=== PATIENT | female | born 1945 | race Caucasian/White ===

== ENCOUNTER 2016-08-23 19:43 | Inpatient (IN) ==
[2016-08-23] MEDS ORDERED: methylPREDNISolone 125 MG/2 ML VIAL IVP ONE (20:02)
[2016-08-23] MEDS ORDERED: Ipratropium/Albuterol Neb 3 ML IH ONE (20:02)
--- NOTE | 2016-08-23 20:04 | Emergency Department Note ---
Disposition Clinical Impression: Acute exacerbation of chronic obstructive airways disease, Congestive heart failure, Acute and chronic respiratory failure Disposition: Admitted As Inpatient Referrals: NO,PCP [Non-Partnered Physician] - Forms: ED Satisfaction Letter [facility] - General Chief Complaint: ED Shortness of Breath/Dyspnea Stated Complaint: KATJA Time Seen by Provider: 08/23/16 19:51 Source: patient, family Limitations: no limitations - History of Present Illness Pt Subjective Complaint: shortness of breath Onset (ago): hour(s) (8) Severity: mild Consistency/Duration: constant, gradually worsening Improves with: bronchodilators Worsens with: exertion Known history of: COPD, congestive heart failure Associated symptoms: Denies: chest pain, fever, sputum production Treatment prior to arrival: bronchodilator - Related Data Allergies Allergy/AdvReac Type Severity Reaction Status Date / Time No Known Allergies Allergy Verified 08/23/16 19:46 All systems ED: reviewed and negative except as stated. Constitutional: Reports: weakness. Denies: fever, chills Neurological: Reports: confusion (per daughter improved now) Past Medical History - Past Medical History Source: patient, old records reviewed, obtained from family (daughter ), nursing notes reviewed Medical history: Reports: CHF, COPD, diabetes, hypertension Psychiatric history: Reports: anxiety, depression - Social History Smoking Status: Never smoker Smokeless Tobacco Status: No Alcohol use: Reports: none Drug use: Reports: none Physical Exam - General Limitations: no limitations General appearance: alert, in no apparent distress - Head Head exam: atraumatic, normocephalic, normal inspection - Eye Eye exam: Present: normal appearance, PERRL, EOMI - ENT ENT exam: normal exam, normal oropharynx, mucous membranes moist - Neck Neck exam: Present: normal inspection, full ROM, trachea midline - Chest Chest inspection: Present: normal inspection, symmetric chest wall rise - Respiratory Respiratory exam: Present: respiratory distress (milde), wheezes (scattered), accessory muscle use, prolonged expiratory phase - Cardiovascular Cardiovascular exam: Present: normal rhythm, tachycardia, other (3+ pitting edema) - Abdominal Exam Abdominal exam: Present: soft, Non-Tender. Absent: tenderness, distention, guarding, rebound, rigidity - Back Exam Back exam: Present: normal inspection, full ROM. Absent: tenderness - Neurological Exam Neurological exam: Present: alert, oriented X3 - Psychiatric Psychiatric exam: Present: normal affect, normal mood - Skin Skin exam: Present: warm, dry, intact, normal color Course - Reevaluation(s) Reevaluation #1: Patient states she does not feel feels better I think she has chronic issues with hypoxemia the daughter and her state that she normally runs 90% or lower home despite home oxygen Time: 22:31 Reevaluation #2: dr. paris to admit Time: 22:31 Vital Signs Temperature 98.8 F 08/23/16 19:46 Pulse Rate 111 08/23/16 19:46 Respiratory Rate 20 08/23/16 19:46 Blood Pressure 158/52 08/23/16 19:46 O2 Sat by Pulse Oximetry 83 L 08/23/16 19:46 Temperature 98.8 F 08/23/16 19:46 Pulse Rate 94 08/23/16 21:56 Respiratory Rate 20 08/23/16 21:56 Blood Pressure 154/60 08/23/16 21:56 O2 Sat by Pulse Oximetry 86 L 08/23/16 21:56 Oxygen Delivery Oxygen Delivery Nasal Cannula Shortness of Breath/Dyspnea - Differential Diagnosis Likely: acute exacerbation of chronic obstructive airways disease, congestive heart failure, pneumonia, asthma with exacerbation, pulmonary embolism, pneumothorax, arrhythmia - Medical Records Medical records reviewed: Yes I reviewed the patient's medical records. - Lab Data Lab results reviewed: Yes I reviewed the patient's lab results. Result diagrams: 08/23/16 20:33 08/23/16 20:33 Lab Results 08/23/16 08/23/16 08/23/16 Range/Units 20:20 20:33 20:33 WBC 13.6 H (4.3-11.1) K/mcL RBC 4.04 (3.82-4.97) M/mcL Hgb 12.2 (11.5-15.4) g/dL Hct 38.1 (35.3-44.9) % MCV 94.3 (83.0-100.0) fL MCH 30.2 (28.0-33.3) pg MCHC 32.0 (31.6-35.5) g/dL RDW 15.9 H (11.5-14.5) % Plt Count 153 (140-400) K/mcL MPV 10.3 (9.4-12.4) fL Immature Gran % 0.5 (0-4) % Seg Neutrophils % 83.2 % Lymphocytes % 8.6 % Monocytes % 7.3 % Eosinophils % 0.2 % Basophils % 0.2 % Neutrophils # 11.3 H (1.6-8.9) K/mcL Lymphocytes # 1.2 (0.6-4.6) K/mcL Monocytes # 1.0 (0.0-1.3) K/mcL Eosinophils # 0.0 (0.0-0.6) K/mcL Basophils # 0.0 (0.0-0.2) K/mcL PT 11.8 (9.4-12.1) Seconds INR 1.1 APTT 28.4 (26.0-36.0) Seconds ABG pH 7.40 (7.32-7.45) pH Units ABG pCO2 48 H (35-45) mmHg ABG pO2 80 L (85-104) mmHg ABG HCO3 29.7 H (21-27) mEQ/L ABG Total CO2 31.2 H (20-26) mEq/L ABG O2 Saturation 96 (95-98) % ABG Base Excess 4.1 H (-2.0 to 3.0) mEq/L Blood Gas Modality NRB Inspired O2 100 % Sodium (136-145) mEq/L Potassium (3.5-4.5) mEq/L Chloride (98-109) mEq/L Carbon Dioxide (19-29) mEq/L BUN (7-20) mg/dL Creatinine (0.57-1.11) mg/dL Est GFR ( Amer) (> 60) Est GFR (Non-Af Amer) (> 60) BUN/Creatinine Ratio (6-26) Glucose (70-99) mg/dL Calculated Osmolality (280-300) Calcium (8.6-10.8) mg/dL Troponin I (0-0.03) ng/mL B-Natriuretic Peptide (0-100) pg/mL 08/23/16 08/23/16 08/23/16 Range/Units 20:33 20:33 20:33 WBC (4.3-11.1) K/mcL RBC (3.82-4.97) M/mcL Hgb (11.5-15.4) g/dL Hct (35.3-44.9) % MCV (83.0-100.0) fL MCH (28.0-33.3) pg MCHC (31.6-35.5) g/dL RDW (11.5-14.5) % Plt Count (140-400) K/mcL MPV (9.4-12.4) fL Immature Gran % (0-4) % Seg Neutrophils % % Lymphocytes % % Monocytes % % Eosinophils % % Basophils % % Neutrophils # (1.6-8.9) K/mcL Lymphocytes # (0.6-4.6) K/mcL Monocytes # (0.0-1.3) K/mcL Eosinophils # (0.0-0.6) K/mcL Basophils # (0.0-0.2) K/mcL PT (9.4-12.1) Seconds INR APTT (26.0-36.0) Seconds ABG pH (7.32-7.45) pH Units ABG pCO2 (35-45) mmHg ABG pO2 (85-104) mmHg ABG HCO3 (21-27) mEQ/L ABG Total CO2 (20-26) mEq/L ABG O2 Saturation (95-98) % ABG Base Excess (-2.0 to 3.0) mEq/L Blood Gas Modality Inspired O2 % Sodium 137 (136-145) mEq/L Potassium 4.9 H (3.5-4.5) mEq/L Chloride 97 L (98-109) mEq/L Carbon Dioxide 25 (19-29) mEq/L BUN 44 H (7-20) mg/dL Creatinine 1.51 H (0.57-1.11) mg/dL Est GFR ( Amer) 41 L (> 60) Est GFR (Non-Af Amer) 34 L (> 60) BUN/Creatinine Ratio 29 H (6-26) Glucose 183 H (70-99) mg/dL Calculated Osmolality 300 (280-300) Calcium 9.8 (8.6-10.8) mg/dL Troponin I 0.01 (0-0.03) ng/mL B-Natriuretic Peptide 90 (0-100) pg/mL - Radiology Data Radiology results reviewed: Yes I reviewed the patient's radiology results. Critical Care Time Critical Care Time: Yes Total Critical Care Time: 35 Attestation: Critical care performed: Time is exclusive of separately billable procedures. Time includes: direct patient care, patient reassessment, coordination of patient care, interpretation of data (laboratory data, radiology data, and respiratory data), review of patient's medical records, medical consultation and documentation of patient care. Procedures included in critical care time: Procedures excluded from critical care time:
[2016-08-23 20:30] LABS: ABG Base Excess 4.1 mEq/L (-2.0 to 3.0); ABG HCO3 29.7 mEQ/L (21-27); ABG Oxygen Saturation 96 % (95-98); ABG PCO2 48 mmHg (35-45); ABG PO2 80 mmHg (85-104); ABG TCO2 31.2 mEq/L (20-26); Blood Gas FiO2 100 %
[2016-08-23 20:39] LABS: Basophils % 0.2 %; Eosinophils % 0.2 %; Hematocrit 38.1 % (35.3-44.9); Hemoglobin 12.2 g/dL (11.5-15.4); Immature Granulocytes % 0.5 % (0-4); Lymphocytes # 1.2 K/mcL (0.6-4.6); Lymphocytes % 8.6 %; Mean Corpuscular Hemoglobin 30.2 pg (28.0-33.3); Mean Corpuscular Volume 94.3 fL (83.0-100.0); Mean Platelet Volume 10.3 fL (9.4-12.4); Monocytes % 7.3 %; Neutrophils # 11.3 K/mcL (1.6-8.9); Platelet Count 153 K/mcL (140-400); Red Blood Count 4.04 M/mcL (3.82-4.97); Red Cell Distribution Width 15.9 % (11.5-14.5); Segmented Neutrophils % 83.2 %
[2016-08-23 20:51] LABS: Calcium 9.8 mg/dL (8.6-10.8); Potassium 4.9 mEq/L (3.5-4.5)
[2016-08-23 21:10] LABS: INR 1.1; Prothrombin Time 11.8 Seconds (9.4-12.1)
[2016-08-23 21:13] LABS: Activated Partial Thrombo Time 28.4 Seconds (26.0-36.0)
[2016-08-23] MEDS ORDERED: Furosemide 40 MG/4 ML VIAL IVP ONE (21:13)
[2016-08-23] MEDS ORDERED: Levofloxacin 750 MG/150 ML 750 MG/150 ML BAG IVPB ONE (22:16)
[2016-08-24] MEDS ORDERED: *HR* HYDROcodone/Acet 5/325 mg TABLET PO PRN (00:20)
[2016-08-24] MEDS ORDERED: Acetaminophen 325 MG TABLET PO PRN (00:20)
[2016-08-24] MEDS ORDERED: Naloxone 0.4 MG/ML INJ IVP PRN (00:20)
[2016-08-24] MEDS ORDERED: Fluticasone Propionate Nasal 50 MCG/SPRAY BOTTLE NS PRN (00:23)
[2016-08-24] MEDS ORDERED: hydrOXYzine pamoate 25 MG CAPSULE PO PRN (00:23)
[2016-08-24] MEDS ORDERED: Albuterol 2.5 MG/3 ML NEBULIZER IH PRN (00:25)
[2016-08-24] MEDS ORDERED: D5% in Water 1,000 ML IV PRN (00:27)
[2016-08-24] MEDS ORDERED: *HR* Dextrose 50 % in Water (Syg) 50 ML SYRINGE IVP PRN (00:27)
[2016-08-24] MEDS ORDERED: Dextrose Gel 15 GM PO PRN ×2 (00:27)
--- NOTE | 2016-08-24 00:38 | Internal Med History&Physical ---
Date of Encounter: 08/24/16 Time of Encounter: 00:31 Assessment and Plan (1) Acute and chronic respiratory failure Current visit: Yes Status: Acute Patient wears 2-4L of oxygen at night and PRN at home. She has increased shortness of breath, cough, wheeze. She reports satting in the 70's at home on room air. She is currently satting 90% on 5L NC. CXR showed vascular congestion with bilateral lower lobe atelectasis or infiltrate. ABG showed hypercapnea with pH 7.2, PCO2 48, PO2 80, HCO3 29.7, CO2 31.2 and O2 sat 96%. Lasix for diuresis and CHF exacerbation, solumedrol for COPD exacerbation Duoneb treatments QIDR Albuterol nebulizer Q2hr PRN titrate O2 to maintain Oxygen saturation > 88% Qualifiers: Respiratory failure complication: hypoxia and hypercapnia Qualified Code(s) : J96.21 - Acute and chronic respiratory failure with hypoxia; J96.22 - Acute and chronic respiratory failure with hypercapnia (2) Acute on chronic congestive heart failure Current visit: Yes Status: Acute Patient with increased shortness of breath, increased bilateral lower extremity edema. Reports history of CHF, but no recent Echo. CXR shows vascular congestion with bilateral lower lobe atelectasis or infiltrate. 40mg Lasix IVP daily Echocardiogram ordered. titrate O2 to maintain oxygen saturation > 88% Qualifiers: Congestive heart failure type: unspecified congestive heart failure type Qualified Code(s): I50.9 - Heart failure, unspecified (3) Acute kidney injury Current visit: Yes Status: Acute Creatinine 1.51 up from previous of 1.04. Likely cardiorenal with acute exacerbation of CHF. Patient also on scheduled NSAIDS at home. Hold NSAIDS and metformin Recheck chemistry in the morning. (4) Type 2 diabetes mellitus Current visit: Yes Status: Acute Diabetic diet Hold metformin check blood sugar ACHS Sliding scale correction dose insulin ACHS hypoglycemic protocol Qualifiers: Diabetes mellitus complication status: without complication Diabetes mellitus group home insulin use: without terminal operations manager use Qualified Code(s): E11.9 - Type 2 diabetes mellitus without complications (5) Acute exacerbation of chronic obstructive airways disease Current visit: Yes Status: Acute Patient wears 2-4L of oxygen at night and PRN at home. She has increased shortness of breath, cough, wheeze. She reports satting in the 70's at home on room air. She is currently satting 90% on 5L NC. CXR showed vascular congestion with bilateral lower lobe atelectasis or infiltrate. ABG showed hypercapnea with pH 7.2, PCO2 48, PO2 80, HCO3 29.7, CO2 31.2 and O2 sat 96%. Duoneb treatments QIDR Albuterol nebulizer Q2hr PRN titrate O2 to maintain Oxygen saturation > 88% Solumedrol 40mg IVP Q8 hours (6) DVT prophylaxis Current visit: Yes Status: Acute Ambulate with assistance anti-embolic stockings Heparin 5,000u SQ BID Internal Medicine - H&P: HPI Chief complaint: shortness of breath Admitted From: Emergency Dept Plans for Post Hospital Care: Home History of present illness: Ms. Pollack is a 70 year old female with CHF, COPD, type 2 diabetes, HTN, hyperlipidemia who presented to the ED today with increased shortness of breath. She reports she has noticed increased shortness of breath, cough, wheezing over the last few days. She also felt weak and drowsy today. She has also noted increased swelling in her lower extremities. She has a pulse oximeter at home and stated her pulse-ox was in the 70's on room air at home. She usually wears 2-4L of oxygen at home at night and PRN. She denies any chest pain, palpitations, headache, fever, chills. She does endorse sweats on and off. She denies any nausea, vomiting or abdominal pain. Evaluation in the ED was significant for CXR which showed vascular congestion with bilateral lower lobe atelectasis or infiltrate. She had elevated WBC count to 13.6. She has acute kidney injury with creatinine of 1.51. ABG showed hypercapnea with PCO2 of 48. Troponin was negative at 0.01 and BNP was 90. On exam, patient alert and oriented, in no distress. Her lungs have diffuse rhonchi, and she is satting 90% on 5L NC. She has bilateral lower extremity +3 edema. Past Med Surg Social Fam HX - Past Medical History Medical history: CHF, COPD, diabetes, hypertension Psychiatric history: anxiety, depression - Past Surgical History Surgical History: appendectomy, - Social History Smoking Status: Former smoker (100 Pack year history) Smokeless Tobacco Status: No Alcohol use: none Drug use: none - Family History Mother Living Status: Age at : 68 Cause of : Cancer Hx Family Cardiac Disorders: Yes Father Living Status: Age at : 53 Cause of : Cancer Hx Family Cancer: Yes Internal Medicine - H&P: Meds Acetaminophen w/Cod 300-30 mg [Tylenol w/Codeine #3] 1 each PO TID PRN 08/23/16 [History] Albuterol Sulfate [Albuterol Inhaler] 2 puff IH Q4H PRN 08/23/16 [History] Amitriptyline [Elavil] 10 mg PO HS 08/23/16 [History] Ascorbate Calcium [Vitamin C] 500 mg PO DAILY 08/23/16 [History] Aspirin 81 mg PO DAILY 08/23/16 [History] Biotin 1 mg PO DAILY 08/23/16 [History] Calcium Carbonate/Vitamin D3 [Calcium 600 with Vit D Chew Tb] 1 each PO DAILY [History] Ergocalciferol (VITAMIN D2) [Vitamin D] 400 unit PO DAILY 08/23/16 [History] Fish Oil/Dha/Epa [Fish Oil 1,200 mg Fish Oil] 1 each PO DAILY 08/23/16 [History] Fluticasone Propionate Nasal [Flonase] 50 mcg NS DAILY PRN 08/23/16 [History] Furosemide [Lasix] 40 mg PO BID 08/23/16 [History] Hydroxyzine HCl [Hydroxyzine HCl] 25 mg PO HS PRN 08/23/16 [History] Lisinopril [Lisinopril] 40 mg PO DAILY 08/23/16 [History] Lovastatin [Lovastatin] 40 mg PO QPM 08/23/16 [History] Meloxicam [Meloxicam] 15 mg PO DAILY 08/23/16 [History] Metformin [Glucophage] 500 mg PO DAILY 08/23/16 [History] Metoprolol [Lopressor] 100 mg PO BID 08/23/16 [History] Tiotropium Carmine [Spiriva] 18 mcg IH DAILY 08/23/16 [History] Vitamin B Complex 1 each PO DAILY 08/23/16 [History] Zinc Sulfate [Zinc-15] 66 mg PO DAILY 08/23/16 [History] Allergies No Known Allergies Allergy (Verified 08/23/16 19:46) All Systems PM: A 10-system review of systems was performed and is negative for pertinent findings except as documented above in the HPI. - Constitutional Constitutional: night sweats, no chills, no fever(s) - EENT Eyes: no change in vision, no discharge, no pain, no photophobia Ears: no ear discharge, no ear pain, no tinnitus Nose, mouth and throat: no dysphagia, no nasal discharge, no neck pain, no sore throat - Cardiovascular Cardiovascular ROS IM: diaphoresis, dyspnea, dyspnea on exertion, no chest pain , no lightheadedness, no palpitations, no syncope - Respiratory Respiratory: cough, dyspnea, dyspnea on exertion, wheezing, no excessive phlegm production - Gastrointestinal Gastrointestinal: no abdominal pain, no diarrhea, no hematemesis, no hematochezia, no melena, no nausea, no vomiting - Genitourinary Genitourinary: no change in urinary stream, no dysuria, no flank pain, no hematuria - Musculoskeletal Musculoskeletal ROS IM: no numbness, no tingling - Integumentary Integumentary IM: no rash, no unusual bruising - Neurological Neurological ROS: tingling (BLE chronic diabetic neuropathy), no confusion, no convulsions, no focal weakness, no numbness, no tremor(s) - Hematologic/Lymphatic Hematologic/Lymphatic: no easy bruising - Constitutional Vitals: Temp Pulse Resp BP Pulse Ox 98.8 F 92 18 142/81 88 L 08/23/16 23:58 08/23/16 23:58 08/23/16 23:58 08/23/16 23:58 08/23/16 23:58 General appearance: Present: A&O X 3, morbidly obese, no acute distress - Head Head exam: Present: atraumatic, normocephalic - Eye Eye exam: Present: PERRL, conjuntiva pink, sclera anicteric Pupils: Present: PERRL - Neck Neck exam general surgery: Present: supple, trachea midline. Absent: lymphadenopathy - Respiratory Respiratory exam: Present: rhonchi, wheezes. Absent: accessory muscle use, rales - Cardiovascular Cardiovascular exam: Present: RRR, +S1, +S2. Absent: diastolic murmur, gallop, rubs, systolic murmur - GI/Abdominal GI/Abdominal exam: Present: normal bowel sounds, soft, no peritoneal signs. Absent: distended, tenderness - Extremities Exam Extremities exam: Present: pedal edema (+3 BLE edema), warm, radial pulses palpable and symetrical. Absent: calf tenderness, cyanotic - Neurological Exam Neurological exam: Present: CN II-XII intact, oriented X3, no focal deficits. Absent: facial droop, speech deficit - Skin Skin exam: Present: dry, intact Internal Med - H&P Results - Labs CBC & Chem 7: 08/23/16 20:33 08/23/16 20:33 Labs: All Lab Results (24 Hours) 08/23/16 08/23/16 08/23/16 Range/Units 20:20 20:33 20:33 WBC 13.6 H (4.3-11.1) K/mcL RBC 4.04 (3.82-4.97) M/mcL Hgb 12.2 (11.5-15.4) g/dL Hct 38.1 (35.3-44.9) % MCV 94.3 (83.0-100.0) fL MCH 30.2 (28.0-33.3) pg MCHC 32.0 (31.6-35.5) g/dL RDW 15.9 H (11.5-14.5) % Plt Count 153 (140-400) K/mcL MPV 10.3 (9.4-12.4) fL Immature Gran % 0.5 (0-4) % Seg Neutrophils % 83.2 % Lymphocytes % 8.6 % Monocytes % 7.3 % Eosinophils % 0.2 % Basophils % 0.2 % Neutrophils # 11.3 H (1.6-8.9) K/mcL Lymphocytes # 1.2 (0.6-4.6) K/mcL Monocytes # 1.0 (0.0-1.3) K/mcL Eosinophils # 0.0 (0.0-0.6) K/mcL Basophils # 0.0 (0.0-0.2) K/mcL PT 11.8 (9.4-12.1) Seconds INR 1.1 APTT 28.4 (26.0-36.0) Seconds ABG pH 7.40 (7.32-7.45) pH Units ABG pCO2 48 H (35-45) mmHg ABG pO2 80 L (85-104) mmHg ABG HCO3 29.7 H (21-27) mEQ/L ABG Total CO2 31.2 H (20-26) mEq/L ABG O2 Saturation 96 (95-98) % ABG Base Excess 4.1 H (-2.0 to 3.0) mEq/L Blood Gas Modality NRB Inspired O2 100 % Sodium (136-145) mEq/L Potassium (3.5-4.5) mEq/L Chloride (98-109) mEq/L Carbon Dioxide (19-29) mEq/L BUN (7-20) mg/dL Creatinine (0.57-1.11) mg/dL Est GFR ( Amer) (> 60) Est GFR (Non-Af Amer) (> 60) BUN/Creatinine Ratio (6-26) Glucose (70-99) mg/dL Calculated Osmolality (280-300) Calcium (8.6-10.8) mg/dL Troponin I (0-0.03) ng/mL B-Natriuretic Peptide (0-100) pg/mL 08/23/16 08/23/16 08/23/16 Range/Units 20:33 20:33 20:33 WBC (4.3-11.1) K/mcL RBC (3.82-4.97) M/mcL Hgb (11.5-15.4) g/dL Hct (35.3-44.9) % MCV (83.0-100.0) fL MCH (28.0-33.3) pg MCHC (31.6-35.5) g/dL RDW (11.5-14.5) % Plt Count (140-400) K/mcL MPV (9.4-12.4) fL Immature Gran % (0-4) % Seg Neutrophils % % Lymphocytes % % Monocytes % % Eosinophils % % Basophils % % Neutrophils # (1.6-8.9) K/mcL Lymphocytes # (0.6-4.6) K/mcL Monocytes # (0.0-1.3) K/mcL Eosinophils # (0.0-0.6) K/mcL Basophils # (0.0-0.2) K/mcL PT (9.4-12.1) Seconds INR APTT (26.0-36.0) Seconds ABG pH (7.32-7.45) pH Units ABG pCO2 (35-45) mmHg ABG pO2 (85-104) mmHg ABG HCO3 (21-27) mEQ/L ABG Total CO2 (20-26) mEq/L ABG O2 Saturation (95-98) % ABG Base Excess (-2.0 to 3.0) mEq/L Blood Gas Modality Inspired O2 % Sodium 137 (136-145) mEq/L Potassium 4.9 H (3.5-4.5) mEq/L Chloride 97 L (98-109) mEq/L Carbon Dioxide 25 (19-29) mEq/L BUN 44 H (7-20) mg/dL Creatinine 1.51 H (0.57-1.11) mg/dL Est GFR ( Amer) 41 L (> 60) Est GFR (Non-Af Amer) 34 L (> 60) BUN/Creatinine Ratio 29 H (6-26) Glucose 183 H (70-99) mg/dL Calculated Osmolality 300 (280-300) Calcium 9.8 (8.6-10.8) mg/dL Troponin I 0.01 (0-0.03) ng/mL B-Natriuretic Peptide 90 (0-100) pg/mL
[2016-08-24] MEDS: Metoprolol 100 MG TABLET PO SCH ×3 (00:56→20:59)
[2016-08-24] MEDS: Insulin LISPRO 300 UNITS/3 ML VIAL SQ SCH ×5 (00:56→21:00)
[2016-08-24] MEDS: Ipratropium/Albuterol Neb 3 ML IH SCH ×5 (02:47→23:16)
[2016-08-24 05:26] LABS: Basophils % 0.1 %; Hematocrit 38.1 % (35.3-44.9); Hemoglobin 12.3 g/dL (11.5-15.4); Immature Granulocytes % 0.6 % (0-4); Lymphocytes # 0.6 K/mcL (0.6-4.6); Lymphocytes % 5.6 %; Mean Corpuscular HGB Conc 32.3 g/dL (31.6-35.5); Mean Corpuscular Hemoglobin 30.5 pg (28.0-33.3); Mean Corpuscular Volume 94.5 fL (83.0-100.0); Mean Platelet Volume 11.1 fL (9.4-12.4); Monocytes # 0.2 K/mcL (0.0-1.3); Neutrophils # 10.5 K/mcL (1.6-8.9); Platelet Count 150 K/mcL (140-400); Red Blood Count 4.03 M/mcL (3.82-4.97); Red Cell Distribution Width 15.9 % (11.5-14.5); Segmented Neutrophils % 91.7 %
[2016-08-24 05:36] LABS: Hemoglobin A1C 6.3 %
[2016-08-24 05:45] LABS: Calcium 9.8 mg/dL (8.6-10.8); Potassium 4.8 mEq/L (3.5-4.5)
[2016-08-24] MEDS: *HR* Heparin 5,000 UNIT/ML VIAL SQ SCH ×2 (06:35→17:05)
[2016-08-24] MEDS: MethylPREDNISolone 40 MG/ML VIAL IVP SCH ×2 (08:37→17:06)
[2016-08-24] MEDS: Ascorbic Acid 500 MG TABLET PO SCH (08:38)
[2016-08-24] MEDS: BIOTIN 1 MG PO SCH (08:38)
[2016-08-24] MEDS: Vitamin B Complex/Vit C/Vit E 1 EACH TABLET PO SCH (08:38)
[2016-08-24] MEDS: Aspirin 81 MG TAB.CHEW PO SCH (08:38)
[2016-08-24] MEDS: CALCIUM PO SCH (08:38)
[2016-08-24] MEDS: VIT D PO SCH (08:38)
[2016-08-24] MEDS: ZINC SULFATE 66 MG PO SCH (08:39)
[2016-08-24] MEDS ORDERED: Furosemide 40 MG/4 ML VIAL IVP SCH (09:00)
--- NOTE | 2016-08-24 09:58 | Internal Med Progress Note ---
<Simon Pickard - Last Filed: 08/24/16 11:42> Date of Encounter: 08/24/16 Time of Encounter: 09:58 - Assessment and plan (1) Acute on chronic respiratory failure Current Visit: Yes Status: Acute Assessment and plan: Likely multifactorial from obesity hypoven syndrome, uncontrolled CAMILLE, AE of COPD and possible underlying CHF, will con't to bronchodilate her and diresis with lasix, her SOB and b/l LE edema improved. Qualifiers: Qualified Code(s): J96.20 - Acute and chronic respiratory failure, unspecified whether with hypoxia or hypercapnia (2) Hx of congestive heart failure Current Visit: Yes Status: Acute Assessment and plan: Will obtain echo, renal function worsened, so will back off of lasix and change to po, strict I and O and check daily weight. Daily fluid restriction. (3) Acute worsening of stage 3 chronic kidney disease Current Visit: Yes Status: Acute Assessment and plan: Could be from overdiuresing her, will back off of lasix and switch to PO. Con't to monitor renal function. (4) Acute exacerbation of chronic obstructive airways disease Current Visit: Yes Status: Acute Assessment and plan: Con't symbicort, IV steroid, duoneb, oxygen support and po abx. (5) Type 2 diabetes mellitus Current Visit: Yes Status: Acute Assessment and plan: Hold po med and con't SSI. 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 - Subjective Interval history: Pt seen and examined, states her breathing is better than yesterday, b/l le edema improved. - Constitutional Vitals: Temp Pulse Resp BP Pulse Ox 97.4 F L 72 18 179/59 89 L 08/24/16 07:39 08/24/16 07:39 08/24/16 07:39 08/24/16 07:39 08/24/16 07:39 General appearance: Present: cooperative, A&O X 3, morbidly obese, no acute distress - Head Head exam: Present: atraumatic, normocephalic - Eye Eye exam: Present: PERRL, conjuntiva pink, sclera anicteric Pupils: Present: PERRL - Neck Neck exam general surgery: Present: supple, trachea midline. Absent: lymphadenopathy - Respiratory Respiratory exam: Present: rales (at base b/l). Absent: accessory muscle use, rhonchi, wheezes - Cardiovascular Cardiovascular exam: Present: RRR, +S1, +S2. Absent: diastolic murmur, gallop, rubs, systolic murmur - GI/Abdominal GI/Abdominal exam: Present: normal bowel sounds, soft, no peritoneal signs. Absent: distended, tenderness - Extremities Exam Extremities exam: Present: pedal edema (mild non-pitting b/l), warm, radial pulses palpable and symetrical. Absent: calf tenderness, cyanotic - Neurological Exam Neurological exam: Present: CN II-XII intact, oriented X3, no focal deficits. Absent: pronater drift, facial droop, speech deficit - Skin Skin exam: Present: dry, intact Internal Medicine: Result - Labs CBC & Chem 7: 08/24/16 04:42 08/24/16 04:42 Labs: Short CBC 08/24/16 Range/Units 04:42 WBC 11.5 H (4.3-11.1) K/mcL Hgb 12.3 (11.5-15.4) g/dL Hct 38.1 (35.3-44.9) % Plt Count 150 (140-400) K/mcL Neutrophils # 10.5 H (1.6-8.9) K/mcL BMP 08/24/16 04:42 Sodium 137 Potassium 4.8 H Chloride 96 L Carbon Dioxide 24 BUN 46 H Creatinine 1.69 H Glucose 258 H Calcium 9.8 - ABG Interpretation ABG results: ABG ABG pH 7.40 pH Units (7.32-7.45) 08/23/16 20:20 ABG pCO2 48 mmHg (35-45) H 08/23/16 20:20 ABG pO2 80 mmHg (85-104) L 08/23/16 20:20 ABG O2 Saturation 96 % (95-98) 08/23/16 20:20 PT/INR, D-dimer PT 11.8 Seconds (9.4-12.1) 08/23/16 20:33 Consult Discharge Plan - Plan Referrals: Eduardo Hernandez Jr, MD [Primary Care Provider] - 09/13/16 3:00 pm <Darius Velazquez Kedar - Last Filed: 08/25/16 12:18> Date of Encounter: 08/24/16 - Constitutional Vitals: Temp Pulse Resp BP Pulse Ox 97.8 F 73 18 166/70 90 L 08/25/16 11:37 08/25/16 11:37 08/25/16 11:37 08/25/16 11:37 08/25/16 11:37 Internal Medicine: Result - Labs CBC & Chem 7: 08/24/16 04:42 08/25/16 03:21 Labs: BMP 08/25/16 03:21 Sodium 136 Potassium 5.4 H Chloride 99 Carbon Dioxide 24 BUN 55 H Creatinine 1.61 H Glucose 345 H Calcium 9.0 Urine 08/24/16 Range/Units 22:19 Urine Color Yellow (Yellow) Urine Clarity Cloudy A (Clear) Urine pH 5.0 (5.0-8.0) pH Units Ur Specific [place] 1.013 (1.010-1.025) Urine Protein Negative (Neg-Trace) mg/dL Urine Glucose (UA) 500 H (Normal) mg/dL - ABG Interpretation ABG results: ABG ABG pH 7.40 pH Units (7.32-7.45) 08/23/16 20:20 ABG pCO2 48 mmHg (35-45) H 08/23/16 20:20 ABG pO2 80 mmHg (85-104) L 08/23/16 20:20 ABG O2 Saturation 96 % (95-98) 08/23/16 20:20 PT/INR, D-dimer PT 11.8 Seconds (9.4-12.1) 08/23/16 20:33 - Attending Attestation I examined this patient and my medical decision-making was reviewed with the Resident Physician on 08/24/16. I agree with the documented findings, disposition and treatment plan as described except to the extent set forth below. Ms Pollack is currently in observation for acute hypoxic resp failure and CHF. She remains moderate to high risk due to potential of worsening respiratory symptoms Ms. Pollack is beginning to feel better. She still has a lot of dyspnea. No cough but is wheezing. Resp treatments help. No GI symptoms. Exam Alert. Comfortable Heart reg Diffuse wheeze I/P Acute on chronic hypoxic resp failure COPD exac MARISSA Diabetes Further diagnoses and plan as above
[2016-08-24] MEDS ORDERED: Perflutren Lipid Microsphere 1.3 ML in 0.9 % Sodium Chloride 8.7 ML IVP ONE (10:56)
--- NOTE | 2016-08-24 11:04 | Electrocardiograph Report ---
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
[2016-08-24] MEDS: Budesonide/Formoterol 160/4.5 MDI IH SCH ×2 (11:55→23:16)
[2016-08-24] MEDS: Azithromycin 250 MG TABLET PO SCH (12:22)
--- NOTE | 2016-08-24 14:17 | ECHO - Doppler Report ---
Echo with Imaging Enhancement Agent Name: Garima Pollack Date of Study: 08/24/2016 Date: 1945 Ht: 65.0 in Medical Record#: [id number] Age: 70 Wt: 280.0 lb Gender: Female BSA: 2.28 Order #: [id number] Location: [facility] Room #: 2NE22 Reading Physician: Ki Nicholson, DO, FACC, MORIAH, CHANDLER Cardiac Rehabilitation Specialist: Stefanie Fontaine, RVT Ordering Physician: Delma Madrid CNP Primary Physician: Eduardo Hernandez MD Indications: Shortness of breath, COPD Impressions: Technically sub-optimal due to poor echocardiographic windows. LVEF 55%. Normal LV chamber size and function. Mild concentric left ventricular hypertrophy. Mild left ventricular diastolic dysfunction. Right ventricle was not well visualized. Unable to estimate RVSP due to lack of TR jet. Valves were not well visualized on this study. Findings: Study Quality * Technically sub-optimal due to poor echocardiographic windows. ECG Findings * Normal sinus rhythm. Left Ventricle * LVEF 55%. * Normal LV chamber size and function. * Mild concentric left ventricular hypertrophy. * Mild left ventricular diastolic dysfunction. Right Ventricle * Right ventricle was not well visualized. Left Atrium * Left atrium is not well visualized. Right Atrium * Right atrium is not well visualized. Interatrial Septum * Interatrial septum not well evaluated. Aortic Valve * Aortic valve not well visualized. * No aortic stenosis. * No aortic regurgitation. Mitral Valve * Mitral valve not well visualized. * No mitral regurgitation. * No mitral stenosis. Tricuspid Valve * Tricuspid valve not well visualized. * No tricuspid regurgitation. * Unable to estimate RVSP due to lack of TR jet. Pulmonic Valve * Pulmonic valve not well visualized. Aorta * Normally sized aortic root. Pericardium * The pericardium appears normal. IVC * The IVC is not well evaluated. Pulmonary Artery * Pulmonary artery not well visualized. History Hypertension Diabetes Hypercholesteremia Congestive Heart Failure 12/2012 a Previous Echo was performed. Contrast: Definity 1.3 ml in 8.7 ml of saline 2 ml. Measurements: BP: 104/ 57 2D Normal Values RVIDd: 2.60 cm <2.7 cm IVSd: 1.30 cm 0.6 - 1.0 cm LVIDd: 4.90 cm 3.7 - 5.6 cm LVPWd: 1.30 cm 0.6 - 1.1 cm LVIDs: 3.90 cm 1.5 - 3.6 cm AO: 2.70 cm < 4.0 cm LA: 4.40 cm 2.0 - 4.0cm %FS: 20.40 cm >25 % LA volume: Mitral Valve Dec Time:194.00 msec Peak E:1.03 m/sec Peak A:1.29 m/sec E/A Ratio:0.8 E/E' Lat Ratio:13.4 E/E' Med Ratio:20.3 Updated by Ki Nicholson DO, MARK, MORIAH, CHANDLER on 08/24/2016 2:09:51 PM electronically signed on 08/24/2016 2:10:51 PM with status of [employer] [place]: 1=Normal, 2=Hypokinesis, 3=Akinesis, 4=Dyskinesis, 5=Aneurysmal, 6=Hyperkinetic, X=Not Visualized (Blank)=Missing
[2016-08-24] MEDS: Nystatin POWDER 30 GM BOTTLE TP SCH ×2 (20:59→21:00)
[2016-08-24 22:30] LABS: Bilirubin,Urine Negative (Negative); Blood,Urine Negative (Negative); Clarity,Urine Cloudy (Clear); Color,Urine Yellow (Yellow); Glucose,Urine (UA) 500 mg/dL (Normal); Ketones,Urine Negative (Negative); Leukocyte Esterase,Urine Large (Negative); Nitrite,Urine Negative (Negative); Protein,Urine Negative (Neg-Trace); Specific Gravity,Urine 1.013 (1.010-1.025); Urobilinogen,Urine Normal (Normal)
[2016-08-24 22:33] LABS: Bacteria,Urine Moderate per hpf (None-Few); Hyaline Casts,Urine None Seen per lpf (None-Few); RBC,Urine 0-3 per hpf (0-3); Squamous Epithelial Cell,Urine Many per lpf (None-Few); WBC,Urine TNTC per hpf (0-3)
[2016-08-25] MEDS: MethylPREDNISolone 40 MG/ML VIAL IVP SCH ×2 (00:33→08:37)
[2016-08-25] MEDS: Ipratropium/Albuterol Neb 3 ML IH SCH ×4 (04:06→21:59)
[2016-08-25 04:24] LABS: Potassium 5.4 mEq/L (3.5-4.5)
[2016-08-25] MEDS: *HR* Heparin 5,000 UNIT/ML VIAL SQ SCH ×2 (06:03→17:12)
[2016-08-25] MEDS: Insulin LISPRO 300 UNITS/3 ML VIAL SQ SCH ×4 (08:32→21:05)
[2016-08-25] MEDS: Vitamin B Complex/Vit C/Vit E 1 EACH TABLET PO SCH (08:36)
[2016-08-25] MEDS: Furosemide 20 MG TABLET PO SCH ×2 (08:36→17:12)
[2016-08-25] MEDS: Metoprolol 100 MG TABLET PO SCH ×2 (08:36→21:05)
[2016-08-25] MEDS: Aspirin 81 MG TAB.CHEW PO SCH (08:37)
[2016-08-25] MEDS: BIOTIN 1 MG PO SCH (08:37)
[2016-08-25] MEDS: VIT D PO SCH (08:37)
[2016-08-25] MEDS: CALCIUM PO SCH (08:37)
[2016-08-25] MEDS: Azithromycin 250 MG TABLET PO SCH (08:39)
[2016-08-25] MEDS: Ascorbic Acid 500 MG TABLET PO SCH (08:39)
[2016-08-25] MEDS: ZINC SULFATE 66 MG PO SCH (08:39)
--- NOTE | 2016-08-25 09:01 | Internal Med Progress Note ---
<Simon Pickard - Last Filed: 08/25/16 10:01> Date of Encounter: 08/25/16 Time of Encounter: 09:01 - Assessment and plan (1) Acute on chronic respiratory failure Current Visit: Yes Status: Acute Assessment and plan: Likely multifactorial from obesity hypoven syndrome, uncontrolled CAMILLE, AE of COPD, will con't to bronchodilate her and diresis with lasix, her SOB and b/l LE edema improved, she states that she will have sleep study as outpt near future. Her SOB is close to baseline, likely d/c tomorrow. Qualifiers: Qualified Code(s): J96.21 - Acute and chronic respiratory failure with hypoxia (2) Hx of congestive heart failure Current Visit: Yes Status: Acute Assessment and plan: Echo was normal, but pt states that she was diagnosed with CHF in the past and she takes lasix at home, con't po lasix, strict I and O and check daily weight. Daily fluid restriction. (3) Acute worsening of stage 3 chronic kidney disease Current Visit: Yes Status: Acute Assessment and plan: Improved after backing off of lasix and switched to PO. Con't to monitor renal function. (4) Acute exacerbation of chronic obstructive airways disease Current Visit: Yes Status: Acute Assessment and plan: Con't symbicort, IV steroid, duoneb, oxygen support and po abx. (5) Type 2 diabetes mellitus Current Visit: Yes Status: Acute Assessment and plan: Hyperglycemic, will add basal and increase to med SSI. Qualifiers: Diabetes mellitus complication status: without complication Diabetes mellitus group home insulin use: without terminal gauger use Qualified Code(s): E11.9 - Type 2 diabetes mellitus without complications (6) Hyperkalemia Current Visit: Yes Status: Acute Assessment and plan: No meds that will make potassium worse, on lasix, con't to monitor. (7) UTI (urinary tract infection) Current Visit: Yes Status: Acute Assessment and plan: UA suggests UTI, she has multiple hx of UTI, will start her on levaquin for possible complicated UTI (hx of DM II), f/u on its culture. Qualifiers: Qualified Code(s): N39.0 - Urinary tract infection, site not specified (8) DVT prophylaxis Current Visit: Yes Status: Acute Assessment and plan: Heparin SQ BID. - Subjective Interval history: Pt seen and examined, states her breathing is better than yesterday, b/l le edema improved, hx of multiple UTI, no burning/dysuria now. - Constitutional Vitals: Temp Pulse Resp BP Pulse Ox 97.8 F 66 18 155/80 92 L 08/25/16 07:45 08/25/16 07:45 08/25/16 07:45 08/25/16 07:45 08/25/16 07:45 General appearance: Present: cooperative, A&O X 3, morbidly obese, no acute distress - Head Head exam: Present: atraumatic, normocephalic - Eye Eye exam: Present: PERRL, conjuntiva pink, sclera anicteric Pupils: Present: PERRL - Neck Neck exam general surgery: Present: supple, trachea midline. Absent: lymphadenopathy - Respiratory Respiratory exam: Present: decreased breath sounds (at base b/l). Absent: accessory muscle use, rales, rhonchi, wheezes - Cardiovascular Cardiovascular exam: Present: RRR, +S1, +S2. Absent: diastolic murmur, gallop, rubs, systolic murmur - GI/Abdominal GI/Abdominal exam: Present: normal bowel sounds, soft, no peritoneal signs. Absent: distended, tenderness - Extremities Exam Extremities exam: Present: pedal edema (non-pitting b/l), warm, radial pulses palpable and symetrical. Absent: calf tenderness, cyanotic - Neurological Exam Neurological exam: Present: CN II-XII intact, oriented X3, no focal deficits. Absent: pronater drift, facial droop, speech deficit - Skin Skin exam: Present: dry, intact Internal Medicine: Result - Labs CBC & Chem 7: 08/24/16 04:42 08/25/16 03:21 Labs: BMP 08/25/16 03:21 Sodium 136 Potassium 5.4 H Chloride 99 Carbon Dioxide 24 BUN 55 H Creatinine 1.61 H Glucose 345 H Calcium 9.0 Urine 08/24/16 Range/Units 22:19 Urine Color Yellow (Yellow) Urine Clarity Cloudy A (Clear) Urine pH 5.0 (5.0-8.0) pH Units Ur Specific [place] 1.013 (1.010-1.025) Urine Protein Negative (Neg-Trace) mg/dL Urine Glucose (UA) 500 H (Normal) mg/dL - ABG Interpretation ABG results: ABG ABG pH 7.40 pH Units (7.32-7.45) 08/23/16 20:20 ABG pCO2 48 mmHg (35-45) H 08/23/16 20:20 ABG pO2 80 mmHg (85-104) L 08/23/16 20:20 ABG O2 Saturation 96 % (95-98) 08/23/16 20:20 PT/INR, D-dimer PT 11.8 Seconds (9.4-12.1) 08/23/16 20:33 Consult Discharge Plan - Plan Referrals: Eduardo Hernandez Jr, MD [Primary Care Provider] - 09/13/16 3:00 pm <Darius Velazquez - Last Filed: 08/25/16 15:08> Date of Encounter: 08/25/16 - Assessment and plan (1) Acute on chronic respiratory failure Current Visit: Yes Status: Acute Qualifiers: Respiratory failure complication: hypoxia Qualified Code(s): J96.21 - Acute and chronic respiratory failure with hypoxia (2) Acute on chronic congestive heart failure Current Visit: Yes Status: Acute Qualifiers: Congestive heart failure type: diastolic Qualified Code(s): I50.33 - Acute on chronic diastolic (congestive) heart failure (3) Acute exacerbation of chronic obstructive airways disease Current Visit: Yes Status: Acute (4) UTI (urinary tract infection) Current Visit: Yes Status: Acute Qualifiers: Urinary tract infection type: acute cystitis Hematuria presence: without hematuria Qualified Code(s): N30.00 - Acute cystitis without hematuria (5) Type 2 diabetes mellitus Current Visit: Yes Status: Chronic Qualifiers: Diabetes mellitus complication status: without complication Diabetes mellitus terminal gauger insulin use: without group home use Qualified Code(s): E11.9 - Type 2 diabetes mellitus without complications (6) Acute kidney injury Current Visit: Yes Status: Acute (7) Morbid obesity with BMI of 45.0-49.9, adult Current Visit: Yes Status: Chronic - Constitutional Vitals: Temp Pulse Resp BP Pulse Ox 97.8 F 73 18 166/70 90 L 08/25/16 11:37 08/25/16 11:37 08/25/16 11:37 08/25/16 11:37 08/25/16 11:37 Internal Medicine: Result - Labs CBC & Chem 7: 08/24/16 04:42 08/25/16 03:21 - ABG Interpretation ABG results: ABG ABG pH 7.40 pH Units (7.32-7.45) 08/23/16 20:20 ABG pCO2 48 mmHg (35-45) H 08/23/16 20:20 ABG pO2 80 mmHg (85-104) L 08/23/16 20:20 ABG O2 Saturation 96 % (95-98) 08/23/16 20:20 PT/INR, D-dimer PT 11.8 Seconds (9.4-12.1) 08/23/16 20:33 - Attending Attestation I examined this patient and my medical decision-making was reviewed with the Resident Physician on 08/25/16. I agree with the documented findings, disposition and treatment plan as described except to the extent set forth below. Ms. Pollack is currently admitted for acute on chronic hypoxic resp failure and CHF. She remains moderate to high risk due to potential for worsening respiratory status. Ms. Pollack is starting to improve more. She is less dyspneic today and is able to move around some. No fever or chills. No cough Exam Alert and comfortable Heart reg Lungs with bibasilar rales I/P. 1. Acute on chronic hypoxic respiratory failure 2. Acute exac CHF 3. MARISSA - change to PO lasix 4. COPD exac 5. DM Further diagnoses and plan as above.
[2016-08-25] MEDS ORDERED: levoFLOXacin 500 MG TABLET PO SCH (09:15)
[2016-08-25] MEDS: Budesonide/Formoterol 160/4.5 MDI IH SCH ×2 (10:42→21:59)
[2016-08-25] MEDS: Nystatin POWDER 30 GM BOTTLE TP SCH ×2 (11:40→21:06)
[2016-08-25] MEDS: Insulin DETEMIR 100 UNIT/ML X5UNITS SQ SCH (21:06)
[2016-08-25] MEDS ORDERED: Levofloxacin 750 MG/150 ML 750 MG/150 ML BAG IVPB SCH (22:00)
[2016-08-26] MEDS: Ipratropium/Albuterol Neb 3 ML IH SCH ×4 (04:38→22:50)
[2016-08-26 05:07] LABS: Basophils % 0.2 %; Hematocrit 38.2 % (35.3-44.9); Hemoglobin 12.2 g/dL (11.5-15.4); Immature Granulocytes % 0.8 % (0-4); Lymphocytes # 0.9 K/mcL (0.6-4.6); Lymphocytes % 7.4 %; Mean Corpuscular HGB Conc 31.9 g/dL (31.6-35.5); Mean Corpuscular Hemoglobin 30.4 pg (28.0-33.3); Mean Corpuscular Volume 95.3 fL (83.0-100.0); Mean Platelet Volume 10.7 fL (9.4-12.4); Monocytes # 0.7 K/mcL (0.0-1.3); Monocytes % 6.2 %; Neutrophils # 9.9 K/mcL (1.6-8.9); Nucleated Red Blood Cells 0.2 /100 WBC (0); Platelet Count 187 K/mcL (140-400); Red Blood Count 4.01 M/mcL (3.82-4.97); Red Cell Distribution Width 15.7 % (11.5-14.5); Segmented Neutrophils % 85.4 %
[2016-08-26 05:17] LABS: Calcium 9.4 mg/dL (8.6-10.8); Potassium 4.7 mEq/L (3.5-4.5)
[2016-08-26] MEDS: *HR* Heparin 5,000 UNIT/ML VIAL SQ SCH ×2 (06:57→18:18)
[2016-08-26] MEDS: Vitamin B Complex/Vit C/Vit E 1 EACH TABLET PO SCH (08:52)
[2016-08-26] MEDS: predniSONE 20 MG TABLET PO SCH (08:52)
[2016-08-26] MEDS: Ascorbic Acid 500 MG TABLET PO SCH (08:52)
[2016-08-26] MEDS: Metoprolol 100 MG TABLET PO SCH ×2 (08:53→21:25)
[2016-08-26] MEDS: Aspirin 81 MG TAB.CHEW PO SCH (08:53)
[2016-08-26] MEDS: Furosemide 20 MG TABLET PO SCH ×2 (08:53→17:04)
[2016-08-26] MEDS: Insulin LISPRO 300 UNITS/3 ML VIAL SQ SCH ×4 (08:54→21:58)
[2016-08-26] MEDS: ZINC SULFATE 66 MG PO SCH (08:58)
[2016-08-26] MEDS: BIOTIN 1 MG PO SCH (08:59)
[2016-08-26] MEDS: Nystatin POWDER 30 GM BOTTLE TP SCH ×2 (08:59→21:33)
[2016-08-26] MEDS: VIT D PO SCH (08:59)
[2016-08-26] MEDS: CALCIUM PO SCH (08:59)
[2016-08-26] MEDS: Budesonide/Formoterol 160/4.5 MDI IH SCH ×2 (12:47→22:50)
--- NOTE | 2016-08-26 13:33 | Internal Med Progress Note ---
Date of Encounter: 08/26/16 Time of Encounter: 11:00 - Assessment and plan (1) Acute on chronic respiratory failure Current Visit: Yes Status: Acute Assessment and plan: Multifactorial in nature. Has CHF, COPD, probable CAMILLE. Continue aggressive pulm care today. Desaturates walking around. Hold d/c for now. Increase diuresis today. Repeat 2 view CXR today as well. Qualifiers: Respiratory failure complication: hypoxia Qualified Code(s): J96.21 - Acute and chronic respiratory failure with hypoxia (2) Acute on chronic congestive heart failure Current Visit: Yes Status: Acute Assessment and plan: Increase diuresis today and reassess tomorrow. Qualifiers: Congestive heart failure type: diastolic Qualified Code(s): I50.33 - Acute on chronic diastolic (congestive) heart failure (3) Acute exacerbation of chronic obstructive airways disease Current Visit: Yes Status: Acute Assessment and plan: Currently on PO Prednisone. Continue steroids, oxygen, aerosols and supportive care. (4) UTI (urinary tract infection) Current Visit: Yes Status: Acute Assessment and plan: On abx for coverage at this time. Qualifiers: Urinary tract infection type: acute cystitis Hematuria presence: without hematuria Qualified Code(s): N30.00 - Acute cystitis without hematuria (5) Type 2 diabetes mellitus Current Visit: Yes Status: Chronic Assessment and plan: Continue current plan for coverage and treatment. 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 (7) Hyperkalemia Current Visit: Yes Status: Acute Assessment and plan: Continue to monitor and avoid meds that worsen. Will adjust to renal diet as well. (8) CKD (chronic kidney disease) stage 3, GFR 30-59 ml/min Current Visit: Yes Status: Chronic Assessment and plan: Avoid nephrotoxins. (9) Morbid obesity with BMI of 45.0-49.9, adult Current Visit: Yes Status: Chronic Assessment and plan: Chronic - Subjective Interval history: Ms. Pollack is currently admitted for acute on chronic hypoxic respiratory failure due to COPD/CHF. She remains high risk due to continued respiratory symptoms and potential for worsening respiratory failure. Ms. Pollack feels tired but breathing is OK at this time. She is still quite dyspneic with ambulating. No CP. No GI symptoms. Overall is slowly improving but not near baseline. No fever noted. - Constitutional Vitals: Temp Pulse Resp BP Pulse Ox 97.4 F L 68 20 166/86 94 L 08/26/16 11:08 08/26/16 11:08 08/26/16 11:08 08/26/16 11:08 08/26/16 11:08 General appearance: Present: cooperative, A&O X 3, morbidly obese - Head Head exam: Present: normocephalic - Eye Eye exam: Present: conjuntiva pink - ENT ENT exam: Present: mucous membranes moist - Respiratory Respiratory exam: Present: rhonchi, wheezes - Cardiovascular Cardiovascular exam: Present: distant heart sounds, RRR. Absent: tachycardia - GI/Abdominal GI/Abdominal exam: Present: soft. Absent: tenderness - Extremities Exam Extremities exam: Present: warm - Neurological Exam Neurological exam: Present: alert, oriented X3, no focal deficits - Psychiatric Psychiatric exam: Present: normal affect, normal mood - Skin Skin exam: Present: warm. Absent: rash Internal Medicine: Result - Labs CBC & Chem 7: 08/26/16 03:57 08/26/16 03:57 Labs: Short CBC 08/26/16 Range/Units 03:57 WBC 11.5 H (4.3-11.1) K/mcL Hgb 12.2 (11.5-15.4) g/dL Hct 38.2 (35.3-44.9) % Plt Count 187 (140-400) K/mcL Neutrophils # 9.9 H (1.6-8.9) K/mcL BMP 08/26/16 03:57 Sodium 138 Potassium 4.7 H Chloride 101 Carbon Dioxide 22 BUN 52 H Creatinine 1.48 H Glucose 211 H Calcium 9.4 - ABG Interpretation ABG results: ABG ABG pH 7.40 pH Units (7.32-7.45) 08/23/16 20:20 ABG pCO2 48 mmHg (35-45) H 08/23/16 20:20 ABG pO2 80 mmHg (85-104) L 08/23/16 20:20 ABG O2 Saturation 96 % (95-98) 08/23/16 20:20 PT/INR, D-dimer PT 11.8 Seconds (9.4-12.1) 08/23/16 20:33 Consult Discharge Plan - Plan Referrals: Eduardo Hernandez Jr, MD [Primary Care Provider] - 09/13/16 3:00 pm
[2016-08-26] MEDS ORDERED: amLODIPine 5 MG TABLET PO ONE (18:02)
[2016-08-26] MEDS: Insulin DETEMIR 100 UNIT/ML X5UNITS SQ SCH (21:26)
[2016-08-27] MEDS: Ipratropium/Albuterol Neb 3 ML IH SCH ×2 (04:39→10:39)
[2016-08-27] MEDS: *HR* Heparin 5,000 UNIT/ML VIAL SQ SCH (05:18)
[2016-08-27 05:59] LABS: Hematocrit 38.1 % (35.3-44.9); Mean Corpuscular HGB Conc 31.5 g/dL (31.6-35.5); Mean Corpuscular Hemoglobin 29.9 pg (28.0-33.3); Mean Corpuscular Volume 94.8 fL (83.0-100.0); Mean Platelet Volume 10.4 fL (9.4-12.4); Platelet Count 150 K/mcL (140-400); Red Blood Count 4.02 M/mcL (3.82-4.97); Red Cell Distribution Width 15.7 % (11.5-14.5)
[2016-08-27 06:20] LABS: Albumin 2.9 g/dL (3.5-5.0); Calcium 9.1 mg/dL (8.6-10.8); Magnesium 1.9 mg/dL (1.6-2.6); Phosphorous 2.8 mg/dL (2.3-4.7); Potassium 4.4 mEq/L (3.5-4.5)
[2016-08-27 07:39] VITALS: BP 124/58
[2016-08-27] MEDS: Insulin LISPRO 300 UNITS/3 ML VIAL SQ SCH (08:13)
[2016-08-27] MEDS: Aspirin 81 MG TAB.CHEW PO SCH (08:13)
[2016-08-27] MEDS: Metoprolol 100 MG TABLET PO SCH (08:13)
[2016-08-27] MEDS: VIT D PO SCH (08:14)
[2016-08-27] MEDS: Ascorbic Acid 500 MG TABLET PO SCH (08:14)
[2016-08-27] MEDS: predniSONE 20 MG TABLET PO SCH (08:14)
[2016-08-27] MEDS: Vitamin B Complex/Vit C/Vit E 1 EACH TABLET PO SCH (08:14)
[2016-08-27] MEDS: ZINC SULFATE 66 MG PO SCH (08:14)
[2016-08-27] MEDS: BIOTIN 1 MG PO SCH (08:14)
[2016-08-27] MEDS: CALCIUM PO SCH (08:14)
[2016-08-27] MEDS: Nystatin POWDER 30 GM BOTTLE TP SCH (08:14)
[2016-08-27] MEDS: Furosemide 20 MG TABLET PO SCH (08:14)
[2016-08-27] MEDS ORDERED: levoFLOXacin 750 MG TABLET PO SCH (09:00)
[2016-08-27] MEDS ORDERED: traMADol 50 MG TABLET PO ONE (09:45)
--- NOTE | 2016-08-27 10:29 | Discharge Summary ---
Date of Encounter: 08/27/16 Time of Encounter: 10:00 - Discharge Diagnosis (1) Acute on chronic respiratory failure Priority: Primary Status: Acute Qualifiers: Respiratory failure complication: hypoxia Qualified Code(s): J96.21 - Acute and chronic respiratory failure with hypoxia (2) Acute on chronic congestive heart failure Priority: Primary Status: Acute Qualifiers: Congestive heart failure type: diastolic Qualified Code(s): I50.33 - Acute on chronic diastolic (congestive) heart failure (3) Acute exacerbation of chronic obstructive airways disease Priority: Primary Status: Acute (4) UTI (urinary tract infection) Priority: Secondary Status: Acute Qualifiers: Urinary tract infection type: acute cystitis Hematuria presence: without hematuria Qualified Code(s): N30.00 - Acute cystitis without hematuria (5) Type 2 diabetes mellitus Priority: Secondary Status: Chronic Qualifiers: Diabetes mellitus complication status: with hyperglycemia Diabetes mellitus care home insulin use: without superintendent terminal use Qualified Code(s): E11.65 - Type 2 diabetes mellitus with hyperglycemia (6) Hypertension Priority: Secondary Status: Chronic Qualifiers: Hypertension type: essential hypertension Qualified Code(s): I10 - Essential (primary) hypertension (7) Acute kidney injury Priority: Secondary Status: Acute (8) Hyperkalemia Priority: Secondary Status: Resolved (9) CKD (chronic kidney disease) stage 3, GFR 30-59 ml/min Priority: Secondary Status: Chronic (10) Morbid obesity with BMI of 45.0-49.9, adult Priority: Secondary Status: Chronic - Discharge Medications Prescriptions: Acetaminophen w/Cod 300-30 mg [Tylenol w/Codeine #3] 1 each PO TID PRN #30 tablet PRN Reason: Pain Amlodipine [Norvasc] 5 mg PO DAILY #30 tablet Budesonide/Formoterol 160/4.5 [Symbicort 160/4.5] 2 puff IH BIDR #1 inhaler GuaiFENesin ER [Mucinex] 1,200 mg PO BID #60 tbbp.12hr Ipratropium/Albuterol Neb [Duoneb] 3 ml IH QIDR PRN #100 aerosol PRN Reason: Dyspnea Levofloxacin 750 mg PO Q48H #3 tablet Metformin [Glucophage] 500 mg PO BID #60 tablet Nystatin POWDER [Nystop] 1 appl TP BID #1 bottle PredniSONE 20 mg PO DAILY #20 tablet Home Medications: Albuterol Sulfate [Albuterol Inhaler] 2 puff IH Q4H PRN 08/23/16 [History] Amitriptyline [Elavil] 10 mg PO HS 08/23/16 [History] Ascorbate Calcium [Vitamin C] 500 mg PO DAILY 08/23/16 [History] Aspirin 81 mg PO DAILY 08/23/16 [History] Biotin 1 mg PO DAILY 08/23/16 [History] Calcium Carbonate/Vitamin D3 [Calcium 600 with Vit D Chew Tb] 1 each PO DAILY [History] Ergocalciferol (VITAMIN D2) [Vitamin D] 400 unit PO DAILY 08/23/16 [History] Fish Oil/Dha/Epa [Fish Oil 1,200 mg Fish Oil] 1 each PO DAILY 08/23/16 [History] Fluticasone Propionate Nasal [Flonase] 50 mcg NS DAILY PRN 08/23/16 [History] Hydroxyzine HCl 25 mg PO HS PRN 08/23/16 [History] Lovastatin 40 mg PO QPM 08/23/16 [History] Meloxicam 15 mg PO DAILY 08/23/16 [History] Metoprolol [Lopressor] 100 mg PO BID 08/23/16 [History] Tiotropium [place] [Spiriva] 18 mcg IH DAILY 08/23/16 [History] Vitamin B Complex 1 each PO DAILY 08/23/16 [History] Zinc Sulfate [Zinc-15] 66 mg PO DAILY 08/23/16 [History] Acetaminophen w/Cod 300-30 mg [Tylenol w/Codeine #3] 1 each PO TID PRN #30 tablet 08/27/16 [Rx] Amlodipine [Norvasc] 5 mg PO DAILY #30 tablet 08/27/16 [Rx] Budesonide/Formoterol 160/4.5 [Symbicort 160/4.5] 2 puff IH BIDR #1 inhaler [Rx] Furosemide [Lasix] 20 mg PO BIDDIURETIC tablet 08/27/16 [Rx] GuaiFENesin ER [Mucinex] 1,200 mg PO BID #60 tbbp.12hr 08/27/16 [Rx] Ipratropium/Albuterol Neb [Duoneb] 3 ml IH QIDR PRN #100 aerosol 08/27/16 [Rx] Levofloxacin 750 mg PO Q48H #3 tablet 08/27/16 [Rx] Metformin [Glucophage] 500 mg PO BID #60 tablet 08/27/16 [Rx] Nystatin POWDER [Nystop] 1 appl TP BID #1 bottle 08/27/16 [Rx] PredniSONE 20 mg PO DAILY #20 tablet 08/27/16 [Rx] Allergies/Adverse Reactions: Allergies No Known Allergies Allergy (Verified 08/23/16 19:46) Date of admission: 08/25/16 12:19 Primary care physician: Eduardo Hernandez Jr, MD Discharging clinician: Darius Velazquez Anticipated date of discharge: 08/27/16 - Patient Status Disposition: Home Health Service Condition: Good Functional capacity at discharge: uses cane/walker Overall status at discharge: patient is progressing back to baseline - Discharge Instructions Follow Up With: Eduardo Hernandez Jr, MD [Primary Care Provider] - 09/13/16 3:00 pm - Diet and Activity Activity: increase activity as tolerated Diet: diabetic diet, low fat, low cholesterol, low salt diet Hospital course: Ms. Pollack is a 70 year old female with hx of CHF and HTN presented to ED with increased shortness of breath. She had increased cough and wheezing as well. She was evaluated and subsequently admitted for further evaluation and treatment. [facility]. Pollack [facility]. She was started on IV diuresis, steroids, aerosols and abx. She required higher levels of oxygen supplement but was able to titrate down to baseline level prior to discharge. She was also noted to have a UTI and was on abx. She had slow resolution of symptoms and gradually steroids were decreased and changed to PO. Her diuretic was changed to PO as well (lower dose due to MARISSA). Her kidney function did improve but Lisinopril was held throughout hospitalization (and at discharge) due to MARISSA and hyperkalemia. On 08/26 she was nearly at baseline. CXR did not show CHF or pneumonia. Mucinex was added. Her blood pressure was elevated (had been off Lisinopril) and Norvasc was started with good results. On 08/27/16 she is feeling nearly baseline. She still has a lot of upper airway secretions which is somewhat chronic. Her oxygen levels are at baseline and she is able to ambulate. She had no fever and BP was good. She was then felt medically stable for discharge home. - Time Spent with Patient Total time spent providing and/or coordinating discharge services: 46min - Constitutional Vitals: Temp Pulse Resp BP Pulse Ox 97.4 F L 78 17 124/58 88 L 08/27/16 07:35 08/27/16 07:35 08/27/16 07:35 08/27/16 07:35 08/27/16 07:35 General appearance: Present: cooperative, A&O X 3, pleasant, answers questions appropriately - Head Head exam: Present: normocephalic - Eye Eye exam: Present: conjuntiva pink - ENT ENT exam: Present: mucous membranes moist - Respiratory Respiratory exam: Present: decreased breath sounds. Absent: rhonchi, wheezes Additional comments: Upper airway/bronchial congestion noted. - Cardiovascular Cardiovascular exam: Present: RRR. Absent: tachycardia - GI/Abdominal GI/Abdominal exam: Present: soft. Absent: tenderness - Extremities Exam Extremities exam: Present: pedal edema, warm - Neurological Exam Neurological exam: Present: alert, oriented X3, no focal deficits - Psychiatric Psychiatric exam: Present: normal affect, normal mood - Skin Skin exam: Present: dry, warm. Absent: rash
[2016-08-27] MEDS: Budesonide/Formoterol 160/4.5 MDI IH SCH (10:39)
--- NOTE | 2016-08-27 10:55 | Physician Discharge Referral ---
Home Health/Hosp Referral Info Transfer to: Home Health Attending Provider: Darius Velazquez DO Provider in Charge Post Discharge: PCP - Diagnosis (1) Acute on chronic respiratory failure Status: Acute (2) Acute on chronic congestive heart failure Status: Acute (3) Acute exacerbation of chronic obstructive airways disease Status: Acute (4) UTI (urinary tract infection) Status: Acute (5) Type 2 diabetes mellitus Status: Chronic (6) Hypertension Status: Chronic (7) Acute kidney injury Status: Acute (8) Hyperkalemia Status: Resolved (9) CKD (chronic kidney disease) stage 3, GFR 30-59 ml/min Status: Chronic (10) Morbid obesity with BMI of 45.0-49.9, adult Status: Chronic - Respiratory Orders Oxygen / L per min (2 liters continuous) Smoking Cessation: Smoking cessation has been advised. For more information, call the [place] [employer] Quit Line at 5-491-BOTY-NOW. - Diet/Nutrition Diet/Nutrition Orders: Cardiac, No Concentrated Sweets - Activity Activity Orders: Up ad mariella - Services Needed Following services are medically necessary services: Nursing, Physical Therapy, Occupational Therapy - Transfer Medications Prescriptions: Acetaminophen w/Cod 300-30 mg [Tylenol w/Codeine #3] 1 each PO TID PRN #30 tablet PRN Reason: Pain Amlodipine [Norvasc] 5 mg PO DAILY #30 tablet Budesonide/Formoterol 160/4.5 [Symbicort 160/4.5] 2 puff IH BIDR #1 inhaler GuaiFENesin ER [Mucinex] 1,200 mg PO BID #60 tbbp.12hr Ipratropium/Albuterol Neb [Duoneb] 3 ml IH QIDR PRN #100 aerosol PRN Reason: Dyspnea Levofloxacin 750 mg PO Q48H #3 tablet Metformin [Glucophage] 500 mg PO BID #60 tablet Nystatin POWDER [Nystop] 1 appl TP BID #1 bottle PredniSONE 20 mg PO DAILY #20 tablet Home Medications: Albuterol Sulfate [Albuterol Inhaler] 2 puff IH Q4H PRN 08/23/16 [History] Amitriptyline [Elavil] 10 mg PO HS 08/23/16 [History] Ascorbate Calcium [Vitamin C] 500 mg PO DAILY 08/23/16 [History] Aspirin 81 mg PO DAILY 08/23/16 [History] Biotin 1 mg PO DAILY 08/23/16 [History] Calcium Carbonate/Vitamin D3 [Calcium 600 with Vit D Chew Tb] 1 each PO DAILY [History] Ergocalciferol (VITAMIN D2) [Vitamin D] 400 unit PO DAILY 08/23/16 [History] Fish Oil/Dha/Epa [Fish Oil 1,200 mg Fish Oil] 1 each PO DAILY 08/23/16 [History] Fluticasone Propionate Nasal [Flonase] 50 mcg NS DAILY PRN 08/23/16 [History] Hydroxyzine HCl 25 mg PO HS PRN 08/23/16 [History] Lovastatin 40 mg PO QPM 08/23/16 [History] Meloxicam 15 mg PO DAILY 08/23/16 [History] Metoprolol [Lopressor] 100 mg PO BID 08/23/16 [History] Tiotropium [place] [Spiriva] 18 mcg IH DAILY 08/23/16 [History] Vitamin B Complex 1 each PO DAILY 08/23/16 [History] Zinc Sulfate [Zinc-15] 66 mg PO DAILY 08/23/16 [History] Acetaminophen w/Cod 300-30 mg [Tylenol w/Codeine #3] 1 each PO TID PRN #30 tablet 08/27/16 [Rx] Amlodipine [Norvasc] 5 mg PO DAILY #30 tablet 08/27/16 [Rx] Budesonide/Formoterol 160/4.5 [Symbicort 160/4.5] 2 puff IH BIDR #1 inhaler [Rx] Furosemide [Lasix] 20 mg PO BIDDIURETIC tablet 08/27/16 [Rx] GuaiFENesin ER [Mucinex] 1,200 mg PO BID #60 tbbp.12hr 08/27/16 [Rx] Ipratropium/Albuterol Neb [Duoneb] 3 ml IH QIDR PRN #100 aerosol 08/27/16 [Rx] Levofloxacin 750 mg PO Q48H #3 tablet 08/27/16 [Rx] Metformin [Glucophage] 500 mg PO BID #60 tablet 08/27/16 [Rx] Nystatin POWDER [Nystop] 1 appl TP BID #1 bottle 08/27/16 [Rx] PredniSONE 20 mg PO DAILY #20 tablet 08/27/16 [Rx] Allergies/Adverse Reactions: Allergies No Known Allergies Allergy (Verified 08/23/16 19:46) Certification: Further, I certify that my clinical findings support that this patient is homebound (i.e. absences from home require considerable and taxing effort and are for medical reasons or rastafari services or infrequently or short duration when for other reasons) because: Homebound Reason: Patient requires assistance of a person or device to safely leave home, Leaving home requires considerable and taxing effort due to condition, Severity of cardiac or pulmonary status limits activity tolerance Attestation: My signature below is to certify that this patient is under my care and that I, or nurse practitioner, or a physician's intellectual property legal assistant working with me, has a face-to -face encounter with this patient.
[2016-08-27] MEDS ORDERED: amLODIPine 5 MG TABLET PO SCH (11:30)
== END 2016-08-27 12:48 | disposition home health service (06) | DRG 291 ==
LOC: 2NENU 19:43 → EMEROO 19:43 → 2NENU 23:07
PROVIDERS: ADMIT Family Medicine; ATTEND Internal Medicine

== ENCOUNTER 2016-09-21 18:40 | Inpatient (IN) ==
[2016-09-21] MEDS ORDERED: Ipratropium/Albuterol Neb 3 ML IH ONE ×2 (19:06→20:45)
[2016-09-21 19:38] LABS: INR 1.1; Prothrombin Time 11.8 Seconds (9.4-12.1)
[2016-09-21 19:42] LABS: Calcium 9.6 mg/dL (8.6-10.8); Potassium 4.2 mEq/L (3.5-4.5)
[2016-09-21 19:43] LABS: Activated Partial Thrombo Time 19.2 Seconds (26.0-36.0)
--- NOTE | 2016-09-21 20:00 | Emergency Department Note ---
Disposition Clinical Impression: Hypoxia Disposition: Admitted As Inpatient Condition: Good Time of Disposition: 20:50 General Adult HPI - General Chief complaint: ED Shortness of Breath/Dyspnea Stated complaint: SOB Time Seen by Provider: 09/21/16 18:45 Source: patient Mode of arrival: private vehicle Limitations: no limitations Nursing Notes Reviewed: Yes Vital Signs Reviewed: Yes - History of Present Illness HPI Narrative: Patient is brought in by daughters who found the patient with some generalized weakness midafternoon sitting on the toilet after she was urinating. She felt too weak to get up and was diaphoretic according to the family found her. Prior to that time when she had walked into the bathroom she was feeling well. She felt well last night. At baseline she has diabetes and emphysema and is on 2-3 L of home oxygen. No fever no pain no vomiting or diarrhea. Symptoms were moderate they have since resolved. Mild cough recently Onset (ago): hour(s) Location: chest Radiation: non-radiation Pain Severity: mild Pain Scale: 0 Quality: aching Consistency: intermittent Improves with: nothing Worsens with: nothing Associated symptoms: Reports: cough, diaphoresis, malaise. Denies: confusion, chest pain, nausea/vomiting - Related Data Home Medications Medication Instructions Recorded Confirmed Albuterol Sulfate [Albuterol 2 puff IH Q4H PRN 08/23/16 09/21/16 Inhaler] Amitriptyline [Elavil] 10 mg PO HS 08/23/16 09/21/16 Ascorbate Calcium [Vitamin C] 500 mg PO DAILY 08/23/16 09/21/16 Aspirin 81 mg PO DAILY 08/23/16 09/21/16 Biotin 1 mg PO DAILY 08/23/16 09/21/16 Calcium Carbonate/Vitamin D3 1 each PO DAILY 08/23/16 09/21/16 [Calcium 600 with Vit D Chew Tb] Ergocalciferol (VITAMIN D2) 400 unit PO DAILY 08/23/16 09/21/16 [Vitamin D] Fish Oil/Dha/Epa [Fish Oil 1,200 1 each PO DAILY 08/23/16 09/21/16 mg Fish Oil] Fluticasone Propionate Nasal 50 mcg NS DAILY PRN 08/23/16 09/21/16 [Flonase] Hydroxyzine HCl 25 mg PO HS PRN 08/23/16 09/21/16 Lovastatin 40 mg PO QPM 08/23/16 09/21/16 Metoprolol [Lopressor] 100 mg PO BID 08/23/16 09/21/16 Tiotropium [place] [Spiriva] 18 mcg IH DAILY 08/23/16 09/21/16 Vitamin B Complex 1 each PO DAILY 08/23/16 09/21/16 Amlodipine [Norvasc] 10 mg PO DAILY 09/21/16 09/21/16 Oxygen 2 l NS CONT 09/21/16 09/21/16 Previous Rx's Medication Instructions Recorded Acetaminophen w/Cod 300-30 mg 1 each PO TID PRN #30 tablet 08/27/16 [Tylenol w/Codeine #3] Budesonide/Formoterol 160/4.5 2 puff IH BIDR #1 inhaler 08/27/16 [Symbicort 160/4.5] Furosemide [Lasix] 20 mg PO BIDDIURETIC tablet 08/27/16 Ipratropium/Albuterol Neb [Duoneb] 3 ml IH QIDR PRN #100 aerosol 08/27/16 Metformin [Glucophage] 500 mg PO BID #60 tablet 08/27/16 Nystatin POWDER [Nystop] 1 appl TP BID #1 bottle 08/27/16 Allergies Allergy/AdvReac Type Severity Reaction Status Date / Time No Known Allergies Allergy Verified 08/23/16 19:46 Constitutional: Reports: weakness Eyes: Denies: eye pain, eye discharge, vision change ENT ED: Denies: ear pain, throat pain, dental pain, hearing loss, epistaxis, congestion, dysphagia Cardiovascular: Reports: dyspnea on exertion. Denies: chest pain, palpitations , orthopnea, syncope Respiratory: Reports: cough, dyspnea. Denies: wheezes Gastrointestinal: Denies: abdominal pain, nausea, vomiting, diarrhea, constipation, hematemesis, melena, hematochezia Genitourinary: Denies: dysuria, frequency, hematuria, discharge Musculoskeletal: Denies: back pain, neck pain, arthralgia, myalgia Integumentary: Denies: rash, abrasion, lesions Neurological: Denies: headache, weakness Psychiatric: Denies: anxiety, depression Endocrine: Denies: fatigue Hematological/Lymphatic: Denies: easy bleeding, easy bruising Allergic/Immunologic: Denies: facial swelling, urticaria Past Medical History - Past Medical History Medical history: Reports: CHF, COPD, DVT, diabetes, hyperlipidemia, hypertension Surgical history: Reports: appendectomy, Psychiatric history: Reports: anxiety, depression - Social History Smoking Status: Former smoker Smokeless Tobacco Status: No Alcohol use: Reports: none Drug use: Reports: none Physical Exam - General Limitations: no limitations General appearance: alert - Head Head exam: atraumatic, normocephalic, normal inspection - Eye Eye exam: Present: normal appearance, PERRL, EOMI - Expanded Eye Exam Pupils: Left: reactive - ENT ENT exam: normal exam, normal oropharynx, mucous membranes moist - Expanded ENT Exam External ear exam: Present: normal external inspection Mouth exam: Present: normal external inspection Teeth exam: Present: normal inspection Throat exam: Present: normal inspection - Neck Neck exam: Present: normal inspection, full ROM, trachea midline - Chest Chest inspection: Present: normal inspection, symmetric chest wall rise - Respiratory Respiratory exam: Present: wheezes. Absent: respiratory distress - Cardiovascular Cardiovascular exam: Present: regular rate, normal rhythm, normal heart sounds - Abdominal Exam Abdominal exam: Present: soft, Non-Tender. Absent: tenderness, distention, guarding, rebound, rigidity - Extremities Exam Extremities exam: Present: normal inspection, full ROM. Absent: tenderness, pedal edema - Expanded Upper Extremity Exam Shoulder exam: Present: normal inspection, full ROM Arm exam: Present: normal inspection, full ROM Elbow exam: Present: normal inspection, full ROM Forearm/Wrist exam: Present: normal inspection, full ROM Hand exam: Present: normal inspection, full ROM Vascular exam: Normal: capillary refill, radial pulse - Expanded Lower Extremity Exam Hip/Pelvis exam: Present: normal inspection, full ROM Upper leg exam: Present: normal inspection, full ROM Knee exam: Present: normal inspection, full ROM Lower leg exam: Present: swelling. Absent: tenderness, Homans' sign Ankle exam: Present: normal inspection, full ROM Foot/toe exam: Present: normal inspection, full ROM Neurovascular/Tendon exam: Absent: motor deficit, sensory deficit, tendon deficit - Back Exam Back exam: Present: normal inspection, full ROM. Absent: tenderness - Neurological Exam Neurological exam: Present: alert, oriented X3 - Expanded Neurological Exam Patient oriented to: Present: person, place, time Coma Scale Eye Opening: Spontaneous Coma Scale Motor Response: Obeys Commands Coma Scale Verbal Response: Oriented Coma Scale Total: 15 - Psychiatric Psychiatric exam: Present: normal affect, normal mood - Skin Skin exam: Present: warm, dry, intact, normal color Course Course Narrative: Accepted to hospitalist Dr Ngo @ 8:35 pm, improved; bp treated; condition stable Vital Signs Temperature 99.8 F H 09/21/16 18:42 Pulse Rate 114 09/21/16 18:42 Respiratory Rate 16 09/21/16 18:42 Blood Pressure 186/97 09/21/16 18:42 O2 Sat by Pulse Oximetry 87 L 09/21/16 18:42 Temperature 99.8 F H 09/21/16 18:42 Pulse Rate 115 09/21/16 20:28 Respiratory Rate 20 09/21/16 20:42 Blood Pressure 185/97 09/21/16 20:42 O2 Sat by Pulse Oximetry 92 L 09/21/16 20:28 Oxygen Delivery Oxygen Delivery Aerosol Mask Medical Decision Making - Lab Data Result diagrams: 09/21/16 19:23 Lab Results 09/21/16 09/21/16 09/21/16 Range/Units 19:23 19:23 19:23 PT 11.8 (9.4-12.1) Seconds INR 1.1 APTT 19.2 L (26.0-36.0) Seconds Sodium 137 (136-145) mEq/L Potassium 4.2 (3.5-4.5) mEq/L Chloride 97 L (98-109) mEq/L Carbon Dioxide 26 (19-29) mEq/L BUN 25 H (7-20) mg/dL Creatinine 1.25 H (0.57-1.11) mg/dL Est GFR ( Amer) 51 L (> 60) Est GFR (Non-Af Amer) 42 L (> 60) BUN/Creatinine Ratio 20 (6-26) Glucose 162 H (70-99) mg/dL Calculated Osmolality 292 (280-300) Calcium 9.6 (8.6-10.8) mg/dL Troponin I 0.04 H* (0-0.03) ng/mL B-Natriuretic Peptide (0-100) pg/mL Specimen Rejected 09/21/16 09/21/16 Range/Units 19:23 19:23 PT (9.4-12.1) Seconds INR APTT (26.0-36.0) Seconds Sodium (136-145) mEq/L Potassium (3.5-4.5) mEq/L Chloride (98-109) mEq/L Carbon Dioxide (19-29) mEq/L BUN (7-20) mg/dL Creatinine (0.57-1.11) mg/dL Est GFR ( Amer) (> 60) Est GFR (Non-Af Amer) (> 60) BUN/Creatinine Ratio (6-26) Glucose (70-99) mg/dL Calculated Osmolality (280-300) Calcium (8.6-10.8) mg/dL Troponin I (0-0.03) ng/mL B-Natriuretic Peptide 156 H (0-100) pg/mL Specimen Rejected Clotted - EKG Data EKG #1 EKG attestation: Yes I reviewed and interpreted this EKG. EKG results narrative: Mild sinus tachycardia. Intermittent premature atrial beats. No acute injury pattern noted. Critical Care Time Critical Care Time: Yes Total Critical Care Time: 33 Attestation: Hypoxia
[2016-09-21] MEDS ORDERED: Ipratropium/Albuterol Neb 3 ML ONE (20:39)
[2016-09-21] MEDS ORDERED: methylPREDNISolone 125 MG/2 ML VIAL IVP ONE (20:40)
[2016-09-21] MEDS ORDERED: *HR* Labetalol 20 MG/4 ML SYRINGE IVP ONE (20:40)
[2016-09-21 20:50] LABS: Basophils % 0.2 %; Eosinophils % 0.2 %; Hematocrit 37.1 % (35.3-44.9); Hemoglobin 12.2 g/dL (11.5-15.4); Immature Granulocytes % 0.3 % (0-4); Lymphocytes # 0.3 K/mcL (0.6-4.6); Lymphocytes % 5.6 %; Mean Corpuscular HGB Conc 32.9 g/dL (31.6-35.5); Mean Corpuscular Volume 91.4 fL (83.0-100.0); Monocytes # 0.7 K/mcL (0.0-1.3); Monocytes % 12.4 %; Neutrophils # 4.7 K/mcL (1.6-8.9); Platelet Count 117 K/mcL (140-400); Red Blood Count 4.06 M/mcL (3.82-4.97); Red Cell Distribution Width 14.8 % (11.5-14.5); Segmented Neutrophils % 81.3 %
[2016-09-21] MEDS ORDERED: *HR* OxyCODONE Immed Rel 5 MG TABLET PO PRN (22:36)
[2016-09-21] MEDS ORDERED: Naloxone 0.4 MG/ML INJ IVP PRN (22:36)
[2016-09-21] MEDS ORDERED: Ondansetron ODT 4 MG TAB.RAPDIS SL PRN (22:36)
--- NOTE | 2016-09-21 22:52 | Internal Med History&Physical ---
<Nita Gilbert - Last Filed: 09/22/16 04:04> Date of Encounter: 09/22/16 Time of Encounter: 22:40 Assessment and Plan (1) Acute on chronic respiratory failure Current visit: No Status: Acute Patient presents with acute increase in oxygen requirement. Patient has COPD and requires 2L supplemental oxygen at home baseline. Currently she is requiring 15L via venti mask to maintain oxygenation saturation around 90%. CXR showed bibasilar airspace disease, hyperinflation and interstitial lung disease. Differential diagnosed for the acute worsening of respiratory failure includes PE and pulmonary edema. Patient has a history of PE, is tachycardic and tachypneic with acute increase in oxygen requirement. Will get a D-dimer to start. Patient has history of CHF and does take lasix at home. She has 2+ pedal edema and pulmonary edema is likely contributing even if she does have another cause. Will give a dose of lasix now. Will obtain and ABG to evaluated for hypercarbia and need for BiPAP. Will continue with supplemental oxygenation and supportive care. 1. ABG now 2. D-Dimer now 3. Duonebs every 4 hours 4. 20mg IV lasix now. Will continue home dose of lasix inthe morning 5. Continuous oxygen saturation and supplemental oxygen as needed. Qualifiers: Respiratory failure complication: hypoxia Qualified Code(s): J96.21 - Acute and chronic respiratory failure with hypoxia (2) Elevated troponin Current visit: Yes Status: Acute Patient with elevated troponin at 0.04 (0.01). This could be secondary to a cardiac cause or demand ischemia secondary to a PE or pulmonary edema as well. EKG does not show any acute ischemic changes. Will trend out troponins. 1. Troponis Q6H for total of 3. (3) Congestive heart failure Current visit: No Status: Acute Patient with history of CHF. ECHO from 1 month ago shows EF 55% with mild left diastolic dysfunciton. Concern for volume overload at this time. Will give IV diuretic dose now. Will continue home does diuretics as well as beta marjan. 1. IV lasix dose now 2. Continue home dose lasix in the morning. Qualifiers: Congestive heart failure type: diastolic Congestive heart failure chronicity: unspecified congestive heart failure chronicity Qualified Code(s) : I50.30 - Unspecified diastolic (congestive) heart failure (4) CKD (chronic kidney disease) stage 3, GFR 30-59 ml/min Current visit: No Status: Chronic Patient with CKD, GFR of 42. No acute kidney injury at this time. Will stop Metformin due to it's kidney toxicity and avoid any other nephrotoxic drugs. 1. Stop Metformin 2. Continue to monitor kidney function (5) Hypertension Current visit: No Status: Chronic Pateint with hypertension. Elevated on admission, now improved. Will continue home medications for hypertension. 1. Continue home dose of Lopressor and Norvasc. 2. Monitor blood pressure Qualifiers: Hypertension type: essential hypertension Qualified Code(s): I10 - Essential (primary) hypertension (6) Type 2 diabetes mellitus Current visit: No Status: Chronic Patient with type 2 diabetes. Will stop metformin due to nephrotoxicity and start patient on low intensity sliding scale insulin. 1. Stop metformin 2. Monitor blood glucose 3. Low intensity sliding scale insulin. Qualifiers: Diabetes mellitus complication status: with hyperglycemia Diabetes mellitus correction insulin use: without correction use Qualified Code(s): E11.65 - Type 2 diabetes mellitus with hyperglycemia (7) Morbid obesity with BMI of 45.0-49.9, adult Current visit: No Status: Chronic (8) DVT prophylaxis Current visit: No Status: Acute SCD and heparin 5,000 Q8H for DVT propylaxis. Internal Medicine - H&P: HPI Chief complaint: Shortness of breath, near-syncope Admitted From: Emergency Dept Plans for Post Hospital Care: Home History of present illness: Ms. Pollack is a 70 year old female with PMH including T2Dm, COPD, CHF, prior PE , HLD, HTN, anxiety and CKD who is brought to the ED by EMS after a near- syncopal event. Patient daughter reports that earlier today patient was sitting in the chair and her oxygen saturation was low so she increased her oxygen from 2L to 3.5L before leaving. While she was gone patient attempted to go to the restroom. Daughter found patient on the toilet profusely sweating and short of breath. At that time, daughter reports that her mother was able to talk to her and was oriented x3. She proceeded to call 911. Patient reports that she was feeling fine sitting in the chair but was having increased back and knee pain. She tried to get to the restroom but she says that she was having a hard time because of how much pain she was in. She reports that she remembers the entire event. At that time she denies CURRAN, lightheadedness/ dizziness, chest pain/pressure, nausea/vomiting. Daughter is very concerned because she states that patient was unable to move while sitting on the toilet - patient reports this was due to pain. Patient and family reports that patient have been doing better over the last few weeks since her last hospital stay and she exercise tolerance has increased - she is not able to walk with just a cane for a much longer distance. Patient denies any recent illness or upper respiratory infection. She states she feels bloated and constipated but denies any nausea/vomiting/diarrhea or urinary symptoms. At this moment her only complaint is that she is hungry because she hasn't eaten all day and she is short of breath. In the ED, patient was afebrile found to be tachycardic up to 115bpm. RR range 16-20 and patient came it at 87% oxygenation saturation on 4L supplemental oxygen. Blood pressure on arrival elevated but improved after 10mg IV labetalol. Labs showed a normal WBC and Hgb. Creatinine a 1.25, same as previous stay. GFR of 42. Troponin 0.04 elevated form 00.1 on previous admission. BNP 156. CXR today showed bibasilar airspace disease - right worse than left, hyperinflation and interstitial lung disease. Patient given duonebs x3 and solumedrol. On exam, patient continues to be tachycardic around 102 and requiring 15L supplemental oxygen via venti mask to maintain O2 saturation around 90%. Pupils equal and reactive. EOMI - no nystagmus. Lungs with fine wheezing and crackles in bases, overall a little diminished. Abdomen distended but soft, non -tender. No LE pain or erythema. BL 2+ pitting edema. Past Med Surg Social Fam HX - Past Medical History Medical history: CHF, COPD, DVT, diabetes, hyperlipidemia, hypertension Psychiatric history: anxiety, depression - Past Surgical History Surgical History: appendectomy, - Social History Smoking Status: Former smoker Smokeless Tobacco Status: No Alcohol use: none Drug use: none - Family History Mother Living Status: Hx Family Cardiac Disorders: Yes Father Living Status: Hx Family Cancer: Yes Internal Medicine - H&P: Meds Albuterol Sulfate [Albuterol Inhaler] 2 puff IH Q4H PRN 08/23/16 [History] Amitriptyline [Elavil] 10 mg PO HS 08/23/16 [History] Ascorbate Calcium [Vitamin C] 500 mg PO DAILY 08/23/16 [History] Aspirin 81 mg PO DAILY 08/23/16 [History] Biotin 1 mg PO DAILY 08/23/16 [History] Calcium Carbonate/Vitamin D3 [Calcium 600 with Vit D Chew Tb] 1 each PO DAILY [History] Ergocalciferol (VITAMIN D2) [Vitamin D] 400 unit PO DAILY 08/23/16 [History] Fish Oil/Dha/Epa [Fish Oil 1,200 mg Fish Oil] 1 each PO DAILY 08/23/16 [History] Fluticasone Propionate Nasal [Flonase] 50 mcg NS DAILY PRN 08/23/16 [History] Hydroxyzine HCl 25 mg PO HS PRN 08/23/16 [History] Lovastatin 40 mg PO QPM 08/23/16 [History] Metoprolol [Lopressor] 100 mg PO BID 08/23/16 [History] Tiotropium [place] [Spiriva] 18 mcg IH DAILY 08/23/16 [History] Vitamin B Complex 1 each PO DAILY 08/23/16 [History] Acetaminophen w/Cod 300-30 mg [Tylenol w/Codeine #3] 1 each PO TID PRN #30 tablet 08/27/16 [Rx] Budesonide/Formoterol 160/4.5 [Symbicort 160/4.5] 2 puff IH BIDR #1 inhaler [Rx] Furosemide [Lasix] 20 mg PO BIDDIURETIC tablet 08/27/16 [Rx] Ipratropium/Albuterol Neb [Duoneb] 3 ml IH QIDR PRN #100 aerosol 08/27/16 [Rx] Metformin [Glucophage] 500 mg PO BID #60 tablet 08/27/16 [Rx] Nystatin POWDER [Nystop] 1 appl TP BID #1 bottle 08/27/16 [Rx] Amlodipine [Norvasc] 10 mg PO DAILY 09/21/16 [History] Oxygen 2 l NS CONT 09/21/16 [History] Allergies No Known Allergies Allergy (Verified 08/23/16 19:46) All Systems PM: A 10-system review of systems was performed and is negative for pertinent findings except as documented above in the HPI. - Constitutional Constitutional: excessive sweating, no chills, no fatigue, no fever(s), no weakness - EENT Eyes: no change in vision Nose, mouth and throat: no nasal congestion, no nasal discharge, no sore throat - Cardiovascular Cardiovascular ROS IM: diaphoresis, dyspnea, dyspnea on exertion, edema, no chest pain, no irregular heart rhythm, no lightheadedness, no palpitations, no syncope - Respiratory Respiratory: cough, dyspnea, dyspnea on exertion, wheezing, no hemoptysis, no pain on inspiration, no chest congestion, no excessive phlegm production, no pain with cough - Gastrointestinal Gastrointestinal: bloating, constipation, no abdominal pain, no diarrhea, no hematemesis, no hematochezia, no melena, no nausea, no vomiting - Genitourinary Genitourinary: no change in urinary stream, no dysuria - Musculoskeletal Musculoskeletal ROS IM: back pain, other (knee pain BL) - Neurological Neurological ROS: no dizziness - Constitutional Vitals: Temp Pulse Resp BP Pulse Ox 98.5 F 102 20 134/66 91 L 09/21/16 21:42 09/21/16 21:42 09/21/16 21:42 09/21/16 21:42 09/21/16 21:42 General appearance: Present: A&O X 3, pleasant, no acute distress, answers questions appropriately - Head Head exam: Present: atraumatic, normal inspection - Eye Eye exam: Present: EOMI, normal appearance, PERRL. Absent: nystagmus - ENT ENT exam: Present: mucous membranes moist, normal exam - Respiratory Respiratory exam: Present: decreased breath sounds, tachypnea Additional comments: crackles and fine wheezing - Cardiovascular Cardiovascular exam: Present: tachycardia. Absent: irregular rhythm - GI/Abdominal GI/Abdominal exam: Present: distended, normal bowel sounds, soft. Absent: guarding, rebound, rigid, tenderness - Extremities Exam Extremities exam: Present: pedal edema, warm - Neurological Exam Neurological exam: Present: alert, CN II-XII intact, oriented X3 Internal Med - H&P Results - Labs CBC & Chem 7: 09/22/16 00:47 09/22/16 00:47 Labs: Short CBC 09/21/16 Range/Units 20:33 WBC 5.7 (4.3-11.1) K/mcL Hgb 12.2 (11.5-15.4) g/dL Hct 37.1 (35.3-44.9) % Plt Count 117 L (140-400) K/mcL Neutrophils # 4.7 (1.6-8.9) K/mcL <Barbvictor hugoBrentazucenavincenzo R - Last Filed: 09/22/16 07:50> Date of Encounter: 09/21/16 Internal Medicine - H&P: HPI History of present illness: Ms. Pollack is a 70 year old female All Systems PM: A 10-system review of systems was performed and is negative for pertinent findings except as documented above in the HPI. - Constitutional Vitals: Temp Pulse Resp BP Pulse Ox 97.5 F L 88 18 138/70 92 L 09/22/16 07:43 09/22/16 07:43 09/22/16 07:43 09/22/16 07:43 09/22/16 07:43 Internal Med - H&P Results - Labs CBC & Chem 7: 09/22/16 00:47 09/22/16 00:47 Labs: Short CBC 09/22/16 Range/Units 00:47 WBC 4.4 (4.3-11.1) K/mcL Hgb 11.4 L (11.5-15.4) g/dL Hct 35.0 L (35.3-44.9) % Plt Count 107 L (140-400) K/mcL Neutrophils # 4.0 (1.6-8.9) K/mcL BMP 09/22/16 00:47 Sodium 135 L Potassium 3.8 Chloride 97 L Carbon Dioxide 26 BUN 27 H Creatinine 1.28 H Glucose 299 H Calcium 9.0 Cardiac Enzymes 09/22/16 09/22/16 Range/Units 00:47 06:29 Troponin I 0.05 H* 0.04 H* (0-0.03) ng/mL - ABG Interpretation ABG results: 09/22/16 00:39 ABG pH 7.41 ABG pCO2 48 H ABG pO2 57 L ABG HCO3 30.4 H ABG Total CO2 31.9 H ABG O2 Saturation 90 L ABG Base Excess 4.7 H - Attending Attestation I performed a history and physical examination of the patient and discussed his management with the Resident/Science Liaison (Dr Gilbert). I reviewed the residents note and agree with the documented findings and plan of care, with additions as below. 70 Y/F history of COPD, CHF, CKD, chronic respiratory failure - on home oxygen 2LPM. Patient was brought in with history of near-syncopal event, sweating, increased work of breathing, hypoxia. She is now requiring 15 L/min Oxygen to keep her saturations at above 90%. She denies significant cough or expectoration. O/E: Dimished breath sounds. Cardiac: RRR ABG shows: pH: 7.41; PO2: 57; PCO2: 48. eGFR: 41. CXR: Reported bilateral basilar airspace disease greater on the right, which is less pronounced than the prior study. Hyperinflation and suspected interstitial lung disease. A/P: Acute on chronic respiratory failure: Pt seems to have interstitial edema on CXR we gave her a dose of IV Lasix, without significant clinical improvement. Her D-Dimer is elevated. In view of low eGFR, and with the risk of contrast induced nephropathy, we did not request CTA chest. Emperically started on heparin infusion and plan for VQ scan. Pulmonary consultation. Elevated D-dimer: need to exclude pulmonary embolism. CTA chest not done, due to low eGFR. On heparin infusion. Mild elevation of troponin: trend troponins
[2016-09-21] MEDS ORDERED: Ipratropium/Albuterol Neb 3 ML IH PRN (23:06)
[2016-09-21] MEDS ORDERED: Furosemide 20 MG/2 ML VIAL IVP ONE (23:06)
[2016-09-21] MEDS ORDERED: D5% in Water 1,000 ML IV PRN (23:07)
[2016-09-21] MEDS ORDERED: *HR* Dextrose 50 % in Water (Syg) 50 ML SYRINGE IVP PRN (23:07)
[2016-09-21] MEDS ORDERED: Dextrose Gel 15 GM PO PRN ×2 (23:07)
[2016-09-21] MEDS ORDERED: hydrOXYzine pamoate 25 MG CAPSULE PO PRN (23:08)
[2016-09-21] MEDS ORDERED: *HR* Acetaminophen w/Cod 300-30 mg 1 TAB TABLET PO PRN (23:08)
[2016-09-21] MEDS ORDERED: Fluticasone Propionate Nasal 50 MCG/SPRAY BOTTLE NS PRN (23:08)
[2016-09-22] MEDS ORDERED: *HR* Heparin 5,000 UNIT/ML VIAL IVP PRN ×2 (00:36)
[2016-09-22] MEDS ORDERED: *HR* Heparin 5,000 UNIT/ML VIAL IVP ONE (00:36)
[2016-09-22] MEDS ORDERED: Heparin 25,000 UNIT/500 ML D5W 25,000 UNIT/500 ML MLS IVC SCH (00:45)
[2016-09-22 01:00] LABS: Basophils % 0.2 %; Hemoglobin 11.4 g/dL (11.5-15.4); Immature Granulocytes % 0.7 % (0-4); Immature Platelets 4.6 % (1.1-6.1); Lymphocytes # 0.2 K/mcL (0.6-4.6); Lymphocytes % 4.3 %; Mean Corpuscular HGB Conc 32.6 g/dL (31.6-35.5); Mean Corpuscular Hemoglobin 29.9 pg (28.0-33.3); Mean Corpuscular Volume 91.9 fL (83.0-100.0); Mean Platelet Volume 10.9 fL (9.4-12.4); Monocytes # 0.2 K/mcL (0.0-1.3); Monocytes % 3.4 %; Platelet Count 107 K/mcL (140-400); Red Blood Count 3.81 M/mcL (3.82-4.97); Red Cell Distribution Width 14.9 % (11.5-14.5); Segmented Neutrophils % 91.4 %
[2016-09-22 01:06] LABS: INR 1.1; Prothrombin Time 12.1 Seconds (9.4-12.1)
[2016-09-22 01:08] LABS: Activated Partial Thrombo Time 26.5 Seconds (26.0-36.0)
[2016-09-22 01:11] LABS: Magnesium 1.3 mg/dL (1.6-2.6); Phosphorous 3.4 mg/dL (2.3-4.7); Potassium 3.8 mEq/L (3.5-4.5)
[2016-09-22 01:16] LABS: ABG Base Excess 4.7 mEq/L (-2.0 to 3.0); ABG HCO3 30.4 mEQ/L (21-27); ABG Oxygen Saturation 90 % (95-98); ABG PCO2 48 mmHg (35-45); ABG PH 7.41 pH Units (7.32-7.45); ABG PO2 57 mmHg (85-104); ABG TCO2 31.9 mEq/L (20-26)
[2016-09-22 01:55] LABS: Platelet Estimate Slight Decrease (Normal)
[2016-09-22] MEDS ORDERED: *HR* Heparin 5,000 UNIT/ML VIAL ONE (02:08)
[2016-09-22] MEDS ORDERED: Furosemide 20 MG/2 ML VIAL IVP SCH ×2 (06:16→09:00)
[2016-09-22] MEDS: Cholecalciferol (D-3) 1,000 UNIT TABLET PO SCH (07:57)
[2016-09-22] MEDS: Ascorbic Acid 500 MG TABLET PO SCH (07:57)
[2016-09-22] MEDS: Metoprolol 100 MG TABLET PO SCH ×2 (07:57→22:16)
[2016-09-22] MEDS: Vitamin B Complex/Vit C/Vit E 1 EACH TABLET PO SCH (07:57)
[2016-09-22] MEDS: Insulin LISPRO 300 UNITS/3 ML VIAL SQ SCH ×4 (07:58→22:18)
[2016-09-22] MEDS: amLODIPine 5 MG TABLET PO SCH (07:58)
[2016-09-22] MEDS ORDERED: Furosemide 20 MG TABLET PO SCH (08:00)
[2016-09-22] MEDS: Nystatin POWDER 30 GM BOTTLE TP SCH ×2 (08:12→22:16)
[2016-09-22] MEDS ORDERED: Insulin DETEMIR 100 UNIT/ML X5UNITS SQ STA (08:14)
[2016-09-22 08:59] LABS: Activated Partial Thrombo Time 191.1 Seconds (26.0-36.0)
[2016-09-22] MEDS ORDERED: Tiotropium 18 MCG inhalation IH SCH (09:00)
[2016-09-22] MEDS ORDERED: Patient Taking Own Medication 1 EACH PO SCH (09:00)
[2016-09-22] MEDS ORDERED: Aspirin 81 MG TAB.CHEW PO SCH (09:00)
[2016-09-22 09:11] LABS: Heparin anti-factor XA UFH 1.45 IU/mL (0.30-0.70)
[2016-09-22] MEDS ORDERED: Budesonide/Formoterol 160/4.5 MDI IH SCH (10:00)
[2016-09-22] MEDS ORDERED: Insulin LISPRO 300 UNITS/3 ML VIAL SQ ONE (10:29)
[2016-09-22] MEDS ORDERED: Magnesium Sulfate 2 GM in D5% in Water 100 ML IVPB STA (10:33)
--- NOTE | 2016-09-22 10:36 | Pulmonology Consult Note ---
Date of Encounter: 09/22/16 Time of Encounter: 10:32 Assessment and Plan (1) Acute and chronic respiratory failure Current Visit: No Status: Acute Acute on chronic respiratory failure with hypoxia and hypercapnia in this individual is due to underlying advanced chronic obstructive pulmonary disease, obesity hypoventilation syndrome (suboptimally treated given lack of volitional use of nocturnal noninvasive vent support), obstructive sleep apnea (likely advanced, former cigarette smoker) and chronic heart dysfunction (diastolic heart dysfunction, pulmonary hypertension, cor pulmonale). Current concern is also for superimposed acute or recurrent venous thromboembolic disease. Thromboembolic disease cannot be currently excluded or included by CT imaging of the chest (CT scan of the chest not obtained due to renal insufficiency) and I note Doppler studies of the lower extremities have been ordered. Irrespectively, I agree with current use of anticoagulation and more than likely this patient will require long-term anticoagulation therapy given pulmonary hypertension, cor pulmonale and risks of recurrent venous thromboembolic disease. The current chest imaging study does suggest aside from I per inflation of the chest and cardiomegaly, small bilateral opacities possibly due to pleural effusions. Think that the patient has either radiographic or clinical suggestion of proposed respiratory infection. I reviewed the situation with the 2 daughters. I did tell tem that it is probably going to be unlikely that venous thromboembolic disease can be proven with a high degree of certainty (unless of course the like studies reveal DVT). Obviously, there is always a risk of bleeding with long-term anticoagulation but in this individual given her very tenuous cardiopulmonary status and very limited physiological reserve, untreated thromboembolic disease would likely prove fatal. Given the current medical situation and the evaluation as I have outlined, it is my opinion that the benefits of long-term anticoagulation outweigh the risks. In the meantime, continue bronchodilator therapy for treatment of COPD and provide supplemental oxygen as necessary to maintain saturation values 88-90% if possible. Qualifiers: Respiratory failure complication: hypoxia and hypercapnia Qualified Code(s) : J96.21 - Acute and chronic respiratory failure with hypoxia; J96.22 - Acute and chronic respiratory failure with hypercapnia History of Present Illness Consult date: 09/22/16 Chief complaint: Dyspnea History of present illness: The patient is a morbidly obese female who apparently developed progressive breathlessness and hypoxia in the home setting. The patient's daughter that her mother was breathlessness diaphoretic when she attempted to perform ambulatory activities and furthermore iron escalating levels of supplemental nasal cannula oxygen. Fevers chills cough sputum production were not noted. Given the circumstances, the patient was transported to the emergency room for evaluation. Hypoxia was verified via pulse oximetry and hence high flow supplemental oxygen was provided. Furthermore, given concern for possible pulmonary embolism as a potential explanation for progressive hypoxia, the patient was placed on intravenous heparin therapy. CT scan of the chest could not be performed in light of patient's renal dysfunction. This morning, the patient claims that she has noted improvement of her respiratory status although still requires supplemental oxygen. From a respiratory perspective, the patient has advanced COPD (former smoker stopped approximately 3-4 years ago) documented obesity hypoventilation syndrome (baseline PCO2 approximately 50 mmHg), sleep apnea. The patient did undergo an outpatient evaluation for hypoventilation and sleep apnea 4 years ago and was provided a BiPAP device but apparently was intolerant of use of the same. The patient has a multitude of comorbidities as outlined in the admission H and P. Among those comorbidities include deep vein thrombosis and possible pulmonary embolism. Past Med Surg Social Fam HX - Past Medical History Medical history: CHF, COPD, DVT, diabetes, hyperlipidemia, hypertension Psychiatric history: anxiety, depression - Past Surgical History Surgical History: appendectomy, - Social History Smoking Status: Former smoker Smokeless Tobacco Status: No Alcohol use: none Drug use: none - Family History Mother Name: Miko Rosenthal Family Member Ethnicity: Non- Living Status: Age at : 72 Cause of : lung cancer Hx Family Cardiac Disorders: Yes Hx Family Respiratory Disorders: Yes Hx Family Cancer: Yes Hx Family GI Disorders: No Hx Family Genitourinary Disorders: No Hx Family Endocrine Disorder: No Hx Family Musculoskeletal Disorders: No Hx Family Neuromuscular Disorders: No Hx Family Neurologic Disorders: No Hx Family HEENT Disorders: No Hx Family Autoimmune Disorders: No Hx Family Reproductive Disorders: No Hx Family Psychosocial Disorders: No Hx Family Medical Disorders: No Father Living Status: Hx Family Cancer: Yes Medications and Allergies Albuterol Sulfate [Albuterol Inhaler] 2 puff IH Q4H PRN 08/23/16 [History] Amitriptyline [Elavil] 10 mg PO HS 08/23/16 [History] Ascorbate Calcium [Vitamin C] 500 mg PO DAILY 08/23/16 [History] Aspirin 81 mg PO DAILY 08/23/16 [History] Biotin 1 mg PO DAILY 08/23/16 [History] Calcium Carbonate/Vitamin D3 [Calcium 600 with Vit D Chew Tb] 1 each PO DAILY [History] Ergocalciferol (VITAMIN D2) [Vitamin D] 400 unit PO DAILY 08/23/16 [History] Fish Oil/Dha/Epa [Fish Oil 1,200 mg Fish Oil] 1 each PO DAILY 08/23/16 [History] Fluticasone Propionate Nasal [Flonase] 50 mcg NS DAILY PRN 08/23/16 [History] Hydroxyzine HCl 25 mg PO HS PRN 08/23/16 [History] Lovastatin 40 mg PO QPM 08/23/16 [History] Metoprolol [Lopressor] 100 mg PO BID 08/23/16 [History] Tiotropium [place] [Spiriva] 18 mcg IH DAILY 08/23/16 [History] Vitamin B Complex 1 each PO DAILY 08/23/16 [History] Acetaminophen w/Cod 300-30 mg [Tylenol w/Codeine #3] 1 each PO TID PRN #30 tablet 08/27/16 [Rx] Budesonide/Formoterol 160/4.5 [Symbicort 160/4.5] 2 puff IH BIDR #1 inhaler [Rx] Furosemide [Lasix] 20 mg PO BIDDIURETIC tablet 08/27/16 [Rx] Ipratropium/Albuterol Neb [Duoneb] 3 ml IH QIDR PRN #100 aerosol 08/27/16 [Rx] Metformin [Glucophage] 500 mg PO BID #60 tablet 08/27/16 [Rx] Nystatin POWDER [Nystop] 1 appl TP BID #1 bottle 08/27/16 [Rx] Amlodipine [Norvasc] 10 mg PO DAILY 09/21/16 [History] Oxygen 2 l NS CONT 09/21/16 [History] Allergies No Known Allergies Allergy (Verified 08/23/16 19:46) All Systems: A 10-system review of systems was performed and is negative for pertinent findings except as documented above in the HPI. - Constitutional Constitutional: as per HPI - Cardiovascular Cardiovascular: as per HPI - Respiratory Respiratory: as per HPI Physical Examination Vital Signs: Vital Signs, Last 4 Hours Temp Pulse Resp BP Pulse Ox 09/22/16 08:00 92 L 09/22/16 07:43 97.5 F L 88 18 138/70 92 L 09/22/16 06:45 90 L General appearance: other (Elderly morbidly obese female awake and alert in no obvious severe acute distress) Eyes: nonicteric ENT: oropharynx moist Mallampati (class): 4 Neck: supple, other (Abundant soft tissue structures negate the ability to determine JVD) Effort: mildly labored Auscultation: bilateral: diminished breath sounds (Severely diminished breath sound intensity throughout all lung [place] minimal bibasilar crackles), other ( Abundant soft tissue structures) Cardiovascular: regular rate and rhythm, other (Loud P2) Gastrointestinal: normoactive bowel sounds, non-distended, other (Pannus) Integumentary: normal Extremities: no clubbing, edema (Moderate chronic lower extremity edema) normal mental status, non-focal exam mood appropriate Results - Laboratory Findings CBC and BMP: 09/22/16 00:47 09/22/16 00:47 ABG ABG pH 7.41 pH Units (7.32-7.45) 09/22/16 00:39 ABG pCO2 48 mmHg (35-45) H 09/22/16 00:39 ABG pO2 57 mmHg (85-104) L 09/22/16 00:39 ABG O2 Saturation 90 % (95-98) L 09/22/16 00:39 PT/INR, D-dimer PT 12.1 Seconds (9.4-12.1) 09/22/16 00:47 D-Dimer 1410 ng/mLFEU (0-500) H 09/21/16 23:13 Abnormal lab findings: Abnormal lab results RBC 3.81 M/mcL (3.82-4.97) L 09/22/16 00:47 Hgb 11.4 g/dL (11.5-15.4) L 09/22/16 00:47 Hct 35.0 % (35.3-44.9) L 09/22/16 00:47 RDW 14.9 % (11.5-14.5) H 09/22/16 00:47 Plt Count 107 K/mcL (140-400) L 09/22/16 00:47 Lymphocytes # 0.2 K/mcL (0.6-4.6) L 09/22/16 00:47 Platelet Estimate Slight Decrease (Normal) L 09/22/16 00:47 APTT 191.1 Seconds (26.0-36.0) H* D 09/22/16 08:14 D-Dimer 1410 ng/mLFEU (0-500) H 09/21/16 23:13 Heparin Anti-Xa, Unfract 1.45 IU/mL (0.30-0.70) H* 09/22/16 08:14 ABG pCO2 48 mmHg (35-45) H 09/22/16 00:39 ABG pO2 57 mmHg (85-104) L 09/22/16 00:39 ABG HCO3 30.4 mEQ/L (21-27) H 09/22/16 00:39 ABG Total CO2 31.9 mEq/L (20-26) H 09/22/16 00:39 ABG O2 Saturation 90 % (95-98) L 09/22/16 00:39 ABG Base Excess 4.7 mEq/L (-2.0 to 3.0) H 09/22/16 00:39 Sodium 135 mEq/L (136-145) L 09/22/16 00:47 Chloride 97 mEq/L (98-109) L 09/22/16 00:47 BUN 27 mg/dL (7-20) H 09/22/16 00:47 Creatinine 1.28 mg/dL (0.57-1.11) H 09/22/16 00:47 Est GFR ( Amer) 50 (> 60) L 09/22/16 00:47 Est GFR (Non-Af Amer) 41 (> 60) L 09/22/16 00:47 Glucose 299 mg/dL (70-99) H 09/22/16 00:47 Magnesium 1.3 mg/dL (1.6-2.6) L 09/22/16 00:47 Troponin I 0.04 ng/mL (0-0.03) H* 09/22/16 06:29 B-Natriuretic Peptide 156 pg/mL (0-100) H 09/21/16 19:23 - Microbiology Findings Microbiology Findings: Microbiology, Last 48 Hours 09/22/16 07:00 Influenza Types A,B Antigen (ZAC) - Final Nasopharyngeal - Clinical Findings Intake & Output: Intake & Output 09/21/16 09/22/16 09/22/16 23:59 07:59 15:59 Intake Total 100 / 100 Output Total 0 / 0 Balance 100 / 100 Consult Discharge Plan - Plan Referrals: Eduardo Hernandez Jr, MD [Primary Care Provider] -
[2016-09-22 12:42] LABS: Bilirubin,Urine Negative (Negative); Blood,Urine Negative (Negative); Clarity,Urine Cloudy (Clear); Color,Urine Yellow (Yellow); Glucose,Urine (UA) >=1000 mg/dL (Normal); Ketones,Urine Negative (Negative); Leukocyte Esterase,Urine Small (Negative); Nitrite,Urine Negative (Negative); Protein,Urine Negative (Neg-Trace); Specific Gravity,Urine 1.017 (1.010-1.025); Urobilinogen,Urine Normal (Normal)
[2016-09-22 12:43] LABS: Bacteria,Urine Many per hpf (None-Few); Hyaline Casts,Urine None Seen per lpf (None-Few); RBC,Urine 0-3 per hpf (0-3); Squamous Epithelial Cell,Urine Many per lpf (None-Few)
[2016-09-22] MEDS ORDERED: *HR* HYDROcodone/Acet 5/325 mg TABLET PO PRN (13:11)
[2016-09-22] MEDS: Ipratropium/Albuterol Neb 3 ML IH SCH ×3 (16:39→23:36)
[2016-09-22] MEDS: Furosemide 20 MG/2 ML VIAL IVP SCH (17:33)
[2016-09-22] MEDS ORDERED: APIXABAN 5 MG TABLET PO SCH (17:37)
--- NOTE | 2016-09-22 18:21 | Internal Med Progress Note ---
Date of Encounter: 09/22/16 Time of Encounter: 10:30 - Assessment and plan (1) Acute and chronic respiratory failure Current Visit: No Status: Acute Assessment and plan: Secondary to COPD, obesity hypoventilation syndrome, obstructive sleep apnea and chronic diastolic heart failure with pulmonary hypertension and cor pulmonale. Appreciate pulmonology service input. Continue DuoNeb, doxycycline, Mucinex, I Vlasix, fluid restriction. start oral anticoagulation with Eliquis for high probably of chronic PE. Chest x-ray shows small bilateral opacities likely pleural effusion. Qualifiers: Respiratory failure complication: hypoxia and hypercapnia Qualified Code(s) : J96.21 - Acute and chronic respiratory failure with hypoxia; J96.22 - Acute and chronic respiratory failure with hypercapnia (2) Acute diastolic heart failure Current Visit: Yes Status: Acute Assessment and plan: Plan as above. (3) Acute exacerbation of chronic obstructive airways disease Current Visit: No Status: Acute Assessment and plan: As above. (4) Type 2 diabetes mellitus Current Visit: No Status: Chronic Assessment and plan: Insulin sliding scale. Diabetic diet. Qualifiers: Diabetes mellitus complication status: with hyperglycemia Diabetes mellitus senior living insulin use: without middle or intermediate school principal use Qualified Code(s): E11.65 - Type 2 diabetes mellitus with hyperglycemia (5) Hypertension Current Visit: No Status: Chronic Assessment and plan: home meds. Qualifiers: Hypertension type: essential hypertension Qualified Code(s): I10 - Essential (primary) hypertension (6) Morbid obesity with BMI of 45.0-49.9, adult Current Visit: No Status: Chronic - Subjective Interval history: Patient is a 8 L high flow nasal cannula. She is still short of breath at rest. - Constitutional Vitals: Temp Pulse Resp BP Pulse Ox 97.7 F 92 17 132/74 93 L 09/22/16 15:09 09/22/16 15:09 09/22/16 15:09 09/22/16 15:09 09/22/16 15:09 General appearance: Present: A&O X 3, morbidly obese, pleasant, no acute distress, answers questions appropriately - Eye Eye exam: Present: PERRL, sclera anicteric - Neck Neck exam general surgery: Present: supple, trachea midline. Absent: lymphadenopathy - Respiratory Respiratory exam: Present: decreased breath sounds (At the lung bases.), wheezes - Cardiovascular Cardiovascular exam: Present: RRR - GI/Abdominal GI/Abdominal exam: Present: normal bowel sounds, soft. Absent: distended, tenderness - Extremities Exam Extremities exam: Present: pedal edema - Back Exam Back exam: Absent: CVA tenderness (L), CVA tenderness (R) - Neurological Exam Neurological exam: Present: alert, oriented X3. Absent: facial droop, speech deficit - Skin Skin exam: Absent: rash Internal Medicine: Result - Labs CBC & Chem 7: 09/22/16 00:47 09/22/16 00:47 Labs: Short CBC 09/22/16 Range/Units 00:47 WBC 4.4 (4.3-11.1) K/mcL Hgb 11.4 L (11.5-15.4) g/dL Hct 35.0 L (35.3-44.9) % Plt Count 107 L (140-400) K/mcL Neutrophils # 4.0 (1.6-8.9) K/mcL BMP 09/22/16 00:47 Sodium 135 L Potassium 3.8 Chloride 97 L Carbon Dioxide 26 BUN 27 H Creatinine 1.28 H Glucose 299 H Calcium 9.0 Cardiac Enzymes 09/22/16 09/22/16 Range/Units 00:47 06:29 Troponin I 0.05 H* 0.04 H* (0-0.03) ng/mL Urine 09/22/16 Range/Units 12:25 Urine Color Yellow (Yellow) Urine Clarity Cloudy A (Clear) Urine pH 6.0 (5.0-8.0) pH Units Ur Specific [place] 1.017 (1.010-1.025) Urine Protein Negative (Neg-Trace) mg/dL Urine Glucose (UA) >=1000 H (Normal) mg/dL - ABG Interpretation ABG results: ABG ABG pH 7.41 pH Units (7.32-7.45) 09/22/16 00:39 ABG pCO2 48 mmHg (35-45) H 09/22/16 00:39 ABG pO2 57 mmHg (85-104) L 09/22/16 00:39 ABG O2 Saturation 90 % (95-98) L 09/22/16 00:39 PT/INR, D-dimer PT 12.1 Seconds (9.4-12.1) 09/22/16 00:47 D-Dimer 1410 ng/mLFEU (0-500) H 09/21/16 23:13 Consult Discharge Plan - Plan Referrals: Eduardo Hernandez Jr, MD [Primary Care Provider] - (office will call patient at home with appointment date and time at the beginning of next week.)
--- NOTE | 2016-09-22 18:48 | Venous Imaging Report ---
LE Venous Duplex Patient Name:Garima Pollack Order Number:[id number] Procedure Date:09/22/2016 Date:6Age:70 yrs Gender:Female Location:[facility] Room #: 2A26 Clerical Assigner:Regine Rodriguez Referring MD:Nita Gilbert DO garbage pick up man:Eduardo Hernandez MD Reading MD:Mj Butterfield MD , FACS Primary Indications:concern for PE Secondary Indications: Risk Factors Yes/No Anticoagulants Yes Hx of DVT Yes Impressions: Bilateral lower extremity: normal superficial and deep exam. Recommendations: After imaging the patient returned to their room. Findings Venous Duplex Results: Right: Venous imaging of the lower extremity reveals full patency and normal vessel compressibility of the right distal iliac, right common femoral, right superficial femoral, right popliteal, right posterior tibial, right peroneal, right great saphenous and right lesser saphenous. Doppler signals in the evaluated veins were normal. Left: Venous imaging of the lower extremity reveals full patency and normal vessel compressibility of the left distal iliac, left common femoral, left superficial femoral, left popliteal, left posterior tibial, left peroneal, left great saphenous and left lesser saphenous. Doppler signals in the evaluated veins were normal. Prior Study: No prior study available for comparison. Lower Extremity Venous Duplex Side Vein Compress Spontaneous Flow Augment Diameter (cm) Depth (cm) Right Distal Iliac Normal Yes Phasic Yes Right Common Femoral Normal Yes Phasic Yes Right Superficial Femoral Normal Yes Phasic Yes Right Popliteal Normal Yes Phasic Yes Right Posterior Tibial Normal Yes Phasic Yes Right Peroneal Normal Yes Phasic Yes Right Great Saphenous Normal Yes Phasic Yes Right Lesser Saphenous Normal Yes Phasic Yes Left Distal Iliac Normal Yes Phasic Yes Left Common Femoral Normal Yes Phasic Yes Left Superficial Femoral Normal Yes Phasic Yes Left Popliteal Normal Yes Phasic Yes Left Posterior Tibial Normal Yes Phasic Yes Left Peroneal Normal Yes Phasic Yes Left Great Saphenous Normal Yes Phasic Yes Left Lesser Saphenous Normal Yes Phasic Yes Updated by Mj Butterfield MD, FACS on 09/22/2016 6:42:15 PM Mj Butterfield MD electronically signed on 09/22/2016 6:42:49 PM with status of Final
--- NOTE | 2016-09-22 20:08 | Electrocardiograph Report ---
[place] [address] Test Date: 2016-09-21 Pat Name: Garima Pollack Department: 103 Room: 2A26 Gender: F Grapple Operator: : 1945 Requested By: Betito Junior Order Number: [id number] Reading MD: Ki Nicholson DO Measurements Intervals [place] Rate: 101 P: OK: 0 QRS: -9 QRSD: 101 T: 61 QT: 336 QTc: 394 Interpretive Statements Artifact complicates interpretation Appears to be sinus tachycardia with PACs Electronically Signed On 09-22-2016 20:06:38 EST by Ki Nicholson DO
[2016-09-22] MEDS: APIXABAN 5 MG TABLET PO SCH (22:16)
[2016-09-22] MEDS: Doxycycline 100 MG CAPSULE PO SCH (22:16)
[2016-09-22] MEDS: Budesonide Neb 0.5 MG/2 ML IH SCH ×2 (22:57→23:36)
[2016-09-23] MEDS: Ipratropium/Albuterol Neb 3 ML IH SCH ×6 (04:18→23:36)
[2016-09-23 04:49] LABS: ABG Base Excess 5.2 mEq/L (-2.0 to 3.0); ABG Oxygen Saturation 92 % (95-98); ABG PCO2 50 mmHg (35-45); ABG PO2 65 mmHg (85-104); ABG TCO2 32.5 mEq/L (20-26)
[2016-09-23 04:50] LABS: Blood Gas FiO2 44 %
[2016-09-23 06:41] LABS: Basophils % 0.2 %; Hematocrit 35.1 % (35.3-44.9); Hemoglobin 11.5 g/dL (11.5-15.4); Immature Granulocytes % 0.6 % (0-4); Lymphocytes # 0.2 K/mcL (0.6-4.6); Lymphocytes % 4.7 %; Mean Corpuscular HGB Conc 32.8 g/dL (31.6-35.5); Mean Corpuscular Volume 91.6 fL (83.0-100.0); Mean Platelet Volume 11.1 fL (9.4-12.4); Monocytes # 0.6 K/mcL (0.0-1.3); Monocytes % 11.9 %; Neutrophils # 3.8 K/mcL (1.6-8.9); Platelet Count 108 K/mcL (140-400); Red Blood Count 3.83 M/mcL (3.82-4.97); Red Cell Distribution Width 14.6 % (11.5-14.5); Segmented Neutrophils % 82.6 %
[2016-09-23 06:53] LABS: BUN/Creatinine Ratio 31 (6-26); Blood Urea Nitrogen 34 mg/dL (7-20); Calcium 8.6 mg/dL (8.6-10.8); Carbon Dioxide 26 mEq/L (19-29); Chloride 98 mEq/L (98-109); Glucose 269 mg/dL (70-99); Magnesium 1.6 mg/dL (1.6-2.6); Osmolality,Calculated 301 (280-300); Potassium 3.4 mEq/L (3.5-4.5); Sodium 137 mEq/L (136-145); eGFR For African Americans > 60 (> 60); eGFR For Non-African Americans 50 (> 60)
[2016-09-23] MEDS: Budesonide Neb 0.5 MG/2 ML IH SCH ×2 (08:27→21:00)
[2016-09-23] MEDS: Furosemide 20 MG/2 ML VIAL IVP SCH ×2 (08:51→17:09)
[2016-09-23] MEDS: Aspirin Enteric Coated 81 MG Tablet PO SCH (08:51)
[2016-09-23] MEDS: Ascorbic Acid 500 MG TABLET PO SCH (08:51)
[2016-09-23] MEDS: Doxycycline 100 MG CAPSULE PO SCH ×2 (08:51→22:09)
[2016-09-23] MEDS: Cholecalciferol (D-3) 1,000 UNIT TABLET PO SCH (08:51)
[2016-09-23] MEDS: amLODIPine 5 MG TABLET PO SCH (08:51)
[2016-09-23] MEDS: APIXABAN 5 MG TABLET PO SCH (08:51)
[2016-09-23] MEDS: Insulin LISPRO 300 UNITS/3 ML VIAL SQ SCH ×4 (08:52→22:02)
[2016-09-23] MEDS: Nystatin POWDER 30 GM BOTTLE TP SCH ×2 (08:54→23:13)
[2016-09-23] MEDS: Vitamin B Complex/Vit C/Vit E 1 EACH TABLET PO SCH (08:59)
[2016-09-23] MEDS: Metoprolol 100 MG TABLET PO SCH ×2 (08:59→18:10)
[2016-09-23] MEDS: Acetaminophen 325 MG TABLET PO PRN ×2 (08:59→17:23)
--- NOTE | 2016-09-23 10:54 | Pulmonology Progress Note ---
Date of Encounter: 09/23/16 Time of Encounter: 10:51 Assessment and Plan (1) Acute and chronic respiratory failure Current Visit: No Status: Acute Acute chronic respiratory failure with hypoxia and hypercapnia is due to obesity hypoventilation syndrome, sleep apnea, advanced COPD. The patient also has evidence of cor pulmonale. Appropriately, the patient has been placed on empiric anticoagulation since pulmonary thromboembolic disease cannot be included are excluded and furthermore the patient has risk factors for the same and reportedly has a history of prior DVT. Therefore, I think it is entirely reasonable to provide anticoagulation at least at this time. Patient is currently receiving appropriate medical therapy for treatment of COPD. If possible, I would advocate empiric diuresis since clinically, the patient has mild volume overload. Her graft unfortunately, the patient still requires high flow nasal cannula oxygen nearly 6 L/m and probably desaturates with any activity. Until the situation is improved, I do not believe the patient can be discharged from the hospital at least at this time. I reviewed my impressions with the patient, her 2 daughters in the primary service. Qualifiers: Respiratory failure complication: hypoxia and hypercapnia Qualified Code(s) : J96.21 - Acute and chronic respiratory failure with hypoxia; J96.22 - Acute and chronic respiratory failure with hypercapnia Subjective Principal diagnosis: Acute chronic respiratory failure with hypoxia hypercapnia Interval history: The patient continues to note rather substantial breathlessness with menial activities as well as desaturation events in spite of high flow nasal cannula supplementation. Apparently the patient did undergo according pulse oximetry last night and be available for review on Sunday determine qualification for use of BiPAP in the home setting prior to follow-up formal outpatient sleep evaluation. I note that the primary service has sedated treatment with Apixiban on an empiric basis for treatment of possible thromboembolic pulmonary disease (note that the leg Doppler studies yesterday were negative for DVT). The patient does not note substantial cough chest congestion or wheezing. Objective PUL Vital signs: Last Vital Signs Temp 98.4 F 09/23/16 07:09 Pulse 96 09/23/16 07:09 Resp 17 09/23/16 07:09 BP 168/68 09/23/16 07:09 Pulse Ox 89 L 09/23/16 07:09 General appearance: no acute distress, other (Morbidly obese female) Eyes: nonicteric Auscultation: bilateral: diminished breath sounds (Severely diminished, attenuated breath sounds all [place] faint bibasilar crackles) Cardiovascular: regular rate and rhythm, other (Gallop, loud P2) Gastrointestinal: normoactive bowel sounds, non-distended, other (Central obesity) Extremities: no cyanosis, edema Musculoskeletal: no deformities normal mental status, non-focal exam Results - Laboratory Findings CBC and BMP: 09/23/16 06:04 09/23/16 06:04 ABG ABG pH 7.40 pH Units (7.32-7.45) 09/23/16 04:30 ABG pCO2 50 mmHg (35-45) H 09/23/16 04:30 ABG pO2 65 mmHg (85-104) L 09/23/16 04:30 ABG O2 Saturation 92 % (95-98) L 09/23/16 04:30 PT/INR, D-dimer PT 12.1 Seconds (9.4-12.1) 09/22/16 00:47 D-Dimer 1410 ng/mLFEU (0-500) H 09/21/16 23:13 Abnormal lab findings: Abnormal lab results Hct 35.1 % (35.3-44.9) L 09/23/16 06:04 RDW 14.6 % (11.5-14.5) H 09/23/16 06:04 Plt Count 108 K/mcL (140-400) L 09/23/16 06:04 Lymphocytes # 0.2 K/mcL (0.6-4.6) L 09/23/16 06:04 Platelet Estimate Slight Decrease (Normal) L 09/22/16 00:47 APTT 108.7 Seconds (26.0-36.0) H 09/22/16 10:25 D-Dimer 1410 ng/mLFEU (0-500) H 09/21/16 23:13 Heparin Anti-Xa, Unfract 1.45 IU/mL (0.30-0.70) H* 09/22/16 08:14 ABG pCO2 50 mmHg (35-45) H 09/23/16 04:30 ABG pO2 65 mmHg (85-104) L 09/23/16 04:30 ABG HCO3 31.0 mEQ/L (21-27) H 09/23/16 04:30 ABG Total CO2 32.5 mEq/L (20-26) H 09/23/16 04:30 ABG O2 Saturation 92 % (95-98) L 09/23/16 04:30 ABG Base Excess 5.2 mEq/L (-2.0 to 3.0) H 09/23/16 04:30 Potassium 3.4 mEq/L (3.5-4.5) L 09/23/16 06:04 BUN 34 mg/dL (7-20) H 09/23/16 06:04 Est GFR (Non-Af Amer) 50 (> 60) L 09/23/16 06:04 BUN/Creatinine Ratio 31 (6-26) H 09/23/16 06:04 Glucose 269 mg/dL (70-99) H 09/23/16 06:04 POC Glucose 292 (58-89) H 09/22/16 20:33 Calculated Osmolality 301 (280-300) H 09/23/16 06:04 Troponin I 0.04 ng/mL (0-0.03) H* 09/22/16 06:29 B-Natriuretic Peptide 156 pg/mL (0-100) H 09/21/16 19:23 Urine Clarity Cloudy (Clear) A 09/22/16 12:25 Urine Glucose (UA) >=1000 mg/dL (Normal) H 09/22/16 12:25 Ur Leukocyte Esterase Small (Negative) H 09/22/16 12:25 Urine Microscopic WBC 5-15 per hpf (0-3) H 09/22/16 12:25 Ur Squamous Epith Cells Many per lpf (None-Few) H 09/22/16 12:25 Urine Bacteria Many per hpf (None-Few) H 09/22/16 12:25 - Microbiology Findings Microbiology Findings: Microbiology, Last 48 Hours 09/22/16 07:00 Influenza Types A,B Antigen (ZAC) - Final Nasopharyngeal - Clinical Findings Intake & Output: Intake & Output 09/22/16 09/23/16 09/23/16 23:59 07:59 15:59 Intake Total 240 / 240 240 / 240 Output Total 0 / 0 1100 / 1100 200 / 200 Balance 240 / 240 -1100 / -1100 40 / 40 Weight 127.4 kg Consult Discharge Plan - Plan Referrals: Eduardo Hernandez Jr, MD [Primary Care Provider] - (office will call patient at home with appointment date and time at the beginning of next week.)
--- NOTE | 2016-09-23 15:02 | Internal Med Progress Note ---
Date of Encounter: 09/23/16 Time of Encounter: 14:30 - Assessment and plan (1) Acute and chronic respiratory failure Current Visit: No Status: Acute Assessment and plan: Secondary to COPD, obesity hypoventilation syndrome, obstructive sleep apnea and chronic diastolic heart failure with pulmonary hypertension and cor pulmonale. Appreciate pulmonology service input. Continue DuoNeb, doxycycline, Mucinex, IV lasix, fluid restriction. Chest x-ray shows small bilateral opacities likely pleural effusion. Qualifiers: Respiratory failure complication: hypoxia and hypercapnia Qualified Code(s) : J96.21 - Acute and chronic respiratory failure with hypoxia; J96.22 - Acute and chronic respiratory failure with hypercapnia (2) Acute diastolic heart failure Current Visit: Yes Status: Acute Assessment and plan: Plan as above. (3) Acute exacerbation of chronic obstructive airways disease Current Visit: No Status: Acute Assessment and plan: As above. (4) Chronic pulmonary embolism Current Visit: Yes Status: Acute Assessment and plan: due to elevated hypertension and cor pulmonale. 09/22: started on eliquis 09/23: conjunctival hemorrhage of left eye and rectal bleeding. Stop Eliquis. pt will benefit from outpatient GI and ophthalmology evaluation. Qualifiers: Pulmonary embolism type: other Acute cor pulmonale presence: without acute cor pulmonale Qualified Code(s): I27.82 - Chronic pulmonary embolism (5) Anxiety Current Visit: Yes Status: Acute (6) Rectal bleeding Current Visit: Yes Status: Acute Assessment and plan: secondary to eliquis. holding eliquis. close monitoring of hgb. (7) Conjunctival hemorrhage of left eye Current Visit: Yes Status: Acute Assessment and plan: holding eliquis. close monitoring of hgb. (8) Type 2 diabetes mellitus Current Visit: No Status: Chronic Assessment and plan: Insulin sliding scale. Diabetic diet. Qualifiers: Diabetes mellitus complication status: with hyperglycemia Diabetes mellitus director long term care insulin use: without fdc use Qualified Code(s): E11.65 - Type 2 diabetes mellitus with hyperglycemia (9) Hypertension Current Visit: No Status: Chronic Assessment and plan: home meds. Qualifiers: Hypertension type: essential hypertension Qualified Code(s): I10 - Essential (primary) hypertension (10) Morbid obesity with BMI of 45.0-49.9, adult Current Visit: No Status: Chronic - Subjective Interval history: Patient is at 6 L high flow nasal cannula. She reports rectal bleeding and left eye hemorrhage. Still short of breath at minimal exertion. She also develops episodes of anxiety when standing up. - Constitutional Vitals: Temp Pulse Resp BP Pulse Ox 98.2 F 98 18 162/74 91 L 09/23/16 12:24 09/23/16 12:24 09/23/16 12:24 09/23/16 12:24 09/23/16 12:24 General appearance: Present: A&O X 3, morbidly obese, pleasant, no acute distress, answers questions appropriately - Eye Eye exam: Present: PERRL, sclera anicteric - ENT ENT exam: Present: mucous membranes moist - Neck Neck exam general surgery: Present: supple, trachea midline. Absent: lymphadenopathy - Respiratory Respiratory exam: Present: decreased breath sounds, wheezes - Cardiovascular Cardiovascular exam: Present: RRR - GI/Abdominal GI/Abdominal exam: Present: normal bowel sounds, soft. Absent: distended, tenderness - Back Exam Back exam: Absent: CVA tenderness (L), CVA tenderness (R) - Skin Skin exam: Present: dry. Absent: rash Internal Medicine: Result - Labs CBC & Chem 7: 09/23/16 06:04 09/23/16 06:04 Labs: Short CBC 09/23/16 Range/Units 06:04 WBC 4.6 (4.3-11.1) K/mcL Hgb 11.5 (11.5-15.4) g/dL Hct 35.1 L (35.3-44.9) % Plt Count 108 L (140-400) K/mcL Neutrophils # 3.8 (1.6-8.9) K/mcL BMP 09/23/16 06:04 Sodium 137 Potassium 3.4 L Chloride 98 Carbon Dioxide 26 BUN 34 H Creatinine 1.09 Glucose 269 H Calcium 8.6 - ABG Interpretation ABG results: ABG ABG pH 7.40 pH Units (7.32-7.45) 09/23/16 04:30 ABG pCO2 50 mmHg (35-45) H 09/23/16 04:30 ABG pO2 65 mmHg (85-104) L 09/23/16 04:30 ABG O2 Saturation 92 % (95-98) L 09/23/16 04:30 PT/INR, D-dimer PT 12.1 Seconds (9.4-12.1) 09/22/16 00:47 D-Dimer 1410 ng/mLFEU (0-500) H 09/21/16 23:13 Consult Discharge Plan - Plan Referrals: Eduardo Hernandez Jr, MD [Primary Care Provider] - (office will call patient at home with appointment date and time at the beginning of next week.)
[2016-09-23] MEDS ORDERED: *HR* LORazepam 2 MG/ML VIAL IVP STA (18:03)
[2016-09-23] MEDS: ALPRAZolam 0.25 MG TABLET PO SCH (22:10)
[2016-09-24] MEDS: *HR* Metoprolol 5 MG/5 ML VIAL IVP PRN (02:33)
--- NOTE | 2016-09-24 03:23 | Event Note ---
Date of Encounter: 09/24/16 Time of Encounter: 03:20 Called about patient having fast HR, low grade fever, and increasing SOB. STAT CXR concerning for RML/RLL pneumonia. EKG shows Atrial Fib/RVR. I ordered Lopressor IV, potassium supplement for hypokalemia, blood cultures and IV antibiotics. I am also going to place her on BiPap for now due to increased WOB and hypoxemia. Pt refusing ABG.
[2016-09-24] MEDS: Ipratropium/Albuterol Neb 3 ML IH SCH ×6 (03:47→23:21)
[2016-09-24] MEDS ORDERED: Levofloxacin 750 MG/150 ML 750 MG/150 ML BAG IVPB SCH (04:00)
[2016-09-24] MEDS ORDERED: Vancomycin 2,000 MG in D5% in Water 250 ML IVPB SCH (04:00)
[2016-09-24] MEDS: Vancomycin 1,750 MG in D5% in Water 500 ML IVPB SCH ×2 (04:13→15:51)
[2016-09-24] MEDS ORDERED: 0.9 % Sodium Chloride 250 ML ONE ×2 (05:32→18:43)
[2016-09-24 07:46] LABS: Basophils % 0.3 %; Hematocrit 35.1 % (35.3-44.9); Hemoglobin 11.4 g/dL (11.5-15.4); Immature Granulocytes % 0.5 % (0-4); Lymphocytes # 0.4 K/mcL (0.6-4.6); Lymphocytes % 11.4 %; Mean Corpuscular HGB Conc 32.5 g/dL (31.6-35.5); Mean Corpuscular Hemoglobin 30.4 pg (28.0-33.3); Mean Corpuscular Volume 93.6 fL (83.0-100.0); Mean Platelet Volume 10.6 fL (9.4-12.4); Monocytes # 0.4 K/mcL (0.0-1.3); Monocytes % 10.6 %; Platelet Count 104 K/mcL (140-400); Red Blood Count 3.75 M/mcL (3.82-4.97); Red Cell Distribution Width 15.1 % (11.5-14.5); Segmented Neutrophils % 77.2 %
[2016-09-24] MEDS: Budesonide Neb 0.5 MG/2 ML IH SCH ×2 (07:55→20:46)
[2016-09-24 08:03] LABS: Calcium 8.6 mg/dL (8.6-10.8); Magnesium 1.3 mg/dL (1.6-2.6); Phosphorous 1.9 mg/dL (2.3-4.7); Potassium 4.2 mEq/L (3.5-4.5)
[2016-09-24] MEDS: Insulin LISPRO 300 UNITS/3 ML VIAL SQ SCH ×3 (08:47→17:06)
[2016-09-24] MEDS: Furosemide 20 MG/2 ML VIAL IVP SCH ×2 (08:47→17:06)
[2016-09-24] MEDS: Ascorbic Acid 500 MG TABLET PO SCH (08:48)
[2016-09-24] MEDS: Metoprolol 100 MG TABLET PO SCH ×2 (08:48→21:33)
[2016-09-24] MEDS: Aspirin Enteric Coated 81 MG Tablet PO SCH (08:48)
[2016-09-24] MEDS: Piperacillin/Tazobactam 3.375 GM in D5% in Water (Mini-Bag+) 100 ML IVPB SCH ×2 (08:48→15:50)
[2016-09-24] MEDS: amLODIPine 5 MG TABLET PO SCH (08:48)
[2016-09-24] MEDS: Cholecalciferol (D-3) 1,000 UNIT TABLET PO SCH (08:48)
[2016-09-24] MEDS: Vitamin B Complex/Vit C/Vit E 1 EACH TABLET PO SCH (08:48)
[2016-09-24] MEDS: Nystatin POWDER 30 GM BOTTLE TP SCH ×2 (08:49→21:37)
[2016-09-24] MEDS: Acetaminophen 325 MG TABLET PO PRN (09:07)
[2016-09-24] MEDS ORDERED: Magnesium Sulfate 2 GM in D5% in Water 100 ML IVPB STA (11:01)
--- NOTE | 2016-09-24 12:01 | Pulmonology Progress Note ---
Date of Encounter: 09/24/16 Time of Encounter: 10:20 Assessment and Plan (1) Acute and chronic respiratory failure Current Visit: No Status: Acute Acute chronic respiratory failure with hypoxia and hypercapnia is due to obesity hypoventilation syndrome, sleep apnea, advanced COPD. The patient also has evidence of cor pulmonale. Appropriately, the patient had been placed on empiric anticoagulation since pulmonary thromboembolic disease could not be excluded and furthermore the patient has risk factors for the same and reportedly has a history of prior DVT. Systemic anticoagulation was discontinued yesterday in light of rectal bleed (stable hemoglobin values nonetheless). Given concern for pneumonia in light of the events as described earlier, I believe it is reasonable to continue antibiotic therapy but streamline to vancomycin and zosyn until culture verification. Unfortunately, the patient still requires high flow nasal cannula oxygen nearly 6 L/m and probably desaturates with any activity. I concur with use of BiPAP both at night and during the daytime with any naps particularly in light of desaturation events and the high pretest probability of obesity hypoventilation and sleep apnea in this individual. Poor prognosis in light of current illness, co-morbiditites, perfomance status. Above reviewed with patient, both daughters. Qualifiers: Respiratory failure complication: hypoxia and hypercapnia Qualified Code(s) : J96.21 - Acute and chronic respiratory failure with hypoxia; J96.22 - Acute and chronic respiratory failure with hypercapnia Subjective Principal diagnosis: Acute chronic respiratory failure with hypoxia hypercapnia Interval history: The patient continues to note rather substantial breathlessness with menial activities as well as desaturation events in spite of high flow nasal cannula supplementation. Dr. Meyers was called last night to evaluate the patient given tachycardia worsening desaturation and fever. Chest imaging suggested presence of new bibasilar infiltrates and given fever and CONCERN for pneumonia and multiple broad-spectrum antimicrobial agents were initiated. The patient was also placed on noninvasive ventilatory support which per my discussion with patient and family she wore up until the global project manager hours. Currently, the patient denies significant purulent sputum production or hemoptysis. The patient does relate a history of persisting chest congestion and chest tightness. For my review of the chart, the patient's empiric anticoagulation was discontinued yesterday in light of rectal bleeding. Objective PUL Vital signs: Last Vital Signs Temp 98.8 F 09/24/16 11:20 Pulse 91 09/24/16 11:20 Resp 18 02/26/17 11:47 BP 163/80 09/24/16 11:20 Pulse Ox 90 L 09/24/16 11:47 General appearance: no acute distress, other (Morbidly obese female) Eyes: nonicteric ENT: oropharynx moist Mallampati (class): 3 Auscultation: bilateral: diminished breath sounds, rhonchi Cardiovascular: irregular rhythm, other (Loud P2) Gastrointestinal: normoactive bowel sounds, non-distended, other (Central obesity) Integumentary: normal Extremities: no cyanosis, edema (Chronic lower extremity edema with mild stasis changes) normal mental status, non-focal exam mood appropriate Results - Laboratory Findings CBC and BMP: 09/24/16 07:29 09/24/16 07:29 ABG ABG pH 7.40 pH Units (7.32-7.45) 09/23/16 04:30 ABG pCO2 50 mmHg (35-45) H 09/23/16 04:30 ABG pO2 65 mmHg (85-104) L 09/23/16 04:30 ABG O2 Saturation 92 % (95-98) L 09/23/16 04:30 PT/INR, D-dimer PT 12.1 Seconds (9.4-12.1) 09/22/16 00:47 D-Dimer 1410 ng/mLFEU (0-500) H 09/21/16 23:13 Abnormal lab findings: Abnormal lab results WBC 3.9 K/mcL (4.3-11.1) L 09/24/16 07:29 RBC 3.75 M/mcL (3.82-4.97) L 09/24/16 07:29 Hgb 11.4 g/dL (11.5-15.4) L 09/24/16 07:29 Hct 35.1 % (35.3-44.9) L 09/24/16 07:29 RDW 15.1 % (11.5-14.5) H 09/24/16 07:29 Plt Count 104 K/mcL (140-400) L 09/24/16 07:29 Lymphocytes # 0.4 K/mcL (0.6-4.6) L 09/24/16 07:29 Platelet Estimate Slight Decrease (Normal) L 09/22/16 00:47 APTT 108.7 Seconds (26.0-36.0) H 09/22/16 10:25 D-Dimer 1410 ng/mLFEU (0-500) H 09/21/16 23:13 Heparin Anti-Xa, Unfract 1.45 IU/mL (0.30-0.70) H* 09/22/16 08:14 ABG pCO2 50 mmHg (35-45) H 09/23/16 04:30 ABG pO2 65 mmHg (85-104) L 09/23/16 04:30 ABG HCO3 31.0 mEQ/L (21-27) H 09/23/16 04:30 ABG Total CO2 32.5 mEq/L (20-26) H 09/23/16 04:30 ABG O2 Saturation 92 % (95-98) L 09/23/16 04:30 ABG Base Excess 5.2 mEq/L (-2.0 to 3.0) H 09/23/16 04:30 Sodium 135 mEq/L (136-145) L 09/24/16 07:29 BUN 27 mg/dL (7-20) H 09/24/16 07:29 Creatinine 1.13 mg/dL (0.57-1.11) H 09/24/16 07:29 Est GFR ( Amer) 58 (> 60) L 09/24/16 07:29 Est GFR (Non-Af Amer) 48 (> 60) L 09/24/16 07:29 Glucose 189 mg/dL (70-99) H 09/24/16 07:29 POC Glucose 186 (58-89) H 09/23/16 20:17 Phosphorus 1.9 mg/dL (2.3-4.7) L 09/24/16 07:29 Magnesium 1.3 mg/dL (1.6-2.6) L 09/24/16 07:29 Troponin I 0.04 ng/mL (0-0.03) H* 09/22/16 06:29 B-Natriuretic Peptide 156 pg/mL (0-100) H 09/21/16 19:23 Urine Clarity Cloudy (Clear) A 09/22/16 12:25 Urine Glucose (UA) >=1000 mg/dL (Normal) H 09/22/16 12:25 Ur Leukocyte Esterase Small (Negative) H 09/22/16 12:25 Urine Microscopic WBC 5-15 per hpf (0-3) H 09/22/16 12:25 Ur Squamous Epith Cells Many per lpf (None-Few) H 09/22/16 12:25 Urine Bacteria Many per hpf (None-Few) H 09/22/16 12:25 - Microbiology Findings Microbiology Findings: Sputum Gram stain notable for many white cells and ran positive cocci, culture pending. Microbiology, Last 48 Hours 09/23/16 09:00 Sputum Culture - Preliminary Sputum 09/22/16 07:00 Influenza Types A,B Antigen (ZAC) - Final Nasopharyngeal - Diagnostic Findings Chest x-ray: image reviewed (Chest x-ray compared to older films notable for findings consistent with an suggestive of COPD in addition to small bilateral effusions and bibasilar infiltrates. The bibasilar infiltrates are new in comparison the older films.) - Clinical Findings Intake & Output: Intake & Output 09/23/16 09/24/16 09/24/16 23:59 07:59 15:59 Intake Total 800 / 800 175 / 175 360 / 360 Output Total 400 / 400 Balance 400 / 400 175 / 175 360 / 360 Weight 127 kg Consult Discharge Plan - Plan Referrals: Eduardo Hernandez Jr, MD [Primary Care Provider] - (office will call patient at home with appointment date and time at the beginning of next week.)
--- NOTE | 2016-09-24 12:56 | Internal Med Progress Note ---
Date of Encounter: 09/24/16 Time of Encounter: 11:00 - Assessment and plan (1) Acute and chronic respiratory failure Current Visit: No Status: Acute Assessment and plan: Secondary to COPD, obesity hypoventilation syndrome, obstructive sleep apnea, PNA and chronic diastolic heart failure with pulmonary hypertension and cor pulmonale. Appreciate pulmonology service input. 2am, Pt had an episode of tachycardia, tachypnea, desaturation and fever. stat CXR showed small bilateral pleural effusion with mild worsening of bibasilar opacities. EKG showed atrial fibrillation with RVR. Pt required BIPAP and was started on IV Zosyn, Iv Levaquin, Vancomycin. and Cardizem drip. Continue DuoNeb , Mucinex, IV vancomycin, Zosyn, levaquin, IV lasix. BIPAP at bedtime and prn. Qualifiers: Respiratory failure complication: hypoxia and hypercapnia Qualified Code(s) : J96.21 - Acute and chronic respiratory failure with hypoxia; J96.22 - Acute and chronic respiratory failure with hypercapnia (2) Pneumonia Current Visit: Yes Status: Acute Assessment and plan: bacterial pna plan as above Qualifiers: Pneumonia type: due to unspecified organism Laterality: bilateral Lung location: lower lobe of lung Qualified Code(s): J18.9 - Pneumonia, unspecified organism (3) Atrial fibrillation with RVR Current Visit: Yes Status: Acute Assessment and plan: cardizem drip. hr is adequate (4) Acute diastolic heart failure Current Visit: Yes Status: Acute Assessment and plan: Plan as above. (5) Acute exacerbation of chronic obstructive airways disease Current Visit: No Status: Acute Assessment and plan: As above. (6) Chronic pulmonary embolism Current Visit: Yes Status: Acute Assessment and plan: due to elevated hypertension and cor pulmonale. 09/22: started on eliquis 09/23: conjunctival hemorrhage of left eye and rectal bleeding. Stopped Eliquis. pt will benefit from outpatient GI and ophthalmology evaluation. heaprin subq tid Qualifiers: Pulmonary embolism type: other Acute cor pulmonale presence: without acute cor pulmonale Qualified Code(s): I27.82 - Chronic pulmonary embolism (7) Anxiety Current Visit: Yes Status: Acute Assessment and plan: ativan prn (8) Rectal bleeding Current Visit: Yes Status: Acute Assessment and plan: 09/23: episode of bloody stools. secondary to eliquis. holding eliquis. no more episodes. hgb is stable. close monitoring of hgb. (9) Conjunctival hemorrhage of left eye Current Visit: Yes Status: Acute Assessment and plan: holding eliquis. resolving (10) Type 2 diabetes mellitus Current Visit: No Status: Chronic Assessment and plan: Insulin sliding scale. Diabetic diet. Qualifiers: Diabetes mellitus complication status: with hyperglycemia Diabetes mellitus termite treater insulin use: without long-term use Qualified Code(s): E11.65 - Type 2 diabetes mellitus with hyperglycemia (11) Hypertension Current Visit: No Status: Chronic Assessment and plan: home meds. Qualifiers: Hypertension type: essential hypertension Qualified Code(s): I10 - Essential (primary) hypertension (12) Morbid obesity with BMI of 45.0-49.9, adult Current Visit: No Status: Chronic (13) Obesity hypoventilation syndrome Current Visit: Yes Status: Chronic Assessment and plan: plan as above. - Subjective Interval history: 2am, Pt had an episode of tachycardia, tachypnea, desaturation and fever. stat CXR showed small bilateral pleural effusion with mild worsening of bibasilar opacities. EKG showed atrial fibrillation with RVR. Pt required BIPAP and was started on IV Zosyn, Iv Levaquin, Vancomycin. and Cardizem drip. - Constitutional Vitals: Temp Pulse Resp BP Pulse Ox 98.8 F 91 18 163/80 90 L 09/24/16 11:20 09/24/16 11:20 09/24/16 11:47 09/24/16 11:20 09/24/16 11:47 General appearance: Present: cooperative, A&O X 3, morbidly obese, pleasant, no acute distress, answers questions appropriately - Eye Eye exam: Present: PERRL, conjuntiva pink (left conjunctival hemorrhage) - Neck Neck exam general surgery: Present: supple, trachea midline. Absent: lymphadenopathy - Respiratory Respiratory exam: Present: decreased breath sounds, rhonchi, wheezes - Cardiovascular Cardiovascular exam: Present: RRR - GI/Abdominal GI/Abdominal exam: Present: normal bowel sounds, soft. Absent: distended, tenderness - Extremities Exam Extremities exam: Present: pedal edema - Back Exam Back exam: Absent: CVA tenderness (L), CVA tenderness (R) - Skin Skin exam: Absent: intact (superficial arterial vessels are visible on chest) Internal Medicine: Result - Labs CBC & Chem 7: 09/24/16 07:29 09/24/16 07:29 Labs: Short CBC 09/24/16 Range/Units 07:29 WBC 3.9 L (4.3-11.1) K/mcL Hgb 11.4 L (11.5-15.4) g/dL Hct 35.1 L (35.3-44.9) % Plt Count 104 L (140-400) K/mcL Neutrophils # 3.0 (1.6-8.9) K/mcL BMP 09/24/16 07:29 Sodium 135 L Potassium 4.2 Chloride 99 Carbon Dioxide 23 BUN 27 H Creatinine 1.13 H Glucose 189 H Calcium 8.6 - ABG Interpretation ABG results: ABG ABG pH 7.40 pH Units (7.32-7.45) 09/23/16 04:30 ABG pCO2 50 mmHg (35-45) H 09/23/16 04:30 ABG pO2 65 mmHg (85-104) L 09/23/16 04:30 ABG O2 Saturation 92 % (95-98) L 09/23/16 04:30 PT/INR, D-dimer PT 12.1 Seconds (9.4-12.1) 09/22/16 00:47 D-Dimer 1410 ng/mLFEU (0-500) H 09/21/16 23:13 - Impressions Impressions Chest X-Ray 09/24/16 02:01 IMPRESSION: Small bilateral pleural effusions with mild worsening of bibasilar opacities since the prior examination. COPD. D/ / Salima Light MD / Salima Light MD Interpreting Provider: Salima Light MD Consult Discharge Plan - Plan Referrals: Eduardo Hernandez Jr, MD [Primary Care Provider] - (office will call patient at home with appointment date and time at the beginning of next week.)
[2016-09-24] MEDS: *HR* Heparin 5,000 UNIT/ML VIAL SQ SCH (15:52)
[2016-09-24] MEDS: ALPRAZolam 0.25 MG TABLET PO SCH (21:33)
[2016-09-25] MEDS: Insulin LISPRO 300 UNITS/3 ML VIAL SQ SCH ×5 (01:09→21:26)
[2016-09-25] MEDS: *HR* Heparin 5,000 UNIT/ML VIAL SQ SCH ×2 (01:10→07:01)
[2016-09-25] MEDS: Piperacillin/Tazobactam 3.375 GM in D5% in Water (Mini-Bag+) 100 ML IVPB SCH ×3 (01:50→16:30)
[2016-09-25] MEDS: Ipratropium/Albuterol Neb 3 ML IH SCH ×5 (03:42→19:54)
[2016-09-25] MEDS ORDERED: Vancomycin 1,250 MG in D5% in Water 250 ML IVPB SCH ×2 (04:00→16:00)
[2016-09-25] MEDS: *HR* Metoprolol 5 MG/5 ML VIAL IVP PRN (04:31)
[2016-09-25] MEDS: Acetaminophen 325 MG TABLET PO PRN ×2 (04:34→21:36)
[2016-09-25 06:34] LABS: Basophils % 0.7 %; Red Blood Count 3.94 M/mcL (3.82-4.97)
[2016-09-25 06:36] LABS: Hemoglobin 11.5 g/dL (11.5-15.4); Immature Platelets 4.5 % (1.1-6.1); Lymphocytes % 17.6 %; Mean Corpuscular HGB Conc 31.9 g/dL (31.6-35.5); Mean Corpuscular Hemoglobin 29.2 pg (28.0-33.3); Mean Corpuscular Volume 91.4 fL (83.0-100.0); Mean Platelet Volume 10.3 fL (9.4-12.4); Monocytes # 0.2 K/mcL (0.0-1.3); Monocytes % 7.2 %; Neutrophils # 2.3 K/mcL (1.6-8.9); Red Cell Distribution Width 14.9 % (11.5-14.5); Segmented Neutrophils % 73.5 %
[2016-09-25 06:42] LABS: Lymphocytes # 0.6 K/mcL (0.6-4.6); Platelet Count 97 K/mcL (140-400)
[2016-09-25 06:48] LABS: Calcium 8.6 mg/dL (8.6-10.8); Magnesium 1.6 mg/dL (1.6-2.6); Phosphorous 3.6 mg/dL (2.3-4.7); Potassium 4.1 mEq/L (3.5-4.5)
[2016-09-25 07:11] LABS: Platelet Estimate Slight Decrease (Normal)
[2016-09-25] MEDS ORDERED: Furosemide 20 MG/2 ML VIAL IVP SCH (08:00)
[2016-09-25] MEDS ORDERED: 0.9 % Sodium Chloride 500 ML ONE (08:27)
[2016-09-25] MEDS: Vitamin B Complex/Vit C/Vit E 1 EACH TABLET PO SCH (08:47)
[2016-09-25] MEDS: Cholecalciferol (D-3) 1,000 UNIT TABLET PO SCH (08:48)
[2016-09-25] MEDS: Ascorbic Acid 500 MG TABLET PO SCH (08:49)
[2016-09-25] MEDS: Aspirin Enteric Coated 81 MG Tablet PO SCH (08:49)
[2016-09-25] MEDS: Metoprolol 100 MG TABLET PO SCH ×2 (08:49→21:35)
[2016-09-25] MEDS: Nystatin POWDER 30 GM BOTTLE TP SCH ×2 (08:50→21:38)
[2016-09-25] MEDS ORDERED: amLODIPine 5 MG TABLET PO SCH (09:00)
[2016-09-25] MEDS: Budesonide Neb 0.5 MG/2 ML IH SCH ×2 (10:37→20:05)
[2016-09-25] MEDS ORDERED: ALPRAZolam 0.25 MG TABLET PO SCH ×2 (11:13→21:00)
[2016-09-25] MEDS ORDERED: ALPRAZolam 0.25 MG TABLET PO PRN (11:34)
--- NOTE | 2016-09-25 11:39 | Internal Med Progress Note ---
Date of Encounter: 09/25/16 Time of Encounter: 11:15 - Assessment and plan (1) Acute and chronic respiratory failure Current Visit: No Status: Acute Assessment and plan: Secondary to PNA, COPD, obesity hypoventilation syndrome, obstructive sleep apnea, and chronic diastolic heart failure with pulmonary hypertension and cor pulmonale. Appreciate pulmonology service input. 09/24: 2am, Pt had an episode of tachycardia, tachypnea, desaturation and fever. stat CXR showed small bilateral pleural effusion with mild worsening of bibasilar opacities. EKG showed atrial fibrillation with RVR. Pt required BIPAP and was started on IV Zosyn, Iv Levaquin, Vancomycin. and Cardizem drip. Continue DuoNeb, Mucinex, IV vancomycin, Zosyn, levaquin, IV lasix. BIPAP at bedtime and prn. 09/25: Pt on BIPAP FiO2 75% to maintain SaO2 >88%. Family an pt removed BIPAP a couple of times and SaO2 went down to 81%. I spoke with patient and family and explained the need for bedrest, and BIPAP. They verbalized understanding and agreement with the plan. Transfer to N. Continue BIPAP, DuoNeb, IV solumedrol , Mucinex, IV vancomycin, Zosyn, IV lasix, bedrest. Qualifiers: Respiratory failure complication: hypoxia and hypercapnia Qualified Code(s) : J96.21 - Acute and chronic respiratory failure with hypoxia; J96.22 - Acute and chronic respiratory failure with hypercapnia (2) Pneumonia Current Visit: Yes Status: Acute Assessment and plan: bacterial pna plan as above Qualifiers: Pneumonia type: due to unspecified organism Laterality: bilateral Lung location: lower lobe of lung Qualified Code(s): J18.9 - Pneumonia, unspecified organism (3) Atrial fibrillation with RVR Current Visit: Yes Status: Acute Assessment and plan: cardizem drip. hr is adequate. Patient will remain on Cardizem drip currently her respiratory status improved and she will transition to oral Cardizem. (4) Acute diastolic heart failure Current Visit: Yes Status: Acute Assessment and plan: Plan as above. (5) Acute exacerbation of chronic obstructive airways disease Current Visit: No Status: Acute Assessment and plan: As above. (6) Chronic pulmonary embolism Current Visit: Yes Status: Acute Assessment and plan: due to elevated hypertension and cor pulmonale. 09/22: started on eliquis 09/23: conjunctival hemorrhage of left eye and rectal bleeding. Stopped Eliquis. pt will benefit from outpatient GI and ophthalmology evaluation. heaprin subq tid Qualifiers: Pulmonary embolism type: other Acute cor pulmonale presence: without acute cor pulmonale Qualified Code(s): I27.82 - Chronic pulmonary embolism (7) Anxiety Current Visit: Yes Status: Acute Assessment and plan: xanax prn (8) Rectal bleeding Current Visit: Yes Status: Acute Assessment and plan: 09/23: episode of bloody stools. secondary to eliquis. holding eliquis. no more episodes. hgb is stable. close monitoring of hgb. (9) Conjunctival hemorrhage of left eye Current Visit: Yes Status: Acute Assessment and plan: holding eliquis. resolving (10) Type 2 diabetes mellitus Current Visit: No Status: Chronic Assessment and plan: Insulin sliding scale. Diabetic diet. Qualifiers: Diabetes mellitus complication status: with hyperglycemia Diabetes mellitus halfway insulin use: without continuous churn buttermaker use Qualified Code(s): E11.65 - Type 2 diabetes mellitus with hyperglycemia (11) Hypertension Current Visit: No Status: Chronic Assessment and plan: home meds. Qualifiers: Hypertension type: essential hypertension Qualified Code(s): I10 - Essential (primary) hypertension (12) Morbid obesity with BMI of 45.0-49.9, adult Current Visit: No Status: Chronic (13) Obesity hypoventilation syndrome Current Visit: Yes Status: Chronic Assessment and plan: plan as above. - Subjective Interval history: Pt on BIPAP FiO2 75% to maintain SaO2 >88%. Family an pt removed BIPAP a couple of times and SaO2 went down to 81%, I spoke with patient and family and explained the need for bedrest, and BIPAP. - Constitutional Vitals: Temp Pulse Resp BP Pulse Ox 99.7 F H 96 26 125/57 90 L 09/25/16 08:45 09/25/16 08:45 09/25/16 10:37 09/25/16 08:45 09/25/16 10:37 General appearance: Present: cooperative, A&O X 3, morbidly obese, pleasant, no acute distress, answers questions appropriately - Eye Eye exam: Present: conjuntiva pink - ENT ENT exam: Present: mucous membranes moist - Neck Neck exam general surgery: Present: supple, trachea midline. Absent: lymphadenopathy - Respiratory Respiratory exam: Present: decreased breath sounds, wheezes - Cardiovascular Cardiovascular exam: Present: irregular rhythm - GI/Abdominal GI/Abdominal exam: Present: soft. Absent: distended, normal bowel sounds, tenderness - Extremities Exam Extremities exam: Present: pedal edema - Back Exam Back exam: Absent: CVA tenderness (L), CVA tenderness (R) - Neurological Exam Neurological exam: Present: alert, oriented X3 Internal Medicine: Result - Labs CBC & Chem 7: 09/25/16 06:16 09/25/16 06:16 Labs: Short CBC 09/25/16 Range/Units 06:16 WBC 3.1 L (4.3-11.1) K/mcL Hgb 11.5 (11.5-15.4) g/dL Hct 36.0 (35.3-44.9) % Plt Count 97 L (140-400) K/mcL Neutrophils # 2.3 (1.6-8.9) K/mcL BMP 09/25/16 06:16 Sodium 136 Potassium 4.1 Chloride 99 Carbon Dioxide 26 BUN 25 H Creatinine 1.31 H Glucose 200 H Calcium 8.6 - ABG Interpretation ABG results: ABG ABG pH 7.40 pH Units (7.32-7.45) 09/23/16 04:30 ABG pCO2 50 mmHg (35-45) H 09/23/16 04:30 ABG pO2 65 mmHg (85-104) L 09/23/16 04:30 ABG O2 Saturation 92 % (95-98) L 09/23/16 04:30 PT/INR, D-dimer PT 12.1 Seconds (9.4-12.1) 09/22/16 00:47 D-Dimer 1410 ng/mLFEU (0-500) H 09/21/16 23:13 Consult Discharge Plan - Plan Referrals: Eduardo Hernandez Jr, MD [Primary Care Provider] - (office will call patient at home with appointment date and time at the beginning of next week.)
[2016-09-25] MEDS ORDERED: D5% in Water 1,000 ML IV PRN (13:24)
[2016-09-25] MEDS ORDERED: Ipratropium/Albuterol Neb 3 ML IH PRN (13:24)
[2016-09-25] MEDS ORDERED: Ondansetron ODT 4 MG TAB.RAPDIS SL PRN (13:24)
[2016-09-25] MEDS ORDERED: Naloxone 0.4 MG/ML INJ IVP PRN (13:24)
[2016-09-25] MEDS ORDERED: Dextrose Gel 15 GM PO PRN ×2 (13:24)
[2016-09-25] MEDS ORDERED: *HR* HYDROcodone/Acet 5/325 mg TABLET PO PRN (13:24)
[2016-09-25] MEDS ORDERED: Fluticasone Propionate Nasal 50 MCG/SPRAY BOTTLE NS PRN (13:24)
[2016-09-25] MEDS ORDERED: *HR* Metoprolol 5 MG/5 ML VIAL IVP PRN (13:24)
[2016-09-25] MEDS ORDERED: *HR* Dextrose 50 % in Water (Syg) 50 ML SYRINGE IVP PRN (13:24)
--- NOTE | 2016-09-25 14:55 | Electrocardiograph Report ---
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
[2016-09-25] MEDS ORDERED: *HR* Heparin 5,000 UNIT/ML VIAL SQ SCH (15:00)
--- NOTE | 2016-09-25 15:05 | Electrocardiograph Report ---
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
[2016-09-25] MEDS: Furosemide 20 MG/2 ML VIAL IVP SCH (16:27)
[2016-09-25] MEDS: Vancomycin 1,000 MG in D5% in Water 250 ML IVPB SCH (16:28)
[2016-09-25] MEDS: MethylPREDNISolone 40 MG/ML VIAL IVP SCH (17:48)
[2016-09-25] MEDS: ALPRAZolam 0.25 MG TABLET PO SCH (21:36)
--- NOTE | 2016-09-25 22:03 | Pulmonology Progress Note ---
Date of Encounter: 09/25/16 Time of Encounter: 08:10 Assessment and Plan (1) Acute and chronic respiratory failure Current Visit: No Status: Acute This is multifactorial and explained to family at the bedside for now NIV and treat underlying conditions such as diastolic heart failure etc. She understand that and start to wean off FIO2 on BiPAP and trial of high flow O2. Encourage IS and diuresis as much as possible. Overall poor prognosis. Qualifiers: Respiratory failure complication: hypoxia and hypercapnia Qualified Code(s) : J96.21 - Acute and chronic respiratory failure with hypoxia; J96.22 - Acute and chronic respiratory failure with hypercapnia (2) Obesity hypoventilation syndrome Current Visit: Yes Status: Chronic NIV Subjective Principal diagnosis: Acute chronic respiratory failure with hypoxia hypercapnia Interval history: Patient remain on BiPPA and she denies any complaints Objective PUL Vital signs: Last Vital Signs Temp 99.5 F 09/25/16 20:58 Pulse 88 09/25/16 20:58 Resp 33 09/25/16 20:58 BP 133/49 09/25/16 20:58 Pulse Ox 94 L 09/25/16 20:58 General appearance: no acute distress Eyes: nonicteric ENT: oropharynx dry Mallampati (class): 4 Neck: supple, no lymphadenopathy Effort: normal Auscultation: bilateral: diminished breath sounds Cardiovascular: irregular rhythm Gastrointestinal: normoactive bowel sounds, soft Extremities: edema normal mental status, non-focal exam mood appropriate Ventilator Settings Ventilator Settings: BiPAP and FIO2 85% Results - Laboratory Findings CBC and BMP: 09/25/16 06:16 09/25/16 06:16 ABG ABG pH 7.40 pH Units (7.32-7.45) 09/23/16 04:30 ABG pCO2 50 mmHg (35-45) H 09/23/16 04:30 ABG pO2 65 mmHg (85-104) L 09/23/16 04:30 ABG O2 Saturation 92 % (95-98) L 09/23/16 04:30 PT/INR, D-dimer PT 12.1 Seconds (9.4-12.1) 09/22/16 00:47 D-Dimer 1410 ng/mLFEU (0-500) H 09/21/16 23:13 Abnormal lab findings: Abnormal lab results WBC 3.1 K/mcL (4.3-11.1) L 09/25/16 06:16 RDW 14.9 % (11.5-14.5) H 09/25/16 06:16 Plt Count 97 K/mcL (140-400) L 09/25/16 06:16 Platelet Estimate Slight Decrease (Normal) L 09/25/16 06:16 APTT 108.7 Seconds (26.0-36.0) H 09/22/16 10:25 D-Dimer 1410 ng/mLFEU (0-500) H 09/21/16 23:13 Heparin Anti-Xa, Unfract 1.45 IU/mL (0.30-0.70) H* 09/22/16 08:14 ABG pCO2 50 mmHg (35-45) H 09/23/16 04:30 ABG pO2 65 mmHg (85-104) L 09/23/16 04:30 ABG HCO3 31.0 mEQ/L (21-27) H 09/23/16 04:30 ABG Total CO2 32.5 mEq/L (20-26) H 09/23/16 04:30 ABG O2 Saturation 92 % (95-98) L 09/23/16 04:30 ABG Base Excess 5.2 mEq/L (-2.0 to 3.0) H 09/23/16 04:30 BUN 25 mg/dL (7-20) H 09/25/16 06:16 Creatinine 1.31 mg/dL (0.57-1.11) H 09/25/16 06:16 Est GFR ( Amer) 49 (> 60) L 09/25/16 06:16 Est GFR (Non-Af Amer) 40 (> 60) L 09/25/16 06:16 Glucose 200 mg/dL (70-99) H 09/25/16 06:16 POC Glucose 173 (58-89) H 09/25/16 11:41 Troponin I 0.04 ng/mL (0-0.03) H* 09/22/16 06:29 B-Natriuretic Peptide 156 pg/mL (0-100) H 09/21/16 19:23 Urine Clarity Cloudy (Clear) A 09/22/16 12:25 Urine Glucose (UA) >=1000 mg/dL (Normal) H 09/22/16 12:25 Ur Leukocyte Esterase Small (Negative) H 09/22/16 12:25 Urine Microscopic WBC 5-15 per hpf (0-3) H 09/22/16 12:25 Ur Squamous Epith Cells Many per lpf (None-Few) H 09/22/16 12:25 Urine Bacteria Many per hpf (None-Few) H 09/22/16 12:25 - Microbiology Findings Microbiology Findings: Microbiology, Last 48 Hours 09/23/16 09:00 Sputum Culture - Final Sputum - Clinical Findings Intake & Output: Intake & Output 09/25/16 09/25/16 09/25/16 07:59 15:59 23:59 Intake Total 160 / 160 50 / 50 300 / 300 Output Total 1000 / 1000 400 / 400 500 / 500 Balance -840 / -840 -350 / -350 -200 / -200 Weight 128.6 kg Consult Discharge Plan - Plan Referrals: Eduardo Hernandez Jr, MD [Primary Care Provider] - (office will call patient at home with appointment date and time at the beginning of next week.)
[2016-09-26] MEDS: Piperacillin/Tazobactam 3.375 GM in D5% in Water (Mini-Bag+) 100 ML IVPB SCH ×3 (00:05→16:22)
[2016-09-26] MEDS: Ipratropium/Albuterol Neb 3 ML IH SCH ×7 (00:07→22:49)
[2016-09-26] MEDS ORDERED: Levofloxacin 750 MG/150 ML 750 MG/150 ML BAG IVPB SCH (04:00)
[2016-09-26 04:02] LABS: ABG Base Excess 5.1 mEq/L (-2.0 to 3.0); ABG HCO3 33.8 mEQ/L (21-27); ABG Oxygen Saturation 94 % (95-98); ABG PH 7.28 pH Units (7.32-7.45); ABG PO2 81 mmHg (85-104)
[2016-09-26 04:07] LABS: Blood Gas FiO2 75 %
[2016-09-26 04:08] LABS: ABG PCO2 72 mmHg (35-45)
[2016-09-26] MEDS: Vancomycin 1,000 MG in D5% in Water 250 ML IVPB SCH ×2 (05:01→16:24)
[2016-09-26 05:43] LABS: Calcium 8.4 mg/dL (8.6-10.8); Magnesium 1.5 mg/dL (1.6-2.6); Potassium 4.5 mEq/L (3.5-4.5)
[2016-09-26 05:44] LABS: Red Cell Distribution Width 14.7 % (11.5-14.5)
[2016-09-26 05:45] LABS: Hematocrit 33.5 % (35.3-44.9); Hemoglobin 10.7 g/dL (11.5-15.4); Immature Platelets 3.3 % (1.1-6.1); Mean Corpuscular HGB Conc 31.9 g/dL (31.6-35.5); Mean Corpuscular Hemoglobin 30.2 pg (28.0-33.3); Mean Corpuscular Volume 94.6 fL (83.0-100.0); Mean Platelet Volume 10.6 fL (9.4-12.4); Monocytes # 0.1 K/mcL (0.0-1.3); Red Blood Count 3.54 M/mcL (3.82-4.97)
[2016-09-26 06:04] LABS: Platelet Count 87 K/mcL (140-400)
[2016-09-26] MEDS: MethylPREDNISolone 40 MG/ML VIAL IVP SCH ×2 (06:27→16:21)
[2016-09-26 06:35] LABS: Lymphocytes # 0.2 K/mcL (0.6-4.6); Neutrophils # 1.9 K/mcL (1.6-8.9); Platelet Estimate Decreased (Normal)
[2016-09-26] MEDS: Budesonide Neb 0.5 MG/2 ML IH SCH ×2 (07:48→20:34)
[2016-09-26] MEDS: Insulin LISPRO 300 UNITS/3 ML VIAL SQ SCH ×4 (08:01→21:13)
[2016-09-26] MEDS: amLODIPine 5 MG TABLET PO SCH (08:05)
[2016-09-26] MEDS: Metoprolol 100 MG TABLET PO SCH ×2 (08:05→21:09)
[2016-09-26] MEDS: Cholecalciferol (D-3) 1,000 UNIT TABLET PO SCH (08:05)
[2016-09-26] MEDS: Vitamin B Complex/Vit C/Vit E 1 EACH TABLET PO SCH (08:05)
[2016-09-26] MEDS ORDERED: Magnesium Sulfate 1 GM in D5% in Water 100 ML IVPB ONE (08:06)
[2016-09-26] MEDS: Aspirin Enteric Coated 81 MG Tablet PO SCH (08:06)
[2016-09-26] MEDS: Acetaminophen 325 MG TABLET PO PRN (08:07)
[2016-09-26] MEDS: Ascorbic Acid 500 MG TABLET PO SCH (08:07)
[2016-09-26] MEDS: ALPRAZolam 0.25 MG TABLET PO SCH ×2 (08:07→21:09)
[2016-09-26] MEDS: Furosemide 20 MG/2 ML VIAL IVP SCH ×2 (08:55→16:22)
[2016-09-26] MEDS: Nystatin POWDER 30 GM BOTTLE TP SCH ×2 (08:56→21:37)
[2016-09-26] MEDS ORDERED: ALPRAZolam 0.25 MG TABLET PO PRN (09:00)
--- NOTE | 2016-09-26 09:10 | Internal Med Progress Note ---
Date of Encounter: 09/26/16 Time of Encounter: 09:08 - Assessment and plan (1) Acute and chronic respiratory failure Current Visit: No Status: Acute Assessment and plan: Likely secondary to COPD exacerbation, CHF decompensation, [place], PNA Will continue bipap support as needed Continue Steroid and bronchodilator support Continue IV antibiotics (Vancomycin and Zosyn)-Pharmacy to renally dose antibiotics and follow up Vancomycin Trough Patient encouraged to get out of bed to chair with assistance (at baseline, patient is able to ambulate with a cane at home) Pulmonary consultation appreciated Bipap study overnight Qualifiers: Respiratory failure complication: hypoxia and hypercapnia Qualified Code(s) : J96.21 - Acute and chronic respiratory failure with hypoxia; J96.22 - Acute and chronic respiratory failure with hypercapnia (2) Acute exacerbation of chronic obstructive airways disease Current Visit: No Status: Acute Assessment and plan: Plan as listed above (3) Acute diastolic heart failure Current Visit: Yes Status: Acute Assessment and plan: Continue Diuretic Therapy Noted to have significant urinary output after peterson cath placement continue to monitor Intake/Output Daily weights Fluid restriction (4) Atrial fibrillation with RVR Current Visit: Yes Status: Acute Assessment and plan: Rate controlled with Cardizem gtt Will switch to Cardizem PO today and titrate off cardizem gtt. Holding anticoagulation at this time due to recent episode of bleeding (5) Chronic pulmonary embolism Current Visit: Yes Status: Acute Assessment and plan: Likely secondary to elevated hypertension and cor pulmonale. Patient was started on Eliquis on 09/22 but noted to have conjunctival hemorrhage of left eye and rectal bleeding due to which Eliquis was stopped Patient will benefit from outpatient GI work up Noted to have decrease in platelet count due to which Heparin SQ was placed on hold Will closely monitor PLT at this time. Qualifiers: Pulmonary embolism type: other Acute cor pulmonale presence: without acute cor pulmonale Qualified Code(s): I27.82 - Chronic pulmonary embolism (6) Pneumonia Current Visit: Yes Status: Acute Assessment and plan: Will continue IV abx (Vancomycin and Zosyn) Discontinued Levaquin Qualifiers: Pneumonia type: due to unspecified organism Laterality: bilateral Lung location: lower lobe of lung Qualified Code(s): J18.9 - Pneumonia, unspecified organism (7) Rectal bleeding Current Visit: Yes Status: Acute Assessment and plan: Noted to have Bloody stools when she was initially started on Eliquis No recurrent episodes reported Drop in H&H noted, however no active bleeding reported Will continue to closely monitor If anemia worsens, will transfuse as needed and consider GI evaluation (8) CKD (chronic kidney disease) stage 3, GFR 30-59 ml/min Current Visit: No Status: Chronic Assessment and plan: Kidney function worsened from previous day Likely secondary to diuretic therapy HOwever given the acute CHF decompensation, will continue with diuresis at this time continue to monitor kidney function (9) Hypertension Current Visit: No Status: Chronic Assessment and plan: BP within acceptable range continue home medications Qualifiers: Hypertension type: essential hypertension Qualified Code(s): I10 - Essential (primary) hypertension (10) Type 2 diabetes mellitus Current Visit: No Status: Chronic Assessment and plan: Patient noted to be hyperglycemic as she has been refusing her insulin therapy Patient counselled about medication compliance continue to monitor fingerstick and blood glucose continue sliding scale insulin algorithm Qualifiers: Diabetes mellitus complication status: with hyperglycemia Diabetes mellitus moth exterminator insulin use: without moth exterminator use Qualified Code(s): E11.65 - Type 2 diabetes mellitus with hyperglycemia (11) Morbid obesity with BMI of 45.0-49.9, adult Current Visit: No Status: Chronic (12) DVT prophylaxis Current Visit: No Status: Acute Assessment and plan: IPCD - Subjective Interval history: Patient seen and examined with family present at bedside. Pt reported of having difficulty with voiding due to which peterson catheter was placed. After placement of peterson cath, 850ml of urine output was noted. Patient reports of breathing comfortably with bipap and daughter reports that the patient has been on 24/7 home oxygen therapy for the last month. Patient has not been able to tolerate PO meals due to drop in O2 saturation when placed on nasal cannula. - Constitutional Vitals: Temp Pulse Resp BP Pulse Ox 97.6 F 73 20 140/70 73 L 09/26/16 07:14 09/26/16 08:03 09/26/16 07:14 09/26/16 07:14 09/26/16 08:03 General appearance: Present: cooperative, A&O X 3, morbidly obese, pleasant, no acute distress, answers questions appropriately - Head Head exam: Present: atraumatic, normocephalic - Eye Eye exam: Present: normal appearance, conjuntiva pink, sclera anicteric - Respiratory Respiratory exam: Present: decreased breath sounds. Absent: wheezes - Cardiovascular Cardiovascular exam: Present: RRR, +S1, +S2 - GI/Abdominal GI/Abdominal exam: Present: distended (obese), normal bowel sounds, soft. Absent: tenderness - Additional comments: Peterson catheter in place - Extremities Exam Extremities exam: Present: warm, radial pulses palpable and symetrical ( bilateral lower extremity pedal edema ). Absent: calf tenderness, tenderness - Neurological Exam Neurological exam: Present: alert, oriented X3 - Psychiatric Psychiatric exam: Present: normal affect, normal mood Internal Medicine: Result - Labs CBC & Chem 7: 09/26/16 05:10 09/26/16 05:10 Labs: Short CBC 09/26/16 Range/Units 05:10 WBC 2.2 L (4.3-11.1) K/mcL Hgb 10.7 L (11.5-15.4) g/dL Hct 33.5 L (35.3-44.9) % Plt Count 87 L (140-400) K/mcL Neutrophils # 1.9 (1.6-8.9) K/mcL BMP 09/26/16 05:10 Sodium 136 Potassium 4.5 Chloride 98 Carbon Dioxide 28 BUN 31 H Creatinine 1.39 H Glucose 301 H Calcium 8.4 L - ABG Interpretation ABG results: ABG ABG pH 7.28 pH Units (7.32-7.45) L 09/26/16 03:49 ABG pCO2 72 mmHg (35-45) H* 09/26/16 03:49 ABG pO2 81 mmHg (85-104) L 09/26/16 03:49 ABG O2 Saturation 94 % (95-98) L 09/26/16 03:49 PT/INR, D-dimer PT 12.1 Seconds (9.4-12.1) 09/22/16 00:47 D-Dimer 1410 ng/mLFEU (0-500) H 09/21/16 23:13 Consult Discharge Plan - Plan Referrals: Eduardo Hernandez Jr, MD [Primary Care Provider] - (office will call patient at home with appointment date and time at the beginning of next week.)
[2016-09-26 10:23] LABS: ABG Base Excess 2.8 mEq/L (-2.0 to 3.0); ABG HCO3 30.2 mEQ/L (21-27); ABG Oxygen Saturation 90 % (95-98); ABG PCO2 60 mmHg (35-45); ABG PH 7.31 pH Units (7.32-7.45); ABG PO2 65 mmHg (85-104)
[2016-09-26 10:25] LABS: Blood Gas FiO2 55 %
--- NOTE | 2016-09-26 13:38 | Pulmonology Progress Note ---
Date of Encounter: 09/26/16 Time of Encounter: 08:15 Assessment and Plan (1) Acute and chronic respiratory failure Current Visit: No Status: Acute This is multifactorial and explained to family at the bedside for now NIV and treat underlying conditions such as diastolic heart failure etc. She understand that and start to wean off FIO2 on BiPAP and trial of high flow O2. Encourage IS and diuresis as much as possible. Overall poor prognosis. 09/26 Changed AVAPS FIO2 to 55% to keep SPO2 around 90% and increased EPAP to 9 cwp. Diuresis as much as possible. Qualifiers: Respiratory failure complication: hypoxia and hypercapnia Qualified Code(s) : J96.21 - Acute and chronic respiratory failure with hypoxia; J96.22 - Acute and chronic respiratory failure with hypercapnia (2) Obesity hypoventilation syndrome Current Visit: Yes Status: Chronic NIV and discussed with daughter at bed side. Mobilization is very important. Subjective Principal diagnosis: Acute chronic respiratory failure with hypoxia hypercapnia Interval history: Patient remain on AVAPS and she denies any complaints. She was able to sleep better last night Objective PUL Vital signs: Last Vital Signs Temp 97.7 F 09/26/16 11:00 Pulse 67 09/26/16 12:55 Resp 16 09/26/16 11:43 BP 122/56 09/26/16 11:00 Pulse Ox 91 L 09/26/16 11:43 General appearance: no acute distress ENT: oropharynx dry Mallampati (class): 4 Effort: normal Auscultation: bilateral: diminished breath sounds Cardiovascular: irregular rhythm Gastrointestinal: normoactive bowel sounds Extremities: edema normal mental status, non-focal exam mood appropriate Ventilator Settings Ventilator Settings: Ventilator Settings, Last 8 Hours Ventilator Tidal Volume 500 Setting Ventilator Respiratory Rate 8 Setting Results - Laboratory Findings CBC and BMP: 09/26/16 05:10 09/26/16 05:10 ABG ABG pH 7.31 pH Units (7.32-7.45) L 09/26/16 10:06 ABG pCO2 60 mmHg (35-45) H 09/26/16 10:06 ABG pO2 65 mmHg (85-104) L 09/26/16 10:06 ABG O2 Saturation 90 % (95-98) L 09/26/16 10:06 PT/INR, D-dimer PT 12.1 Seconds (9.4-12.1) 09/22/16 00:47 D-Dimer 1410 ng/mLFEU (0-500) H 09/21/16 23:13 Abnormal lab findings: Abnormal lab results WBC 2.2 K/mcL (4.3-11.1) L 09/26/16 05:10 RBC 3.54 M/mcL (3.82-4.97) L 09/26/16 05:10 Hgb 10.7 g/dL (11.5-15.4) L 09/26/16 05:10 Hct 33.5 % (35.3-44.9) L 09/26/16 05:10 RDW 14.7 % (11.5-14.5) H 09/26/16 05:10 Plt Count 87 K/mcL (140-400) L 09/26/16 05:10 Lymphocytes # 0.2 K/mcL (0.6-4.6) L 09/26/16 05:10 Platelet Estimate Decreased (Normal) L 09/26/16 05:10 APTT 108.7 Seconds (26.0-36.0) H 09/22/16 10:25 D-Dimer 1410 ng/mLFEU (0-500) H 09/21/16 23:13 Heparin Anti-Xa, Unfract 1.45 IU/mL (0.30-0.70) H* 09/22/16 08:14 ABG pH 7.31 pH Units (7.32-7.45) L 09/26/16 10:06 ABG pCO2 60 mmHg (35-45) H 09/26/16 10:06 ABG pO2 65 mmHg (85-104) L 09/26/16 10:06 ABG HCO3 30.2 mEQ/L (21-27) H 09/26/16 10:06 ABG Total CO2 32.0 mEq/L (20-26) H 09/26/16 10:06 ABG O2 Saturation 90 % (95-98) L 09/26/16 10:06 BUN 31 mg/dL (7-20) H 09/26/16 05:10 Creatinine 1.39 mg/dL (0.57-1.11) H 09/26/16 05:10 Est GFR ( Amer) 45 (> 60) L 09/26/16 05:10 Est GFR (Non-Af Amer) 37 (> 60) L 09/26/16 05:10 Glucose 301 mg/dL (70-99) H 09/26/16 05:10 POC Glucose 320 (58-89) H 09/26/16 07:16 Calcium 8.4 mg/dL (8.6-10.8) L 09/26/16 05:10 Magnesium 1.5 mg/dL (1.6-2.6) L 09/26/16 05:10 Troponin I 0.04 ng/mL (0-0.03) H* 09/22/16 06:29 B-Natriuretic Peptide 156 pg/mL (0-100) H 09/21/16 19:23 Urine Clarity Cloudy (Clear) A 09/22/16 12:25 Urine Glucose (UA) >=1000 mg/dL (Normal) H 09/22/16 12:25 Ur Leukocyte Esterase Small (Negative) H 09/22/16 12:25 Urine Microscopic WBC 5-15 per hpf (0-3) H 09/22/16 12:25 Ur Squamous Epith Cells Many per lpf (None-Few) H 09/22/16 12:25 Urine Bacteria Many per hpf (None-Few) H 09/22/16 12:25 - Microbiology Findings Microbiology Findings: Microbiology, Last 48 Hours 09/24/16 07:29 Blood Culture - Preliminary Peripheral Venipuncture No growth. 09/24/16 07:29 Blood Culture - Preliminary Peripheral Venipuncture No growth. 09/23/16 09:00 Sputum Culture - Final Sputum - Clinical Findings Intake & Output: Intake & Output 09/25/16 09/26/16 09/26/16 23:59 07:59 15:59 Intake Total 825 / 825 710 / 710 330 / 330 Output Total 800 / 800 0 / 0 850 / 850 Balance 710 / 710 -520 / -520 Weight 129.9 kg Consult Discharge Plan - Plan Referrals: Eduardo Hernandez Jr, MD [Primary Care Provider] - (office will call patient at home with appointment date and time at the beginning of next week.)
[2016-09-26] MEDS ORDERED: D5% in Water 1,000 ML IV PRN (16:52)
[2016-09-26] MEDS ORDERED: *HR* Dextrose 50 % in Water (Syg) 50 ML SYRINGE IVP PRN (16:52)
[2016-09-26] MEDS ORDERED: Dextrose Gel 15 GM PO PRN ×2 (16:52)
[2016-09-26 17:27] LABS: Calcium 8.7 mg/dL (8.6-10.8)
[2016-09-26] MEDS ORDERED: Insulin DETEMIR 100 UNIT/ML X5UNITS SQ SCH (17:45)
[2016-09-26] MEDS ORDERED: Vancomycin 1,000 MG in 0.9 % Sodium Chloride Mini Bag 100 ML IVPB SCH (18:00)
[2016-09-27] MEDS: Piperacillin/Tazobactam 3.375 GM in 0.9 % Sodium Chloride Mini Bag 100 ML IVPB SCH ×4 (00:03→23:23)
[2016-09-27] MEDS: Ipratropium/Albuterol Neb 3 ML IH SCH ×6 (04:05→23:47)
[2016-09-27] MEDS: MethylPREDNISolone 40 MG/ML VIAL IVP SCH ×2 (05:23→16:33)
[2016-09-27 05:27] LABS: Hematocrit 33.6 % (35.3-44.9); Hemoglobin 10.9 g/dL (11.5-15.4); Immature Granulocytes % 1.1 % (0-4); Lymphocytes # 0.5 K/mcL (0.6-4.6); Lymphocytes % 20.5 %; Mean Corpuscular HGB Conc 32.4 g/dL (31.6-35.5); Mean Corpuscular Hemoglobin 29.5 pg (28.0-33.3); Mean Corpuscular Volume 90.8 fL (83.0-100.0); Mean Platelet Volume 10.4 fL (9.4-12.4); Monocytes # 0.2 K/mcL (0.0-1.3); Monocytes % 6.5 %; Neutrophils # 1.9 K/mcL (1.6-8.9); Segmented Neutrophils % 71.9 %
[2016-09-27 05:30] LABS: Platelet Count 88 K/mcL (140-400)
[2016-09-27 05:36] LABS: Calcium 8.7 mg/dL (8.6-10.8); Magnesium 1.9 mg/dL (1.6-2.6); Phosphorous 4.3 mg/dL (2.3-4.7); Potassium 4.4 mEq/L (3.5-4.5)
[2016-09-27 05:59] LABS: Platelet Estimate Decreased (Normal)
[2016-09-27] MEDS: ALPRAZolam 0.25 MG TABLET PO SCH ×2 (07:44→21:01)
[2016-09-27] MEDS: Vitamin B Complex/Vit C/Vit E 1 EACH TABLET PO SCH (07:44)
[2016-09-27] MEDS: Metoprolol 100 MG TABLET PO SCH ×2 (07:44→21:02)
[2016-09-27] MEDS: Cholecalciferol (D-3) 1,000 UNIT TABLET PO SCH (07:44)
[2016-09-27] MEDS: Aspirin Enteric Coated 81 MG Tablet PO SCH (07:44)
[2016-09-27] MEDS: amLODIPine 5 MG TABLET PO SCH (07:44)
[2016-09-27] MEDS: Ascorbic Acid 500 MG TABLET PO SCH (07:45)
[2016-09-27] MEDS: Furosemide 20 MG/2 ML VIAL IVP SCH ×2 (07:45→16:33)
[2016-09-27] MEDS: Nystatin POWDER 30 GM BOTTLE TP SCH ×2 (07:54→21:02)
[2016-09-27] MEDS: Insulin LISPRO 300 UNITS/3 ML VIAL SQ SCH ×7 (08:01→21:01)
[2016-09-27] MEDS: Budesonide Neb 0.5 MG/2 ML IH SCH ×2 (08:07→20:28)
[2016-09-27] MEDS: Insulin DETEMIR 100 UNIT/ML X5UNITS SQ SCH ×2 (09:08→09:10)
--- NOTE | 2016-09-27 09:48 | Pulmonology Progress Note ---
Date of Encounter: 09/27/16 Time of Encounter: 08:05 Assessment and Plan (1) Acute and chronic respiratory failure Current Visit: No Status: Acute This is multifactorial and explained to family at the bedside for now NIV and treat underlying conditions such as diastolic heart failure etc. She understand that and start to wean off FIO2 on BiPAP and trial of high flow O2. Encourage IS and diuresis as much as possible. Overall poor prognosis. 09/26 Changed AVAPS FIO2 to 55% to keep SPO2 around 90% and increased EPAP to 9 cwp. Diuresis as much as possible. 09/27 Patient feels slightly better. To qualify patient for BiPAP at home she will need overnight oximetery. Talked to RT to make sure patient to have it done. Continue NIV. Qualifiers: Respiratory failure complication: hypoxia and hypercapnia Qualified Code(s) : J96.21 - Acute and chronic respiratory failure with hypoxia; J96.22 - Acute and chronic respiratory failure with hypercapnia (2) Obesity hypoventilation syndrome Current Visit: Yes Status: Chronic NIV and discussed with daughter at bed side. Mobilization is very important. 09/27 Talked to family at bedside. Subjective Principal diagnosis: Acute chronic respiratory failure with hypoxia hypercapnia Interval history: Patient remain on AVAPS and she denies any complaints. She was able to sleep better last night 09/27 patient is feeling better and she is on high flow O2 with SPO2 around 89% Objective PUL Vital signs: Last Vital Signs Temp 97.4 F L 09/27/16 07:23 Pulse 74 09/27/16 08:00 Resp 20 09/27/16 08:07 BP 139/59 09/27/16 07:23 Pulse Ox 88 L 09/27/16 08:07 General appearance: no acute distress Eyes: nonicteric Neck: supple Effort: normal Auscultation: bilateral: diminished breath sounds Cardiovascular: regular rate and rhythm Gastrointestinal: normoactive bowel sounds Extremities: edema normal mental status, non-focal exam mood appropriate Results - Laboratory Findings CBC and BMP: 09/27/16 04:55 09/27/16 04:55 ABG ABG pH 7.31 pH Units (7.32-7.45) L 09/26/16 10:06 ABG pCO2 60 mmHg (35-45) H 09/26/16 10:06 ABG pO2 65 mmHg (85-104) L 09/26/16 10:06 ABG O2 Saturation 90 % (95-98) L 09/26/16 10:06 PT/INR, D-dimer PT 12.1 Seconds (9.4-12.1) 09/22/16 00:47 D-Dimer 1410 ng/mLFEU (0-500) H 09/21/16 23:13 Abnormal lab findings: Abnormal lab results WBC 2.6 K/mcL (4.3-11.1) L 09/27/16 04:55 RBC 3.70 M/mcL (3.82-4.97) L 09/27/16 04:55 Hgb 10.9 g/dL (11.5-15.4) L 09/27/16 04:55 Hct 33.6 % (35.3-44.9) L 09/27/16 04:55 Plt Count 88 K/mcL (140-400) L 09/27/16 04:55 Lymphocytes # 0.5 K/mcL (0.6-4.6) L 09/27/16 04:55 Platelet Estimate Decreased (Normal) L 09/27/16 04:55 APTT 108.7 Seconds (26.0-36.0) H 09/22/16 10:25 D-Dimer 1410 ng/mLFEU (0-500) H 09/21/16 23:13 Heparin Anti-Xa, Unfract 1.45 IU/mL (0.30-0.70) H* 09/22/16 08:14 ABG pH 7.31 pH Units (7.32-7.45) L 09/26/16 10:06 ABG pCO2 60 mmHg (35-45) H 09/26/16 10:06 ABG pO2 65 mmHg (85-104) L 09/26/16 10:06 ABG HCO3 30.2 mEQ/L (21-27) H 09/26/16 10:06 ABG Total CO2 32.0 mEq/L (20-26) H 09/26/16 10:06 ABG O2 Saturation 90 % (95-98) L 09/26/16 10:06 Sodium 135 mEq/L (136-145) L 09/27/16 04:55 Chloride 93 mEq/L (98-109) L 09/27/16 04:55 Carbon Dioxide 32 mEq/L (19-29) H 09/27/16 04:55 BUN 46 mg/dL (7-20) H 09/27/16 04:55 Creatinine 1.72 mg/dL (0.57-1.11) H 09/27/16 04:55 Est GFR ( Amer) 36 (> 60) L 09/27/16 04:55 Est GFR (Non-Af Amer) 29 (> 60) L 09/27/16 04:55 BUN/Creatinine Ratio 27 (6-26) H 09/27/16 04:55 Glucose 446 mg/dL (70-99) H 09/27/16 04:55 POC Glucose 504 (58-89) H* 09/26/16 19:52 Calculated Osmolality 311 (280-300) H 09/27/16 04:55 Troponin I 0.04 ng/mL (0-0.03) H* 09/22/16 06:29 B-Natriuretic Peptide 156 pg/mL (0-100) H 09/21/16 19:23 Urine Clarity Cloudy (Clear) A 09/22/16 12:25 Urine Glucose (UA) >=1000 mg/dL (Normal) H 09/22/16 12:25 Ur Leukocyte Esterase Small (Negative) H 09/22/16 12:25 Urine Microscopic WBC 5-15 per hpf (0-3) H 09/22/16 12:25 Ur Squamous Epith Cells Many per lpf (None-Few) H 09/22/16 12:25 Urine Bacteria Many per hpf (None-Few) H 09/22/16 12:25 - Microbiology Findings Microbiology Findings: Microbiology, Last 48 Hours 09/24/16 07:29 Blood Culture - Preliminary Peripheral Venipuncture No growth. 09/24/16 07:29 Blood Culture - Preliminary Peripheral Venipuncture No growth. 09/23/16 09:00 Sputum Culture - Final Sputum - Clinical Findings Intake & Output: Intake & Output 09/26/16 09/27/16 09/27/16 23:59 07:59 15:59 Intake Total 120 / 120 200 / 200 Output Total 900 / 900 775 / 775 Balance -780 / -780 -575 / -575 Weight 128.9 kg Consult Discharge Plan - Plan Referrals: Eduardo Hernandez Jr, MD [Primary Care Provider] - (office will call patient at home with appointment date and time at the beginning of next week.)
--- NOTE | 2016-09-27 11:25 | Electrocardiograph Report ---
[address] [address] Test Date: 2016-09-26 Pat Name: Garima Pollack Department: 110 Room: 2N02 Gender: F [employer]: : 1945 Requested By: Stephanie Radford Order Number: [id number] Reading MD: Aury West Measurements Intervals [place] Rate: 70 P: SC: 0 QRS: 63 QRSD: 92 T: 11 QT: 412 QTc: 433 Interpretive Statements SINUS RHYTHM Electronically Signed On 09-27-2016 11:23:54 EST by Aury West
--- NOTE | 2016-09-27 11:31 | Internal Med Progress Note ---
Date of Encounter: 09/27/16 Time of Encounter: 11:29 - Assessment and plan (1) Acute and chronic respiratory failure Current Visit: No Status: Acute Assessment and plan: Likely secondary to COPD exacerbation, CHF decompensation, CAMILLE, PNA Will continue bipap support as needed Continue Steroid and bronchodilator support Continue IV antibiotics (Vancomycin and Zosyn)-Pharmacy to renally dose antibiotics and follow up Vancomycin Trough Patient encouraged to get out of bed to chair with assistance (at baseline, patient is able to ambulate with a cane at home) Pulmonary consultation appreciated Bipap study overnight Currently saturating well on nasal cannula. Qualifiers: Respiratory failure complication: hypoxia and hypercapnia Qualified Code(s) : J96.21 - Acute and chronic respiratory failure with hypoxia; J96.22 - Acute and chronic respiratory failure with hypercapnia (2) Acute exacerbation of chronic obstructive airways disease Current Visit: No Status: Acute Assessment and plan: Plan as listed above (3) Acute diastolic heart failure Current Visit: Yes Status: Acute Assessment and plan: Continue Diuretic Therapy continue to monitor Intake/Output Daily weights Fluid restriction (4) Atrial fibrillation with RVR Current Visit: Yes Status: Acute Assessment and plan: Rate controlled with PO cardizem and Metoprolol Will continue current therapy Holding anticoagulation at this time due to recent episode of bleeding (5) Chronic pulmonary embolism Current Visit: Yes Status: Acute Assessment and plan: Likely secondary to elevated hypertension and cor pulmonale. Patient was started on Eliquis on 09/22 but noted to have conjunctival hemorrhage of left eye and rectal bleeding due to which Eliquis was stopped Patient will benefit from outpatient GI work up Noted to have decrease in platelet count due to which Heparin SQ was placed on hold Will closely monitor PLT at this time. Qualifiers: Pulmonary embolism type: other Acute cor pulmonale presence: without acute cor pulmonale Qualified Code(s): I27.82 - Chronic pulmonary embolism (6) Pneumonia Current Visit: Yes Status: Acute Assessment and plan: Will continue IV abx (Vancomycin and Zosyn) Discontinued Levaquin Qualifiers: Pneumonia type: due to unspecified organism Laterality: bilateral Lung location: lower lobe of lung Qualified Code(s): J18.9 - Pneumonia, unspecified organism (7) Rectal bleeding Current Visit: Yes Status: Acute Assessment and plan: Noted to have Bloody stools when she was initially started on Eliquis No recurrent episodes reported no active bleeding reported Will continue to closely monitor H&H If anemia worsens, will transfuse as needed and consider GI evaluation (8) CKD (chronic kidney disease) stage 3, GFR 30-59 ml/min Current Visit: No Status: Chronic Assessment and plan: Kidney function improved from previous day Likely secondary to diuretic therapy HOwever given the acute CHF decompensation, will continue with diuresis at this time continue to monitor kidney function (9) Hypertension Current Visit: No Status: Chronic Assessment and plan: BP within acceptable range continue home medications Qualifiers: Hypertension type: essential hypertension Qualified Code(s): I10 - Essential (primary) hypertension (10) Type 2 diabetes mellitus Current Visit: No Status: Chronic Assessment and plan: Patient noted to be hyperglycemic Started basal insulin therapy yesterday evening due to persistent hyperglycemia. Started at 0.2mg/kg insulin as patient is insulin naive. Patient remained hyperglycemic despite insulin therapy, requiring 40units of correctional insulin coverage in addition to the 20units of Levemir Increased Levemir to 40units qdaily added humalog 6units TIDAC continue to monitor fingerstick and blood glucose continue sliding scale insulin algorithm Qualifiers: Diabetes mellitus complication status: with hyperglycemia Diabetes mellitus oil heaterman insulin use: without shelter use Qualified Code(s): E11.65 - Type 2 diabetes mellitus with hyperglycemia (11) Morbid obesity with BMI of 45.0-49.9, adult Current Visit: No Status: Chronic (12) DVT prophylaxis Current Visit: No Status: Acute Assessment and plan: IPCD - Subjective Interval history: Patient seen and examined with family present at bedside. Patient awake and alert. Able to actively participate in conversation. Reports of feeling better. Patient started on ADA diet yesterday and has been noted to have persistently elevated blood glucose. Insulin therapy adjusted accordingly. - Constitutional Vitals: Temp Pulse Resp BP Pulse Ox 97.4 F L 74 20 139/59 88 L 09/27/16 07:23 09/27/16 08:00 09/27/16 08:07 09/27/16 07:23 09/27/16 08:07 General appearance: Present: cooperative, A&O X 3, morbidly obese, pleasant, no acute distress, answers questions appropriately - Head Head exam: Present: atraumatic, normocephalic - Eye Eye exam: Present: normal appearance, conjuntiva pink, sclera anicteric - Respiratory Respiratory exam: Absent: respiratory distress, wheezes - Cardiovascular Cardiovascular exam: Present: RRR, +S1, +S2 - GI/Abdominal GI/Abdominal exam: Present: normal bowel sounds, soft. Absent: tenderness - Extremities Exam Extremities exam: Present: pedal edema, warm, radial pulses palpable and symetrical. Absent: calf tenderness - Neurological Exam Neurological exam: Present: alert, oriented X3 - Psychiatric Psychiatric exam: Present: normal affect, normal mood Internal Medicine: Result - Labs CBC & Chem 7: 09/27/16 04:55 09/27/16 04:55 Labs: Short CBC 09/27/16 Range/Units 04:55 WBC 2.6 L (4.3-11.1) K/mcL Hgb 10.9 L (11.5-15.4) g/dL Hct 33.6 L (35.3-44.9) % Plt Count 88 L (140-400) K/mcL Neutrophils # 1.9 (1.6-8.9) K/mcL BMP 09/26/16 09/27/16 17:07 04:55 Sodium 130 L 135 L Potassium 4.0 4.4 Chloride 91 L 93 L Carbon Dioxide 28 32 H BUN 40 H 46 H Creatinine 1.74 H 1.72 H Glucose 527 H* 446 H Calcium 8.7 8.7 - ABG Interpretation ABG results: ABG ABG pH 7.31 pH Units (7.32-7.45) L 09/26/16 10:06 ABG pCO2 60 mmHg (35-45) H 09/26/16 10:06 ABG pO2 65 mmHg (85-104) L 09/26/16 10:06 ABG O2 Saturation 90 % (95-98) L 09/26/16 10:06 PT/INR, D-dimer PT 12.1 Seconds (9.4-12.1) 09/22/16 00:47 D-Dimer 1410 ng/mLFEU (0-500) H 09/21/16 23:13 Consult Discharge Plan - Plan Referrals: Eduardo Hernandez Jr, MD [Primary Care Provider] - (office will call patient at home with appointment date and time at the beginning of next week.)
[2016-09-27] MEDS: Acetaminophen 325 MG TABLET PO PRN (21:02)
[2016-09-28] MEDS: Ipratropium/Albuterol Neb 3 ML IH SCH ×6 (03:28→23:52)
[2016-09-28 04:36] LABS: Basophils % 0.2 %; Hematocrit 33.5 % (35.3-44.9); Hemoglobin 10.9 g/dL (11.5-15.4); Immature Granulocytes % 2.4 % (0-4); Lymphocytes # 0.9 K/mcL (0.6-4.6); Lymphocytes % 18.6 %; Mean Corpuscular HGB Conc 32.5 g/dL (31.6-35.5); Mean Corpuscular Hemoglobin 29.8 pg (28.0-33.3); Mean Corpuscular Volume 91.5 fL (83.0-100.0); Mean Platelet Volume 10.3 fL (9.4-12.4); Monocytes # 0.3 K/mcL (0.0-1.3); Monocytes % 7.1 %; Neutrophils # 3.4 K/mcL (1.6-8.9); Red Blood Count 3.66 M/mcL (3.82-4.97); Segmented Neutrophils % 71.7 %
[2016-09-28 05:00] LABS: Platelet Count 98 K/mcL (140-400)
[2016-09-28 05:06] LABS: Magnesium 1.9 mg/dL (1.6-2.6); Phosphorous 3.6 mg/dL (2.3-4.7); Potassium 4.6 mEq/L (3.5-4.5)
[2016-09-28 05:19] LABS: Large Platelets Present (Not Present); Platelet Estimate Decreased (Normal); Reactive Lymphocytes Present (Not Present); Toxic Granulation Present (Not Present); Toxic Vacuolation Present (Not Present)
[2016-09-28] MEDS: MethylPREDNISolone 40 MG/ML VIAL IVP SCH ×2 (06:20→17:24)
[2016-09-28] MEDS: Metoprolol 100 MG TABLET PO SCH ×2 (08:23→20:58)
[2016-09-28] MEDS: Cholecalciferol (D-3) 1,000 UNIT TABLET PO SCH (08:23)
[2016-09-28] MEDS: Budesonide Neb 0.5 MG/2 ML IH SCH ×2 (08:24→21:18)
[2016-09-28] MEDS: Aspirin Enteric Coated 81 MG Tablet PO SCH (08:25)
[2016-09-28] MEDS: Ascorbic Acid 500 MG TABLET PO SCH (08:25)
[2016-09-28] MEDS: ALPRAZolam 0.25 MG TABLET PO SCH ×2 (08:26→20:58)
[2016-09-28] MEDS: Vitamin B Complex/Vit C/Vit E 1 EACH TABLET PO SCH (08:26)
[2016-09-28] MEDS: amLODIPine 5 MG TABLET PO SCH (08:27)
[2016-09-28] MEDS: Furosemide 20 MG/2 ML VIAL IVP SCH ×2 (08:28→16:11)
[2016-09-28] MEDS: Insulin LISPRO 300 UNITS/3 ML VIAL SQ SCH ×7 (08:30→20:59)
[2016-09-28] MEDS: Piperacillin/Tazobactam 3.375 GM in 0.9 % Sodium Chloride Mini Bag 100 ML IVPB SCH ×2 (08:37→16:11)
[2016-09-28] MEDS: Nystatin POWDER 30 GM BOTTLE TP SCH ×2 (08:42→20:58)
[2016-09-28] MEDS: Insulin DETEMIR 100 UNIT/ML X5UNITS SQ SCH (08:42)
[2016-09-28] MEDS ORDERED: Insulin DETEMIR 100 UNIT/ML X5UNITS SQ ONE (09:17)
[2016-09-28] MEDS: Acetaminophen 325 MG TABLET PO PRN (09:32)
--- NOTE | 2016-09-28 10:54 | Internal Med Progress Note ---
Date of Encounter: 09/28/16 Time of Encounter: 10:51 - Assessment and plan (1) Acute and chronic respiratory failure Current Visit: No Status: Acute Assessment and plan: Likely secondary to COPD exacerbation, CHF decompensation, CAMILLE, PNA Will continue bipap support as needed Continue Steroid and bronchodilator support Continue IV antibiotics (Vancomycin and Zosyn)-Pharmacy to renally dose antibiotics and follow up Vancomycin Trough Patient encouraged to get out of bed to chair with assistance (at baseline, patient is able to ambulate with a cane at home) Pulmonary consultation appreciated Patient qualifies for home bipap support Currently saturating well on nasal cannula. Awaiting finalization of blood cultures, will likely switch to PO Levaquin on discharge to complete therapy for a total of 7days. Qualifiers: Respiratory failure complication: hypoxia and hypercapnia Qualified Code(s) : J96.21 - Acute and chronic respiratory failure with hypoxia; J96.22 - Acute and chronic respiratory failure with hypercapnia (2) Acute exacerbation of chronic obstructive airways disease Current Visit: No Status: Acute Assessment and plan: Plan as listed above (3) Acute diastolic heart failure Current Visit: Yes Status: Acute Assessment and plan: Continue Diuretic Therapy continue to monitor Intake/Output Daily weights Fluid restriction (4) Atrial fibrillation with RVR Current Visit: Yes Status: Acute Assessment and plan: Rate controlled with PO cardizem and Metoprolol Will continue current therapy Holding anticoagulation at this time due to recent episode of bleeding (5) Chronic pulmonary embolism Current Visit: Yes Status: Acute Assessment and plan: Likely secondary to elevated hypertension and cor pulmonale. Patient was started on Eliquis on 09/22 but noted to have conjunctival hemorrhage of left eye and rectal bleeding due to which Eliquis was stopped Patient will benefit from outpatient GI work up Noted to have decrease in platelet count due to which Heparin SQ was placed on hold Will closely monitor PLT at this time. Plt count improved from previous day Qualifiers: Pulmonary embolism type: other Acute cor pulmonale presence: without acute cor pulmonale Qualified Code(s): I27.82 - Chronic pulmonary embolism (6) Pneumonia Current Visit: Yes Status: Acute Assessment and plan: Will continue IV abx (Vancomycin and Zosyn) will switch to Levaquin PO on discharge to complete therapy for 7 days Qualifiers: Pneumonia type: due to unspecified organism Laterality: bilateral Lung location: lower lobe of lung Qualified Code(s): J18.9 - Pneumonia, unspecified organism (7) Rectal bleeding Current Visit: Yes Status: Acute Assessment and plan: Noted to have Bloody stools when she was initially started on Eliquis No recurrent episodes reported no active bleeding reported Will continue to closely monitor H&H H&H stable at this time If anemia worsens, will transfuse as needed and consider GI evaluation (8) CKD (chronic kidney disease) stage 3, GFR 30-59 ml/min Current Visit: No Status: Chronic Assessment and plan: Kidney function improved from previous day Likely secondary to diuretic therapy HOwever given the acute CHF decompensation, will continue with diuresis at this time Kidney function has plateaued at this point, will continue to monitor. (9) Hypertension Current Visit: No Status: Chronic Assessment and plan: BP within acceptable range continue home medications Qualifiers: Hypertension type: essential hypertension Qualified Code(s): I10 - Essential (primary) hypertension (10) Type 2 diabetes mellitus Current Visit: No Status: Chronic Assessment and plan: Patient noted to be hyperglycemic Started basal insulin therapy yesterday evening due to persistent hyperglycemia. Started at 0.2mg/kg insulin as patient is insulin naive. Patient remained hyperglycemic despite insulin therapy, requiring 60units of correctional insulin coverage in addition to the 40units of Levemir Increased Levemir to 70units qdaily Increased humalog 16units TIDAC continue to monitor fingerstick and blood glucose continue sliding scale insulin algorithm If hyperglycemia persists, patient may need insulin drip Qualifiers: Diabetes mellitus complication status: with hyperglycemia Diabetes mellitus mcfp insulin use: without mcfp use Qualified Code(s): E11.65 - Type 2 diabetes mellitus with hyperglycemia (11) Morbid obesity with BMI of 45.0-49.9, adult Current Visit: No Status: Chronic (12) DVT prophylaxis Current Visit: No Status: Acute Assessment and plan: IPCD - Subjective Interval history: Patient seen and examined with family present at bedside. Patient resting in bed , saturating well on nasal cannula. Noted to have persistent hyperglycemia despite insulin therapy. Will adjust insulin coverage accordingly - Constitutional Vitals: Temp Pulse Resp BP Pulse Ox 97.7 F 79 20 149/94 95 09/28/16 08:19 09/28/16 08:19 09/28/16 08:19 09/28/16 08:19 09/28/16 08:19 General appearance: Present: cooperative, A&O X 3, morbidly obese, pleasant, no acute distress, answers questions appropriately - Head Head exam: Present: atraumatic, normocephalic - Eye Eye exam: Present: normal appearance, conjuntiva pink, sclera anicteric - Respiratory Respiratory exam: Absent: respiratory distress, wheezes - Cardiovascular Cardiovascular exam: Present: RRR, +S1, +S2 - GI/Abdominal GI/Abdominal exam: Present: normal bowel sounds, soft. Absent: tenderness - Extremities Exam Extremities exam: Present: pedal edema, warm, radial pulses palpable and symetrical. Absent: calf tenderness - Neurological Exam Neurological exam: Present: alert, oriented X3 - Psychiatric Psychiatric exam: Present: normal affect, normal mood Internal Medicine: Result - Labs CBC & Chem 7: 09/28/16 04:20 09/28/16 04:20 Labs: Short CBC 09/28/16 Range/Units 04:20 WBC 4.7 D (4.3-11.1) K/mcL Hgb 10.9 L (11.5-15.4) g/dL Hct 33.5 L (35.3-44.9) % Plt Count 98 L (140-400) K/mcL Neutrophils # 3.4 (1.6-8.9) K/mcL BMP 09/28/16 04:20 Sodium 136 Potassium 4.6 H Chloride 96 L Carbon Dioxide 29 BUN 60 H D Creatinine 1.75 H Glucose 445 H Calcium 9.0 - ABG Interpretation ABG results: ABG ABG pH 7.31 pH Units (7.32-7.45) L 09/26/16 10:06 ABG pCO2 60 mmHg (35-45) H 09/26/16 10:06 ABG pO2 65 mmHg (85-104) L 09/26/16 10:06 ABG O2 Saturation 90 % (95-98) L 09/26/16 10:06 PT/INR, D-dimer PT 12.1 Seconds (9.4-12.1) 09/22/16 00:47 D-Dimer 1410 ng/mLFEU (0-500) H 09/21/16 23:13 Consult Discharge Plan - Plan Referrals: Eduardo Hernandez Jr, MD [Primary Care Provider] - (office will call patient at home with appointment date and time at the beginning of next week.)
[2016-09-28] MEDS ORDERED: Insulin Regular, Human 100 UNIT/ML SQ ONE (13:35)
--- NOTE | 2016-09-28 16:43 | Pulmonology Progress Note ---
Date of Encounter: 09/28/16 Time of Encounter: 08:30 Assessment and Plan (1) Acute and chronic respiratory failure Current Visit: No Status: Acute This is multifactorial and explained to family at the bedside for now NIV and treat underlying conditions such as diastolic heart failure etc. She understand that and start to wean off FIO2 on BiPAP and trial of high flow O2. Encourage IS and diuresis as much as possible. Overall poor prognosis. 09/26 Changed AVAPS FIO2 to 55% to keep SPO2 around 90% and increased EPAP to 9 cwp. Diuresis as much as possible. 09/27 Patient feels slightly better. To qualify patient for BiPAP at home she will need overnight oximetery. Talked to RT to make sure patient to have it done. Continue NIV. 09/28 patient is qualified for NIV and discussed with daughter at the bedside. Patient will need to have sleep study and titration as outpatient. Qualifiers: Respiratory failure complication: hypoxia and hypercapnia Qualified Code(s) : J96.21 - Acute and chronic respiratory failure with hypoxia; J96.22 - Acute and chronic respiratory failure with hypercapnia (2) Obesity hypoventilation syndrome Current Visit: Yes Status: Chronic NIV and discussed with daughter at bed side. Mobilization is very important. 09/27 Talked to family at bedside. 09/28 NIV and patient is tolerating high flow O2 Subjective Principal diagnosis: Acute chronic respiratory failure with hypoxia hypercapnia Interval history: Patient remain on AVAPS and she denies any complaints. She was able to sleep better last night 09/27 patient is feeling better and she is on high flow O2 with SPO2 around 89% 09/28 Patient is feeling better and she is qualified for NIV Objective PUL Vital signs: Last Vital Signs Temp 97.2 F L 09/28/16 16:37 Pulse 77 09/28/16 16:37 Resp 16 09/28/16 16:37 BP 170/68 09/28/16 16:37 Pulse Ox 88 L 09/28/16 16:37 General appearance: no acute distress ENT: oropharynx moist Mallampati (class): 4 Neck: supple Effort: normal Auscultation: bilateral: diminished breath sounds Cardiovascular: regular rate and rhythm Gastrointestinal: normoactive bowel sounds Extremities: edema normal mental status, non-focal exam mood appropriate Results - Laboratory Findings CBC and BMP: 09/28/16 04:20 09/28/16 04:20 ABG ABG pH 7.31 pH Units (7.32-7.45) L 09/26/16 10:06 ABG pCO2 60 mmHg (35-45) H 09/26/16 10:06 ABG pO2 65 mmHg (85-104) L 09/26/16 10:06 ABG O2 Saturation 90 % (95-98) L 09/26/16 10:06 PT/INR, D-dimer PT 12.1 Seconds (9.4-12.1) 09/22/16 00:47 D-Dimer 1410 ng/mLFEU (0-500) H 09/21/16 23:13 Abnormal lab findings: Abnormal lab results RBC 3.66 M/mcL (3.82-4.97) L 09/28/16 04:20 Hgb 10.9 g/dL (11.5-15.4) L 09/28/16 04:20 Hct 33.5 % (35.3-44.9) L 09/28/16 04:20 Plt Count 98 K/mcL (140-400) L 09/28/16 04:20 Reactive Lymphocytes Present (Not Present) A 09/28/16 04:20 Toxic Granulation Present (Not Present) A 09/28/16 04:20 Toxic Vacuolation Present (Not Present) A 09/28/16 04:20 Platelet Estimate Decreased (Normal) L 09/28/16 04:20 Large Platelets Present (Not Present) A 09/28/16 04:20 APTT 108.7 Seconds (26.0-36.0) H 09/22/16 10:25 D-Dimer 1410 ng/mLFEU (0-500) H 09/21/16 23:13 Heparin Anti-Xa, Unfract 1.45 IU/mL (0.30-0.70) H* 09/22/16 08:14 ABG pH 7.31 pH Units (7.32-7.45) L 09/26/16 10:06 ABG pCO2 60 mmHg (35-45) H 09/26/16 10:06 ABG pO2 65 mmHg (85-104) L 09/26/16 10:06 ABG HCO3 30.2 mEQ/L (21-27) H 09/26/16 10:06 ABG Total CO2 32.0 mEq/L (20-26) H 09/26/16 10:06 ABG O2 Saturation 90 % (95-98) L 09/26/16 10:06 Potassium 4.6 mEq/L (3.5-4.5) H 09/28/16 04:20 Chloride 96 mEq/L (98-109) L 09/28/16 04:20 BUN 60 mg/dL (7-20) H D 09/28/16 04:20 Creatinine 1.75 mg/dL (0.57-1.11) H 09/28/16 04:20 Est GFR ( Amer) 35 (> 60) L 09/28/16 04:20 Est GFR (Non-Af Amer) 29 (> 60) L 09/28/16 04:20 BUN/Creatinine Ratio 34 (6-26) H 09/28/16 04:20 Glucose 445 mg/dL (70-99) H 09/28/16 04:20 POC Glucose 451 (58-89) H* 09/27/16 20:48 Calculated Osmolality 318 (280-300) H 09/28/16 04:20 Troponin I 0.04 ng/mL (0-0.03) H* 09/22/16 06:29 B-Natriuretic Peptide 156 pg/mL (0-100) H 09/21/16 19:23 Urine Clarity Cloudy (Clear) A 09/22/16 12:25 Urine Glucose (UA) >=1000 mg/dL (Normal) H 09/22/16 12:25 Ur Leukocyte Esterase Small (Negative) H 09/22/16 12:25 Urine Microscopic WBC 5-15 per hpf (0-3) H 09/22/16 12:25 Ur Squamous Epith Cells Many per lpf (None-Few) H 09/22/16 12:25 Urine Bacteria Many per hpf (None-Few) H 09/22/16 12:25 Vancomycin Trough 26.4 mcg/mL (10-20) H* 09/27/16 16:00 - Clinical Findings Intake & Output: Intake & Output 09/28/16 09/28/16 09/28/16 07:59 15:59 23:59 Intake Total 100 / 100 100 / 100 Output Total 600 / 600 1400 / 1400 Balance -500 / -500 -1300 / -1300 Weight 127.3 kg Consult Discharge Plan - Plan Referrals: Eduardo Hernandez Jr, MD [Primary Care Provider] - (office will call patient at home with appointment date and time at the beginning of next week.)
[2016-09-28] MEDS ORDERED: Vancomycin 1,250 MG in D5% in Water 250 ML IVPB SCH ×2 (18:00→21:00)
[2016-09-29] MEDS: Ipratropium/Albuterol Neb 3 ML IH SCH ×5 (04:57→20:28)
[2016-09-29] MEDS: MethylPREDNISolone 40 MG/ML VIAL IVP SCH ×2 (05:36→16:33)
[2016-09-29 07:00] LABS: Basophils % 0.2 %; Hematocrit 33.2 % (35.3-44.9); Hemoglobin 10.8 g/dL (11.5-15.4); Immature Granulocytes % 4.1 % (0-4); Lymphocytes # 0.7 K/mcL (0.6-4.6); Lymphocytes % 12.1 %; Mean Corpuscular HGB Conc 32.5 g/dL (31.6-35.5); Mean Corpuscular Hemoglobin 29.9 pg (28.0-33.3); Monocytes # 0.4 K/mcL (0.0-1.3); Monocytes % 7.3 %; Neutrophils # 4.3 K/mcL (1.6-8.9); Platelet Count 121 K/mcL (140-400); Red Blood Count 3.61 M/mcL (3.82-4.97); Red Cell Distribution Width 14.2 % (11.5-14.5); Segmented Neutrophils % 76.3 %
[2016-09-29 07:27] LABS: Platelet Estimate Decreased (Normal)
[2016-09-29 07:36] LABS: Calcium 8.8 mg/dL (8.6-10.8); Magnesium 1.9 mg/dL (1.6-2.6); Phosphorous 3.5 mg/dL (2.3-4.7); Potassium 4.5 mEq/L (3.5-4.5)
[2016-09-29] MEDS ORDERED: Insulin LISPRO 300 UNITS/3 ML VIAL SQ SCH (07:38)
[2016-09-29] MEDS: Budesonide Neb 0.5 MG/2 ML IH SCH ×2 (07:42→20:28)
[2016-09-29] MEDS: Insulin LISPRO 300 UNITS/3 ML VIAL SQ SCH ×2 (08:16→12:30)
[2016-09-29] MEDS: Ascorbic Acid 500 MG TABLET PO SCH (08:27)
[2016-09-29] MEDS: ALPRAZolam 0.25 MG TABLET PO SCH ×2 (08:27→20:06)
[2016-09-29] MEDS: amLODIPine 5 MG TABLET PO SCH (08:27)
[2016-09-29] MEDS: Aspirin Enteric Coated 81 MG Tablet PO SCH (08:27)
[2016-09-29] MEDS: Vitamin B Complex/Vit C/Vit E 1 EACH TABLET PO SCH (08:27)
[2016-09-29] MEDS: Piperacillin/Tazobactam 3.375 GM in 0.9 % Sodium Chloride Mini Bag 100 ML IVPB SCH ×2 (08:28)
[2016-09-29] MEDS: Furosemide 20 MG/2 ML VIAL IVP SCH ×2 (08:29→16:45)
[2016-09-29] MEDS: Nystatin POWDER 30 GM BOTTLE TP SCH ×2 (08:30→20:07)
[2016-09-29] MEDS: Metoprolol 100 MG TABLET PO SCH ×2 (08:30→20:06)
[2016-09-29] MEDS: Cholecalciferol (D-3) 1,000 UNIT TABLET PO SCH (08:31)
--- NOTE | 2016-09-29 08:49 | Internal Med Progress Note ---
Date of Encounter: 09/29/16 Time of Encounter: 08:47 - Assessment and plan (1) Acute and chronic respiratory failure Current Visit: No Status: Resolved Assessment and plan: Likely secondary to COPD exacerbation, CHF decompensation, CAMILLE, PNA Will continue bipap support as needed Continue Steroid and bronchodilator support Continue IV antibiotics (Vancomycin and Zosyn)-Pharmacy to renally dose antibiotics and follow up Vancomycin Trough Patient encouraged to get out of bed to chair with assistance (at baseline, patient is able to ambulate with a cane at home) Pulmonary consultation appreciated Patient qualifies for home bipap support Will follow up with Dr. Owens in regards to patient's drop in O2 saturation on nasal cannula Awaiting finalization of blood cultures, will likely switch to PO Levaquin on discharge to complete therapy for a total of 7days. Qualifiers: Respiratory failure complication: hypoxia and hypercapnia Qualified Code(s) : J96.21 - Acute and chronic respiratory failure with hypoxia; J96.22 - Acute and chronic respiratory failure with hypercapnia (2) Acute exacerbation of chronic obstructive airways disease Current Visit: No Status: Acute Assessment and plan: Plan as listed above (3) Acute diastolic heart failure Current Visit: Yes Status: Acute Assessment and plan: Continue Diuretic Therapy continue to monitor Intake/Output Daily weights Fluid restriction (4) Atrial fibrillation with RVR Current Visit: Yes Status: Acute Assessment and plan: Rate controlled with PO cardizem and Metoprolol Will continue current therapy Holding anticoagulation at this time due to recent episode of bleeding (5) Chronic pulmonary embolism Current Visit: Yes Status: Acute Assessment and plan: Likely secondary to elevated hypertension and cor pulmonale. Patient was started on Eliquis on 09/22 but noted to have conjunctival hemorrhage of left eye and rectal bleeding due to which Eliquis was stopped Patient will benefit from outpatient GI work up Noted to have decrease in platelet count due to which Heparin SQ was placed on hold Will closely monitor PLT at this time. Plt count improved from previous day Qualifiers: Pulmonary embolism type: other Acute cor pulmonale presence: without acute cor pulmonale Qualified Code(s): I27.82 - Chronic pulmonary embolism (6) Pneumonia Current Visit: Yes Status: Acute Assessment and plan: Will continue IV abx (Vancomycin and Zosyn) will switch to Levaquin PO on discharge to complete therapy for 7 days Qualifiers: Pneumonia type: due to unspecified organism Laterality: bilateral Lung location: lower lobe of lung Qualified Code(s): J18.9 - Pneumonia, unspecified organism (7) Rectal bleeding Current Visit: Yes Status: Acute Assessment and plan: Noted to have Bloody stools when she was initially started on Eliquis No recurrent episodes reported no active bleeding reported Will continue to closely monitor H&H H&H stable at this time If anemia worsens, will transfuse as needed and consider GI evaluation (8) CKD (chronic kidney disease) stage 3, GFR 30-59 ml/min Current Visit: No Status: Chronic Assessment and plan: Kidney function improved from previous day Likely secondary to diuretic therapy HOwever given the acute CHF decompensation, will continue with diuresis at this time Kidney function has plateaued at this point, will continue to monitor. (9) Hypertension Current Visit: No Status: Chronic Assessment and plan: BP within acceptable range continue home medications Qualifiers: Hypertension type: essential hypertension Qualified Code(s): I10 - Essential (primary) hypertension (10) Type 2 diabetes mellitus Current Visit: No Status: Chronic Assessment and plan: Patient noted to be hyperglycemic On basal insulin therapy evening due to persistent hyperglycemia. Started at 0.2mg/kg insulin as patient is insulin naive. Patient remained hyperglycemic despite insulin therapy, requiring 62 units of correctional insulin coverage in addition to the 70units of Levemir Continue Levemir to 70units qdaily and added Levemir 30units qHS Increased humalog to 26units TIDAC continue to monitor fingerstick and blood glucose continue sliding scale insulin algorithm If hyperglycemia persists, patient may need insulin drip Qualifiers: Diabetes mellitus complication status: with hyperglycemia Diabetes mellitus extermination inspector insulin use: without extermination inspector use Qualified Code(s): E11.65 - Type 2 diabetes mellitus with hyperglycemia (11) Morbid obesity with BMI of 45.0-49.9, adult Current Visit: No Status: Chronic (12) DVT prophylaxis Current Visit: No Status: Acute Assessment and plan: IPCD - Subjective Interval history: Patient seen and examined with family present at bedside. Patient sitting in chair and eating breakfast. Patient does well with bipap support however her O2 saturation drops to mid 80s on nasal cannula. Currently saturationg 87% on 5L nasal cannula. Also noted to have peristent hyperglycemia, however improving from previous day. No overnight issues reported - Constitutional Vitals: Temp Pulse Resp BP Pulse Ox 97.4 F L 78 21 175/78 97 09/29/16 07:12 09/29/16 07:12 09/29/16 07:12 09/29/16 07:12 09/29/16 07:12 General appearance: Present: cooperative, A&O X 3, morbidly obese, pleasant, no acute distress, answers questions appropriately - Head Head exam: Present: atraumatic, normocephalic - Eye Eye exam: Present: PERRL, conjuntiva pink, sclera anicteric - Respiratory Respiratory exam: Absent: respiratory distress, wheezes - Cardiovascular Cardiovascular exam: Present: RRR, +S1, +S2 - GI/Abdominal GI/Abdominal exam: Present: normal bowel sounds, soft. Absent: tenderness - Extremities Exam Extremities exam: Present: pedal edema, warm, radial pulses palpable and symetrical. Absent: calf tenderness - Neurological Exam Neurological exam: Present: alert, oriented X3 - Psychiatric Psychiatric exam: Present: normal affect, normal mood Internal Medicine: Result - Labs CBC & Chem 7: 09/29/16 04:51 09/29/16 04:40 Labs: Short CBC 09/29/16 Range/Units 04:51 WBC 5.6 (4.3-11.1) K/mcL Hgb 10.8 L (11.5-15.4) g/dL Hct 33.2 L (35.3-44.9) % Plt Count 121 L (140-400) K/mcL Neutrophils # 4.3 (1.6-8.9) K/mcL BMP 09/29/16 04:40 Sodium 138 Potassium 4.5 Chloride 96 L Carbon Dioxide 30 H BUN 67 H Creatinine 1.61 H Glucose 341 H Calcium 8.8 - ABG Interpretation ABG results: ABG ABG pH 7.31 pH Units (7.32-7.45) L 09/26/16 10:06 ABG pCO2 60 mmHg (35-45) H 09/26/16 10:06 ABG pO2 65 mmHg (85-104) L 09/26/16 10:06 ABG O2 Saturation 90 % (95-98) L 09/26/16 10:06 PT/INR, D-dimer PT 12.1 Seconds (9.4-12.1) 09/22/16 00:47 D-Dimer 1410 ng/mLFEU (0-500) H 09/21/16 23:13 Consult Discharge Plan - Plan Referrals: Eduardo Hernandez Jr, MD [Primary Care Provider] - (office will call patient at home with appointment date and time at the beginning of next week.)
[2016-09-29] MEDS ORDERED: Insulin DETEMIR 100 UNIT/ML X5UNITS SQ SCH ×2 (09:16→21:00)
[2016-09-29] MEDS ORDERED: LEVOFLOXACIN 750 MG/150 ML IVPB SCH (13:00)
[2016-09-29] MEDS: Insulin Human Regular 100 UNIT in 0.9 % Sodium Chloride 100 ML IVC SCH (15:00)
[2016-09-29] MEDS ORDERED: Dextrose Gel 15 GM PO PRN ×2 (21:23)
[2016-09-29] MEDS ORDERED: *HR* Dextrose 50 % in Water (Syg) 50 ML SYRINGE IVP PRN (21:23)
[2016-09-29] MEDS ORDERED: D5% in Water 1,000 ML IV PRN (21:23)
[2016-09-29] MEDS: Insulin DETEMIR 100 UNIT/ML X5UNITS SQ SCH (22:12)
[2016-09-30] MEDS: Ipratropium/Albuterol Neb 3 ML IH SCH ×6 (00:33→20:03)
[2016-09-30 04:29] LABS: Basophils % 0.3 %; Hemoglobin 11.2 g/dL (11.5-15.4); Immature Granulocytes % 4.3 % (0-4); Lymphocytes # 0.7 K/mcL (0.6-4.6); Mean Corpuscular Hemoglobin 29.2 pg (28.0-33.3); Mean Corpuscular Volume 91.1 fL (83.0-100.0); Mean Platelet Volume 10.4 fL (9.4-12.4); Monocytes # 0.5 K/mcL (0.0-1.3); Monocytes % 7.2 %; Neutrophils # 5.8 K/mcL (1.6-8.9); Platelet Count 128 K/mcL (140-400); Red Blood Count 3.84 M/mcL (3.82-4.97); Red Cell Distribution Width 14.3 % (11.5-14.5); Segmented Neutrophils % 79.2 %
[2016-09-30 04:45] LABS: Calcium 8.7 mg/dL (8.6-10.8); Magnesium 1.8 mg/dL (1.6-2.6); Phosphorous 3.5 mg/dL (2.3-4.7)
[2016-09-30] MEDS: MethylPREDNISolone 40 MG/ML VIAL IVP SCH ×2 (06:21→16:42)
[2016-09-30] MEDS: Budesonide Neb 0.5 MG/2 ML IH SCH ×2 (07:59→20:03)
[2016-09-30] MEDS: Insulin DETEMIR 100 UNIT/ML X5UNITS SQ SCH ×2 (08:00→21:07)
[2016-09-30] MEDS: Metoprolol 100 MG TABLET PO SCH ×2 (08:02→21:07)
[2016-09-30] MEDS: Aspirin Enteric Coated 81 MG Tablet PO SCH (08:02)
[2016-09-30] MEDS: Cholecalciferol (D-3) 1,000 UNIT TABLET PO SCH (08:02)
[2016-09-30] MEDS: Vitamin B Complex/Vit C/Vit E 1 EACH TABLET PO SCH (08:02)
[2016-09-30] MEDS: Ascorbic Acid 500 MG TABLET PO SCH (08:02)
[2016-09-30] MEDS: amLODIPine 5 MG TABLET PO SCH (08:02)
[2016-09-30] MEDS: Furosemide 20 MG/2 ML VIAL IVP SCH ×2 (08:03→16:42)
[2016-09-30] MEDS: ALPRAZolam 0.25 MG TABLET PO SCH (08:03)
[2016-09-30] MEDS: Insulin LISPRO 300 UNITS/3 ML VIAL SQ SCH ×5 (08:04→16:43)
[2016-09-30] MEDS: Nystatin POWDER 30 GM BOTTLE TP SCH ×2 (08:05→21:08)
--- NOTE | 2016-09-30 11:12 | Internal Med Progress Note ---
Date of Encounter: 09/30/16 Time of Encounter: 10:40 - Assessment and plan (1) Acute and chronic respiratory failure Current Visit: No Status: Resolved Assessment and plan: Likely secondary to COPD exacerbation, CHF decompensation, CAMILLE, PNA Will continue bipap support as needed Continue Steroid and bronchodilator support Continue IV antibiotics, switched to Levaquin. Patient to finish abx course day (Day 02/02) Patient encouraged to get out of bed to chair with assistance (at baseline, patient is able to ambulate with a cane at home) Pulmonary consultation appreciated Patient qualifies for home bipap support Qualifiers: Respiratory failure complication: hypoxia and hypercapnia Qualified Code(s) : J96.21 - Acute and chronic respiratory failure with hypoxia; J96.22 - Acute and chronic respiratory failure with hypercapnia (2) Acute exacerbation of chronic obstructive airways disease Current Visit: No Status: Acute Assessment and plan: Plan as listed above (3) Acute diastolic heart failure Current Visit: Yes Status: Acute Assessment and plan: Continue Diuretic Therapy continue to monitor Intake/Output Daily weights Fluid restriction (4) Atrial fibrillation with RVR Current Visit: Yes Status: Acute Assessment and plan: Rate controlled with PO cardizem and Metoprolol Will continue current therapy Holding anticoagulation at this time due to recent episode of bleeding (5) Chronic pulmonary embolism Current Visit: Yes Status: Acute Assessment and plan: Likely secondary to elevated hypertension and cor pulmonale. Patient was started on Eliquis on 09/22 but noted to have conjunctival hemorrhage of left eye and rectal bleeding due to which Eliquis was stopped Patient will benefit from outpatient GI work up Noted to have decrease in platelet count due to which Heparin SQ was placed on hold Will closely monitor PLT at this time. Plt count improved from previous day Qualifiers: Pulmonary embolism type: other Acute cor pulmonale presence: without acute cor pulmonale Qualified Code(s): I27.82 - Chronic pulmonary embolism (6) Pneumonia Current Visit: Yes Status: Acute Assessment and plan: Switched to levaquin. Patient to finish abx therapy today Qualifiers: Pneumonia type: due to unspecified organism Laterality: bilateral Lung location: lower lobe of lung Qualified Code(s): J18.9 - Pneumonia, unspecified organism (7) Rectal bleeding Current Visit: Yes Status: Acute Assessment and plan: Noted to have Bloody stools when she was initially started on Eliquis No recurrent episodes reported no active bleeding reported Will continue to closely monitor H&H H&H stable at this time If anemia worsens, will transfuse as needed and consider GI evaluation (8) CKD (chronic kidney disease) stage 3, GFR 30-59 ml/min Current Visit: No Status: Chronic Assessment and plan: Kidney function improved from previous day Likely secondary to diuretic therapy HOwever given the acute CHF decompensation, will continue with diuresis at this time Kidney function has plateaued at this point, will continue to monitor. (9) Hypertension Current Visit: No Status: Chronic Assessment and plan: BP within acceptable range continue home medications Qualifiers: Hypertension type: essential hypertension Qualified Code(s): I10 - Essential (primary) hypertension (10) Type 2 diabetes mellitus Current Visit: No Status: Chronic Assessment and plan: Patient noted to be hyperglycemic Required insulin drip yesterday due to persistently elevated blood glucose BG better controlled, restarted basal and short acting insulin continue to monitor fingerstick and blood glucose continue sliding scale insulin algorithm Will closely monitor blood glucose for 24hours, if remains stable, likely d/c to rehab in am. Qualifiers: Diabetes mellitus complication status: with hyperglycemia Diabetes mellitus jail insulin use: without terminal supervisor use Qualified Code(s): E11.65 - Type 2 diabetes mellitus with hyperglycemia (11) Morbid obesity with BMI of 45.0-49.9, adult Current Visit: No Status: Chronic (12) DVT prophylaxis Current Visit: No Status: Acute Assessment and plan: IPCD - Subjective Interval history: Patient seen and examined with family present at bedside. Patient sitting in chair and reported of having difficulty with the bipap mask overnight. Patient' s daughter also tested positive for influenza who was taking close care of the patient during this hospitalization, due to which patient had the influenza screen done which was negative. Patient was also noted to have persistently high blood glucose levels despite basal and short acting insulin coverage due to which she was started on insulin drip yesterday. Once her blood glucose was below 200 she was switched to Levemir. - Constitutional Vitals: Temp Pulse Resp BP Pulse Ox 98.8 F 80 18 155/89 90 L 09/30/16 03:32 09/30/16 10:27 09/30/16 07:59 09/30/16 10:27 09/30/16 07:59 General appearance: Present: cooperative, A&O X 3, morbidly obese, pleasant, no acute distress, answers questions appropriately - Head Head exam: Present: atraumatic, normocephalic - Eye Eye exam: Present: conjuntiva pink, sclera anicteric - Respiratory Respiratory exam: Absent: respiratory distress, wheezes - Cardiovascular Cardiovascular exam: Present: RRR, +S1, +S2 - GI/Abdominal GI/Abdominal exam: Present: distended (obese), normal bowel sounds, soft. Absent: tenderness - Extremities Exam Extremities exam: Present: pedal edema, warm, radial pulses palpable and symetrical. Absent: calf tenderness - Neurological Exam Neurological exam: Present: alert, oriented X3, no focal deficits - Psychiatric Psychiatric exam: Present: normal affect, normal mood Internal Medicine: Result - Labs CBC & Chem 7: 09/30/16 04:15 09/30/16 04:15 Labs: Short CBC 09/30/16 Range/Units 04:15 WBC 7.4 (4.3-11.1) K/mcL Hgb 11.2 L (11.5-15.4) g/dL Hct 35.0 L (35.3-44.9) % Plt Count 128 L (140-400) K/mcL Neutrophils # 5.8 (1.6-8.9) K/mcL BMP 09/30/16 04:15 Sodium 138 Potassium 4.0 Chloride 96 L Carbon Dioxide 31 H BUN 72 H Creatinine 1.44 H Glucose 181 H Calcium 8.7 - ABG Interpretation ABG results: ABG ABG pH 7.31 pH Units (7.32-7.45) L 09/26/16 10:06 ABG pCO2 60 mmHg (35-45) H 09/26/16 10:06 ABG pO2 65 mmHg (85-104) L 09/26/16 10:06 ABG O2 Saturation 90 % (95-98) L 09/26/16 10:06 PT/INR, D-dimer PT 12.1 Seconds (9.4-12.1) 09/22/16 00:47 D-Dimer 1410 ng/mLFEU (0-500) H 09/21/16 23:13 Consult Discharge Plan - Plan Referrals: Eduardo Hernandez Jr, MD [Primary Care Provider] - (PATIENT IS GOING TO [facility], NO PCP APPOINTMENT NEEDED)
[2016-09-30] MEDS: Acetaminophen 325 MG TABLET PO PRN (11:25)
[2016-09-30] MEDS ORDERED: Dextrose Gel 15 GM PO PRN ×2 (11:27)
[2016-09-30] MEDS ORDERED: *HR* Dextrose 50 % in Water (Syg) 50 ML SYRINGE IVP PRN (11:27)
[2016-09-30] MEDS ORDERED: D5% in Water 1,000 ML IV PRN (11:27)
[2016-09-30] MEDS: Insulin Human Regular 100 UNIT in 0.9 % Sodium Chloride 100 ML IVC SCH (15:46)
[2016-09-30] MEDS ORDERED: Insulin LISPRO 300 UNITS/3 ML VIAL SQ SCH (21:00)
[2016-09-30] MEDS: Sennosides 8.6 MG TABLET PO SCH (21:07)
[2016-10-01] MEDS: Ipratropium/Albuterol Neb 3 ML IH SCH ×3 (00:04→08:58)
[2016-10-01 04:58] LABS: Hematocrit 38.7 % (35.3-44.9); Hemoglobin 12.5 g/dL (11.5-15.4); Mean Corpuscular HGB Conc 32.3 g/dL (31.6-35.5); Mean Corpuscular Hemoglobin 29.7 pg (28.0-33.3); Mean Corpuscular Volume 91.9 fL (83.0-100.0); Mean Platelet Volume 10.3 fL (9.4-12.4); Red Blood Count 4.21 M/mcL (3.82-4.97); Red Cell Distribution Width 14.4 % (11.5-14.5)
[2016-10-01] MEDS: ALPRAZolam 0.25 MG TABLET PO SCH ×2 (05:02→08:19)
[2016-10-01 05:14] LABS: Phosphorous 4.2 mg/dL (2.3-4.7); Potassium 4.3 mEq/L (3.5-4.5)
[2016-10-01 05:16] LABS: Platelet Count 196 K/mcL (140-400)
[2016-10-01 05:33] LABS: Lymphocytes # 2.3 K/mcL (0.6-4.6); Neutrophils # 10.4 K/mcL (1.6-8.9); Platelet Estimate Normal (Normal)
[2016-10-01 05:34] LABS: Polychromasia 1+ (Not Present)
[2016-10-01] MEDS: MethylPREDNISolone 40 MG/ML VIAL IVP SCH (06:51)
[2016-10-01] MEDS: amLODIPine 5 MG TABLET PO SCH (08:18)
[2016-10-01] MEDS: Sennosides 8.6 MG TABLET PO SCH (08:18)
[2016-10-01] MEDS: Metoprolol 100 MG TABLET PO SCH (08:18)
[2016-10-01] MEDS: Aspirin Enteric Coated 81 MG Tablet PO SCH (08:18)
[2016-10-01] MEDS: Ascorbic Acid 500 MG TABLET PO SCH (08:18)
[2016-10-01] MEDS: Vitamin B Complex/Vit C/Vit E 1 EACH TABLET PO SCH (08:19)
[2016-10-01] MEDS: Cholecalciferol (D-3) 1,000 UNIT TABLET PO SCH (08:19)
[2016-10-01] MEDS: Furosemide 20 MG/2 ML VIAL IVP SCH (08:19)
[2016-10-01] MEDS: Insulin LISPRO 300 UNITS/3 ML VIAL SQ SCH ×4 (08:19→12:15)
[2016-10-01] MEDS: Insulin DETEMIR 100 UNIT/ML X5UNITS SQ SCH (08:20)
[2016-10-01] MEDS: Nystatin POWDER 30 GM BOTTLE TP SCH (08:20)
[2016-10-01] MEDS: Budesonide Neb 0.5 MG/2 ML IH SCH (08:58)
[2016-10-01 09:41] VITALS: BP 155/72
[2016-10-01] MEDS ORDERED: levoFLOXacin 500 MG TABLET PO ONE (09:45)
[2016-10-01] MEDS ORDERED: MOM Conc 10 ML UD.LIQ PO ONE (10:08)
--- NOTE | 2016-10-01 11:29 | Discharge Summary ---
Date of Encounter: 10/01/16 Time of Encounter: 10:45 - Discharge Diagnosis (1) Acute and chronic respiratory failure Priority: Primary Status: Resolved Qualifiers: Respiratory failure complication: hypoxia and hypercapnia Qualified Code(s) : J96.21 - Acute and chronic respiratory failure with hypoxia; J96.22 - Acute and chronic respiratory failure with hypercapnia (2) Acute exacerbation of chronic obstructive airways disease Priority: Primary Status: Acute (3) Acute diastolic heart failure Priority: Secondary Status: Acute (4) Atrial fibrillation with RVR Priority: Secondary Status: Acute (5) Chronic pulmonary embolism Priority: Secondary Status: Chronic Qualifiers: Pulmonary embolism type: other Acute cor pulmonale presence: without acute cor pulmonale Qualified Code(s): I27.82 - Chronic pulmonary embolism (6) Pneumonia Priority: Secondary Status: Acute Qualifiers: Pneumonia type: due to unspecified organism Laterality: bilateral Lung location: lower lobe of lung Qualified Code(s): J18.9 - Pneumonia, unspecified organism (7) Rectal bleeding Priority: Secondary Status: Acute (8) CKD (chronic kidney disease) stage 3, GFR 30-59 ml/min Priority: Secondary Status: Chronic (9) Hypertension Priority: Secondary Status: Chronic Qualifiers: Hypertension type: essential hypertension Qualified Code(s): I10 - Essential (primary) hypertension (10) Type 2 diabetes mellitus Priority: Secondary Status: Chronic Qualifiers: Diabetes mellitus complication status: with hyperglycemia 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 use: without senior care use Qualified Code(s): E11.65 - Type 2 diabetes mellitus with hyperglycemia (11) Morbid obesity with BMI of 45.0-49.9, adult Priority: Secondary Status: Chronic (12) DVT prophylaxis Priority: Secondary Status: Acute - Discharge Medications Prescriptions: Alprazolam [Xanax 0.25 MG Tablet] 0.5 mg PO BID #30 tablet Levofloxacin 500 mg PO DAILY #2 tablet PredniSONE 40 mg PO DAILY #7 tablet Sennosides/Docusate Sodium [Senna Plus] 2 each PO BID #60 tablet Home Medications: Albuterol Sulfate [Albuterol Inhaler] 2 puff IH Q4H PRN 08/23/16 [History] Amitriptyline [Elavil] 10 mg PO HS 08/23/16 [History] Ascorbate Calcium [Vitamin C] 500 mg PO DAILY 08/23/16 [History] Aspirin 81 mg PO DAILY 08/23/16 [History] Biotin 1 mg PO DAILY 08/23/16 [History] Calcium Carbonate/Vitamin D3 [Calcium 600 with Vit D Chew Tb] 1 each PO DAILY [History] Ergocalciferol (VITAMIN D2) [Vitamin D] 400 unit PO DAILY 08/23/16 [History] Fish Oil/Dha/Epa [Fish Oil 1,200 mg Fish Oil] 1 each PO DAILY 08/23/16 [History] Fluticasone Propionate Nasal [Flonase] 50 mcg NS DAILY PRN 08/23/16 [History] Hydroxyzine HCl 25 mg PO HS PRN 08/23/16 [History] Lovastatin 40 mg PO QPM 08/23/16 [History] Metoprolol [Lopressor] 100 mg PO BID 08/23/16 [History] Tiotropium [place] [Spiriva] 18 mcg IH DAILY 08/23/16 [History] Vitamin B Complex 1 each PO DAILY 08/23/16 [History] Budesonide/Formoterol 160/4.5 [Symbicort 160/4.5] 2 puff IH BIDR #1 inhaler [Rx] Ipratropium/Albuterol Neb [Duoneb] 3 ml IH QIDR PRN #100 aerosol 08/27/16 [Rx] Metformin [Glucophage] 500 mg PO BID #60 tablet 08/27/16 [Rx] Nystatin POWDER [Nystop] 1 appl TP BID #1 bottle 08/27/16 [Rx] Amlodipine [Norvasc] 10 mg PO DAILY 09/21/16 [History] Oxygen 2 l NS CONT 09/21/16 [History] Alprazolam [Xanax 0.25 MG Tablet] 0.5 mg PO BID #30 tablet 10/01/16 [Rx] Budesonide Neb [Pulmicort Neb] 0.5 mg IH BIDR inhsol 10/01/16 [Rx] Diltiazem [Cardizem] 30 mg PO Q8HR tablet 10/01/16 [Rx] Furosemide [Lasix] 40 mg PO BIDDIURETIC #0 vial 10/01/16 [Rx] GuaiFENesin/Dextromethorphan [Robitussin/Dm] 10 ml PO BID PRN #0 udc 10/01/16 [ Rx] Insulin DETEMIR [Levemir] 20 unit SQ BID [id number] 10/01/16 [Rx] Insulin LISPRO [HumaLOG] 0 units SQ HS vial 10/01/16 [Rx] Insulin LISPRO [HumaLOG] 0 units SQ TIDAC vial 10/01/16 [Rx] Insulin LISPRO [HumaLOG] 10 units SQ TIDWM vial 10/01/16 [Rx] Levofloxacin 500 mg PO DAILY #2 tablet 10/01/16 [Rx] PredniSONE 40 mg PO DAILY #7 tablet 10/01/16 [Rx] Sennosides/Docusate Sodium [Senna Plus] 2 each PO BID #60 tablet 10/01/16 [Rx] Allergies/Adverse Reactions: Allergies No Known Allergies Allergy (Verified 08/23/16 19:46) Date of admission: 09/22/16 00:29 Primary care physician: Eduardo Hernandez Jr, MD Consults: 09/22/16 07:04 Consult to Pulmonology [CONS] Routine Consulting Provider: Pulm Crit [facility] Sleep Rita Reason for Consult: Acute resp failure Call Completed: No 09/25/16 14:33 Consult to Invasive Line Access Team [CONS] Routine Reason for Consult: limited access Line Type: EPIV 09/26/16 18:23 Consult to Occupational Therapy [CONS] Routine Comment: Evaluate, develop and implement POC Consult to Physical Therapy [CONS] Routine Comment: Evaluate, develop and implement POC Discharging clinician: Stephanie Radford Anticipated date of discharge: 10/01/16 - Patient Status Disposition: Transfer SNF Condition: Fair Functional capacity at discharge: uses cane/walker Overall status at discharge: patient is progressing back to baseline - Discharge Instructions Follow Up With: Eduardo Hernandez Jr, MD [Primary Care Provider] - (PATIENT IS GOING TO [facility], NO PCP APPOINTMENT NEEDED) Additional Instructions: Please follow up with your primary care physician and deputy director of nursing within five days after your discharge from the hospital. Please continue to take steroids and antibiotics as perscribed. Insulin therapy has been added to your home medications. Please continue to use bipap overnight and O2 during the day. Please consult your primary care physician in regards to continuation of your anticoagulation therapy (Eliquis) as it was placed on hold due to the episode of rectal bleed you had while your hospitalization. Your home dose of Lasix has been increased. Please closely monitor your blood glucose. Please take all your home medications as prescribed by your primary care physician. - Diet and Activity Activity: as per physical therapy, wear oxygen at all times, wear oxygen at night Diet: diabetic diet Hospital course: Ms. Pollack is a 70 year old female with PMH of T2Dm, COPD, CHF, prior PE, HLD, HTN, anxiety, CKD, and morbid obesity who was admitted for management of acute respiratory failure secondary to CHF decompensation, COPD exacerbation, and Pneumonia. Patient was treated with IV steroids, IV diuretic therapy, and IV antibiotics. Patient's hospital course was complicated with multiple comorbidies. She was started on Eliquis due to her history of chronic PE however she had a rectal bleed shortly after the anticoagulation therapy was initiated, due to which Eliquis was discontinued. She was further noted to be severely hyperglycemic requiring insulin drip support. Diabetic education counseling was provided. Patient's blood glucose were better controlled with insulin therapy. She also underwent bipap study and qualified for home bipap and O2 support. Patient's O2 saturation remained labile and as per pulmonary, due to her severe lung disease and listed comorbidities, this is her baseline. Patient is to continue with O2 supplementation and bipap support after discharge. She was evaluated by PHysical therapy and rehab placement was recommended. Patient will be discharged to SNF today with follow up with PCP and deputy director of nursing. She is to continue steroid therapy, abx after discharge along with all her other home medications. Patient's family and patient demonstrate understanding of her diagnosis and agree with the discharge plan. - Time Spent with Patient Total time spent providing and/or coordinating discharge services: Greater than 30 minutes - Constitutional Vitals: Temp Pulse Resp BP Pulse Ox 97.9 F 83 18 155/72 88 L 10/01/16 08:31 10/01/16 09:39 10/01/16 09:01 10/01/16 09:39 10/01/16 09:01 General appearance: Present: cooperative, A&O X 3, morbidly obese, pleasant, no acute distress, answers questions appropriately - Head Head exam: Present: atraumatic, normocephalic - Eye Eye exam: Present: PERRL, conjuntiva pink, sclera anicteric - Respiratory Respiratory exam: Present: decreased breath sounds. Absent: respiratory distress, wheezes - Cardiovascular Cardiovascular exam: Present: RRR, +S1, +S2. Absent: diastolic murmur, gallop, rubs, systolic murmur - GI/Abdominal GI/Abdominal exam: Present: normal bowel sounds, soft, no peritoneal signs. Absent: distended, tenderness - Extremities Exam Extremities exam: Present: pedal edema, warm, radial pulses palpable and symetrical. Absent: calf tenderness - Neurological Exam Neurological exam: Present: alert, oriented X3 - Psychiatric Psychiatric exam: Present: normal affect, normal mood
--- NOTE | 2016-10-01 11:41 | Physician Discharge Referral ---
ExtendedCare Referral Info Transfer To: F Provider in Charge after Transfer: PCP - Diagnosis (1) Acute and chronic respiratory failure Priority: Primary Status: Resolved (2) Acute exacerbation of chronic obstructive airways disease Priority: Primary Status: Acute (3) Acute diastolic heart failure Priority: Primary Status: Acute (4) Atrial fibrillation with RVR Priority: Secondary Status: Acute (5) Chronic pulmonary embolism Priority: Secondary Status: Chronic (6) Pneumonia Priority: Secondary Status: Acute (7) Rectal bleeding Priority: Secondary Status: Acute (8) CKD (chronic kidney disease) stage 3, GFR 30-59 ml/min Priority: Secondary Status: Chronic (9) Hypertension Priority: Secondary Status: Chronic (10) Type 2 diabetes mellitus Priority: Secondary Status: Chronic (11) Morbid obesity with BMI of 45.0-49.9, adult Priority: Secondary Status: Chronic (12) DVT prophylaxis Priority: Secondary Status: Acute - Transfer Medications Prescriptions: Alprazolam [Xanax 0.25 MG Tablet] 0.5 mg PO BID #30 tablet Levofloxacin 500 mg PO DAILY #2 tablet PredniSONE 40 mg PO DAILY #7 tablet Sennosides/Docusate Sodium [Senna Plus] 2 each PO BID #60 tablet Home Medications: Albuterol Sulfate [Albuterol Inhaler] 2 puff IH Q4H PRN 08/23/16 [History] Amitriptyline [Elavil] 10 mg PO HS 08/23/16 [History] Ascorbate Calcium [Vitamin C] 500 mg PO DAILY 08/23/16 [History] Aspirin 81 mg PO DAILY 08/23/16 [History] Biotin 1 mg PO DAILY 08/23/16 [History] Calcium Carbonate/Vitamin D3 [Calcium 600 with Vit D Chew Tb] 1 each PO DAILY [History] Ergocalciferol (VITAMIN D2) [Vitamin D] 400 unit PO DAILY 08/23/16 [History] Fish Oil/Dha/Epa [Fish Oil 1,200 mg Fish Oil] 1 each PO DAILY 08/23/16 [History] Fluticasone Propionate Nasal [Flonase] 50 mcg NS DAILY PRN 08/23/16 [History] Hydroxyzine HCl 25 mg PO HS PRN 08/23/16 [History] Lovastatin 40 mg PO QPM 08/23/16 [History] Metoprolol [Lopressor] 100 mg PO BID 08/23/16 [History] Tiotropium [place] [Spiriva] 18 mcg IH DAILY 08/23/16 [History] Vitamin B Complex 1 each PO DAILY 08/23/16 [History] Budesonide/Formoterol 160/4.5 [Symbicort 160/4.5] 2 puff IH BIDR #1 inhaler [Rx] Ipratropium/Albuterol Neb [Duoneb] 3 ml IH QIDR PRN #100 aerosol 08/27/16 [Rx] Metformin [Glucophage] 500 mg PO BID #60 tablet 08/27/16 [Rx] Nystatin POWDER [Nystop] 1 appl TP BID #1 bottle 08/27/16 [Rx] Amlodipine [Norvasc] 10 mg PO DAILY 09/21/16 [History] Oxygen 2 l NS CONT 09/21/16 [History] Alprazolam [Xanax 0.25 MG Tablet] 0.5 mg PO BID #30 tablet 10/01/16 [Rx] Budesonide Neb [Pulmicort Neb] 0.5 mg IH BIDR inhsol 10/01/16 [Rx] Diltiazem [Cardizem] 30 mg PO Q8HR tablet 10/01/16 [Rx] Furosemide [Lasix] 40 mg PO BIDDIURETIC #0 vial 10/01/16 [Rx] GuaiFENesin/Dextromethorphan [Robitussin/Dm] 10 ml PO BID PRN #0 udc 10/01/16 [ Rx] Insulin DETEMIR [Levemir] 20 unit SQ BID [id number] 10/01/16 [Rx] Insulin LISPRO [HumaLOG] 0 units SQ HS vial 10/01/16 [Rx] Insulin LISPRO [HumaLOG] 0 units SQ TIDAC vial 10/01/16 [Rx] Insulin LISPRO [HumaLOG] 10 units SQ TIDWM vial 10/01/16 [Rx] Levofloxacin 500 mg PO DAILY #2 tablet 10/01/16 [Rx] PredniSONE 40 mg PO DAILY #7 tablet 10/01/16 [Rx] Sennosides/Docusate Sodium [Senna Plus] 2 each PO BID #60 tablet 10/01/16 [Rx] Allergies/Adverse Reactions: Allergies No Known Allergies Allergy (Verified 08/23/16 19:46) - Respiratory Orders Smoking Cessation: Smoking cessation has been advised. For more information, call the [place] Tobacco Quit Line at 8-211-OOCH-NOW. - Treatments List/Other: Please follow up with your primary care physician and parking station attendant within five days after your discharge from the hospital. Please continue to take steroids and antibiotics as perscribed. Insulin therapy has been added to your home medications. Please continue to use bipap overnight and O2 during the day. Please consult your primary care physician in regards to continuation of your anticoagulation therapy (Eliquis) as it was placed on hold due to the episode of rectal bleed you had while your hospitalization. Your home dose of Lasix has been increased. Please closely monitor your blood glucose. Please take all your home medications as prescribed by your primary care physician. - Diet Orders House Supplement per Dietary: DIABETIC DIET!!! CERTIFICATION: I certify that the transfer of the above named patient to an Extended Care Facility is necessary for the continuing treatment of the diagnosis listed. The above information is true and accurate reflection of patient's current condition. Confidential - Redisclosure prohibited without a patient's written consent.
[2016-10-01] MEDS ORDERED: FLU VACC QS2016-17 36MOS UP/PF 0.5 ML SYRINGE IM ONE (11:55)
[2016-10-01] MEDS ORDERED: Aminoglycoside Consult 1 EACH MC ONE (12:29)
== END 2016-10-01 12:30 | DRG 291 ==
LOC: EMEROO 18:40 → 2ANU 18:40 → SUATTDRO 09-22 00:29 → 2ANU 09-24 14:06 → 2NNU 09-25 13:29
PROVIDERS: ADMIT Internal Medicine; ATTEND Internal Medicine

== ENCOUNTER 2016-10-08 12:48 | Inpatient (IN) ==
--- NOTE | 2016-10-08 13:02 | Emergency Department Note ---
Disposition Clinical Impression: Atrial fibrillation with RVR CHF exacerbation Qualifiers: Congestive heart failure type: diastolic Qualified Code(s): I50.33 - Acute on chronic diastolic (congestive) heart failure Disposition: Admitted As Inpatient Condition: Fair Time of Disposition: 16:08 Arrhythmia/Palpitations HPI - General Chief Complaint: ED Arrhythmia/Palpitations Stated Complaint: Afib Time Seen by Provider: 10/08/16 12:58 Source: patient, EMS Limitations: no limitations Nursing Notes Reviewed: Yes Vital Signs Reviewed: Yes - History of Present Illness HPI Narrative: 70-year-old female history of CHF, acute on chronic respiratory failure, atrial fibrillation, paroxysmal. Sensation is not currently attack related for A. fib they do take Cardizem, metoprolol, for rate control, patient presents after an episode of tachycardia, palpitations and shortness of breath. Patient was transferred from her nursing facility due to the above complaints. Patient denies chest pain, states that she still generalized weakness. She is discharged from [place] 1 week ago. For acute exacerbation of COPD. Pt Subjective Complaint: rapid heart beat, "heart racing" Onset (ago): hour(s) Severity: moderate Context: occurred during rest Arrhythmia History: atrial fibrillation Associated symptoms: Reports: denies other symptoms, shortness of breath, nausea. Denies: chest pain, vomiting, anxiety - Related Data Home Medications Medication Instructions Recorded Confirmed Albuterol Sulfate [Albuterol 2 puff IH Q4H PRN 08/23/16 10/08/16 Inhaler] Amitriptyline [Elavil] 10 mg PO HS 08/23/16 10/08/16 Ascorbate Calcium [Vitamin C] 500 mg PO DAILY 08/23/16 10/08/16 Aspirin 81 mg PO DAILY 08/23/16 10/08/16 Calcium Carbonate/Vitamin D3 1 each PO DAILY 08/23/16 10/08/16 [Calcium 600 with Vit D Chew Tb] Ergocalciferol (VITAMIN D2) 400 unit PO DAILY 08/23/16 10/08/16 [Vitamin D] Fish Oil/Dha/Epa [Fish Oil 1,200 1 cap PO DAILY 08/23/16 10/08/16 mg Fish Oil] Fluticasone Propionate Nasal 50 mcg NS DAILY PRN 08/23/16 10/08/16 [Flonase] Hydroxyzine HCl 25 mg PO HS PRN 08/23/16 10/08/16 Metoprolol [Lopressor] 100 mg PO BID 08/23/16 10/08/16 Tiotropium [place] [Spiriva] 18 mcg IH DAILY 08/23/16 10/08/16 Vitamin B Complex 1 cap PO DAILY 08/23/16 10/08/16 Amlodipine [Norvasc] 5 mg PO DAILY 09/21/16 10/08/16 Oxygen 2 l NS CONT 09/21/16 10/08/16 Acetaminophen [Tylenol] 650 mg PO Q6HR 10/08/16 10/08/16 Furosemide [Lasix] 40 mg PO BID 10/08/16 10/08/16 Insulin LISPRO [HumaLOG] 2 - 12 units SQ TIDWM 10/08/16 10/08/16 Lactulose [Enulose] 20 gm PO BID 10/08/16 10/08/16 Lovastatin 10 mg PO DAILY 10/08/16 10/08/16 Sennosides/Docusate Sodium [Senna 1 tab PO BID 10/08/16 10/08/16 Plus] Previous Rx's Medication Instructions Recorded Budesonide/Formoterol 160/4.5 2 puff IH BIDR #1 inhaler 08/27/16 [Symbicort 160/4.5] Ipratropium/Albuterol Neb [Duoneb] 3 ml IH QIDR PRN #100 aerosol 08/27/16 Metformin [Glucophage] 500 mg PO BID #60 tablet 08/27/16 Nystatin POWDER [Nystop] 1 appl TP BID #1 bottle 08/27/16 Alprazolam [Xanax 0.25 MG Tablet] 0.5 mg PO BID #30 tablet 10/01/16 Budesonide Neb [Pulmicort Neb] 0.5 mg IH BIDR inhsol 10/01/16 Diltiazem [Cardizem] 30 mg PO Q8HR tablet 10/01/16 GuaiFENesin/Dextromethorphan 10 ml PO BID PRN #0 udc 10/01/16 [Robitussin/Dm] Allergies Allergy/AdvReac Type Severity Reaction Status Date / Time No Known Allergies Allergy Verified 08/23/16 19:46 All systems ED: reviewed and negative except as stated. Constitutional: Denies: fever, chills Cardiovascular: Reports: as per HPI, palpitations, dyspnea on exertion. Denies : chest pain Respiratory: Reports: dyspnea. Denies: cough, wheezes, hemoptysis Gastrointestinal: Denies: abdominal pain, nausea, vomiting Genitourinary: Denies: urgency, dysuria Musculoskeletal: Denies: back pain, neck pain Integumentary: Denies: rash, abrasion Neurological: Denies: headache, weakness Past Medical History - Past Medical History Attestation: Yes The following information was validated with the patient. Source: patient Medical history: Reports: CHF, COPD, DVT, diabetes, hyperlipidemia, hypertension Surgical history: Reports: appendectomy, Psychiatric history: Reports: anxiety, depression - Social History Smoking Status: Former smoker Smokeless Tobacco Status: No Alcohol use: Reports: none Drug use: Reports: none Physical Exam Constitutional: Elderly female appears stated age, in mild to moderate respiratory distress, tachycardic. Hypoxic 96% on 4 L. Neck: normal inspection, neck is supple, trachea midline Resp: diminished Breath sounds at the bases, scattered wheezes. CV: Irregularly irregular rhythm. GI: normal inspection, Soft, NTND, BS present Back: normal inspection, no tenderness to palpation Neuro: A&O3, no gross motor or sensory deficits bilaterally MSK: normal inspection, bilateral UE and LE with normal ROM Psych: normal mood, normal affect Skin: No rashes, skin warm, dry, intact - General Limitations: no limitations General appearance: alert, in no apparent distress Course Course Narrative: 70-year-old female with atrial fibrillation, paroxysmal not anticoagulated appears to be in A. fib with RVR, we will try IV metoprolol basic lab work with chest pain workup, reassessed. Patient is mildly hypoxic and feels secondary to her rate. She has atrial fibrillation appears to be paroxysmal, and she is not anticoagulated however she does normally have rate control, due to her irate and symptomatic with hypoxia and his breath sounds, I suspect she has had an exacerbation of heart failure at [facility] or atrial fibrillation or vice versa. Treat her symptomatically, reassessed hold Cardizem drip for now she is responsive metoprolol. - Reevaluation(s) Reevaluation #1: Admitted to Dr Kasper for Exacerbation, A. fib with RVR. Vital Signs Temperature 97.9 F 10/08/16 12:49 Pulse Rate 132 10/08/16 12:49 Respiratory Rate 20 10/08/16 12:49 Blood Pressure 166/87 10/08/16 12:49 O2 Sat by Pulse Oximetry 90 L 10/08/16 12:49 Temperature 97.9 F 10/08/16 12:49 Pulse Rate 91 10/08/16 13:51 Respiratory Rate 20 10/08/16 13:51 Blood Pressure 148/87 10/08/16 13:51 O2 Sat by Pulse Oximetry 91 L 10/08/16 13:51 Oxygen Delivery Oxygen Delivery Simple Mask Arrhythmia/Palpitations - Differential Diagnosis Differential Diagnosis: Likely: palpitations, ventricular premature beats, ventricular tachycardia - Medical Records Medical records reviewed: Yes I reviewed the patient's medical records. - Lab Data Lab results reviewed: Yes I reviewed the patient's lab results. Result diagrams: 10/08/16 13:34 10/08/16 13:34 Lab Results 10/08/16 10/08/16 10/08/16 Range/Units 13:34 13:34 13:34 WBC 13.0 H (4.3-11.1) K/mcL RBC 3.96 (3.82-4.97) M/mcL Hgb 11.8 (11.5-15.4) g/dL Hct 36.9 (35.3-44.9) % MCV 93.2 (83.0-100.0) fL MCH 29.8 (28.0-33.3) pg MCHC 32.0 (31.6-35.5) g/dL RDW 15.1 H (11.5-14.5) % Plt Count 186 (140-400) K/mcL MPV 10.6 (9.4-12.4) fL Immature Gran % 0.8 (0-4) % Seg Neutrophils % 84.5 % Lymphocytes % 7.1 % Monocytes % 7.3 % Eosinophils % 0.1 % Basophils % 0.2 % Neutrophils # 10.9 H (1.6-8.9) K/mcL Lymphocytes # 0.9 (0.6-4.6) K/mcL Monocytes # 1.0 (0.0-1.3) K/mcL Eosinophils # 0.0 (0.0-0.6) K/mcL Basophils # 0.0 (0.0-0.2) K/mcL Immature Plt Fraction 6.9 H (1.1-6.1) % PT 12.3 H (9.4-12.1) Seconds INR 1.1 APTT 25.5 L (26.0-36.0) Seconds Sodium 140 (136-145) mEq/L Potassium 3.1 L (3.5-4.5) mEq/L Chloride 95 L (98-109) mEq/L Carbon Dioxide 35 H (19-29) mEq/L BUN 25 H (7-20) mg/dL Creatinine 1.26 H (0.57-1.11) mg/dL Est GFR ( Amer) 51 L (> 60) Est GFR (Non-Af Amer) 42 L (> 60) BUN/Creatinine Ratio 20 (6-26) Glucose 130 H (70-99) mg/dL Calculated Osmolality 296 (280-300) Calcium 9.9 (8.6-10.8) mg/dL Troponin I (0-0.03) ng/mL TSH 1.357 (0.350-4.840) mcIU/mL 10/08/16 Range/Units 13:34 WBC (4.3-11.1) K/mcL RBC (3.82-4.97) M/mcL Hgb (11.5-15.4) g/dL Hct (35.3-44.9) % MCV (83.0-100.0) fL MCH (28.0-33.3) pg MCHC (31.6-35.5) g/dL RDW (11.5-14.5) % Plt Count (140-400) K/mcL MPV (9.4-12.4) fL Immature Gran % (0-4) % Seg Neutrophils % % Lymphocytes % % Monocytes % % Eosinophils % % Basophils % % Neutrophils # (1.6-8.9) K/mcL Lymphocytes # (0.6-4.6) K/mcL Monocytes # (0.0-1.3) K/mcL Eosinophils # (0.0-0.6) K/mcL Basophils # (0.0-0.2) K/mcL Immature Plt Fraction (1.1-6.1) % PT (9.4-12.1) Seconds INR APTT (26.0-36.0) Seconds Sodium (136-145) mEq/L Potassium (3.5-4.5) mEq/L Chloride (98-109) mEq/L Carbon Dioxide (19-29) mEq/L BUN (7-20) mg/dL Creatinine (0.57-1.11) mg/dL Est GFR ( Amer) (> 60) Est GFR (Non-Af Amer) (> 60) BUN/Creatinine Ratio (6-26) Glucose (70-99) mg/dL Calculated Osmolality (280-300) Calcium (8.6-10.8) mg/dL Troponin I 0.02 (0-0.03) ng/mL TSH (0.350-4.840) mcIU/mL - Radiology Data Radiology results reviewed: Yes I reviewed the patient's radiology results. Chest X-Ray 10/08/16 12:58 IMPRESSION: Bibasilar opacities have slightly increased from prior chest radiograph on 09/24/2016 and are suspicious for pneumonia with associated pleural effusions. D/ / Liu Reynoso MD / Liu Reynoso MD Interpreting Provider: Liu Reynoso MD - EKG Data EKG attestation: Yes I reviewed and interpreted this EKG. Rate: tachycardia Rhythm: A.Fib (128 bpm QRS 89 QTC 394 regular really irregular no ST segment elevations or depressions.) [place]/QRS: normal Interpretation: nonspecific ST-T wave changes (Afib not present EKG from 2016) - Core Measures AMI Core Measures Followed: No Measure Exclusions: not indicated
[2016-10-08] MEDS ORDERED: *HR* Metoprolol 5 MG/5 ML VIAL IVP ONE (13:31)
--- NOTE | 2016-10-08 13:32 | Emergency Department Note ---
START Narrative - START START: I examined this patient and my medical decision-making was reviewed with the CT TECH/PA/Advanced Practice Nurse/Resident Physician. I agree with the documented findings, disposition and treatment plan as described except to the extent set forth below. ED attending note: Patient seen with emergency medicine resident Dr. Leblanc. Please see a copy of his note for details of the H&P, evaluation, management and disposition of this patient. We independently had [id number] contact with the patient Briefly: A 70-year-old female by EMS for palpitations shortness of breath. Recently diagnosed with A. fib. Presents with A. fib with RVR in the 120s to 140s. Patient getting for 5 mg of IV metoprolol. Labs and x-rays are pending. Admission anticipated. Provided 45 minutes of critical care service for this patient. Disposition pending.
[2016-10-08 13:42] LABS: Basophils % 0.2 %; Eosinophils % 0.1 %; Hematocrit 36.9 % (35.3-44.9); Hemoglobin 11.8 g/dL (11.5-15.4); Immature Granulocytes % 0.8 % (0-4); Immature Platelets 6.9 % (1.1-6.1); Lymphocytes # 0.9 K/mcL (0.6-4.6); Lymphocytes % 7.1 %; Mean Corpuscular Hemoglobin 29.8 pg (28.0-33.3); Mean Corpuscular Volume 93.2 fL (83.0-100.0); Mean Platelet Volume 10.6 fL (9.4-12.4); Monocytes % 7.3 %; Neutrophils # 10.9 K/mcL (1.6-8.9); Platelet Count 186 K/mcL (140-400); Red Blood Count 3.96 M/mcL (3.82-4.97); Red Cell Distribution Width 15.1 % (11.5-14.5); Segmented Neutrophils % 84.5 %
[2016-10-08 13:48] LABS: INR 1.1; Prothrombin Time 12.3 Seconds (9.4-12.1)
[2016-10-08 13:50] LABS: Activated Partial Thrombo Time 25.5 Seconds (26.0-36.0)
[2016-10-08 13:56] LABS: Calcium 9.9 mg/dL (8.6-10.8); Potassium 3.1 mEq/L (3.5-4.5)
[2016-10-08 14:55] LABS: Thyroid Stimulating Hormone 1.357 mcIU/mL (0.350-4.840)
--- NOTE | 2016-10-08 16:07 | Internal Med History&Physical ---
Date of Encounter: 10/08/16 Time of Encounter: 15:56 Assessment and Plan (1) Acute on chronic respiratory failure Current visit: No Status: Acute possible 2/2 afib with RVR. s/p lopressor at ED, HR currently stable at 90s. will call cardio consult, if HR remians uncontrolled, will start on cardizem drip. last ECHO on 09/15 shows normal LVEF with mild DD> chest sounds clear, euvolemic on exam will restart her home meds continue high flow o2 to maintain sats 88-92% BIPAP prn by the bedside. CXr shows bibasilar opacities which might be from the pneumonia from last admission/atelectasis. clinically, she does not seem to have another pneumonia and she just finished a course of antibiotics. will hold off on antibiotics at this time. Qualifiers: Respiratory failure complication: hypoxia Qualified Code(s): J96.21 - Acute and chronic respiratory failure with hypoxia (2) Diastolic heart failure Current visit: Yes Status: Acute euvolemic at present. continue home meds Qualifiers: Heart failure chronicity: chronic Qualified Code(s): I50.32 - Chronic diastolic (congestive) heart failure (3) Atrial fibrillation with RVR Current visit: No Status: Acute rate much controlled now after a dose of lopressor. will continue the home meds, if HR is uncontrolled, will start the cardizem drip. consult cardiology for any further intervention (4) Hypertension Current visit: No Status: Chronic BP stable, Qualifiers: Hypertension type: essential hypertension Qualified Code(s): I10 - Essential (primary) hypertension (5) Morbid obesity with BMI of 45.0-49.9, adult Current visit: No Status: Chronic (6) Obesity hypoventilation syndrome Current visit: No Status: Chronic Internal Medicine - H&P: HPI Chief complaint: fast heart rate Admitted From: Emergency Dept Plans for Post Hospital Care: [facility] History of present illness: Ms. Pollack is a 70 year old female with PMH of T2Dm, COPD, CHF, prior PE, HLD, HTN, anxiety, CKD, and morbid obesity who was recently discharged for management of acute respiratory failure secondary to CHF decompensation, COPD exacerbation, and Pneumonia. she was dc on 4-5 l of oxygen with advice for BIPAP support as per pulmonary. starting yesterday, she started on c/o palpitations and it was noted that the HR went up to 160s as per the daughter. SHe denies having any chest pain or sob at that time but it was hard to mainatin her sats with high flow o2 and she was still sating ~high 80s. she has been doing fine otherwise as per the daughter, no cough, no fever or sob. It was when she started having tachycardia and desaturation, then the NH sent the patient to ED. she says that she just saw cardiology yesterday and meena only change in her meds was addition of norvasc. AT the time of my assesment, she is sitting comfortable without any respiratory distress. denies any chest pain, palpitaion or sob currently on 10l and sating 90%. Past Med Surg Social Fam HX - Past Medical History Medical history: CHF, COPD, DVT, diabetes, hyperlipidemia, hypertension Psychiatric history: anxiety, depression - Past Surgical History Surgical History: appendectomy, - Social History Smoking Status: Former smoker Smokeless Tobacco Status: No Alcohol use: none Drug use: none - Family History Mother Family Member Ethnicity: Non- Living Status: Hx Family Cardiac Disorders: Yes Hx Family Respiratory Disorders: Yes Hx Family Cancer: Yes Hx Family GI Disorders: No Hx Family Endocrine Disorder: No Hx Family Neuromuscular Disorders: No Hx Family Neurologic Disorders: No Hx Family HEENT Disorders: No Hx Family Autoimmune Disorders: No Father Living Status: Hx Family Cancer: Yes Internal Medicine - H&P: Meds Albuterol Sulfate [Albuterol Inhaler] 2 puff IH Q4H PRN 08/23/16 [History] Amitriptyline [Elavil] 10 mg PO HS 08/23/16 [History] Ascorbate Calcium [Vitamin C] 500 mg PO DAILY 08/23/16 [History] Aspirin 81 mg PO DAILY 08/23/16 [History] Calcium Carbonate/Vitamin D3 [Calcium 600 with Vit D Chew Tb] 1 each PO DAILY [History] Ergocalciferol (VITAMIN D2) [Vitamin D] 400 unit PO DAILY 08/23/16 [History] Fish Oil/Dha/Epa [Fish Oil 1,200 mg Fish Oil] 1 cap PO DAILY 08/23/16 [History] Fluticasone Propionate Nasal [Flonase] 50 mcg NS DAILY PRN 08/23/16 [History] Hydroxyzine HCl 25 mg PO HS PRN 08/23/16 [History] Metoprolol [Lopressor] 100 mg PO BID 08/23/16 [History] Tiotropium [place] [Spiriva] 18 mcg IH DAILY 08/23/16 [History] Vitamin B Complex 1 cap PO DAILY 08/23/16 [History] Budesonide/Formoterol 160/4.5 [Symbicort 160/4.5] 2 puff IH BIDR #1 inhaler [Rx] Ipratropium/Albuterol Neb [Duoneb] 3 ml IH QIDR PRN #100 aerosol 08/27/16 [Rx] Metformin [Glucophage] 500 mg PO BID #60 tablet 08/27/16 [Rx] Nystatin POWDER [Nystop] 1 appl TP BID #1 bottle 08/27/16 [Rx] Amlodipine [Norvasc] 5 mg PO DAILY 09/21/16 [History] Oxygen 2 l NS CONT 09/21/16 [History] Alprazolam [Xanax 0.25 MG Tablet] 0.5 mg PO BID #30 tablet 10/01/16 [Rx] Budesonide Neb [Pulmicort Neb] 0.5 mg IH BIDR inhsol 10/01/16 [Rx] Diltiazem [Cardizem] 30 mg PO Q8HR tablet 10/01/16 [Rx] GuaiFENesin/Dextromethorphan [Robitussin/Dm] 10 ml PO BID PRN #0 udc 10/01/16 [ Rx] Acetaminophen [Tylenol] 650 mg PO Q6HR 10/08/16 [History] Furosemide [Lasix] 40 mg PO BID 10/08/16 [History] Insulin LISPRO [HumaLOG] 2 - 12 units SQ TIDWM 10/08/16 [History] Lactulose [Enulose] 20 gm PO BID 10/08/16 [History] Lovastatin 10 mg PO DAILY 10/08/16 [History] Sennosides/Docusate Sodium [Senna Plus] 1 tab PO BID 10/08/16 [History] Allergies No Known Allergies Allergy (Verified 08/23/16 19:46) All Systems PM: A 10-system review of systems was performed and is negative for pertinent findings except as documented above in the HPI. - Constitutional Vitals: Temp Pulse Resp BP Pulse Ox 97.9 F 91 20 148/87 91 L 10/08/16 12:49 10/08/16 13:51 10/08/16 13:51 10/08/16 13:51 10/08/16 13:51 General appearance: Present: A&O X 3 Exam: - Head Head exam: Present: atraumatic, normocephalic - Eye Eye exam: Present: conjuntiva pink, sclera anicteric - Respiratory Respiratory exam: b/l clear. Absent: respiratory distress, wheezes - Cardiovascular Cardiovascular exam: Present: RRR, +S1, +S2 - GI/Abdominal GI/Abdominal exam: Present: distended (obese), normal bowel sounds, soft. Absent: tenderness - Extremities Exam Extremities exam: Present: pedal edema, warm, radial pulses palpable and symetrical. Absent: calf tenderness - Neurological Exam Neurological exam: Present: alert, oriented X3, no focal deficits - Psychiatric Psychiatric exam: Present: normal affect, normal mood Internal Med - H&P Results - Labs CBC & Chem 7: 10/08/16 13:34 10/08/16 13:34
[2016-10-08] MEDS ORDERED: Naloxone 0.4 MG/ML INJ IVP PRN (16:43)
[2016-10-08] MEDS ORDERED: Ipratropium/Albuterol Neb 3 ML IH PRN (16:49)
[2016-10-08] MEDS ORDERED: D5% in Water 1,000 ML IV PRN (16:50)
[2016-10-08] MEDS ORDERED: *HR* Dextrose 50 % in Water (Syg) 50 ML SYRINGE IVP PRN (16:50)
[2016-10-08] MEDS ORDERED: Dextrose Gel 15 GM PO PRN ×2 (16:50)
[2016-10-08] MEDS: Potassium Chloride 40 MEQ, Lidocaine 1% 2 ML in D5% in Water 500 ML IVPB ONE ×2 (20:00→20:28)
[2016-10-08] MEDS: Insulin LISPRO 300 UNITS/3 ML VIAL SQ SCH ×2 (20:28→21:17)
[2016-10-08] MEDS ORDERED: Sennosides/Docusate Sodium TABLET PO SCH (21:00)
[2016-10-08] MEDS: ALPRAZolam 0.25 MG TABLET PO SCH (21:10)
[2016-10-08] MEDS: Furosemide 40 MG TABLET PO SCH (21:11)
[2016-10-08] MEDS: Metoprolol 100 MG TABLET PO SCH (21:12)
[2016-10-08] MEDS: Sennosides/Docusate Sodium TABLET PO SCH ×2 (21:12→21:14)
[2016-10-08] MEDS: Lactulose Oral Soln 20 GM/30 ML UDC PO SCH (21:13)
[2016-10-08] MEDS: *HR* Heparin 5,000 UNIT/ML VIAL SQ SCH (21:15)
[2016-10-08] MEDS: Budesonide/Formoterol 160/4.5 MDI IH SCH (23:00)
[2016-10-09 05:42] LABS: Basophils % 0.3 %; Eosinophils % 0.2 %; Hematocrit 32.4 % (35.3-44.9); Hemoglobin 10.4 g/dL (11.5-15.4); Immature Granulocytes % 0.9 % (0-4); Lymphocytes # 1.1 K/mcL (0.6-4.6); Lymphocytes % 11.9 %; Mean Corpuscular HGB Conc 32.1 g/dL (31.6-35.5); Mean Corpuscular Hemoglobin 30.3 pg (28.0-33.3); Mean Corpuscular Volume 94.5 fL (83.0-100.0); Mean Platelet Volume 10.8 fL (9.4-12.4); Monocytes # 0.8 K/mcL (0.0-1.3); Monocytes % 8.9 %; Neutrophils # 6.9 K/mcL (1.6-8.9); Platelet Count 149 K/mcL (140-400); Red Blood Count 3.43 M/mcL (3.82-4.97); Red Cell Distribution Width 15.2 % (11.5-14.5); Segmented Neutrophils % 77.8 %
[2016-10-09 06:02] LABS: Magnesium 1.4 mg/dL (1.6-2.6); Potassium 3.3 mEq/L (3.5-4.5)
[2016-10-09] MEDS: Lactulose Oral Soln 20 GM/30 ML UDC PO SCH ×2 (08:37→21:51)
[2016-10-09] MEDS: Insulin LISPRO 300 UNITS/3 ML VIAL SQ SCH ×7 (08:38→21:51)
[2016-10-09] MEDS: Furosemide 40 MG TABLET PO SCH ×2 (08:39→17:06)
[2016-10-09] MEDS: ALPRAZolam 0.25 MG TABLET PO SCH ×2 (08:39→21:51)
[2016-10-09] MEDS: Metoprolol 100 MG TABLET PO SCH ×2 (08:39→21:51)
[2016-10-09] MEDS: Aspirin 81 MG TAB.CHEW PO SCH (08:39)
[2016-10-09] MEDS: Sennosides/Docusate Sodium TABLET PO SCH ×2 (08:39→21:51)
[2016-10-09] MEDS: *HR* Heparin 5,000 UNIT/ML VIAL SQ SCH ×2 (08:45→17:12)
--- NOTE | 2016-10-09 08:45 | Cardiology Consult Note ---
Date of Encounter: 10/09/16 Time of Encounter: 08:45 Assessment and Plan (1) Acute on chronic respiratory failure Current Visit: No Status: Acute Per Cardiology: Recent DC for acute on chronic resp failure in setting of pneumonia. Now improved. On nebs. Management per primary service. Not currently on antibiotics. Afebrile. WBC initially 13. Chest X-Ray 10/08/16 12:58 IMPRESSION: Bibasilar opacities have slightly increased from prior chest radiograph on 09/24/2016 and are suspicious for pneumonia with associated pleural effusions. CXR as above. Further management per primary service. SOB has improved during stay per patient and daughter. Qualifiers: Respiratory failure complication: hypoxia Qualified Code(s): J96.21 - Acute and chronic respiratory failure with hypoxia (2) Atrial fibrillation with RVR Current Visit: Yes Status: Acute Per Cardiology: No known history of atrial fibrillation until recent hospital stay at which time she was diagnosed with A. fib. Average heart rate on telemetry last 24 hours 81. Current and recent ECGs and telemetry strips from 08/2016 reviewed and discussed with Dr. Lobo West-- appears to mainly show SR with SR with PACs and mutifocal atrial rhythm with undetermined possible afib. Suspect resp. status contributing factor to afib with RVR. TSH okay, troponin negative 1. Norvasc discontinued. Cardizem 30 mg by mouth every 6 hours converted to Cardizem CD 180 mg by mouth daily. SBP in the 130's. On asa only, apparently developed rectal bleeding with Hep. and 1 dose of Eliquis last stay. Reports no falls. (3) Hypokalemia Current Visit: Yes Status: Acute Per Cardiology: K+ = 3.3, will replace. On lasix 40mg PO BID. Net I&O +434ml. Euvolemic on exam. BNP only 111. recent echo 07/2016 showed EF preserved 55%, mild diastolic dysfunction. (4) Hypomagnesemia Current Visit: Yes Status: Acute Per Cardiology: Mg+ = 1.4, will replace. Suspect in relation to diuresis. Discussion w patient/family: The assessment and plan as outlined above was discussed with the patient and/or family members who expressed understanding and agreement. All questions were answered. Thank you for involving us in the care of your patient. Please call with any questions. History of Present Illness Consult date: 10/09/16 Requesting physician: Alan Liang Consult reason: Afib RVR Chief complaint: SOB History of present illness: Ms. Pollack is a 70 year old female with a relevant past mental history of diabetes mellitus type 2, COPD requiring home oxygen 24 7, CHF, history of PE 40 years ago during , hyperlipidemia, hypertension, COPD, morbid obesity, and anxiety. Recently discharged for acute respiratory failure secondary to pneumonia, COPD exacerbation, and CHF. [facility] and had recurrent admission for worsening shortness of breath and hypoxia. Cardiology consult for concerns of A. fib with RVR. Patient and daughter report no known history of atrial fibrillation except during last hospital visit was told she had A. fib with RVR-- cardiology did not see during that stay. Apparently developed bright red rectal bleeding with heparin at that time and received one dose of Eliquis which was subsequently discontinued and patient sent home on aspirin only. Patient saw Dr. Guillory for follow-up this past Sunday and started on Norvasc for blood pressure control. She reports she presented back to the hospital for worsening shortness of breath and daughter reports oxygen saturation in the 60s. Also concerns of elevated heart rates in the 130s to 160s during these events. She denies any chest pain. Denies any palpitations however she did "feel thumping sensations in her head". Shortness of breath has now improved. She denies any current bleeding or blood loss. Denies any recent falls. Past Med Surg Social Fam HX - Past Medical History Attestation: Yes The following information was validated with the patient. Source: patient, old records reviewed, obtained from family Medical history: CHF, COPD, DVT, diabetes, hyperlipidemia, hypertension Psychiatric history: anxiety, depression - Past Surgical History Surgical History: appendectomy, - Social History Smoking Status: Former smoker Smokeless Tobacco Status: No Alcohol use: none Drug use: none - Family History Mother Family Member Ethnicity: Non- Living Status: Hx Family Cardiac Disorders: Yes Hx Family Respiratory Disorders: Yes Hx Family Cancer: Yes Hx Family GI Disorders: No Hx Family Endocrine Disorder: No Hx Family Neuromuscular Disorders: No Hx Family Neurologic Disorders: No Hx Family HEENT Disorders: No Hx Family Autoimmune Disorders: No Father Living Status: Hx Family Cancer: Yes Medications and Allergies Albuterol Sulfate [Albuterol Inhaler] 2 puff IH Q4H PRN 08/23/16 [History] Amitriptyline [Elavil] 10 mg PO HS 08/23/16 [History] Ascorbate Calcium [Vitamin C] 500 mg PO DAILY 08/23/16 [History] Aspirin 81 mg PO DAILY 08/23/16 [History] Calcium Carbonate/Vitamin D3 [Calcium 600 with Vit D Chew Tb] 1 each PO DAILY [History] Ergocalciferol (VITAMIN D2) [Vitamin D] 400 unit PO DAILY 08/23/16 [History] Fish Oil/Dha/Epa [Fish Oil 1,200 mg Fish Oil] 1 cap PO DAILY 08/23/16 [History] Fluticasone Propionate Nasal [Flonase] 50 mcg NS DAILY PRN 08/23/16 [History] Hydroxyzine HCl 25 mg PO HS PRN 08/23/16 [History] Metoprolol [Lopressor] 100 mg PO BID 08/23/16 [History] Tiotropium [place] [Spiriva] 18 mcg IH DAILY 08/23/16 [History] Vitamin B Complex 1 cap PO DAILY 08/23/16 [History] Budesonide/Formoterol 160/4.5 [Symbicort 160/4.5] 2 puff IH BIDR #1 inhaler [Rx] Ipratropium/Albuterol Neb [Duoneb] 3 ml IH QIDR PRN #100 aerosol 08/27/16 [Rx] Metformin [Glucophage] 500 mg PO BID #60 tablet 08/27/16 [Rx] Nystatin POWDER [Nystop] 1 appl TP BID #1 bottle 08/27/16 [Rx] Amlodipine [Norvasc] 5 mg PO DAILY 09/21/16 [History] Oxygen 2 l NS CONT 09/21/16 [History] Alprazolam [Xanax 0.25 MG Tablet] 0.5 mg PO BID #30 tablet 10/01/16 [Rx] Budesonide Neb [Pulmicort Neb] 0.5 mg IH BIDR inhsol 10/01/16 [Rx] Diltiazem [Cardizem] 30 mg PO Q8HR tablet 10/01/16 [Rx] GuaiFENesin/Dextromethorphan [Robitussin/Dm] 10 ml PO BID PRN #0 udc 10/01/16 [ Rx] Acetaminophen [Tylenol] 650 mg PO Q6HR 10/08/16 [History] Furosemide [Lasix] 40 mg PO BID 10/08/16 [History] Insulin LISPRO [HumaLOG] 2 - 12 units SQ TIDWM 10/08/16 [History] Lactulose [Enulose] 20 gm PO BID 10/08/16 [History] Lovastatin 10 mg PO DAILY 10/08/16 [History] Sennosides/Docusate Sodium [Senna Plus] 1 tab PO BID 10/08/16 [History] Allergies No Known Allergies Allergy (Verified 08/23/16 19:46) All Systems Review: A 10-system review of systems was performed and is negative for pertinent findings except as documented above in the HPI. - Cardiovascular Cardiovascular: as per HPI, dyspnea at rest, dyspnea on exertion Physical Examination Vital Signs, Last 4 Hours Temp Pulse Resp BP Pulse Ox 10/09/16 08:08 97.9 F 81 18 135/50 92 L 10/09/16 05:11 98.4 F 76 17 135/50 95 Selected Entries 10/08/16 12:49 10/08/16 20:11 10/09/16 05:11 Pulse Rate 132 101 76 10/09/16 08:08 Pulse Rate 81 General: Conversant, No Apparent Distress HEENT: Atraumatic, Normocephaly, Mucus Membranes Moist Neck: No JVD Cardiac: Reg Rate and Rhythm, Normal S1 and S2, No Murmur Lungs: Other (Decreased breath sounds bilateral bases) Neuro: Alert and responsive, No focal deficits noted Abdomen: Soft, Non-Tender, Other (obese) Skin: No rashes noted on visualized skin Musculoskeletal: No Chest Wall Tenderness Extremities: No Edema, Normal Pulses Results 10/09/16 05:30 10/09/16 05:30 Lab Results Laboratory Tests 10/08/16 10/08/16 10/08/16 13:34 13:34 13:34 WBC 13.0 H Hgb 11.8 Hct 36.9 INR 1.1 Potassium Creatinine 1.26 H Est GFR (Non-Af Amer) 42 L Magnesium Troponin I B-Natriuretic Peptide TSH 1.357 10/08/16 10/09/16 10/09/16 13:34 05:30 05:30 WBC 8.9 Hgb 10.4 L Hct 32.4 L INR Potassium 3.3 L Creatinine 1.12 H Est GFR (Non-Af Amer) 48 L Magnesium 1.4 L Troponin I 0.02 B-Natriuretic Peptide TSH 10/09/16 05:30 WBC Hgb Hct INR Potassium Creatinine Est GFR (Non-Af Amer) Magnesium Troponin I B-Natriuretic Peptide 111 H TSH ITS Impressions Chest X-Ray 10/08/16 12:58 IMPRESSION: Bibasilar opacities have slightly increased from prior chest radiograph on 09/24/2016 and are suspicious for pneumonia with associated pleural effusions. D/ / Liu Reynoso MD / Liu Reynoso MD Interpreting Provider: Liu Reynoso MD Intake & Output 10/06/16 10/07/16 10/08/16 10/09/16 22:59 22:59 23:59 23:59 Intake Total Output Total Balance Weight Active Medications Albuterol/Ipratropium (Duoneb) 3 ml IH [id number] PRN; Protocol PRN Reason: Shortness Of Breath/Wheezing Stop: 04/09/17 16:50 Alprazolam (Xanax) 0.5 mg PO BID SABRINA PRN Reason: Protocol Stop: 04/09/17 21:01 Last Admin: 10/08/16 21:10 Dose: 0.5 mg Amitriptyline HCl (Elavil) 10 mg PO HS SABRINA Stop: 04/09/17 21:01 Last Admin: 10/08/16 21:11 Dose: 10 mg Amlodipine Besylate (Norvasc) 5 mg PO DAILY SABRINA PRN Reason: Protocol Stop: 04/10/17 09:01 Aspirin (Aspirin) 81 mg PO DAILY SABRINA Stop: 04/10/17 09:01 Budesonide/Formoterol Fumarate (Symbicort) 2 puff IH BIDR SABRINA PRN Reason: Protocol Stop: 04/09/17 22:01 Last Admin: 10/08/16 23:00 Dose: Not Given Dextrose/Water (Dextrose 50% (Syg)) 25 ml IVP AD PRN PRN Reason: Hypoglycemia Stop: 04/09/17 16:51 Diltiazem HCl (Cardizem) 30 mg PO Q6HR [facility] Stop: 04/09/17 18:01 Last Admin: 10/09/16 07:03 Dose: 30 mg Furosemide (Lasix) 40 mg PO BIDDIURETIC [facility]RINA Stop: 04/09/17 17:01 Last Admin: 10/08/16 21:11 Dose: 40 mg Glucagon (Glucagen) 1 mg IM ONCE PRN PRN Reason: Hypoglycemia Stop: 04/09/17 16:51 Glucose (Gluctose) 15 gm PO ONCE PRN PRN Reason: Hypoglycemia Stop: 04/09/17 16:51 Glucose (Gluctose) 30 gm PO ONCE PRN PRN Reason: Hypoglycemia Stop: 04/09/17 16:51 Heparin Sodium (Porcine) (Heparin) 5,000 unit SQ Q12HCO [facility] Stop: 04/09/17 18:01 Last Admin: 10/08/16 21:15 Dose: Not Given Dextrose (Dextrose 5%) 1,000 mls @ 100 mls/hr IV CONT PRN PRN Reason: HYPOGLYCEMIA Stop: 04/09/17 16:51 Insulin Human Lispro (Humalog) 4 units 0.05 units/kg (4 units) SQ TIDWM [facility] Stop: 04/09/17 17:01 Last Admin: 10/08/16 20:28 Dose: Not Given Insulin Human Lispro (Humalog) 0 units SQ TIDAC [facility] PRN Reason: Protocol Stop: 04/10/17 07:31 Insulin Human Lispro (Humalog) 0 units SQ HS [facility] PRN Reason: Protocol Stop: 04/09/17 21:01 Last Admin: 10/08/16 21:17 Dose: Not Given Lactulose (Lactulose) 20 gm PO BID [facility] Stop: 04/09/17 21:01 Last Admin: 10/08/16 21:13 Dose: 20 gm Lovastatin (Mevacor) 10 mg PO DAILY [facility] Stop: 04/10/17 09:01 Metoprolol Tartrate (Lopressor) 100 mg PO BID [facility] Stop: 04/09/17 21:01 Last Admin: 10/08/16 21:12 Dose: 100 mg Naloxone HCl (Narcan) 0.4 mg IVP Q2MIN PRN PRN Reason: Opioid Reversal Stop: 04/09/17 16:44 Senna/Docusate Sodium (Senna Plus) 1 each PO BID [facility]RINA PRN Reason: Protocol Stop: 04/09/17 16:52 Last Admin: 10/08/16 21:14 Dose: 1 each Tiotropium [place] (Spiriva) 18 mcg IH DAILY [facility] PRN Reason: Protocol Stop: 04/10/17 09:01 - Imaging and Cardiology Chest Xray: report reviewed Echo: report reviewed - EKG Interpretation EKG results cardiology: personally reviewed (ST with PACs vs Afib), other (24 hr tele reviewed with avg HR 81, SR with PACs vs afib) Consult Discharge Plan - Plan Referrals: Eduardo Hernandez Jr, MD [Primary Care Provider] -
[2016-10-09] MEDS ORDERED: WATER IVPB ONE ×2 (08:50→09:15)
[2016-10-09] MEDS ORDERED: D5 IVPB ONE ×2 (08:50→09:15)
[2016-10-09] MEDS ORDERED: MAGNESIUM SULFATE IVPB ONE ×2 (08:50→09:15)
[2016-10-09] MEDS ORDERED: amLODIPine 5 MG TABLET PO SCH (09:00)
[2016-10-09] MEDS ORDERED: Magnesium Sulfate 2 GM in D5% in Water 100 ML IVPB ONE (09:15)
[2016-10-09] MEDS: Tiotropium 18 MCG inhalation IH SCH (10:42)
[2016-10-09] MEDS: Diltiazem CD (24hr) 180 MG CAPSULE PO SCH (10:50)
[2016-10-09] MEDS: Budesonide/Formoterol 160/4.5 MDI IH SCH ×2 (10:54→21:22)
[2016-10-09] MEDS: Magnesium Sulfate 2 GM in D5% in Water 100 ML IVPB SCH ×2 (10:59→13:24)
[2016-10-09] MEDS: Ipratropium/Albuterol Neb 3 ML IH SCH ×2 (16:25→21:22)
--- NOTE | 2016-10-09 16:55 | Electrocardiograph Report ---
[place] [id number] Test Date: 2016-10-08 Pat Name: Garima Pollack Department: 103 Room: [facility] Gender: F Analysis Manager: : 1945 Requested By: Saurabh Morales Order Number: [id number] Reading MD: Ki Nicholson DO Measurements Intervals [place] Rate: 96 P: -41 [place]: 95 QRS: -32 QRSD: 110 T: 63 QT: 366 QTc: 420 Interpretive Statements SINUS RHYTHM WITH PACs MARKED LEFT AXIS DEVIATION Electronically Signed On 10-09-2016 16:53:48 EDT by Ki Nicholson DO
--- NOTE | 2016-10-09 17:02 | Internal Med Progress Note ---
Date of Encounter: 10/09/16 Time of Encounter: 16:58 - Assessment and plan (1) Acute on chronic respiratory failure Current Visit: No Status: Acute Assessment and plan: Acute on chronic respiratory failure with hypoxia and hypercapnia in this individual is due to underlying advanced chronic obstructive pulmonary disease, obesity hypoventilation syndrome , obstructive sleep apnea (likely advanced, former cigarette smoker) and chronic heart dysfunction (diastolic heart dysfunction, pulmonary hypertension, cor pulmonale). she was recently discharged from the hospital and potts scompleted antibiotics for pneumonia. as per the daughter, her baseline oxygen requirement is 5-6 L to maintain sats from 90-92%. Chest x-ray shows bilateral opacities, slightly increased from before, however she does not have any cough or fever or worsening respiratory symptoms and reports that she is actually feeling bettr will hold off on antibiotics, will titrate oxygen to maintain sats 90-92%. HR much controlled today, appreciate recommendtaions will monitor overnight, CPAP pvernight for CAMILLE. will add incentive spirometry. Qualifiers: Respiratory failure complication: hypoxia Qualified Code(s): J96.21 - Acute and chronic respiratory failure with hypoxia (2) Diastolic heart failure Current Visit: Yes Status: Acute Assessment and plan: Euvolemic on exam, will continue home meds. Qualifiers: Heart failure chronicity: chronic Qualified Code(s): I50.32 - Chronic diastolic (congestive) heart failure (3) Atrial fibrillation with RVR Current Visit: No Status: Acute Assessment and plan: [place] she was on cardizem 30 q8hr, which has been increased now to 30 q6h when she presented with RVR cardio is foloowing and will follow their recommendations not on AC due to rectal bleed. HR controlled and is at 90s, BP stable (4) Hypertension Current Visit: No Status: Chronic Assessment and plan: stable. Qualifiers: Hypertension type: essential hypertension Qualified Code(s): I10 - Essential (primary) hypertension (5) Morbid obesity with BMI of 45.0-49.9, adult Current Visit: No Status: Chronic (6) Obesity hypoventilation syndrome Current Visit: No Status: Chronic Assessment and plan: continue CPAP at night. - Time Spent With Patient 25 - 35 minutes - Subjective Interval history: ángela seen at the bedside, reports that she feels better, no sob, not in any acute respiratory distress. denies chest pain , cough or palpitation. currently on 8 l and sating 90%, has been on BIPAP overnight. - Constitutional Vitals: Temp Pulse Resp BP Pulse Ox 97.6 F 74 18 136/53 94 L 10/09/16 16:00 10/09/16 16:00 10/09/16 16:25 10/09/16 16:00 10/09/16 16:25 General appearance: Present: A&O X 3 Exam: - Head Head exam: Present: atraumatic, normocephalic - Eye Eye exam: Present: conjuntiva pink, sclera anicteric - Respiratory Respiratory exam: b/l decreased breath sounds Absent: respiratory distress, wheezes - Cardiovascular Cardiovascular exam: Present: RRR, +S1, +S2 - GI/Abdominal GI/Abdominal exam: Present: distended (obese), normal bowel sounds, soft. Absent: tenderness - Extremities Exam Extremities exam: Present: pedal edema, warm, radial pulses palpable and symetrical. Absent: calf tenderness - Neurological Exam Neurological exam: Present: alert, oriented X3, no focal deficits - Psychiatric Psychiatric exam: Present: normal affect, normal mood Internal Medicine: Result - Labs CBC & Chem 7: 10/09/16 05:30 10/09/16 05:30 Labs: Short CBC 10/09/16 Range/Units 05:30 WBC 8.9 (4.3-11.1) K/mcL Hgb 10.4 L (11.5-15.4) g/dL Hct 32.4 L (35.3-44.9) % Plt Count 149 (140-400) K/mcL Neutrophils # 6.9 (1.6-8.9) K/mcL BMP 10/09/16 05:30 Sodium 139 Potassium 3.3 L Chloride 97 L Carbon Dioxide 34 H BUN 21 H Creatinine 1.12 H Glucose 90 Calcium 9.0 - ABG Interpretation ABG results: PT/INR, D-dimer PT 12.3 Seconds (9.4-12.1) H 10/08/16 13:34 Consult Discharge Plan - Plan Referrals: Eduardo Hernandez Jr, MD [Primary Care Provider] -
[2016-10-10] MEDS ORDERED: Acetaminophen 325 MG TABLET PO ONE (03:05)
[2016-10-10] MEDS: Ipratropium/Albuterol Neb 3 ML IH SCH ×4 (04:40→22:45)
[2016-10-10] MEDS: *HR* Heparin 5,000 UNIT/ML VIAL SQ SCH ×2 (05:04→17:55)
[2016-10-10 08:14] LABS: Basophils % 0.4 %; Eosinophils % 0.4 %; Hematocrit 33.9 % (35.3-44.9); Hemoglobin 10.5 g/dL (11.5-15.4); Immature Granulocytes % 0.9 % (0-4); Lymphocytes % 12.3 %; Mean Corpuscular Hemoglobin 29.2 pg (28.0-33.3); Mean Corpuscular Volume 94.4 fL (83.0-100.0); Monocytes # 0.7 K/mcL (0.0-1.3); Monocytes % 9.2 %; Neutrophils # 6.1 K/mcL (1.6-8.9); Platelet Count 147 K/mcL (140-400); Red Blood Count 3.59 M/mcL (3.82-4.97); Red Cell Distribution Width 15.2 % (11.5-14.5); Segmented Neutrophils % 76.8 %
--- NOTE | 2016-10-10 08:24 | Cardiology Progress Note ---
Date of Encounter: 10/10/16 Time of Encounter: 08:30 Assessment and Plan (1) Acute on chronic respiratory failure Current Visit: No Status: Acute Per Cardiology: Recent DC for acute on chronic resp failure in setting of pneumonia. Now improved. On nebs. Management per primary service. Not currently on antibiotics. Afebrile. WBC initially 13. Chest X-Ray 10/08/16 12:58 IMPRESSION: Bibasilar opacities have slightly increased from prior chest radiograph on 09/24/2016 and are suspicious for pneumonia with associated pleural effusions. CXR as above. Further management per primary service. SOB has improved. Qualifiers: Respiratory failure complication: hypoxia Qualified Code(s): J96.21 - Acute and chronic respiratory failure with hypoxia (2) Atrial fibrillation with RVR Current Visit: Yes Status: Acute Per Cardiology: No known history of atrial fibrillation until recent hospital stay at which time she was diagnosed with A. fib. Average heart rate on telemetry last 12 hours 84. Current and recent ECGs and telemetry strips from 08/2016 reviewed and discussed with Dr. Lobo West-- appears to mainly show SR with SR with PACs and mutifocal atrial rhythm with undetermined possible afib. TSH okay, troponin negative 1. On Cardizem CD 180 mg by mouth daily and Lopressor 100 mg by mouth twice a day. SBP in the 120's. Regarding long-term AC, on asa only, apparently developed rectal bleeding with Hep. and 1 dose of Eliquis last stay. Reports no falls. Patient and daughter are agreeable to aspirin only and aware of potential increased stroke risk. Discussed review Dr. Lobo West, cardiology will sign off, re-consult as needed , follow-up scheduled as outpatient. (3) Hypokalemia Current Visit: Yes Status: Acute Per Cardiology: K+ = 3.3, replaced and now 3.5. Ventricular arrhythmias noted on telemetry. On lasix 40mg PO BID. (4) Hypomagnesemia Current Visit: Yes Status: Acute Per Cardiology: Mg+ = 1.4, replaced. Suspect in relation to diuresis. Discussion w patient/family: The assessment and plan as outlined above was discussed with the patient and/or family members who expressed understanding and agreement. All questions were answered. Thank you for involving us in the care of your patient. Please call with any questions. Subjective Principal diagnosis: SOB Interval history: Patient seen today with daughter at bedside. She reports her shortness of breath continues to be improved overall. She denies any chest pain or palpitations. Denies any active bleeding or blood loss. Objective Vital Signs, Last 4 Hours Temp Pulse Resp BP Pulse Ox 10/10/16 07:26 97.5 F L 83 16 127/59 92 L 10/10/16 05:16 98.7 F 78 18 122/48 92 L 10/10/16 04:40 24 90 L General: Conversant, No Apparent Distress HEENT: Atraumatic, Normocephaly Cardiac: Reg Rate and Rhythm, Normal S1 and S2, No Murmur Lungs: Other (Diminished to bases) Neuro: Alert and responsive, No focal deficits noted Abdomen: Soft, Non-Tender, Other (obese) Skin: No rashes noted on visualized skin Results 10/10/16 08:07 10/10/16 08:07 Lab Results Laboratory Tests 10/10/16 08:07 Potassium 3.5 Intake & Output 10/07/16 10/08/16 10/09/16 10/10/16 22:59 23:59 23:59 23:59 Intake Total 824 / 824 0 / 0 Output Total 350 / 350 Balance 824 / 824 -350 / -350 Weight 124.8 kg Active Medications Albuterol/Ipratropium (Duoneb) 3 ml IH [id number] SABRINA PRN Reason: Protocol Stop: 04/10/17 16:01 Last Admin: 10/10/16 04:40 Dose: 3 ml Alprazolam (Xanax) 0.5 mg PO BID SABRINA PRN Reason: Protocol Stop: 04/09/17 21:01 Last Admin: 10/09/16 21:51 Dose: 0.5 mg Amitriptyline HCl (Elavil) 10 mg PO HS SABRINA Stop: 04/09/17 21:01 Last Admin: 10/09/16 21:51 Dose: 10 mg Aspirin (Aspirin) 81 mg PO DAILY SABRINA Stop: 04/10/17 09:01 Last Admin: 10/09/16 08:39 Dose: 81 mg Budesonide/Formoterol Fumarate (Symbicort) 2 puff IH BIDR SABRINA PRN Reason: Protocol Stop: 04/09/17 22:01 Last Admin: 10/09/16 21:22 Dose: 2 puff Dextrose/Water (Dextrose 50% (Syg)) 25 ml IVP AD PRN PRN Reason: Hypoglycemia Stop: 04/09/17 16:51 Diltiazem HCl (Cardizem Cd) 180 mg PO DAILY SABRINA Stop: 04/10/17 09:01 Last Admin: 10/09/16 10:50 Dose: 180 mg Furosemide (Lasix) 40 mg PO BIDDIURETIC SABRINA Stop: 04/09/17 17:01 Last Admin: 10/09/16 17:06 Dose: 40 mg Glucagon (Glucagen) 1 mg IM ONCE PRN PRN Reason: Hypoglycemia Stop: 04/09/17 16:51 Glucose (Gluctose) 15 gm PO ONCE PRN PRN Reason: Hypoglycemia Stop: 04/09/17 16:51 Glucose (Gluctose) 30 gm PO ONCE PRN PRN Reason: Hypoglycemia Stop: 04/09/17 16:51 Heparin Sodium (Porcine) (Heparin) 5,000 unit SQ Q12HCO [facility] Stop: 04/09/17 18:01 Last Admin: 10/10/16 05:04 Dose: 5,000 unit Dextrose (Dextrose 5%) 1,000 mls @ 100 mls/hr IV CONT PRN PRN Reason: HYPOGLYCEMIA Stop: 04/09/17 16:51 Insulin Human Lispro (Humalog) 4 units 0.05 units/kg (4 units) SQ TIDWM [facility] Stop: 04/09/17 17:01 Last Admin: 10/09/16 17:06 Dose: 4 units Insulin Human Lispro (Humalog) 0 units SQ TIDAC SABRINA PRN Reason: Protocol Stop: 04/10/17 07:31 Last Admin: 10/09/16 17:06 Dose: 4 units Insulin Human Lispro (Humalog) 0 units SQ HS SABRINA PRN Reason: Protocol Stop: 04/09/17 21:01 Last Admin: 10/09/16 21:51 Dose: Not Given Lactulose (Lactulose) 20 gm PO BID [facility] Stop: 04/09/17 21:01 Last Admin: 10/09/16 21:51 Dose: 20 gm Lovastatin (Mevacor) 10 mg PO DAILY SABRINA Stop: 04/10/17 09:01 Last Admin: 10/09/16 08:39 Dose: 10 mg Metoprolol Tartrate (Lopressor) 100 mg PO BID [facility] Stop: 04/09/17 21:01 Last Admin: 10/09/16 21:51 Dose: 100 mg Naloxone HCl (Narcan) 0.4 mg IVP Q2MIN PRN PRN Reason: Opioid Reversal Stop: 04/09/17 16:44 Potassium Chloride (Potassium Chloride) 20 meq PO DAILY [facility] Stop: 04/11/17 09:01 Senna/Docusate Sodium (Senna Plus) 1 each PO BID SABRINA PRN Reason: Protocol Stop: 04/09/17 16:52 Last Admin: 10/09/16 21:51 Dose: 1 each Tiotropium [place] (Spiriva) 18 mcg IH DAILY SABRINA PRN Reason: Protocol Stop: 04/10/17 09:01 Last Admin: 10/09/16 10:42 Dose: Not Given - EKG Interpretation EKG results cardiology: other (Telemetry reviewed with average heart rate is 12 hours 84, SR/multifocal atrial rhythm vs afib, majority appears SR) Consult Discharge Plan - Plan Referrals: Eduardo Hernandez Jr, MD [Primary Care Provider] -
[2016-10-10 08:27] LABS: BUN/Creatinine Ratio 20 (6-26); Blood Urea Nitrogen 22 mg/dL (7-20); Calcium 8.4 mg/dL (8.6-10.8); Carbon Dioxide 31 mEq/L (19-29); Chloride 99 mEq/L (98-109); Glucose 121 mg/dL (70-99); Osmolality,Calculated 297 (280-300); Potassium 3.5 mEq/L (3.5-4.5); Sodium 141 mEq/L (136-145); eGFR For African Americans > 60 (> 60); eGFR For Non-African Americans 50 (> 60)
[2016-10-10] MEDS: Insulin LISPRO 300 UNITS/3 ML VIAL SQ SCH ×7 (10:36→21:11)
[2016-10-10] MEDS: Diltiazem CD (24hr) 180 MG CAPSULE PO SCH (10:46)
[2016-10-10] MEDS: Metoprolol 100 MG TABLET PO SCH ×2 (10:46→21:06)
[2016-10-10] MEDS: Aspirin 81 MG TAB.CHEW PO SCH (10:46)
[2016-10-10] MEDS: ALPRAZolam 0.25 MG TABLET PO SCH ×2 (10:47→21:06)
[2016-10-10] MEDS: Furosemide 40 MG TABLET PO SCH ×2 (10:47→18:11)
[2016-10-10] MEDS: Sennosides/Docusate Sodium TABLET PO SCH ×2 (10:47→21:06)
[2016-10-10] MEDS: Lactulose Oral Soln 20 GM/30 ML UDC PO SCH ×2 (10:58→21:06)
[2016-10-10] MEDS: Tiotropium 18 MCG inhalation IH SCH (11:29)
[2016-10-10] MEDS: Budesonide/Formoterol 160/4.5 MDI IH SCH ×2 (11:29→22:45)
--- NOTE | 2016-10-10 17:01 | Internal Med Progress Note ---
Date of Encounter: 10/10/16 Time of Encounter: 17:00 - Assessment and plan (1) Acute on chronic respiratory failure Current Visit: No Status: Acute Qualifiers: Respiratory failure complication: hypoxia Qualified Code(s): J96.21 - Acute and chronic respiratory failure with hypoxia (2) Diastolic heart failure Current Visit: Yes Status: Acute Qualifiers: Heart failure chronicity: chronic Qualified Code(s): I50.32 - Chronic diastolic (congestive) heart failure (3) Atrial fibrillation with RVR Current Visit: No Status: Acute (4) Hypertension Current Visit: No Status: Chronic Qualifiers: Hypertension type: essential hypertension Qualified Code(s): I10 - Essential (primary) hypertension (5) Morbid obesity with BMI of 45.0-49.9, adult Current Visit: No Status: Chronic (6) Obesity hypoventilation syndrome Current Visit: No Status: Chronic - Subjective Interval history: ángela seen at the bedside, reports that she feels better, no sob, not in any acute respiratory distress. denies chest pain , cough or palpitation. currently on 10 l and sating 93%, has been on BIPAP overnight. - Constitutional Vitals: Temp Pulse Resp BP Pulse Ox 98.3 F 82 18 135/57 93 L 10/10/16 15:00 10/10/16 15:00 10/10/16 16:50 10/10/16 15:00 10/10/16 16:50 General appearance: Present: A&O X 3 Exam: neck- supple chest- b/l decreased breath sounds, no wheezing or crptns cvs-s1 and s2, no mr//g abd-soft , non tender, bs are present, bs are present ext- no edema Internal Medicine: Result - Labs CBC & Chem 7: 10/10/16 08:07 10/10/16 08:07 Labs: Short CBC 10/10/16 Range/Units 08:07 WBC 7.9 (4.3-11.1) K/mcL Hgb 10.5 L (11.5-15.4) g/dL Hct 33.9 L (35.3-44.9) % Plt Count 147 (140-400) K/mcL Neutrophils # 6.1 (1.6-8.9) K/mcL BMP 10/10/16 08:07 Sodium 141 Potassium 3.5 Chloride 99 Carbon Dioxide 31 H BUN 22 H Creatinine 1.08 Glucose 121 H Calcium 8.4 L - ABG Interpretation ABG results: PT/INR, D-dimer PT 12.3 Seconds (9.4-12.1) H 10/08/16 13:34 - VTE Documentation of Mechanical Device: Intermittent pneumatic compression device Consult Discharge Plan - Plan Referrals: Eduardo Woodruff CNP [Advanced Practice Nurse] - 11/06/16 1:30 pm Eduardo Hernandez Jr, MD [Primary Care Provider] -
[2016-10-11] MEDS: Ipratropium/Albuterol Neb 3 ML IH SCH ×2 (02:14→11:03)
[2016-10-11] MEDS: *HR* Heparin 5,000 UNIT/ML VIAL SQ SCH ×2 (06:38→18:08)
[2016-10-11 08:10] LABS: Hematocrit 30.2 % (35.3-44.9); Hemoglobin 9.5 g/dL (11.5-15.4); Immature Platelets 3.7 % (1.1-6.1); Mean Corpuscular HGB Conc 31.5 g/dL (31.6-35.5); Mean Corpuscular Hemoglobin 29.7 pg (28.0-33.3); Mean Corpuscular Volume 94.4 fL (83.0-100.0); Mean Platelet Volume 9.8 fL (9.4-12.4); Platelet Count 168 K/mcL (140-400); Red Cell Distribution Width 15.3 % (11.5-14.5); Segmented Neutrophils % 72.4 %
[2016-10-11 08:11] LABS: Basophils % 0.3 %; Eosinophils % 0.5 %; Lymphocytes # 0.9 K/mcL (0.6-4.6); Lymphocytes % 15.5 %; Monocytes # 0.6 K/mcL (0.0-1.3); Monocytes % 10.3 %; Neutrophils # 4.3 K/mcL (1.6-8.9)
[2016-10-11 08:38] LABS: BUN/Creatinine Ratio 18 (6-26); Blood Urea Nitrogen 18 mg/dL (7-20); Carbon Dioxide 28 mEq/L (19-29); Chloride 100 mEq/L (98-109); Glucose 111 mg/dL (70-99); Osmolality,Calculated 293 (280-300); Potassium 3.5 mEq/L (3.5-4.5); Sodium 140 mEq/L (136-145); eGFR For African Americans > 60 (> 60); eGFR For Non-African Americans 54 (> 60)
[2016-10-11] MEDS: Lactulose Oral Soln 20 GM/30 ML UDC PO SCH ×2 (09:53→21:05)
[2016-10-11] MEDS: Diltiazem CD (24hr) 180 MG CAPSULE PO SCH (09:54)
[2016-10-11] MEDS: Sennosides/Docusate Sodium TABLET PO SCH ×2 (09:54→21:06)
[2016-10-11] MEDS: Aspirin 81 MG TAB.CHEW PO SCH (09:54)
[2016-10-11] MEDS: Furosemide 40 MG TABLET PO SCH (09:54)
[2016-10-11] MEDS: Metoprolol 100 MG TABLET PO SCH ×2 (09:54→21:05)
[2016-10-11] MEDS: Insulin LISPRO 300 UNITS/3 ML VIAL SQ SCH ×7 (09:54→21:12)
[2016-10-11] MEDS: Budesonide/Formoterol 160/4.5 MDI IH SCH ×2 (11:03→20:23)
[2016-10-11 11:08] LABS: ABG Base Excess 13.8 mEq/L (-2.0 to 3.0); ABG HCO3 39.3 mEQ/L (21-27); ABG Oxygen Saturation 94 % (95-98); ABG PCO2 54 mmHg (35-45); ABG PH 7.47 pH Units (7.32-7.45); ABG PO2 68 mmHg (85-104); Blood Gas FiO2 60 %
--- NOTE | 2016-10-11 12:11 | Internal Med Progress Note ---
Date of Encounter: 10/11/16 Time of Encounter: 12:09 - Assessment and plan (1) Acute on chronic respiratory failure Current Visit: No Status: Acute Assessment and plan: Acute on chronic respiratory failure with hypoxia and hypercapnia in this individual is due to underlying advanced chronic obstructive pulmonary disease, obesity hypoventilation syndrome , obstructive sleep apnea (likely advanced, former cigarette smoker) and chronic heart dysfunction (diastolic heart dysfunction, pulmonary hypertension, cor pulmonale). she was recently discharged from the hospital and has completed antibiotics for pneumonia. as per the daughter, her baseline oxygen requirement is 5-6 L to maintain sats from 90-92%. Chest x-ray shows bilateral opacities, slightly increased from before, however she does not have any cough or fever or worsening respiratory symptoms and reports that she is actually feeling bettr have held off on antibiotics, however has persistent hypoxia that seems to be getting worse and is currently on BIPAP. unclear if she has chronic thromboembolic disease which was brought up on her last admission, CTA could not be done given MARISSA, was started on elliquis emperically which had to be dc eventually due to rectal bleed. abg today shows po2 of 68 at 60% fio2. will consult pulmonary for any further recommendations. continue incentive spirometry. Qualifiers: Respiratory failure complication: hypoxia Qualified Code(s): J96.21 - Acute and chronic respiratory failure with hypoxia (2) Diastolic heart failure Current Visit: Yes Status: Acute Assessment and plan: has b/l lower leg edema which is chronic, also has some pleural effusion. will change the lasix to IV and will do 40mg IV bid. cardiology has signed off. Qualifiers: Heart failure chronicity: chronic Qualified Code(s): I50.32 - Chronic diastolic (congestive) heart failure (3) Atrial fibrillation with RVR Current Visit: No Status: Acute Assessment and plan: at dc she was on cardizem 30 q8hr, which has been increased now to 30 q6h when she presented with RVR has been evaluated by cardio and they think its 2/2 her pulmonary condition and possibly the hypoxia contributing. not on AC due to rectal bleed. HR controlled and is at 80s, BP stable appreciate cardio recommendtaions (4) Hypertension Current Visit: No Status: Chronic Assessment and plan: stable. Qualifiers: Hypertension type: essential hypertension Qualified Code(s): I10 - Essential (primary) hypertension (5) Morbid obesity with BMI of 45.0-49.9, adult Current Visit: No Status: Chronic (6) Obesity hypoventilation syndrome Current Visit: No Status: Chronic Assessment and plan: continue CPAP at night. - Time Spent With Patient 25 - 35 minutes - Subjective Interval history: ángela seen at the bedside, reports that she feels good, does de sat easily if she tries to move a little, yest she went to the bathroom and ever since she has not been able to be weaned off BIPAP. she has some pain on her right foot which is swollen chronically, no acute pathology on the x- rays. denies chest pain , cough or palpitation. currently BIPAP at 60% and sating 93%. noted low grade temp overnight of 100.3 - Constitutional Vitals: Temp Pulse Resp BP Pulse Ox 100 F H 83 16 139/67 92 L 10/11/16 11:03 10/11/16 11:03 10/11/16 11:03 10/11/16 11:03 10/11/16 11:03 General appearance: Present: A&O X 3, no acute distress Exam: neck- supple chest- b/l decreased breath sounds, no wheezing or creptns CVS-s1 and s2, no m/r/g abd-soft, non tender, bs are present ext- b/l lower leg edema, chronic, non tender, neuro- no focal defecits, alert and awake. Internal Medicine: Result - Labs CBC & Chem 7: 10/11/16 08:02 10/11/16 08:02 Labs: Short CBC 10/11/16 Range/Units 08:02 WBC 5.9 (4.3-11.1) K/mcL Hgb 9.5 L (11.5-15.4) g/dL Hct 30.2 L (35.3-44.9) % Plt Count 168 (140-400) K/mcL Neutrophils # 4.3 (1.6-8.9) K/mcL BMP 10/11/16 08:02 Sodium 140 Potassium 3.5 Chloride 100 Carbon Dioxide 28 BUN 18 Creatinine 1.02 Glucose 111 H Calcium 8.0 L - ABG Interpretation ABG results: ABG ABG pH 7.47 pH Units (7.32-7.45) H 10/11/16 10:54 ABG pCO2 54 mmHg (35-45) H 10/11/16 10:54 ABG pO2 68 mmHg (85-104) L 10/11/16 10:54 ABG O2 Saturation 94 % (95-98) L 10/11/16 10:54 PT/INR, D-dimer PT 12.3 Seconds (9.4-12.1) H 10/08/16 13:34 - Impressions Impressions Ankle X-Ray 10/10/16 16:47 IMPRESSION: No acute process D/ / Micky Torres MD / Micky Torres MD Interpreting Provider: Micky Torres MD Foot X-Ray 10/10/16 16:47 IMPRESSION: No acute process D/ / Micky Torres MD / Micky Torres MD Interpreting Provider: Micky Torres MD - VTE Documentation of Mechanical Device: Intermittent pneumatic compression device Consult Discharge Plan - Plan Referrals: Eduardo Woodruff CNP [Advanced Practice Nurse] - 11/06/16 1:30 pm Eduardo Hernandez Jr, MD [Primary Care Provider] -
[2016-10-11] MEDS: ALPRAZolam 0.25 MG TABLET PO SCH ×2 (13:03→21:05)
--- NOTE | 2016-10-11 14:15 | Pulmonology Consult Note ---
Date of Encounter: 10/11/16 Time of Encounter: 14:08 Assessment and Plan (1) Acute and chronic respiratory failure with hypoxia Current Visit: Yes Status: Acute Acute on chronic respiratory failure with hypoxia and hypercapnia is multifactorial in etiology and due to COPD, obesity hypoventilation syndrome, obstructive sleep apnea, diastolic heart failure, and pulmonary hypertension with cor pulmonale. There was previous concern for venous thromboembolism in the past, but the patient had negative lower extremity venous duplex and was intolerant of empiric anticoagulation with GI bleeding. I agree with the care up to this point. Continue supplemental oxygen via high flow nasal cannula and wean to tolerance. Goal oxygen saturations of 88% or greater. Ultimately, we may be unable to achieve this goal on low flow oxygen ( 6 L or less) and may need to tolerate lower oxygen saturation and consider transition to hospice. Very little in the way of further therapeutic options available. I agree with diuresis to tolerance (chest imaging is suggestive of bilateral pleural effusions). I agree with nightly BiPAP therapy for empiric treatment of obesity hypoventilation syndrome. I agree with heart rate and blood pressure control in order to better treat her underlying diastolic congestive heart failure. I agree with her bronchodilator regimen for treatment of COPD. I see no indication for antibiotics. She is not a candidate for vasodilator therapy for treatment of her "secondary" pulmonary hypertension. Otherwise, recommend out of bed activities and incentive spirometry to tolerance in order to combat atelectasis - which is also likely contributing to her hypoxia. (2) Atrial tachycardia Current Visit: Yes Status: Acute Per cardiology thought to be multifocal atrial tachycardia and possibly atrial fibrillation. She is reportedly not an anticoagulation candidate due to risk for GI bleeding. Rate control regimen with diltiazem and metoprolol per primary team and cardiology. (3) COPD (chronic obstructive pulmonary disease) Current Visit: Yes Status: Acute Agree with Spiriva and Symbicort. She does not appear to be in acute exacerbation and withholding steroids and antibiotics. May be reasonable to make her DuoNeb treatment when necessary in order to decrease beta 2 agonists and tachycardia. Qualifiers: COPD type: unspecified COPD Qualified Code(s): J44.9 - Chronic obstructive pulmonary disease, unspecified (4) Obesity hypoventilation syndrome Current Visit: No Status: Chronic Agree with nightly BiPAP therapy. History of Present Illness Consult date: 10/11/16 Requesting physician: Alan Liang Reason for consult: hypoxemia Chief complaint: Leg numbness History of present illness: 70-year-old white female with a medical history significant for COPD, obesity hypoventilation syndrome, obstructive sleep apnea, diastolic heart failure, and cor pulmonale who presented to the hospital for evaluation of arrhythmia. She is found to be significantly hypoxic, and pulmonary was consult for further evaluation. Obtaining history from the patient was difficult as the patient is fairly hard of hearing and tangential. Her chief complaint was ankle numbness due to sequential compression devices. Luckily, there was a family member at the bedside to assist with obtaining history. The patient had been at home utilizing supplemental oxygen. The family had noticed that her heart rate was varying widely from the 30s to the 130s. She was brought in to the hospital for evaluation. Per cardiology note, there is concern for multifocal atrial tachycardia related to her chronic pulmonary issues. She was also noted to be significantly hypoxic since hospitalized and is on high flow oxygen via nasal cannula. Patient reports that her breathing is essentially at baseline. She is quite immobile at baseline due to her body habitus and severe dyspnea with minimal exertion. No fevers or chills. No new cough or sputum production. No exertional chest discomfort, nausea/vomiting, or diaphoresis. Past Med Surg Social Fam HX - Past Medical History Medical history: CHF, COPD, DVT, diabetes, hyperlipidemia, hypertension Psychiatric history: anxiety, depression - Past Surgical History Surgical History: appendectomy, - Social History Smoking Status: Former smoker Smokeless Tobacco Status: No Alcohol use: none Drug use: none - Family History Mother Family Member Ethnicity: Non- Living Status: Hx Family Cardiac Disorders: Yes Hx Family Respiratory Disorders: Yes Hx Family Cancer: Yes Hx Family GI Disorders: No Hx Family Endocrine Disorder: No Hx Family Neuromuscular Disorders: No Hx Family Neurologic Disorders: No Hx Family HEENT Disorders: No Hx Family Autoimmune Disorders: No Father Living Status: Hx Family Cancer: Yes Medications and Allergies Albuterol Sulfate [Albuterol Inhaler] 2 puff IH Q4H PRN 08/23/16 [History] Amitriptyline [Elavil] 10 mg PO HS 08/23/16 [History] Ascorbate Calcium [Vitamin C] 500 mg PO DAILY 08/23/16 [History] Aspirin 81 mg PO DAILY 08/23/16 [History] Calcium Carbonate/Vitamin D3 [Calcium 600 with Vit D Chew Tb] 1 each PO DAILY [History] Ergocalciferol (VITAMIN D2) [Vitamin D] 400 unit PO DAILY 08/23/16 [History] Fish Oil/Dha/Epa [Fish Oil 1,200 mg Fish Oil] 1 cap PO DAILY 08/23/16 [History] Fluticasone Propionate Nasal [Flonase] 50 mcg NS DAILY PRN 08/23/16 [History] Hydroxyzine HCl 25 mg PO HS PRN 08/23/16 [History] Metoprolol [Lopressor] 100 mg PO BID 08/23/16 [History] Tiotropium [place] [Spiriva] 18 mcg IH DAILY 08/23/16 [History] Vitamin B Complex 1 cap PO DAILY 08/23/16 [History] Budesonide/Formoterol 160/4.5 [Symbicort 160/4.5] 2 puff IH BIDR #1 inhaler [Rx] Ipratropium/Albuterol Neb [Duoneb] 3 ml IH QIDR PRN #100 aerosol 08/27/16 [Rx] Metformin [Glucophage] 500 mg PO BID #60 tablet 08/27/16 [Rx] Nystatin POWDER [Nystop] 1 appl TP BID #1 bottle 08/27/16 [Rx] Amlodipine [Norvasc] 5 mg PO DAILY 09/21/16 [History] Oxygen 2 l NS CONT 09/21/16 [History] Alprazolam [Xanax 0.25 MG Tablet] 0.5 mg PO BID #30 tablet 10/01/16 [Rx] Budesonide Neb [Pulmicort Neb] 0.5 mg IH BIDR inhsol 10/01/16 [Rx] Diltiazem [Cardizem] 30 mg PO Q8HR tablet 10/01/16 [Rx] GuaiFENesin/Dextromethorphan [Robitussin/Dm] 10 ml PO BID PRN #0 udc 10/01/16 [ Rx] Acetaminophen [Tylenol] 650 mg PO Q6HR 10/08/16 [History] Furosemide [Lasix] 40 mg PO BID 10/08/16 [History] Insulin LISPRO [HumaLOG] 2 - 12 units SQ TIDWM 10/08/16 [History] Lactulose [Enulose] 20 gm PO BID 10/08/16 [History] Lovastatin 10 mg PO DAILY 10/08/16 [History] Sennosides/Docusate Sodium [Senna Plus] 1 tab PO BID 10/08/16 [History] Allergies No Known Allergies Allergy (Verified 08/23/16 19:46) All Systems: A 10-system review of systems was performed and is negative for pertinent findings except as documented above in the HPI. Physical Examination Vital Signs: Vital Signs, Last 4 Hours Temp Pulse Resp BP Pulse Ox 10/11/16 11:03 100 F H 83 16 139/67 92 L General: Obese white female who is in no acute distress Eyes: nonicteric ENT: oropharynx dry Neck: supple, no lymphadenopathy Lungs: Clear to auscultation anteriorly Cardiovascular: Distant heart sounds, irregular Gastrointestinal: normoactive bowel sounds, soft, non-tender, non-distended, large pannus Integumentary: normal Extremities: no cyanosis, pitting bilateral LE edema noted Musculoskeletal: no deformities Neuro: normal mental status, non-focal exam Psych: mood appropriate, odd affect Results - Laboratory Findings CBC and BMP: 10/11/16 08:02 10/11/16 08:02 ABG ABG pH 7.47 pH Units (7.32-7.45) H 10/11/16 10:54 ABG pCO2 54 mmHg (35-45) H 10/11/16 10:54 ABG pO2 68 mmHg (85-104) L 10/11/16 10:54 ABG O2 Saturation 94 % (95-98) L 10/11/16 10:54 PT/INR, D-dimer PT 12.3 Seconds (9.4-12.1) H 10/08/16 13:34 Abnormal lab findings: Abnormal lab results RBC 3.20 M/mcL (3.82-4.97) L 10/11/16 08:02 Hgb 9.5 g/dL (11.5-15.4) L 10/11/16 08:02 Hct 30.2 % (35.3-44.9) L 10/11/16 08:02 MCHC 31.5 g/dL (31.6-35.5) L 10/11/16 08:02 RDW 15.3 % (11.5-14.5) H 10/11/16 08:02 PT 12.3 Seconds (9.4-12.1) H 10/08/16 13:34 APTT 25.5 Seconds (26.0-36.0) L 10/08/16 13:34 ABG pH 7.47 pH Units (7.32-7.45) H 10/11/16 10:54 ABG pCO2 54 mmHg (35-45) H 10/11/16 10:54 ABG pO2 68 mmHg (85-104) L 10/11/16 10:54 ABG HCO3 39.3 mEQ/L (21-27) H 10/11/16 10:54 ABG Total CO2 41.0 mEq/L (20-26) H 10/11/16 10:54 ABG O2 Saturation 94 % (95-98) L 10/11/16 10:54 ABG Base Excess 13.8 mEq/L (-2.0 to 3.0) H 10/11/16 10:54 Est GFR (Non-Af Amer) 54 (> 60) L 10/11/16 08:02 Glucose 111 mg/dL (70-99) H 10/11/16 08:02 POC Glucose 180 (58-89) H 10/11/16 11:07 Calcium 8.0 mg/dL (8.6-10.8) L 10/11/16 08:02 B-Natriuretic Peptide 111 pg/mL (0-100) H 10/09/16 05:30 - Clinical Findings Intake & Output: Intake & Output 10/10/16 10/11/16 10/11/16 23:59 07:59 15:59 Intake Total 360 / 360 0 / 0 600 / 600 Output Total 925 / 925 Balance 360 / 360 -925 / -925 600 / 600 Weight 124.9 kg Consult Discharge Plan - Plan Referrals: Eduardo Woodruff CNP [Advanced Practice Nurse] - 11/06/16 1:30 pm Eduardo Hernandez Jr, MD [Primary Care Provider] -
[2016-10-11] MEDS: Tiotropium 18 MCG inhalation IH SCH (16:33)
[2016-10-11] MEDS: Furosemide 40 MG/4 ML VIAL IVP SCH (17:44)
[2016-10-11] MEDS: Ipratropium/Albuterol Neb 3 ML IH PRN (20:24)
[2016-10-11] MEDS: Acetaminophen 325 MG TABLET PO PRN (21:24)
[2016-10-11 21:33] LABS: Bilirubin,Urine Negative (Negative); Blood,Urine Negative (Negative); Clarity,Urine Clear (Clear); Color,Urine Yellow (Yellow); Glucose,Urine (UA) Normal (Normal); Ketones,Urine Negative (Negative); Leukocyte Esterase,Urine Negative (Negative); Nitrite,Urine Negative (Negative); PH,Urine 7.5 pH Units (5.0-8.0); Protein,Urine Negative (Neg-Trace); Specific Gravity,Urine 1.009 (1.010-1.025); Urobilinogen,Urine Normal (Normal)
[2016-10-12] MEDS: *HR* Heparin 5,000 UNIT/ML VIAL SQ SCH ×2 (05:47→18:10)
[2016-10-12 06:10] LABS: Basophils % 0.3 %; Eosinophils % 0.5 %; Hematocrit 32.4 % (35.3-44.9); Hemoglobin 9.9 g/dL (11.5-15.4); Immature Granulocytes % 1.4 % (0-4); Lymphocytes # 0.9 K/mcL (0.6-4.6); Lymphocytes % 14.4 %; Mean Corpuscular HGB Conc 30.6 g/dL (31.6-35.5); Mean Platelet Volume 10.3 fL (9.4-12.4); Monocytes # 0.7 K/mcL (0.0-1.3); Monocytes % 11.3 %; Neutrophils # 4.6 K/mcL (1.6-8.9); Platelet Count 157 K/mcL (140-400); Red Blood Count 3.41 M/mcL (3.82-4.97); Red Cell Distribution Width 15.3 % (11.5-14.5); Segmented Neutrophils % 72.1 %
[2016-10-12 06:39] LABS: Calcium 8.2 mg/dL (8.6-10.8); Potassium 3.5 mEq/L (3.5-4.5)
[2016-10-12] MEDS: Budesonide/Formoterol 160/4.5 MDI IH SCH ×2 (07:56→19:55)
[2016-10-12] MEDS: Tiotropium 18 MCG inhalation IH SCH (07:56)
[2016-10-12] MEDS: Ipratropium/Albuterol Neb 3 ML IH PRN (07:56)
[2016-10-12] MEDS: Insulin LISPRO 300 UNITS/3 ML VIAL SQ SCH ×7 (08:52→21:08)
[2016-10-12] MEDS: Aspirin 81 MG TAB.CHEW PO SCH (08:53)
[2016-10-12] MEDS: ALPRAZolam 0.25 MG TABLET PO SCH ×2 (08:53→21:10)
[2016-10-12] MEDS: Furosemide 40 MG/4 ML VIAL IVP SCH ×2 (08:53→18:10)
[2016-10-12] MEDS: Metoprolol 100 MG TABLET PO SCH ×2 (08:55→21:07)
[2016-10-12] MEDS: Lactulose Oral Soln 20 GM/30 ML UDC PO SCH ×2 (08:55→21:07)
[2016-10-12] MEDS: Diltiazem CD (24hr) 180 MG CAPSULE PO SCH (08:55)
[2016-10-12] MEDS: Sennosides/Docusate Sodium TABLET PO SCH ×2 (08:55→21:07)
--- NOTE | 2016-10-12 12:01 | Internal Med Progress Note ---
Date of Encounter: 10/12/16 Time of Encounter: 11:59 - Assessment and plan (1) Acute on chronic respiratory failure Current Visit: No Status: Acute Assessment and plan: Acute on chronic respiratory failure with hypoxia and hypercapnia in this individual is due to underlying advanced chronic obstructive pulmonary disease, obesity hypoventilation syndrome , obstructive sleep apnea (likely advanced, former cigarette smoker) and chronic heart dysfunction (diastolic heart dysfunction, pulmonary hypertension, cor pulmonale). 10/12 she has been sating 93 on 12 l NC. will continue the high flow o2 with BIPAP prn to maintain sats at 88-92%. consulted pulmonary, no further additional intervention would improve the outcome at this time. will consult to discuss the code status and palliative options. as per the daughter at the bedside, they need to re-discuss the code status with the patient, will continue full code until then. at this point, patient may be eligible for hospice, continue the breathing treatments, incentive spirometry with the IV lasix 10/11 she was recently discharged from the hospital and has completed antibiotics for pneumonia. as per the daughter, her baseline oxygen requirement is 5-6 L to maintain sats from 90-92%. Chest x-ray shows bilateral opacities, slightly increased from before, however she does not have any cough or fever or worsening respiratory symptoms and reports that she is actually feeling bettr have held off on antibiotics, however has persistent hypoxia that seems to be getting worse and is currently on BIPAP. unclear if she has chronic thromboembolic disease which was brought up on her last admission, CTA could not be done given MARISSA, was started on elliquis emperically which had to be dc eventually due to rectal bleed. abg today shows po2 of 68 at 60% fio2. will consult pulmonary for any further recommendations. continue incentive spirometry. Qualifiers: Respiratory failure complication: hypoxia Qualified Code(s): J96.21 - Acute and chronic respiratory failure with hypoxia (2) Diastolic heart failure Current Visit: Yes Status: Acute Assessment and plan: has b/l lower leg edema which is chronic, also has some pleural effusion. will continue lasix 40mg IV bid. cardiology has signed off. Qualifiers: Heart failure chronicity: chronic Qualified Code(s): I50.32 - Chronic diastolic (congestive) heart failure (3) Atrial fibrillation with RVR Current Visit: No Status: Acute Assessment and plan: at dc she was on cardizem 30 q8hr, which has been increased now to 30 q6h when she presented with RVR has been evaluated by cardio and they think its 2/2 her pulmonary condition, possible may have been MAT and possibly the hypoxia contributing. not on AC due to rectal bleed. HR controlled and is at 80s, BP stable appreciate cardio recommendtaions (4) Hypertension Current Visit: No Status: Chronic Assessment and plan: stable. Qualifiers: Hypertension type: essential hypertension Qualified Code(s): I10 - Essential (primary) hypertension (5) Morbid obesity with BMI of 45.0-49.9, adult Current Visit: No Status: Chronic (6) Obesity hypoventilation syndrome Current Visit: No Status: Chronic Assessment and plan: continue CPAP at night. - Time Spent With Patient 25 - 35 minutes - Subjective Interval history: ángela seen at the bedside, noted that she is resting on 12 l and is sating 92 % . she had an episode of confusion yesterday, ua was checked, no UTI. thi smorning appears to be at baseline she was placed on BIPAP overnight. she has some pain on her right foot which is swollen chronically, no acute pathology on the x- rays, swelling looks better after starting the lasix. denies chest pain , cough or palpitation. - Constitutional Vitals: Temp Pulse Resp BP Pulse Ox 97.6 F 79 18 146/73 92 L 10/12/16 07:00 10/12/16 11:52 10/12/16 11:52 10/12/16 11:52 10/12/16 11:52 General appearance: Present: A&O X 3, no acute distress Exam: neck- supple chest- b/l decreased breath sounds, no wheezing or creptns CVS-s1 and s2, no m/r/g abd-soft, non tender, bs are present ext- b/l lower leg pedal edema, chronic, tender on movement, no redness. neuro- no focal defecits, alert and awake. Internal Medicine: Result - Labs CBC & Chem 7: 10/12/16 04:55 10/12/16 04:55 Labs: Short CBC 10/12/16 Range/Units 04:55 WBC 6.4 (4.3-11.1) K/mcL Hgb 9.9 L (11.5-15.4) g/dL Hct 32.4 L (35.3-44.9) % Plt Count 157 (140-400) K/mcL Neutrophils # 4.6 (1.6-8.9) K/mcL BMP 10/12/16 04:55 Sodium 139 Potassium 3.5 Chloride 98 Carbon Dioxide 33 H BUN 17 Creatinine 1.18 H Glucose 143 H Calcium 8.2 L Urine 10/11/16 Range/Units 07:35 Urine Color Yellow (Yellow) Urine Clarity Clear (Clear) Urine pH 7.5 (5.0-8.0) pH Units Ur Specific [place] 1.009 L (1.010-1.025) Urine Protein Negative (Neg-Trace) mg/dL Urine Glucose (UA) Normal (Normal) mg/dL - ABG Interpretation ABG results: ABG ABG pH 7.47 pH Units (7.32-7.45) H 10/11/16 10:54 ABG pCO2 54 mmHg (35-45) H 10/11/16 10:54 ABG pO2 68 mmHg (85-104) L 10/11/16 10:54 ABG O2 Saturation 94 % (95-98) L 10/11/16 10:54 PT/INR, D-dimer PT 12.3 Seconds (9.4-12.1) H 10/08/16 13:34 - VTE Documentation of Mechanical Device: Intermittent pneumatic compression device Consult Discharge Plan - Plan Referrals: Eduardo Woodruff CNP [Advanced Practice Nurse] - 11/06/16 1:30 pm Eduardo Hernandez Jr, MD [Primary Care Provider] -
--- NOTE | 2016-10-12 13:16 | Palliative - Consult Note ---
Date of Encounter: 10/12/16 Time of Encounter: 11:45 - Assessment and Plan (1) Goals of care, counseling/discussion Current Visit: Yes Status: Acute Assessment and plan: Discuss goals of care with the patient and her daughter-Meme. Discussed advanced lung disease, medical diagnoses, plan of care. Reviewed CODE STATUS options in detail including full code, DNR comfort care, DNR Comfort Care- Arrest. At this time, the patient has elected to remain a full code, but will continue discussions with her family members. We also reviewed ventilator support for acute situations, as well as long-term. Ms. Pollack is agreeable to intubation with mechanica ventilation if indicated. In regards of discharge planning, Ms. Pollack wishes to be transferred to her apartment at [facility]. Her family is prepared to stay with her for 24-hour care provided as needed. Ms. Pollack has home health aides through [employer] for 40 hours per week , as well as home health nurses, physical therapy/occupational therapy. Plans for home BiPAP to be set up per social worker. Ms. Pollack does not have any advanced directives in place at this time. Offered to complete advanced directives during inpatient hospital stay. In the event that she is unable to make decisions on her own, she has nominated her daughter Meme Hunter as her primary decision maker, and her daughter- Shelly Garza as her secondary contact. During the discussion, we did take the opportunity to discuss long-term care including hospice. We reviewed the hospice philosophy, benefits, and what hospice will and will not offer. Both Ms. Pollack and her daughter were given the opportunity to ask questions. They both had appropriate questions. The palliative care team will continue to follow while further goals of care are established. (2) Dyspnea Current Visit: Yes Status: Acute Assessment and plan: Supportive care, supplemental oxygen, BiPAP at night and when necessary, physician for comfort. Encourage activity as tolerated to prevent further atelectasis. Qualifiers: Dyspnea type: shortness of breath Qualified Code(s): R06.02 - Shortness of breath (3) Acute exacerbation of chronic obstructive airways disease Current Visit: Yes Status: Acute Assessment and plan: Management per hospitalist/pulmonary. (4) Acute on chronic respiratory failure Current Visit: Yes Status: Acute Assessment and plan: Management per hospitalist/pulmonary. Qualifiers: Respiratory failure complication: hypoxia Qualified Code(s): J96.21 - Acute and chronic respiratory failure with hypoxia (5) Hypoxia Current Visit: Yes Status: Acute (6) Anxiety Current Visit: No Status: Acute Assessment and plan: Alprazolam ordered twice daily as needed for management of anxiety. Recommend continuing current dose. Caution with TEACHING AIDE depressants. Palliative-CN HPI - Data of Consult Patient: new to practice Consult date: 10/12/16 Requesting Physician: Alan Liang Primary Care Provider: Eduardo Hernandez Jr, MD - Consult Narrative Palliative Care/Comfort Measures: Palliative care Reason for consult: Goals of care History of present illness: Ms. Plolack is a 70 year old female with advanced lung disease presenting to the emergency department with elevated heart rate and hypoxia. Ms. Pollack has had 3 hospital admissions in the past 3 months. Prior to admission, she was seeking rehabilitation at a local extended care facility. She had a recent admission from 09/22/2016 to 10/01/2016 for similar complaints. When she started to develop symptoms of tachycardia/palpitations and hypoxia, she was transferred to the emergency department and eventually admitted for further workup and evaluation. Cardiology was consulted, and initiated further treatment for multifocal atrial tachycardia. Starting from her most recent admission in August, Ms. Pollack has required increasing amounts of supplemental oxygen to maintain her oxygen saturations. Prior to 2016, her typical use of supplemental oxygen was only at night at a rate of 2 L/m. After hospitalization for pneumonia in July 2016, she was increased to 4 L/m and asked to wear the oxygen [id number]. Her most recent admission required yet another increase in her supplemental oxygen as high as 10 L/m with a high flow nasal cannula. She was discharged to the [facility] with oxygen requirements of 10 L/m. Despite the support, along with BiPAP therapy, she became hypoxic and required transfer back to [facility]. Pulmonology services have been following her as an outpatient prior to this admission. She is on optimal therapy for her chronic lung disease. Her goal is to maintain oxygen saturations greater than or equal to 88%. The palliative care team was consulted to assist in goals of care planning as the patient has advanced lung disease. CC: Alan Liang Past Med Surg Social Fam HX - Past Medical History Source: patient, old records reviewed, obtained from family Medical history: CHF, COPD, DVT, diabetes, hyperlipidemia, hypertension Psychiatric history: anxiety, depression - Past Surgical History Surgical History: appendectomy, - Social History Smoking Status: Former smoker Smokeless Tobacco Status: No Alcohol use: none Drug use: none - Family History Mother Family Member Ethnicity: Non- Living Status: Hx Family Cardiac Disorders: Yes Hx Family Respiratory Disorders: Yes Hx Family Cancer: Yes Hx Family GI Disorders: No Hx Family Endocrine Disorder: No Hx Family Neuromuscular Disorders: No Hx Family Neurologic Disorders: No Hx Family HEENT Disorders: No Hx Family Autoimmune Disorders: No Father Living Status: Hx Family Cancer: Yes Medications and Allergies Albuterol Sulfate [Albuterol Inhaler] 2 puff IH Q4H PRN 08/23/16 [History] Amitriptyline [Elavil] 10 mg PO HS 08/23/16 [History] Ascorbate Calcium [Vitamin C] 500 mg PO DAILY 08/23/16 [History] Aspirin 81 mg PO DAILY 08/23/16 [History] Calcium Carbonate/Vitamin D3 [Calcium 600 with Vit D Chew Tb] 1 each PO DAILY [History] Ergocalciferol (VITAMIN D2) [Vitamin D] 400 unit PO DAILY 08/23/16 [History] Fish Oil/Dha/Epa [Fish Oil 1,200 mg Fish Oil] 1 cap PO DAILY 08/23/16 [History] Fluticasone Propionate Nasal [Flonase] 50 mcg NS DAILY PRN 08/23/16 [History] Hydroxyzine HCl 25 mg PO HS PRN 08/23/16 [History] Metoprolol [Lopressor] 100 mg PO BID 08/23/16 [History] Tiotropium [place] [Spiriva] 18 mcg IH DAILY 08/23/16 [History] Vitamin B Complex 1 cap PO DAILY 08/23/16 [History] Budesonide/Formoterol 160/4.5 [Symbicort 160/4.5] 2 puff IH BIDR #1 inhaler [Rx] Ipratropium/Albuterol Neb [Duoneb] 3 ml IH QIDR PRN #100 aerosol 08/27/16 [Rx] Metformin [Glucophage] 500 mg PO BID #60 tablet 08/27/16 [Rx] Nystatin POWDER [Nystop] 1 appl TP BID #1 bottle 08/27/16 [Rx] Amlodipine [Norvasc] 5 mg PO DAILY 09/21/16 [History] Oxygen 2 l NS CONT 09/21/16 [History] Alprazolam [Xanax 0.25 MG Tablet] 0.5 mg PO BID #30 tablet 10/01/16 [Rx] Budesonide Neb [Pulmicort Neb] 0.5 mg IH BIDR inhsol 10/01/16 [Rx] Diltiazem [Cardizem] 30 mg PO Q8HR tablet 10/01/16 [Rx] GuaiFENesin/Dextromethorphan [Robitussin/Dm] 10 ml PO BID PRN #0 udc 10/01/16 [ Rx] Acetaminophen [Tylenol] 650 mg PO Q6HR 10/08/16 [History] Furosemide [Lasix] 40 mg PO BID 10/08/16 [History] Insulin LISPRO [HumaLOG] 2 - 12 units SQ TIDWM 10/08/16 [History] Lactulose [Enulose] 20 gm PO BID 10/08/16 [History] Lovastatin 10 mg PO DAILY 10/08/16 [History] Sennosides/Docusate Sodium [Senna Plus] 1 tab PO BID 10/08/16 [History] Allergies No Known Allergies Allergy (Verified 08/23/16 19:46) - Constitutional Constitutional ROS PAL: fatigue, no decreased appetite, no frequent falls, no weight loss - EENT Ears, nose, mouth, throat: mouth pain - Cardiovascular Cardiovascular ROS: dyspnea on exertion, edema, irregular heart rhythm, no palpitations - Respiratory Respiratory: cough, dyspnea on exertion - Gastrointestinal Gastrointestinal: no abdominal pain, no change in stool character, no constipation, no diarrhea, no nausea, no vomiting - Genitourinary Palliative ROS female: no difficulty voiding, no dysuria - Musculoskeletal Musculoskeletal ROS IM: muscle weakness - Integumentary ROS Integumentary: no sores, no wounds - Neurological Neurological ROS: numbness (bilateral lower extremities), weakness (global), no confusion, no focal weakness, no lack of coordination - Psychiatric Psychiatric general PM: no anxiety, no depression Palliative Care-Exam - Constitutional Vitals: Temp Pulse Resp BP Pulse Ox 97.6 F 79 18 146/73 92 L 10/12/16 07:00 10/12/16 11:52 10/12/16 11:52 10/12/16 11:52 10/12/16 11:52 General appearance: Present: morbidly obese Exam: 70 year old female, morbidly obese, appearing chronically ill. - Eye Eye exam: Present: EOMI - ENT ENT exam: Present: mucous membranes dry - Expanded ENT Exam Mouth Exam: Absent: normal external inspection (herpetic lesion noted to upper lip) - Respiratory Respiratory exam: Present: decreased breath sounds, prolonged expiratory phase. Absent: accessory muscle use, respiratory distress - Cardiovascular Cardiovascular exam: Present: RRR - GI/Abdominal Exam GI/Abdominal exam: Present: normal bowel sounds, soft. Absent: tenderness - Catheter Type: Urethral ([place]) - Expanded Upper Extremities Exam Forearm wrist exam: Present: ecchymosis - Expanded Lower Extremities Exam Lower Leg exam: Present: tenderness - Neurological Exam Neurological exam: Present: alert, oriented X3, no focal deficits, strengths equal and symetr throughout (global weakness) - Psychiatric Psychiatric exam: Absent: anxious, depressed - Skin Skin exam: Present: dry, warm Internal Medicine - CN: Reslt - Labs CBC & Chem 7: 10/12/16 04:55 10/12/16 04:55 Labs: Short CBC 10/12/16 Range/Units 04:55 WBC 6.4 (4.3-11.1) K/mcL Hgb 9.9 L (11.5-15.4) g/dL Hct 32.4 L (35.3-44.9) % Plt Count 157 (140-400) K/mcL Neutrophils # 4.6 (1.6-8.9) K/mcL BMP 10/12/16 04:55 Sodium 139 Potassium 3.5 Chloride 98 Carbon Dioxide 33 H BUN 17 Creatinine 1.18 H Glucose 143 H Calcium 8.2 L Urine 10/11/16 Range/Units 07:35 Urine Color Yellow (Yellow) Urine Clarity Clear (Clear) Urine pH 7.5 (5.0-8.0) pH Units Ur Specific [place] 1.009 L (1.010-1.025) Urine Protein Negative (Neg-Trace) mg/dL Urine Glucose (UA) Normal (Normal) mg/dL - ABG Interpretation ABG results: ABG ABG pH 7.47 pH Units (7.32-7.45) H 10/11/16 10:54 ABG pCO2 54 mmHg (35-45) H 10/11/16 10:54 ABG pO2 68 mmHg (85-104) L 10/11/16 10:54 ABG O2 Saturation 94 % (95-98) L 10/11/16 10:54 PT/INR, D-dimer PT 12.3 Seconds (9.4-12.1) H 10/08/16 13:34 Consult Discharge Plan - Plan Referrals: Eduardo Woodruff CNP [Advanced Practice Nurse] - 11/06/16 1:30 pm Eduardo Hernandez Jr, MD [Primary Care Provider] - Palliative Quality Palliative Quality: Screen for Code Status: Yes, Screen for Goals of Care: Yes, Screen for Pain: Yes, If Pain Regimen Started, Initiate Bowel Regimen: NA, Screen for Nausea/Vomitting: Yes
[2016-10-12] MEDS: Acetaminophen 325 MG TABLET PO PRN ×2 (13:32→18:34)
[2016-10-13] MEDS: Ipratropium/Albuterol Neb 3 ML IH PRN ×3 (04:24→23:04)
[2016-10-13] MEDS: *HR* Heparin 5,000 UNIT/ML VIAL SQ SCH ×2 (06:11→17:08)
[2016-10-13] MEDS: Acetaminophen 325 MG TABLET PO PRN (06:14)
[2016-10-13] MEDS: Budesonide/Formoterol 160/4.5 MDI IH SCH ×2 (07:54→23:04)
[2016-10-13] MEDS: Tiotropium 18 MCG inhalation IH SCH (07:58)
--- NOTE | 2016-10-13 10:11 | Palliative Progress Note ---
Date of Encounter: 10/13/16 Time of Encounter: 10:00 - Assessment and plan (1) Dyspnea Current Visit: Yes Status: Acute Assessment and plan: Still requiring high flow oxygen but has decreased to 7-9 L. Pulmonology consult reviewed. Continues present management with bronchodilators/steroids/ bipap use PRN. We discussed increasing activity as tolerated and she acknowledges importance of this. Qualifiers: Dyspnea type: shortness of breath Qualified Code(s): R06.02 - Shortness of breath (2) Constipation Current Visit: Yes Status: Acute Assessment and plan: Continue Lactulose and Senokot. Patient asked for warm prune juice with butter and I did obtain this for her. Stated this is usually effective for her at home. (3) Goals of care, counseling/discussion Current Visit: Yes Status: Acute Assessment and plan: Re-addressed after initial conversation yesterday. Patient continues to desire aggressive care and remain full code. Daughter at bedside expresses this desire for her mother as well. States they will continue discussions re: jail ventilation/trach. Patient states she still desires intubation, but if unable to wean off the vent, she is unsure if she would want a tracheostomy and manager intermediate vent support. Pt and daughter both state that they will continue to discuss. Palliative will f/u on Sunday. - Time Spent With Patient Total time spent is greater than 50% in coordination of care (as documented) at patient's floor/unit and/or counseling patient: - Subjective Interval history: Patient up on side of bed. Daughter at bedside. Alert and talkative. Oxygen currently at 9 L. States breathing is better, still very dyspneic with exertion. Pain in feet and legs she had yesterday is gone. c/o constipation. - Constitutional Vitals: Abnormal lab results RBC 3.41 M/mcL (3.82-4.97) L 10/12/16 04:55 Hgb 9.9 g/dL (11.5-15.4) L 10/12/16 04:55 Hct 32.4 % (35.3-44.9) L 10/12/16 04:55 MCHC 30.6 g/dL (31.6-35.5) L 10/12/16 04:55 RDW 15.3 % (11.5-14.5) H 10/12/16 04:55 PT 12.3 Seconds (9.4-12.1) H 10/08/16 13:34 APTT 25.5 Seconds (26.0-36.0) L 10/08/16 13:34 ABG pH 7.47 pH Units (7.32-7.45) H 10/11/16 10:54 ABG pCO2 54 mmHg (35-45) H 10/11/16 10:54 ABG pO2 68 mmHg (85-104) L 10/11/16 10:54 ABG HCO3 39.3 mEQ/L (21-27) H 10/11/16 10:54 ABG Total CO2 41.0 mEq/L (20-26) H 10/11/16 10:54 ABG O2 Saturation 94 % (95-98) L 10/11/16 10:54 ABG Base Excess 13.8 mEq/L (-2.0 to 3.0) H 10/11/16 10:54 Carbon Dioxide 33 mEq/L (19-29) H 10/12/16 04:55 Creatinine 1.18 mg/dL (0.57-1.11) H 10/12/16 04:55 Est GFR ( Amer) 55 (> 60) L 10/12/16 04:55 Est GFR (Non-Af Amer) 45 (> 60) L 10/12/16 04:55 Glucose 143 mg/dL (70-99) H 10/12/16 04:55 POC Glucose 211 (58-89) H 10/12/16 20:07 Calcium 8.2 mg/dL (8.6-10.8) L 10/12/16 04:55 B-Natriuretic Peptide 111 pg/mL (0-100) H 10/09/16 05:30 Ur Specific [place] 1.009 (1.010-1.025) L 10/11/16 07:35 General appearance: Present: no acute distress - Respiratory Additional comments: Breath sounds diminished bilaterally posterior chest. No rales/rhonchi appeciated. Remains on high flow O2 at 9LPM. - Cardiovascular Cardiovascular exam: Present: +S1, +S2 - GI/Abdominal GI/Abdominal exam: Present: normal bowel sounds, soft - Extremities Exam Extremities exam: Present: normal capillary refill, normal inspection - Neurological Exam Neurological exam: Present: alert, oriented X3, strengths equal and symetr throughout - Skin Skin exam: Present: dry, warm Palliative Quality Palliative Quality: Screen for Code Status: Yes, Screen for Goals of Care: Yes, Screen for Pain: Yes, If Pain Regimen Started, Initiate Bowel Regimen: NA, Screen for Nausea/Vomitting: Yes - Labs CBC & Chem 7: 10/12/16 04:55 10/12/16 04:55 Labs: Laboratory Results - last 24 hr 10/12/16 10/12/16 10/12/16 08:10 11:57 16:45 POC Glucose 134 H 161 H 169 H 10/12/16 20:07 POC Glucose 211 H - ABG Interpretation ABG results: ABG ABG pH 7.47 pH Units (7.32-7.45) H 10/11/16 10:54 ABG pCO2 54 mmHg (35-45) H 10/11/16 10:54 ABG pO2 68 mmHg (85-104) L 10/11/16 10:54 ABG O2 Saturation 94 % (95-98) L 10/11/16 10:54 PT/INR, D-dimer PT 12.3 Seconds (9.4-12.1) H 10/08/16 13:34 Consult Discharge Plan - Plan Referrals: Eduardo Woodruff CNP [Advanced Practice Nurse] - 11/06/16 1:30 pm Eduardo Hernandez Jr, MD [Primary Care Provider] -
[2016-10-13] MEDS: Insulin LISPRO 300 UNITS/3 ML VIAL SQ SCH ×7 (10:31→21:58)
[2016-10-13] MEDS: ALPRAZolam 0.25 MG TABLET PO SCH ×2 (10:37→21:53)
[2016-10-13] MEDS: Sennosides/Docusate Sodium TABLET PO SCH ×2 (10:39→21:54)
[2016-10-13] MEDS: Metoprolol 100 MG TABLET PO SCH ×2 (10:39→21:54)
[2016-10-13] MEDS: Aspirin 81 MG TAB.CHEW PO SCH (10:39)
[2016-10-13] MEDS: Diltiazem CD (24hr) 180 MG CAPSULE PO SCH (10:39)
[2016-10-13] MEDS: Furosemide 40 MG/4 ML VIAL IVP SCH ×2 (10:40→17:07)
[2016-10-13] MEDS: Lactulose Oral Soln 20 GM/30 ML UDC PO SCH ×2 (10:40→21:55)
[2016-10-13] MEDS: Nystatin POWDER 30 GM BOTTLE TP SCH ×3 (12:22→22:04)
--- NOTE | 2016-10-13 15:59 | Internal Med Progress Note ---
Date of Encounter: 10/13/16 Time of Encounter: 15:56 - Assessment and plan (1) Acute and chronic respiratory failure with hypoxia Current Visit: Yes Status: Acute Assessment and plan: Acute on chronic respiratory failure with hypoxia and hypercapnia due to combination of advanced chronic obstructive pulmonary disease, obesity hypoventilation syndrome , obstructive sleep apnea (likely advanced, former cigarette smoker) and chronic heart dysfunction (diastolic heart dysfunction, pulmonary hypertension, cor pulmonale). Currently on 7 L high flow nasal cannula. Continue Lasix IV, strict I's and O' s and daily weight, Continue BiPAP 10/12 she has been sating 93 on 12 l NC. will continue the high flow o2 with BIPAP prn to maintain sats at 88-92%. consulted pulmonary, no further additional intervention would improve the outcome at this time. full code at this point, patient may be eligible for hospice, continue the breathing treatments, incentive spirometry with the IV lasix 10/11 she was recently discharged from the hospital and has completed antibiotics for pneumonia. as per the daughter, her baseline oxygen requirement is 5-6 L to maintain sats from 90-92%. Chest x-ray shows bilateral opacities, slightly increased from before, however she does not have any cough or fever or worsening respiratory symptoms and reports that she is actually feeling bettr have held off on antibiotics, however has persistent hypoxia that seems to be getting worse and is currently on BIPAP. unclear if she has chronic thromboembolic disease which was brought up on her last admission, CTA could not be done given MARISSA, was started on elliquis emperically which had to be dc eventually due to rectal bleed. abg today shows po2 of 68 at 60% fio2. will consult pulmonary for any further recommendations. continue incentive spirometry. (2) Obesity hypoventilation syndrome Current Visit: No Status: Chronic Assessment and plan: continue BiPAP at night. Tried CPAP and failed (3) Diastolic heart failure Current Visit: Yes Status: Acute Assessment and plan: has b/l lower leg edema which is chronic, also has some pleural effusion. will continue lasix 40mg IV bid. Most likely will discharge on 60 mg of Lasix by mouth twice a day cardiology has signed off. Qualifiers: Heart failure chronicity: chronic Qualified Code(s): I50.32 - Chronic diastolic (congestive) heart failure (4) Hypokalemia Current Visit: Yes Status: Acute Assessment and plan: Repleted Continue potassium 20 mEq daily (5) Atrial tachycardia Current Visit: Yes Status: Acute (6) COPD (chronic obstructive pulmonary disease) Current Visit: Yes Status: Acute Qualifiers: COPD type: unspecified COPD Qualified Code(s): J44.9 - Chronic obstructive pulmonary disease, unspecified (7) Type 2 diabetes mellitus Current Visit: No Status: Chronic Assessment and plan: Continue insulin sliding scale Qualifiers: Diabetes mellitus complication status: with hyperglycemia Diabetes mellitus snf insulin use: without snf use Qualified Code(s): E11.65 - Type 2 diabetes mellitus with hyperglycemia - Subjective Interval history: Still feeling short of breath, denies any chest pain, no abdominal pain, no diarrhea or dysuria, no fevers - Constitutional Vitals: Temp Pulse Resp BP Pulse Ox 97.8 F 84 18 152/64 94 L 10/13/16 10:46 10/13/16 10:46 10/13/16 10:46 10/13/16 10:46 10/13/16 10:46 General appearance: Present: A&O X 3, morbidly obese, no acute distress - Head Head exam: Present: atraumatic, normocephalic - Eye Eye exam: Present: PERRL, conjuntiva pink, sclera anicteric Pupils: Present: PERRL - Neck Neck exam general surgery: Present: supple, trachea midline. Absent: lymphadenopathy - Respiratory Respiratory exam: Present: decreased breath sounds (Very diminished breath sounds), CTAB. Absent: accessory muscle use, rales, rhonchi, wheezes - Cardiovascular Cardiovascular exam: Present: RRR, +S1, +S2. Absent: diastolic murmur, gallop, rubs, systolic murmur - GI/Abdominal GI/Abdominal exam: Present: distended, normal bowel sounds, soft, no peritoneal signs. Absent: tenderness - Extremities Exam Extremities exam: Present: pedal edema (+2 pitting edema in both lower extremities slightly worse on the right), warm, radial pulses palpable and symetrical. Absent: calf tenderness, cyanotic - Neurological Exam Neurological exam: Present: CN II-XII intact, oriented X3, no focal deficits. Absent: pronater drift, facial droop, speech deficit - Skin Skin exam: Present: dry, intact Additional comments: Figueroa catheter in place Internal Medicine: Result - Labs CBC & Chem 7: 10/12/16 04:55 10/12/16 04:55 - ABG Interpretation ABG results: ABG ABG pH 7.47 pH Units (7.32-7.45) H 10/11/16 10:54 ABG pCO2 54 mmHg (35-45) H 10/11/16 10:54 ABG pO2 68 mmHg (85-104) L 10/11/16 10:54 ABG O2 Saturation 94 % (95-98) L 10/11/16 10:54 PT/INR, D-dimer PT 12.3 Seconds (9.4-12.1) H 10/08/16 13:34 - VTE Documentation of Mechanical Device: Intermittent pneumatic compression device Consult Discharge Plan - Plan Referrals: Eduardo Woodruff CNP [Advanced Practice Nurse] - 11/06/16 1:30 pm Eduardo Hernandez Jr, MD [Primary Care Provider] -
[2016-10-14] MEDS: Lactulose Oral Soln 20 GM/30 ML UDC PO SCH (09:36)
[2016-10-14] MEDS: Furosemide 40 MG/4 ML VIAL IVP SCH (09:36)
[2016-10-14] MEDS: Aspirin 81 MG TAB.CHEW PO SCH (09:36)
[2016-10-14] MEDS: ALPRAZolam 0.25 MG TABLET PO SCH (09:37)
[2016-10-14] MEDS: Sennosides/Docusate Sodium TABLET PO SCH (09:37)
[2016-10-14] MEDS: Diltiazem CD (24hr) 180 MG CAPSULE PO SCH (09:37)
[2016-10-14] MEDS: Nystatin POWDER 30 GM BOTTLE TP SCH (09:38)
[2016-10-14] MEDS: Metoprolol 100 MG TABLET PO SCH (09:38)
[2016-10-14] MEDS: *HR* Heparin 5,000 UNIT/ML VIAL SQ SCH (09:38)
[2016-10-14] MEDS: Insulin LISPRO 300 UNITS/3 ML VIAL SQ SCH ×4 (09:38→13:09)
[2016-10-14] MEDS: Budesonide/Formoterol 160/4.5 MDI IH SCH (10:46)
[2016-10-14] MEDS: Ipratropium/Albuterol Neb 3 ML IH PRN (10:47)
[2016-10-14] MEDS: Acetaminophen 325 MG TABLET PO PRN (11:19)
[2016-10-14] MEDS: Tiotropium 18 MCG inhalation IH SCH (11:29)
[2016-10-14 11:31] VITALS: BP 123/85
--- NOTE | 2016-10-14 12:36 | Discharge Summary ---
Date of Encounter: 10/14/16 Time of Encounter: 12:29 - Discharge Diagnosis (1) Acute and chronic respiratory failure with hypoxia Priority: Primary Status: Acute Comments: Acute on chronic respiratory failure with hypoxia and hypercapnia due to combination of advanced chronic obstructive pulmonary disease, obesity hypoventilation syndrome , obstructive sleep apnea (likely advanced, former cigarette smoker) and chronic heart dysfunction (diastolic heart dysfunction, pulmonary hypertension, cor pulmonale). Currently on 7 L high flow nasal cannula. Continue Lasix IV, strict I's and O' s and daily weight, Continue BiPAP (2) Obesity hypoventilation syndrome Priority: Primary Status: Chronic (3) Diastolic heart failure Priority: Primary Status: Acute Qualifiers: Heart failure chronicity: chronic Qualified Code(s): I50.32 - Chronic diastolic (congestive) heart failure (4) Hypokalemia Priority: Secondary Status: Acute (5) Atrial tachycardia Priority: Secondary Status: Acute (6) COPD (chronic obstructive pulmonary disease) Priority: Secondary Status: Acute Qualifiers: COPD type: unspecified COPD Qualified Code(s): J44.9 - Chronic obstructive pulmonary disease, unspecified (7) Type 2 diabetes mellitus Priority: Secondary Status: Chronic Qualifiers: Diabetes mellitus complication status: with hyperglycemia Diabetes mellitus mcfp insulin use: without long term acute care registered nurse use Qualified Code(s): E11.65 - Type 2 diabetes mellitus with hyperglycemia - Discharge Medications Home Medications: Albuterol Sulfate [Albuterol Inhaler] 2 puff IH Q4H PRN 08/23/16 [History] Amitriptyline [Elavil] 10 mg PO HS 08/23/16 [History] Ascorbate Calcium [Vitamin C] 500 mg PO DAILY 08/23/16 [History] Aspirin 81 mg PO DAILY 08/23/16 [History] Calcium Carbonate/Vitamin D3 [Calcium 600 with Vit D Chew Tb] 1 each PO DAILY [History] Ergocalciferol (VITAMIN D2) [Vitamin D] 400 unit PO DAILY 08/23/16 [History] Fish Oil/Dha/Epa [Fish Oil 1,200 mg Fish Oil] 1 cap PO DAILY 08/23/16 [History] Fluticasone Propionate Nasal [Flonase] 50 mcg NS DAILY PRN 08/23/16 [History] Hydroxyzine HCl 25 mg PO HS PRN 08/23/16 [History] Metoprolol [Lopressor] 100 mg PO BID 08/23/16 [History] Tiotropium [place] [Spiriva] 18 mcg IH DAILY 08/23/16 [History] Vitamin B Complex 1 cap PO DAILY 08/23/16 [History] Budesonide/Formoterol 160/4.5 [Symbicort 160/4.5] 2 puff IH BIDR #1 inhaler [Rx] Ipratropium/Albuterol Neb [Duoneb] 3 ml IH QIDR PRN #100 aerosol 08/27/16 [Rx] Metformin [Glucophage] 500 mg PO BID #60 tablet 08/27/16 [Rx] Nystatin POWDER [Nystop] 1 appl TP BID #1 bottle 08/27/16 [Rx] Amlodipine [Norvasc] 5 mg PO DAILY 09/21/16 [History] Oxygen 2 l NS CONT 09/21/16 [History] Alprazolam [Xanax 0.25 MG Tablet] 0.5 mg PO BID #30 tablet 10/01/16 [Rx] Budesonide Neb [Pulmicort Neb] 0.5 mg IH BIDR inhsol 10/01/16 [Rx] Diltiazem [Cardizem] 30 mg PO Q8HR tablet 10/01/16 [Rx] GuaiFENesin/Dextromethorphan [Robitussin/Dm] 10 ml PO BID PRN #0 udc 10/01/16 [ Rx] Acetaminophen [Tylenol] 650 mg PO Q6HR 10/08/16 [History] Furosemide [Lasix] 40 mg PO BID 10/08/16 [History] Insulin LISPRO [HumaLOG] 2 - 12 units SQ TIDWM 10/08/16 [History] Lactulose [Enulose] 20 gm PO BID 10/08/16 [History] Lovastatin 10 mg PO DAILY 10/08/16 [History] Sennosides/Docusate Sodium [Senna Plus] 1 tab PO BID 10/08/16 [History] Allergies/Adverse Reactions: Allergies No Known Allergies Allergy (Verified 08/23/16 19:46) Date of admission: 10/08/16 17:32 Primary care physician: Eduardo Hernandez Jr, MD Consults: 10/09/16 09:16 Consult to Third Grade Teacher [CONS] Routine Reason for SW Consult: Poss return to [facility] 10/11/16 12:07 Consult to Pulmonology [CONS] Routine Consulting Provider: Pulm Crit Care [facility] Sleep Rita Reason for Consult: please evaluate for persistent hypoxia in this patient with chronic respiratory failure 2/2 advanced COPD, CAMILLE ,OHS and obesity for any further intervention. thank you Call Completed: Yes 10/12/16 11:55 Consult to Palliative Care [CONS] Routine Comment: Consulting Provider: Palliative Care Rita 10/12/16 13:25 Consult to Physical Therapy [CONS] Routine Comment: Evaluate, develop and implement POC OT [Consult to Occupational Therapy] [CONS] Routine Comment: Evaluate, develop and implement POC - Patient Status Disposition: Home Health Service Condition: Fair Overall status at discharge: patient is progressing back to baseline - Discharge Instructions Follow Up With: Eduardo Woodruff CNP [Advanced Practice Nurse] - 11/06/16 1:30 pm Eduardo Hernandez Jr, MD [Primary Care Provider] - Additional Instructions: Follow-up with primary care physician within the next 7 days. Follow-up with pulmonary services within the next 2 weeks. Continue oxygen at home, prescription for 7 L/m was given. Use BiPAP as needed during the day and at night. Lasix was increased to 60 mg twice a day. Keep the fluid intake daily including diet of 1500 mL per day, if fluid intake is better controlled may be able to go back to her old dose of Lasix 40 g twice a day will be adjusted by the primary care physician - Diet and Activity Activity: increase activity as tolerated, wear oxygen at all times Diet: low fat, low cholesterol Hospital course: Ms. Pollcak is a 70 year old female with advanced lung disease presenting to the emergency department with elevated heart rate and hypoxia. Ms. Pollack has had 3 hospital admissions in the past 3 months. Prior to admission, she was seeking rehabilitation at a local extended care facility. She had a recent admission from 09/22/2016 to 10/01/2016 for similar complaints. When she started to develop symptoms of tachycardia/palpitations and hypoxia, she was transferred to the emergency department and eventually admitted for further workup and evaluation. Cardiology was consulted, and initiated further treatment for multifocal atrial tachycardia. Starting from her most recent admission in August, Ms. Pollack has required increasing amounts of supplemental oxygen to maintain her oxygen saturations. Prior to 2016, her typical use of supplemental oxygen was only at night at a rate of 2 L/m. After hospitalization for pneumonia in July 2016, she was increased to 4 L/m and asked to wear the oxygen [id number]. Her most recent admission required yet another increase in her supplemental oxygen as high as 10 L/m with a high flow nasal cannula. She was discharged to the [facility] with oxygen requirements of 10 L/m. Despite the support, along with BiPAP therapy, she became hypoxic and required transfer back to [facility]. Pulmonology services have been following her as an outpatient prior to this admission. She is on optimal therapy for her chronic lung disease. Her goal is to maintain oxygen saturations greater than or equal to 88%. The palliative care team was consulted to assist in goals of care planning as the patient has advanced lung disease. Was sating 93 on 12 l NC. . Chest x-ray shows bilateral opacities, slightly increased from before, however she did not have any cough or fever or worsening respiratory symptoms and reports that she is actually feeling better Pulmonary service recomended to hold off on antibiotics, however has persistent hypoxia that seems to be getting worse and required BIPAP. unclear if she has chronic thromboembolic disease which was brought up on her last admission. CTA could not be done given MARISSA, was started on elliquis emperically which had to be discontinued eventually due to rectal bleed. will continue the high flow o2 with BIPAP prn to maintain sats at 88-92%. consulted pulmonary, no further additional intervention would improve the outcome at this time. full code continue the breathing treatments, incentive spirometry, lasix will be increased from 40 to 60 mg twice a day Her family is prepared to stay with her for 24-hour care provided as needed. - Time Spent with Patient Total time spent providing and/or coordinating discharge services: Greater than 30 minutes (40 min) - Constitutional Vitals: Temp Pulse Resp BP Pulse Ox 98.1 F 104 18 123/85 90 L 10/14/16 11:25 10/14/16 11:25 10/14/16 11:25 10/14/16 11:25 10/14/16 11:25 General appearance: Present: A&O X 3, morbidly obese, no acute distress - Head Head exam: Present: atraumatic, normocephalic - Eye Eye exam: Present: PERRL, conjuntiva pink, sclera anicteric Pupils: Present: PERRL - Neck Neck exam general surgery: Present: supple, trachea midline. Absent: lymphadenopathy - Respiratory Respiratory exam: Present: decreased breath sounds, CTAB, rales (Bibasilar fine crackles). Absent: accessory muscle use, rhonchi, wheezes - Cardiovascular Cardiovascular exam: Present: RRR, +S1, +S2. Absent: diastolic murmur, gallop, rubs, systolic murmur - GI/Abdominal GI/Abdominal exam: Present: normal bowel sounds, soft, no peritoneal signs. Absent: distended, tenderness - Extremities Exam Extremities exam: Present: pedal edema (+2 pitting edema in both lower extremities), warm, radial pulses palpable and symetrical. Absent: calf tenderness, cyanotic - Neurological Exam Neurological exam: Present: CN II-XII intact, oriented X3, no focal deficits. Absent: pronater drift, facial droop, speech deficit - Skin Skin exam: Present: dry, intact - VTE Documentation of Mechanical Device: Intermittent pneumatic compression device
--- NOTE | 2016-10-14 12:40 | Physician Discharge Referral ---
Home Health/Hosp Referral Info Transfer to: Home Health Provider in Charge Post Discharge: PCP - Diagnosis (1) Acute and chronic respiratory failure with hypoxia Status: Acute (2) Obesity hypoventilation syndrome Status: Chronic (3) Diastolic heart failure Status: Acute (4) Hypokalemia Status: Acute (5) Atrial tachycardia Status: Acute (6) COPD (chronic obstructive pulmonary disease) Status: Acute (7) Type 2 diabetes mellitus Status: Chronic - Respiratory Orders Oxygen / L per min (4-7) Smoking Cessation: Smoking cessation has been advised. For more information, call the [place] Tobacco Quit Line at 5-793-RMOM-NOW. - Diet/Nutrition Diet/Nutrition Orders: No Added Salt (EDWAR) - Services Needed Following services are medically necessary services: Nursing, Home Health Aide, Physical Therapy Home Care Orders: Follow-up with primary care physician within the next 7 days. Follow-up with pulmonary services within the next 2 weeks. Continue oxygen at home, prescription for 7 L/m was given. Use BiPAP as needed during the day and at night. Lasix was increased to 60 mg twice a day. Keep the fluid intake daily including diet of 1500 mL per day, if fluid intake is better controlled may be able to go back to her old dose of Lasix 40 g twice a day will be adjusted by the primary care physician - Transfer Medications Home Medications: Albuterol Sulfate [Albuterol Inhaler] 2 puff IH Q4H PRN 08/23/16 [History] Amitriptyline [Elavil] 10 mg PO HS 08/23/16 [History] Ascorbate Calcium [Vitamin C] 500 mg PO DAILY 08/23/16 [History] Aspirin 81 mg PO DAILY 08/23/16 [History] Calcium Carbonate/Vitamin D3 [Calcium 600 with Vit D Chew Tb] 1 each PO DAILY [History] Ergocalciferol (VITAMIN D2) [Vitamin D] 400 unit PO DAILY 08/23/16 [History] Fish Oil/Dha/Epa [Fish Oil 1,200 mg Fish Oil] 1 cap PO DAILY 08/23/16 [History] Fluticasone Propionate Nasal [Flonase] 50 mcg NS DAILY PRN 08/23/16 [History] Hydroxyzine HCl 25 mg PO HS PRN 08/23/16 [History] Metoprolol [Lopressor] 100 mg PO BID 08/23/16 [History] Tiotropium [place] [Spiriva] 18 mcg IH DAILY 08/23/16 [History] Vitamin B Complex 1 cap PO DAILY 08/23/16 [History] Budesonide/Formoterol 160/4.5 [Symbicort 160/4.5] 2 puff IH BIDR #1 inhaler [Rx] Ipratropium/Albuterol Neb [Duoneb] 3 ml IH QIDR PRN #100 aerosol 08/27/16 [Rx] Metformin [Glucophage] 500 mg PO BID #60 tablet 08/27/16 [Rx] Nystatin POWDER [Nystop] 1 appl TP BID #1 bottle 08/27/16 [Rx] Amlodipine [Norvasc] 5 mg PO DAILY 09/21/16 [History] Oxygen 2 l NS CONT 09/21/16 [History] Alprazolam [Xanax 0.25 MG Tablet] 0.5 mg PO BID #30 tablet 10/01/16 [Rx] Budesonide Neb [Pulmicort Neb] 0.5 mg IH BIDR inhsol 10/01/16 [Rx] Diltiazem [Cardizem] 30 mg PO Q8HR tablet 10/01/16 [Rx] GuaiFENesin/Dextromethorphan [Robitussin/Dm] 10 ml PO BID PRN #0 udc 10/01/16 [ Rx] Acetaminophen [Tylenol] 650 mg PO Q6HR 10/08/16 [History] Furosemide [Lasix] 40 mg PO BID 10/08/16 [History] Insulin LISPRO [HumaLOG] 2 - 12 units SQ TIDWM 10/08/16 [History] Lactulose [Enulose] 20 gm PO BID 10/08/16 [History] Lovastatin 10 mg PO DAILY 10/08/16 [History] Sennosides/Docusate Sodium [Senna Plus] 1 tab PO BID 10/08/16 [History] Allergies/Adverse Reactions: Allergies No Known Allergies Allergy (Verified 08/23/16 19:46) Certification: Further, I certify that my clinical findings support that this patient is homebound (i.e. absences from home require considerable and taxing effort and are for medical reasons or restoration services or infrequently or short duration when for other reasons) because: Homebound Reason: Patient requires assistance of a person or device to safely leave home Attestation: My signature below is to certify that this patient is under my care and that I, or nurse practitioner, or a physician's high school assistant football coach working with me, has a face-to -face encounter with this patient.
== END 2016-10-14 14:27 | disposition home health service (06) | DRG 291 ==
LOC: 2NENU 12:48 → EMEROO 12:48 → 2NENU 16:45 → SUATTDRO 17:32 → 2NENU 18:51
PROVIDERS: ADMIT Internal Medicine; ATTEND Internal Medicine

== ENCOUNTER 2016-12-06 22:05 | Inpatient (IN) ==
[2016-12-06] MEDS ORDERED: 0.9 % Sodium Chloride 1,000 ML IVC ONE (22:10)
[2016-12-06] MEDS ORDERED: Ipratropium/Albuterol Neb 3 ML IH ONE (22:12)
[2016-12-06] MEDS ORDERED: Vancomycin 1,000 MG in D5% in Water 250 ML IVPB ONE (22:13)
[2016-12-06] MEDS ORDERED: methylPREDNISolone 125 MG/2 ML VIAL IVP ONE (22:13)
[2016-12-06] MEDS ORDERED: Piperacillin/Tazobactam 3.375 GM in D5% in Water (Mini-Bag+) 100 ML IVPB ONE (22:14)
[2016-12-06] MEDS ORDERED: Levofloxacin 750 MG/150 ML 750 MG/150 ML BAG IVPB ONE (22:14)
--- NOTE | 2016-12-06 22:18 | Emergency Department Note ---
Disposition Clinical Impression: Respiratory distress, Severe sepsis Pneumonia Qualifiers: Pneumonia type: due to unspecified organism Laterality: bilateral Lung location : lower lobe of lung Qualified Code(s): J18.9 - Pneumonia, unspecified organism COPD (chronic obstructive pulmonary disease) Qualifiers: COPD type: unspecified COPD Qualified Code(s): J44.9 - Chronic obstructive pulmonary disease, unspecified Sepsis Qualifiers: Sepsis type: sepsis due to unspecified organism Qualified Code(s): A41.9 - Sepsis, unspecified organism Disposition: Admitted As Inpatient Condition: Fair SOB HPI - General Chief Complaint: ED Shortness of Breath/Dyspnea Stated Complaint: Dyspnea Time Seen by Provider: 12/06/16 22:10 Source: patient, EMS Mode of arrival: EMS Limitations: no limitations Nursing Notes Reviewed: Yes Vital Signs Reviewed: Yes - History of Present Illness 70-year-old female history of COPD, CHF presents from an extended care facility for concerns of dyspnea. Patient is typically on 4-6 L with her oxygen saturation between 88-90%. Patient notes dyspnea over the past 2 days. Notes a productive cough. Patient did have a fever upon arrival. Patient denies any chest pain. No nausea vomiting. Patient does note worsening dyspnea. Denies any of other symptoms. EMS reported the patient was hypoxic with a room air oxygen saturation in the low 80s on her for 6 L. Patient was transported with 15 L nonrebreather remained hypoxic with oxygen saturation 78%. Patient was initially transitioned to BiPAP upon arrival to the emergency department. Pt Subjective Complaint: shortness of breath - Related Data Home Medications Medication Instructions Recorded Confirmed Albuterol Sulfate [Albuterol 2 puff IH Q4H PRN 08/23/16 12/06/16 Inhaler] Amitriptyline [Elavil] 10 mg PO HS 08/23/16 12/06/16 Ascorbate Calcium [Vitamin C] 500 mg PO DAILY 08/23/16 12/06/16 Aspirin 81 mg PO DAILY 08/23/16 12/06/16 Fish Oil/Dha/Epa [Fish Oil 1,200 1 cap PO DAILY 08/23/16 12/06/16 mg Fish Oil] Metoprolol [Lopressor] 100 mg PO BID 08/23/16 12/06/16 Tiotropium [place] [Spiriva] 18 mcg IH DAILY 08/23/16 12/06/16 Vitamin B Complex 1 cap PO DAILY 08/23/16 12/06/16 hydrOXYzine HCl [Hydroxyzine HCl] 25 mg PO DAILY PRN 08/23/16 12/06/16 Oxygen 2 l NS CONT 09/21/16 12/06/16 ALPRAZolam [Xanax 0.25 MG Tablet] 0.25 mg PO HS PRN 12/06/16 12/06/16 Biotin 1 mg PO DAILY 12/06/16 12/06/16 Budesonide/Formoterol 160/4.5 2 puff IH DAILY 12/06/16 12/06/16 [Symbicort 160/4.5] Calcium Carbonate [Calcium] 500 mg PO DAILY 12/06/16 12/06/16 Cholecalciferol (D-3) [Vitamin D] 1,000 unit PO DAILY 12/06/16 12/06/16 Docusate [Colace] 100 mg PO DAILY PRN 12/06/16 12/06/16 Ipratropium/Albuterol Neb [Duoneb] 3 ml IH QIDR 12/06/16 12/06/16 Lovastatin 40 mg PO HS 12/06/16 12/06/16 Multivit-Min/Iron/Folic/Lutein 1 each PO DAILY 12/06/16 12/06/16 [Centrum Silver Women Tablet] Multivits Min/Iron/FA/Herb#186 1 each PO DAILY 12/06/16 12/06/16 [Hair, Skin & Nails Caplet] Vitamin E Acid Succinate [Vitamin 400 units PO DAILY 12/06/16 12/06/16 E] Previous Rx's Medication Instructions Recorded Nystatin POWDER [Nystop] 1 appl TP BID #1 bottle 08/27/16 metFORMIN [Glucophage] 500 mg PO BID #60 tablet 08/27/16 Diltiazem CD (24hr) [Cardizem CD] 180 mg PO DAILY #30 cap.er.24h 10/14/16 Furosemide [Lasix] 60 mg PO BID #60 tablet 10/14/16 Allergies Allergy/AdvReac Type Severity Reaction Status Date / Time No Known Allergies Allergy Verified 08/23/16 19:46 All systems ED: reviewed and negative except as stated. Constitutional: Reports: as per HPI, fever Eyes: Reports: as per HPI ENT ED: Reports: as per HPI Cardiovascular: Reports: as per HPI. Denies: chest pain Respiratory: Reports: as per HPI, cough, dyspnea, sputum production Gastrointestinal: Reports: as per HPI Genitourinary: Reports: as per HPI Musculoskeletal: Reports: as per HPI Integumentary: Reports: as per HPI Neurological: Reports: as per HPI Psychiatric: Reports: as per HPI Endocrine: Reports: as per HPI Hematological/Lymphatic: Reports: as per HPI Allergic/Immunologic: Reports: as per HPI Past Medical History - Past Medical History Medical history: Reports: CHF, COPD, DVT, diabetes, hyperlipidemia, hypertension Surgical history: Reports: appendectomy, Psychiatric history: Reports: anxiety, depression - Social History Smoking Status: Former smoker Smokeless Tobacco Status: No Alcohol use: Reports: none Drug use: Reports: none Physical Exam - General Limitations: no limitations General appearance: alert, in distress, obese - Head Head exam: atraumatic, normocephalic, normal inspection - Eye Eye exam: Present: normal appearance, EOMI - ENT ENT exam: normal exam, mucous membranes dry - Neck Neck exam: Present: normal inspection, trachea midline - Chest Chest inspection: Present: normal inspection, symmetric chest wall rise - Respiratory Respiratory exam: Present: respiratory distress, accessory muscle use, prolonged expiratory phase, other (Diffusely decreased breath sounds bilaterally ) - Cardiovascular Cardiovascular exam: Present: normal rhythm, tachycardia. Absent: systolic murmur - Abdominal Exam Abdominal exam: Present: soft, Non-Tender - Extremities Exam Extremities exam: Present: normal inspection, pedal edema (Trace bilateral) - Back Exam Back exam: Present: normal inspection - Neurological Exam Neurological exam: Present: alert, oriented X3 - Skin Skin exam: Present: warm, dry, intact, normal color Course Course Narrative: Patient was initially transitioned to posit pressure ventilation upon arrival. Patient was tachypnea can tachycardic. Patient also had a fever. Patient does trigger sirs criteria with likely source in the lungs. Patient is given initially 1 L fluid bolus. Concerns about giving the patient 30 mL/kg bolus as she does have his concerning history of heart failure. Patient's symptoms likely related to pneumonia. Patient's also be given breathing treatments or steroids. Patient will be admitted for further evaluation. - Reevaluation(s) Reevaluation #1: Patient seen and examined. Patient's breathing more comfortably with the BiPAP. Patient's tachycardia has improved with anti-inflammatories as well as IV fluid hydration. Update family on plan of care. Patient would like to be intubated if her respiratory status came to that point. Family at bedside verbalized understanding. Time: 23:09 Vital Signs Temperature 103.0 F H 12/06/16 22:06 Pulse Rate 158 12/06/16 22:06 Respiratory Rate 22 12/06/16 22:06 Blood Pressure 130/54 12/06/16 22:06 O2 Sat by Pulse Oximetry 84 12/06/16 22:06 Temperature 103.0 F H 12/06/16 22:06 Pulse Rate 114 12/06/16 23:33 Respiratory Rate 33 12/06/16 23:33 Blood Pressure 170/62 12/06/16 23:33 O2 Sat by Pulse Oximetry 91 12/06/16 23:33 Oxygen Delivery Oxygen Delivery Bipap Shortness of Breath/Dyspnea - MDM Narrative Medical decision making narrative: 70-year-old female fetus for evaluation of respiratory distress. Patient has a history of COPD. Patient's chest x-ray shows bilateral pneumonia. Patient clinically has pneumonia. Patient was requiring increasing oxygen supplementation. Transition to BiPAP initially. Patient's chest x-ray shows bilateral pneumonia. Patient was given initial fluid bolus. Concerns about over fluid overloading the patient with a 30 mL/kg bolus with unknown cardiac function. Patient received triple antibiotics. Patient's lactate is normal. Patient's family as well as patient is updated on plan of care. Patient is a full code verbalized at bedside. Patient will be admitted to the hospital service for further evaluation and monitoring. - Lab Data Lab results reviewed: Yes I reviewed the patient's lab results. Result diagrams: 12/06/16 22:18 12/06/16 22:18 Lab Results 12/06/16 12/06/16 12/06/16 Range/Units 22:18 22:18 22:18 WBC 12.3 H (4.3-11.1) K/mcL RBC 3.85 (3.82-4.97) M/mcL Hgb 11.5 (11.5-15.4) g/dL Hct 35.9 (35.3-44.9) % MCV 93.2 (83.0-100.0) fL MCH 29.9 (28.0-33.3) pg MCHC 32.0 (31.6-35.5) g/dL RDW 15.3 H (11.5-14.5) % Plt Count 160 (140-400) K/mcL MPV 10.3 (9.4-12.4) fL Immature Gran % 0.4 (0-4) % Seg Neutrophils % 77.6 % Lymphocytes % 14.1 % Monocytes % 6.9 % Eosinophils % 0.7 % Basophils % 0.3 % Neutrophils # 9.5 H (1.6-8.9) K/mcL Lymphocytes # 1.7 (0.6-4.6) K/mcL Monocytes # 0.9 (0.0-1.3) K/mcL Eosinophils # 0.1 (0.0-0.6) K/mcL Basophils # 0.0 (0.0-0.2) K/mcL Platelet Estimate Normal (Normal) PT 12.3 H (9.4-12.1) Seconds INR 1.1 APTT 25.9 L (26.0-36.0) Seconds ABG pH (7.32-7.45) pH Units ABG pCO2 (35-45) mmHg ABG pO2 (85-104) mmHg ABG HCO3 (21-27) mEQ/L ABG Total CO2 (20-26) mEq/L ABG O2 Saturation (95-98) % ABG Base Excess (-2.0 to 3.0) mEq/L Blood Gas Modality Inspired O2 % Sodium 139 (136-145) mEq/L Potassium 3.8 (3.5-4.5) mEq/L Chloride 97 L (98-109) mEq/L Carbon Dioxide 31 H (19-29) mEq/L BUN 25 H (7-20) mg/dL Creatinine 1.11 (0.57-1.11) mg/dL Est GFR ( Amer) 59 L (> 60) Est GFR (Non-Af Amer) 49 L (> 60) BUN/Creatinine Ratio 23 (6-26) Glucose 156 H (70-99) mg/dL Calculated Osmolality 296 (280-300) Lactic Acid (0.5-2.2) mmol/L Calcium 9.4 (8.6-10.8) mg/dL Phosphorus 2.5 (2.3-4.7) mg/dL Magnesium 1.6 (1.6-2.6) mg/dL Total Bilirubin 0.8 (0.2-1.2) mg/dL Direct Bilirubin 0.4 (0.0-0.5) mg/dL Indirect Bilirubin 0.4 (0.0-1.2) mg/dL AST 13 (5-34) Units/L ALT 15 (0-55) Units/L Alkaline Phosphatase 60 (38-126) Units/L Troponin I (0-0.03) ng/mL B-Natriuretic Peptide (0-100) pg/mL Serum Total Protein 7.5 (6.0-8.3) g/dL Albumin 3.2 L (3.5-5.0) g/dL Globulin 4.3 H (2.4-3.5) g/dL Albumin/Globulin Ratio 0.7 L (1.1-2.2) 12/06/16 12/06/16 12/06/16 Range/Units 22:18 22:18 22:18 WBC (4.3-11.1) K/mcL RBC (3.82-4.97) M/mcL Hgb (11.5-15.4) g/dL Hct (35.3-44.9) % MCV (83.0-100.0) fL MCH (28.0-33.3) pg MCHC (31.6-35.5) g/dL RDW (11.5-14.5) % Plt Count (140-400) K/mcL MPV (9.4-12.4) fL Immature Gran % (0-4) % Seg Neutrophils % % Lymphocytes % % Monocytes % % Eosinophils % % Basophils % % Neutrophils # (1.6-8.9) K/mcL Lymphocytes # (0.6-4.6) K/mcL Monocytes # (0.0-1.3) K/mcL Eosinophils # (0.0-0.6) K/mcL Basophils # (0.0-0.2) K/mcL Platelet Estimate (Normal) PT (9.4-12.1) Seconds INR APTT (26.0-36.0) Seconds ABG pH (7.32-7.45) pH Units ABG pCO2 (35-45) mmHg ABG pO2 (85-104) mmHg ABG HCO3 (21-27) mEQ/L ABG Total CO2 (20-26) mEq/L ABG O2 Saturation (95-98) % ABG Base Excess (-2.0 to 3.0) mEq/L Blood Gas Modality Inspired O2 % Sodium (136-145) mEq/L Potassium (3.5-4.5) mEq/L Chloride (98-109) mEq/L Carbon Dioxide (19-29) mEq/L BUN (7-20) mg/dL Creatinine (0.57-1.11) mg/dL Est GFR ( Amer) (> 60) Est GFR (Non-Af Amer) (> 60) BUN/Creatinine Ratio (6-26) Glucose (70-99) mg/dL Calculated Osmolality (280-300) Lactic Acid 1.5 (0.5-2.2) mmol/L Calcium (8.6-10.8) mg/dL Phosphorus (2.3-4.7) mg/dL Magnesium (1.6-2.6) mg/dL Total Bilirubin (0.2-1.2) mg/dL Direct Bilirubin (0.0-0.5) mg/dL Indirect Bilirubin (0.0-1.2) mg/dL AST (5-34) Units/L ALT (0-55) Units/L Alkaline Phosphatase (38-126) Units/L Troponin I 0.01 (0-0.03) ng/mL B-Natriuretic Peptide 87 (0-100) pg/mL Serum Total Protein (6.0-8.3) g/dL Albumin (3.5-5.0) g/dL Globulin (2.4-3.5) g/dL Albumin/Globulin Ratio (1.1-2.2) 12/06/16 Range/Units 23:01 WBC (4.3-11.1) K/mcL RBC (3.82-4.97) M/mcL Hgb (11.5-15.4) g/dL Hct (35.3-44.9) % MCV (83.0-100.0) fL MCH (28.0-33.3) pg MCHC (31.6-35.5) g/dL RDW (11.5-14.5) % Plt Count (140-400) K/mcL MPV (9.4-12.4) fL Immature Gran % (0-4) % Seg Neutrophils % % Lymphocytes % % Monocytes % % Eosinophils % % Basophils % % Neutrophils # (1.6-8.9) K/mcL Lymphocytes # (0.6-4.6) K/mcL Monocytes # (0.0-1.3) K/mcL Eosinophils # (0.0-0.6) K/mcL Basophils # (0.0-0.2) K/mcL Platelet Estimate (Normal) PT (9.4-12.1) Seconds INR APTT (26.0-36.0) Seconds ABG pH 7.40 (7.32-7.45) pH Units ABG pCO2 51 H (35-45) mmHg ABG pO2 67 L (85-104) mmHg ABG HCO3 31.6 H (21-27) mEQ/L ABG Total CO2 33.2 H (20-26) mEq/L ABG O2 Saturation 93 L (95-98) % ABG Base Excess 5.7 H (-2.0 to 3.0) mEq/L Blood Gas Modality BIPAP Inspired O2 80 % Sodium (136-145) mEq/L Potassium (3.5-4.5) mEq/L Chloride (98-109) mEq/L Carbon Dioxide (19-29) mEq/L BUN (7-20) mg/dL Creatinine (0.57-1.11) mg/dL Est GFR ( Amer) (> 60) Est GFR (Non-Af Amer) (> 60) BUN/Creatinine Ratio (6-26) Glucose (70-99) mg/dL Calculated Osmolality (280-300) Lactic Acid (0.5-2.2) mmol/L Calcium (8.6-10.8) mg/dL Phosphorus (2.3-4.7) mg/dL Magnesium (1.6-2.6) mg/dL Total Bilirubin (0.2-1.2) mg/dL Direct Bilirubin (0.0-0.5) mg/dL Indirect Bilirubin (0.0-1.2) mg/dL AST (5-34) Units/L ALT (0-55) Units/L Alkaline Phosphatase (38-126) Units/L Troponin I (0-0.03) ng/mL B-Natriuretic Peptide (0-100) pg/mL Serum Total Protein (6.0-8.3) g/dL Albumin (3.5-5.0) g/dL Globulin (2.4-3.5) g/dL Albumin/Globulin Ratio (1.1-2.2) - Radiology Data Radiology results reviewed: Yes I reviewed the patient's radiology results. Chest X-Ray 12/06/16 22:11 IMPRESSION: Cardiomegaly with bilateral middle lower lung airspace disease superimposed upon obstructive lung disease. Findings could represent pulmonary edema versus pneumonia. Correlation is recommended. D/ / Radha Mohan Cha, MD / Radha Mohan Cha, MD Interpreting Provider: Radha Mohan Cha, MD - EKG Data EKG attestation: Yes I reviewed and interpreted this EKG. EKG shows normal: Reports: sinus rhythm Rate: Reports: tachycardia Rhythm: Reports: NSR [place]/QRS: Reports: normal ST segment depression in: Reports: v3, v4, v5 When compared to previous EKG there are: no significant changes Interpretation: Reports: no acute changes, nonspecific ST-T wave changes Critical Care Time Critical Care Time: Yes Total Critical Care Time: 40 Attestation: Critical care performed: Time is exclusive of separately billable procedures. Time includes: direct patient care, patient reassessment, coordination of patient care, interpretation of data (laboratory data, radiology data, and respiratory data), review of patient's medical records, medical consultation and documentation of patient care. Procedures included in critical care time: Procedures excluded from critical care time: S.B.AAnthony - S.B.A.RSandi Situation: Demographics Background: Presenting Complaint Assessment: Vital Signs, Course and respsone to treatment, Patient/Family Expectation Recommendation: Barrier(s) to disposition, Recommendation based on pending studies, treatments, or consults S.B.A.RSandi Report Given to: Dr. Lupe Chowdary Repor Time: 23:17 Attestation Statement - Attestation Attestation: I, Fabrizio Zabala MD, personally evaluated this patient and discussed their management with the resident physician. I reviewed the resident's note and agree with the documented findings, medical decision making, and plan of care. 70-year-old female with history of CHF presents to the emergency department with respiratory distress. She complains of increasing shortness of breath for the past few days. No chest pain. She developed a fever this evening. Temperature on arrival here was 103. Patient oxygen saturations were in the 70s at home and on arrival here oxygen saturation in the mid 80s on a nonrebreather mask. On examination patient is a well-developed obese elderly female in moderate respiratory distress. She is alert and oriented and answers questions appropriately. No cyanosis or diaphoresis. Breath sounds are decreased bilaterally with a few rales in the right base. Heart is very tachycardic and regular. Abdomen is soft and nontender with normal bowel sounds. EKG shows a sinus tachycardia. Chest x-ray shows bilateral mid and lower lung airspace disease. Labs reviewed. Patient meet severe sepsis criteria. We will not get the fluid bolus due to her history of CHF. Initial lactic acid is normal. Blood cultures obtained and IV antibiotics initiated for pneumonia. The hospitalist, Dr. Andrade, was consulted to the admission of the patient.
[2016-12-06 22:29] LABS: Basophils % 0.3 %; Eosinophils # 0.1 K/mcL (0.0-0.6); Eosinophils % 0.7 %; Hematocrit 35.9 % (35.3-44.9); Hemoglobin 11.5 g/dL (11.5-15.4); Immature Granulocytes % 0.4 % (0-4); Lymphocytes # 1.7 K/mcL (0.6-4.6); Lymphocytes % 14.1 %; Mean Corpuscular Hemoglobin 29.9 pg (28.0-33.3); Mean Corpuscular Volume 93.2 fL (83.0-100.0); Mean Platelet Volume 10.3 fL (9.4-12.4); Monocytes % 6.9 %; Neutrophils # 9.5 K/mcL (1.6-8.9); Platelet Count 160 K/mcL (140-400); Red Blood Count 3.85 M/mcL (3.82-4.97); Red Cell Distribution Width 15.3 % (11.5-14.5); Segmented Neutrophils % 77.6 %
[2016-12-06 22:33] LABS: INR 1.1; Monocytes # 0.9 K/mcL (0.0-1.3); Prothrombin Time 12.3 Seconds (9.4-12.1)
[2016-12-06 22:36] LABS: Activated Partial Thrombo Time 25.9 Seconds (26.0-36.0)
[2016-12-06 22:42] LABS: Albumin 3.2 g/dL (3.5-5.0); Albumin/Globulin Ratio 0.7 (1.1-2.2); Bilirubin,Direct 0.4 mg/dL (0.0-0.5); Bilirubin,Indirect 0.4 mg/dL (0.0-1.2); Bilirubin,Total 0.8 mg/dL (0.2-1.2); Calcium 9.4 mg/dL (8.6-10.8); Globulin 4.3 g/dL (2.4-3.5); Magnesium 1.6 mg/dL (1.6-2.6); Phosphorous 2.5 mg/dL (2.3-4.7); Potassium 3.8 mEq/L (3.5-4.5); Total Protein 7.5 g/dL (6.0-8.3)
[2016-12-06 22:50] LABS: Platelet Estimate Normal (Normal)
[2016-12-06 23:04] LABS: ABG Base Excess 5.7 mEq/L (-2.0 to 3.0); ABG HCO3 31.6 mEQ/L (21-27); ABG Oxygen Saturation 93 % (95-98); ABG PCO2 51 mmHg (35-45); ABG PO2 67 mmHg (85-104); ABG TCO2 33.2 mEq/L (20-26)
[2016-12-06 23:05] LABS: Blood Gas FiO2 80 %
[2016-12-06] MEDS ORDERED: Naloxone 0.4 MG/ML INJ IVP PRN (23:58)
[2016-12-07] MEDS ORDERED: ALPRAZolam 0.25 MG TABLET PO PRN
[2016-12-07] MEDS ORDERED: hydrOXYzine pamoate 25 MG CAPSULE PO PRN
[2016-12-07] MEDS ORDERED: Albuterol 2.5 MG/3 ML NEBULIZER IH PRN (00:04)
--- NOTE | 2016-12-07 00:04 | Internal Med History&Physical ---
Date of Encounter: 12/07/16 Time of Encounter: 00:04 Assessment and Plan (1) Acute respiratory failure with hypoxia Current visit: Yes Status: Acute Patient with chronic resp failure at baseline from COPD comes in with rapidly worsening symptoms with associated increased oxygen requirement, her home O2 reading was in the 80s on 6L/min of oxygen, she required NIMV upon presentation here, currently doing ok on 10L/min of oxygen, etiology of her hypoxia is multifactorial; pneumonia vs heart failure vs worsening COPD in the setting of pneumonia, we will continue resp support, treat underlying condition (2) Pneumonia Current visit: Yes Status: Acute Patient comes in with concerning symptoms for respiratory origin and found to have infiltrate on imaging concerning for pneumonia, we will check urine strep and legionella antigens, sputum Gram stain and c/s and empiric Abx pending microbiology results Qualifiers: Pneumonia type: due to unspecified organism Laterality: unspecified laterality Lung location: lower lobe of lung Qualified Code(s): J18.1 - Lobar pneumonia, unspecified organism (3) Acute exacerbation of chronic obstructive airways disease Current visit: Yes Status: Acute In an exacerbation Will do duo nebs q4h scheduled and q2h prn Will hold off on steroids, will do supplemental oxygen with continuous pulse ox monitoring (4) Type 2 diabetes mellitus Current visit: Yes Status: Chronic Hx of type 2 DM on metformin at home, we will continue that with low dose SSI for coverage Qualifiers: Diabetes mellitus complication status: with hyperglycemia Diabetes mellitus usp insulin use: without technician terminal and repeater use Qualified Code(s): E11.65 - Type 2 diabetes mellitus with hyperglycemia (5) Hypertension Current visit: Yes Status: Chronic On metoprolol and cardizem at home, we will continue these with BP monitoring Qualifiers: Hypertension type: essential hypertension Qualified Code(s): I10 - Essential (primary) hypertension (6) Anxiety Current visit: Yes Status: Chronic We will continue her xanax Internal Medicine - H&P: HPI Chief complaint: shortness of breath Admitted From: Emergency Dept Plans for Post Hospital Care: Home History of present illness: Ms. Pollack is a 70 year old female with a history of chronic resp failure from COPD on 4-6L/min of home oxygen who was brought in for worsening shortness of breath. She was reportedly in her usual state of health until 2 days prior to presentation when she began to experience worsening dyspnea with dyspnea on exertion. She has also been having productive cough of thick yellow/brown sputum , also increasing in amount. This progressed to the point of low oxygen readings in the 80's whilst still on her baseline home O2. Family tried increasing her oxygen flow at home with minimal improvement so they switched to her home BiPAP device but they only got her to early 90's so they called EMS. Per EMS chart she had informed them that her home nurse was concerned about pneumonia, her O2 saturation had been in the 80's most of the day. In the ER her O2 saturation was in the late 70's so she was started on NIMV. She denies sick contacts, fever, chills, but had one episode of nausea and vomiting on Sunday morning. Past Med Surg Social Fam HX - Past Medical History Medical history: CHF, COPD, DVT, diabetes, hyperlipidemia, hypertension Psychiatric history: anxiety, depression - Past Surgical History Surgical History: appendectomy, - Social History Smoking Status: Former smoker Smokeless Tobacco Status: No Alcohol use: none Drug use: none - Family History Mother Family Member Ethnicity: Non- Living Status: Hx Family Cardiac Disorders: Yes Hx Family Respiratory Disorders: Yes Hx Family Cancer: Yes Hx Family GI Disorders: No Hx Family Endocrine Disorder: No Hx Family Neuromuscular Disorders: No Hx Family Neurologic Disorders: No Hx Family HEENT Disorders: No Hx Family Autoimmune Disorders: No Father Living Status: Hx Family Cancer: Yes Internal Medicine - H&P: Meds Albuterol Sulfate [Albuterol Inhaler] 2 puff IH Q4H PRN 08/23/16 [History] Amitriptyline [Elavil] 10 mg PO HS 08/23/16 [History] Ascorbate Calcium [Vitamin C] 500 mg PO DAILY 08/23/16 [History] Aspirin 81 mg PO DAILY 08/23/16 [History] Fish Oil/Dha/Epa [Fish Oil 1,200 mg Fish Oil] 1 cap PO DAILY 08/23/16 [History] Metoprolol [Lopressor] 100 mg PO BID 08/23/16 [History] Tiotropium [place] [Spiriva] 18 mcg IH DAILY 08/23/16 [History] Vitamin B Complex 1 cap PO DAILY 08/23/16 [History] hydrOXYzine HCl [Hydroxyzine HCl] 25 mg PO DAILY PRN 08/23/16 [History] Nystatin POWDER [Nystop] 1 appl TP BID #1 bottle 08/27/16 [Rx] metFORMIN [Glucophage] 500 mg PO BID #60 tablet 08/27/16 [Rx] Oxygen 2 l NS CONT 09/21/16 [History] Diltiazem CD (24hr) [Cardizem CD] 180 mg PO DAILY #30 cap.er.24h 10/14/16 [Rx] Furosemide [Lasix] 60 mg PO BID #60 tablet 10/14/16 [Rx] ALPRAZolam [Xanax 0.25 MG Tablet] 0.25 mg PO HS PRN 12/06/16 [History] Biotin 1 mg PO DAILY 12/06/16 [History] Budesonide/Formoterol 160/4.5 [Symbicort 160/4.5] 2 puff IH DAILY 12/06/16 [ History] Calcium Carbonate [Calcium] 500 mg PO DAILY 12/06/16 [History] Cholecalciferol (D-3) [Vitamin D] 1,000 unit PO DAILY 12/06/16 [History] Docusate [Colace] 100 mg PO DAILY PRN 12/06/16 [History] Ipratropium/Albuterol Neb [Duoneb] 3 ml IH QIDR 12/06/16 [History] Lovastatin 40 mg PO HS 12/06/16 [History] Multivit-Min/Iron/Folic/Lutein [Centrum Silver Women Tablet] 1 each PO DAILY 05/15 [History] Multivits Min/Iron/FA/Herb#186 [Hair, Skin & Nails Caplet] 1 each PO DAILY 12/06 [History] Vitamin E Acid Succinate [Vitamin E] 400 units PO DAILY 12/06/16 [History] Allergies No Known Allergies Allergy (Verified 08/23/16 19:46) All Systems PM: A 10-system review of systems was performed and is negative for pertinent findings except as documented above in the HPI. - Constitutional Vitals: Temp Pulse Resp BP Pulse Ox 103.0 F H 114 33 170/62 91 12/06/16 22:06 12/06/16 23:33 12/06/16 23:33 12/06/16 23:33 12/06/16 23:33 PHYSICAL EXAMINATION: GENERAL: Adult female, sitting up in bed with mild resp distress on 10L/min of oxygen, Alert, HEENT: NC/AT, EOMI, PERRLA, anicteric sclera, normal conjunctiva, supple, clear nares, moist mucous membranes, clear oropharynx, central uvula RESP: lungs are clear to auscultation bilaterally but with diminished breath sounds, no crackles or wheeze CARDIO: Normal hearts sounds; S1 and 2, RRR with occasional ectopic beats, with no murmurs, no JVD, no ankle edema GI: obese abdomen, soft, full, no tenderness, no organomegaly felt, normal bowel sounds heard MUSCULOSKELETAL: grossly normal movements bilaterally, no deformities noted, no calf tenderness NEUROLOGIC: CN 2-12 intact grossly. No motor/sensory deficit appreciated, PSYCHIATRY: AAO x 3. Mood is fair, exhibits appropriate judgement SKIN: bilateral upper extremity keratotic skin lesion noted with a few areas of ecchymotic patches Internal Med - H&P Results - Labs CBC & Chem 7: 12/07/16 01:46 12/07/16 01:46 - Diagnostic Studies Chest x-ray Status: image reviewed by me
[2016-12-07] MEDS ORDERED: Dextrose Gel 15 GM PO PRN ×2 (00:06)
[2016-12-07] MEDS ORDERED: D5% in Water 1,000 ML IVC PRN (00:06)
[2016-12-07] MEDS ORDERED: *HR* Dextrose 50 % in Water (Syg) 50 ML SYRINGE IVP PRN (00:06)
[2016-12-07 04:55] LABS: Basophils % 0.2 %; Eosinophils % 0.1 %; Hemoglobin 10.9 g/dL (11.5-15.4); Immature Granulocytes % 0.5 % (0-4); Lymphocytes # 0.4 K/mcL (0.6-4.6); Lymphocytes % 3.2 %; Mean Corpuscular HGB Conc 31.1 g/dL (31.6-35.5); Mean Corpuscular Hemoglobin 29.4 pg (28.0-33.3); Mean Corpuscular Volume 94.3 fL (83.0-100.0); Mean Platelet Volume 11.3 fL (9.4-12.4); Monocytes # 0.4 K/mcL (0.0-1.3); Monocytes % 3.9 %; Neutrophils # 10.3 K/mcL (1.6-8.9); Platelet Count 161 K/mcL (140-400); Red Blood Count 3.71 M/mcL (3.82-4.97); Red Cell Distribution Width 15.1 % (11.5-14.5); Segmented Neutrophils % 92.1 %
[2016-12-07 05:29] LABS: BUN/Creatinine Ratio 22 (6-26); Blood Urea Nitrogen 24 mg/dL (7-20); Calcium 8.8 mg/dL (8.6-10.8); Carbon Dioxide 25 mEq/L (19-29); Chloride 98 mEq/L (98-109); Glucose 260 mg/dL (70-99); Magnesium 1.6 mg/dL (1.6-2.6); Osmolality,Calculated 299 (280-300); Phosphorous 3.2 mg/dL (2.3-4.7); Potassium 3.8 mEq/L (3.5-4.5); Sodium 138 mEq/L (136-145); eGFR For African Americans > 60 (> 60); eGFR For Non-African Americans 50 (> 60)
[2016-12-07] MEDS: Metoprolol 100 MG TABLET PO SCH ×3 (05:29→21:37)
[2016-12-07] MEDS: Insulin LISPRO 300 UNITS/3 ML VIAL SQ SCH ×6 (05:30→21:38)
[2016-12-07 05:33] LABS: Platelet Estimate Normal (Normal)
[2016-12-07] MEDS: Ipratropium Neb 0.5 MG NEBULIZER IH SCH ×3 (05:36→11:00)
[2016-12-07] MEDS: Albuterol 2.5 MG/3 ML NEBULIZER IH SCH ×3 (05:37→11:00)
--- NOTE | 2016-12-07 08:53 | Electrocardiograph Report ---
[address] [address] Test Date: 2016-12-06 Pat Name: Garima Pollack Department: 104 Room: 2N0 Gender: F [employer]: [facility] : 1945 Requested By: Jhonatan Negrete Order Number: [id number] Reading MD: Aury West Measurements Intervals [place] Rate: 155 P: 28 IA: 96 QRS: 88 QRSD: 96 T: 3 QT: 258 QTc: 345 Interpretive Statements SINUS TACHYCARDIA WITH SHORT IA INTERVAL, POSSIBLE ATRIAL FLUTTER MODERATE ST DEPRESSION Baseline artifact Electronically Signed On 12-07-2016 8:52:05 EDT by Aury West
[2016-12-07] MEDS ORDERED: (Biotin [Biotin] 1 MG) PO SCH (09:00)
[2016-12-07] MEDS ORDERED: (Fish Oil/Dha/Epa [Fish Oil 1,200 Mg Fish Oil] 1 CAP) PO SCH (09:00)
[2016-12-07] MEDS ORDERED: NON-FORMULARY MEDICATION 1 EACH EACH (Multivits Min/Iron/Fa/Herb#186 [Hair, Skin And Nails PO SCH (09:00)
[2016-12-07] MEDS ORDERED: *HR* Metformin 500 MG TABLET PO SCH (09:00)
[2016-12-07] MEDS: Furosemide 20 MG TABLET PO SCH ×2 (09:09→21:37)
[2016-12-07] MEDS: Cholecalciferol (D-3) 1,000 UNIT TABLET PO SCH (09:09)
[2016-12-07] MEDS: Ascorbic Acid 500 MG TABLET PO SCH (09:09)
[2016-12-07] MEDS: Vitamin B Complex/Vit C/Vit E 1 EACH TABLET PO SCH (09:09)
[2016-12-07] MEDS: Multivit/Ca/Min/Fe/FA 1 TAB TABLET PO SCH (09:09)
[2016-12-07] MEDS: Aspirin 81 MG TAB.CHEW PO SCH (09:10)
[2016-12-07] MEDS: Levofloxacin 750 MG/150 ML 750 MG/150 ML BAG IVPB SCH (09:10)
[2016-12-07] MEDS: *HR* Heparin 5,000 UNIT/ML VIAL SQ SCH ×3 (09:11→21:36)
[2016-12-07] MEDS: Diltiazem CD (24hr) 180 MG CAPSULE PO SCH (09:13)
[2016-12-07 11:22] LABS: Bilirubin,Urine Negative (Negative); Blood,Urine Trace (Negative); Clarity,Urine Turbid (Clear); Color,Urine Yellow (Yellow); Glucose,Urine (UA) 100 mg/dL (Normal); Ketones,Urine Negative (Negative); Leukocyte Esterase,Urine Large (Negative); Nitrite,Urine Positive (Negative); PH,Urine 6.5 pH Units (5.0-8.0); Protein,Urine 30 mg/dL (Neg-Trace); Specific Gravity,Urine 1.018 (1.010-1.025); Urobilinogen,Urine Normal (Normal)
[2016-12-07 11:24] LABS: Bacteria,Urine Few per hpf (None-Few); Hyaline Casts,Urine None Seen per lpf (None-Few); Squamous Epithelial Cell,Urine Moderate per lpf (None-Few); WBC,Urine TNTC per hpf (0-3)
[2016-12-07] MEDS: Nystatin POWDER 30 GM BOTTLE TP SCH ×2 (12:07→21:39)
[2016-12-07] MEDS: Ipratropium/Albuterol Neb 3 ML IH SCH ×2 (16:26→21:14)
--- NOTE | 2016-12-07 18:34 | Event Note ---
Date of Encounter: 12/07/16 Time of Encounter: 18:32 Pt admitted earlier today for pneumonia and hypoxic respiratory failure. Oxygen has been weaned some through the day. Rales on exam. Some edema of feet. Will give diuretic. Otherwise no change to POC.
[2016-12-07] MEDS ORDERED: Acetaminophen 325 MG TABLET PO PRN (23:31)
[2016-12-08] MEDS: Ipratropium/Albuterol Neb 3 ML IH SCH ×5 (00:23→16:12)
[2016-12-08] MEDS: *HR* Heparin 5,000 UNIT/ML VIAL SQ SCH (05:10)
[2016-12-08 07:18] VITALS: BP 155/77
[2016-12-08] MEDS: Cholecalciferol (D-3) 1,000 UNIT TABLET PO SCH (08:58)
[2016-12-08] MEDS: Vitamin B Complex/Vit C/Vit E 1 EACH TABLET PO SCH (08:58)
[2016-12-08] MEDS: Metoprolol 100 MG TABLET PO SCH (08:59)
[2016-12-08] MEDS: Diltiazem CD (24hr) 180 MG CAPSULE PO SCH (08:59)
[2016-12-08] MEDS: Multivit/Ca/Min/Fe/FA 1 TAB TABLET PO SCH (08:59)
[2016-12-08] MEDS: Levofloxacin 750 MG/150 ML 750 MG/150 ML BAG IVPB SCH (08:59)
[2016-12-08] MEDS: Furosemide 20 MG TABLET PO SCH (08:59)
[2016-12-08] MEDS: Aspirin 81 MG TAB.CHEW PO SCH (08:59)
[2016-12-08] MEDS: Nystatin POWDER 30 GM BOTTLE TP SCH (08:59)
[2016-12-08] MEDS: Ascorbic Acid 500 MG TABLET PO SCH (08:59)
[2016-12-08] MEDS: Insulin LISPRO 300 UNITS/3 ML VIAL SQ SCH ×2 (09:00→13:26)
[2016-12-08] MEDS ORDERED: Furosemide 40 MG/4 ML VIAL IVP ONE (12:31)
--- NOTE | 2016-12-08 13:41 | Discharge Summary ---
Date of Encounter: 12/08/16 Time of Encounter: 11:45 - Discharge Diagnosis (1) Acute on chronic respiratory failure Priority: Primary Status: Acute Qualifiers: Respiratory failure complication: hypoxia Qualified Code(s): J96.21 - Acute and chronic respiratory failure with hypoxia (2) Acute exacerbation of chronic obstructive airways disease Priority: Primary Status: Acute (3) Acute on chronic congestive heart failure Priority: Secondary Status: Acute Qualifiers: Congestive heart failure type: diastolic Qualified Code(s): I50.33 - Acute on chronic diastolic (congestive) heart failure (4) Pneumonia Priority: Primary Status: Acute Qualifiers: Pneumonia type: due to unspecified organism Laterality: bilateral Lung location: lower lobe of lung Qualified Code(s): J18.9 - Pneumonia, unspecified organism (5) Type 2 diabetes mellitus Priority: Secondary Status: Chronic Qualifiers: Diabetes mellitus complication status: with hyperglycemia 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 use: without [place] use Qualified Code(s): E11.65 - Type 2 diabetes mellitus with hyperglycemia (6) Hypertension Priority: Secondary Status: Chronic Qualifiers: Hypertension type: essential hypertension Qualified Code(s): I10 - Essential (primary) hypertension (7) Obesity hypoventilation syndrome Priority: Secondary Status: Chronic (8) Morbid obesity with BMI of 45.0-49.9, adult Priority: Secondary Status: Chronic - Discharge Medications Prescriptions: Levofloxacin [Levaquin] 750 mg PO DAILY #5 tablet Home Medications: Albuterol Sulfate [Albuterol Inhaler] 2 puff IH Q4H PRN 08/23/16 [History] Amitriptyline [Elavil] 10 mg PO HS 08/23/16 [History] Ascorbate Calcium [Vitamin C] 500 mg PO DAILY 08/23/16 [History] Aspirin 81 mg PO DAILY 08/23/16 [History] Fish Oil/Dha/Epa [Fish Oil 1,200 mg Fish Oil] 1 cap PO DAILY 08/23/16 [History] Metoprolol [Lopressor] 100 mg PO BID 08/23/16 [History] Tiotropium [place] [Spiriva] 18 mcg IH DAILY 08/23/16 [History] Vitamin B Complex 1 cap PO DAILY 08/23/16 [History] hydrOXYzine HCl [Hydroxyzine HCl] 25 mg PO DAILY PRN 08/23/16 [History] Nystatin POWDER [Nystop] 1 appl TP BID #1 bottle 08/27/16 [Rx] metFORMIN [Glucophage] 500 mg PO BID #60 tablet 08/27/16 [Rx] Oxygen 2 l NS CONT 09/21/16 [History] Diltiazem CD (24hr) [Cardizem CD] 180 mg PO DAILY #30 cap.er.24h 10/14/16 [Rx] Furosemide [Lasix] 60 mg PO BID #60 tablet 10/14/16 [Rx] ALPRAZolam [Xanax 0.25 MG Tablet] 0.25 mg PO HS PRN 12/06/16 [History] Biotin 1 mg PO DAILY 12/06/16 [History] Budesonide/Formoterol 160/4.5 [Symbicort 160/4.5] 2 puff IH DAILY 12/06/16 [ History] Calcium Carbonate [Calcium] 500 mg PO DAILY 12/06/16 [History] Cholecalciferol (D-3) [Vitamin D] 1,000 unit PO DAILY 12/06/16 [History] Docusate [Colace] 100 mg PO DAILY PRN 12/06/16 [History] Ipratropium/Albuterol Neb [Duoneb] 3 ml IH QIDR 12/06/16 [History] Lovastatin 40 mg PO HS 12/06/16 [History] Multivit-Min/Iron/Folic/Lutein [Centrum Silver Women Tablet] 1 each PO DAILY 05/15 [History] Multivits Min/Iron/FA/Herb#186 [Hair, Skin and Nails Caplet] 1 each PO DAILY 05/15 [History] Vitamin E Acid Succinate [Vitamin E] 400 units PO DAILY 12/06/16 [History] Levofloxacin [Levaquin] 750 mg PO DAILY #5 tablet 12/08/16 [Rx] Allergies/Adverse Reactions: Allergies No Known Allergies Allergy (Verified 08/23/16 19:46) Date of admission: 12/07/16 00:36 Primary care physician: Eduardo Hernandez Jr, MD Discharging clinician: Darius Velazquez Anticipated date of discharge: 12/08/16 - Patient Status Disposition: Home Health Service Condition: Good Functional capacity at discharge: uses cane/walker Overall status at discharge: patient is progressing back to baseline - Discharge Instructions Instructions: Heart Failure (DC), Acute Respiratory Distress Syndrome (DC), Urinary Tract Infection in Women (DC), Chronic Obstructive Pulmonary Disease (DC ), Sepsis (DC), Pneumonia (DC) - Diet and Activity Activity: increase activity as tolerated Diet: advance to your usual diet Hospital course: Ms. Pollack is a 70 year old female with a history of chronic hypoxic resp failure on home oxygen brought to ED with worsening dyspnea. She was having productive cough with purulent sputum and hypoxemia. She was admitted with pneumonia and COPD exacerbation. Ms. Pollack was admitted to [facility]. She initially was on high flow oxygen at 10liters. She was started on IV abx and aerosols. No steroids given while on inpatient floor. In the ED she was on NIMV but did not need upon arrival to floor. She did not have any further acute issues. Her swelling was not increased and she was maintained on her home dose of Lasix. She had gradual improvement in her symptoms and was able to wean oxygen back to home levels. On 12/08 she was alert and comfortable. She was afebrile with stable vitals. She was felt ready for d/c home on PO abx. - Time Spent with Patient Total time spent providing and/or coordinating discharge services: 41min - Constitutional Vitals: Temp Pulse Resp BP Pulse Ox 98.2 F 74 16 155/77 92 12/08/16 07:10 12/08/16 07:10 12/08/16 12:07 12/08/16 07:10 12/08/16 12:07 General appearance: Present: A&O X 3, pleasant, answers questions appropriately - Head Head exam: Present: normocephalic - Eye Eye exam: Present: conjuntiva pink - ENT ENT exam: Present: mucous membranes moist - Respiratory Respiratory exam: Present: decreased breath sounds, rales - Cardiovascular Cardiovascular exam: Present: RRR. Absent: tachycardia - GI/Abdominal GI/Abdominal exam: Present: soft. Absent: tenderness - Extremities Exam Extremities exam: Present: pedal edema, warm. Absent: tenderness - Neurological Exam Neurological exam: Present: alert, oriented X3, no focal deficits - Psychiatric Psychiatric exam: Present: normal affect, normal mood - Skin Skin exam: Present: warm. Absent: rash
--- NOTE | 2016-12-08 14:02 | Physician Discharge Referral ---
Home Health/Hosp Referral Info Transfer to: Home Health Attending Provider: Darius Velazquez DO Provider in Charge Post Discharge: PCP - Diagnosis (1) Acute on chronic respiratory failure Priority: Primary Status: Acute (2) Acute exacerbation of chronic obstructive airways disease Priority: Primary Status: Acute (3) Acute on chronic congestive heart failure Priority: Secondary Status: Acute (4) Pneumonia Priority: Primary Status: Acute (5) Type 2 diabetes mellitus Priority: Secondary Status: Chronic (6) Hypertension Priority: Secondary Status: Chronic (7) Obesity hypoventilation syndrome Priority: Secondary Status: Chronic (8) Morbid obesity with BMI of 45.0-49.9, adult Priority: Secondary Status: Chronic - Respiratory Orders Oxygen / L per min (Return to home amounts) Smoking Cessation: Smoking cessation has been advised. For more information, call the [employer] Quit Line at 2-487-EXZJ-NOW. - Diet/Nutrition Diet/Nutrition Orders: Cardiac, No Concentrated Sweets - Activity Activity Orders: Ambulate - Services Needed Following services are medically necessary services: Nursing, Home Health Aide - Transfer Medications Prescriptions: Levofloxacin [Levaquin] 750 mg PO DAILY #5 tablet Home Medications: Albuterol Sulfate [Albuterol Inhaler] 2 puff IH Q4H PRN 08/23/16 [History] Amitriptyline [Elavil] 10 mg PO HS 08/23/16 [History] Ascorbate Calcium [Vitamin C] 500 mg PO DAILY 08/23/16 [History] Aspirin 81 mg PO DAILY 08/23/16 [History] Fish Oil/Dha/Epa [Fish Oil 1,200 mg Fish Oil] 1 cap PO DAILY 08/23/16 [History] Metoprolol [Lopressor] 100 mg PO BID 08/23/16 [History] Tiotropium [place] [Spiriva] 18 mcg IH DAILY 08/23/16 [History] Vitamin B Complex 1 cap PO DAILY 08/23/16 [History] hydrOXYzine HCl [Hydroxyzine HCl] 25 mg PO DAILY PRN 08/23/16 [History] Nystatin POWDER [Nystop] 1 appl TP BID #1 bottle 08/27/16 [Rx] metFORMIN [Glucophage] 500 mg PO BID #60 tablet 08/27/16 [Rx] Oxygen 2 l NS CONT 09/21/16 [History] Diltiazem CD (24hr) [Cardizem CD] 180 mg PO DAILY #30 cap.er.24h 10/14/16 [Rx] Furosemide [Lasix] 60 mg PO BID #60 tablet 10/14/16 [Rx] ALPRAZolam [Xanax 0.25 MG Tablet] 0.25 mg PO HS PRN 12/06/16 [History] Biotin 1 mg PO DAILY 12/06/16 [History] Budesonide/Formoterol 160/4.5 [Symbicort 160/4.5] 2 puff IH DAILY 12/06/16 [ History] Calcium Carbonate [Calcium] 500 mg PO DAILY 12/06/16 [History] Cholecalciferol (D-3) [Vitamin D] 1,000 unit PO DAILY 12/06/16 [History] Docusate [Colace] 100 mg PO DAILY PRN 12/06/16 [History] Ipratropium/Albuterol Neb [Duoneb] 3 ml IH QIDR 12/06/16 [History] Lovastatin 40 mg PO HS 12/06/16 [History] Multivit-Min/Iron/Folic/Lutein [Centrum Silver Women Tablet] 1 each PO DAILY 05/15 [History] Multivits Min/Iron/FA/Herb#186 [Hair, Skin and Nails Caplet] 1 each PO DAILY 05/15 [History] Vitamin E Acid Succinate [Vitamin E] 400 units PO DAILY 12/06/16 [History] Levofloxacin [Levaquin] 750 mg PO DAILY #5 tablet 12/08/16 [Rx] Allergies/Adverse Reactions: Allergies No Known Allergies Allergy (Verified 08/23/16 19:46) Certification: Further, I certify that my clinical findings support that this patient is homebound (i.e. absences from home require considerable and taxing effort and are for medical reasons or shinto services or infrequently or short duration when for other reasons) because: Homebound Reason: Patient requires assistance of a person or device to safely leave home, Leaving home requires considerable and taxing effort due to condition, Severity of cardiac or pulmonary status limits activity tolerance Attestation: My signature below is to certify that this patient is under my care and that I, or nurse practitioner, or a physician's marketing operations assistant working with me, has a face-to -face encounter with this patient.
== END 2016-12-08 16:35 | disposition home health service (06) | DRG 871 ==
LOC: EMEROO 22:05 → 2NENU 22:05
PROVIDERS: ADMIT Internal Medicine; ATTEND Internal Medicine

== ENCOUNTER 2016-12-30 23:50 | Inpatient (IN) ==
[2016-12-30] MEDS ORDERED: Ipratropium/Albuterol Neb 3 ML ONE (23:52)
[2016-12-30] MEDS ORDERED: methylPREDNISolone 125 MG/2 ML VIAL IVP ONE (23:53)
[2016-12-30] MEDS ORDERED: Ipratropium/Albuterol Neb 3 ML IH ONE (23:53)
--- NOTE | 2016-12-31 00:03 | Emergency Department Note ---
Disposition Clinical Impression: Hospital-acquired pneumonia, Elevated troponin Sepsis Qualifiers: Sepsis type: sepsis due to unspecified organism Qualified Code(s): A41.9 - Sepsis, unspecified organism Acute and chronic respiratory failure Qualifiers: Respiratory failure complication: hypoxia and hypercapnia Qualified Code(s): J96.21 - Acute and chronic respiratory failure with hypoxia; J96.22 - Acute and chronic respiratory failure with hypercapnia Acute exacerbation of congestive heart failure Qualifiers: Congestive heart failure type: unspecified congestive heart failure type Qualified Code(s): I50.9 - Heart failure, unspecified Disposition: Admitted As Inpatient Condition: Critical Referrals: Eduardo Hernandez Jr, MD [Primary Care Provider] - Forms: ED Satisfaction Letter SOB HPI - General Chief Complaint: ED Shortness of Breath/Dyspnea Stated Complaint: shortness of breath Time Seen by Provider: 12/30/16 23:53 Source: EMS Limitations: no limitations Nursing Notes Reviewed: Yes Vital Signs Reviewed: Yes - History of Present Illness Ms. Pollack, 71-year-old female, arrives from home by EMS with chief complaint of dyspnea. Onset 2 weeks ago and acutely worse 2 days ago. History COPD, diastolic CHF. Baseline O2 use is 3 L continuous during the day, 4 L at night with BiPAP. Patient notes change in character of cough which is productive. Also has right lower chest pains, worse with cough and inspiration. She does not note any unusual swelling. PMH: Congestive heart failure, type 2 diabetes (oral antihyperglycemic), DVT, PE , CK stage III, obesity, obesity hypoventilation syndrome, COPD, history recurrent pneumonia, A. fib with RVR (rate controlled on Cardizem, metoprolol) ROS: Positive: Dyspnea, new type of cough, chest pains Negative: Fever, chills, nausea, vomiting, palpitations, dizziness, lightheadedness, abdominal pains, changes in bowel or bladder - Related Data Home Medications Medication Instructions Recorded Confirmed Albuterol Sulfate [Albuterol 2 puff IH Q4H PRN 08/23/16 12/06/16 Inhaler] Amitriptyline [Elavil] 10 mg PO HS 08/23/16 12/06/16 Ascorbate Calcium [Vitamin C] 500 mg PO DAILY 08/23/16 12/06/16 Aspirin 81 mg PO DAILY 08/23/16 12/06/16 Fish Oil/Dha/Epa [Fish Oil 1,200 1 cap PO DAILY 08/23/16 12/06/16 mg Fish Oil] Metoprolol [Lopressor] 100 mg PO BID 08/23/16 12/06/16 Tiotropium [place] [Spiriva] 18 mcg IH DAILY 08/23/16 12/06/16 Vitamin B Complex 1 cap PO DAILY 08/23/16 12/06/16 hydrOXYzine HCl [Hydroxyzine HCl] 25 mg PO DAILY PRN 08/23/16 12/06/16 Oxygen 2 l NS CONT 09/21/16 12/06/16 ALPRAZolam [Xanax 0.25 MG Tablet] 0.25 mg PO HS PRN 12/06/16 12/06/16 Biotin 1 mg PO DAILY 12/06/16 12/06/16 Budesonide/Formoterol 160/4.5 2 puff IH DAILY 12/06/16 12/06/16 [Symbicort 160/4.5] Calcium Carbonate [Calcium] 500 mg PO DAILY 12/06/16 12/06/16 Cholecalciferol (D-3) [Vitamin D] 1,000 unit PO DAILY 12/06/16 12/06/16 Docusate [Colace] 100 mg PO DAILY PRN 12/06/16 12/06/16 Ipratropium/Albuterol Neb [Duoneb] 3 ml IH QIDR 12/06/16 12/06/16 Lovastatin 40 mg PO HS 12/06/16 12/06/16 Multivit-Min/Iron/Folic/Lutein 1 each PO DAILY 12/06/16 12/06/16 [Centrum Silver Women Tablet] Multivits Min/Iron/FA/Herb#186 1 each PO DAILY 12/06/16 12/06/16 [Hair, Skin and Nails Caplet] Vitamin E Acid Succinate [Vitamin 400 units PO DAILY 12/06/16 12/06/16 E] Previous Rx's Medication Instructions Recorded Nystatin POWDER [Nystop] 1 appl TP BID #1 bottle 08/27/16 metFORMIN [Glucophage] 500 mg PO BID #60 tablet 08/27/16 Diltiazem CD (24hr) [Cardizem CD] 180 mg PO DAILY #30 cap.er.24h 10/14/16 Furosemide [Lasix] 60 mg PO BID #60 tablet 10/14/16 Levofloxacin [Levaquin] 750 mg PO DAILY #5 tablet 12/08/16 Allergies Allergy/AdvReac Type Severity Reaction Status Date / Time No Known Allergies Allergy Verified 08/23/16 19:46 All systems ED: reviewed and negative except as stated. Past Medical History - Past Medical History Medical history: Reports: CHF, COPD, DVT, diabetes, hyperlipidemia, hypertension Surgical history: Reports: appendectomy, Psychiatric history: Reports: anxiety, depression - Social History Smoking Status: Former smoker Smokeless Tobacco Status: No Alcohol use: Reports: none Drug use: Reports: none Physical Exam Vital Signs Reviewed General: Patient is alert, oriented, and in acute respiratory distress - hypoxic on monitor but not dyspnic, confused, or using accessory muscles. HEENT: No facial asymmetry. Head is normocephalic and atraumatic. PERRLA. Trachea midline. Cardiovascular: Heart regular rate and rhythm without clicks, rubs, gallops, or murmurs. No JVD. PMI nondisplaced. Trace pedal edema. Respiratory: Symmetric chest rise with poor respiratory effort. Prolonged expiratory phase. Bilateral breath sounds are diminished with diffuse crackles and wheezing. Abdomen: Obese. Bowel sounds present normoactive x-4 quadrants. Abdomen is soft, nondistended, and nontender. Psych: Patient's affect is appropriate for situation. - General Limitations: no limitations General appearance: alert Course Course Narrative: During my evaluation, patient was on room air. She descended into the 70s was asymptomatic. Respiratory was bedside; patient placed on BiPap with nebs. Her saturation improved to 89%. Daughter at bedside says basline is 88-91%. At home, patient was saturating 85% on BiPap. Patient does meet criteria for septic shock however she has history of congestive heart failure and would be fluid overloaded were she to receive 30 mg /kg. Additionally, she is not hypotensive. Will begin empiric abx of vancomycin, Zosyn, Levaquin. Patient has elevated BNP. Chest x-ray is concerning for right lower lobe pneumonia-given her recent admission, this would be hospital-acquired pneumonia. Patient also has mild elevation in troponin-likely demand ischemia given her hypoxia and acute on chronic respiratory failure. I discussed these findings with the patient and her daughter at bedside. They agree for admission as well as the current plan. Spoke with the admitting hospitalist, Dr. Romero, who agrees to accept the patient. Impression: Sepsis of pulmonary [id number] pneumonia. Acute on chronic respiratory failure, acute exacerbation of congestive heart failure, elevated troponin-likely demand ischemia. Vital Signs Temperature 99.6 F 12/30/16 23:51 Pulse Rate 93 12/30/16 23:51 Respiratory Rate 20 12/30/16 23:51 Blood Pressure 127/59 12/30/16 23:51 O2 Sat by Pulse Oximetry 70 12/30/16 23:51 Temperature 99.6 F 12/30/16 23:51 Pulse Rate 89 12/31/16 01:39 Respiratory Rate 20 12/31/16 01:39 Blood Pressure 127/59 12/31/16 01:39 O2 Sat by Pulse Oximetry 91 12/31/16 01:39 Oxygen Delivery Oxygen Delivery Bipap Shortness of Breath/Dyspnea - Lab Data Result diagrams: 12/31/16 00:19 12/31/16 00:19 Lab Results 12/31/16 12/31/16 12/31/16 Range/Units 00:19 00:19 00:19 WBC 13.8 H (4.3-11.1) K/mcL RBC 4.16 (3.82-4.97) M/mcL Hgb 11.9 (11.5-15.4) g/dL Hct 37.6 (35.3-44.9) % MCV 90.4 (83.0-100.0) fL MCH 28.6 (28.0-33.3) pg MCHC 31.6 (31.6-35.5) g/dL RDW 14.9 H (11.5-14.5) % Plt Count 182 (140-400) K/mcL MPV 9.9 (9.4-12.4) fL Seg Neutrophils % 56.0 % Band Neutrophils % 22.0 H (0-4) % Lymphocytes % 10.0 % Monocytes % 6.0 % Metamyelocytes % 6.0 H (0) % Neutrophils # 10.8 H (1.6-8.9) K/mcL Lymphocytes # 1.4 (0.6-4.6) K/mcL Monocytes # 0.8 (0.0-1.3) K/mcL Reactive Lymphocytes Present A (Not Present) Platelet Estimate Normal (Normal) Large Platelets Present A (Not Present) Immature Plt Fraction 4.3 (1.1-6.1) % Sodium 135 L (136-145) mEq/L Potassium 3.7 (3.5-4.5) mEq/L Chloride 94 L (98-109) mEq/L Carbon Dioxide 26 (19-29) mEq/L BUN 35 H (7-20) mg/dL Creatinine 1.61 H (0.57-1.11) mg/dL Est GFR ( Amer) 38 L (> 60) Est GFR (Non-Af Amer) 32 L (> 60) BUN/Creatinine Ratio 22 (6-26) Glucose 171 H (70-99) mg/dL Calculated Osmolality 292 (280-300) Lactic Acid 2.4 H (0.5-2.2) mmol/L Calcium 9.6 (8.6-10.8) mg/dL Troponin I (0-0.03) ng/mL B-Natriuretic Peptide (0-100) pg/mL 12/31/16 12/31/16 Range/Units 00:19 00:19 WBC (4.3-11.1) K/mcL RBC (3.82-4.97) M/mcL Hgb (11.5-15.4) g/dL Hct (35.3-44.9) % MCV (83.0-100.0) fL MCH (28.0-33.3) pg MCHC (31.6-35.5) g/dL RDW (11.5-14.5) % Plt Count (140-400) K/mcL MPV (9.4-12.4) fL Seg Neutrophils % % Band Neutrophils % (0-4) % Lymphocytes % % Monocytes % % Metamyelocytes % (0) % Neutrophils # (1.6-8.9) K/mcL Lymphocytes # (0.6-4.6) K/mcL Monocytes # (0.0-1.3) K/mcL Reactive Lymphocytes (Not Present) Platelet Estimate (Normal) Large Platelets (Not Present) Immature Plt Fraction (1.1-6.1) % Sodium (136-145) mEq/L Potassium (3.5-4.5) mEq/L Chloride (98-109) mEq/L Carbon Dioxide (19-29) mEq/L BUN (7-20) mg/dL Creatinine (0.57-1.11) mg/dL Est GFR ( Amer) (> 60) Est GFR (Non-Af Amer) (> 60) BUN/Creatinine Ratio (6-26) Glucose (70-99) mg/dL Calculated Osmolality (280-300) Lactic Acid (0.5-2.2) mmol/L Calcium (8.6-10.8) mg/dL Troponin I 0.06 H* (0-0.03) ng/mL B-Natriuretic Peptide 379 H (0-100) pg/mL Attestation Statement - Attestation Attestation: I examined this patient and my medical decision-making was reviewed with the RETAIL CUSTOMER SERVICE SPECIALIST/PA/Advanced Practice Nurse/Resident Physician. I agree with the documented findings, disposition and treatment plan as described except to the extent set forth below. Patient to ED with difficulty in breathing. Patient found low oxygen saturation by medics. Required CPAP en route. Patient is oxygen dependent was BiPAP at night. On examination she is visibly dyspneic with accessory muscle use. Diffuse expiratory wheezing. Plan. 3 duo nebs given. Patient tolerating BiPAP well this time. Patient being septic shock criteria with elevated creatinine and white count with bandemia. She is given a liter of fluid. She has a history of CHF and her BNP is elevated here. She will be given 1 L secondary to concern for fluid overload and possible respiratory failure. She is not hypotensive. Patient be treated for healthcare associated pneumonia and admitted to medicine. 30 minutes of critical care exclusive of separately billable procedures.
[2016-12-31 00:25] LABS: Hematocrit 37.6 % (35.3-44.9); Hemoglobin 11.9 g/dL (11.5-15.4); Immature Platelets 4.3 % (1.1-6.1); Mean Corpuscular HGB Conc 31.6 g/dL (31.6-35.5); Mean Corpuscular Hemoglobin 28.6 pg (28.0-33.3); Mean Corpuscular Volume 90.4 fL (83.0-100.0); Mean Platelet Volume 9.9 fL (9.4-12.4); Monocytes # 0.8 K/mcL (0.0-1.3); Platelet Count 182 K/mcL (140-400); Red Blood Count 4.16 M/mcL (3.82-4.97); Red Cell Distribution Width 14.9 % (11.5-14.5)
[2016-12-31 00:43] LABS: Lymphocytes # 1.4 K/mcL (0.6-4.6); Neutrophils # 10.8 K/mcL (1.6-8.9); Platelet Estimate Normal (Normal)
[2016-12-31 00:44] LABS: Large Platelets Present (Not Present); Reactive Lymphocytes Present (Not Present)
[2016-12-31 00:57] LABS: Calcium 9.6 mg/dL (8.6-10.8); Potassium 3.7 mEq/L (3.5-4.5)
[2016-12-31] MEDS ORDERED: 0.9 % Sodium Chloride 1,000 ML IVC ONE (01:39)
[2016-12-31] MEDS ORDERED: Aspirin 325 MG TABLET PO ONE (01:41)
[2016-12-31] MEDS ORDERED: Vancomycin 2,000 MG in D5% in Water 500 ML IVPB ONE (01:42)
[2016-12-31] MEDS ORDERED: Levofloxacin 750 MG/150 ML 750 MG/150 ML BAG IVPB ONE (01:43)
[2016-12-31] MEDS ORDERED: Piperacillin/Tazobactam 3.375 GM in D5% in Water (Mini-Bag+) 100 ML IVPB ONE (01:43)
[2016-12-31] MEDS ORDERED: Naloxone 0.4 MG/ML INJ IVP PRN (04:32)
--- NOTE | 2016-12-31 04:37 | Internal Med History&Physical ---
Date of Encounter: 12/31/16 Time of Encounter: 04:22 Assessment and Plan (1) Pneumonia Current visit: Yes Status: Acute Imaging is suggestive of a right upper lobe pneumonia. We will treat her for healthcare associated pneumonia, with vancomycin, Zosyn, Levaquin. Blood cultures and sputum cultures. Probiotics. Qualifiers: Pneumonia type: due to unspecified organism Laterality: right Lung location: upper lobe of lung Qualified Code(s): J18.1 - Lobar pneumonia, unspecified organism (2) Severe sepsis Current visit: Yes Status: Acute Lactate is elevated and leucocytosis present. Pt was given IV fluids and antibiotics in the ER. Monitor lactate level (3) Acute and chronic respiratory failure Current visit: Yes Status: Acute Continue with supplemental oxygen and BiPAP therapy. Qualifiers: Respiratory failure complication: hypoxia Qualified Code(s): J96.21 - Acute and chronic respiratory failure with hypoxia (4) Elevated troponin Current visit: Yes Status: Acute Possibly due to demand ischemia. Trend troponins. (5) Congestive heart failure Current visit: Yes Status: Chronic Continue home medications Qualifiers: Congestive heart failure type: diastolic Congestive heart failure chronicity: unspecified congestive heart failure chronicity Qualified Code(s) : I50.30 - Unspecified diastolic (congestive) heart failure (6) CKD (chronic kidney disease) stage 3, GFR 30-59 ml/min Current visit: Yes Status: Chronic Monitor renal function and avoid nephrotoxins. (7) Hypertension Current visit: Yes Status: Chronic Continue antihypertensives Qualifiers: Hypertension type: essential hypertension Qualified Code(s): I10 - Essential (primary) hypertension (8) Obesity hypoventilation syndrome Current visit: Yes Status: Chronic continue BiPAP therapy (9) Type 2 diabetes mellitus Current visit: Yes Status: Chronic Hold metformin and start sliding scale insulin Qualifiers: Diabetes mellitus complication status: with hyperglycemia Diabetes mellitus termite treater insulin use: without termite treater use Qualified Code(s): E11.65 - Type 2 diabetes mellitus with hyperglycemia (10) Morbid obesity with BMI of 45.0-49.9, adult Current visit: Yes Status: Chronic (11) DVT prophylaxis Current visit: Yes Status: Acute Heparin subQ Internal Medicine - H&P: HPI Chief complaint: Shortness of breath, right sided chest pain Admitted From: Emergency Dept Plans for Post Hospital Care: Home History of present illness: Ms. Pollack is a 71 year old female with past medical significant for Congestive heart failure, type 2 diabetes (oral antihyperglycemic), CKD stage III, obesity , obesity hypoventilation syndrome, COPD, history of recurrent pneumonia, chronic respiratory failure (Baseline O2 use is 3 L continuous during the day, 4 L at night with BiPAP). Patient is somnolent and is not able to give clinical details. Patients daughter is at the bedside and given the clinical details. Patient apparently complained of pain under the right breast yesterday, which was getting worse, and shortness of breath was worsening. She had the cough with clear sputum. She apparently had temperature of 102 degrees. She presented to the ER and was thought to have pneumonia, sepsis. She was given vancomycin, Zosyn and levofloxacin. She is admitted to the hospitalist service for further workup and management. Past Med Surg Social Fam HX - Past Medical History Medical history: CHF, COPD, DVT, diabetes, hyperlipidemia, hypertension Psychiatric history: anxiety, depression - Past Surgical History Surgical History: appendectomy, - Social History Smoking Status: Former smoker Smokeless Tobacco Status: No Alcohol use: none Drug use: none - Family History Mother Family Member Ethnicity: Non- Living Status: Hx Family Cardiac Disorders: Yes Hx Family Respiratory Disorders: Yes Hx Family Cancer: Yes Hx Family GI Disorders: No Hx Family Endocrine Disorder: No Hx Family Neuromuscular Disorders: No Hx Family Neurologic Disorders: No Hx Family HEENT Disorders: No Hx Family Autoimmune Disorders: No Father Living Status: Hx Family Cancer: Yes Internal Medicine - H&P: Meds Albuterol Sulfate [Albuterol Inhaler] 2 puff IH Q4H PRN 08/23/16 [History] Amitriptyline [Elavil] 10 mg PO HS 08/23/16 [History] Ascorbate Calcium [Vitamin C] 500 mg PO DAILY 08/23/16 [History] Aspirin 81 mg PO DAILY 08/23/16 [History] Fish Oil/Dha/Epa [Fish Oil 1,200 mg Fish Oil] 1 cap PO DAILY 08/23/16 [History] Metoprolol [Lopressor] 100 mg PO BID 08/23/16 [History] Tiotropium [place] [Spiriva] 18 mcg IH DAILY 08/23/16 [History] Vitamin B Complex 1 cap PO DAILY 08/23/16 [History] hydrOXYzine HCl [Hydroxyzine HCl] 25 mg PO DAILY PRN 08/23/16 [History] Nystatin POWDER [Nystop] 1 appl TP BID #1 bottle 08/27/16 [Rx] metFORMIN [Glucophage] 500 mg PO BID #60 tablet 08/27/16 [Rx] Oxygen 2 l NS CONT 09/21/16 [History] Diltiazem CD (24hr) [Cardizem CD] 180 mg PO DAILY #30 cap.er.24h 10/14/16 [Rx] Furosemide [Lasix] 60 mg PO BID #60 tablet 10/14/16 [Rx] ALPRAZolam [Xanax 0.25 MG Tablet] 0.25 mg PO HS PRN 12/06/16 [History] Biotin 1 mg PO DAILY 12/06/16 [History] Budesonide/Formoterol 160/4.5 [Symbicort 160/4.5] 2 puff IH DAILY 12/06/16 [ History] Calcium Carbonate [Calcium] 500 mg PO DAILY 12/06/16 [History] Cholecalciferol (D-3) [Vitamin D] 1,000 unit PO DAILY 12/06/16 [History] Docusate [Colace] 100 mg PO DAILY PRN 12/06/16 [History] Ipratropium/Albuterol Neb [Duoneb] 3 ml IH QIDR 12/06/16 [History] Lovastatin 40 mg PO HS 12/06/16 [History] Multivit-Min/Iron/Folic/Lutein [Centrum Silver Women Tablet] 1 each PO DAILY 05/15 [History] Multivits Min/Iron/FA/Herb#186 [Hair, Skin and Nails Caplet] 1 each PO DAILY 05/15 [History] Vitamin E Acid Succinate [Vitamin E] 400 units PO DAILY 12/06/16 [History] Levofloxacin [Levaquin] 750 mg PO DAILY #5 tablet 12/08/16 [Rx] Allergies No Known Allergies Allergy (Verified 08/23/16 19:46) ROS unobtainable: due to mental status - Constitutional Vitals: Temp Pulse Resp BP Pulse Ox 99.6 F 82 20 129/57 96 12/30/16 23:51 12/31/16 03:41 12/31/16 03:41 12/31/16 03:41 12/31/16 03:41 Exam: General: Somnulent and is not able to answer the questions. HEENT: BiPAP in place Neck: No obvious neck swellings Lungs: Ronchi in the right lung Cardiac: Regular rate and rhythm. No significant murmurs Abdomen: Obese, non tender. Bowel sounds present Genitourinary: No peterson catheter Neurological: Somnulent, Not able to follow the commands Psych: Not aggressive or agitated Extremities: B/L leg edema present Skin: No generalized rash Internal Med - H&P Results - Labs CBC & Chem 7: 12/31/16 00:19 12/31/16 00:19 - EKG Data -: EKG Interpreted by Myself EKG shows normal: sinus rhythm Rate: normal - Impressions ITS Impressions Chest X-Ray 12/31/16 00:01 IMPRESSION: 1. Interval development of dense airspace consolidation within the right upper lobe, which given its quick involvement, is favored represent right upper lobe pneumonia. However, partial right upper lobe collapse from a central obstructing mass cannot be excluded. Consider further evaluation with dedicated chest CT with contrast. 2. Interval improvement in appearance of right basilar atelectasis. 3. Stable cardiomegaly. D/ / Henry Gary MD / Henry Gary MD Interpreting Provider: Henry Gary MD
[2016-12-31] MEDS ORDERED: D5% in Water 1,000 ML IVC PRN (04:42)
[2016-12-31] MEDS ORDERED: Dextrose Gel 15 GM PO PRN ×2 (04:42)
[2016-12-31] MEDS ORDERED: *HR* Dextrose 50 % in Water (Syg) 50 ML SYRINGE IVP PRN (04:42)
[2016-12-31] MEDS ORDERED: Vancomycin 2,000 MG in D5% in Water 250 ML IVPB SCH (05:00)
[2016-12-31] MEDS ORDERED: Levofloxacin 500 MG/100 ML 500 MG/100 ML BAG IVPB SCH (05:00)
[2016-12-31] MEDS: *HR* Heparin 5,000 UNIT/ML VIAL SQ SCH ×3 (05:38→21:59)
[2016-12-31] MEDS: Levofloxacin 750 MG/150 ML 750 MG/150 ML BAG IVPB SCH (05:38)
[2016-12-31 06:53] LABS: INR 1.4; Prothrombin Time 15.4 Seconds (9.4-12.1)
[2016-12-31 07:37] LABS: Magnesium 1.3 mg/dL (1.6-2.6)
[2016-12-31] MEDS: Lactobacillus 1 EACH CAP.SPRINK PO SCH ×2 (07:50→20:13)
[2016-12-31] MEDS: Insulin LISPRO 300 UNITS/3 ML VIAL SQ SCH ×3 (07:50→16:56)
[2016-12-31] MEDS: Piperacillin/Tazobactam 3.375 GM in D5% in Water (Mini-Bag+) 100 ML IVPB SCH ×2 (07:51→16:55)
[2016-12-31] MEDS: Acetaminophen 325 MG TABLET PO PRN ×3 (08:10→21:59)
--- NOTE | 2016-12-31 11:06 | Event Note ---
Date of Encounter: 12/31/16 Time of Encounter: 11:06 Patient is a 71y/o female admitted for sepsis secondary to HCAP and COPD exacerbation secondary to HCAP. Pt seen and examined with daughter present at bedside. Pt reports of feeling better compared to previous day. Remains bipap dependent with drop in O2 saturations noted on nasal cannula. Lactic acidosis persists likely secondary hypoxia. Will closely monitor. Will continue broad spectrum IV abx bipap support with breaks for meals will start Solumedrol 40mg IV q8h bronchodilator support Will restart patient's home medications after verification. Pt also noted to have history of Afib, as per daughter and patient, she had one time episode when she was last diagnosed with PNA and was not able to tolerated anticoagulation due to rectal bleed. Currently rate controlled with ASA for CVA ppx.
[2016-12-31] MEDS ORDERED: MethylPREDNISolone 40 MG/ML VIAL IVP SCH ×2 (12:00→18:00)
[2016-12-31] MEDS: MethylPREDNISolone 40 MG/ML VIAL IVP SCH ×2 (12:05→20:13)
[2016-12-31] MEDS ORDERED: *HR* Acetaminophen w/Cod 300-30 mg 1 TAB TABLET PO PRN (12:37)
[2016-12-31] MEDS: Diltiazem CD (24hr) 180 MG CAPSULE PO SCH (13:51)
[2016-12-31] MEDS: Aspirin 81 MG TAB.CHEW PO SCH (13:51)
[2016-12-31] MEDS: Ipratropium/Albuterol Neb 3 ML IH PRN ×2 (15:27→20:07)
[2016-12-31] MEDS: Budesonide/Formoterol 160/4.5 MDI IH SCH (15:28)
[2016-12-31] MEDS: Tiotropium 18 MCG inhalation IH SCH (15:29)
[2016-12-31 18:36] LABS: Bilirubin,Urine Negative (Negative); Blood,Urine Negative (Negative); Clarity,Urine Cloudy (Clear); Color,Urine Yellow (Yellow); Glucose,Urine (UA) Normal (Normal); Ketones,Urine Negative (Negative); Leukocyte Esterase,Urine Moderate (Negative); Nitrite,Urine Negative (Negative); PH,Urine 5.5 pH Units (5.0-8.0); Protein,Urine Negative (Neg-Trace); Specific Gravity,Urine 1.017 (1.010-1.025); Urobilinogen,Urine Normal (Normal)
[2016-12-31 18:37] LABS: Bacteria,Urine None Seen per hpf (None-Few); Hyaline Casts,Urine None Seen per lpf (None-Few); Squamous Epithelial Cell,Urine Many per lpf (None-Few); WBC,Urine 15-30 per hpf (0-3)
[2016-12-31] MEDS: Metoprolol 100 MG TABLET PO SCH (20:13)
[2016-12-31] MEDS ORDERED: Insulin LISPRO 300 UNITS/3 ML VIAL SQ SCH (21:00)
[2016-12-31] MEDS ORDERED: Furosemide 20 MG TABLET PO SCH (21:00)
[2016-12-31] MEDS: Nystatin POWDER 30 GM BOTTLE TP SCH (21:58)
[2017-01-01] MEDS: Piperacillin/Tazobactam 3.375 GM in D5% in Water (Mini-Bag+) 100 ML IVPB SCH ×4 (00:01→23:48)
[2017-01-01] MEDS: ALPRAZolam 0.25 MG TABLET PO PRN (01:36)
[2017-01-01] MEDS ORDERED: Vancomycin 2,000 MG in D5% in Water 500 ML IVPB SCH (02:00)
[2017-01-01] MEDS: MethylPREDNISolone 40 MG/ML VIAL IVP SCH (03:42)
[2017-01-01] MEDS: Ipratropium/Albuterol Neb 3 ML IH PRN (03:58)
[2017-01-01] MEDS: *HR* Heparin 5,000 UNIT/ML VIAL SQ SCH ×3 (06:13→20:43)
[2017-01-01 06:24] LABS: Hematocrit 33.2 % (35.3-44.9); Hemoglobin 10.6 g/dL (11.5-15.4); Mean Corpuscular HGB Conc 31.9 g/dL (31.6-35.5); Mean Corpuscular Hemoglobin 28.6 pg (28.0-33.3); Mean Corpuscular Volume 89.7 fL (83.0-100.0); Mean Platelet Volume 11.2 fL (9.4-12.4); Platelet Count 148 K/mcL (140-400); Red Cell Distribution Width 14.6 % (11.5-14.5)
[2017-01-01 06:33] LABS: Calcium 9.4 mg/dL (8.6-10.8); Magnesium 1.7 mg/dL (1.6-2.6); Phosphorous 3.2 mg/dL (2.3-4.7); Potassium 3.6 mEq/L (3.5-4.5)
[2017-01-01 07:53] LABS: Lymphocytes # 0.7 K/mcL (0.6-4.6); Monocytes # 0.2 K/mcL (0.0-1.3); Neutrophils # 8.3 K/mcL (1.6-8.9)
[2017-01-01 07:54] LABS: Hypochromasia Present (Not Present)
[2017-01-01] MEDS: Budesonide/Formoterol 160/4.5 MDI IH SCH (08:09)
[2017-01-01] MEDS: Tiotropium 18 MCG inhalation IH SCH (08:09)
[2017-01-01] MEDS ORDERED: *HR* Acetaminophen w/Cod 300-30 mg 1 TAB TABLET PO PRN (08:14)
[2017-01-01] MEDS: Ascorbic Acid 500 MG TABLET PO SCH (08:32)
[2017-01-01] MEDS: Insulin LISPRO 300 UNITS/3 ML VIAL SQ SCH ×4 (08:32→20:52)
[2017-01-01] MEDS: Diltiazem CD (24hr) 180 MG CAPSULE PO SCH (08:32)
[2017-01-01] MEDS: Vitamin B Complex/Vit C/Vit E 1 EACH TABLET PO SCH (08:33)
[2017-01-01] MEDS: Aspirin 81 MG TAB.CHEW PO SCH (08:33)
[2017-01-01] MEDS: Metoprolol 100 MG TABLET PO SCH ×2 (08:33→20:43)
[2017-01-01] MEDS: Cholecalciferol (D-3) 1,000 UNIT TABLET PO SCH (08:33)
[2017-01-01] MEDS: Lactobacillus 1 EACH CAP.SPRINK PO SCH ×2 (08:33→20:42)
[2017-01-01] MEDS: Nystatin POWDER 30 GM BOTTLE TP SCH ×2 (08:36→20:43)
[2017-01-01] MEDS ORDERED: (Biotin [Biotin] 1 MG) PO SCH (09:00)
[2017-01-01] MEDS: Acetaminophen 325 MG TABLET PO PRN ×3 (09:16→23:47)
[2017-01-01] MEDS: *HR* Acetylcysteine 20% 600 MG/3 ML ORAL SYRINGE PO SCH ×2 (10:28→20:42)
--- NOTE | 2017-01-01 11:37 | Internal Med Progress Note ---
Date of Encounter: 01/01/17 Time of Encounter: 11:35 - Assessment and plan (1) Acute on chronic respiratory failure Current Visit: No Status: Acute Assessment and plan: Secondary to HCAP/COPD exacerbation continue bipap support with break for meals increased steroids to Solumedrol 60mg IV q8h continue bronchodilator support if clinically worsens, consider pulmonary evaluation lactic acidosis resolved continue broad spectrum IV abx for pneumonia f/u blood cultures, alter therapy as per culture results continue O2 supplementation monitor O2 saturation, goal O2 sat: 89-92% will closely monitor respiratory status incentive spirometry encouraged Qualifiers: Respiratory failure complication: hypoxia Qualified Code(s): J96.21 - Acute and chronic respiratory failure with hypoxia (2) Hospital-acquired pneumonia Current Visit: Yes Status: Acute Assessment and plan: as listed above (3) Acute exacerbation of chronic obstructive airways disease Current Visit: No Status: Acute Assessment and plan: as listed above (4) Acute worsening of stage 3 chronic kidney disease Current Visit: No Status: Acute Assessment and plan: renal function improving however patient received CT chest with contrast today ( 01/01/17) pt given Mucomyst prior to imaging study and holding today's dose of Lasix Resume lasix in am and closely monitor renal function (5) Congestive heart failure Current Visit: Yes Status: Chronic Assessment and plan: not in acute exacerbation continue home medications Qualifiers: Congestive heart failure type: diastolic Congestive heart failure chronicity: unspecified congestive heart failure chronicity Qualified Code(s) : I50.30 - Unspecified diastolic (congestive) heart failure (6) Type 2 diabetes mellitus Current Visit: Yes Status: Chronic Assessment and plan: noted to be hyperglycemia likely worsened secondary to steroid therapy will increase to high dose sliding scale insulin algorithm will closely monitor FS and BG will adjust insulin therapy as needed Qualifiers: Diabetes mellitus complication status: with hyperglycemia Diabetes mellitus intermission coordinator insulin use: without intermission coordinator use Qualified Code(s): E11.65 - Type 2 diabetes mellitus with hyperglycemia (7) Hypertension Current Visit: Yes Status: Chronic Assessment and plan: BP within acceptable range continue home medications Qualifiers: Hypertension type: essential hypertension Qualified Code(s): I10 - Essential (primary) hypertension (8) Obesity hypoventilation syndrome Current Visit: Yes Status: Chronic Assessment and plan: bipap support (9) DVT prophylaxis Current Visit: Yes Status: Acute Assessment and plan: Heparin SQ - Subjective Interval history: Patient seen and examined at bedside. Resting in bed with family present at bedside. Pt continues to have increase oxygen demand and due to the CXR findings , a CT chest was obtained. CT chest negative for any malignancy and consistent with multifocal pneumonia. Pt reports of feeling better despite the increase O2 demand. No overnight issues were reported. - Constitutional Vitals: Temp Pulse Resp BP Pulse Ox 98 F 69 17 123/67 89 01/01/17 11:27 01/01/17 11:27 01/01/17 11:27 01/01/17 11:27 01/01/17 11:27 General appearance: Present: A&O X 3, morbidly obese, no acute distress, answers questions appropriately - Head Head exam: Present: atraumatic, normocephalic - Eye Eye exam: Present: normal appearance, conjuntiva pink, sclera anicteric - Respiratory Additional comments: decreased breath sounds bilaterally coarse breath sounds bilaterally - Cardiovascular Cardiovascular exam: Present: RRR, +S1, +S2. Absent: diastolic murmur, gallop, rubs, systolic murmur - GI/Abdominal GI/Abdominal exam: Present: distended (obese), normal bowel sounds, soft. Absent: tenderness - Extremities Exam Extremities exam: Present: pedal edema, warm, radial pulses palpable and symetrical. Absent: calf tenderness - Neurological Exam Neurological exam: Present: alert, oriented X3 - Psychiatric Psychiatric exam: Present: normal affect, normal mood Internal Medicine: Result - Labs CBC & Chem 7: 01/01/17 05:44 01/01/17 05:44 Labs: Short CBC 01/01/17 Range/Units 05:44 WBC 9.2 (4.3-11.1) K/mcL Hgb 10.6 L (11.5-15.4) g/dL Hct 33.2 L (35.3-44.9) % Plt Count 148 (140-400) K/mcL Neutrophils # 8.3 (1.6-8.9) K/mcL BMP 01/01/17 05:44 Sodium 135 L Potassium 3.6 Chloride 97 L Carbon Dioxide 25 BUN 44 H Creatinine 1.33 H Glucose 217 H Calcium 9.4 Urine 12/31/16 Range/Units 18:10 Urine Color Yellow (Yellow) Urine Clarity Cloudy A (Clear) Urine pH 5.5 (5.0-8.0) pH Units Ur Specific [place] 1.017 (1.010-1.025) Urine Protein Negative (Neg-Trace) mg/dL Urine Glucose (UA) Normal (Normal) mg/dL - ABG Interpretation ABG results: PT/INR, D-dimer PT 15.4 Seconds (9.4-12.1) H 12/31/16 05:30 - Impressions Impressions Chest CT 01/01/17 10:30 IMPRESSION: 1. Multifocal right lung and mild left lung base consolidations suggesting acute multifocal pneumonia. Trace bilateral pleural effusion. 2. Borderline mediastinal and right hilar lymph nodes which may be reactive in nature. No severe lymphadenopathy. 3. Coronary and aortic atherosclerosis. Enlarged heart size. 4. Emphysema. No evidence of a central obstructing mass or spiculated lesion to suggest primary lung cancer. D/ 01/01/2017 11:16:34 David Mcintosh MD / brigid Interpreting Provider: David Mcintosh MD Consult Discharge Plan - Plan Referrals: Eduardo Hernandez Jr, MD [Primary Care Provider] - 01/09/17 11:00 am (Please follow up as schedule...)
[2017-01-01] MEDS: Furosemide 20 MG TABLET PO SCH (11:56)
[2017-01-01] MEDS: methylPREDNISolone 125 MG/2 ML VIAL IVP SCH ×3 (12:05→23:47)
[2017-01-01] MEDS: Ipratropium/Albuterol Neb 3 ML IH SCH ×4 (15:27→23:51)
--- NOTE | 2017-01-01 16:38 | Electrocardiograph Report ---
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
[2017-01-02] MEDS: ALPRAZolam 0.25 MG TABLET PO PRN (00:05)
[2017-01-02 00:57] LABS: Basophils % 0.1 %; Hematocrit 34.6 % (35.3-44.9); Immature Granulocytes % 1.6 % (0-4); Lymphocytes # 0.6 K/mcL (0.6-4.6); Lymphocytes % 8.2 %; Mean Corpuscular HGB Conc 31.8 g/dL (31.6-35.5); Mean Corpuscular Hemoglobin 28.6 pg (28.0-33.3); Mean Corpuscular Volume 90.1 fL (83.0-100.0); Mean Platelet Volume 11.3 fL (9.4-12.4); Monocytes # 0.4 K/mcL (0.0-1.3); Monocytes % 6.3 %; Platelet Count 161 K/mcL (140-400); Red Blood Count 3.84 M/mcL (3.82-4.97); Red Cell Distribution Width 14.6 % (11.5-14.5); Segmented Neutrophils % 83.8 %
[2017-01-02 00:58] LABS: Calcium 9.5 mg/dL (8.6-10.8); Magnesium 1.8 mg/dL (1.6-2.6); Neutrophils # 5.9 K/mcL (1.6-8.9); Phosphorous 2.8 mg/dL (2.3-4.7); Potassium 3.3 mEq/L (3.5-4.5)
[2017-01-02 01:15] LABS: Platelet Estimate Normal (Normal); Polychromasia 1+ (Not Present); Reactive Lymphocytes Present (Not Present)
[2017-01-02] MEDS ORDERED: Vancomycin 1,500 MG in D5% in Water 250 ML IVPB SCH (02:00)
[2017-01-02] MEDS: Ipratropium/Albuterol Neb 3 ML IH SCH ×6 (04:11→23:19)
[2017-01-02] MEDS: Levofloxacin 750 MG/150 ML 750 MG/150 ML BAG IVPB SCH (05:53)
[2017-01-02] MEDS: *HR* Heparin 5,000 UNIT/ML VIAL SQ SCH ×3 (05:54→21:55)
[2017-01-02] MEDS: methylPREDNISolone 125 MG/2 ML VIAL IVP SCH ×2 (05:54→15:03)
[2017-01-02] MEDS: Acetaminophen 325 MG TABLET PO PRN ×3 (06:46→21:52)
[2017-01-02] MEDS: Vitamin B Complex/Vit C/Vit E 1 EACH TABLET PO SCH (07:57)
[2017-01-02] MEDS: Diltiazem CD (24hr) 180 MG CAPSULE PO SCH (07:57)
[2017-01-02] MEDS: Ascorbic Acid 500 MG TABLET PO SCH (07:57)
[2017-01-02] MEDS: Metoprolol 100 MG TABLET PO SCH ×2 (07:57→21:51)
[2017-01-02] MEDS: Lactobacillus 1 EACH CAP.SPRINK PO SCH ×2 (07:57→21:51)
[2017-01-02] MEDS: Cholecalciferol (D-3) 1,000 UNIT TABLET PO SCH (07:57)
[2017-01-02] MEDS: Furosemide 20 MG TABLET PO SCH ×2 (07:57→18:04)
[2017-01-02] MEDS: Aspirin 81 MG TAB.CHEW PO SCH (07:58)
[2017-01-02] MEDS: Piperacillin/Tazobactam 3.375 GM in D5% in Water (Mini-Bag+) 100 ML IVPB SCH ×2 (07:58→15:04)
[2017-01-02] MEDS: Insulin LISPRO 300 UNITS/3 ML VIAL SQ SCH ×4 (08:14→23:00)
[2017-01-02] MEDS: Nystatin POWDER 30 GM BOTTLE TP SCH ×2 (08:16→23:21)
[2017-01-02] MEDS ORDERED: Aminoglycoside Consult 1 EACH MC ONE (12:00)
--- NOTE | 2017-01-02 14:59 | Internal Med Progress Note ---
Date of Encounter: 01/02/17 Time of Encounter: 09:50 - Assessment and plan (1) Acute and chronic respiratory failure with hypoxia Current Visit: Yes Status: Acute Assessment and plan: Due to pneumonia and COPD exacerbation. Continue O2 supplementation. Still requiring high flow nasal cannula. We will wean FiO2 as tolerated. Physical therapy. High-risk for complications. Keep sats greater than 88% (2) Acute exacerbation of chronic obstructive airways disease Current Visit: Yes Status: Acute Assessment and plan: Continue steroids, antibiotics and bronchodilator nebs. Continue O2 supplementation (3) Congestive heart failure Current Visit: Yes Status: Chronic Assessment and plan: Not in acute exacerbation. Continue Lasix orally. Qualifiers: Congestive heart failure type: diastolic Congestive heart failure chronicity: unspecified congestive heart failure chronicity Qualified Code(s) : I50.30 - Unspecified diastolic (congestive) heart failure (4) Hospital-acquired pneumonia Current Visit: Yes Status: Acute Assessment and plan: Leukocytosis resolved. Responding well to broad-spectrum antibiotics. Blood cultures have been negative. We will begin to de-escalate. Continue levofloxacin and Zosyn. Stop vancomycin. (5) Hypertension Current Visit: Yes Status: Chronic Assessment and plan: Uncontrolled. Continue to monitor blood pressure. On Lopressor and diltiazem. If Her blood pressure remains elevated, we will add amlodipine. Qualifiers: Hypertension type: essential hypertension Qualified Code(s): I10 - Essential (primary) hypertension (6) Morbid obesity with BMI of 45.0-49.9, adult Current Visit: Yes Status: Chronic (7) Obesity hypoventilation syndrome Current Visit: Yes Status: Chronic Assessment and plan: Could be contributing to patient's hypoxia. Recommend ambulation and physical therapy. Also receiving incentive spirometry. (8) Type 2 diabetes mellitus Current Visit: Yes Status: Chronic Assessment and plan: Blood sugars remain elevated. We will add long-acting insulin. Qualifiers: Diabetes mellitus complication status: with hyperglycemia Diabetes mellitus skilled nursing insulin use: without salvage determiner use Qualified Code(s): E11.65 - Type 2 diabetes mellitus with hyperglycemia - Subjective Interval history: Patient is feeling better today. Denies any new complaints at this time. No chest pain. Shortness of breath is improving. No fever or chills reported overnight. Still requiring high flow nasal cannula O2 supplementation - Constitutional Vitals: Temp Pulse Resp BP Pulse Ox 97.9 F 76 18 170/69 87 01/02/17 11:38 01/02/17 11:38 01/02/17 11:38 01/02/17 11:38 01/02/17 11:38 General appearance: Present: A&O X 3, morbidly obese, obese, answers questions appropriately Exam: Moderate distress - Respiratory Respiratory exam: Present: decreased breath sounds (Decreased air entry bilaterally), prolonged expiratory phase, wheezes. Absent: accessory muscle use , rales, rhonchi - Cardiovascular Cardiovascular exam: Present: RRR, +S1, +S2. Absent: diastolic murmur, gallop, rubs, systolic murmur - Extremities Exam Extremities exam: Present: warm, radial pulses palpable and symetrical. Absent : calf tenderness, cyanotic, pedal edema - Neurological Exam Neurological exam: Present: CN II-XII intact, oriented X3, no focal deficits. Absent: facial droop, speech deficit - Skin Skin exam: Present: dry, intact Internal Medicine: Result - Labs CBC & Chem 7: 01/02/17 00:31 01/02/17 00:31 Labs: Short CBC 01/02/17 Range/Units 00:31 WBC 7.0 (4.3-11.1) K/mcL Hgb 11.0 L (11.5-15.4) g/dL Hct 34.6 L (35.3-44.9) % Plt Count 161 (140-400) K/mcL Neutrophils # 5.9 (1.6-8.9) K/mcL BMP 01/02/17 00:31 Sodium 139 Potassium 3.3 L Chloride 98 Carbon Dioxide 31 H BUN 47 H Creatinine 1.22 H Glucose 227 H Calcium 9.5 - ABG Interpretation ABG results: PT/INR, D-dimer PT 15.4 Seconds (9.4-12.1) H 12/31/16 05:30 Consult Discharge Plan - Plan Referrals: Eduardo Hernandez Jr, MD [Primary Care Provider] - 01/09/17 11:00 am (Please follow up as schedule...) - Attending Attestation This document has been at least partially created by [employer] recognition technology by Dr. Bermudez. Errors in grammar, wording or other phrases may exist. If errors are found after the documentation is signed, they will be addressed individually in the addendum section of this document when appropriate.
[2017-01-02] MEDS ORDERED: Insulin DETEMIR 100 UNIT/ML X5UNITS SQ SCH (21:00)
[2017-01-02] MEDS: *HR* Acetylcysteine 20% 600 MG/3 ML ORAL SYRINGE PO SCH (23:01)
[2017-01-03] MEDS: ALPRAZolam 0.25 MG TABLET PO PRN (00:01)
[2017-01-03] MEDS: methylPREDNISolone 125 MG/2 ML VIAL IVP SCH (00:27)
[2017-01-03] MEDS: Ipratropium/Albuterol Neb 3 ML IH SCH ×6 (03:36→23:35)
[2017-01-03 04:38] LABS: Basophils % 0.4 %; Hematocrit 36.4 % (35.3-44.9); Hemoglobin 11.4 g/dL (11.5-15.4); Immature Granulocytes % 3.3 % (0-4); Lymphocytes # 0.7 K/mcL (0.6-4.6); Lymphocytes % 9.8 %; Mean Corpuscular HGB Conc 31.3 g/dL (31.6-35.5); Mean Corpuscular Hemoglobin 28.3 pg (28.0-33.3); Mean Corpuscular Volume 90.3 fL (83.0-100.0); Mean Platelet Volume 10.8 fL (9.4-12.4); Monocytes # 0.4 K/mcL (0.0-1.3); Neutrophils # 5.7 K/mcL (1.6-8.9); Platelet Count 157 K/mcL (140-400); Red Blood Count 4.03 M/mcL (3.82-4.97); Red Cell Distribution Width 14.3 % (11.5-14.5); Segmented Neutrophils % 80.5 %
[2017-01-03 05:00] LABS: Calcium 9.4 mg/dL (8.6-10.8); Potassium 3.7 mEq/L (3.5-4.5)
[2017-01-03] MEDS ORDERED: Levofloxacin 750 MG/150 ML 750 MG/150 ML BAG IVPB SCH (05:00)
[2017-01-03] MEDS: Levofloxacin 750 MG/150 ML 750 MG/150 ML BAG IVPB SCH (05:20)
[2017-01-03] MEDS ORDERED: Piperacillin/Tazobactam 3.375 GM in D5% in Water (Mini-Bag+) 100 ML IVPB SCH (06:00)
[2017-01-03] MEDS: *HR* Heparin 5,000 UNIT/ML VIAL SQ SCH ×3 (06:54→21:22)
[2017-01-03] MEDS: predniSONE 20 MG TABLET PO SCH (09:15)
[2017-01-03] MEDS: Insulin DETEMIR 100 UNIT/ML X5UNITS SQ SCH ×2 (09:15→21:22)
[2017-01-03] MEDS: Lactobacillus 1 EACH CAP.SPRINK PO SCH ×2 (09:16→21:22)
[2017-01-03] MEDS: Ascorbic Acid 500 MG TABLET PO SCH (09:16)
[2017-01-03] MEDS: Aspirin 81 MG TAB.CHEW PO SCH (09:16)
[2017-01-03] MEDS: Metoprolol 100 MG TABLET PO SCH ×2 (09:16→21:23)
[2017-01-03] MEDS: Cholecalciferol (D-3) 1,000 UNIT TABLET PO SCH (09:16)
[2017-01-03] MEDS: Diltiazem CD (24hr) 180 MG CAPSULE PO SCH (09:16)
[2017-01-03] MEDS: Vitamin B Complex/Vit C/Vit E 1 EACH TABLET PO SCH (09:16)
[2017-01-03] MEDS: Furosemide 20 MG TABLET PO SCH ×2 (09:16→18:01)
[2017-01-03] MEDS: Insulin LISPRO 300 UNITS/3 ML VIAL SQ SCH ×4 (09:18→21:21)
[2017-01-03] MEDS: Nystatin POWDER 30 GM BOTTLE TP SCH (09:19)
[2017-01-03] MEDS: Acetaminophen 325 MG TABLET PO PRN ×3 (09:22→21:22)
--- NOTE | 2017-01-03 16:49 | Internal Med Progress Note ---
Date of Encounter: 01/03/17 Time of Encounter: 09:25 - Assessment and plan (1) Acute and chronic respiratory failure with hypoxia Current Visit: Yes Status: Acute Assessment and plan: Continue current treatment plans with O2 supplementation and treat underlying pneumonia. We will wean FiO2 as tolerated. Currently on 6 L high flow nasal cannula. Target O2 sats of greater than 88% (2) Acute exacerbation of chronic obstructive airways disease Current Visit: Yes Status: Acute (3) Congestive heart failure Current Visit: Yes Status: Chronic Assessment and plan: On oral Lasix. Qualifiers: Congestive heart failure type: diastolic Congestive heart failure chronicity: unspecified congestive heart failure chronicity Qualified Code(s) : I50.30 - Unspecified diastolic (congestive) heart failure (4) Hospital-acquired pneumonia Current Visit: Yes Status: Acute Assessment and plan: Sputum culture positive for strep pneumoniae. Will de-escalate antibiotics. Continue levofloxacin. Stop Zosyn and vancomycin. (5) Hypertension Current Visit: Yes Status: Chronic Assessment and plan: Blood pressure remains elevated. We will add amlodipine to control blood pressure better Qualifiers: Hypertension type: essential hypertension Qualified Code(s): I10 - Essential (primary) hypertension (6) Morbid obesity with BMI of 45.0-49.9, adult Current Visit: Yes Status: Chronic (7) Obesity hypoventilation syndrome Current Visit: Yes Status: Chronic Assessment and plan: Continue O2 supplementation (8) Type 2 diabetes mellitus Current Visit: Yes Status: Chronic Assessment and plan: Blood sugars remain elevated. We will increase long-acting insulin coverage Qualifiers: Diabetes mellitus complication status: with hyperglycemia Diabetes mellitus group home insulin use: without group home use Qualified Code(s): E11.65 - Type 2 diabetes mellitus with hyperglycemia - Subjective Interval history: Patient continues to improve although she is still requiring high flow nasal cannula. Shortness of breath and cough are improving. No fever chills or night sweats reported overnight - Constitutional Vitals: Temp Pulse Resp BP Pulse Ox 98.1 F 69 20 167/82 91 01/03/17 16:42 01/03/17 16:42 01/03/17 16:42 01/03/17 16:42 01/03/17 16:42 General appearance: Present: mild distress, A&O X 3, morbidly obese, obese, answers questions appropriately - Eye Eye exam: Present: EOMI, PERRL, conjuntiva pink, sclera anicteric - Neck Neck exam general surgery: Present: supple, trachea midline. Absent: lymphadenopathy - Respiratory Respiratory exam: Present: decreased breath sounds (Decreased air entry bilaterally), prolonged expiratory phase. Absent: accessory muscle use, rales, wheezes - Cardiovascular Cardiovascular exam: Present: RRR, +S1, +S2. Absent: diastolic murmur, gallop, rubs, systolic murmur - GI/Abdominal GI/Abdominal exam: Present: normal bowel sounds, soft, no peritoneal signs. Absent: distended, tenderness - Extremities Exam Extremities exam: Present: warm, radial pulses palpable and symetrical. Absent : calf tenderness, cyanotic, pedal edema - Neurological Exam Neurological exam: Present: alert, oriented X3, no focal deficits. Absent: facial droop, speech deficit - Skin Skin exam: Present: dry, intact Internal Medicine: Result - Labs CBC & Chem 7: 01/03/17 03:43 01/03/17 03:43 Labs: Short CBC 01/03/17 Range/Units 03:43 WBC 7.1 (4.3-11.1) K/mcL Hgb 11.4 L (11.5-15.4) g/dL Hct 36.4 (35.3-44.9) % Plt Count 157 (140-400) K/mcL Neutrophils # 5.7 (1.6-8.9) K/mcL BMP 01/03/17 03:43 Sodium 140 Potassium 3.7 Chloride 99 Carbon Dioxide 30 H BUN 44 H Creatinine 1.27 H Glucose 244 H Calcium 9.4 - ABG Interpretation ABG results: PT/INR, D-dimer PT 15.4 Seconds (9.4-12.1) H 12/31/16 05:30 Consult Discharge Plan - Plan Referrals: Eduardo Hernandez Jr, MD [Primary Care Provider] - 01/09/17 11:00 am (Please follow up as schedule...) - Attending Attestation This document has been at least partially created by [employer] recognition technology by Dr. Bermudez. Errors in grammar, wording or other phrases may exist. If errors are found after the documentation is signed, they will be addressed individually in the addendum section of this document when appropriate.
[2017-01-03] MEDS: amLODIPine 5 MG TABLET PO SCH (18:00)
[2017-01-04] MEDS: ALPRAZolam 0.25 MG TABLET PO PRN (00:11)
[2017-01-04] MEDS: Ipratropium/Albuterol Neb 3 ML IH SCH ×4 (03:03→15:59)
[2017-01-04] MEDS: *HR* Heparin 5,000 UNIT/ML VIAL SQ SCH ×2 (05:39→16:45)
[2017-01-04] MEDS: Levofloxacin 750 MG/150 ML 750 MG/150 ML BAG IVPB SCH (05:39)
[2017-01-04] MEDS: Vitamin B Complex/Vit C/Vit E 1 EACH TABLET PO SCH (08:06)
[2017-01-04] MEDS: Metoprolol 100 MG TABLET PO SCH (08:06)
[2017-01-04] MEDS: Lactobacillus 1 EACH CAP.SPRINK PO SCH (08:06)
[2017-01-04] MEDS: predniSONE 20 MG TABLET PO SCH (08:06)
[2017-01-04] MEDS: Diltiazem CD (24hr) 180 MG CAPSULE PO SCH (08:06)
[2017-01-04] MEDS: Furosemide 20 MG TABLET PO SCH ×2 (08:07→16:47)
[2017-01-04] MEDS: Ascorbic Acid 500 MG TABLET PO SCH (08:07)
[2017-01-04] MEDS: amLODIPine 5 MG TABLET PO SCH (08:07)
[2017-01-04] MEDS: Aspirin 81 MG TAB.CHEW PO SCH (08:07)
[2017-01-04] MEDS: Cholecalciferol (D-3) 1,000 UNIT TABLET PO SCH (08:07)
[2017-01-04] MEDS: Insulin LISPRO 300 UNITS/3 ML VIAL SQ SCH ×3 (08:08→16:47)
[2017-01-04] MEDS: Nystatin POWDER 30 GM BOTTLE TP SCH ×2 (08:09)
[2017-01-04] MEDS: Insulin DETEMIR 100 UNIT/ML X5UNITS SQ SCH (08:09)
[2017-01-04] MEDS: hydrALAZINE 25 MG TABLET PO SCH ×2 (11:36→17:59)
--- NOTE | 2017-01-04 14:50 | Discharge Summary ---
Date of Encounter: 01/04/17 Time of Encounter: 14:42 - Discharge Diagnosis (1) Acute and chronic respiratory failure with hypoxia Priority: Primary Status: Acute (2) Acute exacerbation of chronic obstructive airways disease Priority: Secondary Status: Acute (3) Congestive heart failure Priority: Secondary Status: Chronic Qualifiers: Congestive heart failure type: diastolic Congestive heart failure chronicity: unspecified congestive heart failure chronicity Qualified Code(s) : I50.30 - Unspecified diastolic (congestive) heart failure (4) Hospital-acquired pneumonia Priority: Secondary Status: Acute (5) Hypertension Priority: Secondary Status: Chronic Qualifiers: Hypertension type: essential hypertension Qualified Code(s): I10 - Essential (primary) hypertension (6) Morbid obesity with BMI of 45.0-49.9, adult Priority: Secondary Status: Chronic (7) Obesity hypoventilation syndrome Priority: Secondary Status: Chronic (8) Type 2 diabetes mellitus Priority: Secondary Status: Chronic Qualifiers: Diabetes mellitus complication status: with hyperglycemia Diabetes mellitus shelter insulin use: without regional intermodal truck driver use Qualified Code(s): E11.65 - Type 2 diabetes mellitus with hyperglycemia (9) Pneumonia Priority: Secondary Status: Acute Qualifiers: Pneumonia type: due to Pneumococcus Laterality: right Lung location: upper lobe of lung Qualified Code(s): J13 - Pneumonia due to Streptococcus pneumoniae (10) Sepsis Priority: Secondary Status: Resolved Qualifiers: Sepsis type: Pneumococcus Qualified Code(s): A40.3 - Sepsis due to Streptococcus pneumoniae - Discharge Medications Prescriptions: hydrALAZINE [HydrALAZINE] 25 mg PO QID #120 tablet Lactobacillus [Culturelle] 1 each PO BID #30 cap.sprink levoFLOXacin [Levofloxacin] 750 mg PO DAILY #12 tablet predniSONE [PredniSONE] 10 mg PO DAILY 12 Days Home Medications: Albuterol Sulfate [Albuterol Inhaler] 2 puff IH Q4H PRN 08/23/16 [History] Amitriptyline [Elavil] 10 mg PO HS 08/23/16 [History] Ascorbate Calcium [Vitamin C] 500 mg PO DAILY 08/23/16 [History] Aspirin 81 mg PO DAILY 08/23/16 [History] Fish Oil/Dha/Epa [Fish Oil 1,200 mg Fish Oil] 1 cap PO DAILY 08/23/16 [History] Metoprolol [Lopressor] 100 mg PO BID 08/23/16 [History] Tiotropium [place] [Spiriva] 18 mcg IH DAILY 08/23/16 [History] Vitamin B Complex 1 cap PO DAILY 08/23/16 [History] hydrOXYzine HCl [Hydroxyzine HCl] 25 mg PO DAILY PRN 08/23/16 [History] Nystatin POWDER [Nystop] 1 appl TP BID #1 bottle 08/27/16 [Rx] metFORMIN [Glucophage] 500 mg PO BID #60 tablet 08/27/16 [Rx] Oxygen 2 l NS CONT 09/21/16 [History] Diltiazem CD (24hr) [Cardizem CD] 180 mg PO DAILY #30 cap.er.24h 10/14/16 [Rx] Furosemide [Lasix] 60 mg PO BID #60 tablet 10/14/16 [Rx] ALPRAZolam [Xanax 0.25 MG Tablet] 0.25 mg PO HS PRN 12/06/16 [History] Biotin 1 mg PO DAILY 12/06/16 [History] Budesonide/Formoterol 160/4.5 [Symbicort 160/4.5] 2 puff IH DAILY 12/06/16 [ History] Calcium Carbonate [Calcium] 500 mg PO DAILY 12/06/16 [History] Cholecalciferol (D-3) [Vitamin D] 1,000 unit PO DAILY 12/06/16 [History] Docusate [Colace] 100 mg PO DAILY PRN 12/06/16 [History] Ipratropium/Albuterol Neb [Duoneb] 3 ml IH QIDR 12/06/16 [History] Lovastatin 40 mg PO HS 12/06/16 [History] Multivit-Min/Iron/Folic/Lutein [Centrum Silver Women Tablet] 1 tab PO DAILY 05/15 [History] Multivits Min/Iron/FA/Herb#186 [Hair, Skin and Nails Caplet] 1 tab PO DAILY 05/15 [History] Vitamin E Acid Succinate [Vitamin E] 400 units PO DAILY 12/06/16 [History] Acetaminophen w/Cod 300-30 mg [Tylenol w/Codeine #3] 1 tab PO TID PRN 12/31/16 [ History] Lactobacillus [Culturelle] 1 each PO BID #30 cap.sprink 01/04/17 [Rx] hydrALAZINE [HydrALAZINE] 25 mg PO QID #120 tablet 01/04/17 [Rx] levoFLOXacin [Levofloxacin] 750 mg PO DAILY #12 tablet 01/04/17 [Rx] predniSONE [PredniSONE] 10 mg PO DAILY 12 Days 01/04/17 [Rx] Allergies/Adverse Reactions: Allergies No Known Allergies Allergy (Verified 08/23/16 19:46) Date of admission: 12/31/16 04:32 Primary care physician: Eduardo Hernandez Jr, MD Consults: 01/02/17 11:11 Consult to Occupational Therapy [CONS] Routine Comment: Evaluate, develop and implement POC Reason for Consult: Assess and treat Consult to Physical Therapy [CONS] Routine Comment: Evaluate, develop and implement POC Reason for Consult: Assess and treat Discharging clinician: Dimitri Bermudez Anticipated date of discharge: 01/04/17 - Patient Status Disposition: Home Health Service Functional capacity at discharge: independent ambulation Overall status at discharge: patient is back to baseline - Discharge Instructions Instructions: Heart Failure (DC), Acute Respiratory Distress Syndrome (DC), Chronic Obstructive Pulmonary Disease (DC), Pneumonia (DC) Follow Up With: Eduardo Hernandez Jr, MD [Primary Care Provider] - 01/09/17 11:00 am (Please follow up as schedule...) Additional Instructions: Follow-up with pulmonology for further management of his obesity hypoventilation /COPD - Diet and Activity Activity: increase activity as tolerated, wear oxygen at all times Diet: diabetic diet, low fat, low cholesterol, low salt diet Hospital course: Ms. Pollack is a 71 year old female sent with a history of COPD, CHF, chronic kidney disease diabetes, hypertension and hyperlipidemia who was admitted here with acute on chronic respiratory failure related to underlying pneumonia and COPD. She was treated with broad-spectrum antibiotics as she had been admitted to the hospital recently. Her sputum culture was positive for strep pneumoniae. Her blood cultures were negative. As such her antibiotic regimen was escalated. Patient was placed on levofloxacin and has slowly improved. She is on 3.5-4 L of oxygen at home to keep sats greater than 88%. She will continue to use the same amount of oxygen. She will follow up with pulmonology after discharge for further management of her COPD. Patient also has been having elevated blood pressure and has not been placed on hydralazine 25 mg 4 times daily in addition to her Cardizem and metoprolol. This can be further managed by her primary care provider. She will be discharged on levofloxacin to complete a 14 day treatment course. She will also be discharged on a prednisone taper. She was evaluated by physical therapy and recommended home physical therapy - Time Spent with Patient Total time spent providing and/or coordinating discharge services: Greater than 30 minutes (45 min) - Constitutional Vitals: Temp Pulse Resp BP Pulse Ox 97.9 F 54 16 167/55 87 01/04/17 11:18 01/04/17 11:31 01/04/17 11:39 01/04/17 11:18 01/04/17 11:39 General appearance: Present: mild distress, A&O X 3, morbidly obese, obese, answers questions appropriately - Neck Neck exam general surgery: Present: supple, trachea midline. Absent: lymphadenopathy - Respiratory Respiratory exam: Present: CTAB, prolonged expiratory phase, wheezes. Absent: accessory muscle use, rales, rhonchi - Cardiovascular Cardiovascular exam: Present: RRR, +S1, +S2. Absent: diastolic murmur, gallop, rubs, systolic murmur - Extremities Exam Extremities exam: Present: pedal edema (Trace), warm, radial pulses palpable and symetrical. Absent: calf tenderness, cyanotic - Neurological Exam Neurological exam: Present: oriented X3, no focal deficits. Absent: facial droop, speech deficit - Attending Attestation This document has been at least partially created by [employer] voice recognition technology by Dr. Bermudez. Errors in grammar, wording or other phrases may exist. If errors are found after the documentation is signed, they will be addressed individually in the addendum section of this document when appropriate.
--- NOTE | 2017-01-04 15:04 | Physician Discharge Referral ---
Home Health/Hosp Referral Info Transfer to: Home Health Provider in Charge Post Discharge: PCP - Diagnosis (1) Acute and chronic respiratory failure with hypoxia Priority: Primary Status: Acute (2) Acute exacerbation of chronic obstructive airways disease Priority: Secondary Status: Acute (3) Congestive heart failure Priority: Secondary Status: Chronic (4) Hospital-acquired pneumonia Priority: Secondary Status: Acute (5) Hypertension Priority: Secondary Status: Chronic (6) Morbid obesity with BMI of 45.0-49.9, adult Priority: Secondary Status: Chronic (7) Obesity hypoventilation syndrome Priority: Secondary Status: Chronic (8) Type 2 diabetes mellitus Priority: Secondary Status: Chronic (9) Pneumonia Priority: Secondary Status: Acute - Respiratory Orders Oxygen / L per min (2-4 L/min; keep sats greater than 88%) Smoking Cessation: Smoking cessation has been advised. For more information, call the [place] Tobacco Quit Line at 5-808-WIEP-NOW. - Diet/Nutrition Diet/Nutrition Orders: Cardiac, No Concentrated Sweets (Cardiac) - Activity Activity Orders: Walker - Services Needed Following services are medically necessary services: Nursing, Physical Therapy, Occupational Therapy - Transfer Medications Prescriptions: hydrALAZINE [HydrALAZINE] 25 mg PO QID #120 tablet Lactobacillus [Culturelle] 1 each PO BID #30 cap.sprink levoFLOXacin [Levofloxacin] 750 mg PO DAILY #12 tablet predniSONE [PredniSONE] 10 mg PO DAILY 12 Days Home Medications: Albuterol Sulfate [Albuterol Inhaler] 2 puff IH Q4H PRN 08/23/16 [History] Amitriptyline [Elavil] 10 mg PO HS 08/23/16 [History] Ascorbate Calcium [Vitamin C] 500 mg PO DAILY 08/23/16 [History] Aspirin 81 mg PO DAILY 08/23/16 [History] Fish Oil/Dha/Epa [Fish Oil 1,200 mg Fish Oil] 1 cap PO DAILY 08/23/16 [History] Metoprolol [Lopressor] 100 mg PO BID 08/23/16 [History] Tiotropium [place] [Spiriva] 18 mcg IH DAILY 08/23/16 [History] Vitamin B Complex 1 cap PO DAILY 08/23/16 [History] hydrOXYzine HCl [Hydroxyzine HCl] 25 mg PO DAILY PRN 08/23/16 [History] Nystatin POWDER [Nystop] 1 appl TP BID #1 bottle 08/27/16 [Rx] metFORMIN [Glucophage] 500 mg PO BID #60 tablet 08/27/16 [Rx] Oxygen 2 l NS CONT 09/21/16 [History] Diltiazem CD (24hr) [Cardizem CD] 180 mg PO DAILY #30 cap.er.24h 10/14/16 [Rx] Furosemide [Lasix] 60 mg PO BID #60 tablet 10/14/16 [Rx] ALPRAZolam [Xanax 0.25 MG Tablet] 0.25 mg PO HS PRN 12/06/16 [History] Biotin 1 mg PO DAILY 12/06/16 [History] Budesonide/Formoterol 160/4.5 [Symbicort 160/4.5] 2 puff IH DAILY 12/06/16 [ History] Calcium Carbonate [Calcium] 500 mg PO DAILY 12/06/16 [History] Cholecalciferol (D-3) [Vitamin D] 1,000 unit PO DAILY 12/06/16 [History] Docusate [Colace] 100 mg PO DAILY PRN 12/06/16 [History] Ipratropium/Albuterol Neb [Duoneb] 3 ml IH QIDR 12/06/16 [History] Lovastatin 40 mg PO HS 12/06/16 [History] Multivit-Min/Iron/Folic/Lutein [Centrum Silver Women Tablet] 1 tab PO DAILY 05/15 [History] Multivits Min/Iron/FA/Herb#186 [Hair, Skin and Nails Caplet] 1 tab PO DAILY 05/15 [History] Vitamin E Acid Succinate [Vitamin E] 400 units PO DAILY 12/06/16 [History] Acetaminophen w/Cod 300-30 mg [Tylenol w/Codeine #3] 1 tab PO TID PRN 12/31/16 [ History] Lactobacillus [Culturelle] 1 each PO BID #30 cap.sprink 01/04/17 [Rx] hydrALAZINE [HydrALAZINE] 25 mg PO QID #120 tablet 01/04/17 [Rx] levoFLOXacin [Levofloxacin] 750 mg PO DAILY #12 tablet 01/04/17 [Rx] predniSONE [PredniSONE] 10 mg PO DAILY 12 Days 01/04/17 [Rx] Allergies/Adverse Reactions: Allergies No Known Allergies Allergy (Verified 08/23/16 19:46) Certification: Further, I certify that my clinical findings support that this patient is homebound (i.e. absences from home require considerable and taxing effort and are for medical reasons or hoahaoism services or infrequently or short duration when for other reasons) because: Homebound Reason: Patient requires assistance of a person or device to safely leave home, Severity of cardiac or pulmonary status limits activity tolerance Attestation: My signature below is to certify that this patient is under my care and that I, or nurse practitioner, or a physician's assistant product manager working with me, has a face-to -face encounter with this patient.
[2017-01-04 16:11] VITALS: BP 171/73
== END 2017-01-04 18:50 | disposition home health service (06) | DRG 871 ==
LOC: 2ANU 23:50 → EMEROO 23:50 → SUATTDRO 12-31 04:32 → 2ANU 12-31 04:32
PROVIDERS: ADMIT Internal Medicine; ATTEND Internal Medicine

== ENCOUNTER 2017-06-04 20:32 | Inpatient (IN) ==
[2017-06-04] MEDS ORDERED: Ipratropium/Albuterol Neb 3 ML IH ONE (20:35)
[2017-06-04] MEDS ORDERED: methylPREDNISolone 125 MG/2 ML VIAL IVP ONE (20:35)
--- NOTE | 2017-06-04 20:44 | Emergency Department Note ---
Disposition Clinical Impression: Community acquired pneumonia Qualifiers: Laterality: unspecified laterality Qualified Code(s): J18.9 - Pneumonia, unspecified organism Disposition: Admitted As Inpatient Condition: Good Referrals: Eduardo Hernandez Jr, MD [Primary Care Provider] - Forms: ED Satisfaction Letter SOB HPI - General Chief Complaint: ED Shortness of Breath/Dyspnea Stated Complaint: Shortness of Breath x 2 days Time Seen by Provider: 06/04/17 20:35 Source: patient Mode of arrival: EMS Limitations: no limitations Nursing Notes Reviewed: Yes Vital Signs Reviewed: Yes - History of Present Illness 71-year-old female history of oxygen-dependent COPD wearing 3 L by concentrator continuously who presents to the ER via EMS due to shortness of breath. Patient states she has felt short of breath for 2 days. She has had a cough with white frothy sputum. No fevers at home. No chest pain. States she has had pneumonia several times in the past requiring admission. She denies any nausea vomiting or diarrhea. She was found to be 75% upon EMS arrival. Bump to 85% after DuoNeb treatment. She arrives feeling much better. No other complaints. Pt Subjective Complaint: shortness of breath, cough Onset (ago): day(s) Context: recent illness Severity: moderate Consistency/Duration: constant Improves with: nothing Worsens with: nothing Known history of: COPD Associated symptoms: Reports: cough, sputum production. Denies: chest pain, fever Treatment prior to arrival: oxygen, bronchodilator Cough present: Yes Cough Description: Involuntary Cough Frequency: Intermittent Sputum production: No Sputum Amount: None - Related Data Home oxygen amount: 3 liters Home Medications Medication Instructions Recorded Confirmed Albuterol Sulfate [Albuterol 2 puff IH Q4H PRN 08/23/16 12/31/16 Inhaler] Amitriptyline [Elavil] 10 mg PO HS 08/23/16 12/31/16 Ascorbate Calcium [Vitamin C] 500 mg PO DAILY 08/23/16 12/31/16 Aspirin 81 mg PO DAILY 08/23/16 12/31/16 Fish Oil/Dha/Epa [Fish Oil 1,200 1 cap PO DAILY 08/23/16 12/31/16 mg Fish Oil] Metoprolol [Lopressor] 100 mg PO BID 08/23/16 12/31/16 Tiotropium [place] [Spiriva] 18 mcg IH DAILY 08/23/16 12/31/16 Vitamin B Complex 1 cap PO DAILY 08/23/16 12/31/16 hydrOXYzine HCl [Hydroxyzine HCl] 25 mg PO DAILY PRN 08/23/16 12/31/16 Oxygen 2 l NS CONT 09/21/16 12/31/16 ALPRAZolam [Xanax 0.25 MG Tablet] 0.25 mg PO HS PRN 12/06/16 12/31/16 Biotin 1 mg PO DAILY 12/06/16 12/31/16 Budesonide/Formoterol 160/4.5 2 puff IH DAILY 12/06/16 12/31/16 [Symbicort 160/4.5] Calcium Carbonate [Calcium] 500 mg PO DAILY 12/06/16 12/31/16 Cholecalciferol (D-3) [Vitamin D] 1,000 unit PO DAILY 12/06/16 12/31/16 Docusate [Colace] 100 mg PO DAILY PRN 12/06/16 12/31/16 Ipratropium/Albuterol Neb [Duoneb] 3 ml IH QIDR 12/06/16 12/31/16 Lovastatin 40 mg PO HS 12/06/16 12/31/16 Multivit-Min/Iron/Folic/Lutein 1 tab PO DAILY 12/06/16 12/31/16 [Centrum Silver Women Tablet] Multivits Min/Iron/FA/Herb#186 1 tab PO DAILY 12/06/16 12/31/16 [Hair, Skin and Nails Caplet] Vitamin E Acid Succinate [Vitamin 400 units PO DAILY 12/06/16 12/31/16 E] Acetaminophen w/Cod 300-30 mg 1 tab PO TID PRN 12/31/16 12/31/16 [Tylenol w/Codeine #3] Previous Rx's Medication Instructions Recorded Nystatin POWDER [Nystop] 1 appl TP BID #1 bottle 08/27/16 metFORMIN [Glucophage] 500 mg PO BID #60 tablet 08/27/16 Diltiazem CD (24hr) [Cardizem CD] 180 mg PO DAILY #30 cap.er.24h 10/14/16 Furosemide [Lasix] 60 mg PO BID #60 tablet 10/14/16 Lactobacillus [Culturelle] 1 each PO BID #30 cap.sprink 01/04/17 hydrALAZINE [HydrALAZINE] 25 mg PO QID #120 tablet 01/04/17 levoFLOXacin [Levaquin] 750 mg PO DAILY #12 tablet 01/04/17 predniSONE [PredniSONE] 10 mg PO DAILY 12 Days tablet 01/04/17 Allergies Allergy/AdvReac Type Severity Reaction Status Date / Time No Known Allergies Allergy Verified 08/23/16 19:46 All systems ED: reviewed and negative except as stated. Constitutional: Denies: fever Cardiovascular: Denies: chest pain Respiratory: Reports: cough, dyspnea, sputum production Gastrointestinal: Denies: abdominal pain, nausea, vomiting Past Medical History - Past Medical History Attestation: Yes The following information was validated with the patient. Source: patient Medical history: Reports: CHF, COPD, DVT, diabetes, hyperlipidemia, hypertension Surgical history: Reports: appendectomy, Psychiatric history: Reports: anxiety, depression - Social History Smoking Status: Former smoker Smokeless Tobacco Status: No Alcohol use: Reports: none Drug use: Reports: none Physical Exam - General Limitations: no limitations General appearance: alert, in no apparent distress - Head Head exam: atraumatic, normocephalic - Eye Eye exam: Present: normal appearance - ENT ENT exam: normal exam - Neck Neck exam: Present: normal inspection - Chest Chest inspection: Present: normal inspection, symmetric chest wall rise - Respiratory Respiratory exam: Present: prolonged expiratory phase, other (Diminished breath sounds bilaterally). Absent: respiratory distress - Cardiovascular Cardiovascular exam: Present: regular rate, normal rhythm, normal heart sounds - Abdominal Exam Abdominal exam: Present: soft, Non-Tender. Absent: tenderness - Extremities Exam Extremities exam: Present: normal inspection, full ROM - Expanded Upper Extremity Exam Shoulder exam: Present: normal inspection, full ROM Arm exam: Present: normal inspection, full ROM Elbow exam: Present: normal inspection, full ROM Forearm/Wrist exam: Present: normal inspection, full ROM Hand exam: Present: normal inspection, full ROM - Expanded Lower Extremity Exam Hip/Pelvis exam: Present: normal inspection, full ROM Upper leg exam: Present: normal inspection, full ROM Knee exam: Present: normal inspection, full ROM Lower leg exam: Present: normal inspection, full ROM Ankle exam: Present: normal inspection, full ROM Foot/toe exam: Present: normal inspection, full ROM - Neurological Exam Neurological exam: Present: alert - Psychiatric Psychiatric exam: Present: normal affect - Skin Skin exam: Present: warm, dry, intact Course Course Narrative: Patient seen and examined at time of arrival. We will order a DuoNeb treatment as well as Solu-Medrol. EKG, chest x-ray and labs including troponin and BNP. - Reevaluation(s) Reevaluation #1: Patient placed on have due to hypoxia here. Saturations improved. Discussed results of imaging or labs. We will start her on Levaquin as she was pansensitive from Streptococcus pneumonia. Vital Signs Temperature 98.2 F 06/04/17 20:34 Pulse Rate 124 06/04/17 20:34 Respiratory Rate 24 06/04/17 20:34 Blood Pressure 120/84 06/04/17 20:34 O2 Sat by Pulse Oximetry 72 06/04/17 20:34 Temperature 98.2 F 06/04/17 20:34 Pulse Rate 124 06/04/17 20:34 Respiratory Rate 25 06/04/17 21:08 Blood Pressure 120/84 06/04/17 20:34 O2 Sat by Pulse Oximetry 100 06/04/17 21:08 Oxygen Delivery Oxygen Delivery Nasal Cannula Shortness of Breath/Dyspnea - [facility] Narrative Medical decision making narrative: 71-year-old female presents to the ER due to shortness of breath and cough. Symptoms for 2 days. She is oxygen dependent at home. She was noted to be hypoxic here and placed on BiPAP. X-ray showing concern for lower lobe pneumonia. White count slightly elevated at 13. Her most recent pneumonia culture shows pansensitive for streptococcus pneumonia. Patient treated with Levaquin as well as a liter of fluids. Cultures and lactate obtained. Admitted to the hospitalist service. - Lab Data Lab results reviewed: Yes I reviewed the patient's lab results. Result diagrams: 06/04/17 21:02 06/04/17 21:02 Lab Results 06/04/17 06/04/17 06/04/17 Range/Units 21:02 21:02 21:02 WBC 13.5 H (4.3-11.1) K/mcL RBC 4.88 (3.82-4.97) M/mcL Hgb 12.2 (11.5-15.4) g/dL Hct 40.1 (35.3-44.9) % MCV 82.2 L (83.0-100.0) fL MCH 25.0 L (28.0-33.3) pg MCHC 30.4 L (31.6-35.5) g/dL RDW 17.9 H (11.5-14.5) % Plt Count 248 (140-400) K/mcL MPV 10.1 (9.4-12.4) fL Immature Gran % 0.4 (0-4) % Seg Neutrophils % 77.9 % Lymphocytes % 14.9 % Monocytes % 5.1 % Eosinophils % 1.3 % Basophils % 0.4 % Neutrophils # 10.5 H (1.6-8.9) K/mcL Lymphocytes # 2.0 (0.6-4.6) K/mcL Monocytes # 0.7 (0.0-1.3) K/mcL Eosinophils # 0.2 (0.0-0.6) K/mcL Basophils # 0.1 (0.0-0.2) K/mcL Sodium 142 (136-145) mEq/L Potassium 3.1 L (3.5-4.5) mEq/L Chloride 96 L (98-109) mEq/L Carbon Dioxide 31 H (19-29) mEq/L BUN 18 (7-20) mg/dL Creatinine 0.89 (0.57-1.11) mg/dL Est GFR ( Amer) > 60 (> 60) Est GFR (Non-Af Amer) > 60 (> 60) BUN/Creatinine Ratio 20 (6-26) Glucose 132 H (70-99) mg/dL Calculated Osmolality 298 (280-300) Lactic Acid (0.5-2.2) mmol/L Calcium 9.4 (8.6-10.8) mg/dL Troponin I 0.01 (0-0.03) ng/mL B-Natriuretic Peptide (0-100) pg/mL 06/04/17 06/04/17 Range/Units 21:02 21:45 WBC (4.3-11.1) K/mcL RBC (3.82-4.97) M/mcL Hgb (11.5-15.4) g/dL Hct (35.3-44.9) % MCV (83.0-100.0) fL MCH (28.0-33.3) pg MCHC (31.6-35.5) g/dL RDW (11.5-14.5) % Plt Count (140-400) K/mcL MPV (9.4-12.4) fL Immature Gran % (0-4) % Seg Neutrophils % % Lymphocytes % % Monocytes % % Eosinophils % % Basophils % % Neutrophils # (1.6-8.9) K/mcL Lymphocytes # (0.6-4.6) K/mcL Monocytes # (0.0-1.3) K/mcL Eosinophils # (0.0-0.6) K/mcL Basophils # (0.0-0.2) K/mcL Sodium (136-145) mEq/L Potassium (3.5-4.5) mEq/L Chloride (98-109) mEq/L Carbon Dioxide (19-29) mEq/L BUN (7-20) mg/dL Creatinine (0.57-1.11) mg/dL Est GFR ( Amer) (> 60) Est GFR (Non-Af Amer) (> 60) BUN/Creatinine Ratio (6-26) Glucose (70-99) mg/dL Calculated Osmolality (280-300) Lactic Acid 1.8 (0.5-2.2) mmol/L Calcium (8.6-10.8) mg/dL Troponin I (0-0.03) ng/mL B-Natriuretic Peptide 70 (0-100) pg/mL - Radiology Data Radiology results reviewed: Yes I reviewed the patient's radiology results. Chest X-Ray 06/04/17 20:35 IMPRESSION: Airspace disease in the lower lobes bilaterally could represent pneumonia with a left-sided pleural effusion D/ / 06/04/2017 21:19:15 Gilbert Newman MD / ladonna Interpreting Provider: Gilbert Newman MD - EKG Data EKG attestation: Yes I reviewed and interpreted this EKG. EKG results narrative: EKG demonstrates multifocal atrial tachycardia with a rate of 105. Left axis deviation. Normal intervals. Normal R-wave progression. No gross ST elevations or depressions. No acute ischemic findings. Critical Care Time Critical Care Time: Yes Total Critical Care Time: 45 Attestation: Critical care performed: Time is exclusive of separately billable procedures. Time includes: direct patient care, patient reassessment, coordination of patient care, interpretation of data (laboratory data, radiology data, and respiratory data), review of patient's medical records, medical consultation and documentation of patient care. Procedures included in critical care time: Procedures excluded from critical care time: Ricarda - Ricarda Situation: Demographics, MOA Background: Presenting Complaint, Relevant PMH, Meds, & Allergies Assessment: Vital Signs, Course and respsone to treatment, Exam Concerns, Patient/Family Expectation, Pertinant Lab Results Recommendation: Barrier(s) to disposition, Recommendation based on pending studies, treatments, or consults Ricarda Report Given to: Dr. Iwona Chowdary Repor Time: 22:20 Attestation Statement - Attestation Attestation: I, Fabrizio Zabala MD, personally evaluated this patient and discussed their management with the resident physician. I reviewed the resident's note and agree with the documented findings, medical decision making, and plan of care. 71-year-old female with history of COPD presents to the emergency department with a complaint of increased cough and shortness of breath over the past few days. No fever. No chest pain. Some white sputum production. Patient does have home oxygen which she uses as needed. She also takes nebulizer treatments at home. Patient continues to smoke. EMS reports when they arrived her oxygen was on and her O2 sat was 75%. She took a breathing treatment at home just before EMS arrived and EMS also gave her a nebulizer treatment in route to the hospital. Said her breathing feels better however when placed back on her oxygen by nasal cannula her oxygen saturation dropped back to 75% here in the emergency department. On examination patient is a well-developed well-nourished elderly female in no acute distress. She is alert and oriented 3. There is no cyanosis or diaphoresis. Chest is nontender to palpation. Breath sounds are decreased bilaterally with no definite rales or wheezes noted. Heart regular rate and rhythm. Abdomen soft and nontender with normal bowel sounds. Labs reviewed. EKG shows a multifocal atrial tachycardia is with a heart rate 105. Chest x-ray shows airspace disease in the lower lobes bilaterally could represent pneumonia with a left-sided pleural effusion. Blood cultures obtained. Patient received DuoNeb and Solu-Medrol. She was placed on BiPAP. The hospitalist, Dr. Bustillo, was consulted and accepted admission of the patient.
[2017-06-04 21:07] LABS: Basophils # 0.1 K/mcL (0.0-0.2); Basophils % 0.4 %; Eosinophils # 0.2 K/mcL (0.0-0.6); Eosinophils % 1.3 %; Hematocrit 40.1 % (35.3-44.9); Hemoglobin 12.2 g/dL (11.5-15.4); Immature Granulocytes % 0.4 % (0-4); Lymphocytes % 14.9 %; Mean Corpuscular HGB Conc 30.4 g/dL (31.6-35.5); Mean Corpuscular Volume 82.2 fL (83.0-100.0); Mean Platelet Volume 10.1 fL (9.4-12.4); Monocytes # 0.7 K/mcL (0.0-1.3); Monocytes % 5.1 %; Neutrophils # 10.5 K/mcL (1.6-8.9); Platelet Count 248 K/mcL (140-400); Red Blood Count 4.88 M/mcL (3.82-4.97); Red Cell Distribution Width 17.9 % (11.5-14.5); Segmented Neutrophils % 77.9 %
[2017-06-04 21:19] LABS: BUN/Creatinine Ratio 20 (6-26); Blood Urea Nitrogen 18 mg/dL (7-20); Calcium 9.4 mg/dL (8.6-10.8); Carbon Dioxide 31 mEq/L (19-29); Chloride 96 mEq/L (98-109); Glucose 132 mg/dL (70-99); Osmolality,Calculated 298 (280-300); Potassium 3.1 mEq/L (3.5-4.5); Sodium 142 mEq/L (136-145); eGFR For African Americans > 60 (> 60); eGFR For Non-African Americans > 60 (> 60)
[2017-06-04] MEDS ORDERED: 0.9 % Sodium Chloride 1,000 ML IVC ONE (21:54)
[2017-06-04] MEDS ORDERED: Levofloxacin 750 MG/150 ML 750 MG/150 ML BAG IVPB ONE (21:58)
[2017-06-05] MEDS ORDERED: NON-FORMULARY MEDICATION 1 EACH EACH (Pantoprazole Sodium [Pantoprazole Sodium] 40 MG) PO SCH (09:15)
[2017-06-05] MEDS ORDERED: Dextrose Gel 15 GM PO PRN ×2 (09:18)
[2017-06-05] MEDS ORDERED: D5% in Water 1,000 ML IVC PRN (09:18)
[2017-06-05] MEDS ORDERED: *HR* Dextrose 50 % in Water (Syg) 50 ML SYRINGE IVP PRN (09:18)
[2017-06-05] MEDS ORDERED: Naloxone 0.4 MG/ML INJ IVP PRN (09:20)
[2017-06-05] MEDS ORDERED: *HR* HYDROcodone/Acet 5/325 mg TABLET PO PRN (09:20)
[2017-06-05] MEDS ORDERED: Ondansetron 4 MG/2 ML VIAL IVP PRN (09:20)
[2017-06-05] MEDS ORDERED: *HR* Morphine 2 MG/ML SYRINGE IVP PRN (09:20)
[2017-06-05] MEDS ORDERED: Albuterol 2.5 MG/3 ML NEBULIZER IH PRN (09:25)
--- NOTE | 2017-06-05 09:31 | Internal Med History&Physical ---
Date of Encounter: 06/05/17 Time of Encounter: 09:30 Assessment and Plan (1) Congestive heart failure Current visit: No Status: Chronic No clear evidence of acute exacerbation. Continue home dose of Lasix. Daily weights. Sodium restricted diet. Qualifiers: Congestive heart failure type: diastolic Congestive heart failure chronicity: chronic Qualified Code(s): I50.32 - Chronic diastolic (congestive ) heart failure (2) Type 2 diabetes mellitus Current visit: No Status: Chronic Hold metformin. Start insulin sliding scale and basal coverage. Qualifiers: Diabetes mellitus complication status: with hyperglycemia Diabetes mellitus alf insulin use: without alf use Qualified Code(s): E11.65 - Type 2 diabetes mellitus with hyperglycemia (3) DVT prophylaxis Current visit: No Status: Acute Lovenox. high risk for DVT due to decreaseobility (4) Morbid obesity with BMI of 45.0-49.9, adult Current visit: No Status: Chronic outpatient weight loss regimen. (5) Acute and chronic respiratory failure with hypoxia Current visit: No Status: Acute urrently on nonrebreather [id number] We will titrate her down to high flow nasal cannula. BiPAP as needed. Consult pulmonary service. (6) COPD (chronic obstructive pulmonary disease) Current visit: No Status: Acute Decreased bilateral breath sounds w scatteredexpiratory wheezes and worsening hypoxia consistent wCOPD exacerbation. we will treat with supplemental oxygen, iV steroids, BiPAP as needed. We will consult pulmonary service. Qualifiers: COPD type: COPD with acute exacerbation Qualified Code(s): J44.1 - Chronic obstructive pulmonary disease with (acute) exacerbation (7) Community acquired pneumonia Current visit: Yes Status: Acute right lower lobe infiltrate.elevated white count and hypoxia. Follow-up blood cultures. We will treat with Zosyn and L Levaquin. I am concerned for Pseudomonas due to history of COPD and recurrent pneumonias. Obtain sputum culture. Respiratory infection panel. Obtain ABG stat. Qualifiers: Laterality: right Lung location: lower lobe of lung Qualified Code(s): J18.1 - Lobar pneumonia, unspecified organism (8) Sepsis Current visit: No Status: Resolved she meets criteria for sepsis with achycardia, elevated white blood c count and pneumonia. Lactic acid was normal. she currently does not require noninvasive positive pressure ventilation. Severe sepsis is ruled out at this time. follow-up blood cultures. We will treat with IV antibiotics. Qualifiers: Sepsis type: sepsis due to unspecified organism Qualified Code(s): A41.9 - Sepsis, unspecified organism Internal Medicine - H&P: HPI Chief complaint: Shortness of breath Admitted From: Emergency Dept Plans for Post Hospital Care: Home History of present illness: Ms. Pollack is a 71 year old female with past medical history significant for morbid obesity, hypertension, COPD with chronic hypoxic respiratory failure on home oxygen therapy and nighttime BiPAP was brought to the hospital for shortness of breath and generalized weakness. Per the patient's daughter present at bedside the patient has been lethargic for the last 24 hours, symptoms were severe and associated with shortness of breath which was increased from her a sling. The patient reports an cough associated with clear sputum, denies chest pain denies subjective fevers, denies body aches, denies nausea vomiting and diarrhea. She uses oxygen by nasal cannula during the day at 3 L/m and in spite of increasing oxygen delivery her oxygen saturation remained in the low 80s which prompted her presentation to the hospital. Review of systems positive for skin lesions on upper extremities identified as skin cancer, positive for chronic shortness of breath, positive for chronic constipation. Family history positive for leukemia the patient's father and lung cancer in multiple family members including siblings and mother. Social history: Former smoker. Quit more than 5 years ago. Lives with family members. Past Med Surg Social Fam HX - Past Medical History Medical history: CHF, COPD, DVT, diabetes, hyperlipidemia, hypertension Psychiatric history: anxiety, depression - Past Surgical History Surgical History: appendectomy, - Social History Smoking Status: Former smoker Smokeless Tobacco Status: No Alcohol use: none Drug use: none - Family History Mother Family Member Ethnicity: Non- Living Status: Hx Family Cardiac Disorders: Yes Hx Family Respiratory Disorders: Yes Hx Family Cancer: Yes Hx Family GI Disorders: No Hx Family Endocrine Disorder: No Hx Family Neuromuscular Disorders: No Hx Family Neurologic Disorders: No Hx Family HEENT Disorders: No Hx Family Autoimmune Disorders: No Father Living Status: Hx Family Cancer: Yes Internal Medicine - H&P: Meds Albuterol Sulfate [Albuterol Inhaler] 2 puff IH Q4H PRN 08/23/16 [History] Amitriptyline [Elavil] 10 mg PO HS 08/23/16 [History] Ascorbate Calcium [Vitamin C] 500 mg PO DAILY 08/23/16 [History] Tiotropium [place] [Spiriva] 18 mcg IH DAILY 08/23/16 [History] Vitamin B Complex 1 cap PO DAILY 08/23/16 [History] Nystatin POWDER [Nystop] 1 appl TP BID #1 bottle 08/27/16 [Rx] Oxygen 2 l NS CONT 09/21/16 [History] Diltiazem CD (24hr) [Cardizem CD] 180 mg PO DAILY #30 cap.er.24h 10/14/16 [Rx] Furosemide [Lasix] 60 mg PO BID #60 tablet 10/14/16 [Rx] Budesonide/Formoterol 160/4.5 [Symbicort 160/4.5] 2 puff IH BID 12/06/16 [ History] Calcium Carbonate [Calcium] 500 mg PO DAILY 12/06/16 [History] Cholecalciferol (D-3) [Vitamin D] 1,000 unit PO DAILY 12/06/16 [History] Docusate [Colace] 100 mg PO DAILY PRN 12/06/16 [History] Ipratropium/Albuterol Neb [Duoneb] 3 ml IH QID PRN 12/06/16 [History] Multivit-Min/Iron/Folic/Lutein [Centrum Silver Women Tablet] 1 tab PO DAILY 05/15 [History] Multivits Min/Iron/FA/Herb#186 [Hair, Skin and Nails Caplet] 1 tab PO DAILY 05/15 [History] Vitamin E Acid Succinate [Vitamin E] 400 unit PO DAILY 12/06/16 [History] Acetaminophen w/Cod 300-30 mg [Tylenol w/Codeine #3] 1 tab PO TID PRN 12/31/16 [ History] Lactobacillus [Culturelle] 1 each PO BID #30 cap.sprink 01/04/17 [Rx] hydrALAZINE [HydrALAZINE] 25 mg PO QID #120 tablet 01/04/17 [Rx] Atorvastatin Calcium [Lipitor] 20 mg PO BID 06/04/17 [History] Febuxostat [Uloric] 40 mg PO DAILY 06/04/17 [History] Ferrous Gluconate 324 mg PO BID 06/04/17 [History] GuaiFENesin ER [Mucinex] 600 mg PO BID 06/04/17 [History] Metoprolol [Lopressor] 50 mg PO BID 06/04/17 [History] [place]-3 Fatty Acids [Fish Oil] 300 mg PO DAILY 06/04/17 [History] Pantoprazole Sodium 40 mg PO BID 06/04/17 [History] metFORMIN [Glucophage] 1,000 mg PO BID 06/04/17 [History] predniSONE [PredniSONE] 10 mg PO Q48H 06/04/17 [History] 3 Allergy/AdvReac Type Severity Reaction Status Date / Time No Known Allergies Allergy Verified 08/23/16 19:46 All Systems PM: A 10-system review of systems was performed and is negative for pertinent findings except as documented above in the HPI. - Constitutional Vitals: Temp Pulse Resp BP Pulse Ox 98.3 F 74 26 166/68 97 06/05/17 07:29 06/05/17 07:29 06/05/17 07:29 06/05/17 07:29 06/05/17 07:29 General appearance: Present: A&O X 3, no acute distress, obese - Eye Eye exam: Present: PERRL, conjuntiva pink, sclera anicteric Pupils: Present: PERRL - Neck Neck exam general surgery: Present: supple, trachea midline. Absent: lymphadenopathy - Respiratory Respiratory exam: Present: decreased breath sounds, rales, rhonchi. Absent: accessory muscle use, wheezes - Cardiovascular Cardiovascular exam: Present: irregular rhythm, +S1, +S2. Absent: diastolic murmur, gallop, rubs, systolic murmur - GI/Abdominal GI/Abdominal exam: Present: normal bowel sounds, soft, no peritoneal signs. Absent: distended, tenderness - Extremities Exam Extremities exam: Present: warm, radial pulses palpable and symmetrical. Absent : calf tenderness, cyanotic, pedal edema - Neurological Exam Neurological exam: Present: CN II-XII intact, oriented X3, no focal deficits. Absent: pronater drift, facial droop, speech deficit - Skin Skin exam: Present: dry, intact Internal Med - H&P Results - Labs CBC & Chem 7: 06/04/17 21:02 06/04/17 21:02 - Impressions Chest x-ray reviewed by myself shows bibasilar infiltrates with small pleural effusion on the right consistent with possible pneumonia. Compared to the chest x-ray done in December 2016 the right lower lobe infiltrate has resolved. There is new haziness at the right base.
[2017-06-05] MEDS: methylPREDNISolone 125 MG/2 ML VIAL IVP SCH ×3 (10:36→23:28)
[2017-06-05] MEDS: Pantoprazole 40 MG VIAL IVP SCH (10:36)
[2017-06-05] MEDS: Insulin DETEMIR 100 UNIT/ML X5UNITS SQ SCH ×2 (10:36→23:27)
[2017-06-05] MEDS: Piperacillin/Tazobactam 3.375 GM in D5% in Water 50 ML IVPB SCH ×2 (10:37→15:50)
[2017-06-05 11:26] LABS: Hemoglobin A1C 6.9 %
--- NOTE | 2017-06-05 11:26 | Pulmonology Consult Note ---
Date of Encounter: 06/05/17 Time of Encounter: 11:22 Assessment and Plan (1) Acute and chronic respiratory failure with hypoxia Current Visit: No Status: Acute 71-year-old woman with multiple respiratory illnesses including COPD heart failure obesity hypoventilation syndrome and heart failure with preserved ejection fraction complicated by atrial fibrillation who presented with acute hypoxemic respiratory failure I suspect this is multifactorial but given increase in white count likely related to acute infectious problem with mild COPD exacerbation and some degree of volume overload. Generally speaking today she looks like she is headed in the right direction from her presentation of oxygen saturation in the 70s requiring BiPAP. This may have all been a reflection of an acute exacerbation of COPD from infectious pneumonia and she is responding to treatment thus far. At this point I would try high flow nasal cannula to keep oxygen saturation greater than 88% around 92% she is currently in the high 90s She would actually benefit from being out of bed in the chair it looks like her respiratory mechanics are improving markedly which would be anticipated given her degree of obesity and suspected component of atelectasis while in bed Is reasonable to continue noninvasive positive pressure ventilation if increased work of breathing or further desaturation or if ABG shows significant hypercarbia (2) Acute exacerbation of chronic obstructive airways disease Current Visit: No Status: Acute Although no wheezing on examination today this may be reflection of the IVs steroids that she is already received. I would transition to oral prednisone 40 mg daily to complete a 5 day course based upon clinical response. Schedule bronchodilators (duo nebs) every 6 hours with albuterol treatments every hour as needed. She may be a candidate in the outpatient setting for Daliresp given severity of COPD and frequent exacerbations. Should also likely benefit from pulmonary rehabilitation it appears that this was being evaluated in the outpatient basis but she has not started this as of yet. Her overall prognosis given multiple exacerbations for similar presentations in multiple respiratory conditions is poor. Given recurrent respiratory infections I would stop inhaled corticosteroid at discharge and maintain patient on long-acting beta agonist and long-acting muscarinic agent in combination form if possible (3) Diastolic heart failure Current Visit: No Status: Acute Despite BNP being elevated I would not consider this to be a reliable marker and I do believe the patient has some degree of volume overload I recommend net negative volume status over the next 24 hours. Heart rate control blood pressure control per primary medicine service Qualifiers: Heart failure chronicity: chronic Qualified Code(s): I50.32 - Chronic diastolic (congestive) heart failure (4) Pneumonia Current Visit: No Status: Acute Elevated white count tachycardic on admission chest x-ray is really not particularly helpful her but appears to have a lateral infiltrates again this could certainly be venous congestion but I think is reasonable to treat for pneumonia she had been started on Levaquin which I feel is appropriate I do not think that in the current clinical situation the double coverage for pseudomonas is necessary. I do agree respiratory infectious panel I do not think that she needs empiric coverage for annual influenza given presentation. Agree with sputum blood cultures urine cultures if not already obtained and de- escalation of antimicrobials based upon microbiological sensitivities. Qualifiers: Pneumonia type: due to unspecified organism Laterality: bilateral Lung location: lower lobe of lung Qualified Code(s): J18.9 - Pneumonia, unspecified organism History of Present Illness Consult date: 06/05/17 Requesting physician: Leonid Kasper Reason for consult: hypoxemia Chief complaint: Low Oxygen Level History of present illness: This is a 71-year-old woman with a past medical history of advanced COPD on continuous supplemental oxygen obesity hypoventilation syndrome and CAMILLE on BiPAP morbid obesity heart failure with preserved ejection fraction who presented from home because of increase in oxygen requirements at home and lethargy. She has had some mild increase in shortness of breath and persistent cough and when she is "wheezing" she noticed that she has some liquid phlegm that comes up. She has not had a flu shot this year but denies any sick contacts no fever chills myalgias at home generally she says she does not feel too poorly but her daughter noticed that she was much more lethargic and had a significant increase in oxygen such that they were not able to bring her oxygen level up into the 90s despite use of BiPAP with increase in oxygen bleed. In the ED she has had a chest x-ray performed which was notable for possible bibasilar infiltrates and pleural effusions she had an elevated white count kidney function is normal she was treated initially with noninvasive positive pressure ventilation and has since been weaned down to a nonrebreather saturation now is in the high 90s she speaking in full sentences and quite comfortable so she feels better overall. She has had multiple admissions to the hospital this year about every 3 months over the summer it is notable that she had a life-threatening gastrointestinal hemorrhage that was evaluated over issue in his that time he took her off all antiplatelet and anticoagulant therapy. She does have a history of supraventricular arrhythmia and she was being anticoagulated up until that point. She denies any lower extremity swelling outside of baseline but she takes 120 mg of Lasix daily. Past Med Surg Social Fam HX - Past Medical History Medical history: CHF, COPD, DVT, diabetes, hyperlipidemia, hypertension Psychiatric history: anxiety, depression - Past Surgical History Surgical History: appendectomy, - Social History Smoking Status: Former smoker Smokeless Tobacco Status: No Alcohol use: none Drug use: none - Family History Mother Family Member Ethnicity: Non- Living Status: Hx Family Cardiac Disorders: Yes Hx Family Respiratory Disorders: Yes Hx Family Cancer: Yes Hx Family GI Disorders: No Hx Family Endocrine Disorder: No Hx Family Neuromuscular Disorders: No Hx Family Neurologic Disorders: No Hx Family HEENT Disorders: No Hx Family Autoimmune Disorders: No Father Living Status: Hx Family Cancer: Yes Medications and Allergies Albuterol Sulfate [Albuterol Inhaler] 2 puff IH Q4H PRN 08/23/16 [History] Amitriptyline [Elavil] 10 mg PO HS 08/23/16 [History] Ascorbate Calcium [Vitamin C] 500 mg PO DAILY 08/23/16 [History] Tiotropium [place] [Spiriva] 18 mcg IH DAILY 08/23/16 [History] Vitamin B Complex 1 cap PO DAILY 08/23/16 [History] Nystatin POWDER [Nystop] 1 appl TP BID #1 bottle 08/27/16 [Rx] Oxygen 2 l NS CONT 09/21/16 [History] Diltiazem CD (24hr) [Cardizem CD] 180 mg PO DAILY #30 cap.er.24h 10/14/16 [Rx] Furosemide [Lasix] 60 mg PO BID #60 tablet 10/14/16 [Rx] Budesonide/Formoterol 160/4.5 [Symbicort 160/4.5] 2 puff IH BID 12/06/16 [ History] Calcium Carbonate [Calcium] 500 mg PO DAILY 12/06/16 [History] Cholecalciferol (D-3) [Vitamin D] 1,000 unit PO DAILY 12/06/16 [History] Docusate [Colace] 100 mg PO DAILY PRN 12/06/16 [History] Ipratropium/Albuterol Neb [Duoneb] 3 ml IH QID PRN 12/06/16 [History] Multivit-Min/Iron/Folic/Lutein [Centrum Silver Women Tablet] 1 tab PO DAILY 05/15 [History] Multivits Min/Iron/FA/Herb#186 [Hair, Skin and Nails Caplet] 1 tab PO DAILY 05/15 [History] Vitamin E Acid Succinate [Vitamin E] 400 unit PO DAILY 12/06/16 [History] Acetaminophen w/Cod 300-30 mg [Tylenol w/Codeine #3] 1 tab PO TID PRN 12/31/16 [ History] Lactobacillus [Culturelle] 1 each PO BID #30 cap.sprink 01/04/17 [Rx] hydrALAZINE [HydrALAZINE] 25 mg PO QID #120 tablet 01/04/17 [Rx] Atorvastatin Calcium [Lipitor] 20 mg PO BID 06/04/17 [History] Febuxostat [Uloric] 40 mg PO DAILY 06/04/17 [History] Ferrous Gluconate 324 mg PO BID 06/04/17 [History] GuaiFENesin ER [Mucinex] 600 mg PO BID 06/04/17 [History] Metoprolol [Lopressor] 50 mg PO BID 06/04/17 [History] [place]-3 Fatty Acids [Fish Oil] 300 mg PO DAILY 06/04/17 [History] Pantoprazole Sodium 40 mg PO BID 06/04/17 [History] metFORMIN [Glucophage] 1,000 mg PO BID 06/04/17 [History] predniSONE [PredniSONE] 10 mg PO Q48H 06/04/17 [History] 3 Allergy/AdvReac Type Severity Reaction Status Date / Time No Known Allergies Allergy Verified 08/23/16 19:46 All Systems: A 10-system review of systems was performed and is negative for pertinent findings except as documented above in the HPI. Physical Examination Vital Signs: Vital Signs, Last 4 Hours Temp Pulse Resp BP Pulse Ox 06/05/17 11:07 98.6 F 76 24 160/71 98 06/05/17 07:29 98.3 F 74 26 166/68 97 General appearance: no acute distress ENT: oropharynx moist Neck: supple, no lymphadenopathy Effort: normal Auscultation: bilateral: diminished breath sounds (No significant wheezes), rales (Faint crackles bilaterally in lung bases) Cardiovascular: regular rate and rhythm Gastrointestinal: normoactive bowel sounds, soft, non-tender (Bilateral lower extremity edema noted approximately 1+) Extremities: no cyanosis, no edema, no clubbing, edema normal mental status, non-focal exam mood appropriate Results - Laboratory Findings CBC and BMP: 06/04/17 21:02 06/04/17 21:02 Abnormal lab findings: Abnormal lab results WBC 13.5 K/mcL (4.3-11.1) H 06/04/17 21:02 MCV 82.2 fL (83.0-100.0) L 06/04/17 21:02 MCH 25.0 pg (28.0-33.3) L 06/04/17 21:02 MCHC 30.4 g/dL (31.6-35.5) L 06/04/17 21:02 RDW 17.9 % (11.5-14.5) H 06/04/17 21:02 Neutrophils # 10.5 K/mcL (1.6-8.9) H 06/04/17 21:02 Potassium 3.1 mEq/L (3.5-4.5) L 06/04/17 21:02 Chloride 96 mEq/L (98-109) L 06/04/17 21:02 Carbon Dioxide 31 mEq/L (19-29) H 06/04/17 21:02 Glucose 132 mg/dL (70-99) H 06/04/17 21:02 - Diagnostic Findings Chest x-ray: report reviewed, image reviewed - Clinical Findings Intake & Output: Intake & Output 06/04/17 06/05/17 06/05/17 23:59 07:59 15:59 Intake Total 1150 / 1150 Balance 1150 / 1150 Weight 131.95 kg Consult Discharge Plan - Plan Referrals: Eduardo Hernandez Jr, MD [Primary Care Provider] -
[2017-06-05] MEDS: Insulin LISPRO 300 UNITS/3 ML VIAL SQ SCH ×3 (11:45→22:10)
[2017-06-05] MEDS: Ipratropium/Albuterol Neb 3 ML IH SCH ×4 (11:48→23:38)
[2017-06-05 13:03] LABS: Adenovirus Not Detected (Not Detect); Bordetella Pertussis Not Detected (Not Detect); Chlamydophila pneumoniae Not Detected (Not Detect); Coronavirus 229E Not Detected (Not Detect); Coronavirus HKU1 Not Detected (Not Detect); Coronavirus NL63 Not Detected (Not Detect); Coronavirus OC43 Not Detected (Not Detect); Human Metapneumovirus Not Detected (Not Detect); Human Rhinovirus/Enterovirus Not Detected (Not Detect); Influenza A Subtype 2009 H1 Not Detected (Not Detect); Influenza A Untypeable Not Detected (Not Detect); Influenza B Not Detected (Not Detect); Mycoplasma pneumoniae Not Detected (Not Detect); Parainfluenza Virus 1 Not Detected (Not Detect); Parainfluenza Virus 2 Not Detected (Not Detect); Parainfluenza Virus 3 Not Detected (Not Detect); Parainfluenza Virus 4 Not Detected (Not Detect); Respiratory Syncytial Virus Not Detected (Not Detect)
[2017-06-05] MEDS: Diltiazem CD (24hr) 180 MG CAPSULE PO SCH (13:31)
[2017-06-05] MEDS: hydrALAZINE 25 MG TABLET PO SCH ×3 (15:48→22:14)
[2017-06-05] MEDS: Furosemide 40 MG TABLET PO SCH (18:15)
[2017-06-05] MEDS: Budesonide/Formoterol 160/4.5 MDI IH SCH (20:21)
[2017-06-05] MEDS ORDERED: Potassium Chloride Elixir 20 MEQ/15 ML UDC PO ONE (21:37)
[2017-06-05] MEDS: Levofloxacin 750 MG/150 ML 750 MG/150 ML BAG IVPB SCH (22:13)
[2017-06-06] MEDS: Acetaminophen 325 MG TABLET PO PRN ×2 (00:47→21:44)
[2017-06-06] MEDS: Piperacillin/Tazobactam 3.375 GM in D5% in Water 50 ML IVPB SCH ×2 (00:47→07:55)
[2017-06-06] MEDS: Ipratropium/Albuterol Neb 3 ML IH SCH ×6 (03:33→23:45)
[2017-06-06 03:35] LABS: Basophils % 0.1 %; Hemoglobin 10.7 g/dL (11.5-15.4); Immature Granulocytes % 0.4 % (0-4); Lymphocytes # 0.5 K/mcL (0.6-4.6); Lymphocytes % 4.8 %; Mean Corpuscular HGB Conc 31.5 g/dL (31.6-35.5); Mean Corpuscular Hemoglobin 25.7 pg (28.0-33.3); Mean Corpuscular Volume 81.5 fL (83.0-100.0); Monocytes # 0.3 K/mcL (0.0-1.3); Monocytes % 2.9 %; Neutrophils # 9.6 K/mcL (1.6-8.9); Platelet Count 228 K/mcL (140-400); Red Blood Count 4.17 M/mcL (3.82-4.97); Red Cell Distribution Width 17.8 % (11.5-14.5); Segmented Neutrophils % 91.8 %
[2017-06-06 03:37] LABS: BUN/Creatinine Ratio 21 (6-26); Blood Urea Nitrogen 22 mg/dL (7-20); Calcium 9.4 mg/dL (8.6-10.8); Carbon Dioxide 26 mEq/L (19-29); Chloride 99 mEq/L (98-109); Glucose 254 mg/dL (70-99); Osmolality,Calculated 302 (280-300); Potassium 3.3 mEq/L (3.5-4.5); Sodium 140 mEq/L (136-145); eGFR For African Americans > 60 (> 60); eGFR For Non-African Americans 52 (> 60)
[2017-06-06 04:03] LABS: Platelet Estimate Normal (Normal)
[2017-06-06] MEDS: methylPREDNISolone 125 MG/2 ML VIAL IVP SCH ×3 (05:26→17:34)
[2017-06-06] MEDS: *HR* Enoxaparin 40 MG/0.4 ML SYRINGE SQ SCH (05:26)
[2017-06-06] MEDS: Budesonide/Formoterol 160/4.5 MDI IH SCH ×2 (07:36→20:27)
[2017-06-06] MEDS: Furosemide 40 MG TABLET PO SCH ×2 (07:54→17:31)
[2017-06-06] MEDS: hydrALAZINE 25 MG TABLET PO SCH ×4 (07:54→21:48)
[2017-06-06] MEDS: Pantoprazole 40 MG VIAL IVP SCH (07:54)
[2017-06-06] MEDS: Diltiazem CD (24hr) 180 MG CAPSULE PO SCH (07:54)
[2017-06-06] MEDS: Insulin LISPRO 300 UNITS/3 ML VIAL SQ SCH ×4 (08:12→21:49)
[2017-06-06] MEDS ORDERED: (Febuxostat [Uloric] 40 MG) PO SCH (09:00)
--- NOTE | 2017-06-06 09:42 | Pulmonology Progress Note ---
Date of Encounter: 06/06/17 Time of Encounter: 09:39 Assessment and Plan (1) Acute and chronic respiratory failure with hypoxia Current Visit: No Status: Acute Patient is being weaned back down to baseline supplemental oxygen requirement with history of advanced lung disease and HFpEF complicated by obesity hypoventilation syndrome and obstructive sleep apnea. Wean FiO2 to keep saturation greater than 88-92% Out of bed to chair and ambulation as tolerated incentive spirometry so helpful for what is presumed to be a significant component of atelectasis (2) Acute exacerbation of chronic obstructive airways disease Current Visit: No Status: Acute Switch to by mouth formulation of steroids 40 mg prednisone to complete 5 days Continue bronchodilators as needed via nebulizer. Continue Symbicort twice a day her home dose of Spiriva via [employer] should be switched to Respimat formulation She will need close pulmonary follow-up in the next 2-4 weeks the time of discharge (3) Diastolic heart failure Current Visit: No Status: Acute Net negative volume status per internal medicine Qualifiers: Heart failure chronicity: chronic Qualified Code(s): I50.32 - Chronic diastolic (congestive) heart failure (4) Pneumonia Current Visit: No Status: Acute This is possible cultures as far are negative I would treat for 5 days with respiratory fluoroquinolone by mouth with planned to stop subsequently Qualifiers: Pneumonia type: due to unspecified organism Laterality: bilateral Lung location: lower lobe of lung Qualified Code(s): J18.9 - Pneumonia, unspecified organism (5) CAMILLE (obstructive sleep apnea) Current Visit: Yes Status: Acute Complicated by obesity hypoventilation syndrome continue BiPAP at night and with naps Pulmonary will sign off please call with any questions Subjective Principal diagnosis: COPD exacerbation Interval history: Patient has done much better in the last 24 hours. She is sitting up in bed in been weaned down to her baseline oxygen requirements she says she feels much better. Objective PUL Vital signs: Last Vital Signs Temp 97.7 F 06/06/17 06:47 Pulse 60 06/06/17 06:47 Resp 16 06/06/17 07:37 BP 149/63 06/06/17 06:47 Pulse Ox 92 06/06/17 07:37 General appearance: no acute distress Auscultation: bilateral: diminished breath sounds, wheezes (Faint expiratory wheeze), rhonchi (Dominantly in lung bases) Cardiovascular: regular rate and rhythm Gastrointestinal: normoactive bowel sounds Extremities: edema normal mental status Results - Laboratory Findings CBC and BMP: 06/06/17 03:07 06/06/17 03:07 Abnormal lab findings: Abnormal lab results Hgb 10.7 g/dL (11.5-15.4) L D 06/06/17 03:07 Hct 34.0 % (35.3-44.9) L 06/06/17 03:07 MCV 81.5 fL (83.0-100.0) L 06/06/17 03:07 MCH 25.7 pg (28.0-33.3) L 06/06/17 03:07 MCHC 31.5 g/dL (31.6-35.5) L 06/06/17 03:07 RDW 17.8 % (11.5-14.5) H 06/06/17 03:07 Neutrophils # 9.6 K/mcL (1.6-8.9) H 06/06/17 03:07 Lymphocytes # 0.5 K/mcL (0.6-4.6) L 06/06/17 03:07 Potassium 3.3 mEq/L (3.5-4.5) L 06/06/17 03:07 BUN 22 mg/dL (7-20) H 06/06/17 03:07 Est GFR (Non-Af Amer) 52 (> 60) L 06/06/17 03:07 Glucose 254 mg/dL (70-99) H 06/06/17 03:07 POC Glucose 222 (58-89) H 06/05/17 21:08 Hemoglobin A1c 6.9 % (-5.6) H 06/05/17 09:56 Calculated Osmolality 302 (280-300) H 06/06/17 03:07 - Microbiology Findings Microbiology Findings: Microbiology, Last 48 Hours 06/05/17 23:30 Sputum Culture - Preliminary Sputum - Clinical Findings Intake & Output: Intake & Output 06/05/17 06/06/17 06/06/17 23:59 07:59 15:59 Intake Total 530 / 530 50 / 50 480 / 480 Output Total 0 / 0 Balance 530 / 530 50 / 50 480 / 480 Weight 111.584 kg 114.487 kg Consult Discharge Plan - Plan Referrals: Eduardo Hernandez Jr, MD [Primary Care Provider] -
[2017-06-06] MEDS: Insulin DETEMIR 100 UNIT/ML X5UNITS SQ SCH ×2 (11:21→21:47)
[2017-06-06] MEDS: Potassium Chloride Elixir 20 MEQ/15 ML UDC PO SCH ×2 (11:21→15:18)
[2017-06-06] MEDS ORDERED: Potassium Chloride Elixir 20 MEQ/15 ML UDC PO ONE (15:20)
--- NOTE | 2017-06-06 18:54 | Internal Med Progress Note ---
Date of Encounter: 06/06/17 Time of Encounter: 15:00 - Assessment and plan (1) Congestive heart failure Current Visit: No Status: Chronic Assessment and plan: Continue oral Jesus's. Strict I's and O's. Fluid restriction. Sodium restricted diet. Qualifiers: Congestive heart failure type: diastolic Congestive heart failure chronicity: chronic Qualified Code(s): I50.32 - Chronic diastolic (congestive ) heart failure (2) Type 2 diabetes mellitus Current Visit: No Status: Chronic Assessment and plan: Insulin sliding scale. Qualifiers: Diabetes mellitus complication status: with hyperglycemia Diabetes mellitus mcc insulin use: without manager intermediate use Qualified Code(s): E11.65 - Type 2 diabetes mellitus with hyperglycemia (3) DVT prophylaxis Current Visit: No Status: Acute Assessment and plan: Subcutaneous Lovenox. (4) Morbid obesity with BMI of 45.0-49.9, adult Current Visit: No Status: Chronic (5) Acute and chronic respiratory failure with hypoxia Current Visit: No Status: Acute Assessment and plan: Oxygen by nasal cannula. BiPAP when necessary. I have ordered an ABG however the patient refused. (6) COPD (chronic obstructive pulmonary disease) Current Visit: No Status: Acute Assessment and plan: IV steroids and IV Levaquin. Appreciate pulmonology recommendations. We will quick taper steroids and discontinue Zosyn. Qualifiers: COPD type: COPD with acute exacerbation Qualified Code(s): J44.1 - Chronic obstructive pulmonary disease with (acute) exacerbation (7) Community acquired pneumonia Current Visit: Yes Status: Acute Assessment and plan: Follow-up cultures. Qualifiers: Laterality: right Lung location: lower lobe of lung Qualified Code(s): J18.1 - Lobar pneumonia, unspecified organism (8) Sepsis Current Visit: No Status: Resolved Qualifiers: Sepsis type: sepsis due to unspecified organism Qualified Code(s): A41.9 - Sepsis, unspecified organism - Subjective Interval history: Patient's shortness of breath has improved since yesterday. Denies chest pain. - Constitutional Vitals: Temp Pulse Resp BP Pulse Ox 97.7 F 73 22 146/61 90 06/06/17 15:51 06/06/17 15:51 06/06/17 16:04 06/06/17 15:51 06/06/17 16:04 General appearance: Present: A&O X 3, no acute distress, obese - Neck Neck exam general surgery: Present: supple, trachea midline. Absent: lymphadenopathy - Respiratory Respiratory exam: Present: CTAB, wheezes. Absent: accessory muscle use, rales, rhonchi - Cardiovascular Cardiovascular exam: Present: RRR, +S1, +S2. Absent: diastolic murmur, gallop, rubs, systolic murmur - GI/Abdominal GI/Abdominal exam: Present: normal bowel sounds, soft, no peritoneal signs. Absent: distended, tenderness - Skin Skin exam: Present: dry, intact Internal Medicine: Result - Labs CBC & Chem 7: 06/06/17 03:07 06/06/17 03:07 Labs: Short CBC 06/06/17 Range/Units 03:07 WBC 10.5 (4.3-11.1) K/mcL Hgb 10.7 L D (11.5-15.4) g/dL Hct 34.0 L (35.3-44.9) % Plt Count 228 (140-400) K/mcL Neutrophils # 9.6 H (1.6-8.9) K/mcL BMP 06/06/17 03:07 Sodium 140 Potassium 3.3 L Chloride 99 Carbon Dioxide 26 BUN 22 H Creatinine 1.05 Glucose 254 H Calcium 9.4 Consult Discharge Plan - Plan Referrals: Eduardo Hernandez Jr, MD [Primary Care Provider] -
--- NOTE | 2017-06-06 19:25 | Electrocardiograph Report ---
[place] [id number] Test Date: 2017-06-04 Pat Name: Garima Pollack Department: 103 Room: 2A Gender: F Gre Instructor: : 1945 Requested By: Vaibhav Nayak Order Number: [id number] Reading MD: Jerrod Guillory MD Measurements Intervals [place] Rate: 105 P: RI: 0 QRS: -31 QRSD: 101 T: 57 QT: 363 QTc: 424 Interpretive Statements SINUS RHYTHM WITH PACS MARKED LEFT AXIS DEVIATION Poor R wave progression Electronically Signed On 06-06-2017 19:23:42 EST by Jerrod Guillory MD
[2017-06-06] MEDS: Levofloxacin 750 MG/150 ML 750 MG/150 ML BAG IVPB SCH (21:46)
[2017-06-06] MEDS: Nystatin POWDER 30 GM BOTTLE TP SCH (22:13)
[2017-06-07] MEDS: Ipratropium/Albuterol Neb 3 ML IH SCH ×3 (03:57→11:10)
[2017-06-07 06:51] LABS: Basophils % 0.1 %; Hematocrit 32.4 % (35.3-44.9); Hemoglobin 9.9 g/dL (11.5-15.4); Immature Granulocytes % 0.6 % (0-4); Lymphocytes # 0.4 K/mcL (0.6-4.6); Lymphocytes % 4.9 %; Mean Corpuscular HGB Conc 30.6 g/dL (31.6-35.5); Mean Corpuscular Hemoglobin 24.9 pg (28.0-33.3); Mean Corpuscular Volume 81.4 fL (83.0-100.0); Mean Platelet Volume 10.9 fL (9.4-12.4); Monocytes # 0.4 K/mcL (0.0-1.3); Monocytes % 4.8 %; Platelet Count 208 K/mcL (140-400); Red Blood Count 3.98 M/mcL (3.82-4.97); Red Cell Distribution Width 17.7 % (11.5-14.5); Segmented Neutrophils % 89.6 %
[2017-06-07 07:07] LABS: BUN/Creatinine Ratio 28 (6-26); Blood Urea Nitrogen 29 mg/dL (7-20); Calcium 9.3 mg/dL (8.6-10.8); Carbon Dioxide 31 mEq/L (19-29); Chloride 99 mEq/L (98-109); Glucose 252 mg/dL (70-99); Osmolality,Calculated 306 (280-300); Potassium 3.6 mEq/L (3.5-4.5); Sodium 141 mEq/L (136-145); eGFR For African Americans > 60 (> 60); eGFR For Non-African Americans 53 (> 60)
[2017-06-07] MEDS: Budesonide/Formoterol 160/4.5 MDI IH SCH (07:41)
[2017-06-07] MEDS: *HR* Enoxaparin 40 MG/0.4 ML SYRINGE SQ SCH (08:05)
[2017-06-07] MEDS: Diltiazem CD (24hr) 180 MG CAPSULE PO SCH (08:05)
[2017-06-07] MEDS: methylPREDNISolone 125 MG/2 ML VIAL IVP SCH (08:05)
[2017-06-07] MEDS: Furosemide 40 MG TABLET PO SCH (08:06)
[2017-06-07] MEDS: Nystatin POWDER 30 GM BOTTLE TP SCH (08:08)
[2017-06-07] MEDS: hydrALAZINE 25 MG TABLET PO SCH ×2 (08:08→11:40)
[2017-06-07] MEDS: Insulin LISPRO 300 UNITS/3 ML VIAL SQ SCH ×2 (08:09→11:40)
[2017-06-07] MEDS: Pantoprazole 40 MG VIAL IVP SCH (08:09)
--- NOTE | 2017-06-07 09:18 | Discharge Summary ---
<Theo Romero - Last Filed: 06/07/17 13:37> Date of Encounter: 06/07/17 Time of Encounter: 09:14 - Discharge Medications Prescriptions: levoFLOXacin [Levaquin] 750 mg PO Q24H #5 tablet predniSONE [PredniSONE] See Taper PO DAILY #26 tablet Umeclidinium Brm/Vilanterol Tr [Anoro Ellipta 62.5-25 Mcg INH] 1 each IH DAILY # 1 blst.w.dev Home Medications: Albuterol Sulfate [Albuterol Inhaler] 2 puff IH Q4H PRN 08/23/16 [History] Amitriptyline [Elavil] 10 mg PO HS 08/23/16 [History] Ascorbate Calcium [Vitamin C] 500 mg PO DAILY 08/23/16 [History] Tiotropium [place] [Spiriva] 18 mcg IH DAILY 08/23/16 [History] Vitamin B Complex 1 cap PO DAILY 08/23/16 [History] Nystatin POWDER [Nystop] 1 appl TP BID #1 bottle 08/27/16 [Rx] Oxygen 2 l NS CONT 09/21/16 [History] Diltiazem CD (24hr) [Cardizem CD] 180 mg PO DAILY #30 cap.er.24h 10/14/16 [Rx] Furosemide [Lasix] 60 mg PO BID #60 tablet 10/14/16 [Rx] Calcium Carbonate [Calcium] 500 mg PO DAILY 12/06/16 [History] Cholecalciferol (D-3) [Vitamin D] 1,000 unit PO DAILY 12/06/16 [History] Docusate [Colace] 100 mg PO DAILY PRN 12/06/16 [History] Ipratropium/Albuterol Neb [Duoneb] 3 ml IH QID PRN 12/06/16 [History] Multivit-Min/Iron/Folic/Lutein [Centrum Silver Women Tablet] 1 tab PO DAILY 05/15 [History] Multivits Min/Iron/FA/Herb#186 [Hair, Skin and Nails Caplet] 1 tab PO DAILY 05/15 [History] Vitamin E Acid Succinate [Vitamin E] 400 unit PO DAILY 12/06/16 [History] Acetaminophen w/Cod 300-30 mg [Tylenol w/Codeine #3] 1 tab PO TID PRN 12/31/16 [ History] Lactobacillus [Culturelle] 1 each PO BID #30 cap.sprink 01/04/17 [Rx] hydrALAZINE [HydrALAZINE] 25 mg PO QID #120 tablet 01/04/17 [Rx] Atorvastatin Calcium [Lipitor] 20 mg PO BID 06/04/17 [History] Febuxostat [Uloric] 40 mg PO DAILY 06/04/17 [History] Ferrous Gluconate 324 mg PO BID 06/04/17 [History] GuaiFENesin ER [Mucinex] 600 mg PO BID 06/04/17 [History] Metoprolol [Lopressor] 50 mg PO BID 06/04/17 [History] [place]-3 Fatty Acids [Fish Oil] 300 mg PO DAILY 06/04/17 [History] Pantoprazole Sodium 40 mg PO BID 06/04/17 [History] metFORMIN [Glucophage] 1,000 mg PO BID 06/04/17 [History] predniSONE [PredniSONE] 10 mg PO Q48H 06/04/17 [History] Umeclidinium Brm/Vilanterol Tr [Anoro Ellipta 62.5-25 Mcg INH] 1 each IH DAILY # 1 blst.w.dev 06/07/17 [Rx] levoFLOXacin [Levaquin] 750 mg PO Q24H #5 tablet 06/07/17 [Rx] predniSONE [PredniSONE] See Taper PO DAILY #26 tablet 06/07/17 [Rx] Allergies/Adverse Reactions: 3 Allergy/AdvReac Type Severity Reaction Status Date / Time No Known Allergies Allergy Verified 08/23/16 19:46 Date of admission: 06/05/17 10:56 Primary care physician: Eduardo Hernandez Jr, MD Consults: 06/06/17 11:37 Consult to Occupational Therapy [CONS] Routine Comment: Evaluate, develop and implement POC Reason for Consult: weakness related to hypoxia Consult to Physical Therapy [CONS] Routine Comment: Evaluate, develop and implement POC Reason for Consult: weakness related to hypoxia - Patient Status Disposition: Home Health Service Condition: Fair Functional capacity at discharge: uses cane/walker Overall status at discharge: patient is progressing back to baseline - Discharge Instructions Instructions: Levofloxacin (By mouth), Chronic Obstructive Pulmonary Disease ( DC), Pneumonia (DC) Follow Up With: Eduardo Hernandez Jr, MD [Primary Care Provider] - [facility] [Provider Group] Additional Instructions: Please follow up with your PCP and sponge diver within 2 weeks If develop worsening shortness of breath/chest pain please return to the ED - Diet and Activity Activity: increase activity as tolerated Diet: diabetic diet Hospital course: Ms. Pollack is a 71 year old female who presents with shortness of breath that was multifactorial in setting of CHF and COPD exacerbation. Was started on breathing treatments, IV steroids, and fluid restriction. She does take 3 L oxygen and also night time BiPAP at home which was continued once she was here. CXR demonstrated a suspected pneumonia and she was started on Levaquin along with Zosyn for suspected pseudomonas. Pulmonology was consulted and recommended holding her ICS due to recurrent pneumonias and starting her on dual LABA/LAMA. Today patient is essentially back to her baseline in terms of oxygen requirements and is breathing without difficulty while at rest. She will be going back home as she already has supportive services with home health/ passport and meals on wheels. We have changed her Symbicort to Anoro and will run a ramos check with her insurance (she has both medicaid and medicare) in addition to 5 additional days of Levaquin and 8 day steroid taper. - Time Spent with Patient Total time spent providing and/or coordinating discharge services: - Constitutional Vitals: Temp Pulse Resp BP Pulse Ox 98.0 F 72 18 169/73 91 06/07/17 07:35 06/07/17 07:35 06/07/17 07:44 06/07/17 07:35 06/07/17 07:44 General appearance: Present: A&O X 3, no acute distress, obese - Head Head exam: Present: atraumatic, normocephalic - Eye Eye exam: Present: PERRL, conjuntiva pink, sclera anicteric - Neck Neck exam general surgery: Present: supple, trachea midline. Absent: lymphadenopathy - Respiratory Respiratory exam: Present: rales. Absent: accessory muscle use, rhonchi, wheezes - Cardiovascular Cardiovascular exam: Present: RRR, +S1, +S2. Absent: diastolic murmur, gallop, rubs, systolic murmur - GI/Abdominal GI/Abdominal exam: Present: normal bowel sounds, soft, no peritoneal signs. Absent: distended, tenderness - Extremities Exam Extremities exam: Present: warm, radial pulses palpable and symmetrical. Absent : calf tenderness, cyanotic, pedal edema - Neurological Exam Neurological exam: Present: alert, no focal deficits. 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 care use Qualified Code(s): E11.65 - Type 2 diabetes mellitus with hyperglycemia (3) DVT prophylaxis Priority: Secondary Status: Acute (4) Morbid obesity with BMI of 45.0-49.9, adult Priority: Secondary Status: Chronic (5) Acute and chronic respiratory failure with hypoxia Priority: Secondary Status: Acute (6) COPD (chronic obstructive pulmonary disease) Priority: Primary Status: Acute Qualifiers: COPD type: COPD with acute exacerbation Qualified Code(s): J44.1 - Chronic obstructive pulmonary disease with (acute) exacerbation (7) Community acquired pneumonia Priority: Secondary Status: Acute Qualifiers: Laterality: right Lung location: lower lobe of lung Qualified Code(s): J18.1 - Lobar pneumonia, unspecified organism Date of admission: 06/05/17 10:56 Primary care physician: Eduardo Hernandez Jr, MD Consults: 06/06/17 11:37 Consult to Occupational Therapy [CONS] Routine Comment: Evaluate, develop and implement POC Reason for Consult: weakness related to hypoxia Consult to Physical Therapy [CONS] Routine Comment: Evaluate, develop and implement POC Reason for Consult: weakness related to hypoxia Hospital course: Ms. Pollack is a 71 year old female - Time Spent with Patient Total time spent providing and/or coordinating discharge services: Greater than 30 minutes (I spent 35 minutes coordinating this discharge) - Constitutional Vitals: Temp Pulse Resp BP Pulse Ox 97.7 F 71 18 164/74 90 06/07/17 10:55 06/07/17 10:55 06/07/17 11:11 06/07/17 10:55 06/07/17 11:11 - Attending Attestation I examined this patient and my medical decision-making was reviewed with the Resident Physician, Dr Theo Romero. I agree with the documented findings, disposition and treatment plan as described except to the extent set forth below. Patient reports significant improvement in breathing. On exam Lungs sounds are clear, heart is regular. She will be discharged home with Levaquin and oral steroids.
--- NOTE | 2017-06-07 09:21 | Physician Discharge Referral ---
Home Health/Hosp Referral Info Transfer to: Home Health Attending Provider: Dr. Kasper Provider in Charge Post Discharge: PCP - Diagnosis (1) Acute diastolic heart failure Priority: Primary Status: Acute (2) Community acquired pneumonia Priority: Secondary Status: Acute (3) Acute and chronic respiratory failure with hypoxia Priority: Secondary Status: Acute (4) COPD (chronic obstructive pulmonary disease) Priority: Secondary Status: Acute (5) Hypertension Priority: Secondary Status: Chronic (6) Type 2 diabetes mellitus Priority: Secondary Status: Chronic (7) Morbid obesity with BMI of 45.0-49.9, adult Priority: Secondary Status: Chronic - Respiratory Orders Oxygen / L per min Smoking Cessation: Smoking cessation has been advised. For more information, call the [employer] Quit Line at 1-422-YNDF-NOW. - Diet/Nutrition Diet/Nutrition Orders: Cardiac (diabetic) - Activity Activity Orders: Ambulate - Services Needed Following services are medically necessary services: Home Health Aide - Transfer Medications Prescriptions: levoFLOXacin [Levaquin] 750 mg PO Q24H #5 tablet predniSONE [PredniSONE] See Taper PO DAILY #26 tablet Umeclidinium Brm/Vilanterol Tr [Anoro Ellipta 62.5-25 Mcg INH] 1 each IH DAILY # 1 blst.w.dev Home Medications: Albuterol Sulfate [Albuterol Inhaler] 2 puff IH Q4H PRN 08/23/16 [History] Amitriptyline [Elavil] 10 mg PO HS 08/23/16 [History] Ascorbate Calcium [Vitamin C] 500 mg PO DAILY 08/23/16 [History] Tiotropium [place] [Spiriva] 18 mcg IH DAILY 08/23/16 [History] Vitamin B Complex 1 cap PO DAILY 08/23/16 [History] Nystatin POWDER [Nystop] 1 appl TP BID #1 bottle 08/27/16 [Rx] Oxygen 2 l NS CONT 09/21/16 [History] Diltiazem CD (24hr) [Cardizem CD] 180 mg PO DAILY #30 cap.er.24h 10/14/16 [Rx] Furosemide [Lasix] 60 mg PO BID #60 tablet 10/14/16 [Rx] Calcium Carbonate [Calcium] 500 mg PO DAILY 12/06/16 [History] Cholecalciferol (D-3) [Vitamin D] 1,000 unit PO DAILY 12/06/16 [History] Docusate [Colace] 100 mg PO DAILY PRN 12/06/16 [History] Ipratropium/Albuterol Neb [Duoneb] 3 ml IH QID PRN 12/06/16 [History] Multivit-Min/Iron/Folic/Lutein [Centrum Silver Women Tablet] 1 tab PO DAILY 05/15 [History] Multivits Min/Iron/FA/Herb#186 [Hair, Skin and Nails Caplet] 1 tab PO DAILY 05/15 [History] Vitamin E Acid Succinate [Vitamin E] 400 unit PO DAILY 12/06/16 [History] Acetaminophen w/Cod 300-30 mg [Tylenol w/Codeine #3] 1 tab PO TID PRN 12/31/16 [ History] Lactobacillus [Culturelle] 1 each PO BID #30 cap.sprink 01/04/17 [Rx] hydrALAZINE [HydrALAZINE] 25 mg PO QID #120 tablet 01/04/17 [Rx] Atorvastatin Calcium [Lipitor] 20 mg PO BID 06/04/17 [History] Febuxostat [Uloric] 40 mg PO DAILY 06/04/17 [History] Ferrous Gluconate 324 mg PO BID 06/04/17 [History] GuaiFENesin ER [Mucinex] 600 mg PO BID 06/04/17 [History] Metoprolol [Lopressor] 50 mg PO BID 06/04/17 [History] [place]-3 Fatty Acids [Fish Oil] 300 mg PO DAILY 06/04/17 [History] Pantoprazole Sodium 40 mg PO BID 06/04/17 [History] metFORMIN [Glucophage] 1,000 mg PO BID 06/04/17 [History] predniSONE [PredniSONE] 10 mg PO Q48H 06/04/17 [History] Umeclidinium Brm/Vilanterol Tr [Anoro Ellipta 62.5-25 Mcg INH] 1 each IH DAILY # 1 blst.w.dev 06/07/17 [Rx] levoFLOXacin [Levaquin] 750 mg PO Q24H #5 tablet 06/07/17 [Rx] predniSONE [PredniSONE] See Taper PO DAILY #26 tablet 06/07/17 [Rx] Allergies/Adverse Reactions: 3 Allergy/AdvReac Type Severity Reaction Status Date / Time No Known Allergies Allergy Verified 08/23/16 19:46 Certification: Further, I certify that my clinical findings support that this patient is homebound (i.e. absences from home require considerable and taxing effort and are for medical reasons or restoration services or infrequently or short duration when for other reasons) because: Homebound Reason: Patient requires assistance of a person or device to safely leave home Attestation: My signature below is to certify that this patient is under my care and that I, or nurse practitioner, or a physician's water quality assistant working with me, has a face-to -face encounter with this patient.
[2017-06-07 11:01] VITALS: BP 164/74
[2017-06-07] MEDS: Insulin DETEMIR 100 UNIT/ML X5UNITS SQ SCH (11:40)
[2017-06-07] MEDS ORDERED: levoFLOXacin 750 MG TABLET PO SCH (20:00)
== END 2017-06-07 14:27 | disposition home health service (06) | DRG 190 ==
LOC: 2ANU 20:32 → EMEROO 20:32 → 2NENU 06-05 00:24 → SUATTDRO 06-05 10:56 → 2ANU 06-05 16:18
PROVIDERS: ADMIT Internal Medicine; ATTEND Internal Medicine

== ENCOUNTER 2017-08-02 11:21 | Inpatient (IN) ==
[2017-08-02] MEDS ORDERED: methylPREDNISolone 125 MG/2 ML VIAL IVP ONE (11:41)
[2017-08-02] MEDS ORDERED: Ipratropium/Albuterol Neb 3 ML IH ONE (11:41)
[2017-08-02] MEDS ORDERED: Bumetanide 1 MG/4 ML VIAL IVP ONE (11:43)
--- NOTE | 2017-08-02 11:46 | Emergency Department Note ---
Disposition Clinical Impression: Congestive heart failure Qualifiers: Congestive heart failure type: unspecified congestive heart failure type Congestive heart failure chronicity: acute Qualified Code(s): I50.9 - Heart failure, unspecified Pneumonia Qualifiers: Pneumonia type: due to unspecified organism Laterality: unspecified laterality Lung location: unspecified part of lung Qualified Code(s): J18.9 - Pneumonia, unspecified organism Disposition: Admitted As Inpatient Condition: Fair Referrals: Eduardo Hernandez Jr, MD [Primary Care Provider] - Forms: ED Satisfaction Letter Time of Disposition: 14:23 SOB HPI - General Chief Complaint: ED Shortness of Breath/Dyspnea Stated Complaint: KATJA Time Seen by Provider: 08/02/17 11:41 Source: patient, family Mode of arrival: wheelchair Limitations: no limitations Nursing Notes Reviewed: Yes Vital Signs Reviewed: Yes - History of Present Illness 71-year-old with a history COPD CHF who comes in stating that her weights up about 8 pounds and she's had increasing shortness of breath. Patient is on 8 L oxygen at home and was told that she could go up to 12 if her oxygen drops. She normally runs in the high 80s low 90s. Today she was 8586 even though they had turned up her oxygen. She is awake alert and appropriate without any mental status changes at this time. 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 Denies: fever Treatment prior to arrival: oxygen Cough present: Yes Cough Description: Involuntary Cough Frequency: Intermittent - Related Data Home Medications Medication Instructions Recorded Confirmed Albuterol Sulfate [Albuterol 2 puff IH Q4H PRN 08/23/16 06/04/17 Inhaler] Amitriptyline [Elavil] 10 mg PO HS 08/23/16 06/04/17 Ascorbate Calcium [Vitamin C] 500 mg PO DAILY 08/23/16 06/04/17 Tiotropium [place] [Spiriva] 18 mcg IH DAILY 08/23/16 06/04/17 Vitamin B Complex 1 cap PO DAILY 08/23/16 06/04/17 Oxygen 2 l NS CONT 09/21/16 06/04/17 Calcium Carbonate [Calcium] 500 mg PO DAILY 12/06/16 06/04/17 Cholecalciferol (D-3) [Vitamin D] 1,000 unit PO DAILY 12/06/16 06/04/17 Docusate [Colace] 100 mg PO DAILY PRN 12/06/16 06/04/17 Ipratropium/Albuterol Neb [Duoneb] 3 ml IH QID PRN 12/06/16 06/04/17 Multivit-Min/Iron/Folic/Lutein 1 tab PO DAILY 12/06/16 06/04/17 [Centrum Silver Women Tablet] Multivits Min/Iron/FA/Herb#186 1 tab PO DAILY 12/06/16 06/04/17 [Hair, Skin and Nails Caplet] Vitamin E Acid Succinate [Vitamin 400 unit PO DAILY 12/06/16 06/04/17 E] Acetaminophen w/Cod 300-30 mg 1 tab PO TID PRN 12/31/16 06/04/17 [Tylenol w/Codeine #3] Atorvastatin Calcium [Lipitor] 20 mg PO BID 06/04/17 06/04/17 Febuxostat [Uloric] 40 mg PO DAILY 06/04/17 06/04/17 Ferrous Gluconate 324 mg PO BID 06/04/17 06/04/17 GuaiFENesin ER [Mucinex] 600 mg PO BID 06/04/17 06/04/17 Metoprolol [Lopressor] 50 mg PO BID 06/04/17 06/04/17 [place]-3 Fatty Acids [Fish Oil] 300 mg PO DAILY 06/04/17 06/04/17 Pantoprazole Sodium 40 mg PO BID 06/04/17 06/04/17 metFORMIN [Glucophage] 1,000 mg PO BID 06/04/17 06/04/17 predniSONE [PredniSONE] 10 mg PO Q48H 06/04/17 06/04/17 Previous Rx's Medication Instructions Recorded Nystatin POWDER [Nystop] 1 appl TP BID #1 bottle 08/27/16 Diltiazem CD (24hr) [Cardizem CD] 180 mg PO DAILY #30 cap.er.24h 10/14/16 Furosemide [Lasix] 60 mg PO BID #60 tablet 10/14/16 Lactobacillus [Culturelle] 1 each PO BID #30 cap.sprink 01/04/17 hydrALAZINE [HydrALAZINE] 25 mg PO QID #120 tablet 01/04/17 Umeclidinium Brm/Vilanterol Tr 1 each IH DAILY #1 blst.w.dev 06/07/17 [Anoro Ellipta 62.5-25 Mcg INH] levoFLOXacin [Levaquin] 750 mg PO Q24H #5 tablet 06/07/17 predniSONE [PredniSONE] See Taper PO DAILY #26 tablet 06/07/17 Allergies Allergy/AdvReac Type Severity Reaction Status Date / Time No Known Allergies Allergy Verified 08/23/16 19:46 All systems ED: reviewed and negative except as stated. Constitutional: Denies: fever, chills, weakness, weight change Eyes: Denies: eye pain, eye discharge, vision change ENT ED: Denies: ear pain, throat pain, dental pain, hearing loss, epistaxis, congestion, dysphagia Cardiovascular: Denies: chest pain, palpitations, dyspnea on exertion, edema, syncope Respiratory: Reports: cough, dyspnea, wheezes. Denies: hemoptysis, stridor Gastrointestinal: Denies: abdominal pain, nausea, vomiting, diarrhea, constipation, hematemesis, melena, hematochezia Genitourinary: Denies: dysuria, frequency, hematuria, discharge Musculoskeletal: Denies: back pain, neck pain, arthralgia, myalgia Integumentary: Denies: rash, abrasion, lesions Neurological: Denies: headache, weakness, numbness, paresthesias, confusion, abnormal gait, vertigo Psychiatric: Denies: anxiety, depression, suicidal thoughts, homicidal thoughts , auditory hallucinations, visual hallucinations Endocrine: Denies: fatigue Hematological/Lymphatic: Denies: easy bleeding, easy bruising Allergic/Immunologic: Denies: facial swelling, urticaria Past Medical History - Past Medical History Medical history: Reports: CHF, COPD, DVT, diabetes, hyperlipidemia, hypertension Surgical history: Reports: appendectomy, Psychiatric history: Reports: anxiety, depression - Social History Smoking Status: Former smoker Smokeless Tobacco Status: No Alcohol use: Reports: none Drug use: Reports: none Physical Exam - General Limitations: no limitations General appearance: alert, in no apparent distress - Head Head exam: atraumatic, normocephalic, normal inspection - Eye Eye exam: Present: normal appearance, PERRL, EOMI - ENT ENT exam: normal exam, normal oropharynx, mucous membranes moist - Neck Neck exam: Present: normal inspection, full ROM, trachea midline - Chest Chest inspection: Present: normal inspection, symmetric chest wall rise - Respiratory Respiratory exam: Present: wheezes, prolonged expiratory phase, other (Rhonchi) - Cardiovascular Cardiovascular exam: Present: regular rate, normal rhythm, normal heart sounds - Abdominal Exam Abdominal exam: Present: soft, Non-Tender. Absent: tenderness, distention, guarding, rebound, rigidity - Extremities Exam Extremities exam: Present: pedal edema - Expanded Lower Extremity Exam Neurovascular/Tendon exam: Absent: motor deficit, sensory deficit, tendon deficit Gait: not tested/not observed - Back Exam Back exam: Present: normal inspection, full ROM. Absent: tenderness - Neurological Exam Neurological exam: Present: alert, oriented X3 - Psychiatric Psychiatric exam: Present: normal affect, normal mood - Skin Skin exam: Present: warm, dry, intact, normal color Course - Reevaluation(s) Reevaluation #1: 71-year-old history CHF comes in with about a pound weight gain and shortness of breath. Chest x-ray shows opacities in both lungs with consideration for pneumonia. We'll cover with pneumonia also CHF patient will be admitted. Time: 14:22 - Consultations Consultation #1: Discussed with , admit. Time: 14:23 Vital Signs Temperature 98.0 F 08/02/17 11:22 Pulse Rate 87 08/02/17 11:22 Respiratory Rate 20 08/02/17 11:22 Blood Pressure 182/75 08/02/17 11:22 O2 Sat by Pulse Oximetry 82 08/02/17 11:22 Temperature 98.0 F 08/02/17 11:22 Pulse Rate 79 08/02/17 13:14 Respiratory Rate 20 08/02/17 13:14 Blood Pressure 112/81 08/02/17 13:14 O2 Sat by Pulse Oximetry 89 08/02/17 13:14 Oxygen Delivery Oxygen Delivery Oximizer Shortness of Breath/Dyspnea - Lab Data Result diagrams: 08/02/17 12:06 08/02/17 12:06 Lab Results 08/02/17 08/02/17 08/02/17 Range/Units 12:06 12:06 12:06 WBC 11.9 H (4.3-11.1) K/mcL RBC 4.58 (3.82-4.97) M/mcL Hgb 11.4 L (11.5-15.4) g/dL Hct 37.9 (35.3-44.9) % MCV 82.8 L (83.0-100.0) fL MCH 24.9 L (28.0-33.3) pg MCHC 30.1 L (31.6-35.5) g/dL RDW 18.4 H (11.5-14.5) % Plt Count 263 (140-400) K/mcL MPV 9.5 (9.4-12.4) fL Immature Gran % 0.4 (0-4) % Seg Neutrophils % 87.4 % Lymphocytes % 8.0 % Monocytes % 3.4 % Eosinophils % 0.4 % Basophils % 0.4 % Neutrophils # 10.4 H (1.6-8.9) K/mcL Lymphocytes # 1.0 (0.6-4.6) K/mcL Monocytes # 0.4 (0.0-1.3) K/mcL Eosinophils # 0.1 (0.0-0.6) K/mcL Basophils # 0.1 (0.0-0.2) K/mcL Sodium 140 (136-145) mEq/L Potassium 3.7 (3.5-5.1) mEq/L Chloride 95 L (98-107) mEq/L Carbon Dioxide 31 H (23-29) mEq/L BUN 22 (8-23) mg/dL Creatinine 0.90 (0.60-1.20) mg/dL Est GFR ( Amer) > 60 (> 60) Est GFR (Non-Af Amer) > 60 (> 60) BUN/Creatinine Ratio 24 (6-26) Glucose 133 H (70-105) mg/dL Calculated Osmolality 295 (280-300) Lactic Acid 2.7 H (0.5-2.2) mmol/L Calcium 9.3 (8.6-10.3) mg/dL - EKG Data EKG attestation: Yes I reviewed and interpreted this EKG. EKG shows normal: Reports: sinus rhythm Rate: Reports: normal Rhythm: Reports: NSR P waves: Reports: other (Short CO interval) Interpretation: Reports: no acute changes
[2017-08-02 12:19] LABS: Basophils # 0.1 K/mcL (0.0-0.2); Basophils % 0.4 %; Eosinophils # 0.1 K/mcL (0.0-0.6); Eosinophils % 0.4 %; Hematocrit 37.9 % (35.3-44.9); Hemoglobin 11.4 g/dL (11.5-15.4); Immature Granulocytes % 0.4 % (0-4); Mean Corpuscular HGB Conc 30.1 g/dL (31.6-35.5); Mean Corpuscular Hemoglobin 24.9 pg (28.0-33.3); Mean Corpuscular Volume 82.8 fL (83.0-100.0); Mean Platelet Volume 9.5 fL (9.4-12.4); Monocytes # 0.4 K/mcL (0.0-1.3); Monocytes % 3.4 %; Neutrophils # 10.4 K/mcL (1.6-8.9); Platelet Count 263 K/mcL (140-400); Red Blood Count 4.58 M/mcL (3.82-4.97); Red Cell Distribution Width 18.4 % (11.5-14.5); Segmented Neutrophils % 87.4 %
[2017-08-02 12:42] LABS: BUN/Creatinine Ratio 24 (6-26); Blood Urea Nitrogen 22 mg/dL (8-23); Calcium 9.3 mg/dL (8.6-10.3); Carbon Dioxide 31 mEq/L (23-29); Chloride 95 mEq/L (98-107); Glucose 133 mg/dL (70-105); Osmolality,Calculated 295 (280-300); Potassium 3.7 mEq/L (3.5-5.1); Sodium 140 mEq/L (136-145); eGFR For African Americans > 60 (> 60); eGFR For Non-African Americans > 60 (> 60)
[2017-08-02] MEDS ORDERED: Piperacillin/Tazobactam 3.375 GM in D5% in Water (Mini-Bag+) 100 ML IVPB ONE (13:18)
[2017-08-02] MEDS ORDERED: Piperacillin/Tazobactam 3.375 GM in Water for inj. (sterile) 20 ML 20 ML IVP ONE (14:00)
[2017-08-02] MEDS ORDERED: Naloxone 0.4 MG/ML INJ IVP PRN (15:23)
[2017-08-02] MEDS ORDERED: Ondansetron 4 MG/2 ML VIAL IVP PRN (15:23)
[2017-08-02] MEDS ORDERED: Acetaminophen 325 MG TABLET PO PRN (15:23)
[2017-08-02] MEDS ORDERED: Dextrose Gel 15 GM/37.5 ML TUBE PO PRN ×2 (15:44)
[2017-08-02] MEDS ORDERED: D5% in Water 1,000 ML IVC PRN (15:44)
[2017-08-02] MEDS ORDERED: *HR* Dextrose 50 % in Water (Syg) 50 ML SYRINGE IVP PRN (15:44)
[2017-08-02] MEDS ORDERED: Albuterol 2.5 MG/3 ML NEBULIZER IH PRN (15:58)
[2017-08-02] MEDS ORDERED: Azithromycin 500 MG in D5% in Water 250 ML IVPB SCH (16:00)
[2017-08-02] MEDS ORDERED: cefTRIAXone 1,000 MG in Water for inj. (sterile) 20 ML 10 ML IVP SCH (16:00)
[2017-08-02] MEDS: Ipratropium/Albuterol Neb 3 ML IH SCH ×2 (16:50→22:02)
--- NOTE | 2017-08-02 17:00 | Internal Med History&Physical ---
<Anupam Calzada - Last Filed: 08/02/17 17:35> Date of Encounter: 08/02/17 Time of Encounter: 15:00 Assessment and Plan (1) Community acquired pneumonia Current visit: Yes Status: Acute Acute CAP. Pt. reports SOB and dyspnea over the past several days. 1-View CXR today shows probable mild pulmonary edema and left larger than right basilar pulmonary opacities which could be due to pleural effusions or consolidation. WBC is 11.9 on admission. Initial lactic acid 2.7 on admission. Second lactic 1.9 following IV fluids. Will use IV fluids judiciously if warranted patient's current CHF exacerbation. Pt. does not currently meet sepsis criteria and is afebrile. Blood cultures x2. Sputum culture ordered. Legionella and strep pneumoniae antigens ordered. IVPB Zosyn administered in ED. Will discontinue Zosyn and administer IVPB azithromycin 500 mg daily and 1000 mg ceftriaxone for CAP infection coverage. We will adjust abx coverage based on culture results. Supplemental O2 with titration and SPO2 monitoring. DuoNebs every 6 scheduled. Monitor pt. for signs of increasing infection and/or respiratory distress. Monitor f/u labs. Pt. discussed w/Dr. Meyers who agrees w/plan of care. Pt. is high risk for further morbidity and infection based on current pneumonia diagnosis, acute exacerbation of COPD and CHF, history, and risk factors. Inpatient. Qualifiers: Laterality: right Lung location: lower lobe of lung Qualified Code(s): J18.1 - Lobar pneumonia, unspecified organism (2) Acute exacerbation of congestive heart failure Current visit: Yes Status: Acute Acute exacerbation of CHF w/reported weight gain of 8 pounds in 7 days, SOB/ Dyspnea, orthopnea, and bilateral pedal edema. Pt. denies chest pain or palpitations. IVP lasix 40 mg BID. Monitor I&O and daily weight. 1.5L daily fluid restriction. Continuous cardiac telemetry. Supplemental O2 w/titration and SpO2 monitoring. December Emcyt every 6 scheduled. Methylprednisolone 40 mg every 8 for COPD exacerbation. Qualifiers: Congestive heart failure type: unspecified congestive heart failure type Qualified Code(s): I50.9 - Heart failure, unspecified (3) Acute exacerbation of chronic obstructive airways disease Current visit: Yes Status: Acute Acute exacerbation of COPD complicated by acute exacerbation of CHF and pneumonia. Pt. reports being a former smoker smoking 2 packs per day and quitting 6 years ago. Will continue patient's inhalers and add duo nebs every 6 scheduled. Methylprednisolone 40 mg every 8 hours. Albuterol nebs added every 4 when necessary. Supplemental O2 with titration and SPO2 monitoring. (4) Diabetes Current visit: Yes Status: Chronic Hx of chronic diabetes controlled with oral anti-hyperglycemic medications. Will hold patient's metformin and administer low-dose correctional insulin sliding scale with hypoglycemic protocol. BG checks ACHS. A1c in a.m. labs. Qualifiers: Diabetes mellitus type: type 2 Diabetes mellitus complication status: with unspecified complications Diabetes mellitus terminologist insulin use: without alf use Qualified Code(s): E11.8 - Type 2 diabetes mellitus with unspecified complications (5) HLD (hyperlipidemia) Current visit: Yes Status: Chronic Hx of chronic HLD. Lipid panel in a.m. labs. Continue pts. Lipitor. Qualifiers: Hyperlipidemia type: pure hypercholesterolemia Qualified Code(s): E78.00 - Pure hypercholesterolemia, unspecified; E78.0 - Pure hypercholesterolemia (6) HTN (hypertension) Current visit: Yes Status: Chronic Hx of chronic HTN. Monitor pt. and VS. Continue pts. Lopressor. Qualifiers: Hypertension type: essential hypertension Qualified Code(s): I10 - Essential (primary) hypertension (7) DVT prophylaxis Current visit: Yes Status: Acute Heparin 5,000 units SQ Q8 for DVT prophylaxis. Monitor pt. for signs of bleeding. Internal Medicine - H&P: HPI Chief complaint: SOB/Dyspnea Admitted From: Emergency Dept Plans for Post Hospital Care: Home History of present illness: Ms. Pollack is a 71 year old female with medical history of CHF, COPD, DVT 39 years ago, diabetes controlled by oral anti-hyperglycemic medications, HLD and HTN presents from the ED with chief complaint of shortness of breath and dyspnea for the past several days. Patient states she normally uses 3-4L of home oxygen and was told by her PCP to increase to 8-12L when necessary. Patient's daughter states her SPO2 has been in the high 80s even w/increased Ls. Patient states her weight has increased approximately 8 pounds in 7 days, she is experiencing shortness of breath and dyspnea, as well as orthopnea. Patient denies recent illness, fever, chills, nausea, vomiting, headache, changes in vision, chest pain, palpitations, unusual bleeding, abdominal pain, diarrhea, constipation, numbness, tingling, dizziness, lightheadedness, pre- syncope, or syncope. Past Med Surg Social Fam HX - Past Medical History Source: patient, old records reviewed, obtained from family Medical history: CHF, COPD, DVT (39 years ago when w/son), diabetes, hyperlipidemia, hypertension Psychiatric history: anxiety, depression - Past Surgical History Surgical History: appendectomy, - Social History Smoking Status: Former smoker Packs per day: 2 PPD - Reports quitting 6 years ago Smokeless Tobacco Status: No Alcohol use: none Drug use: none Current living situation: Home, With Family Activity Level: Uses cane/walker Recent Out of Country Travel Within the Last 8 Weeks: No Exposure or Possible Exposure to Illness During Travel: No - Family History Mother Race: Family Member Ethnicity: Non- Living Status: Age at : 68 Cause of : Lung cancer Hx Family Cancer: Yes (Lung) Father Race: Family Member Ethnicity: Non- Living Status: Age at : 52 Cause of : Leukemia Hx Family Cancer: Yes (Leukemia) Brother Race: Family Member Ethnicity: Non- Living Status: Age at : 57 Cause of : Lung cancer Hx Family Cancer: Yes (Lung) Sister Race: Family Member Ethnicity: Non- Living Status: Still Living Hx Family Cancer: Yes (Lymphoma) Internal Medicine - H&P: Meds Albuterol Sulfate [Albuterol Inhaler] 2 puff IH Q4H PRN 08/23/16 [History] Amitriptyline [Elavil] 10 mg PO HS 08/23/16 [History] Ascorbate Calcium [Vitamin C] 500 mg PO DAILY 08/23/16 [History] Vitamin B Complex 1 cap PO DAILY 08/23/16 [History] Nystatin POWDER [Nystop] 1 appl TP BID #1 bottle 08/27/16 [Rx] Oxygen 2 l NS CONT 09/21/16 [History] Diltiazem CD (24hr) [Cardizem CD] 180 mg PO DAILY #30 cap.er.24h 10/14/16 [Rx] Calcium Carbonate [Calcium] 500 mg PO DAILY 12/06/16 [History] Cholecalciferol (D-3) [Vitamin D] 1,000 unit PO DAILY 12/06/16 [History] Docusate [Colace] 100 mg PO DAILY PRN 12/06/16 [History] Ipratropium/Albuterol Neb [Duoneb] 3 ml IH BID 12/06/16 [History] Multivit-Min/Iron/Folic/Lutein [Centrum Silver Women Tablet] 1 tab PO DAILY 05/15 [History] Multivits Min/Iron/FA/Herb#186 [Hair, Skin and Nails Caplet] 1 tab PO DAILY 05/15 [History] Vitamin E Acid Succinate [Vitamin E] 400 unit PO DAILY 12/06/16 [History] Acetaminophen w/Cod 300-30 mg [Tylenol w/Codeine #3] 1 tab PO TID PRN 12/31/16 [ History] Lactobacillus [Culturelle] 1 each PO BID #30 cap.sprink 01/04/17 [Rx] hydrALAZINE [HydrALAZINE] 25 mg PO QID #120 tablet 01/04/17 [Rx] Atorvastatin Calcium [Lipitor] 20 mg PO BID 06/04/17 [History] Febuxostat [Uloric] 40 mg PO DAILY 06/04/17 [History] Ferrous Gluconate 324 mg PO Q48H 06/04/17 [History] GuaiFENesin ER [Mucinex] 600 mg PO BID PRN 06/04/17 [History] Metoprolol [Lopressor] 50 mg PO BID 06/04/17 [History] [place]-3 Fatty Acids [Fish Oil] 300 mg PO DAILY 06/04/17 [History] Pantoprazole Sodium 40 mg PO BID 06/04/17 [History] metFORMIN [Glucophage] 1,000 mg PO BID 06/04/17 [History] predniSONE [PredniSONE] 10 mg PO Q48H 06/04/17 [History] Umeclidinium Brm/Vilanterol Tr [Anoro Ellipta 62.5-25 Mcg INH] 1 each IH DAILY # 1 blst.w.dev 06/07/17 [Rx] Bumetanide [Bumex] 2 mg PO BID 08/02/17 [History] Celecoxib [Celebrex] 100 mg PO DAILY 08/02/17 [History] Fluticasone Propionate Nasal [Flonase] 50 mcg NS DAILY 08/02/17 [History] 3 Allergy/AdvReac Type Severity Reaction Status Date / Time No Known Allergies Allergy Verified 08/23/16 19:46 All Systems PM: A 10-system review of systems was performed and is negative for pertinent findings except as documented above in the HPI. - Constitutional Constitutional: no chills, no fever(s), no night sweats - EENT Eyes: no change in vision, no discharge, no pain, no photophobia Ears: no ear discharge, no ear pain, no tinnitus Nose, mouth and throat: no dysphagia, no nasal discharge, no neck pain, no sore throat - Breasts Breasts: as per HPI - Cardiovascular Cardiovascular ROS IM: as per HPI, dyspnea, dyspnea on exertion, edema (1+ Bilateral pedal edema), orthopnea, no chest pain, no diaphoresis, no lightheadedness, no palpitations, no syncope - Respiratory Respiratory: as per HPI, cough, dyspnea, dyspnea on exertion, wheezing, no excessive phlegm production - Gastrointestinal Gastrointestinal: no abdominal pain, no diarrhea, no hematemesis, no hematochezia, no melena, no nausea, no vomiting - Genitourinary Genitourinary: no change in urinary stream, no dysuria, no flank pain, no hematuria Menstruation: as per HPI - Musculoskeletal Musculoskeletal ROS IM: no numbness, no tingling - Integumentary Integumentary IM: no rash, no unusual bruising - Neurological Neurological ROS: no confusion, no convulsions, no focal weakness, no numbness, no tingling, no tremor(s) - Psychiatric Psychiatric: as per HPI - Endocrine Endocrine IM: as per HPI - Hematologic/Lymphatic Hematologic/Lymphatic: no easy bruising - Allergic/Immunologic Allergic/Immunologic: as per HPI - Constitutional Vitals: Temp Pulse Resp BP Pulse Ox 98.0 F 84 20 184/77 86 08/02/17 11:22 08/02/17 16:23 08/02/17 16:23 08/02/17 16:23 08/02/17 16:23 General appearance: Present: cooperative, mild distress (Respiratory), A&O X 3, morbidly obese, pleasant, answers questions appropriately - Head Head exam: Present: atraumatic, normal inspection, normocephalic - Eye Eye exam: Present: PERRL, conjuntiva pink, sclera anicteric Pupils: Present: PERRL - ENT ENT exam: Present: normal exam, normal external ear exam - Neck Neck exam general surgery: Present: normal inspection, supple, trachea midline. Absent: lymphadenopathy - Respiratory Respiratory exam: Present: accessory muscle use, wheezes (Bilaterally in all lobes) - Cardiovascular Cardiovascular exam: Present: RRR, +S1, +S2. Absent: diastolic murmur, gallop, rubs, systolic murmur - GI/Abdominal GI/Abdominal exam: Present: normal bowel sounds, soft, no peritoneal signs. Absent: distended, tenderness - Rectal Rectal exam: Present: deferred - Additional comments: exam deferred. - Extremities Exam Extremities exam: Present: pedal edema (1+ bilateral pedal edema), warm, radial pulses palpable and symmetrical. Absent: calf tenderness, cyanotic - Back Exam Back exam: Present: normal inspection - Neurological Exam Neurological exam: Present: CN II-XII intact, oriented X3, no focal deficits. Absent: pronater drift, facial droop, speech deficit - Psychiatric Psychiatric exam: Present: normal affect, normal mood - Skin Skin exam: Present: dry, intact Internal Med - H&P Results - Labs CBC & Chem 7: 08/02/17 12:06 08/02/17 12:06 Labs: Short CBC 08/02/17 Range/Units 12:06 WBC 11.9 H (4.3-11.1) K/mcL Hgb 11.4 L (11.5-15.4) g/dL Hct 37.9 (35.3-44.9) % Plt Count 263 (140-400) K/mcL Neutrophils # 10.4 H (1.6-8.9) K/mcL BMP 08/02/17 12:06 Sodium 140 Potassium 3.7 Chloride 95 L Carbon Dioxide 31 H BUN 22 Creatinine 0.90 Glucose 133 H Calcium 9.3 Cardiac Enzymes 08/02/17 Range/Units 12:06 Troponin I < 0.03 (< 0.04) ng/mL - EKG Data EKG shows normal: sinus rhythm - EKG Data Prior EKG available for review: no EKG comments: 08/02/17 17:09 EKG dated 08/02/17 shows sinus rhythm with short [place] interval. - Impressions ITS Impressions Chest X-Ray 08/02/17 11:41 IMPRESSION: Probable mild pulmonary edema. Left larger than right basilar pulmonary opacities could be due to pleural effusions or consolidation. D/ / Toño Mccartney MD / Toño Mccartney MD Interpreting Provider: Toño Mccartney MD - Diagnostic Studies Chest x-ray Additional comments: Impressions Chest X-Ray 08/02/17 11:41 IMPRESSION: Probable mild pulmonary edema. Left larger than right basilar pulmonary opacities could be due to pleural effusions or consolidation. D/ / Toño Mccartney MD / Toño Mccartney MD Interpreting Provider: Toño Mccartney MD <Curt Meyers - Last Filed: 08/02/17 19:32> Date of Encounter: 08/02/17 Time of Encounter: 17:50 - Cardiovascular Cardiovascular ROS IM: dyspnea, dyspnea on exertion, edema, orthopnea, no chest pain - Respiratory Respiratory: cough, dyspnea, dyspnea on exertion, wheezing, chest congestion - Constitutional Vitals: Temp Pulse Resp BP Pulse Ox 98.0 F 84 20 184/77 86 08/02/17 11:22 08/02/17 16:23 08/02/17 16:58 08/02/17 16:58 08/02/17 16:58 General appearance: Present: mild distress, A&O X 3 - Eye Eye exam: Present: PERRL. Absent: scleral icterus Pupils: Present: normal accommodation - ENT ENT exam: Present: normal exam - Respiratory Respiratory exam: Present: prolonged expiratory phase, rales (scattered but predominantly in the right base), respiratory distress (mild to moderate), rhonchi, wheezes. Absent: chest wall tenderness - Cardiovascular Cardiovascular exam: Present: RRR, +S1, +S2 - GI/Abdominal GI/Abdominal exam: Present: soft. Absent: tenderness - Extremities Exam Extremities exam: Present: pedal edema, warm, radial pulses palpable and symmetrical. Absent: tenderness - Back Exam Back exam: Absent: CVA tenderness (L), CVA tenderness (R) Internal Med - H&P Results - Labs CBC & Chem 7: 08/02/17 12:06 08/02/17 12:06 Labs: Short CBC 08/02/17 Range/Units 12:06 WBC 11.9 H (4.3-11.1) K/mcL Hgb 11.4 L (11.5-15.4) g/dL Hct 37.9 (35.3-44.9) % Plt Count 263 (140-400) K/mcL Neutrophils # 10.4 H (1.6-8.9) K/mcL BMP 08/02/17 12:06 Sodium 140 Potassium 3.7 Chloride 95 L Carbon Dioxide 31 H BUN 22 Creatinine 0.90 Glucose 133 H Calcium 9.3 Cardiac Enzymes 08/02/17 Range/Units 12:06 Troponin I < 0.03 (< 0.04) ng/mL - Impressions ITS Impressions Chest X-Ray 08/02/17 11:41 IMPRESSION: Probable mild pulmonary edema. Left larger than right basilar pulmonary opacities could be due to pleural effusions or consolidation. D/ / Toño Mccartney MD / Toño Mccartney MD Interpreting Provider: Toño Mccartney MD - Attending Attestation I discussed the patient ROSEBUD, PMH, ROS, lab data, and exam findings with Wilver Calzada CNP. I then saw and examined patient independently as well. Patient is short of breath, hypoxemic, and coughing vigorously. She denies any chest pain. Clinically, I agree with pneumonia and CHF. However, given her history of DVT and profound hypoxemia, I worry about PE. I therefore ordered a CTA chest to rule out PE. We will continue antibiotics as ordered, but I asked Wilver to add Vancomycin as well given her degree of hypoxemia. I requested from bed management to place patient either on 2NE or 2N given her acuity. Other than my comments above and noted exam findings, I agree with Wilver's assessment and plan.
[2017-08-02] MEDS: hydrALAZINE 25 MG TABLET PO SCH ×2 (18:17→22:56)
[2017-08-02] MEDS: *HR* Heparin 5,000 UNIT/ML VIAL SQ SCH ×2 (18:17→23:47)
[2017-08-02] MEDS: MethylPREDNISolone 40 MG/ML VIAL IVP SCH ×2 (19:10→23:47)
[2017-08-02] MEDS: Insulin LISPRO 300 UNITS/3 ML VIAL SQ SCH ×2 (19:10→22:57)
[2017-08-02] MEDS: Lactobacillus 1 EACH CAP.SPRINK PO SCH (22:56)
[2017-08-02] MEDS: Nystatin POWDER 30 GM BOTTLE TP SCH (22:58)
[2017-08-02] MEDS: Vancomycin 1,750 MG in D5% in Water 500 ML IVPB SCH (23:30)
[2017-08-02] MEDS: Bumetanide 1 MG TABLET PO SCH (23:54)
[2017-08-03] MEDS: Ipratropium/Albuterol Neb 3 ML IH SCH ×4 (04:37→22:11)
[2017-08-03 04:52] LABS: Basophils % 0.1 %; Hematocrit 33.2 % (35.3-44.9); Immature Granulocytes % 0.6 % (0-4); Lymphocytes % 11.2 %; Mean Corpuscular HGB Conc 30.1 g/dL (31.6-35.5); Mean Corpuscular Hemoglobin 24.9 pg (28.0-33.3); Mean Corpuscular Volume 82.6 fL (83.0-100.0); Mean Platelet Volume 9.9 fL (9.4-12.4); Monocytes # 0.2 K/mcL (0.0-1.3); Monocytes % 2.2 %; Neutrophils # 7.4 K/mcL (1.6-8.9); Platelet Count 246 K/mcL (140-400); Red Blood Count 4.02 M/mcL (3.82-4.97); Red Cell Distribution Width 18.1 % (11.5-14.5); Segmented Neutrophils % 85.9 %
[2017-08-03 04:57] LABS: Hemoglobin A1C 6.8 %
[2017-08-03 05:05] LABS: Alanine Aminotransferase 14 Units/L (7-52); Albumin 3.3 g/dL (3.5-5.7); Albumin/Globulin Ratio 0.9 (1.1-2.2); Alkaline Phosphatase 83 Units/L (34-104); Aspartate Amino Transferase 11 Units/L (13-39); BUN/Creatinine Ratio 28 (6-26); Bilirubin,Total 0.2 mg/dL (0.3-1.0); Blood Urea Nitrogen 27 mg/dL (8-23); Calcium 8.9 mg/dL (8.6-10.3); Carbon Dioxide 31 mEq/L (23-29); Chloride 96 mEq/L (98-107); Chol/HDL Ratio 2.8 (0-4.9); Cholesterol 158 mg/dL (< 200); Globulin 3.6 g/dL (2.4-3.5); Glucose 173 mg/dL (70-105); HDL Cholesterol 57 mg/dL (40-59); LDL Cholesterol,Calculated 83 mg/dL (0-99); Magnesium 1.1 mg/dL (1.6-2.6); Osmolality,Calculated 297 (280-300); Sodium 139 mEq/L (136-145); Total Protein 6.9 g/dL (6.4-8.9); Triglycerides 92 mg/dL (< 150); eGFR For African Americans > 60 (> 60); eGFR For Non-African Americans 56 (> 60)
[2017-08-03] MEDS ORDERED: Magnesium Sulfate 2 GM in D5% in Water 100 ML IVPB SCH (08:45)
[2017-08-03] MEDS ORDERED: Piperacillin/Tazobactam 3.375 GM/200 ML BAG IVPB SCH (09:00)
[2017-08-03] MEDS ORDERED: Celecoxib 100 MG CAPSULE PO SCH (09:00)
[2017-08-03] MEDS ORDERED: (Febuxostat [Uloric] 40 MG) PO SCH (09:00)
[2017-08-03] MEDS ORDERED: (Umeclidinium Brm/Vilanterol Tr [Anoro Ellipta 62.5-2 IH SCH (09:00)
[2017-08-03] MEDS ORDERED: Vancomycin 1,000 MG in D5% in Water 250 ML IVPB SCH (09:00)
[2017-08-03] MEDS: Bumetanide 1 MG TABLET PO SCH (09:16)
[2017-08-03] MEDS: hydrALAZINE 25 MG TABLET PO SCH ×3 (09:17→19:57)
[2017-08-03] MEDS: Diltiazem CD (24hr) 180 MG CAPSULE PO SCH (09:17)
[2017-08-03] MEDS: Vitamin B Complex/Vit C/Vit E 1 EACH TABLET PO SCH (09:17)
[2017-08-03] MEDS: Lactobacillus 1 EACH CAP.SPRINK PO SCH ×2 (09:17→19:57)
[2017-08-03] MEDS: Ascorbic Acid 500 MG TABLET PO SCH (09:17)
[2017-08-03] MEDS: MethylPREDNISolone 40 MG/ML VIAL IVP SCH ×2 (09:17→15:55)
[2017-08-03] MEDS: Cholecalciferol (D-3) 1,000 UNIT TABLET PO SCH (09:17)
[2017-08-03] MEDS: *HR* Heparin 5,000 UNIT/ML VIAL SQ SCH ×2 (09:18→15:55)
[2017-08-03] MEDS: Insulin LISPRO 300 UNITS/3 ML VIAL SQ SCH ×4 (09:19→22:19)
[2017-08-03] MEDS: Piperacillin/Tazobactam 3.375 GM/200 ML BAG IVPB SCH ×2 (09:21→17:31)
[2017-08-03] MEDS: Nystatin POWDER 30 GM BOTTLE TP SCH ×2 (09:23→19:58)
[2017-08-03] MEDS: Fluticasone Propionate Nasal 50 MCG/SPRAY BOTTLE NS SCH (09:23)
[2017-08-03] MEDS: Vancomycin 1,750 MG in D5% in Water 500 ML IVPB SCH (09:44)
--- NOTE | 2017-08-03 12:02 | Electrocardiograph Report ---
[email or web address] Test Date: 2017-08-02 Pat Name: Garima Pollack Department: 102 Room: 2NE22 Gender: F Community Education Coordinator: Msc : 1945 Requested By: Michael Powers Order Number: [id number] Reading MD: Trung Christy MD Measurements Intervals [place] Rate: 85 P: 12 MI: 112 QRS: -5 QRSD: 97 T: 65 QT: 371 QTc: 414 Interpretive Statements SINUS RHYTHM WITH SHORT MI INTERVAL Electronically Signed On 08-03-2017 12:01:15 EST by Trung Christy MD
[2017-08-03] MEDS: *HR* Acetaminophen w/Cod 300-30 mg 1 TAB TABLET PO PRN (13:04)
--- NOTE | 2017-08-03 15:08 | Internal Med Progress Note ---
Date of Encounter: 08/03/17 Time of Encounter: 13:45 - Assessment and plan (1) Acute on chronic respiratory failure Current Visit: No Status: Acute Assessment and plan: Multifactorial-Secondary to CHF exacerbation, HCAP, and COPD exacerbation continue IV diuresis with Lasix 40mg IV BID monitor daily I/Os, daily weights, fluid restriction diet continue broad spectrum IV abx f/u blood and sputum cultures will obtain respiratory viral panel continue systemic steroids at this time bronchodilator support O2 supplementation goal O2 sat: 88-92% continue to closely monitor Qualifiers: Respiratory failure complication: hypoxia Qualified Code(s): J96.21 - Acute and chronic respiratory failure with hypoxia (2) HCAP (healthcare-associated pneumonia) Current Visit: Yes Status: Acute Assessment and plan: as listed above (3) Acute exacerbation of chronic obstructive airways disease Current Visit: Yes Status: Acute Assessment and plan: as listed above (4) Acute on chronic congestive heart failure Current Visit: No Status: Acute Assessment and plan: as listed above Qualifiers: Congestive heart failure type: diastolic Qualified Code(s): I50.33 - Acute on chronic diastolic (congestive) heart failure (5) Atrial fibrillation with RVR Current Visit: No Status: Acute Assessment and plan: Rate controlled with Cardizem not on anticoagulation due to history of GI bleed (6) CKD (chronic kidney disease) stage 3, GFR 30-59 ml/min Current Visit: No Status: Chronic Assessment and plan: renal function at baseline continue to monitor renally dosed abx (7) DVT prophylaxis Current Visit: Yes Status: Acute Assessment and plan: heparin SQ (8) HTN (hypertension) Current Visit: Yes Status: Chronic Assessment and plan: noted to be hypertensive adjusted home medications changed hydralazine to 50mg PO TID closely monitor BP Qualifiers: Hypertension type: essential hypertension Qualified Code(s): I10 - Essential (primary) hypertension (9) Hypomagnesemia Current Visit: No Status: Acute Assessment and plan: Mg supplemented continue to monitor electrolytes and replace as needed (10) Type 2 diabetes mellitus Current Visit: No Status: Chronic Assessment and plan: hold oral antihyperglycemic agents monitor fingerstick and blood glucose sliding scale insulin algorithm ADA diet Qualifiers: Diabetes mellitus complication status: with unspecified complications Diabetes mellitus buttermaker insulin use: without buttermaker use Qualified Code( s): E11.8 - Type 2 diabetes mellitus with unspecified complications (11) Morbid obesity with BMI of 40.0-44.9, adult Current Visit: Yes Status: Chronic - Subjective Interval history: Patient seen and examined with daughter present at bedside. Pt reports of being on 8L NC at rest and 10L with movement at home. She reports of feeling better compared to previous day Currently saturating well on 12L NC pt was hospitalized in May 2017 for similar presentation therefore will treat as HCAP. - Constitutional Vitals: Temp Pulse Resp BP Pulse Ox 98 F 76 16 159/68 88 08/03/17 11:16 08/03/17 11:16 08/03/17 11:16 08/03/17 11:16 08/03/17 11:16 General appearance: Present: cooperative, A&O X 3, morbidly obese, pleasant, no acute distress, answers questions appropriately - Head Head exam: Present: atraumatic, normocephalic - Eye Eye exam: Present: conjuntiva pink, sclera anicteric - Respiratory Respiratory exam: Absent: respiratory distress, wheezes (bibasilar rales, decreased breath sounds) - Cardiovascular Cardiovascular exam: Present: RRR, +S1, +S2. Absent: diastolic murmur, gallop, rubs, systolic murmur - GI/Abdominal GI/Abdominal exam: Present: normal bowel sounds, soft, no peritoneal signs. Absent: distended, tenderness - Extremities Exam Extremities exam: Present: pedal edema, warm, radial pulses palpable and symmetrical. Absent: calf tenderness - Neurological Exam Neurological exam: Present: alert, oriented X3 - Psychiatric Psychiatric exam: Present: normal affect, normal mood Internal Medicine: Result - Labs CBC & Chem 7: 08/03/17 04:11 08/03/17 04:11 Labs: Short CBC 08/03/17 Range/Units 04:11 WBC 8.6 (4.3-11.1) K/mcL Hgb 10.0 L (11.5-15.4) g/dL Hct 33.2 L (35.3-44.9) % Plt Count 246 (140-400) K/mcL Neutrophils # 7.4 (1.6-8.9) K/mcL BMP 08/03/17 04:11 Sodium 139 Potassium 4.0 Chloride 96 L Carbon Dioxide 31 H BUN 27 H Creatinine 0.98 Glucose 173 H Calcium 8.9 Liver Function 08/03/17 Range/Units 04:11 Total Bilirubin 0.2 L (0.3-1.0) mg/dL AST 11 L (13-39) Units/L ALT 14 (7-52) Units/L Alkaline Phosphatase 83 (34-104) Units/L Albumin 3.3 L (3.5-5.7) g/dL Consult Discharge Plan - Plan Referrals: Eduardo Hernandez Jr, MD [Primary Care Provider] -
[2017-08-03] MEDS ORDERED: hydrALAZINE 25 MG TABLET PO ONE (15:11)
[2017-08-03] MEDS: Furosemide 40 MG/4 ML VIAL IVP SCH ×2 (17:31→22:18)
[2017-08-04] MEDS: Piperacillin/Tazobactam 3.375 GM/200 ML BAG IVPB SCH ×3 (00:40→22:07)
[2017-08-04] MEDS: *HR* Heparin 5,000 UNIT/ML VIAL SQ SCH ×3 (00:41→17:39)
[2017-08-04] MEDS: MethylPREDNISolone 40 MG/ML VIAL IVP SCH ×3 (00:41→17:38)
[2017-08-04] MEDS: Ipratropium/Albuterol Neb 3 ML IH SCH ×4 (04:01→21:35)
[2017-08-04 04:09] LABS: Basophils % 0.1 %; Hematocrit 33.1 % (35.3-44.9); Immature Granulocytes % 0.5 % (0-4); Lymphocytes # 0.8 K/mcL (0.6-4.6); Lymphocytes % 7.2 %; Mean Corpuscular HGB Conc 30.2 g/dL (31.6-35.5); Mean Corpuscular Volume 82.8 fL (83.0-100.0); Mean Platelet Volume 10.3 fL (9.4-12.4); Monocytes # 0.5 K/mcL (0.0-1.3); Monocytes % 4.5 %; Neutrophils # 9.1 K/mcL (1.6-8.9); Platelet Count 242 K/mcL (140-400); Red Cell Distribution Width 17.9 % (11.5-14.5); Segmented Neutrophils % 87.7 %
[2017-08-04 05:01] LABS: Alanine Aminotransferase 13 Units/L (7-52); Albumin 3.4 g/dL (3.5-5.7); Alkaline Phosphatase 77 Units/L (34-104); Aspartate Amino Transferase 11 Units/L (13-39); BUN/Creatinine Ratio 32 (6-26); Bilirubin,Total 0.2 mg/dL (0.3-1.0); Blood Urea Nitrogen 35 mg/dL (8-23); Calcium 9.2 mg/dL (8.6-10.3); Carbon Dioxide 30 mEq/L (23-29); Chloride 97 mEq/L (98-107); Globulin 3.5 g/dL (2.4-3.5); Glucose 213 mg/dL (70-105); Osmolality,Calculated 300 (280-300); Sodium 138 mEq/L (136-145); Total Protein 6.9 g/dL (6.4-8.9); eGFR For African Americans > 60 (> 60); eGFR For Non-African Americans 50 (> 60)
[2017-08-04] MEDS: Vitamin B Complex/Vit C/Vit E 1 EACH TABLET PO SCH (09:14)
[2017-08-04] MEDS: Cholecalciferol (D-3) 1,000 UNIT TABLET PO SCH (09:14)
[2017-08-04] MEDS: Ascorbic Acid 500 MG TABLET PO SCH (09:14)
[2017-08-04] MEDS: hydrALAZINE 25 MG TABLET PO SCH ×3 (09:15→22:04)
[2017-08-04] MEDS: Lactobacillus 1 EACH CAP.SPRINK PO SCH ×2 (09:15→22:04)
[2017-08-04] MEDS: Furosemide 40 MG/4 ML VIAL IVP SCH ×2 (09:15→22:05)
[2017-08-04] MEDS: Diltiazem CD (24hr) 180 MG CAPSULE PO SCH (09:16)
[2017-08-04] MEDS: Insulin LISPRO 300 UNITS/3 ML VIAL SQ SCH ×4 (09:16→22:03)
[2017-08-04] MEDS: Nystatin POWDER 30 GM BOTTLE TP SCH ×2 (09:16→22:06)
[2017-08-04] MEDS: Fluticasone Propionate Nasal 50 MCG/SPRAY BOTTLE NS SCH (09:16)
--- NOTE | 2017-08-04 12:41 | Internal Med Progress Note ---
Date of Encounter: 08/04/17 Time of Encounter: 11:45 - Assessment and plan (1) Acute on chronic respiratory failure Current Visit: No Status: Acute Assessment and plan: Multifactorial-Secondary to CHF exacerbation, HCAP, and COPD exacerbation continue IV diuresis with Lasix 40mg IV BID monitor daily I/Os, daily weights, fluid restriction diet continue broad spectrum IV abx f/u blood and sputum cultures (preliminary report shows no growth) f/u respiratory viral panel continue systemic steroids at this time bronchodilator support O2 supplementation goal O2 sat: 88-92% continue to closely monitor Qualifiers: Respiratory failure complication: hypoxia Qualified Code(s): J96.21 - Acute and chronic respiratory failure with hypoxia (2) HCAP (healthcare-associated pneumonia) Current Visit: Yes Status: Acute Assessment and plan: as listed above (3) Acute exacerbation of chronic obstructive airways disease Current Visit: Yes Status: Acute Assessment and plan: as listed above (4) Acute on chronic congestive heart failure Current Visit: No Status: Acute Assessment and plan: as listed above Qualifiers: Congestive heart failure type: diastolic Qualified Code(s): I50.33 - Acute on chronic diastolic (congestive) heart failure (5) Atrial fibrillation with RVR Current Visit: No Status: Acute Assessment and plan: Rate controlled with Cardizem not on anticoagulation due to history of GI bleed (6) CKD (chronic kidney disease) stage 3, GFR 30-59 ml/min Current Visit: No Status: Chronic Assessment and plan: renal function at baseline continue to monitor renally dosed abx (7) DVT prophylaxis Current Visit: Yes Status: Acute Assessment and plan: heparin SQ (8) HTN (hypertension) Current Visit: Yes Status: Chronic Assessment and plan: noted to be hypertensive Added Lisinopril 5mg PO qd continue hydralazine to 50mg PO TID closely monitor BP Qualifiers: Hypertension type: essential hypertension Qualified Code(s): I10 - Essential (primary) hypertension (9) Type 2 diabetes mellitus Current Visit: No Status: Chronic Assessment and plan: hold oral antihyperglycemic agents monitor fingerstick and blood glucose started Levemir based on 24 hour insulin requirements sliding scale insulin algorithm ADA diet Qualifiers: Diabetes mellitus complication status: with unspecified complications Diabetes mellitus skilled nursing insulin use: without intermodal truck driver use Qualified Code( s): E11.8 - Type 2 diabetes mellitus with unspecified complications (10) Morbid obesity with BMI of 40.0-44.9, adult Current Visit: Yes Status: Chronic - Subjective Interval history: Patient seen and examined with daughter present at bedside. Pt reports of being on 8L NC at rest and 10L with movement at home. Reports of feeling better compared to previous day On 9L NC and used her home cpap machine overnight pt reports of not being compliant with her diet at home, has had an increased in salt and fluid intake, which contributed to pt's CHF exacerbation. CHF dietary education provided. Pt willing to stay compliant She reports of feeling better compared to previous day Noted to remain hypertensive, will add Lisinopril 5mg PO qd and closely monitor BP - Constitutional Vitals: Temp Pulse Resp BP Pulse Ox 97.9 F 68 16 175/62 91 08/04/17 11:12 08/04/17 11:12 08/04/17 11:12 08/04/17 11:12 08/04/17 11:12 General appearance: Present: cooperative, A&O X 3, morbidly obese, pleasant, no acute distress, answers questions appropriately - Head Head exam: Present: atraumatic, normocephalic - Eye Eye exam: Present: conjuntiva pink, sclera anicteric - Respiratory Respiratory exam: Present: decreased breath sounds. Absent: respiratory distress, wheezes - Cardiovascular Cardiovascular exam: Present: RRR, +S1, +S2. Absent: diastolic murmur, gallop, rubs, systolic murmur - GI/Abdominal GI/Abdominal exam: Present: normal bowel sounds, soft, no peritoneal signs. Absent: distended, tenderness - Extremities Exam Extremities exam: Present: pedal edema, warm, radial pulses palpable and symmetrical. Absent: calf tenderness - Neurological Exam Neurological exam: Present: alert, oriented X3 - Psychiatric Psychiatric exam: Present: normal affect, normal mood Internal Medicine: Result - Labs CBC & Chem 7: 08/04/17 03:05 08/04/17 03:05 Labs: Short CBC 08/04/17 Range/Units 03:05 WBC 10.4 (4.3-11.1) K/mcL Hgb 10.0 L (11.5-15.4) g/dL Hct 33.1 L (35.3-44.9) % Plt Count 242 (140-400) K/mcL Neutrophils # 9.1 H (1.6-8.9) K/mcL BMP 08/04/17 03:05 Sodium 138 Potassium 4.0 Chloride 97 L Carbon Dioxide 30 H BUN 35 H Creatinine 1.08 Glucose 213 H Calcium 9.2 Liver Function 08/04/17 Range/Units 03:05 Total Bilirubin 0.2 L (0.3-1.0) mg/dL AST 11 L (13-39) Units/L ALT 13 (7-52) Units/L Alkaline Phosphatase 77 (34-104) Units/L Albumin 3.4 L (3.5-5.7) g/dL - VTE Documentation of Mechanical Device: Intermittent pneumatic compression device Consult Discharge Plan - Plan Referrals: Eduardo Hernandez Jr, MD [Primary Care Provider] -
[2017-08-04 14:36] LABS: Adenovirus Not Detected (Not Detect); Bordetella Pertussis Not Detected (Not Detect); Chlamydophila pneumoniae Not Detected (Not Detect); Coronavirus 229E Not Detected (Not Detect); Coronavirus HKU1 Not Detected (Not Detect); Coronavirus NL63 Not Detected (Not Detect); Coronavirus OC43 Not Detected (Not Detect); Human Metapneumovirus Not Detected (Not Detect); Human Rhinovirus/Enterovirus Not Detected (Not Detect); Influenza A Subtype 2009 H1 Not Detected (Not Detect); Influenza A Untypeable Not Detected (Not Detect); Influenza B Not Detected (Not Detect); Mycoplasma pneumoniae Not Detected (Not Detect); Parainfluenza Virus 1 Not Detected (Not Detect); Parainfluenza Virus 2 Not Detected (Not Detect); Parainfluenza Virus 3 Not Detected (Not Detect); Parainfluenza Virus 4 Not Detected (Not Detect); Respiratory Syncytial Virus Not Detected (Not Detect)
[2017-08-04] MEDS: Insulin DETEMIR 100 UNIT/ML X5UNITS SQ SCH (14:45)
[2017-08-04] MEDS: *HR* Acetaminophen w/Cod 300-30 mg 1 TAB TABLET PO PRN (22:03)
[2017-08-05] MEDS: MethylPREDNISolone 40 MG/ML VIAL IVP SCH ×3 (01:36→22:04)
[2017-08-05] MEDS: *HR* Heparin 5,000 UNIT/ML VIAL SQ SCH ×3 (01:36→16:17)
[2017-08-05] MEDS: Ipratropium/Albuterol Neb 3 ML IH SCH ×4 (03:24→21:32)
[2017-08-05 04:30] LABS: Hematocrit 32.1 % (35.3-44.9); Hemoglobin 9.9 g/dL (11.5-15.4); Immature Granulocytes % 0.6 % (0-4); Lymphocytes # 0.7 K/mcL (0.6-4.6); Lymphocytes % 6.7 %; Mean Corpuscular HGB Conc 30.8 g/dL (31.6-35.5); Mean Corpuscular Hemoglobin 25.6 pg (28.0-33.3); Mean Corpuscular Volume 83.2 fL (83.0-100.0); Monocytes # 0.3 K/mcL (0.0-1.3); Monocytes % 3.5 %; Neutrophils # 8.7 K/mcL (1.6-8.9); Platelet Count 222 K/mcL (140-400); Red Blood Count 3.86 M/mcL (3.82-4.97); Red Cell Distribution Width 18.4 % (11.5-14.5); Segmented Neutrophils % 89.2 %
[2017-08-05 04:44] LABS: Magnesium 1.9 mg/dL (1.6-2.6); Phosphorous 3.3 mg/dL (2.7-4.5)
[2017-08-05 04:45] LABS: Albumin/Globulin Ratio 0.9 (1.1-2.2); Bilirubin,Total 0.2 mg/dL (0.3-1.0); Calcium 8.7 mg/dL (8.6-10.3); Globulin 3.3 g/dL (2.4-3.5); Potassium 3.9 mEq/L (3.5-5.1); Total Protein 6.3 g/dL (6.4-8.9)
[2017-08-05] MEDS: Piperacillin/Tazobactam 3.375 GM/200 ML BAG IVPB SCH ×2 (07:14→16:21)
[2017-08-05] MEDS ORDERED: Vancomycin 1,500 MG in D5% in Water 250 ML IVPB SCH (07:30)
[2017-08-05] MEDS ORDERED: Aminoglycoside Consult 1 EACH MC ONE (08:07)
[2017-08-05] MEDS: Cholecalciferol (D-3) 1,000 UNIT TABLET PO SCH (10:30)
[2017-08-05] MEDS: Ascorbic Acid 500 MG TABLET PO SCH (10:30)
[2017-08-05] MEDS: Lactobacillus 1 EACH CAP.SPRINK PO SCH ×2 (10:30→22:03)
[2017-08-05] MEDS: Insulin DETEMIR 100 UNIT/ML X5UNITS SQ SCH (10:30)
[2017-08-05] MEDS: hydrALAZINE 25 MG TABLET PO SCH ×3 (10:31→22:03)
[2017-08-05] MEDS: Diltiazem CD (24hr) 180 MG CAPSULE PO SCH (10:31)
[2017-08-05] MEDS: Vitamin B Complex/Vit C/Vit E 1 EACH TABLET PO SCH (10:31)
[2017-08-05] MEDS: Furosemide 40 MG/4 ML VIAL IVP SCH ×2 (10:31→22:03)
[2017-08-05] MEDS: Insulin LISPRO 300 UNITS/3 ML VIAL SQ SCH ×5 (10:31→22:05)
[2017-08-05] MEDS: Nystatin POWDER 30 GM BOTTLE TP SCH ×2 (10:32→22:04)
[2017-08-05] MEDS: Fluticasone Propionate Nasal 50 MCG/SPRAY BOTTLE NS SCH (10:32)
--- NOTE | 2017-08-05 15:03 | Internal Med Progress Note ---
Date of Encounter: 08/05/17 Time of Encounter: 13:40 - Assessment and plan (1) Acute on chronic respiratory failure Current Visit: No Status: Acute Assessment and plan: Multifactorial-Secondary to CHF exacerbation, HCAP, and COPD exacerbation continue IV diuresis with Lasix 40mg IV BID monitor daily I/Os, daily weights, fluid restriction diet continue broad spectrum IV abx (will discontinue Vancomycin, continue Zosyn) f/u blood and sputum cultures (preliminary report shows no growth) f/u respiratory viral panel continue systemic steroids at this time(de-escalate to Solumedrol 40mg IV q12h) bronchodilator support O2 supplementation goal O2 sat: 88-92% continue to closely monitor Qualifiers: Respiratory failure complication: hypoxia Qualified Code(s): J96.21 - Acute and chronic respiratory failure with hypoxia (2) HCAP (healthcare-associated pneumonia) Current Visit: Yes Status: Acute Assessment and plan: as listed above (3) Acute exacerbation of chronic obstructive airways disease Current Visit: Yes Status: Acute Assessment and plan: as listed above (4) Acute on chronic congestive heart failure Current Visit: No Status: Acute Assessment and plan: as listed above Qualifiers: Congestive heart failure type: diastolic Qualified Code(s): I50.33 - Acute on chronic diastolic (congestive) heart failure (5) Atrial fibrillation with RVR Current Visit: No Status: Acute Assessment and plan: Rate controlled with Cardizem not on anticoagulation due to history of GI bleed (6) CKD (chronic kidney disease) stage 3, GFR 30-59 ml/min Current Visit: No Status: Chronic Assessment and plan: renal function at baseline continue to monitor renally dosed abx (7) DVT prophylaxis Current Visit: Yes Status: Acute Assessment and plan: heparin SQ (8) HTN (hypertension) Current Visit: Yes Status: Chronic Assessment and plan: noted to be hypertensive Increased Lisinopril to 10mg PO qd continue hydralazine to 50mg PO TID closely monitor BP Qualifiers: Hypertension type: essential hypertension Qualified Code(s): I10 - Essential (primary) hypertension (9) Type 2 diabetes mellitus Current Visit: No Status: Chronic Assessment and plan: hold oral antihyperglycemic agents monitor fingerstick and blood glucose increased Levemir dose and added humalog TIDAC based on 24 hour insulin requirements sliding scale insulin algorithm ADA diet Qualifiers: Diabetes mellitus complication status: with unspecified complications Diabetes mellitus half-way insulin use: without half-way use Qualified Code( s): E11.8 - Type 2 diabetes mellitus with unspecified complications (10) Morbid obesity with BMI of 40.0-44.9, adult Current Visit: Yes Status: Chronic - Subjective Interval history: Patient seen and examined at bedside. Pt reports of being on 8L NC at rest and 10L with movement at home. Reports of feeling better compared to previous day On 8L NC and used her home cpap machine overnight pt reports of not being compliant with her diet at home, has had an increased in salt and fluid intake, which contributed to pt's CHF exacerbation. CHF dietary education provided. Pt willing to stay compliant She reports of feeling better compared to previous day Noted to remain hypertensive, will increase Lisinopril to 10mg PO qd and closely monitor BP - Constitutional Vitals: Temp Pulse Resp BP Pulse Ox 97.9 F 60 16 159/73 94 08/05/17 11:45 08/05/17 11:45 08/05/17 11:45 08/05/17 11:45 08/05/17 11:45 General appearance: Present: cooperative, A&O X 3, morbidly obese, pleasant, no acute distress, answers questions appropriately - Head Head exam: Present: atraumatic, normocephalic - Eye Eye exam: Present: conjuntiva pink, sclera anicteric - Respiratory Respiratory exam: Absent: respiratory distress, wheezes (scattered rales ) - Cardiovascular Cardiovascular exam: Present: RRR, +S1, +S2. Absent: diastolic murmur, gallop, rubs, systolic murmur - GI/Abdominal GI/Abdominal exam: Present: normal bowel sounds, soft, no peritoneal signs. Absent: distended, tenderness - Extremities Exam Extremities exam: Present: warm, radial pulses palpable and symmetrical. Absent : calf tenderness - Neurological Exam Neurological exam: Present: alert, oriented X3 Internal Medicine: Result - Labs CBC & Chem 7: 08/05/17 04:22 08/05/17 04:22 Labs: Short CBC 08/05/17 Range/Units 04:22 WBC 9.8 (4.3-11.1) K/mcL Hgb 9.9 L (11.5-15.4) g/dL Hct 32.1 L (35.3-44.9) % Plt Count 222 (140-400) K/mcL Neutrophils # 8.7 (1.6-8.9) K/mcL BMP 08/05/17 04:22 Sodium 141 Potassium 3.9 Chloride 101 Carbon Dioxide 32 H BUN 39 H Creatinine 1.15 Glucose 230 H Calcium 8.7 Liver Function 08/05/17 Range/Units 04:22 Total Bilirubin 0.2 L (0.3-1.0) mg/dL AST 9 L (13-39) Units/L ALT 13 (7-52) Units/L Alkaline Phosphatase 68 (34-104) Units/L Albumin 3.0 L (3.5-5.7) g/dL - VTE Documentation of Mechanical Device: Intermittent pneumatic compression device Consult Discharge Plan - Plan Referrals: Eduardo Hernandez Jr, MD [Primary Care Provider] -
[2017-08-05] MEDS ORDERED: Insulin DETEMIR 100 UNIT/ML X5UNITS SQ ONE (15:06)
[2017-08-05] MEDS: *HR* Acetaminophen w/Cod 300-30 mg 1 TAB TABLET PO PRN (22:03)
[2017-08-06] MEDS: Piperacillin/Tazobactam 3.375 GM/200 ML BAG IVPB SCH ×2 (00:41→05:54)
[2017-08-06] MEDS: *HR* Heparin 5,000 UNIT/ML VIAL SQ SCH ×3 (00:41→17:33)
[2017-08-06] MEDS: Ipratropium/Albuterol Neb 3 ML IH SCH ×4 (03:43→21:19)
[2017-08-06 06:17] LABS: Basophils % 0.1 %; Hematocrit 32.8 % (35.3-44.9); Lymphocytes # 0.8 K/mcL (0.6-4.6); Lymphocytes % 8.9 %; Mean Corpuscular HGB Conc 30.5 g/dL (31.6-35.5); Mean Corpuscular Hemoglobin 25.4 pg (28.0-33.3); Mean Corpuscular Volume 83.5 fL (83.0-100.0); Mean Platelet Volume 10.1 fL (9.4-12.4); Monocytes # 0.3 K/mcL (0.0-1.3); Monocytes % 3.3 %; Neutrophils # 7.6 K/mcL (1.6-8.9); Platelet Count 237 K/mcL (140-400); Red Blood Count 3.93 M/mcL (3.82-4.97); Red Cell Distribution Width 18.2 % (11.5-14.5); Segmented Neutrophils % 86.7 %
[2017-08-06 06:25] LABS: Alanine Aminotransferase 14 Units/L (7-52); Alkaline Phosphatase 62 Units/L (34-104); Aspartate Amino Transferase 9 Units/L (13-39); BUN/Creatinine Ratio 40 (6-26); Bilirubin,Total 0.3 mg/dL (0.3-1.0); Blood Urea Nitrogen 40 mg/dL (8-23); Calcium 8.7 mg/dL (8.6-10.3); Carbon Dioxide 32 mEq/L (23-29); Chloride 101 mEq/L (98-107); Globulin 3.1 g/dL (2.4-3.5); Glucose 204 mg/dL (70-105); Magnesium 1.7 mg/dL (1.6-2.6); Osmolality,Calculated 306 (280-300); Phosphorous 3.7 mg/dL (2.7-4.5); Potassium 4.1 mEq/L (3.5-5.1); Sodium 140 mEq/L (136-145); Total Protein 6.1 g/dL (6.4-8.9); eGFR For African Americans > 60 (> 60); eGFR For Non-African Americans 55 (> 60)
[2017-08-06] MEDS ORDERED: Insulin DETEMIR 100 UNIT/ML X5UNITS SQ SCH (09:00)
[2017-08-06] MEDS: Lactobacillus 1 EACH CAP.SPRINK PO SCH ×2 (09:12→21:56)
[2017-08-06] MEDS: Cholecalciferol (D-3) 1,000 UNIT TABLET PO SCH (09:12)
[2017-08-06] MEDS: Diltiazem CD (24hr) 180 MG CAPSULE PO SCH (09:12)
[2017-08-06] MEDS: hydrALAZINE 25 MG TABLET PO SCH ×3 (09:12→21:56)
[2017-08-06] MEDS: Vitamin B Complex/Vit C/Vit E 1 EACH TABLET PO SCH (09:12)
[2017-08-06] MEDS: Ascorbic Acid 500 MG TABLET PO SCH (09:12)
[2017-08-06] MEDS: MethylPREDNISolone 40 MG/ML VIAL IVP SCH ×2 (09:13→21:57)
[2017-08-06] MEDS: Furosemide 40 MG/4 ML VIAL IVP SCH (09:13)
[2017-08-06] MEDS: Fluticasone Propionate Nasal 50 MCG/SPRAY BOTTLE NS SCH (09:13)
[2017-08-06] MEDS: Insulin LISPRO 300 UNITS/3 ML VIAL SQ SCH ×7 (09:14→21:58)
[2017-08-06] MEDS: Nystatin POWDER 30 GM BOTTLE TP SCH ×2 (09:15→21:57)
--- NOTE | 2017-08-06 12:55 | Internal Med Progress Note ---
Date of Encounter: 08/06/17 Time of Encounter: 12:53 - Assessment and plan (1) Acute on chronic respiratory failure Current Visit: No Status: Acute Assessment and plan: Multifactorial-Secondary to CHF exacerbation, HCAP, and COPD exacerbation continue IV diuresis with Lasix 40mg IV BID, will start PO lasix 40mg BID in am (08/07/17) monitor daily I/Os, daily weights, fluid restriction diet sputum culture positive for Pseudomonas Aeruginosa, will d/c zosyn and start Cefepime respiratory viral panel negative continue systemic steroids at this time(Solumedrol 40mg IV q12h, switch to PO Prednisone 40mg qdaily in am-08/07/17) bronchodilator support O2 supplementation goal O2 sat: 88-92% continue to closely monitor Qualifiers: Respiratory failure complication: hypoxia Qualified Code(s): J96.21 - Acute and chronic respiratory failure with hypoxia (2) HCAP (healthcare-associated pneumonia) Current Visit: Yes Status: Acute Assessment and plan: as listed above (3) Acute exacerbation of chronic obstructive airways disease Current Visit: Yes Status: Acute Assessment and plan: as listed above (4) Acute on chronic congestive heart failure Current Visit: No Status: Acute Assessment and plan: as listed above Qualifiers: Congestive heart failure type: diastolic Qualified Code(s): I50.33 - Acute on chronic diastolic (congestive) heart failure (5) Atrial fibrillation with RVR Current Visit: No Status: Acute Assessment and plan: Rate controlled with Cardizem not on anticoagulation due to history of GI bleed (6) CKD (chronic kidney disease) stage 3, GFR 30-59 ml/min Current Visit: No Status: Chronic Assessment and plan: renal function at baseline continue to monitor renally dosed abx (7) DVT prophylaxis Current Visit: Yes Status: Acute Assessment and plan: heparin SQ (8) HTN (hypertension) Current Visit: Yes Status: Chronic Assessment and plan: BP better controlled continue home meds continue Lisinopril to 10mg PO qd continue hydralazine to 50mg PO TID closely monitor BP repeat BP: 156/68 Qualifiers: Hypertension type: essential hypertension Qualified Code(s): I10 - Essential (primary) hypertension (9) Type 2 diabetes mellitus Current Visit: No Status: Chronic Assessment and plan: hold oral antihyperglycemic agents monitor fingerstick and blood glucose increased Levemir dose and increased humalog TIDAC based on 24 hour insulin requirements sliding scale insulin algorithm ADA diet Qualifiers: Diabetes mellitus complication status: with unspecified complications Diabetes mellitus computer terminal operator insulin use: without computer terminal operator use Qualified Code( s): E11.8 - Type 2 diabetes mellitus with unspecified complications (10) Morbid obesity with BMI of 40.0-44.9, adult Current Visit: Yes Status: Chronic - Subjective Interval history: Patient seen and examined with daughter present at bedside. Pt reports of being on 8L NC at rest and 10L with movement at home. Reports of feeling better compared to previous day On 7L NC and used her home cpap machine overnight pt reports of not being compliant with her diet at home, has had an increased in salt and fluid intake, which contributed to pt's CHF exacerbation. CHF dietary education provided. Pt willing to stay compliant She reports of feeling better compared to previous day Noted to have minimal bibasilar rales, will continue one more day of IV lasix will switch to PO prednisone in am (08/07/17) Repeat BP: 156/68 Sputum culture positive for Pseudomonas aeruginosa - Constitutional Vitals: Temp Pulse Resp BP Pulse Ox 98.1 F 118 20 169/73 89 08/06/17 07:00 08/06/17 07:00 08/06/17 11:18 08/06/17 07:42 08/06/17 11:18 General appearance: Present: cooperative, A&O X 3, morbidly obese, pleasant, no acute distress, answers questions appropriately - Head Head exam: Present: atraumatic, normocephalic - Eye Eye exam: Present: conjuntiva pink, sclera anicteric - Respiratory Respiratory exam: Absent: respiratory distress, wheezes (minimal bibasilar rales ) - Cardiovascular Cardiovascular exam: Present: RRR, +S1, +S2. Absent: diastolic murmur, gallop, rubs, systolic murmur - GI/Abdominal GI/Abdominal exam: Present: normal bowel sounds, soft, no peritoneal signs. Absent: distended, tenderness - Extremities Exam Extremities exam: Present: warm, radial pulses palpable and symmetrical. Absent : calf tenderness - Neurological Exam Neurological exam: Present: alert, oriented X3 Internal Medicine: Result - Labs CBC & Chem 7: 08/06/17 05:55 08/06/17 05:55 Labs: Short CBC 08/06/17 08/06/17 Range/Units 04:30 05:55 WBC TNP 8.8 Hgb TNP 10.0 L Hct TNP 32.8 L Plt Count TNP 237 Neutrophils # TNP 7.6 BMP 08/06/17 08/06/17 04:30 05:55 Sodium TNP 140 Potassium TNP 4.1 Chloride TNP 101 Carbon Dioxide TNP 32 H BUN TNP 40 H Creatinine TNP 1.00 Glucose TNP 204 H Calcium TNP 8.7 Liver Function 08/06/17 08/06/17 Range/Units 04:30 05:55 Total Bilirubin TNP 0.3 AST TNP 9 L ALT TNP 14 Alkaline Phosphatase TNP 62 Albumin TNP 3.0 L - VTE Documentation of Mechanical Device: Intermittent pneumatic compression device Consult Discharge Plan - Plan Referrals: Eduardo Hernandez Jr, MD [Primary Care Provider] -
[2017-08-06] MEDS ORDERED: Insulin DETEMIR 100 UNIT/ML X5UNITS SQ ONE (15:09)
[2017-08-06] MEDS ORDERED: Furosemide 40 MG/4 ML VIAL IVP SCH (17:00)
[2017-08-06] MEDS: Cefepime HCl 2,000 MG in Water for inj. (sterile) 20 ML 20 ML IVP SCH (17:34)
[2017-08-07] MEDS: *HR* Acetaminophen w/Cod 300-30 mg 1 TAB TABLET PO PRN ×2 (00:01→23:49)
[2017-08-07] MEDS: *HR* Heparin 5,000 UNIT/ML VIAL SQ SCH ×4 (00:02→23:49)
[2017-08-07] MEDS: Ipratropium/Albuterol Neb 3 ML IH SCH ×4 (03:31→21:29)
[2017-08-07 04:36] LABS: Basophils % 0.2 %; Hematocrit 34.2 % (35.3-44.9); Hemoglobin 10.4 g/dL (11.5-15.4); Immature Granulocytes % 1.1 % (0-4); Lymphocytes # 0.7 K/mcL (0.6-4.6); Lymphocytes % 7.6 %; Mean Corpuscular HGB Conc 30.4 g/dL (31.6-35.5); Mean Corpuscular Hemoglobin 25.4 pg (28.0-33.3); Mean Corpuscular Volume 83.4 fL (83.0-100.0); Mean Platelet Volume 10.4 fL (9.4-12.4); Monocytes # 0.3 K/mcL (0.0-1.3); Monocytes % 3.3 %; Neutrophils # 8.1 K/mcL (1.6-8.9); Platelet Count 222 K/mcL (140-400); Red Cell Distribution Width 18.3 % (11.5-14.5); Segmented Neutrophils % 87.8 %
[2017-08-07 04:51] LABS: Alanine Aminotransferase 13 Units/L (7-52); Albumin 3.1 g/dL (3.5-5.7); Albumin/Globulin Ratio 1.1 (1.1-2.2); Alkaline Phosphatase 57 Units/L (34-104); Aspartate Amino Transferase 11 Units/L (13-39); BUN/Creatinine Ratio 47 (6-26); Bilirubin,Total 0.3 mg/dL (0.3-1.0); Blood Urea Nitrogen 43 mg/dL (8-23); Calcium 8.8 mg/dL (8.6-10.3); Carbon Dioxide 32 mEq/L (23-29); Chloride 103 mEq/L (98-107); Globulin 2.9 g/dL (2.4-3.5); Glucose 164 mg/dL (70-105); Osmolality,Calculated 308 (280-300); Sodium 142 mEq/L (136-145); eGFR For African Americans > 60 (> 60); eGFR For Non-African Americans > 60 (> 60)
[2017-08-07 04:52] LABS: Magnesium 1.8 mg/dL (1.6-2.6); Phosphorous 3.6 mg/dL (2.7-4.5)
[2017-08-07] MEDS: Cefepime HCl 2,000 MG in Water for inj. (sterile) 20 ML 20 ML IVP SCH ×3 (05:54→22:20)
[2017-08-07] MEDS: Insulin DETEMIR 100 UNIT/ML X5UNITS SQ SCH (11:19)
[2017-08-07] MEDS: Lactobacillus 1 EACH CAP.SPRINK PO SCH ×2 (11:20→20:48)
[2017-08-07] MEDS: Ascorbic Acid 500 MG TABLET PO SCH (11:20)
[2017-08-07] MEDS: hydrALAZINE 25 MG TABLET PO SCH ×3 (11:20→20:49)
[2017-08-07] MEDS: Diltiazem CD (24hr) 180 MG CAPSULE PO SCH (11:20)
[2017-08-07] MEDS: Vitamin B Complex/Vit C/Vit E 1 EACH TABLET PO SCH (11:20)
[2017-08-07] MEDS: Cholecalciferol (D-3) 1,000 UNIT TABLET PO SCH (11:20)
[2017-08-07] MEDS: predniSONE 20 MG TABLET PO SCH (11:20)
[2017-08-07] MEDS: Fluticasone Propionate Nasal 50 MCG/SPRAY BOTTLE NS SCH (11:21)
[2017-08-07] MEDS: Nystatin POWDER 30 GM BOTTLE TP SCH ×2 (11:21→20:51)
[2017-08-07] MEDS: Bumetanide 1 MG TABLET PO SCH ×2 (11:23→18:43)
[2017-08-07] MEDS: Insulin LISPRO 300 UNITS/3 ML VIAL SQ SCH ×7 (11:24→20:57)
--- NOTE | 2017-08-07 12:05 | Internal Med Progress Note ---
Date of Encounter: 08/07/17 Time of Encounter: 12:03 - Assessment and plan (1) Acute on chronic respiratory failure Current Visit: No Status: Acute Assessment and plan: Multifactorial-Secondary to CHF exacerbation, HCAP, and COPD exacerbation. Continue IV Bumex 2 mg twice a day. Monitor I&O's. Fluid restriction diet. sputum culture positive for Pseudomonas Aeruginosa, continue cefepime and respiratory viral panel negative On prednisone 40 mg. The plan is to taper down to her regular prednisone dose of 10 mg every other day. Continue with nebs. Continue with O2 support and wean as tolerated. Patient is on chronic oxygen. The plan is to wean down to about 4 L before discharge which she is on chronically Qualifiers: Respiratory failure complication: hypoxia Qualified Code(s): J96.21 - Acute and chronic respiratory failure with hypoxia (2) Acute on chronic congestive heart failure Current Visit: No Status: Acute Assessment and plan: as listed above Qualifiers: Congestive heart failure type: diastolic Qualified Code(s): I50.33 - Acute on chronic diastolic (congestive) heart failure (3) Acute exacerbation of chronic obstructive airways disease Current Visit: Yes Status: Acute Assessment and plan: as listed above (4) Type 2 diabetes mellitus Current Visit: No Status: Chronic Assessment and plan: hold oral antihyperglycemic agents Continue with Levemir 35 units daily. Continue with insulin sliding-scale. Continue with meal coverage lispro 8 units 3 times a day Continue Accu-Cheks ADA diet Qualifiers: Diabetes mellitus complication status: with unspecified complications Diabetes mellitus lobsterman insulin use: without custodial use Qualified Code( s): E11.8 - Type 2 diabetes mellitus with unspecified complications (5) CKD (chronic kidney disease) stage 3, GFR 30-59 ml/min Current Visit: No Status: Chronic Assessment and plan: renal function at baseline continue to monitor renally dosed abx (6) HTN (hypertension) Current Visit: Yes Status: Chronic Assessment and plan: continue home meds continue Lisinopril to 10mg PO qd continue hydralazine to 50mg PO TID closely monitor BP Qualifiers: Hypertension type: essential hypertension Qualified Code(s): I10 - Essential (primary) hypertension (7) HCAP (healthcare-associated pneumonia) Current Visit: Yes Status: Acute Assessment and plan: as listed above (8) DVT prophylaxis Current Visit: No Status: Acute Assessment and plan: Heparin subcutaneous - Subjective Interval history: Patient continues to have high oxygen needs. She is diuresing however I do not think it has been adequate diuresis as she is only in that 1.3 L negative for the state. Her diuretics was changed to IV bumex yesterday. She is feeling okay. Afebrile. Denies chest pain. - Constitutional Vitals: Temp Pulse Resp BP Pulse Ox 97.6 F 53 18 156/67 88 08/07/17 05:05 08/07/17 07:00 08/07/17 10:28 08/07/17 07:00 08/07/17 10:28 General appearance: Present: cooperative, A&O X 3, morbidly obese, pleasant, no acute distress, answers questions appropriately Exam: GEN: NAD CVS: RRR. S1, S2, systolic murmur 3 out of 6 in intensity RESP: CTAB ABD: Soft, NT, ND, +BS EXT: 1+ edema. 2+ DP. No rashes NEURO: Nonfocal Internal Medicine: Result - Labs CBC & Chem 7: 08/07/17 04:19 08/07/17 04:19 Labs: Short CBC 08/07/17 Range/Units 04:19 WBC 9.2 (4.3-11.1) K/mcL Hgb 10.4 L (11.5-15.4) g/dL Hct 34.2 L (35.3-44.9) % Plt Count 222 (140-400) K/mcL Neutrophils # 8.1 (1.6-8.9) K/mcL BMP 08/07/17 04:19 Sodium 142 Potassium 4.0 Chloride 103 Carbon Dioxide 32 H BUN 43 H Creatinine 0.92 Glucose 164 H Calcium 8.8 Liver Function 08/07/17 Range/Units 04:19 Total Bilirubin 0.3 (0.3-1.0) mg/dL AST 11 L (13-39) Units/L ALT 13 (7-52) Units/L Alkaline Phosphatase 57 (34-104) Units/L Albumin 3.1 L (3.5-5.7) g/dL - VTE Documentation of Mechanical Device: Intermittent pneumatic compression device Consult Discharge Plan - Plan Referrals: Eduardo Hernandez Jr, MD [Primary Care Provider] -
[2017-08-07] MEDS ORDERED: Loperamide 1 MG/5 ML UDC PO PRN (18:10)
[2017-08-07] MEDS: Loperamide 1 MG/5 ML UDC PO PRN (22:20)
[2017-08-08] MEDS: Ipratropium/Albuterol Neb 3 ML IH SCH ×3 (03:53→16:13)
[2017-08-08] MEDS: Cefepime HCl 2,000 MG in Water for inj. (sterile) 20 ML 20 ML IVP SCH ×2 (05:21→15:34)
[2017-08-08 05:41] LABS: Basophils % 0.1 %; Hematocrit 35.4 % (35.3-44.9); Hemoglobin 10.8 g/dL (11.5-15.4); Lymphocytes # 1.1 K/mcL (0.6-4.6); Lymphocytes % 11.7 %; Mean Corpuscular HGB Conc 30.5 g/dL (31.6-35.5); Mean Corpuscular Hemoglobin 25.2 pg (28.0-33.3); Mean Corpuscular Volume 82.7 fL (83.0-100.0); Mean Platelet Volume 10.3 fL (9.4-12.4); Monocytes # 0.6 K/mcL (0.0-1.3); Monocytes % 5.9 %; Neutrophils # 7.8 K/mcL (1.6-8.9); Platelet Count 272 K/mcL (140-400); Red Blood Count 4.28 M/mcL (3.82-4.97); Red Cell Distribution Width 18.6 % (11.5-14.5); Segmented Neutrophils % 81.3 %
[2017-08-08 06:01] LABS: BUN/Creatinine Ratio 42 (6-26); Blood Urea Nitrogen 42 mg/dL (8-23); Calcium 8.7 mg/dL (8.6-10.3); Carbon Dioxide 30 mEq/L (23-29); Chloride 100 mEq/L (98-107); Glucose 125 mg/dL (70-105); Osmolality,Calculated 304 (280-300); Potassium 3.5 mEq/L (3.5-5.1); Sodium 141 mEq/L (136-145); eGFR For African Americans > 60 (> 60); eGFR For Non-African Americans 55 (> 60)
[2017-08-08] MEDS: Insulin LISPRO 300 UNITS/3 ML VIAL SQ SCH ×6 (08:07→17:18)
[2017-08-08] MEDS: Cholecalciferol (D-3) 1,000 UNIT TABLET PO SCH (08:08)
[2017-08-08] MEDS: Vitamin B Complex/Vit C/Vit E 1 EACH TABLET PO SCH (08:08)
[2017-08-08] MEDS: Ascorbic Acid 500 MG TABLET PO SCH (08:08)
[2017-08-08] MEDS: predniSONE 20 MG TABLET PO SCH (08:09)
[2017-08-08] MEDS: Diltiazem CD (24hr) 180 MG CAPSULE PO SCH (08:09)
[2017-08-08] MEDS: hydrALAZINE 25 MG TABLET PO SCH ×2 (08:09→15:34)
[2017-08-08] MEDS: Bumetanide 1 MG TABLET PO SCH ×2 (08:09→15:34)
[2017-08-08] MEDS: Lactobacillus 1 EACH CAP.SPRINK PO SCH (08:09)
[2017-08-08] MEDS: Fluticasone Propionate Nasal 50 MCG/SPRAY BOTTLE NS SCH (08:10)
[2017-08-08] MEDS: *HR* Heparin 5,000 UNIT/ML VIAL SQ SCH ×2 (08:10→17:14)
[2017-08-08] MEDS: Insulin DETEMIR 100 UNIT/ML X5UNITS SQ SCH (08:13)
[2017-08-08] MEDS: Loperamide 1 MG/5 ML UDC PO PRN ×2 (08:13→15:37)
[2017-08-08] MEDS: Nystatin POWDER 30 GM BOTTLE TP SCH (08:16)
[2017-08-08 11:34] VITALS: BP 151/87
--- NOTE | 2017-08-08 14:12 | Discharge Summary ---
Date of Encounter: 08/08/17 Time of Encounter: 14:10 - Discharge Diagnosis (1) Pseudomonas pneumonia Priority: Primary Status: Acute Comments: Acute on chronic hypoxic respiratory failure secondary to acute COPD exacerbation due to Pseudomonas pneumonia/healthcare associated pneumonia present upon admission Qualifiers: Laterality: bilateral Lung location: unspecified part of lung Qualified Code(s): J15.1 - Pneumonia due to Pseudomonas (2) Acute exacerbation of chronic obstructive airways disease Priority: Primary Status: Acute (3) CKD (chronic kidney disease) stage 3, GFR 30-59 ml/min Priority: Secondary Status: Chronic (4) Acute and chronic respiratory failure with hypoxia Priority: Primary Status: Acute (5) Diabetes Priority: Secondary Status: Chronic Comments: was well-controlled with a hemoglobin A1c of 6.8 measured on 08/03/2017 Developed steroid-induced hyperglycemia Qualifiers: Diabetes mellitus type: type 2 Diabetes mellitus complication status: with unspecified complications Diabetes mellitus halfway insulin use: without halfway use Qualified Code(s): E11.8 - Type 2 diabetes mellitus with unspecified complications (6) HLD (hyperlipidemia) Priority: Secondary Status: Chronic Qualifiers: Hyperlipidemia type: pure hypercholesterolemia Qualified Code(s): E78.00 - Pure hypercholesterolemia, unspecified; E78.0 - Pure hypercholesterolemia (7) HTN (hypertension) Priority: Secondary Status: Chronic Qualifiers: Hypertension type: essential hypertension Qualified Code(s): I10 - Essential (primary) hypertension (8) HCAP (healthcare-associated pneumonia) Priority: Primary Status: Acute - Discharge Medications Prescriptions: Cefepime HCl [Maxipime] 1,000 mg IVPB Q12HR #3 vial Insulin Glargine,Hum.rec.anlog [Lantus Solostar] 10 unit SQ HS 30 Days mls predniSONE [PredniSONE] 10 mg PO DAILY 12 Days tablet Home Medications: Albuterol Sulfate [Albuterol Inhaler] 2 puff IH Q4H PRN 08/23/16 [History] Amitriptyline [Elavil] 10 mg PO HS 08/23/16 [History] Ascorbate Calcium [Vitamin C] 500 mg PO DAILY 08/23/16 [History] Vitamin B Complex 1 cap PO DAILY 08/23/16 [History] Nystatin POWDER [Nystop] 1 appl TP BID #1 bottle 08/27/16 [Rx] Oxygen 2 l NS CONT 09/21/16 [History] Diltiazem CD (24hr) [Cardizem CD] 180 mg PO DAILY #30 cap.er.24h 10/14/16 [Rx] Calcium Carbonate [Calcium] 500 mg PO DAILY 12/06/16 [History] Cholecalciferol (D-3) [Vitamin D] 1,000 unit PO DAILY 12/06/16 [History] Docusate [Colace] 100 mg PO DAILY PRN 12/06/16 [History] Ipratropium/Albuterol Neb [Duoneb] 3 ml IH BID 12/06/16 [History] Multivit-Min/Iron/Folic/Lutein [Centrum Silver Women Tablet] 1 tab PO DAILY 05/15 [History] Multivits Min/Iron/FA/Herb#186 [Hair, Skin and Nails Caplet] 1 tab PO DAILY 05/15 [History] Vitamin E Acid Succinate [Vitamin E] 400 unit PO DAILY 12/06/16 [History] Acetaminophen w/Cod 300-30 mg [Tylenol w/Codeine #3] 1 tab PO TID PRN 12/31/16 [ History] Lactobacillus [Culturelle] 1 each PO BID #30 cap.sprink 01/04/17 [Rx] hydrALAZINE [HydrALAZINE] 25 mg PO QID #120 tablet 01/04/17 [Rx] Atorvastatin Calcium [Lipitor] 20 mg PO BID 06/04/17 [History] Febuxostat [Uloric] 40 mg PO DAILY 06/04/17 [History] Ferrous Gluconate 324 mg PO Q48H 06/04/17 [History] GuaiFENesin ER [Mucinex] 600 mg PO BID PRN 06/04/17 [History] Metoprolol [Lopressor] 50 mg PO BID 06/04/17 [History] [place]-3 Fatty Acids [Fish Oil] 300 mg PO DAILY 06/04/17 [History] Pantoprazole Sodium 40 mg PO BID 06/04/17 [History] metFORMIN [Glucophage] 1,000 mg PO BID 06/04/17 [History] Umeclidinium Brm/Vilanterol Tr [Anoro Ellipta 62.5-25 Mcg INH] 1 each IH DAILY # 1 blst.w.dev 06/07/17 [Rx] Bumetanide [Bumex] 2 mg PO BID 08/02/17 [History] Celecoxib [Celebrex] 100 mg PO DAILY 08/02/17 [History] Fluticasone Propionate Nasal [Flonase] 50 mcg NS DAILY 08/02/17 [History] Cefepime HCl [Maxipime] 1,000 mg IVPB Q12HR #3 vial 08/08/17 [Rx] Insulin Glargine,Hum.rec.anlog [Lantus Solostar] 10 unit SQ HS 30 Days mls 05/16 [Rx] Lisinopril [Zestril] 10 mg PO DAILY tablet 08/08/17 [Rx] predniSONE [PredniSONE] 10 mg PO DAILY 12 Days tablet 08/08/17 [Rx] Allergies/Adverse Reactions: 3 Allergy/AdvReac Type Severity Reaction Status Date / Time No Known Allergies Allergy Verified 08/23/16 19:46 Date of admission: 08/02/17 20:48 Primary care physician: Eduardo Hernandez Jr, MD - Patient Status Disposition: Transfer SNF Condition: Fair Overall status at discharge: patient is progressing back to baseline - Discharge Instructions Follow Up With: Eduardo Hernandez Jr, MD [Primary Care Provider] - Additional Instructions: Follow-up with primary care physician as outpatient. Complete cefepime doses on August 09 2017. Prednisone taper as follows: 40 mg PO daily x 3 days , then 30 mg daily for 3 days, 20 mg for 3 days, 10 mg for 3 days. Can use 10 units of Lantus at night while being on steroids. - Diet and Activity Activity: increase activity as tolerated Diet: diabetic diet Hospital course: Ms. Pollack is a 71 year old female with medical history of diastolic CHF, COPD oxygen dependent, DVT 39 years ago, diabetes controlled by oral anti- hyperglycemic medications, steroid induced hyperglycemia HLD and HTN presented to the ED with a chief complaint of shortness of breath and dyspnea for the past several days prior to admission. Patient states she normally used 3-4L of home oxygen and was told by her PCP to increase to 8-12L when necessary. Patient's daughter states her SPO2 has been in the high 80s even w/increased Ls. Weight increased approximately 8 pounds in 7 days, she was experiencing shortness of breath and dyspnea, as well as orthopnea. Multifactorial-Secondary to acute diastolic CHF exacerbation, HCAP, and acute COPD exacerbation. Improved on IV Bumex 2 mg twice a day. sputum culture positive for Pseudomonas Aeruginosa, continue cefepime and respiratory viral panel was negative CT scan of the chest showed:1. Limited evaluation of the segmental and subsegmental pulmonary arterial branches. No central pulmonary embolism is detected. 2. Increasing collapsing consolidation within the lower lobes bilaterally, the right middle lobe, and the peripheral aspect of left upper lobe. Although some of this likely represents scarring, a component of acute pneumonia is considered likely. This process should be followed to resolution. Received 3 days of Zosyn, was switched to cefepime, today is day 3, in total she has received 6 days of antibiotics. Stable to be transferred to an extended care facility. - Time Spent with Patient Total time spent providing and/or coordinating discharge services: Greater than 30 minutes (40 min) - Constitutional Vitals: Temp Pulse Resp BP Pulse Ox 97.9 F 72 20 151/87 88 08/08/17 11:28 08/08/17 11:28 08/08/17 11:28 08/08/17 11:28 08/08/17 11:28 General appearance: Present: cooperative, A&O X 3, morbidly obese, pleasant, no acute distress, answers questions appropriately - Head Head exam: Present: atraumatic, normocephalic - Eye Eye exam: Present: PERRL, conjuntiva pink, sclera anicteric Pupils: Present: PERRL - Neck Neck exam general surgery: Present: supple, trachea midline. Absent: lymphadenopathy - Respiratory Respiratory exam: Present: CTAB. Absent: accessory muscle use, rales, rhonchi, wheezes - Cardiovascular Cardiovascular exam: Present: RRR, +S1, +S2. Absent: diastolic murmur, gallop, rubs, systolic murmur - GI/Abdominal GI/Abdominal exam: Present: normal bowel sounds, soft, no peritoneal signs. Absent: distended, tenderness - Extremities Exam Extremities exam: Present: warm, radial pulses palpable and symmetrical. Absent : calf tenderness, cyanotic, pedal edema - Neurological Exam Neurological exam: Present: CN II-XII intact, oriented X3, no focal deficits. Absent: pronater drift, facial droop, speech deficit - Skin Skin exam: Present: dry, intact - VTE Documentation of Mechanical Device: Intermittent pneumatic compression device
--- NOTE | 2017-08-08 14:27 | Physician Discharge Referral ---
ExtendedCare Referral Info Provider in Charge after Transfer: PCP Institutional Level of Care: Skilled - Diagnosis (1) Pseudomonas pneumonia Status: Acute (2) Acute exacerbation of chronic obstructive airways disease Status: Acute (3) CKD (chronic kidney disease) stage 3, GFR 30-59 ml/min Status: Chronic (4) Acute and chronic respiratory failure with hypoxia Status: Acute (5) Diabetes Status: Chronic (6) HLD (hyperlipidemia) Status: Chronic (7) HTN (hypertension) Status: Chronic (8) HCAP (healthcare-associated pneumonia) Status: Acute - Transfer Medications Prescriptions: Cefepime HCl [Maxipime] 1,000 mg IVPB Q12HR #3 vial Insulin Glargine,Hum.rec.anlog [Lantus Solostar] 10 unit SQ HS 30 Days mls predniSONE [PredniSONE] 10 mg PO DAILY 12 Days tablet Home Medications: Albuterol Sulfate [Albuterol Inhaler] 2 puff IH Q4H PRN 08/23/16 [History] Amitriptyline [Elavil] 10 mg PO HS 08/23/16 [History] Ascorbate Calcium [Vitamin C] 500 mg PO DAILY 08/23/16 [History] Vitamin B Complex 1 cap PO DAILY 08/23/16 [History] Nystatin POWDER [Nystop] 1 appl TP BID #1 bottle 08/27/16 [Rx] Oxygen 2 l NS CONT 09/21/16 [History] Diltiazem CD (24hr) [Cardizem CD] 180 mg PO DAILY #30 cap.er.24h 10/14/16 [Rx] Calcium Carbonate [Calcium] 500 mg PO DAILY 12/06/16 [History] Cholecalciferol (D-3) [Vitamin D] 1,000 unit PO DAILY 12/06/16 [History] Docusate [Colace] 100 mg PO DAILY PRN 12/06/16 [History] Ipratropium/Albuterol Neb [Duoneb] 3 ml IH BID 12/06/16 [History] Multivit-Min/Iron/Folic/Lutein [Centrum Silver Women Tablet] 1 tab PO DAILY 05/15 [History] Multivits Min/Iron/FA/Herb#186 [Hair, Skin and Nails Caplet] 1 tab PO DAILY 05/15 [History] Vitamin E Acid Succinate [Vitamin E] 400 unit PO DAILY 12/06/16 [History] Acetaminophen w/Cod 300-30 mg [Tylenol w/Codeine #3] 1 tab PO TID PRN 12/31/16 [ History] Lactobacillus [Culturelle] 1 each PO BID #30 cap.sprink 01/04/17 [Rx] hydrALAZINE [HydrALAZINE] 25 mg PO QID #120 tablet 01/04/17 [Rx] Atorvastatin Calcium [Lipitor] 20 mg PO BID 06/04/17 [History] Febuxostat [Uloric] 40 mg PO DAILY 06/04/17 [History] Ferrous Gluconate 324 mg PO Q48H 06/04/17 [History] GuaiFENesin ER [Mucinex] 600 mg PO BID PRN 06/04/17 [History] Metoprolol [Lopressor] 50 mg PO BID 06/04/17 [History] [place]-3 Fatty Acids [Fish Oil] 300 mg PO DAILY 06/04/17 [History] Pantoprazole Sodium 40 mg PO BID 06/04/17 [History] metFORMIN [Glucophage] 1,000 mg PO BID 06/04/17 [History] Umeclidinium Brm/Vilanterol Tr [Anoro Ellipta 62.5-25 Mcg INH] 1 each IH DAILY # 1 blst.w.dev 06/07/17 [Rx] Bumetanide [Bumex] 2 mg PO BID 08/02/17 [History] Celecoxib [Celebrex] 100 mg PO DAILY 08/02/17 [History] Fluticasone Propionate Nasal [Flonase] 50 mcg NS DAILY 08/02/17 [History] Cefepime HCl [Maxipime] 1,000 mg IVPB Q12HR #3 vial 08/08/17 [Rx] Insulin Glargine,Hum.rec.anlog [Lantus Solostar] 10 unit SQ HS 30 Days mls 05/16 [Rx] Lisinopril [Zestril] 10 mg PO DAILY tablet 08/08/17 [Rx] predniSONE [PredniSONE] 10 mg PO DAILY 12 Days tablet 08/08/17 [Rx] Allergies/Adverse Reactions: 3 Allergy/AdvReac Type Severity Reaction Status Date / Time No Known Allergies Allergy Verified 08/23/16 19:46 - Respiratory Orders Smoking Cessation: Smoking cessation has been advised. For more information, call the [place] Tobacco Quit Line at 1-751-NXUZ-NOW. - Advance Directives Code Status: Full Code - Rehabiliation Orders Other: Follow-up with primary care physician as outpatient. Complete cefepime doses on August 09 2017. Prednisone taper as follows: 40 mg PO daily x 3 days , then 30 mg daily for 3 days, 20 mg for 3 days, 10 mg for 3 days. Can use 10 units of Lantus at night while being on steroids. CERTIFICATION: I certify that the transfer of the above named patient to an Extended Care Facility is necessary for the continuing treatment of the diagnosis listed. The above information is true and accurate reflection of patient's current condition. Confidential - Redisclosure prohibited without a patient's written consent.
== END 2017-08-08 20:15 | DRG 177 ==
LOC: EMEROO 11:21 → 2NENU 20:48 → SUATTDRO 20:48 → 2NENU 21:32
PROVIDERS: ADMIT Pediatrics; ATTEND Internal Medicine

== ENCOUNTER 2017-08-27 22:14 | Inpatient (IN) ==
[2017-08-27] MEDS ORDERED: Ondansetron 4 MG/2 ML VIAL IVP ONE (22:38)
[2017-08-27] MEDS ORDERED: 0.9 % Sodium Chloride 1,000 ML IVC ONE (22:39)
[2017-08-27 22:55] LABS: Basophils % 0.4 %; Eosinophils % 0.3 %; Hematocrit 40.3 % (35.3-44.9); Hemoglobin 12.5 g/dL (11.5-15.4); Immature Granulocytes % 0.5 % (0-4); Lymphocytes # 1.1 K/mcL (0.6-4.6); Lymphocytes % 11.5 %; Mean Corpuscular Hemoglobin 26.2 pg (28.0-33.3); Mean Corpuscular Volume 84.5 fL (83.0-100.0); Mean Platelet Volume 10.4 fL (9.4-12.4); Monocytes # 1.3 K/mcL (0.0-1.3); Monocytes % 14.2 %; Platelet Count 260 K/mcL (140-400); Red Blood Count 4.77 M/mcL (3.82-4.97); Red Cell Distribution Width 20.4 % (11.5-14.5); Segmented Neutrophils % 73.1 %
--- NOTE | 2017-08-27 22:55 | Emergency Department Note ---
Disposition Clinical Impression: MARISSA (acute kidney injury), Partial small bowel obstruction Nausea and vomiting Qualifiers: Vomiting type: unspecified Vomiting Intractability: non-intractable Qualified Code(s): R11.2 - Nausea with vomiting, unspecified Disposition: Admitted As Inpatient Condition: Good Time of Disposition: 00:38 General Adult HPI - General Chief complaint: ED Nausea/Vomiting/Diarrhea Stated complaint: N/V Time Seen by Provider: 08/27/17 22:44 Source: patient Limitations: no limitations Nursing Notes Reviewed: Yes Vital Signs Reviewed: Yes - History of Present Illness HPI Narrative: Patient is a 71-year-old female the patient's emergency department for 3-4 days of vomiting. She states that she has a belly ache. States that she cannot eat otherwise she vomits. No diarrhea but states that she is having some constipation. Had symptoms like this in the past and it was related to an ulcer. Patient denies any blood in her vomit. Unsure of any sick contacts. States that she has taken some antacids which has seemed to help. Pain Scale: 6 - Related Data Home Medications Medication Instructions Recorded Confirmed Albuterol Sulfate [Albuterol 2 puff IH Q4H PRN 08/23/16 08/02/17 Inhaler] Amitriptyline [Elavil] 10 mg PO HS 08/23/16 08/02/17 Ascorbate Calcium [Vitamin C] 500 mg PO DAILY 08/23/16 08/02/17 Vitamin B Complex 1 cap PO DAILY 08/23/16 08/02/17 Oxygen 2 l NS CONT 09/21/16 08/02/17 Calcium Carbonate [Calcium] 500 mg PO DAILY 12/06/16 08/02/17 Cholecalciferol (D-3) [Vitamin D] 1,000 unit PO DAILY 12/06/16 08/02/17 Docusate [Colace] 100 mg PO DAILY PRN 12/06/16 08/02/17 Ipratropium/Albuterol Neb [Duoneb] 3 ml IH BID 12/06/16 08/02/17 Multivit-Min/Iron/Folic/Lutein 1 tab PO DAILY 12/06/16 08/02/17 [Centrum Silver Women Tablet] Multivits Min/Iron/FA/Herb#186 1 tab PO DAILY 12/06/16 08/02/17 [Hair, Skin and Nails Caplet] Vitamin E Acid Succinate [Vitamin 400 unit PO DAILY 12/06/16 08/02/17 E] Acetaminophen w/Cod 300-30 mg 1 tab PO TID PRN 12/31/16 08/02/17 [Tylenol w/Codeine #3] Atorvastatin Calcium [Lipitor] 20 mg PO BID 06/04/17 08/02/17 Febuxostat [Uloric] 40 mg PO DAILY 06/04/17 08/02/17 Ferrous Gluconate 324 mg PO Q48H 06/04/17 08/02/17 GuaiFENesin ER [Mucinex] 600 mg PO BID PRN 06/04/17 08/02/17 Metoprolol [Lopressor] 50 mg PO BID 06/04/17 08/02/17 [place]-3 Fatty Acids [Fish Oil] 300 mg PO DAILY 06/04/17 08/02/17 Pantoprazole Sodium 40 mg PO BID 06/04/17 08/02/17 metFORMIN [Glucophage] 1,000 mg PO BID 06/04/17 08/02/17 Bumetanide [Bumex] 2 mg PO BID 08/02/17 08/02/17 Celecoxib [Celebrex] 100 mg PO DAILY 08/02/17 08/02/17 Fluticasone Propionate Nasal 50 mcg NS DAILY 08/02/17 08/02/17 [Flonase] Previous Rx's Medication Instructions Recorded Nystatin POWDER [Nystop] 1 appl TP BID #1 bottle 08/27/16 Diltiazem CD (24hr) [Cardizem CD] 180 mg PO DAILY #30 cap.er.24h 10/14/16 Lactobacillus [Culturelle] 1 each PO BID #30 cap.sprink 01/04/17 hydrALAZINE [HydrALAZINE] 25 mg PO QID #120 tablet 01/04/17 Umeclidinium Brm/Vilanterol Tr 1 each IH DAILY #1 blst.w.dev 06/07/17 [Anoro Ellipta 62.5-25 Mcg INH] Cefepime HCl [Maxipime] 1,000 mg IVPB Q12HR #3 vial 08/08/17 Insulin Glargine,Hum.rec.anlog 10 unit SQ HS 30 Days mls 08/08/17 [Lantus Solostar] Lisinopril [Zestril] 10 mg PO DAILY tablet 08/08/17 predniSONE [PredniSONE] 10 mg PO DAILY 12 Days tablet 08/08/17 Allergies Allergy/AdvReac Type Severity Reaction Status Date / Time No Known Allergies Allergy Verified 08/23/16 19:46 All systems ED: reviewed and negative except as stated. Constitutional: Denies: fever Respiratory: Reports: dyspnea Gastrointestinal: Reports: abdominal pain, nausea, vomiting, constipation Past Medical History - Past Medical History Medical history: Reports: arthritis, atrial fibrillation, CHF, COPD, DVT, diabetes, hyperlipidemia, hypertension, pulmonary embolus, renal disease Surgical history: Reports: appendectomy, Psychiatric history: Reports: anxiety, depression - Social History Smoking Status: Former smoker Smokeless Tobacco Status: No Alcohol use: Reports: none Drug use: Reports: none Physical Exam - General Limitations: no limitations General appearance: alert, in no apparent distress - Head Head exam: atraumatic, normocephalic - Eye Eye exam: Present: normal appearance, EOMI - Neck Neck exam: Present: normal inspection, full ROM, trachea midline - Respiratory Respiratory exam: Present: normal lung sounds bilaterally. Absent: respiratory distress, wheezes - Cardiovascular Cardiovascular exam: Present: regular rate, normal rhythm, normal heart sounds, +S1, +S2 - Abdominal Exam Abdominal exam: Present: soft, tenderness, normal bowel sounds Abdominal tenderness: Present: LUQ, mild - Neurological Exam Neurological exam: Present: alert, oriented X3 - Psychiatric Psychiatric exam: Present: normal affect, normal mood - Skin Skin exam: Present: warm, dry, intact Course Vital Signs Temperature 97.4 F L 08/27/17 22:16 Pulse Rate 94 08/27/17 22:16 Respiratory Rate 20 08/27/17 22:16 Blood Pressure 89/49 08/27/17 22:16 O2 Sat by Pulse Oximetry 86 08/27/17 22:16 Temperature 97.4 F L 08/27/17 22:16 Pulse Rate 87 08/28/17 01:00 Respiratory Rate 18 08/28/17 01:20 Blood Pressure 122/56 08/28/17 01:20 O2 Sat by Pulse Oximetry 91 08/28/17 00:15 Oxygen Delivery Oxygen Delivery Nasal Cannula Medical Decision Making - MDM Narrative Medical decision making narrative: Due to the patient having nausea nausea and vomiting and not feeling well we have obtained a CBC, CMP, troponin and chest x-ray and EKG. The patient's troponin was negative the CMP did show an acute kidney injury. The patient does state that she had a recent change in her medications and has not been able to keep down fluids. Patient's EKG showed a sinus rhythm. Chest x-ray showed overall improved aeration of the lungs with persistent multifocal consolidation, atelectasis and/or scarring. The patient will need to be admitted to the hospital for further evaluation and management. I called the hospitalist and they have accepted the patient to their service. The patient be admitted to the hospital at this time. They have requested that we obtain a CT scan of the abdomen and pelvis as well as a lipase. This will be done prior to the patient being admitted to the hospital. The CT scan did show possibility of a small bowel obstruction. I called and spoke with Dr. Romero and he said that he was aware of this. - Medical Records Medical records reviewed: Yes I reviewed the patient's medical records. - Lab Data Lab results reviewed: Yes I reviewed the patient's lab results. Result diagrams: 08/27/17 22:32 08/27/17 22:32 Lab Results 08/27/17 08/27/17 08/27/17 Range/Units 22:32 22:32 22:32 WBC 9.4 (4.3-11.1) K/mcL RBC 4.77 (3.82-4.97) M/mcL Hgb 12.5 (11.5-15.4) g/dL Hct 40.3 (35.3-44.9) % MCV 84.5 (83.0-100.0) fL MCH 26.2 L (28.0-33.3) pg MCHC 31.0 L (31.6-35.5) g/dL RDW 20.4 H (11.5-14.5) % Plt Count 260 (140-400) K/mcL MPV 10.4 (9.4-12.4) fL Immature Gran % 0.5 (0-4) % Seg Neutrophils % 73.1 % Lymphocytes % 11.5 % Monocytes % 14.2 % Eosinophils % 0.3 % Basophils % 0.4 % Neutrophils # 6.9 (1.6-8.9) K/mcL Lymphocytes # 1.1 (0.6-4.6) K/mcL Monocytes # 1.3 (0.0-1.3) K/mcL Eosinophils # 0.0 (0.0-0.6) K/mcL Basophils # 0.0 (0.0-0.2) K/mcL Platelet Estimate Normal (Normal) Sodium 137 (136-145) mEq/L Potassium 4.2 (3.5-5.1) mEq/L Chloride 92 L (98-107) mEq/L Carbon Dioxide 27 (23-29) mEq/L BUN 62 H (8-23) mg/dL Creatinine 3.38 H (0.60-1.20) mg/dL Est GFR ( Amer) 16 L (> 60) Est GFR (Non-Af Amer) 13 L (> 60) BUN/Creatinine Ratio 18 (6-26) Glucose 162 H (70-105) mg/dL Calculated Osmolality 305 H (280-300) Calcium 9.5 (8.6-10.3) mg/dL Total Bilirubin 0.6 (0.3-1.0) mg/dL AST 11 L (13-39) Units/L ALT 14 (7-52) Units/L Alkaline Phosphatase 93 (34-104) Units/L Troponin I < 0.03 (< 0.04) ng/mL Serum Total Protein 7.7 (6.4-8.9) g/dL Albumin 4.0 (3.5-5.7) g/dL Globulin 3.7 H (2.4-3.5) g/dL Albumin/Globulin Ratio 1.1 (1.1-2.2) Lipase 21 (11-82) Units/L - Radiology Data Radiology results reviewed: Yes I reviewed the patient's radiology results. Chest X-Ray 08/27/17 22:51 IMPRESSION: Overall improved aeration of the lungs with persistent multifocal consolidation, atelectasis and/or scarring. Continued follow-up is recommended. D/ / Radha Mohan Cha, MD / Radha Mohan Cha, MD Interpreting Provider: Radha Mohan Cha, MD Chest X-Ray 08/27/17 22:51 IMPRESSION: Overall improved aeration of the lungs with persistent multifocal consolidation, atelectasis and/or scarring. Continued follow-up is recommended. D/ / Radha Mohan Cha, MD / Radha Mohan Cha, MD Interpreting Provider: Radha Mohan Cha, MD Abdomen/Pelvis CT 08/28/17 00:36 IMPRESSION: The stomach and proximal small bowel loops are dilated and fluid-filled with air-fluid levels. This gradually transitions to normal caliber distal small bowel without obvious focal transition point identified on limited noncontrast exam. Findings may be related to mechanical or functional partial small bowel obstruction. If indicated, follow-up imaging with oral contrast may be helpful. Small amount a gas is seen within the bladder. In the absence of recent instrumentation this may be related to cystitis. Cholelithiasis. D/ / Jo Hatfield MD / Jo Hatfield MD Interpreting Provider: Jo Hatfield MD - EKG Data EKG #1 EKG attestation: Yes I reviewed and interpreted this EKG. EKG results narrative: EKG showed a sinus rhythm at a rate of 90 bpm, OK interval of 117, QRS duration of 94, QTc of 405. There is no STEMI noted on EKG. This is compared to previous EKG on 08/02/17 which showed a sinus rhythm at a rate of 85 bpm. There is no acute changes noted between these 2 EKGs. Critical Care Time Critical Care Time: Yes Total Critical Care Time: 35 Attestation: Critical care performed: Time is exclusive of separately billable procedures. Time includes: direct patient care, patient reassessment, coordination of patient care, interpretation of data (laboratory data, radiology data, and respiratory data), review of patient's medical records, medical consultation and documentation of patient care. Procedures included in critical care time: Procedures excluded from critical care time: Attestation Statement - Attestation Attestation: I, Fabrizio Zabala MD, personally evaluated this patient and discussed their management with the resident physician. I reviewed the resident's note and agree with the documented findings, medical decision making, and plan of care. 71-year-old female presents to the emergency department with a complaint of nausea and vomiting for about 4 or 5 days prior to arrival. No diarrhea. In fact she has not had a bowel movement for about 6 days. She is passing gas. No fever. No melena, hematemesis, or hematochezia. No urinary symptoms. She complains of generalized weakness. On examination patient is a well-developed obese elderly female in no acute distress and she is alert and oriented 3. There is no cyanosis or diaphoresis. Breath sounds are decreased but equal bilaterally with no rales or wheezes noted. Heart regular rate and rhythm. Abdomen is soft and nontender with decreased bowel sounds. Labs reviewed. Significant acute increase in creatinine up to 3.38. Creatinine was right at 1.00 less than 3 weeks ago. The hospitalist, Dr. Romero, was consulted and accepted admission of the patient. He did request a CT of the abdomen which was obtained and did show a possible partial small bowel obstruction.
[2017-08-27 22:56] LABS: Neutrophils # 6.9 K/mcL (1.6-8.9)
[2017-08-27 23:13] LABS: Albumin/Globulin Ratio 1.1 (1.1-2.2); Bilirubin,Total 0.6 mg/dL (0.3-1.0); Calcium 9.5 mg/dL (8.6-10.3); Globulin 3.7 g/dL (2.4-3.5); Potassium 4.2 mEq/L (3.5-5.1); Total Protein 7.7 g/dL (6.4-8.9)
[2017-08-27 23:15] LABS: Platelet Estimate Normal (Normal)
[2017-08-28] MEDS ORDERED: Naloxone 0.4 MG/ML INJ IVP PRN (01:17)
[2017-08-28] MEDS ORDERED: *HR* Dextrose 50 % in Water (Syg) 50 ML SYRINGE IVP PRN (01:20)
[2017-08-28] MEDS ORDERED: Dextrose Gel 15 GM/37.5 ML TUBE PO PRN ×2 (01:20)
[2017-08-28] MEDS ORDERED: D5% in Water 1,000 ML IVC PRN (01:20)
[2017-08-28] MEDS ORDERED: Ipratropium/Albuterol Neb 3 ML IH PRN (01:22)
[2017-08-28] MEDS ORDERED: Ondansetron 4 MG/2 ML VIAL IVP PRN (01:27)
[2017-08-28] MEDS ORDERED: 0.9 % Sodium Chloride 1,000 ML IVC SCH (01:30)
--- NOTE | 2017-08-28 01:34 | Internal Med History&Physical ---
Date of Encounter: 08/28/17 Time of Encounter: 00:30 Assessment and Plan (1) Acute on chronic renal failure Current visit: Yes Status: Acute Patient has acute elevated creatinine level. CT abdominal shows no signs of hydronephrosis or hydroureter. Consider prerenal disease because by nausea and vomiting. - We will give IV fluid and follow-up renal function - Avoid nephrotoxic medications - May consider nephrology consult if MARISSA persists Qualifiers: Acute renal failure type: unspecified Chronic kidney disease stage: stage 3 (moderate) Qualified Code(s): N17.9 - Acute kidney failure, unspecified; N18.3 - Chronic kidney disease, stage 3 (moderate); N18.3 - Chronic kidney disease, stage 3 (moderate) (2) Type 2 diabetes mellitus Current visit: No Status: Chronic Patient to use metformin at home. Will cover patient with sliding scale insulin Qualifiers: Diabetes mellitus complication status: with unspecified complications Diabetes mellitus care home insulin use: without care home use Qualified Code( s): E11.8 - Type 2 diabetes mellitus with unspecified complications (3) UTI (urinary tract infection) Current visit: No Status: Acute CT abdomen shows cystitis. Will check urinalysis. Patient has no symptoms. Qualifiers: Urinary tract infection type: acute cystitis Hematuria presence: without hematuria Qualified Code(s): N30.00 - Acute cystitis without hematuria (4) Morbid obesity with BMI of 45.0-49.9, adult Current visit: No Status: Chronic Need lifestyle modification (5) COPD (chronic obstructive pulmonary disease) Current visit: No Status: Acute Stable. No signs of exacerbation. Patient is on chronic prednisone. Will change to stress doses of hydrocortisone as patient has acute disease. Qualifiers: COPD type: COPD with acute exacerbation Qualified Code(s): J44.1 - Chronic obstructive pulmonary disease with (acute) exacerbation (6) DVT prophylaxis Current visit: No Status: Acute Heparin subcutaneously (7) Nausea and vomiting Current visit: Yes Status: Acute Probably due to small bowel obstruction. Will place patient on nothing by mouth , IV fluid. Symptomatic treatments with Zofran Qualifiers: Vomiting type: unspecified Vomiting Intractability: non-intractable Qualified Code(s): R11.2 - Nausea with vomiting, unspecified (8) Partial small bowel obstruction Current visit: Yes Status: Acute Place patient on nothing by mouth, IV fluid. Advance diet as symptoms improve. (9) Chronic steroid use Current visit: Yes Status: Acute Patient was on prednisone on and off for about 6 months. Will hold the prednisone when patient in the hospital, place a stress dose of hydrocortisone to prevent adrenal crisis Internal Medicine - H&P: HPI Chief complaint: Nausea and vomiting Admitted From: Home Plans for Post Hospital Care: Home History of present illness: Ms. Pollack is a 71 year old female with history of CHF, COPD, diabetes, history of appendix surgery, presented to ER for nausea and vomiting since last . Patient said the vomiting is clear liquid and what she eats, no blood in it. The vomiting is about 1-2 times a day. Patient has a poor appetite and intake. Patient denies diarrhea. Patient has mild left-sided abdominal pain. Patient denies a fever. Patient denies increased shortness of breath. Patient has no bowel movement since last Sunday. Patient said she can pass gas but not as much as before. In emergency room, CT abd shows partial small bowel obstruction. Patient was admitted for further management. Past Med Surg Social Fam HX - Past Medical History Medical history: arthritis, atrial fibrillation, CHF, COPD, DVT, diabetes, hyperlipidemia, hypertension, pulmonary embolus, renal disease Psychiatric history: anxiety, depression - Past Surgical History Surgical History: appendectomy, - Social History Smoking Status: Former smoker Smokeless Tobacco Status: No Alcohol use: none Drug use: none - Family History Mother Family Member Ethnicity: Non- Living Status: Hx Family Cardiac Disorders: Yes Hx Family Respiratory Disorders: Yes Hx Family Cancer: Yes (Lung) Hx Family GI Disorders: No Hx Family Endocrine Disorder: No Hx Family Neuromuscular Disorders: No Hx Family Neurologic Disorders: No Hx Family HEENT Disorders: No Hx Family Autoimmune Disorders: No Father Family Member Ethnicity: Non- Living Status: Hx Family Cancer: Yes (Leukemia) Brother Family Member Ethnicity: Non- Living Status: Hx Family Cancer: Yes (Lung) Sister Family Member Ethnicity: Non- Living Status: Still Living Hx Family Cancer: Yes (Lymphoma) Internal Medicine - H&P: Meds Albuterol Sulfate [Albuterol Inhaler] 2 puff IH Q4H PRN 08/23/16 [History] Amitriptyline [Elavil] 10 mg PO HS 08/23/16 [History] Ascorbate Calcium [Vitamin C] 500 mg PO DAILY 08/23/16 [History] Vitamin B Complex 1 cap PO DAILY 08/23/16 [History] Nystatin POWDER [Nystop] 1 appl TP BID #1 bottle 08/27/16 [Rx] Oxygen 2 l NS CONT 09/21/16 [History] Diltiazem CD (24hr) [Cardizem CD] 180 mg PO DAILY #30 cap.er.24h 10/14/16 [Rx] Calcium Carbonate [Calcium] 500 mg PO DAILY 12/06/16 [History] Cholecalciferol (D-3) [Vitamin D] 1,000 unit PO DAILY 12/06/16 [History] Docusate [Colace] 100 mg PO DAILY PRN 12/06/16 [History] Ipratropium/Albuterol Neb [Duoneb] 3 ml IH BID 12/06/16 [History] Multivit-Min/Iron/Folic/Lutein [Centrum Silver Women Tablet] 1 tab PO DAILY 05/15 [History] Multivits Min/Iron/FA/Herb#186 [Hair, Skin and Nails Caplet] 1 tab PO DAILY 05/15 [History] Vitamin E Acid Succinate [Vitamin E] 400 unit PO DAILY 12/06/16 [History] Acetaminophen w/Cod 300-30 mg [Tylenol w/Codeine #3] 1 tab PO TID PRN 12/31/16 [ History] Lactobacillus [Culturelle] 1 each PO BID #30 cap.sprink 01/04/17 [Rx] hydrALAZINE [HydrALAZINE] 25 mg PO QID #120 tablet 01/04/17 [Rx] Atorvastatin Calcium [Lipitor] 20 mg PO BID 06/04/17 [History] Febuxostat [Uloric] 40 mg PO DAILY 06/04/17 [History] Ferrous Gluconate 324 mg PO Q48H 06/04/17 [History] GuaiFENesin ER [Mucinex] 600 mg PO BID PRN 06/04/17 [History] Metoprolol [Lopressor] 50 mg PO BID 06/04/17 [History] [place]-3 Fatty Acids [Fish Oil] 300 mg PO DAILY 06/04/17 [History] Pantoprazole Sodium 40 mg PO BID 06/04/17 [History] metFORMIN [Glucophage] 1,000 mg PO BID 06/04/17 [History] Umeclidinium Brm/Vilanterol Tr [Anoro Ellipta 62.5-25 Mcg INH] 1 each IH DAILY # 1 blst.w.dev 06/07/17 [Rx] Bumetanide [Bumex] 2 mg PO BID 08/02/17 [History] Celecoxib [Celebrex] 100 mg PO DAILY 08/02/17 [History] Fluticasone Propionate Nasal [Flonase] 50 mcg NS DAILY 08/02/17 [History] Cefepime HCl [Maxipime] 1,000 mg IVPB Q12HR #3 vial 08/08/17 [Rx] Insulin Glargine,Hum.rec.anlog [Lantus Solostar] 10 unit SQ HS 30 Days mls 05/16 [Rx] Lisinopril [Zestril] 10 mg PO DAILY tablet 08/08/17 [Rx] predniSONE [PredniSONE] 10 mg PO DAILY 12 Days tablet 08/08/17 [Rx] 3 Allergy/AdvReac Type Severity Reaction Status Date / Time No Known Allergies Allergy Verified 08/23/16 19:46 All Systems PM: A 10-system review of systems was performed and is negative for pertinent findings except as documented above in the HPI. - Constitutional Vitals: Temp Pulse Resp BP Pulse Ox 97.4 F L 87 18 122/56 91 08/27/17 22:16 08/28/17 01:00 08/28/17 01:20 08/28/17 01:20 08/28/17 00:15 General appearance: Present: A&O X 3, no acute distress, answers questions appropriately - Head Head exam: Present: atraumatic, normocephalic - Eye Eye exam: Present: PERRL, conjuntiva pink, sclera anicteric Pupils: Present: PERRL - Neck Neck exam general surgery: Present: supple, trachea midline. Absent: lymphadenopathy - Respiratory Respiratory exam: Present: CTAB. Absent: accessory muscle use, rales, rhonchi, wheezes - Cardiovascular Cardiovascular exam: Present: RRR, +S1, +S2. Absent: diastolic murmur, gallop, rubs, systolic murmur - GI/Abdominal GI/Abdominal exam: Present: hyperactive bowel sounds, normal bowel sounds, soft , tenderness (Mild tenderness on left lower quadrant, no rebound or guarding), no peritoneal signs. Absent: distended - Extremities Exam Extremities exam: Present: warm, radial pulses palpable and symmetrical. Absent : calf tenderness, cyanotic, pedal edema - Neurological Exam Neurological exam: Present: CN II-XII intact, oriented X3, no focal deficits. Absent: pronater drift, facial droop, speech deficit - Skin Skin exam: Present: dry, intact Internal Med - H&P Results - Labs CBC & Chem 7: 08/27/17 22:32 08/27/17 22:32
[2017-08-28] MEDS: 0.9 % Sodium Chloride 1,000 ML IVC SCH ×3 (03:07→17:50)
[2017-08-28] MEDS: Nystatin POWDER 30 GM BOTTLE TP SCH ×3 (03:07→22:33)
[2017-08-28 05:41] LABS: Basophils % 0.6 %; Eosinophils % 0.3 %; Hematocrit 37.7 % (35.3-44.9); Hemoglobin 11.7 g/dL (11.5-15.4); Immature Granulocytes % 0.9 % (0-4); Lymphocytes # 0.9 K/mcL (0.6-4.6); Lymphocytes % 12.6 %; Mean Corpuscular Hemoglobin 26.4 pg (28.0-33.3); Mean Corpuscular Volume 84.9 fL (83.0-100.0); Mean Platelet Volume 11.2 fL (9.4-12.4); Monocytes # 1.3 K/mcL (0.0-1.3); Neutrophils # 4.8 K/mcL (1.6-8.9); Platelet Count 224 K/mcL (140-400); Red Blood Count 4.44 M/mcL (3.82-4.97); Red Cell Distribution Width 20.3 % (11.5-14.5); Segmented Neutrophils % 67.6 %
[2017-08-28 05:52] LABS: Calcium 8.4 mg/dL (8.6-10.3); Potassium 4.8 mEq/L (3.5-5.1)
[2017-08-28 06:29] LABS: Platelet Estimate Normal (Normal)
[2017-08-28 06:31] LABS: Anisocytosis 1+ (Not Present); Burr Cells 2+ (Not Present)
[2017-08-28] MEDS: Acetaminophen IV 500 MG/50 ML INFUS..BTL IV PRN ×2 (06:41→22:33)
[2017-08-28] MEDS: *HR* Heparin 5,000 UNIT/ML VIAL SQ SCH ×2 (06:41→17:43)
[2017-08-28] MEDS: Insulin LISPRO 300 UNITS/3 ML VIAL SQ SCH ×3 (06:42→17:49)
[2017-08-28] MEDS ORDERED: Insulin LISPRO 300 UNITS/3 ML VIAL SQ SCH ×2 (07:30→21:00)
[2017-08-28] MEDS: Hydrocortisone Sodium Succ 100 MG/2 ML VIAL IVP SCH ×2 (07:52→15:34)
[2017-08-28 15:34] LABS: Potassium 4.6 mEq/L (3.5-5.1)
--- NOTE | 2017-08-28 16:36 | Internal Med Progress Note ---
Date of Encounter: 08/28/17 Time of Encounter: 10:50 - Assessment and plan (1) Partial small bowel obstruction Current Visit: Yes Status: Acute Assessment and plan: Patient presented to the emergency department for nausea and vomiting for 5 days. She reports clear liquid emesis, no hematemesis. She reports vomiting about 1-2 times a day with anorexia and decreased intake. She denies any diarrhea until today, when she reports large amount of dark liquid stool. She presented with mild left abdominal pain and constipation for 6 days. She is not obstipated. CT abdomen showed partial small bowel obstruction with no obvious transition point. Abdomen is distended and tender to palpation with no bowel sounds auscultated. NG tube will be inserted for decompression, we will consider consulting surgery if patient is not better tomorrow Continue IV fluid hydration Continue antiemetics as needed NG tube to low intermittent wall suction. Consider surgery consult if patient not improving tomorrow. (2) Obesity (BMI 30-39.9) Current Visit: Yes Status: Chronic Assessment and plan: Chronic. Lifestyle modifications. (3) Acute on chronic renal failure Current Visit: Yes Status: Chronic Assessment and plan: Patient presents with creatinine 3.38, considerably higher than her baseline of 1.2 or so. GFR 13 on admission, significantly decreased over her normal of 50s. Patient was treated with gentle IV fluid hydration GFR 11, serum creatinine 4.06. Most likely due to poor po intake and vomiting secondary to SBO. Electrolytes WNL. Nephrology consulted, I appreciate their consultation and recommendations. Continue to avoid nephrotoxins Qualifiers: Acute renal failure type: unspecified Chronic kidney disease stage: stage 3 (moderate) Qualified Code(s): N17.9 - Acute kidney failure, unspecified; N18.3 - Chronic kidney disease, stage 3 (moderate); N18.3 - Chronic kidney disease, stage 3 (moderate) (4) Chronic steroid use Current Visit: Yes Status: Chronic Assessment and plan: due to COPD. Continue after diet advanced. (5) Nausea and vomiting Current Visit: Yes Status: Acute Assessment and plan: Recent history, due to SBO. Continue IVF hydration and antiemetics Monitor labs. Qualifiers: Vomiting type: unspecified Vomiting Intractability: non-intractable Qualified Code(s): R11.2 - Nausea with vomiting, unspecified (6) COPD (chronic obstructive pulmonary disease) Current Visit: Yes Status: Chronic Assessment and plan: No acute exacerbation. Lungs clear and diminished throughout. No wheezing or respiratory distress. continue 02 to maintain sats > 92% Continue home medications and nebulizers PRN. Qualifiers: COPD type: unspecified COPD Qualified Code(s): J44.9 - Chronic obstructive pulmonary disease, unspecified (7) UTI (urinary tract infection) Current Visit: Yes Status: Suspected Assessment and plan: Urine remains on collected. CT abdomen pelvis shows small amount of gas in the bladder, in the absence of recent instrumentation, this may be related to cystitis. Order for straight catheter urine this evening. Qualifiers: Urinary tract infection type: acute cystitis Hematuria presence: without hematuria Qualified Code(s): N30.00 - Acute cystitis without hematuria (8) HLD (hyperlipidemia) Current Visit: Yes Status: Chronic Assessment and plan: Chronic. Continue home medications. Qualifiers: Hyperlipidemia type: pure hypercholesterolemia Qualified Code(s): E78.00 - Pure hypercholesterolemia, unspecified; E78.0 - Pure hypercholesterolemia (9) DVT prophylaxis Current Visit: Yes Status: Acute Assessment and plan: Heparin subcutaneous twice daily. - Time Spent With Patient less than 15 minutes - Subjective Interval history: Pt was seen at bedside at 1050 a.m. there was at bedside as well. Patient reports abdominal distention and tenderness with palpation. Patient states that she has had no bowel movement, however during the day she did have copious amounts of liquid stool per primary nurse. Patient's reports that she does not see a auto research engineer, patient and daughter are aware of nephrology consultation due to worsening renal function. NG tube will be inserted for gastric decompression. Patient denies any headache or dizziness, no chest pain breath. - Constitutional Vitals: Temp Pulse Resp BP Pulse Ox 98.3 F 60 16 119/67 95 08/28/17 14:56 08/28/17 14:56 08/28/17 14:56 08/28/17 14:56 08/28/17 14:56 General appearance: Present: cooperative, A&O X 3, pleasant, no acute distress, answers questions appropriately - Head Head exam: Present: atraumatic, normal inspection, normocephalic - Eye Eye exam: Present: normal appearance, conjuntiva pink, sclera anicteric - Neck Neck exam general surgery: Present: supple, trachea midline. Absent: lymphadenopathy, tenderness - Respiratory Respiratory exam: Present: CTAB. Absent: accessory muscle use, chest wall tenderness, rales, respiratory distress, rhonchi, wheezes - Cardiovascular Cardiovascular exam: Present: RRR, +S1, +S2. Absent: diastolic murmur, gallop, rubs, systolic murmur - GI/Abdominal GI/Abdominal exam: Present: diminished bowel sounds, distended, normal bowel sounds, soft, no peritoneal signs. Absent: tenderness - Extremities Exam Extremities exam: Present: normal capillary refill, normal inspection, warm, radial pulses palpable and symmetrical. Absent: calf tenderness, cyanotic, pedal edema, tenderness - Neurological Exam Neurological exam: Present: alert, oriented X3, no focal deficits, strengths equal and symetr throughout. Absent: facial droop, speech deficit - Skin Skin exam: Present: dry, intact, normal color, warm. Absent: rash Internal Medicine: Result - Labs CBC & Chem 7: 08/28/17 04:48 08/28/17 14:51 Labs: BMP 08/28/17 14:51 Sodium 137 Potassium 4.6 Chloride 100 Carbon Dioxide 24 BUN 75 H Creatinine 4.06 H Glucose 124 H Calcium 8.0 L Consult Discharge Plan - Plan Referrals: Eduardo Hernandez Jr, MD [Primary Care Provider] -
--- NOTE | 2017-08-28 16:59 | Nephrology Consult Note ---
Addendum entered and electronically signed by Nelly Stone CNP 08/28/17 17: 38: Increase IV fluids 0.9 to 125ml/hour Original Note: <Nelly Stone - Last Filed: 08/28/17 17:11> Date of Encounter: 08/28/17 Time of Encounter: 16:55 Assessment and Plan (1) Acute kidney injury Current Visit: Yes Status: Acute Review of past labs show a baseline GFR of 50-60 Agree with IV fluids MARISSA workup to include: UA, urine culture, urine creatinine, urine sodium, urine eosinophils, CPK, renal ultrasound, uric acid, and protein/creatinine ratio Strict I/Os Avoid nephrotoxins (4) Nausea and vomiting Current Visit: Yes Status: Acute Agree with IV fluids per primary team Qualifiers: Vomiting type: unspecified Vomiting Intractability: unspecified Qualified Code(s): R11.2 - Nausea with vomiting, unspecified (5) Type 2 diabetes mellitus Current Visit: No Status: Chronic per primary team Qualifiers: Diabetes mellitus complication status: with unspecified complications Diabetes mellitus [facility] insulin use: without [facility] use Qualified Code( s): E11.8 - Type 2 diabetes mellitus with unspecified complications History of Present Illness - Reason for Consult Consult date: 08/28/17 - Chief Complaint MARISSA, DM - History of Present Illness Ms. Pollack is a 71 year old female with history of CHF, COPD, diabetes, history of appendix surgery, presented to ER for nausea, vomiting and diarrhea since last . Patient has a poor appetite and intake along with abdominal pain. In emergency room, CT abd shows partial small bowel obstruction. Patient was admitted for further management. Nephrology has been consulted due to decrease kidney function with a GFR of 11. Patient denies any personal or family history of kidney disease. Denies any NSAID usage. Patient may have some confusion as she tells me she has diarrhea but no vomiting yet with other providers she has complained of the opposite. Past Med Surg Social Fam HX - Past Medical History Medical history: arthritis, atrial fibrillation, CHF, COPD, DVT, diabetes, hyperlipidemia, hypertension, pulmonary embolus, renal disease Psychiatric history: anxiety, depression - Past Surgical History Surgical History: appendectomy, - Social History Smoking Status: Former smoker Smokeless Tobacco Status: No Alcohol use: none Drug use: none - Family History Mother Family Member Ethnicity: Non- Living Status: Cause of : lung cancer Hx Family Cardiac Disorders: Yes (htn) Hx Family Respiratory Disorders: Yes Hx Family Cancer: Yes (lung) Hx Family GI Disorders: No Hx Family Endocrine Disorder: No Hx Family Neuromuscular Disorders: No Hx Family Neurologic Disorders: No Hx Family HEENT Disorders: No Hx Family Autoimmune Disorders: No Father Family Member Ethnicity: Non- Living Status: Age at : 52 Cause of : leukemia Hx Family Cancer: Yes (leukemia) Brother Family Member Ethnicity: Non- Living Status: Hx Family Cancer: Yes (Lung) Sister Family Member Ethnicity: Non- Living Status: Still Living Hx Family Cancer: Yes (Lymphoma) Medications and Allergies Albuterol Sulfate [Albuterol Inhaler] 2 puff IH Q4H PRN 08/23/16 [History] Amitriptyline [Elavil] 10 mg PO HS 08/23/16 [History] Ascorbate Calcium [Vitamin C] 500 mg PO DAILY 08/23/16 [History] Vitamin B Complex 1 cap PO DAILY 08/23/16 [History] Nystatin POWDER [Nystop] 1 appl TP BID #1 bottle 08/27/16 [Rx] Oxygen 5.5 l NS CONT 09/21/16 [History] Diltiazem CD (24hr) [Cardizem CD] 180 mg PO DAILY #30 cap.er.24h 10/14/16 [Rx] Calcium Carbonate [Calcium] 500 mg PO DAILY 12/06/16 [History] Cholecalciferol (D-3) [Vitamin D] 1,000 unit PO DAILY 12/06/16 [History] Docusate [Colace] 100 mg PO DAILY PRN 12/06/16 [History] Ipratropium/Albuterol Neb [Duoneb] 3 ml IH BID 12/06/16 [History] Multivit-Min/Iron/Folic/Lutein [Centrum Silver Women Tablet] 1 tab PO DAILY 05/15 [History] Multivits Min/Iron/FA/Herb#186 [Hair, Skin and Nails Caplet] 1 tab PO DAILY 05/15 [History] Vitamin E Acid Succinate [Vitamin E] 400 unit PO DAILY 12/06/16 [History] Acetaminophen w/Cod 300-30 mg [Tylenol w/Codeine #3] 1 tab PO TID PRN 12/31/16 [ History] Lactobacillus [Culturelle] 1 each PO BID #30 cap.sprink 01/04/17 [Rx] hydrALAZINE [HydrALAZINE] 25 mg PO QID #120 tablet 01/04/17 [Rx] Atorvastatin Calcium [Lipitor] 20 mg PO BID 06/04/17 [History] Febuxostat [Uloric] 40 mg PO DAILY 06/04/17 [History] Ferrous Gluconate 324 mg PO Q48H 06/04/17 [History] GuaiFENesin ER [Mucinex] 600 mg PO BID PRN 06/04/17 [History] Metoprolol [Lopressor] 50 mg PO BID 06/04/17 [History] [place]-3 Fatty Acids [Fish Oil] 300 mg PO DAILY 06/04/17 [History] Pantoprazole Sodium 40 mg PO BID 06/04/17 [History] metFORMIN [Glucophage] 1,000 mg PO BID 06/04/17 [History] Umeclidinium Brm/Vilanterol Tr [Anoro Ellipta 62.5-25 Mcg INH] 1 each IH DAILY # 1 blst.w.dev 06/07/17 [Rx] Bumetanide [Bumex] 2 mg PO BID 08/02/17 [History] Celecoxib [Celebrex] 100 mg PO DAILY 08/02/17 [History] Fluticasone Propionate Nasal [Flonase] 50 mcg NS DAILY 08/02/17 [History] Lisinopril [Zestril] 10 mg PO DAILY tablet 08/08/17 [Rx] predniSONE [PredniSONE] 10 mg PO DAILY 12 Days tablet 08/08/17 [Rx] Budesonide/Formoterol 160/4.5 [Symbicort 160/4.5] 1 puff IH AD 08/28/17 [History ] Furosemide [Lasix] 3 tab PO DAILY 08/28/17 [History] Tiotropium [Spiriva] 18 mcg IH 0700 08/28/17 [History] 3 Allergy/AdvReac Type Severity Reaction Status Date / Time No Known Allergies Allergy Verified 08/23/16 19:46 Review of Systems All Systems: reviewed and no additional remarkable complaints except as stated Constitutional: malaise, no fever(s), no increased appetite Cardiovascular: no chest pain, no dyspnea Respiratory: no cough Gastrointestinal: abdominal pain, diarrhea, nausea, vomiting Neurological: confusion Exam - Vital Signs Vital signs: Initial Vital Signs Temp Pulse Resp BP Pulse Ox 97.4 F L 94 20 89/49 86 08/27/17 22:16 08/27/17 22:16 08/27/17 22:16 08/27/17 22:16 08/27/17 22:16 Vital Signs - Last 8 Hours Temp Pulse Resp BP Pulse Ox 08/28/17 14:56 98.3 F 60 16 119/67 95 Intake and Output 08/28/17 08/28/17 08/28/17 07:59 15:59 23:59 Other: Meal NPO - General Appearance General appearance: obese EENT: ATNC, mucous membranes moist, hearing intact, vision intact Neck: supple Respiratory: clear Cardiology: no edema, normal S1, normal S2 Gastrointestinal: tenderness, no guarding, obese Integumentary: warm and dry Neurologic: confused Psychiatric: mood/affect appropriate, cooperative Results - Lab Results 08/28/17 04:48 08/28/17 14:51 Most recent lab results Calcium 8.0 mg/dL (8.6-10.3) L 08/28/17 14:51 Consult Discharge Plan - Plan Referrals: Magnus Donaldson DO [Partnered Physician] - 09/11/17 10:50 am (hospital follow-up ; discuss colonoscopy (patient has never had one), guiac positive stool) Eduardo Hernandez Jr, MD [Primary Care Provider] - 09/07/17 11:00 am <Karla Garcia - Last Filed: 09/05/17 13:45> Date of Encounter: 08/28/17 Assessment and Plan (1) Acute kidney injury Current Visit: Yes Status: Acute (2) Partial small bowel obstruction Current Visit: Yes Status: Resolved (3) CKD (chronic kidney disease) stage 3, GFR 30-59 ml/min Current Visit: Yes Status: Acute Exam - Vital Signs Vital signs: Initial Vital Signs Temp Pulse Resp BP Pulse Ox 97.4 F L 94 20 89/49 86 08/27/17 22:16 08/27/17 22:16 08/27/17 22:16 08/27/17 22:16 01/29/18 22:16 Vital Signs - Last 8 Hours Temp Pulse Resp BP Pulse Ox 09/05/17 10:57 97.6 F 66 16 159/63 95 09/05/17 08:07 16 90 09/05/17 07:00 98.0 F 65 18 174/66 92 Intake and Output 09/04/17 09/05/17 09/05/17 23:59 07:59 15:59 Intake Total 340 / 340 550 / 550 360 / 360 Balance 340 / 340 550 / 550 360 / 360 Intake: IV Fluids 100 / 100 100 / 100 Zosyn 3.375 GM In 0.9 % Sodium 100 / 100 100 / 100 Chloride 100 ML @ 25 mls/hr IVPB Q12H S[facility] Rx#:[id number] Oral 240 / 240 450 / 450 360 / 360 Other: Meal Dinner Lunch Percent of Meal Consumed 100% 75% Stool Size Moderate Stool Consistency loose Stool Color Brown # Voids 2 # Bowel Movements 1 Weight 107.409 kg Blood Glucose* 165 121 162 Patient Weight 09/05/17 23:59 Weight 107.409 kg Results - Lab Results 09/05/17 05:31 09/05/17 05:31 Most recent lab results Calcium 8.4 mg/dL (8.6-10.3) L 09/05/17 05:31 Magnesium 1.8 mg/dL (1.6-2.6) 09/04/17 09:39 Urine Creatinine 164 mg/dL 08/28/17 17:32 Urine Sodium 35.7 mEq/L 08/28/17 17:32 Urine Total Protein 36 mg/dL 08/28/17 17:32 - Attending Attestation I examined this patient and my medical decision-making was reviewed with the Resident Physician/CORPORATE STATISTICAL FINANCIAL ANALYST. I agree with the documented findings, disposition and treatment plan as described except to the extent set forth below. Pt seen and examined with daughters at bedside with PMH of DM, COPD and CHF admitted with N/V/D and being treated for SBO. Renal consulted for worsening renal fxn with GFR down to 11. Pt denies any prior history of renal disease and previous labs confirms this. IVF in place at 60cc/hr due to concerns for CHF but EF noted at 55%. UOP not impressiove. MARISSA appears to be due to volume depletion vs sepsis. Will increase IVF as I suspect rate not enough to correct deficit. GI workup per surgery, consulted with NGT placed so far. Will initiate MARISSA workup as well. Avoid neprhotoxins if possible. No acute indication for [facility] [place] just yet but a possibility if no improvement.
[2017-08-28 17:54] LABS: Sodium, Urine 35.7 mEq/L
[2017-08-28 17:56] LABS: Bilirubin,Urine Moderate (Negative); Blood,Urine Negative (Negative); Clarity,Urine Cloudy (Clear); Color,Urine Dark Yellow (Yellow); Glucose,Urine (UA) Normal (Normal); Ketones,Urine Trace mg/dL (Negative); Leukocyte Esterase,Urine Large (Negative); Nitrite,Urine Negative (Negative); PH,Urine 5.5 pH Units (5.0-8.0); Protein,Urine 30 mg/dL (Neg-Trace); Specific Gravity,Urine 1.021 (1.010-1.025); Urobilinogen,Urine Normal (Normal)
[2017-08-28 17:58] LABS: Bacteria,Urine Many per hpf (None-Few); RBC,Urine 0-3 per hpf (0-3); Squamous Epithelial Cell,Urine Many per lpf (None-Few); WBC,Urine 50-100 per hpf (0-3)
[2017-08-28 18:00] LABS: Protein/Creatinine Ratio,Urine 0.22 mg/mg (0.00-0.20)
[2017-08-28 18:24] LABS: Creatine Kinase < 10 Units/L (30-223); Uric Acid 9.6 mg/dL (2.3-7.6)
--- NOTE | 2017-08-28 19:46 | Electrocardiograph Report ---
[place] [id number] Test Date: 2017-08-27 Pat Name: Garima Pollack Department: 104 Room: 3B Gender: F Support Team Assoc: [facility] : 1945 Requested By: Fabrizio Zabala Order Number: [id number] Reading MD: Aury West Measurements Intervals [place] Rate: 90 P: -19 GA: 117 QRS: -6 QRSD: 94 T: 65 QT: 357 QTc: 405 Interpretive Statements SINUS RHYTHM WITH SHORT GA INTERVAL Electronically Signed On 08-28-2017 19:45:05 EST by Aury West
[2017-08-29] MEDS: Insulin LISPRO 300 UNITS/3 ML VIAL SQ SCH ×5 (00:18→23:54)
[2017-08-29] MEDS: Hydrocortisone Sodium Succ 100 MG/2 ML VIAL IVP SCH ×4 (00:25→23:54)
[2017-08-29] MEDS: 0.9 % Sodium Chloride 1,000 ML IVC SCH ×3 (02:05→18:04)
[2017-08-29] MEDS: *HR* Heparin 5,000 UNIT/ML VIAL SQ SCH ×2 (05:04→17:46)
[2017-08-29 05:21] LABS: Basophils % 0.5 %; Eosinophils % 0.4 %; Hematocrit 33.1 % (35.3-44.9); Immature Granulocytes % 1.2 % (0-4); Lymphocytes # 0.8 K/mcL (0.6-4.6); Mean Corpuscular HGB Conc 30.5 g/dL (31.6-35.5); Mean Corpuscular Hemoglobin 25.9 pg (28.0-33.3); Mean Corpuscular Volume 84.9 fL (83.0-100.0); Mean Platelet Volume 10.8 fL (9.4-12.4); Monocytes # 0.9 K/mcL (0.0-1.3); Monocytes % 11.3 %; Neutrophils # 6.2 K/mcL (1.6-8.9); Nucleated Red Blood Cells 0.4 /100 WBC (0); Platelet Count 213 K/mcL (140-400); Red Cell Distribution Width 19.7 % (11.5-14.5); Segmented Neutrophils % 76.6 %
[2017-08-29 05:28] LABS: Hemoglobin 10.1 g/dL (11.5-15.4)
[2017-08-29 05:39] LABS: Calcium 7.7 mg/dL (8.6-10.3); Potassium 4.7 mEq/L (3.5-5.1)
[2017-08-29 06:04] LABS: Anisocytosis 1+ (Not Present); Platelet Estimate Normal (Normal)
[2017-08-29] MEDS ORDERED: Calcium Gluconate 1,000 MG in D5% in Water 100 ML IVPB ONE (08:49)
[2017-08-29] MEDS ORDERED: Levofloxacin 750 MG/150 ML 750 MG/150 ML BAG IVPB SCH (09:00)
[2017-08-29] MEDS: Nystatin POWDER 30 GM BOTTLE TP SCH ×2 (10:17→21:51)
[2017-08-29] MEDS: Acetaminophen IV 500 MG/50 ML INFUS..BTL IV PRN ×2 (11:25→21:52)
--- NOTE | 2017-08-29 13:14 | Internal Med Progress Note ---
Date of Encounter: 08/29/17 Time of Encounter: 10:50 - Assessment and plan (1) Partial small bowel obstruction Current Visit: Yes Status: Acute Assessment and plan: NG tube in place for abdominal decompression, LIWS. KUB remains largely unchanged from prior. Abd is softer and non-tender today with hyperactive bowel sounds heard in all quadrants. surgery has been consulted today for recommendations for management of SBO and GI bleed with + stool occult blood. I appreciate their recommendations and consultation. Continue IV fluid hydration Continue antiemetics as needed Ice chips NG tube to low intermittent wall suction. (2) Obesity (BMI 30-39.9) Current Visit: Yes Status: Chronic Assessment and plan: Chronic. Lifestyle modifications. (3) Acute on chronic renal failure Current Visit: Yes Status: Chronic Assessment and plan: Patient presents with creatinine 3.38, considerably higher than her baseline of 1.2 or so. GFR 13 on admission, significantly decreased over her normal of 50s. Patient was treated with gentle IV fluid hydration GFR 11, serum creatinine 4.06. Most likely due to poor po intake and vomiting secondary to SBO. Electrolytes WNL. Nephrology consulted, I appreciate their consultation and recommendations. Continue to avoid nephrotoxins Continue increased rate of IVF hydration and recheck labs at 2000 tonight. Qualifiers: Acute renal failure type: unspecified Chronic kidney disease stage: stage 3 (moderate) Qualified Code(s): N17.9 - Acute kidney failure, unspecified; N18.3 - Chronic kidney disease, stage 3 (moderate); N18.3 - Chronic kidney disease, stage 3 (moderate) (4) Chronic steroid use Current Visit: Yes Status: Chronic Assessment and plan: due to COPD. Continue after diet tolerated. (5) Nausea and vomiting Current Visit: Yes Status: Resolved Assessment and plan: Recent history, due to SBO. Resovled. Pt denies n/v. Continue IVF hydration and antiemetics Monitor labs. Qualifiers: Vomiting type: unspecified Vomiting Intractability: unspecified Qualified Code(s): R11.2 - Nausea with vomiting, unspecified (6) COPD (chronic obstructive pulmonary disease) Current Visit: Yes Status: Chronic Assessment and plan: No acute exacerbation. Lungs clear and diminished throughout. No wheezing or respiratory distress. continue 02 to maintain sats > 92% Continue home medications and nebulizers PRN. Per daughter, pt normally wears 5L 02/NC at home, titrated with pulmonology. Qualifiers: COPD type: unspecified COPD Qualified Code(s): J44.9 - Chronic obstructive pulmonary disease, unspecified (7) UTI (urinary tract infection) Current Visit: Yes Status: Suspected Assessment and plan: Urine cloudy, with large amount leukocyte esterase, 50-100 microscopic white cells, many bacteria, many squamous epithelial cells which did not trigger a culture. She denies any urinary symptoms, low abdomen is nontender to palpation. Patient has no white count or fever., No treatment recommended at this time. CT abdomen pelvis shows small amount of gas in the bladder, in the absence of recent instrumentation, this may be related to cystitis. Qualifiers: Urinary tract infection type: acute cystitis Hematuria presence: without hematuria Qualified Code(s): N30.00 - Acute cystitis without hematuria (8) HLD (hyperlipidemia) Current Visit: Yes Status: Chronic Assessment and plan: Chronic. Continue home medications when po tolerated. Qualifiers: Hyperlipidemia type: pure hypercholesterolemia Qualified Code(s): E78.00 - Pure hypercholesterolemia, unspecified; E78.0 - Pure hypercholesterolemia (9) DVT prophylaxis Current Visit: Yes Status: Acute Assessment and plan: Heparin subcutaneous twice daily. - Time Spent With Patient less than 15 minutes - Subjective Interval history: Pt was seen at bedside at 1050 a.m. family x 2 at bedside. Patient reports that she is feeling better today and that her abdomen is less tender. NG tube remains for gastric decompression, approximately 2 liters dk contents removed from canister. Patient denies any headache or dizziness, no chest pain breath. - Constitutional Vitals: Temp Pulse Resp BP Pulse Ox 97.9 F 83 18 147/66 96 08/29/17 10:59 08/29/17 10:59 08/29/17 10:59 08/29/17 10:59 08/29/17 10:59 General appearance: Present: cooperative, A&O X 3, pleasant, no acute distress, obese, answers questions appropriately - Head Head exam: Present: atraumatic, normal inspection, normocephalic - Eye Eye exam: Present: normal appearance, conjuntiva pink, sclera anicteric - Neck Neck exam general surgery: Present: supple, trachea midline. Absent: lymphadenopathy, tenderness - Respiratory Respiratory exam: Present: CTAB. Absent: accessory muscle use, chest wall tenderness, rales, rhonchi, wheezes - Cardiovascular Cardiovascular exam: Present: RRR, +S1, +S2. Absent: diastolic murmur, gallop, rubs, systolic murmur - GI/Abdominal GI/Abdominal exam: Present: distended, normal bowel sounds, soft, no peritoneal signs. Absent: hepatomegaly, tenderness - Extremities Exam Extremities exam: Present: normal capillary refill, normal inspection, warm, radial pulses palpable and symmetrical. Absent: calf tenderness, cyanotic, pedal edema, tenderness - Neurological Exam Neurological exam: Present: alert, oriented X3, no focal deficits. Absent: facial droop, speech deficit - Skin Skin exam: Present: dry, intact, normal color, warm. Absent: rash Internal Medicine: Result - Labs CBC & Chem 7: 08/29/17 04:18 08/29/17 04:18 Labs: Short CBC 08/29/17 Range/Units 04:18 WBC 8.1 (4.3-11.1) K/mcL Hgb 10.1 L D (11.5-15.4) g/dL Hct 33.1 L (35.3-44.9) % Plt Count 213 (140-400) K/mcL Neutrophils # 6.2 (1.6-8.9) K/mcL BMP 08/28/17 08/29/17 14:51 04:18 Sodium 137 139 Potassium 4.6 4.7 Chloride 100 102 Carbon Dioxide 24 21 L BUN 75 H 80 H Creatinine 4.06 H 4.04 H Glucose 124 H 104 Calcium 8.0 L 7.7 L Urine 08/28/17 Range/Units 17:32 Urine Color Dark Yellow (Yellow) Urine Clarity Cloudy A (Clear) Urine pH 5.5 (5.0-8.0) pH Units Ur Specific [place] 1.021 (1.010-1.025) Urine Protein 30 H (Neg-Trace) mg/dL Urine Glucose (UA) Normal (Normal) mg/dL - Impressions Impressions Retroperitoneum Ultrasound 08/28/17 19:00 IMPRESSION: 1. Atrophic right kidney with renal cortical cysts. 2. Normal sonographic appearance of the left kidney. 3. No hydronephrosis of either kidney. D/ / Henry Argueta / Henry Argueta Interpreting Provider: Henry Argueta X-Ray 08/28/17 19:52 IMPRESSION: 1. NG tube extends below the left hemidiaphragm, into the left upper quadrant, tip overlying the expected level of the stomach. 2. Bibasilar consolidation with evidence of left pleural effusion. Pneumonia is a consideration. 3. Only lower chest and superior most portion of the abdomen are occluded the field of view. The bowel gas pattern cannot be evaluated on this exam. 4. No pneumoperitoneum. D/ / Prasanna Champion / Prasanna Champion Interpreting Provider: Prasanna Champion X-Ray 08/29/17 08:48 IMPRESSION: Nasogastric tube in good position. Persistent moderate small bowel distention compatible with mechanical small bowel obstruction. Moderate consolidation with air bronchograms left lower lobe and probable left pleural effusion most compatible with pneumonia. D/ / Anupam Hardin MD / Anupam Hardin MD Interpreting Provider: Anupam Hardin MD Consult Discharge Plan - Plan Referrals: Eduardo Hernandez Jr, MD [Primary Care Provider] -
[2017-08-29] MEDS ORDERED: Vancomycin 1,750 MG in D5% in Water 500 ML IVPB ONE (14:53)
[2017-08-29] MEDS ORDERED: Vancomycin 1 EACH in D5% in Water 250 ML IVPB SCH (15:00)
--- NOTE | 2017-08-29 16:26 | General Surgery Consult Note ---
Date of Encounter: 08/29/17 Time of Encounter: 16:20 Assessment and Plan (1) Partial small bowel obstruction Current Visit: Yes Status: Acute NPO NG tube to LIWS IV fluids Supportive care and pain control Serial abdominal exams Consider CT with oral contrast or SBFT with gastrograffin in the next 24 hours Surgery will continue to follow along to assess progress and make recommendations (2) Stool guaiac positive Current Visit: Yes Status: Acute Patient recommended to have a colonoscopy on an outpatient basis Monitor Hgb- 12.5>11.7>10.1 (3) History of gastric ulcer Current Visit: Yes Status: Acute Patient was admitted to [facility] in January 2017 for a bleeding gastric ulcer She required at least 5 units of packed red blood cell transfusion per the daughter's recollection We will place the patient on PPI therapy twice daily (4) Acute kidney injury Current Visit: Yes Status: Acute Nephrology following Strict I&Os Avoid nephrotoxic medications (5) Type 2 diabetes mellitus Current Visit: No Status: Chronic Management per primary team Qualifiers: Diabetes mellitus complication status: with unspecified complications Diabetes mellitus manager intermediate insulin use: without manager intermediate use Qualified Code( s): E11.8 - Type 2 diabetes mellitus with unspecified complications (6) COPD (chronic obstructive pulmonary disease) Current Visit: Yes Status: Chronic Stable Management per primary team Qualifiers: COPD type: unspecified COPD Qualified Code(s): J44.9 - Chronic obstructive pulmonary disease, unspecified (7) CAMILLE (obstructive sleep apnea) Current Visit: No Status: Chronic (8) HLD (hyperlipidemia) Current Visit: Yes Status: Chronic Qualifiers: Hyperlipidemia type: pure hypercholesterolemia Qualified Code(s): E78.00 - Pure hypercholesterolemia, unspecified; E78.0 - Pure hypercholesterolemia (9) HTN (hypertension) Current Visit: No Status: Chronic Management per primary team Qualifiers: Hypertension type: essential hypertension Qualified Code(s): I10 - Essential (primary) hypertension (10) Obesity (BMI 30-39.9) Current Visit: Yes Status: Chronic History of Present Illness Consult date: 08/29/17 Reason for consult: abdominal pain Requesting physician: Chelsey Ross History of present illness: Ms. Pollack is a 71 year old female with multiple comorbidities. She presents to the hospital with complaints of left sided abdominal tenderness, abdominal bloating, nausea/vomiting, poor appetite for 1 week. Her daughter is present at the bedside and answers most of the questions for the HPI. The patient's symptoms have waxed and wained over the past 1 week. Over the past couple of days the symptoms have worsened. Reports bilious vomiting. Reports 4 dark, liquid bowel movements yesterday with flatus. Denies any flatus today. Stool was hemoccult positive. Denies any fevers. Admits to chills which are chronic for the patient. Denies any increase in shortness of breath. Denies any chest pains. The patient has not had an appetite for 1 week and has had very limited PO intake. What she has attempted to eat/drink she would immediately vomit up. Denies any unexplained weight loss. Denies any chest pains. Denies any hematemesis of coffee ground emesis. CT of the abdomen and pelvis shows concerns for a SBO. We have been asked to see the patient for evaluation of small bowel obstruction as well as Hemoccult positive stool. The patient has never had a colonoscopy in the past. She denies any family history of colon cancer. Past Med Surg Social Fam HX - Past Medical History Source: old records reviewed Medical history: arthritis, atrial fibrillation, CHF, COPD, DVT, diabetes, hyperlipidemia, hypertension, pulmonary embolus, renal disease Psychiatric history: anxiety, depression - Past Surgical History Surgical History: appendectomy, - Social History Smoking Status: Former smoker Smokeless Tobacco Status: No Alcohol use: none Drug use: none - Family History Mother Family Member Ethnicity: Non- Living Status: Cause of : lung cancer Hx Family Cardiac Disorders: Yes (htn) Hx Family Respiratory Disorders: Yes Hx Family Cancer: Yes (lung) Hx Family GI Disorders: No Hx Family Endocrine Disorder: No Hx Family Neuromuscular Disorders: No Hx Family Neurologic Disorders: No Hx Family HEENT Disorders: No Hx Family Autoimmune Disorders: No Father Family Member Ethnicity: Non- Living Status: Age at : 52 Cause of : leukemia Hx Family Cancer: Yes (leukemia) Brother Family Member Ethnicity: Non- Living Status: Hx Family Cancer: Yes (Lung) Sister Family Member Ethnicity: Non- Living Status: Still Living Hx Family Cancer: Yes (Lymphoma) Medications and Allergies Albuterol Sulfate [Albuterol Inhaler] 2 puff IH Q4H PRN 08/23/16 [History] Amitriptyline [Elavil] 10 mg PO HS 08/23/16 [History] Ascorbate Calcium [Vitamin C] 500 mg PO DAILY 08/23/16 [History] Vitamin B Complex 1 cap PO DAILY 08/23/16 [History] Nystatin POWDER [Nystop] 1 appl TP BID #1 bottle 08/27/16 [Rx] Oxygen 5.5 l NS CONT 09/21/16 [History] Diltiazem CD (24hr) [Cardizem CD] 180 mg PO DAILY #30 cap.er.24h 10/14/16 [Rx] Calcium Carbonate [Calcium] 500 mg PO DAILY 12/06/16 [History] Cholecalciferol (D-3) [Vitamin D] 1,000 unit PO DAILY 12/06/16 [History] Docusate [Colace] 100 mg PO DAILY PRN 12/06/16 [History] Ipratropium/Albuterol Neb [Duoneb] 3 ml IH BID 12/06/16 [History] Multivit-Min/Iron/Folic/Lutein [Centrum Silver Women Tablet] 1 tab PO DAILY 05/15 [History] Multivits Min/Iron/FA/Herb#186 [Hair, Skin and Nails Caplet] 1 tab PO DAILY 05/15 [History] Vitamin E Acid Succinate [Vitamin E] 400 unit PO DAILY 12/06/16 [History] Acetaminophen w/Cod 300-30 mg [Tylenol w/Codeine #3] 1 tab PO TID PRN 12/31/16 [ History] Lactobacillus [Culturelle] 1 each PO BID #30 cap.sprink 01/04/17 [Rx] hydrALAZINE [HydrALAZINE] 25 mg PO QID #120 tablet 01/04/17 [Rx] Atorvastatin Calcium [Lipitor] 20 mg PO BID 06/04/17 [History] Febuxostat [Uloric] 40 mg PO DAILY 06/04/17 [History] Ferrous Gluconate 324 mg PO Q48H 06/04/17 [History] GuaiFENesin ER [Mucinex] 600 mg PO BID PRN 06/04/17 [History] Metoprolol [Lopressor] 50 mg PO BID 06/04/17 [History] [place]-3 Fatty Acids [Fish Oil] 300 mg PO DAILY 06/04/17 [History] Pantoprazole Sodium 40 mg PO BID 06/04/17 [History] metFORMIN [Glucophage] 1,000 mg PO BID 06/04/17 [History] Umeclidinium Brm/Vilanterol Tr [Anoro Ellipta 62.5-25 Mcg INH] 1 each IH DAILY # 1 blst.w.dev 06/07/17 [Rx] Bumetanide [Bumex] 2 mg PO BID 08/02/17 [History] Celecoxib [Celebrex] 100 mg PO DAILY 08/02/17 [History] Fluticasone Propionate Nasal [Flonase] 50 mcg NS DAILY 08/02/17 [History] Lisinopril [Zestril] 10 mg PO DAILY tablet 08/08/17 [Rx] predniSONE [PredniSONE] 10 mg PO DAILY 12 Days tablet 08/08/17 [Rx] Budesonide/Formoterol 160/4.5 [Symbicort 160/4.5] 1 puff IH AD 08/28/17 [History ] Furosemide [Lasix] 3 tab PO DAILY 08/28/17 [History] Tiotropium [Spiriva] 18 mcg IH 0700 08/28/17 [History] 3 Allergy/AdvReac Type Severity Reaction Status Date / Time No Known Allergies Allergy Verified 08/23/16 19:46 Review of Systems All systems PM: reviewed and no additional remarkable complaints except as stated (in the HPI) All systems PM: A 10-system review of systems was performed and is negative for pertinent findings except as documented above in the HPI. General Surgery Exam Initial Vital Signs Temp Pulse Resp BP Pulse Ox 97.4 F L 94 20 89/49 86 08/27/17 22:16 08/27/17 22:16 08/27/17 22:16 08/27/17 22:16 08/27/17 22:16 - General physical appearance well developed, well nourished, no distress, chronically ill, obese - Eyes PERRL, normal ocular movement - ENT normal mucosa, atraumatic, normocephalic - Neck trachea midline - Respiratory normal respiratory effort, clear to auscultation - Cardiovascular Cardiovascular exam: Present: RRR - Abdomen Abdomen general surgery: Present: bowel sounds present (hypoactive), soft, distended, tender, wound (NG tube to LIWS with bilious drainage noted) Abdominal Tenderness: Present: LLQ - Integumentary Integumentary general surgery: Present: warm and dry - Neurologic Present: CN 2-12 grossly intact - Musculoskeletal Present: other (generalized weakness) - Psychiatric Psychiatric general surgery: Present: A&Ox3 Exam Initial Vital Signs Temp Pulse Resp BP Pulse Ox 97.4 F L 94 20 89/49 86 08/27/17 22:16 08/27/17 22:16 08/27/17 22:16 08/27/17 22:16 08/27/17 22:16 Results - Labs 08/29/17 04:18 08/29/17 04:18 Abnormal lab results Hgb 10.1 g/dL (11.5-15.4) L D 08/29/17 04:18 Hct 33.1 % (35.3-44.9) L 08/29/17 04:18 MCH 25.9 pg (28.0-33.3) L 08/29/17 04:18 MCHC 30.5 g/dL (31.6-35.5) L 08/29/17 04:18 RDW 19.7 % (11.5-14.5) H 08/29/17 04:18 Nucleated RBCs/100 WBC 0.4 /100 WBC (0) H 08/29/17 04:18 Anisocytosis 1+ (Not Present) A 08/29/17 04:18 Ignacio Cells 2+ (Not Present) A 08/28/17 04:48 Carbon Dioxide 21 mEq/L (23-29) L 08/29/17 04:18 BUN 80 mg/dL (8-23) H 08/29/17 04:18 Creatinine 4.04 mg/dL (0.60-1.20) H 08/29/17 04:18 Est GFR ( Amer) 13 (> 60) L 08/29/17 04:18 Est GFR (Non-Af Amer) 11 (> 60) L 08/29/17 04:18 POC Glucose 128 (58-89) H 08/29/17 03:37 Calculated Osmolality 312 (280-300) H 08/29/17 04:18 Uric Acid 9.6 mg/dL (2.3-7.6) H 08/28/17 17:32 Calcium 7.7 mg/dL (8.6-10.3) L 08/29/17 04:18 AST 11 Units/L (13-39) L 08/27/17 22:32 Creatine Kinase < 10 Units/L (30-223) L 08/28/17 17:32 Globulin 3.7 g/dL (2.4-3.5) H 08/27/17 22:32 Urine Clarity Cloudy (Clear) A 08/28/17 17:32 Urine Protein 30 mg/dL (Neg-Trace) H 08/28/17 17:32 Urine Ketones Trace mg/dL (Negative) H 08/28/17 17:32 Urine Bilirubin Moderate (Negative) H 08/28/17 17:32 Ur Leukocyte Esterase Large (Negative) H 08/28/17 17:32 Urine Microscopic WBC 50-100 per hpf (0-3) H 08/28/17 17:32 Ur Squamous Epith Cells Many per lpf (None-Few) H 08/28/17 17:32 Urine Bacteria Many per hpf (None-Few) H 08/28/17 17:32 Protein/Creatinin Ratio 0.22 mg/mg (0.00-0.20) H 08/28/17 17:32 Stool Occult Blood Positive (Negative) A 08/28/17 15:15 Diabetes panel 08/29/17 Range/Units 04:18 Sodium 139 (136-145) mEq/L Potassium 4.7 (3.5-5.1) mEq/L Chloride 102 (98-107) mEq/L Carbon Dioxide 21 L (23-29) mEq/L BUN 80 H (8-23) mg/dL Creatinine 4.04 H (0.60-1.20) mg/dL Glucose 104 (70-105) mg/dL Calcium 7.7 L (8.6-10.3) mg/dL Calcium panel 08/29/17 Range/Units 04:18 Calcium 7.7 L (8.6-10.3) mg/dL Pituitary panel 08/29/17 Range/Units 04:18 Sodium 139 (136-145) mEq/L Potassium 4.7 (3.5-5.1) mEq/L Chloride 102 (98-107) mEq/L Carbon Dioxide 21 L (23-29) mEq/L BUN 80 H (8-23) mg/dL Creatinine 4.04 H (0.60-1.20) mg/dL Glucose 104 (70-105) mg/dL Calcium 7.7 L (8.6-10.3) mg/dL Adrenal panel 08/29/17 Range/Units 04:18 Sodium 139 (136-145) mEq/L Potassium 4.7 (3.5-5.1) mEq/L Chloride 102 (98-107) mEq/L Carbon Dioxide 21 L (23-29) mEq/L BUN 80 H (8-23) mg/dL Creatinine 4.04 H (0.60-1.20) mg/dL Glucose 104 (70-105) mg/dL Calcium 7.7 L (8.6-10.3) mg/dL All other labs normal. - Imaging Abdominal x-ray: report reviewed CT scan - abdomen: report reviewed CT scan - pelvis: report reviewed Additional studies: Chest X-Ray 08/27/17 22:51 IMPRESSION: Overall improved aeration of the lungs with persistent multifocal consolidation, atelectasis and/or scarring. Continued follow-up is recommended. D/ / Radha Mohan Cha, MD / Radha Mohan Cha, MD Interpreting Provider: Radha Mohan Cha, MD Abdomen/Pelvis CT 08/28/17 00:36 IMPRESSION: The stomach and proximal small bowel loops are dilated and fluid-filled with air-fluid levels. This gradually transitions to normal caliber distal small bowel without obvious focal transition point identified on limited noncontrast exam. Findings may be related to mechanical or functional partial small bowel obstruction. If indicated, follow-up imaging with oral contrast may be helpful. Small amount a gas is seen within the bladder. In the absence of recent instrumentation this may be related to cystitis. Cholelithiasis. D/ / Jo Hatfield MD / Jo Hatfield MD Interpreting Provider: Jo Hatfield MD Retroperitoneum Ultrasound 08/28/17 19:00 IMPRESSION: 1. Atrophic right kidney with renal cortical cysts. 2. Normal sonographic appearance of the left kidney. 3. No hydronephrosis of either kidney. D/ / Henry Argueta / Henry Argueta Interpreting Provider: Henry Argueta X-Ray 08/29/17 08:48 IMPRESSION: Nasogastric tube in good position. Persistent moderate small bowel distention compatible with mechanical small bowel obstruction. Moderate consolidation with air bronchograms left lower lobe and probable left pleural effusion most compatible with pneumonia. D/ / Anupam Hardin MD / Anupam Hardin MD Interpreting Provider: Anupam Hardin MD Consult Discharge Plan - Plan Referrals: Eduardo Hernandez Jr, MD [Primary Care Provider] - - Attending Attestation For this encounter, I have reviewed the HANDYPERSON or PA documentation, treatment plan, and medical decision making; and I have had face to face time with this patient.
[2017-08-29] MEDS: Pantoprazole 40 MG VIAL IVP SCH (17:46)
--- NOTE | 2017-08-29 17:49 | Nephrology Progress Note ---
Date of Encounter: 08/29/17 Time of Encounter: 12:05 - Assessment and Plan (1) Acute kidney injury Current Visit: Yes Status: Acute SCr at plateau at 4.04. GFR 11, suspect etiology of MARISSA likely pre-renal Continue IVF with NS at 125cc/hr and recheck BMP this evening CPK WNL, uric acid elevated likely due to per renal cause Urine studies inconclusive US of kidney shows atrophic right kidney, a chronic finding Continue to avoid nephrotoxin if possible No acute indication for REGIONAL ACCOUNT MANAGER at this time (2) Partial small bowel obstruction Current Visit: Yes Status: Acute Continue NGT for decompression Per surgery recs as well (3) CKD (chronic kidney disease) stage 3, GFR 30-59 ml/min Current Visit: Yes Status: Acute Baseline around GFR 40-50s Subjective Interval history: Pts een and examined with daughters at bedside. No new complaints. Feels less abdominal discomfort with NGT in place Objective - Vital Signs Vital signs: Vital Signs Temp Pulse Resp BP Pulse Ox 08/29/17 16:01 98.4 F 95 17 186/79 89 08/29/17 10:59 97.9 F 83 18 147/66 96 08/29/17 07:32 97.9 F 96 18 166/66 89 08/29/17 03:14 98.2 F 101 14 145/68 88 08/28/17 22:39 97.8 F 100 16 123/71 90 08/28/17 19:18 98.1 F 112 16 115/47 86 Intake and Output 08/29/17 08/29/17 08/29/17 07:59 15:59 23:59 Intake Total 1000 / 1000 1000 / 1000 Output Total 950 / 950 200 / 200 Balance 50 / 50 800 / 800 Intake: IV Fluids 1000 / 1000 1000 / 1000 0.9 % Sodium Chloride 1,000 ML 1000 / 1000 1000 / 1000 @ 125 mls/hr IVC .Q8H SABRINA Rx#: [id number] Output: Urine 100 / 100 Gastric Tube Lavage Amount 500 / 500 Left Nare 500 / 500 Gastric Drainage 450 / 450 100 / 100 Left Nare 450 / 450 Other: Weight 110.949 kg Blood Glucose* 90 77 97 Patient Weight 08/29/17 23:59 Weight 110.949 kg - General Appearance Exam: NAD EENT: Present: ATNC, mucous membranes dry Neck: Present: no JVD, supple Respiratory: Present: clear Cardiology: Present: no edema, normal S1, normal S2 Gastrointestinal: Present: no tenderness, no guarding, obese Integumentary: Present: warm and dry Neurologic: Present: no focal deficit Musculoskeletal: Present: no deformities Psychiatric: Present: mood/affect appropriate, cooperative - Lab 08/29/17 04:18 08/29/17 04:18 Most recent lab results Calcium 7.7 mg/dL (8.6-10.3) L 08/29/17 04:18 Urine Creatinine 164 mg/dL 08/28/17 17:32 Urine Sodium 35.7 mEq/L 08/28/17 17:32 Urine Total Protein 36 mg/dL 08/28/17 17:32 Consult Discharge Plan - Plan Referrals: Eduardo Hernandez Jr, MD [Primary Care Provider] -
[2017-08-29 21:38] LABS: Calcium 8.1 mg/dL (8.6-10.3); Potassium 4.1 mEq/L (3.5-5.1)
[2017-08-30 05:25] LABS: Hematocrit 31.4 % (35.3-44.9); Hemoglobin 9.6 g/dL (11.5-15.4); Mean Corpuscular HGB Conc 30.6 g/dL (31.6-35.5); Mean Corpuscular Hemoglobin 25.7 pg (28.0-33.3); Mean Corpuscular Volume 84.2 fL (83.0-100.0); Mean Platelet Volume 10.6 fL (9.4-12.4); Platelet Count 190 K/mcL (140-400); Red Blood Count 3.73 M/mcL (3.82-4.97); Red Cell Distribution Width 19.4 % (11.5-14.5)
[2017-08-30 05:58] LABS: Calcium 8.2 mg/dL (8.6-10.3); Potassium 4.3 mEq/L (3.5-5.1)
[2017-08-30] MEDS: Insulin LISPRO 300 UNITS/3 ML VIAL SQ SCH ×3 (06:06→18:41)
[2017-08-30] MEDS: *HR* Heparin 5,000 UNIT/ML VIAL SQ SCH ×2 (06:26→18:57)
[2017-08-30] MEDS: Pantoprazole 40 MG VIAL IVP SCH ×2 (06:27→18:56)
[2017-08-30] MEDS: 0.9 % Sodium Chloride 1,000 ML IVC SCH (07:50)
[2017-08-30] MEDS: Hydrocortisone Sodium Succ 100 MG/2 ML VIAL IVP SCH ×2 (07:51→16:28)
[2017-08-30] MEDS: Nystatin POWDER 30 GM BOTTLE TP SCH ×2 (07:55→22:43)
[2017-08-30] MEDS ORDERED: Aminoglycoside Consult 1 EACH MC ONE (08:29)
[2017-08-30] MEDS: Acetaminophen IV 500 MG/50 ML INFUS..BTL IV PRN ×2 (11:58→21:51)
--- NOTE | 2017-08-30 15:58 | Internal Med Progress Note ---
Date of Encounter: 08/30/17 Time of Encounter: 09:45 - Assessment and plan (1) Partial small bowel obstruction Current Visit: Yes Status: Acute Assessment and plan: NG tube in place for abdominal decompression, LIWS. Suctioning approximately 1- 2L dark liquid from stomach. KUB remains largely unchanged from prior. Abd is softer and non-tender today with hyperactive bowel sounds heard in all quadrants. Surgery is on board and following along, I appreciate their recommendations and consultation. CT abd/pelvis with oral contrast today revealed slight interval improvement of small bowel dilation and a discrete transition point is not identified. Cholelithiasis is also identified as well as age indeterminate L2 and L5 compression deformities and no significant interval change of bibasilar airspace opacities. Continue IV fluid hydration Continue antiemetics as needed Ice chips NG tube to low intermittent wall suction. Surgery following. (2) Obesity (BMI 30-39.9) Current Visit: Yes Status: Chronic Assessment and plan: Chronic. Lifestyle changes. (3) Acute on chronic renal failure Current Visit: Yes Status: Chronic Assessment and plan: Patient presents with creatinine 3.38, considerably higher than her baseline of 1.2 or so. GFR 13 on admission, significantly decreased over her normal of 50s. Patient was treated with gentle IV fluid hydration GFR 11, serum creatinine 4.15. Most likely due to poor po intake and vomiting secondary to SBO and additional losses through NG tube.. Electrolytes WNL. Nephrology consulted, I appreciate their consultation and recommendations. Continue to avoid nephrotoxins Continue IV fluid hydration Qualifiers: Acute renal failure type: unspecified Chronic kidney disease stage: stage 3 (moderate) Qualified Code(s): N17.9 - Acute kidney failure, unspecified; N18.3 - Chronic kidney disease, stage 3 (moderate); N18.3 - Chronic kidney disease, stage 3 (moderate) (4) Chronic steroid use Current Visit: Yes Status: Chronic Assessment and plan: Due to COPD. Continue after diet tolerated. (5) Nausea and vomiting Current Visit: Yes Status: Resolved Assessment and plan: Recent history, due to SBO. Resovled. Pt denies n/v. Continue IVF hydration and antiemetics Monitor labs. Qualifiers: Vomiting type: unspecified Vomiting Intractability: unspecified Qualified Code(s): R11.2 - Nausea with vomiting, unspecified (6) COPD (chronic obstructive pulmonary disease) Current Visit: Yes Status: Chronic Assessment and plan: No acute exacerbation. Lungs clear and diminished throughout. No wheezing or respiratory distress. continue 02 to maintain sats > 92% Continue home medications and nebulizers PRN. Per daughter, pt normally wears 5L 02/NC at home, titrated with pulmonology. Patient with Rales noted in posterior bases this morning, concerning for acute exacerbation of CHF. Chest x-ray and echocardiogram have been ordered. Qualifiers: COPD type: unspecified COPD Qualified Code(s): J44.9 - Chronic obstructive pulmonary disease, unspecified (7) UTI (urinary tract infection) Current Visit: Yes Status: Suspected Assessment and plan: Urine cloudy, with large amount leukocyte esterase, 50-100 microscopic white cells, many bacteria, many squamous epithelial cells which did not trigger a culture. She denies any urinary symptoms, low abdomen is nontender to palpation. Patient has no white count or fever., CT abdomen pelvis shows small amount of gas in the bladder, in the absence of recent instrumentation, this may be related to cystitis. Patient has no leukocytosis or fever. There is no tachycardia or hypotension. No treatment recommended at this time. Qualifiers: Urinary tract infection type: acute cystitis Hematuria presence: without hematuria Qualified Code(s): N30.00 - Acute cystitis without hematuria (8) DVT prophylaxis Current Visit: Yes Status: Acute Assessment and plan: Heparin subcutaneous twice daily. Up to chair. (9) Hospital acquired PNA Current Visit: Yes Status: Acute Assessment and plan: Patient reports intermittent nonproductive cough. KUB were moderate consolidation left lower lobe with probable left pleural effusion most compatible with pneumonia. Patient received 1 dose of IV vancomycin and Zosyn. IV vancomycin was DC'd due to renal function. Pt has been started on Zyvox 600mg IV BID. Pt is on 02 5liters/NC. PT wears this at home. Continue to monitor labs and vitals. Consider pulmonology consultation if pt continues to require additional supplemental 02. Continue 02 and titrate as needed to maintain 02 sats > 92% Continue nebs Continue IV antibiotics KUB X-Ray 08/29/17 08:48 IMPRESSION: Nasogastric tube in good position. Persistent moderate small bowel distention compatible with mechanical small bowel obstruction. Moderate consolidation with air bronchograms left lower lobe and probable left pleural effusion most compatible with pneumonia. D/ / Anupam Hardin MD / Anupam Hardin MD Interpreting Provider: Anupam Hardin MD - Time Spent With Patient less than 15 minutes - Subjective Interval history: Pt was seen at bedside at 1050 a.m. family x 2 at bedside. Patient reports that she is feeling better today and that her abdomen is less tender. NG tube remains for gastric decompression, approximately 2 liters dk contents removed from canister. Patient denies any headache or dizziness, no chest pain or shortness of breath. She reports new cough this a.m., no peripheral edema. - Constitutional Vitals: Temp Pulse Resp BP Pulse Ox 97.6 F 83 16 123/73 92 08/30/17 11:41 08/30/17 11:41 08/30/17 11:41 08/30/17 11:41 08/30/17 11:41 General appearance: Present: cooperative, A&O X 3, pleasant, no acute distress, obese, answers questions appropriately - Head Head exam: Present: atraumatic, normal inspection, normocephalic - Eye Eye exam: Present: normal appearance, conjuntiva pink, sclera anicteric - Neck Neck exam general surgery: Present: supple, trachea midline. Absent: lymphadenopathy, tenderness - Respiratory Respiratory exam: Present: CTAB. Absent: accessory muscle use, chest wall tenderness, rales, rhonchi, wheezes - Cardiovascular Cardiovascular exam: Present: RRR, +S1, +S2. Absent: diastolic murmur, gallop, rubs, systolic murmur - GI/Abdominal GI/Abdominal exam: Present: normal bowel sounds, soft, no peritoneal signs. Absent: distended, hepatomegaly, tenderness - Extremities Exam Extremities exam: Present: normal capillary refill, normal inspection, warm, radial pulses palpable and symmetrical. Absent: calf tenderness, cyanotic, pedal edema - Neurological Exam Neurological exam: Present: alert, oriented X3, no focal deficits. Absent: facial droop, speech deficit - Skin Skin exam: Present: dry, intact, normal color, warm. Absent: rash Internal Medicine: Result - Labs CBC & Chem 7: 08/30/17 04:59 08/30/17 04:59 Labs: Short CBC 08/30/17 Range/Units 04:59 WBC 7.5 (4.3-11.1) K/mcL Hgb 9.6 L (11.5-15.4) g/dL Hct 31.4 L (35.3-44.9) % Plt Count 190 (140-400) K/mcL BMP 08/29/17 08/30/17 20:35 04:59 Sodium 140 142 Potassium 4.1 4.3 Chloride 103 105 Carbon Dioxide 22 L 21 L BUN 82 H 87 H Creatinine 3.99 H 4.15 H Glucose 141 H 101 Calcium 8.1 L 8.2 L - Impressions Impressions Abdomen/Pelvis CT 08/30/17 13:30 IMPRESSION: 1. Slight interval improvement of small bowel dilation. A discrete transition point is not identified on today's exam. There is tapering of the small bowel to normal caliber. 2. Cholelithiasis. 3. Age-indeterminate L2 and L5 compression deformities. 4. No significant interval change of bibasilar airspace opacities. D/ / 08/30/2017 14:46:21 Radha Sanchez MD / [email or web address] Interpreting Provider: Radha Sanchez MD Consult Discharge Plan - Plan Referrals: Eduardo Hernandez Jr, MD [Primary Care Provider] - 09/07/17 11:00 am
--- NOTE | 2017-08-30 16:01 | Nephrology Progress Note ---
Date of Encounter: 08/30/17 Time of Encounter: 12:00 - Assessment and Plan (1) Acute kidney injury Status: Acute SCr improved last pm at 3.99, GFR 11 but worsen but today at 4.15. GFR 11, suspect etiology of MARISSA still pre-renal Continue IVF with NS at 125cc/hr US of kidney shows atrophic right kidney, a chronic finding Continue to avoid nephrotoxin if possible, will recommend stopping vanco and using linezolid instead No acute indication for TELEPHONE MESSENGER at this time but discussed the possibility if further worsening in fxn (2) Partial small bowel obstruction Status: Resolved Continue NGT for decompression Per surgery recs as well Agree with repeat CT abd/pelvis planned today (3) CKD (chronic kidney disease) stage 3, GFR 30-59 ml/min Status: Acute Baseline around GFR 40-50s Subjective Interval history: Pts een and examined with daughter at bedside. No new complaints. Feels "fine". No SOB. Noted increased NG drainage since yesterday, over 1000cc yesterday and close to 150cc noted today. UOP dropped as a result Objective - Vital Signs Vital signs: Vital Signs Temp Pulse Resp BP Pulse Ox 08/30/17 11:41 97.6 F 83 16 123/73 92 08/30/17 07:03 98.1 F 82 16 119/64 91 08/30/17 04:28 78 93 08/30/17 04:03 98 F 86 16 143/65 86 08/29/17 23:16 97.8 F 82 14 124/65 88 08/29/17 19:45 98.7 F 90 18 133/57 89 08/29/17 16:01 98.4 F 95 17 186/79 89 Intake and Output 08/29/17 08/30/17 08/30/17 23:59 07:59 15:59 Intake Total 50 / 50 1100 / 1100 50 / 50 Output Total 1050 / 1050 1050 / 1050 1300 / 1300 Balance -1000 / -1000 50 / 50 -1250 / -1250 Intake: IV Fluids 50 / 50 1100 / 1100 50 / 50 Ofirmev 1,000 mg/100 ml 500 mg 50 / 50 50 / 50 In 50 ml @ 200 mls/hr IV Q6HR PRN Rx#:[id number] 0.9 % Sodium Chloride 1,000 ML 1000 / 1000 @ 125 mls/hr IVC .Q8H [facility] Rx#: [id number] Zosyn 3.375 GM In 0.9 % Sodium 100 / 100 Chloride 100 ML @ 25 mls/hr IVPB Q12H [facility] Rx#:[id number] Output: Urine 250 / 250 200 / 200 Gastric Drainage 800 / 800 850 / 850 1300 / 1300 Right Nare 1300 / 1300 Other: # Voids 1 Weight 106.957 kg Blood Glucose* 86 93 87 Patient Weight 08/30/17 23:59 Weight 106.957 kg - General Appearance General appearance: Present: chronically ill EENT: Present: ATNC, mucous membranes dry Neck: Present: no JVD, supple Respiratory: Present: clear Cardiology: Present: no edema, normal S1, normal S2 Gastrointestinal: Present: no tenderness, no guarding, obese Integumentary: Present: warm and dry Neurologic: Present: no focal deficit Musculoskeletal: Present: no deformities Psychiatric: Present: mood/affect appropriate, cooperative - Lab 09/10/17 04:27 09/10/17 04:27 Most recent lab results Calcium 8.2 mg/dL (8.6-10.3) L 08/30/17 04:59 Urine Creatinine 164 mg/dL 08/28/17 17:32 Urine Sodium 35.7 mEq/L 08/28/17 17:32 Urine Total Protein 36 mg/dL 08/28/17 17:32 Consult Discharge Plan - Plan Instructions: Loperamide (By mouth), Chronic Diarrhea, Mud Grinder (GEN), Acute Diarrhea, Mud Grinder (GEN) Additional Instructions: Follow-up appointments: If there is not an appointment listed below, please call your physician and schedule a follow-up appointment. If you have congestive heart failure and your symptoms return, make an appointment with your physician. Medication List: Carry an up to date list of medications you are taking at all time. We have given you an updated medication list including any new medications that you have been prescribed. Please provide that list to your primary provider Symptoms: If your condition changes or you experience any of the following symptoms, notify your physician immediately: Unusual or worsening pain, fever, persistent nausea and vomiting, bleeding, increase in swelling (especially in your legs), sudden weight gain, extreme dizziness, chest pain, increased drainage or redness from a wound or incision. Go to the emergency department if you experience a problem with breathing. Weights: If you have a history of swelling or shortness of breath, weigh yourself daily and notify your physician if you have a weight gain of two or more pounds in one day or 5 or more pounds in a week. If you experience any of the warning signs for stroke: Sudden numbness or weakness of the face, arm or leg; especially on one side of the body, sudden confusion, trouble speaking or understanding, sudden trouble seeing in one or both eyes, sudden trouble walking, dizziness, loss of balance or coordination, sudden sever headache with no cause; Call 911 or go to the emergency room. Stroke is a medical emergency. Some risk factors for stroke: Age, cigarette smoking, diabetes, excessive alcohol consumption, family history , high blood pressure, overweight, physical inactivity, prior stroke, heart attack, diagnosis of carotid artery stenosis or other artery disease. If you smoke, STOP: Smoking or tobacco use significantly increases your risk of heart and lung disease. Your chance of disease greatly increases if you continue to smoke. For more information, call the [place] [employer] quit line for smoking cessation 4-NOW ( ) Referrals: Eliseo Osman MD [Partnered Physician] - 09/25/17 9:40 am (Please call for follow-up appt within 2 weeks ) Magnus Donaldson DO [Partnered Physician] - 09/11/17 10:50 am (hospital follow-up ; discuss colonoscopy (patient has never had one), guiac positive stool) Eduardo Hernandez Jr, MD [Primary Care Provider] - 09/07/17 11:00 am Socrates Howard DO [Partnered Physician] - (Appointment has been webrequested. our offices will call you with an appointment. If you do not hear from us within a couple days please call the number provided for the Nephrology office. ) Prescriptions: Loperamide [Imodium] 2 mg PO Q4HR PRN #30 capsule PRN Reason: Diarrhea metroNIDAZOLE [Flagyl] 250 mg PO TID #15 tablet
--- NOTE | 2017-08-30 16:56 | General Surgery Progress Note ---
Date of Encounter: 08/30/17 Time of Encounter: 14:30 - Assessment and Plan (1) Partial small bowel obstruction Current Visit: Yes Status: Acute Clear liquid diet with diabetic modifications Clamp NG tube- may place back to LIWS if develops nausea/vomiting KUB in the am IV fluids per hospitalist Supportive care and pain control Serial abdominal exams Consider CT with contrast is suggestive of an improving ileus- no transition point and mildly dilated loops of small bowel Surgery will continue to follow along to assess progress and make recommendations (2) Stool guaiac positive Current Visit: Yes Status: Acute Patient recommended to have a colonoscopy on an outpatient basis Monitor Hgb- 12.5>11.7>10.1>9.6 (3) History of gastric ulcer Current Visit: Yes Status: Acute Patient was admitted to [facility] in January 2017 for a bleeding gastric ulcer She required at least 5 units of packed red blood cell transfusion per the daughter's recollection We will place the patient on PPI therapy twice daily (4) Acute kidney injury Current Visit: Yes Status: Acute Nephrology following Strict I&Os Avoid nephrotoxic medications (5) Type 2 diabetes mellitus Current Visit: No Status: Chronic Management per primary team Qualifiers: Diabetes mellitus complication status: with unspecified complications Diabetes mellitus mcc insulin use: without mcc use Qualified Code( s): E11.8 - Type 2 diabetes mellitus with unspecified complications (6) COPD (chronic obstructive pulmonary disease) Current Visit: Yes Status: Chronic Stable Management per primary team Qualifiers: COPD type: unspecified COPD Qualified Code(s): J44.9 - Chronic obstructive pulmonary disease, unspecified (7) CAMILLE (obstructive sleep apnea) Current Visit: No Status: Chronic (8) HLD (hyperlipidemia) Current Visit: Yes Status: Chronic Qualifiers: Hyperlipidemia type: pure hypercholesterolemia Qualified Code(s): E78.00 - Pure hypercholesterolemia, unspecified; E78.0 - Pure hypercholesterolemia (9) HTN (hypertension) Current Visit: No Status: Chronic Management per primary team Qualifiers: Hypertension type: essential hypertension Qualified Code(s): I10 - Essential (primary) hypertension (10) Obesity (BMI 30-39.9) Current Visit: Yes Status: Chronic Subjective Patient reports: no new complaints, feels better, flatus, afebrile Objective Vital Signs - Last 8 Hours Temp Pulse Resp BP Pulse Ox 08/30/17 16:05 97.9 F 79 14 126/71 94 08/30/17 11:41 97.6 F 83 16 123/73 92 Intake and Output 08/30/17 08/30/17 08/30/17 07:59 15:59 23:59 Intake Total 1100 / 1100 50 / 50 Output Total 1050 / 1050 1300 / 1300 700 / 700 Balance 50 / 50 -1250 / -1250 -700 / -700 Intake: IV Fluids 1100 / 1100 50 / 50 Ofirmev 1,000 mg/100 ml 500 mg 50 / 50 In 50 ml @ 200 mls/hr IV Q6HR PRN Rx#:[id number] 0.9 % Sodium Chloride 1,000 ML 1000 / 1000 @ 125 mls/hr IVC .Q8H [facility] Rx#: [id number] Zosyn 3.375 GM In 0.9 % Sodium 100 / 100 Chloride 100 ML @ 25 mls/hr IVPB Q12H [facility] Rx#:[id number] Output: Urine 200 / 200 700 / 700 Gastric Drainage 850 / 850 1300 / 1300 Right Nare 1300 / 1300 Other: Weight 106.957 kg Blood Glucose* 93 87 66 Patient Weight 08/30/17 23:59 Weight 106.957 kg - General physical appearance well developed, well nourished, no distress, no pain, chronically ill, obese - Eyes normal ocular movement - ENT normal mucosa, atraumatic, normocephalic - Neck Neck exam: trachea midline - Respiratory normal respiratory effort, clear to auscultation - Cardiovascular Cardiovascular exam: Present: RRR - Abdomen Abdomen: Present: bowel sounds present, soft, non tender, wound (NG tube with bilious drainage) - Neurologic CN 2-12 grossly intact - Musculoskeletal other (deconditioning noted) - Psychiatric oriented to time, oriented to person, oriented to place, speech is normal, memory intact - Labs 08/30/17 04:59 08/30/17 04:59 Diabetes panel 08/29/17 08/30/17 Range/Units 20:35 04:59 Sodium 140 142 (136-145) mEq/L Potassium 4.1 4.3 (3.5-5.1) mEq/L Chloride 103 105 (98-107) mEq/L Carbon Dioxide 22 L 21 L (23-29) mEq/L BUN 82 H 87 H (8-23) mg/dL Creatinine 3.99 H 4.15 H (0.60-1.20) mg/dL Glucose 141 H 101 (70-105) mg/dL Calcium 8.1 L 8.2 L (8.6-10.3) mg/dL Calcium panel 08/29/17 08/30/17 Range/Units 20:35 04:59 Calcium 8.1 L 8.2 L (8.6-10.3) mg/dL Pituitary panel 08/29/17 08/30/17 Range/Units 20:35 04:59 Sodium 140 142 (136-145) mEq/L Potassium 4.1 4.3 (3.5-5.1) mEq/L Chloride 103 105 (98-107) mEq/L Carbon Dioxide 22 L 21 L (23-29) mEq/L BUN 82 H 87 H (8-23) mg/dL Creatinine 3.99 H 4.15 H (0.60-1.20) mg/dL Glucose 141 H 101 (70-105) mg/dL Calcium 8.1 L 8.2 L (8.6-10.3) mg/dL Adrenal panel 08/29/17 08/30/17 Range/Units 20:35 04:59 Sodium 140 142 (136-145) mEq/L Potassium 4.1 4.3 (3.5-5.1) mEq/L Chloride 103 105 (98-107) mEq/L Carbon Dioxide 22 L 21 L (23-29) mEq/L BUN 82 H 87 H (8-23) mg/dL Creatinine 3.99 H 4.15 H (0.60-1.20) mg/dL Glucose 141 H 101 (70-105) mg/dL Calcium 8.1 L 8.2 L (8.6-10.3) mg/dL Consult Discharge Plan - Plan Referrals: Eduardo Hernandez Jr, MD [Primary Care Provider] - 09/07/17 11:00 am
[2017-08-31] MEDS: Insulin LISPRO 300 UNITS/3 ML VIAL SQ SCH ×5 (03:23→23:38)
[2017-08-31] MEDS: Hydrocortisone Sodium Succ 100 MG/2 ML VIAL IVP SCH ×4 (03:23→23:15)
[2017-08-31 05:09] LABS: Basophils % 0.1 %; Eosinophils % 0.4 %; Hematocrit 31.9 % (35.3-44.9); Hemoglobin 9.9 g/dL (11.5-15.4); Immature Granulocytes % 7.4 % (0-4); Lymphocytes % 12.5 %; Mean Corpuscular Hemoglobin 25.7 pg (28.0-33.3); Mean Corpuscular Volume 82.9 fL (83.0-100.0); Monocytes # 0.7 K/mcL (0.0-1.3); Monocytes % 8.5 %; Neutrophils # 5.5 K/mcL (1.6-8.9); Platelet Count 195 K/mcL (140-400); Red Blood Count 3.85 M/mcL (3.82-4.97); Red Cell Distribution Width 19.4 % (11.5-14.5); Segmented Neutrophils % 71.1 %
[2017-08-31 05:10] LABS: Hemoglobin A1C 6.3 %
[2017-08-31 05:37] LABS: Potassium 3.6 mEq/L (3.5-5.1)
[2017-08-31] MEDS: *HR* Heparin 5,000 UNIT/ML VIAL SQ SCH ×2 (06:54→17:47)
[2017-08-31] MEDS: Pantoprazole 40 MG VIAL IVP SCH ×2 (06:56→17:47)
[2017-08-31] MEDS: Nystatin POWDER 30 GM BOTTLE TP SCH ×2 (08:18→21:15)
--- NOTE | 2017-08-31 09:30 | General Surgery Progress Note ---
Date of Encounter: 08/31/17 Time of Encounter: 09:00 - Assessment and Plan (1) Partial small bowel obstruction Current Visit: Yes Status: Acute Advance to full liquid diet with diabetic modifications May advance to soft diet as tolerated Remove NG tube- patient tolerated liquids without nausea/vomiting/bloating KUB pending for this am IV fluids per hospitalist Supportive care and pain control Serial abdominal exams Surgery will sign off at this time. Thank you for allowing us to participate in the care of this patient. Please call with any further questions/concerns. Outpatient follow-up for colonoscopy with Dr. Donaldson (2) Stool guaiac positive Current Visit: Yes Status: Acute Patient recommended to have a colonoscopy on an outpatient basis- will schedule follow-up Monitor Hgb- 12.5>11.7>10.1>9.6>9.9 (3) History of gastric ulcer Current Visit: Yes Status: Acute Patient was admitted to [facility] in January 2017 for a bleeding gastric ulcer She required at least 5 units of packed red blood cell transfusion per the daughter's recollection We will place the patient on PPI therapy twice daily (4) Acute kidney injury Current Visit: Yes Status: Acute Labs improved today Nephrology following Strict I&Os Avoid nephrotoxic medications (5) Type 2 diabetes mellitus Current Visit: No Status: Chronic Management per primary team Qualifiers: Diabetes mellitus complication status: with unspecified complications Diabetes mellitus facility examiner insulin use: without residential use Qualified Code( s): E11.8 - Type 2 diabetes mellitus with unspecified complications (6) COPD (chronic obstructive pulmonary disease) Current Visit: Yes Status: Chronic Stable Management per primary team Qualifiers: COPD type: unspecified COPD Qualified Code(s): J44.9 - Chronic obstructive pulmonary disease, unspecified (7) CAMILLE (obstructive sleep apnea) Current Visit: No Status: Chronic (8) HLD (hyperlipidemia) Current Visit: Yes Status: Chronic Qualifiers: Hyperlipidemia type: pure hypercholesterolemia Qualified Code(s): E78.00 - Pure hypercholesterolemia, unspecified; E78.0 - Pure hypercholesterolemia (9) HTN (hypertension) Current Visit: No Status: Chronic Management per primary team Qualifiers: Hypertension type: essential hypertension Qualified Code(s): I10 - Essential (primary) hypertension (10) Obesity (BMI 30-39.9) Current Visit: Yes Status: Chronic Subjective Patient reports: no new complaints, feels better, tolerating liquids well, flatus, afebrile Objective Vital Signs - Last 8 Hours Temp Pulse Resp BP Pulse Ox 08/31/17 03:18 97.5 F L 78 20 128/68 88 Intake and Output 08/30/17 08/31/17 08/31/17 23:59 07:59 15:59 Intake Total 780 / 780 Output Total 700 / 700 700 / 700 Balance 80 / 80 -700 / -700 Intake: IV Fluids 300 / 300 Zyvox Premix 600mg/300mL 600 mg 300 / 300 In 300 ml @ 150 mls/hr IVPB Q12HR [facility] Rx#:[id number] Oral 480 / 480 Output: Urine 700 / 700 700 / 700 Other: Meal Dinner Percent of Meal Consumed 90% # Voids 1 Blood Glucose* 66 93 - General physical appearance well developed, no distress, chronically ill - Eyes normal ocular movement - ENT normal mucosa, atraumatic, normocephalic - Neck Neck exam: trachea midline - Respiratory normal respiratory effort, clear to auscultation - Cardiovascular Cardiovascular exam: Present: RRR - Abdomen Abdomen: Present: bowel sounds present, soft, non tender, wound (NG tube clamped ) - Neurologic CN 2-12 grossly intact - Musculoskeletal other (deconditioning noted) - Psychiatric oriented to time, oriented to person, oriented to place, speech is normal, memory intact - Labs 08/31/17 04:36 08/31/17 04:36 Diabetes panel 08/31/17 08/31/17 Range/Units 04:36 04:36 Sodium 142 (136-145) mEq/L Potassium 3.6 (3.5-5.1) mEq/L Chloride 107 (98-107) mEq/L Carbon Dioxide 22 L (23-29) mEq/L BUN 84 H (8-23) mg/dL Creatinine 3.32 H (0.60-1.20) mg/dL Glucose 83 (70-105) mg/dL Hemoglobin A1c 6.3 H ( - 5.6) % Calcium 8.0 L (8.6-10.3) mg/dL Calcium panel 08/31/17 Range/Units 04:36 Calcium 8.0 L (8.6-10.3) mg/dL Pituitary panel 08/31/17 Range/Units 04:36 Sodium 142 (136-145) mEq/L Potassium 3.6 (3.5-5.1) mEq/L Chloride 107 (98-107) mEq/L Carbon Dioxide 22 L (23-29) mEq/L BUN 84 H (8-23) mg/dL Creatinine 3.32 H (0.60-1.20) mg/dL Glucose 83 (70-105) mg/dL Calcium 8.0 L (8.6-10.3) mg/dL Adrenal panel 08/31/17 Range/Units 04:36 Sodium 142 (136-145) mEq/L Potassium 3.6 (3.5-5.1) mEq/L Chloride 107 (98-107) mEq/L Carbon Dioxide 22 L (23-29) mEq/L BUN 84 H (8-23) mg/dL Creatinine 3.32 H (0.60-1.20) mg/dL Glucose 83 (70-105) mg/dL Calcium 8.0 L (8.6-10.3) mg/dL - Imaging CT scan - abdomen: report reviewed CT scan - pelvis: report reviewed Consult Discharge Plan - Plan Referrals: Eduardo Hernandez Jr, MD [Primary Care Provider] - 09/07/17 11:00 am Magnus Donaldson DO [Partnered Physician] - 09/11/17 10:50 am (hospital follow-up ; discuss colonoscopy (patient has never had one), guiac positive stool)
[2017-08-31] MEDS: 0.9 % Sodium Chloride 1,000 ML IVC SCH (10:18)
--- NOTE | 2017-08-31 16:31 | Nephrology Progress Note ---
Date of Encounter: 08/31/17 Time of Encounter: 16:30 - Assessment and Plan (1) Acute kidney injury Current Visit: Yes Status: Acute Renal function improving. Creatinine from 4.15 to 3.70. Continue with current plan. (2) CKD (chronic kidney disease) stage 3, GFR 30-59 ml/min Current Visit: Yes Status: Acute MARISSA on CKD hopeful for recovery. (3) Obesity (BMI 30-39.9) Current Visit: Yes Status: Chronic outpatient management. Subjective Principal diagnosis: MARISSA Interval history: Patient seen. she feels better. No new complaints. Objective - Vital Signs Vital signs: Vital Signs Temp Pulse Resp BP Pulse Ox 08/31/17 15:45 91 16 162/61 89 08/31/17 13:08 98.1 F 91 16 162/61 89 08/31/17 03:18 97.5 F L 78 20 128/68 88 08/31/17 00:00 97.7 F 94 18 116/63 87 08/30/17 21:10 97.8 F 59 18 167/67 95 Intake and Output 08/31/17 08/31/17 08/31/17 07:59 15:59 23:59 Intake Total 100 / 100 1350 / 1350 Output Total 700 / 700 Balance -600 / -600 1350 / 1350 Intake: IV Fluids 100 / 100 1350 / 1350 Ofirmev 1,000 mg/100 ml 500 mg 50 / 50 In 50 ml @ 200 mls/hr IV Q6HR PRN Rx#:[id number] Zyvox Premix 600mg/300mL 600 mg 300 / 300 In 300 ml @ 150 mls/hr IVPB Q12HR [facility] Rx#:[id number] Zosyn 3.375 GM In 0.9 % Sodium 100 / 100 Chloride 100 ML @ 25 mls/hr IVPB Q12H SARBINA Rx#:[id number] Output: Urine 700 / 700 Other: Blood Glucose* 93 197 - General Appearance General appearance: Present: well-developed, well-nourished EENT: Present: ATNC Neck: Present: supple Cardiology: Present: regular rate Integumentary: Present: warm and dry Neurologic: Present: alert and oriented x3 Psychiatric: Present: mood/affect appropriate - Lab 08/31/17 04:36 02/02/18 04:36 Most recent lab results Calcium 8.0 mg/dL (8.6-10.3) L 08/31/17 04:36 Urine Creatinine 164 mg/dL 08/28/17 17:32 Urine Sodium 35.7 mEq/L 08/28/17 17:32 Urine Total Protein 36 mg/dL 08/28/17 17:32 Consult Discharge Plan - Plan Referrals: Magnus Donaldson DO [Partnered Physician] - 09/11/17 10:50 am (hospital follow-up ; discuss colonoscopy (patient has never had one), guiac positive stool) Eduardo Hernandez Jr, MD [Primary Care Provider] - 09/07/17 11:00 am
--- NOTE | 2017-08-31 18:15 | Internal Med Progress Note ---
Date of Encounter: 08/31/17 Time of Encounter: 08:00 - Assessment and plan (1) Partial small bowel obstruction Current Visit: Yes Status: Acute Assessment and plan: NG tube was removed today. Patient is able to tolerate food and fluid without nausea or vomiting. Abd is softer and non-tender today with hyperactive bowel sounds heard in all quadrants. Surgery has signed off, I appreciate their recommendations and consultation. She will follow-up in the office in [address] Donaldson. Patient has significantly improved and will most likely be ready for discharge in the morning. Continue supportive care and pain control Continue antiemetics as needed Advance diet as tolerated (2) Obesity (BMI 30-39.9) Current Visit: Yes Status: Chronic Assessment and plan: Chronic. Lifestyle modifications discussed today. (3) Acute on chronic renal failure Current Visit: Yes Status: Chronic Assessment and plan: GFR 14, serum creatinine 3.32. Renal function improving. To see significant improvement now that GI losses through NG tube has stopped and patient is able to eat and drink. Nephrology following Continue to avoid nephrotoxins Qualifiers: Acute renal failure type: unspecified Chronic kidney disease stage: stage 3 (moderate) Qualified Code(s): N17.9 - Acute kidney failure, unspecified; N18.3 - Chronic kidney disease, stage 3 (moderate); N18.3 - Chronic kidney disease, stage 3 (moderate) (4) Chronic steroid use Current Visit: Yes Status: Chronic Assessment and plan: Due to COPD. Will continue since pt is tolerating po intake. (5) Nausea and vomiting Current Visit: Yes Status: Resolved Assessment and plan: Resolved. Patient is able to tolerate by mouth intake. Qualifiers: Vomiting type: unspecified Vomiting Intractability: unspecified Qualified Code(s): R11.2 - Nausea with vomiting, unspecified (6) COPD (chronic obstructive pulmonary disease) Current Visit: Yes Status: Chronic Assessment and plan: No acute exacerbation. Lungs clear and diminished throughout. No wheezing or respiratory distress. continue 02 to maintain sats > 92% Continue home medications and nebulizers PRN. Per daughter, pt normally wears 5L 02/NC at home, titrated with pulmonology. Patient with Rales noted in posterior bases this morning, concerning for acute exacerbation of CHF. Chest x-ray and echocardiogram have been ordered. Qualifiers: COPD type: unspecified COPD Qualified Code(s): J44.9 - Chronic obstructive pulmonary disease, unspecified (7) UTI (urinary tract infection) Current Visit: Yes Status: Suspected Assessment and plan: Urine cloudy, with large amount leukocyte esterase, 50-100 microscopic white cells, many bacteria, many squamous epithelial cells which did not trigger a culture. She denies any urinary symptoms, low abdomen is nontender to palpation. Patient has no white count or fever., CT abdomen pelvis shows small amount of gas in the bladder, in the absence of recent instrumentation, this may be related to cystitis. Patient has no leukocytosis or fever. There is no tachycardia or hypotension. No treatment recommended at this time. Qualifiers: Urinary tract infection type: acute cystitis Hematuria presence: without hematuria Qualified Code(s): N30.00 - Acute cystitis without hematuria (8) DVT prophylaxis Current Visit: Yes Status: Acute Assessment and plan: Heparin subcutaneous twice daily. Up to chair twice a day. (9) Hospital acquired PNA Current Visit: Yes Status: Acute Assessment and plan: Patient reports intermittent nonproductive cough. KUB were moderate consolidation left lower lobe with probable left pleural effusion most compatible with pneumonia. Patient received 1 dose of IV vancomycin and Zosyn. IV vancomycin was DC'd due to renal function. Pt has been started on Zyvox 600mg IV BID. Pt is on 02 5liters/NC. PT wears this at home. Patient sees pulmonology and has actually been titrated down from 8 L. Continue to monitor labs and vitals. Consider pulmonology consultation if pt continues to require additional supplemental 02. Continue 02 and titrate as needed to maintain 02 sats > 92% Continue nebs Continue IV antibiotics KUB X-Ray 08/29/17 08:48 IMPRESSION: Nasogastric tube in good position. Persistent moderate small bowel distention compatible with mechanical small bowel obstruction. Moderate consolidation with air bronchograms left lower lobe and probable left pleural effusion most compatible with pneumonia. D/ / Anupam Hardin MD / Anupam Hardin MD Interpreting Provider: Anupam Hardin MD - Time Spent With Patient less than 15 minutes - Subjective Interval history: Pt was seen at bedside at 0800 a.m. patient appears to be agitated and is requesting NG tube be removed immediately. She also is declining to go to her echocardiogram and have a chest x-ray done because her daughter is going to be coming. Patient denies any headache or dizziness, no chest pain or shortness of breath. She reports new cough this a.m., no peripheral edema. - Constitutional Vitals: Temp Pulse Resp BP Pulse Ox 98.1 F 55 16 107/67 91 08/31/17 16:50 08/31/17 16:50 08/31/17 16:50 08/31/17 16:50 08/31/17 16:50 General appearance: Present: cooperative, A&O X 3, pleasant, no acute distress, obese, answers questions appropriately - Head Head exam: Present: atraumatic, normal inspection, normocephalic - Eye Eye exam: Present: normal appearance, conjuntiva pink, sclera anicteric - Neck Neck exam general surgery: Present: normal inspection, tenderness, supple, trachea midline. Absent: lymphadenopathy - Respiratory Respiratory exam: Present: CTAB, rales, respiratory distress. Absent: accessory muscle use, chest wall tenderness, rhonchi, wheezes Additional comments: Fine Rales noted in bilateral bases - Cardiovascular Cardiovascular exam: Present: RRR, +S1, +S2. Absent: diastolic murmur, gallop, rubs, systolic murmur - GI/Abdominal GI/Abdominal exam: Present: normal bowel sounds, soft, no peritoneal signs. Absent: distended, hepatomegaly, tenderness - Extremities Exam Extremities exam: Present: normal capillary refill, normal inspection, warm, radial pulses palpable and symmetrical. Absent: calf tenderness, cyanotic, pedal edema - Neurological Exam Neurological exam: Present: alert, oriented X3, no focal deficits. Absent: facial droop, speech deficit - Skin Skin exam: Present: dry, intact, normal color, warm. Absent: rash Internal Medicine: Result - Labs CBC & Chem 7: 08/31/17 04:36 08/31/17 04:36 Labs: Short CBC 08/31/17 Range/Units 04:36 WBC 7.7 (4.3-11.1) K/mcL Hgb 9.9 L (11.5-15.4) g/dL Hct 31.9 L (35.3-44.9) % Plt Count 195 (140-400) K/mcL Neutrophils # 5.5 (1.6-8.9) K/mcL BMP 08/31/17 04:36 Sodium 142 Potassium 3.6 Chloride 107 Carbon Dioxide 22 L BUN 84 H Creatinine 3.32 H Glucose 83 Calcium 8.0 L - Impressions Impressions Chest X-Ray 08/30/17 16:02 IMPRESSION: Patchy opacities in the left upper lung, suspicious for infectious or inflammatory airspace disease. Small left pleural effusion with streaky basilar opacities favored to reflect atelectasis. Airspace disease such as pneumonia or aspiration is favored though possible in the appropriate clinical context. Main pulmonary artery is prominent which may indicate underlying pulmonary hypertension. Cardiac silhouette appears enlarged for degree of inspiration. D/ / Zac Salgado / Zac Salgado Interpreting Provider: Zac Salgado X-Ray 08/31/17 07:00 IMPRESSION: Persistent gaseous prominence of multiple small bowel loops in the abdomen which may reflect an ileus. Continued follow-up suggested. D/ / Frederic Varghese MD / Frederic Varghese MD Interpreting Provider: Frederic Varghese MD Consult Discharge Plan - Plan Referrals: aMgnus Donaldson DO [Partnered Physician] - 09/11/17 10:50 am (hospital follow-up ; discuss colonoscopy (patient has never had one), guiac positive stool) Eduardo Hernandez Jr, MD [Primary Care Provider] - 09/07/17 11:00 am
[2017-08-31] MEDS: Furosemide 20 MG TABLET PO SCH (20:42)
[2017-08-31] MEDS: Bumetanide 1 MG TABLET PO SCH (21:13)
[2017-08-31] MEDS: Lactobacillus 1 EACH CAP.SPRINK PO SCH (21:15)
[2017-08-31] MEDS: hydrALAZINE 25 MG TABLET PO SCH (21:16)
[2017-08-31] MEDS ORDERED: Acetaminophen 325 MG TABLET PO PRN (22:44)
[2017-09-01 03:57] LABS: Hemoglobin 9.9 g/dL (11.5-15.4); Immature Platelets 2.3 % (1.1-6.1); Mean Corpuscular HGB Conc 31.9 g/dL (31.6-35.5); Mean Corpuscular Hemoglobin 26.3 pg (28.0-33.3); Mean Corpuscular Volume 82.2 fL (83.0-100.0); Mean Platelet Volume 9.6 fL (9.4-12.4); Platelet Count 196 K/mcL (140-400); Red Blood Count 3.77 M/mcL (3.82-4.97); Red Cell Distribution Width 18.6 % (11.5-14.5)
[2017-09-01 04:20] LABS: Calcium 7.9 mg/dL (8.6-10.3); Potassium 3.3 mEq/L (3.5-5.1)
[2017-09-01 04:33] LABS: Lymphocytes # 0.6 K/mcL (0.6-4.6); Monocytes # 0.3 K/mcL (0.0-1.3); Neutrophils # 6.3 K/mcL (1.6-8.9); Platelet Estimate Normal (Normal); Reactive Lymphocytes Present (Not Present)
[2017-09-01 04:34] LABS: Anisocytosis 1+ (Not Present)
[2017-09-01] MEDS: Insulin LISPRO 300 UNITS/3 ML VIAL SQ SCH ×5 (06:17→21:01)
[2017-09-01] MEDS: Pantoprazole 40 MG VIAL IVP SCH (06:26)
[2017-09-01] MEDS: *HR* Heparin 5,000 UNIT/ML VIAL SQ SCH ×2 (06:34→16:36)
[2017-09-01] MEDS: Tiotropium 18 MCG inhalation IH SCH (08:06)
[2017-09-01] MEDS: Bumetanide 1 MG TABLET PO SCH ×2 (08:16→21:09)
[2017-09-01] MEDS: Hydrocortisone Sodium Succ 100 MG/2 ML VIAL IVP SCH ×2 (08:16→16:36)
[2017-09-01] MEDS: Diltiazem CD (24hr) 180 MG CAPSULE PO SCH (08:17)
[2017-09-01] MEDS: Vitamin B Complex/Vit C/Vit E 1 EACH TABLET PO SCH (08:17)
[2017-09-01] MEDS: Cholecalciferol (D-3) 1,000 UNIT TABLET PO SCH (08:17)
[2017-09-01] MEDS: Furosemide 20 MG TABLET PO SCH (08:17)
[2017-09-01] MEDS: Multivit/Ca/Min/Fe/FA 1 TAB TABLET PO SCH (08:17)
[2017-09-01] MEDS: hydrALAZINE 25 MG TABLET PO SCH ×4 (08:17→21:09)
[2017-09-01] MEDS: Ascorbic Acid 500 MG TABLET PO SCH (08:17)
[2017-09-01] MEDS: Lactobacillus 1 EACH CAP.SPRINK PO SCH ×2 (08:17→21:09)
[2017-09-01] MEDS: Fluticasone Propionate Nasal 50 MCG/SPRAY BOTTLE NS SCH (08:18)
[2017-09-01] MEDS: Celecoxib 100 MG CAPSULE PO SCH ×2 (08:18→08:28)
[2017-09-01] MEDS: Nystatin POWDER 30 GM BOTTLE TP SCH ×2 (08:19→21:13)
[2017-09-01] MEDS ORDERED: NON-FORMULARY MEDICATION 1 EACH EACH (Multivits Min/Iron/Fa/Herb#186 [Hair, Skin And Nails PO SCH (09:00)
[2017-09-01] MEDS ORDERED: predniSONE 10 MG TABLET PO SCH (09:00)
[2017-09-01] MEDS ORDERED: (Omega-3 Fatty Acids [Fish Oil] 300 MG) PO SCH (09:00)
[2017-09-01] MEDS ORDERED: (Umeclidinium Brm/Vilanterol Tr [Anoro Ellipta 62.5-2 IH SCH (09:00)
--- NOTE | 2017-09-01 10:16 | Nephrology Progress Note ---
Date of Encounter: 09/01/17 Time of Encounter: 10:16 - Assessment and Plan (1) Acute kidney injury Current Visit: Yes Status: Acute Renal function improving. Creatinine from 3.32 to 2.65. Continue with current plan. Avoid nephrotoxins. (2) CKD (chronic kidney disease) stage 3, GFR 30-59 ml/min Current Visit: Yes Status: Acute MARISSA on CKD hopeful for recovery. (3) Obesity (BMI 30-39.9) Current Visit: Yes Status: Chronic outpatient management. Subjective Principal diagnosis: MARISSA Interval history: Patient seen. she feels better. No new complaints. Objective - Vital Signs Vital signs: Vital Signs Temp Pulse Resp BP Pulse Ox 09/01/17 08:08 16 90 09/01/17 07:18 97.7 F 71 16 162/69 90 09/01/17 03:14 97.2 F L 59 16 144/65 92 08/31/17 23:28 96.7 F L 62 18 133/64 96 08/31/17 20:11 98.0 F 85 17 154/87 93 08/31/17 16:50 98.1 F 55 16 107/67 91 08/31/17 15:45 91 16 162/61 89 08/31/17 13:08 98.1 F 91 16 162/61 89 Intake and Output 08/31/17 09/01/17 09/01/17 23:59 07:59 15:59 Intake Total 400 / 400 100 / 100 300 / 300 Output Total 600 / 600 Balance 400 / 400 -500 / -500 300 / 300 Intake: IV Fluids 400 / 400 100 / 100 300 / 300 Zyvox Premix 600mg/300mL 600 mg 300 / 300 300 / 300 In 300 ml @ 150 mls/hr IVPB Q12HR [facility] Rx#:[id number] Zosyn 3.375 GM In 0.9 % Sodium 100 / 100 100 / 100 Chloride 100 ML @ 25 mls/hr IVPB Q12H [facility] Rx#:[id number] Output: Urine 600 / 600 Other: # Voids 1 Weight 106.413 kg Blood Glucose* 133 127 Patient Weight 09/01/17 23:59 Weight 106.413 kg - General Appearance General appearance: Present: well-developed, well-nourished, obese EENT: Present: ATNC Neck: Present: supple Respiratory: Present: clear Cardiology: Present: regular rate Integumentary: Present: warm and dry Neurologic: Present: alert and oriented x3 Psychiatric: Present: mood/affect appropriate - Lab 09/01/17 03:48 09/01/17 03:48 Most recent lab results Calcium 7.9 mg/dL (8.6-10.3) L 09/01/17 03:48 Urine Creatinine 164 mg/dL 08/28/17 17:32 Urine Sodium 35.7 mEq/L 08/28/17 17:32 Urine Total Protein 36 mg/dL 08/28/17 17:32 Consult Discharge Plan - Plan Referrals: Magnus Donaldson DO [Partnered Physician] - 09/11/17 10:50 am (hospital follow-up ; discuss colonoscopy (patient has never had one), guiac positive stool) Eduardo Hernandez Jr, MD [Primary Care Provider] - 09/07/17 11:00 am
--- NOTE | 2017-09-01 14:20 | Internal Med Progress Note ---
Date of Encounter: 09/01/17 Time of Encounter: 09:30 - Assessment and plan (1) Partial small bowel obstruction Current Visit: Yes Status: Acute Assessment and plan: NG tube was removed. Patient is able to tolerate food and fluid without nausea or vomiting. Abd is softer and non-tender today with hyperactive bowel sounds heard in all quadrants. Surgery has signed off, I appreciate their recommendations and consultation. She will follow-up in the office in [address] Donaldson. Patient has significantly improved and states that she feels she will be ready for discharge tomorrow. She is able to tolerate a soft diet Continue supportive care and pain control Continue antiemetics as needed Advance diet as tolerated (2) Obesity (BMI 30-39.9) Current Visit: Yes Status: Chronic Assessment and plan: Chronic. Lifestyle modifications. (3) Acute on chronic renal failure Current Visit: Yes Status: Chronic Assessment and plan: GFR 18, serum creatinine 2.26. Renal function improving. significant improvement now that GI losses through NG tube have stopped and patient is able to eat and drink. Nephrology following Continue to avoid nephrotoxins Qualifiers: Acute renal failure type: unspecified Chronic kidney disease stage: stage 3 (moderate) Qualified Code(s): N17.9 - Acute kidney failure, unspecified; N18.3 - Chronic kidney disease, stage 3 (moderate); N18.3 - Chronic kidney disease, stage 3 (moderate) (4) Chronic steroid use Current Visit: Yes Status: Chronic Assessment and plan: Due to COPD. Will continue since pt is tolerating po intake. (5) Nausea and vomiting Current Visit: Yes Status: Resolved Assessment and plan: Resolved. Patient is able to tolerate by mouth intake. Soft diet. Qualifiers: Vomiting type: unspecified Vomiting Intractability: unspecified Qualified Code(s): R11.2 - Nausea with vomiting, unspecified (6) COPD (chronic obstructive pulmonary disease) Current Visit: Yes Status: Chronic Assessment and plan: No acute exacerbation. Lungs clear and diminished throughout. No wheezing or respiratory distress. continue 02 to maintain sats > 92% Continue home medications and nebulizers PRN. Per daughter, pt normally wears 5L 02/NC at home, titrated with pulmonology. Pt is back at her baseline use. Patient with Rales noted in posterior bases this morning, concerning for acute exacerbation of CHF. Chest x-ray shows possible pneumonia or aspiration, she is being treated with antibiotics. Her cardiogram shows LVEF 55-60% and no significant valvular dysfunction. BNP is only mildly elevated at 156. Qualifiers: COPD type: unspecified COPD Qualified Code(s): J44.9 - Chronic obstructive pulmonary disease, unspecified (7) UTI (urinary tract infection) Current Visit: Yes Status: Resolved Assessment and plan: Urine cloudy, with large amount leukocyte esterase, 50-100 microscopic white cells, many bacteria, many squamous epithelial cells which did not trigger a culture. She denies any urinary symptoms, low abdomen is nontender to palpation. Patient has no white count or fever., CT abdomen pelvis shows small amount of gas in the bladder, in the absence of recent instrumentation, this may be related to cystitis. Patient has no leukocytosis or fever. There is no tachycardia or hypotension. No treatment recommended at this time. Qualifiers: Urinary tract infection type: acute cystitis Hematuria presence: without hematuria Qualified Code(s): N30.00 - Acute cystitis without hematuria (8) DVT prophylaxis Current Visit: Yes Status: Acute Assessment and plan: Heparin subcutaneous twice daily. Up to chair twice a day. (9) Hospital acquired PNA Current Visit: Yes Status: Acute Assessment and plan: Pt is on 02 5liters/NC. PT wears this at home. Continue to monitor labs and vitals. Patient has no leukocytosis, fever, tachycardia or signs of sepsis. She is in no distress and is at her baseline oxygen use. Consider pulmonology consultation if pt continues to require additional supplemental 02. Continue 02 and titrate as needed to maintain 02 sats > 92% Continue nebs Continue IV antibiotics KUB X-Ray 08/29/17 08:48 IMPRESSION: Nasogastric tube in good position. Persistent moderate small bowel distention compatible with mechanical small bowel obstruction. Moderate consolidation with air bronchograms left lower lobe and probable left pleural effusion most compatible with pneumonia. D/ / Anupam Hardin MD / Anupam Hardin MD Interpreting Provider: Anupam Hardin MD - Time Spent With Patient less than 15 minutes - Subjective Interval history: Pt was seen at bedside at 0930 a.m. patient looks much better today, she states that she feels better. She is able to tolerate soft diet. Patient reports episode of diarrhea last p.m., has had none since. She states that she feels that she will be ready to go home tomorrow Patient denies any headache or dizziness, no chest pain or shortness of breath. She reports new cough this a.m., no peripheral edema. - Constitutional Vitals: Temp Pulse Resp BP Pulse Ox 97.1 F L 64 17 142/64 92 09/01/17 12:31 09/01/17 12:31 09/01/17 12:31 09/01/17 12:31 09/01/17 12:31 General appearance: Present: cooperative, A&O X 3, pleasant, no acute distress, obese, answers questions appropriately - Head Head exam: Present: atraumatic, normal inspection, normocephalic - Eye Eye exam: Present: normal appearance, conjuntiva pink, sclera anicteric - Neck Neck exam general surgery: Present: supple, trachea midline. Absent: lymphadenopathy, tenderness - Respiratory Respiratory exam: Present: decreased breath sounds, CTAB. Absent: accessory muscle use, rales, rhonchi, wheezes - Cardiovascular Cardiovascular exam: Present: RRR, +S1, +S2. Absent: diastolic murmur, gallop, rubs, systolic murmur - GI/Abdominal GI/Abdominal exam: Present: normal bowel sounds, soft, no peritoneal signs. Absent: distended, hepatomegaly, tenderness - Extremities Exam Extremities exam: Present: normal capillary refill, normal inspection, warm, radial pulses palpable and symmetrical. Absent: calf tenderness, cyanotic, pedal edema - Neurological Exam Neurological exam: Present: alert, oriented X3, no focal deficits. Absent: facial droop, speech deficit - Skin Skin exam: Present: dry, intact, normal color, warm. Absent: rash Internal Medicine: Result - Labs CBC & Chem 7: 09/01/17 03:48 09/01/17 03:48 Labs: Short CBC 09/01/17 Range/Units 03:48 WBC 7.2 (4.3-11.1) K/mcL Hgb 9.9 L (11.5-15.4) g/dL Hct 31.0 L (35.3-44.9) % Plt Count 196 (140-400) K/mcL Neutrophils # 6.3 (1.6-8.9) K/mcL BMP 09/01/17 03:48 Sodium 142 Potassium 3.3 L Chloride 107 Carbon Dioxide 25 BUN 76 H Creatinine 2.65 H Glucose 138 H Calcium 7.9 L - Impressions Impressions Abdomen/Pelvis CT 08/30/17 13:30 IMPRESSION: 1. Slight interval improvement of small bowel dilation. A discrete transition point is not identified on today's exam. There is tapering of the small bowel to normal caliber. 2. Cholelithiasis. 3. Age-indeterminate L2 and L5 compression deformities. 4. No significant interval change of bibasilar airspace opacities. D/ / 08/30/2017 14:46:21 Radha Sanchez MD / jame Interpreting Provider: Radha Sanchez MD X-Ray 08/31/17 07:00 IMPRESSION: Persistent gaseous prominence of multiple small bowel loops in the abdomen which may reflect an ileus. Continued follow-up suggested. D/ / Frederic Varghese MD / Frederic Varghese MD Interpreting Provider: Frederic Varghese MD Echocardiogram 08/31/17 16:07 Impressions: Technically sub-optimal due to clinical status. Apical views not obtained. LVEF 55-60%. Grossly normal LV size and function. Mild concentric left ventricular hypertrophy. Diastolic function not assessed. Normal right ventricular structure and function. No evidence of pulmonary hypertension. No obvious significant valvular dysfunction. Findings: Study Quality * Technically sub-optimal due to clinical status. Apical views not obtained. ECG Findings * Sinus rhythm with BBB. Left Ventricle * LVEF 55-60%. * Grossly normal LV size and function. * Mild concentric left ventricular hypertrophy. * Diastolic function not assessed. Right Ventricle * Normal right ventricular structure and function. Left Atrium * Left atrium is not well visualized. Right Atrium * Right atrium is not well visualized. Interatrial Septum * Interatrial septum not well evaluated. Aortic Valve * Aortic valve not well visualized. * No aortic regurgitation. * No aortic stenosis. Mitral Valve * Normal mitral valve structure and function. * No mitral regurgitation. * No mitral stenosis. Tricuspid Valve * Normal tricuspid valve structure. * Trace tricuspid regurgitation. * No evidence of pulmonary hypertension. Pulmonic Valve * Pulmonic valve not well visualized. Aorta * Normally sized aortic root. Pericardium * The pericardium appears normal. IVC * Normal IVC dimensions and inspiratory collapse. Pulmonary Artery * Pulmonary artery not well visualized. Consult Discharge Plan - Plan Referrals: Magnus Donaldson DO [Partnered Physician] - 09/11/17 10:50 am (hospital follow-up ; discuss colonoscopy (patient has never had one), guiac positive stool) Eduardo Hernandez Jr, MD [Primary Care Provider] - 09/07/17 11:00 am
[2017-09-01] MEDS ORDERED: D5% in Water 1,000 ML IVC PRN (17:43)
[2017-09-01] MEDS ORDERED: Dextrose Gel 15 GM/37.5 ML TUBE PO PRN ×2 (17:43)
[2017-09-01] MEDS ORDERED: *HR* Dextrose 50 % in Water (Syg) 50 ML SYRINGE IVP PRN (17:43)
[2017-09-01] MEDS: Budesonide/Formoterol 160/4.5 MDI IH SCH (20:34)
[2017-09-01] MEDS: Acetaminophen 325 MG TABLET PO PRN (21:12)
[2017-09-02] MEDS: Hydrocortisone Sodium Succ 100 MG/2 ML VIAL IVP SCH ×3 (00:22→15:43)
[2017-09-02 05:05] LABS: Calcium 7.3 mg/dL (8.6-10.3); Potassium 2.8 mEq/L (3.5-5.1)
[2017-09-02] MEDS: *HR* Heparin 5,000 UNIT/ML VIAL SQ SCH ×2 (06:32→15:42)
[2017-09-02] MEDS: Fluticasone Propionate Nasal 50 MCG/SPRAY BOTTLE NS SCH (07:30)
[2017-09-02] MEDS: Tiotropium 18 MCG inhalation IH SCH (07:31)
[2017-09-02] MEDS: Nystatin POWDER 30 GM BOTTLE TP SCH ×2 (07:31→21:23)
[2017-09-02] MEDS: Furosemide 20 MG TABLET PO SCH (07:34)
[2017-09-02] MEDS: Vitamin B Complex/Vit C/Vit E 1 EACH TABLET PO SCH (07:34)
[2017-09-02] MEDS: Bumetanide 1 MG TABLET PO SCH ×2 (07:34→21:24)
[2017-09-02] MEDS: Celecoxib 100 MG CAPSULE PO SCH (07:35)
[2017-09-02] MEDS: Ascorbic Acid 500 MG TABLET PO SCH (07:35)
[2017-09-02] MEDS: Diltiazem CD (24hr) 180 MG CAPSULE PO SCH (07:35)
[2017-09-02] MEDS: Lactobacillus 1 EACH CAP.SPRINK PO SCH ×2 (07:35→21:24)
[2017-09-02] MEDS: Multivit/Ca/Min/Fe/FA 1 TAB TABLET PO SCH (07:35)
[2017-09-02] MEDS: Cholecalciferol (D-3) 1,000 UNIT TABLET PO SCH (07:35)
[2017-09-02] MEDS: hydrALAZINE 25 MG TABLET PO SCH ×4 (07:35→21:23)
[2017-09-02] MEDS: Insulin LISPRO 300 UNITS/3 ML VIAL SQ SCH ×4 (07:36→21:27)
[2017-09-02] MEDS: Budesonide/Formoterol 160/4.5 MDI IH SCH ×2 (07:53→20:10)
[2017-09-02] MEDS ORDERED: 0.9 % Sodium Chloride 1,000 ML IVC SCH (08:15)
--- NOTE | 2017-09-02 11:09 | Nephrology Progress Note ---
Date of Encounter: 09/02/17 Time of Encounter: 11:08 - Assessment and Plan (1) Acute kidney injury Current Visit: Yes Status: Acute Renal function improving. Creatinine from 3.32 to 2.65 to 2.77. Continue with current plan. If creatinine does not improve may need to decrease furosemide. Avoid nephrotoxins. (2) CKD (chronic kidney disease) stage 3, GFR 30-59 ml/min Current Visit: Yes Status: Acute MARISSA on CKD hopeful for recovery. (3) Obesity (BMI 30-39.9) Current Visit: Yes Status: Chronic outpatient management. (4) Hypokalemia Current Visit: No Status: Acute Replace potassium as needed. Check magnesium. (5) Hypocalcemia Current Visit: Yes Status: Acute Follow calcium level. Check PTH and vitamin D Check ionized calcium. (6) Anemia Current Visit: Yes Status: Acute Monitor hemoglobin. Check iron stores, vitamin B12 and folate. Qualifiers: Qualified Code(s): D64.9 - Anemia, unspecified Subjective Principal diagnosis: MARISSA Interval history: Patient seen. she feels better. No new complaints. Objective - Vital Signs Vital signs: Vital Signs Temp Pulse Resp BP Pulse Ox 09/02/17 07:57 16 92 09/02/17 06:34 97.6 F 61 16 133/78 92 09/02/17 03:17 98.1 F 50 16 130/67 95 09/01/17 23:28 97.7 F 55 16 123/54 95 09/01/17 18:46 97.9 F 74 16 135/61 91 09/01/17 16:18 98 F 58 16 178/67 91 09/01/17 12:31 97.1 F L 64 17 142/64 92 Intake and Output 09/01/17 09/02/17 09/02/17 23:59 07:59 15:59 Intake Total 300 / 300 100 / 100 100 / 100 Balance 300 / 300 100 / 100 100 / 100 Intake: IV Fluids 300 / 300 100 / 100 100 / 100 Zyvox Premix 600mg/300mL 600 mg 300 / 300 In 300 ml @ 150 mls/hr IVPB Q12HR [facility] Rx#:[id number] Zosyn 3.375 GM In 0.9 % Sodium 100 / 100 Chloride 100 ML @ 25 mls/hr IVPB Q12H [facility] Rx#:[id number] Potassium Chloride 10 mEq/100mL 100 / 100 10 meq In 100 ml @ 100 mls/hr IVPB Q1H [facility] Rx#:[id number] Other: Stool Size Moderate Stool Consistency loose Stool Color Brown # Bowel Movements 1 Weight 104.508 kg Blood Glucose* 182 160 Patient Weight 09/02/17 23:59 Weight 104.508 kg - General Appearance General appearance: Present: well-developed, well-nourished, obese EENT: Present: ATNC Respiratory: Present: rhonchi Cardiology: Present: edema, regular rate Gastrointestinal: Present: obese Integumentary: Present: warm and dry Neurologic: Present: alert and oriented x3 Psychiatric: Present: mood/affect appropriate - Lab 09/01/17 03:48 09/02/17 04:30 Most recent lab results Calcium 7.3 mg/dL (8.6-10.3) L 09/02/17 04:30 Urine Creatinine 164 mg/dL 08/28/17 17:32 Urine Sodium 35.7 mEq/L 08/28/17 17:32 Urine Total Protein 36 mg/dL 08/28/17 17:32 Consult Discharge Plan - Plan Referrals: Magnus Donaldson DO [Partnered Physician] - 09/11/17 10:50 am (hospital follow-up ; discuss colonoscopy (patient has never had one), guiac positive stool) Eduardo Hernandez Jr, MD [Primary Care Provider] - 09/07/17 11:00 am
--- NOTE | 2017-09-02 17:24 | Internal Med Progress Note ---
Date of Encounter: 09/02/17 Time of Encounter: 12:00 - Assessment and plan (1) Partial small bowel obstruction Current Visit: Yes Status: Acute Assessment and plan: Abd is soft and non-tender to palpation. BS present x 4. Pt is able to tolerate regular diet. Follow up with surgery outpatient after discharge. Continue supportive care and pain control Continue antiemetics as needed Advance diet as tolerated (2) Obesity (BMI 30-39.9) Current Visit: Yes Status: Chronic Assessment and plan: Chronic. Lifestyle modifications. (3) Acute on chronic renal failure Current Visit: Yes Status: Chronic Assessment and plan: GFR 17, serum creatinine 2.77. Renal function improving. Significant improvement now that GI losses through NG tube have stopped and patient is able to eat and drink. Continue to monitor. Nephrology following Continue to avoid nephrotoxins Qualifiers: Acute renal failure type: unspecified Chronic kidney disease stage: stage 3 (moderate) Qualified Code(s): N17.9 - Acute kidney failure, unspecified; N18.3 - Chronic kidney disease, stage 3 (moderate); N18.3 - Chronic kidney disease, stage 3 (moderate) (4) Chronic steroid use Current Visit: Yes Status: Chronic Assessment and plan: Due to COPD. Will continue since pt is tolerating po intake. (5) COPD (chronic obstructive pulmonary disease) Current Visit: Yes Status: Chronic Assessment and plan: No acute exacerbation. Lungs clear and diminished throughout. No wheezing or respiratory distress. Continue 02 to maintain sats > 92% Continue home medications and nebulizers PRN. Pt is back at her baseline 02 use. Patient with Rales noted in posterior bases, concerning for acute exacerbation of CHF. Chest x-ray shows possible pneumonia or aspiration, she is being treated with antibiotics. Her cardiogram shows LVEF 55-60% and no significant valvular dysfunction. BNP is only mildly elevated at 156. Continue Lasix 60 mg by mouth daily and Bumex 2mg by mouth twice daily. Qualifiers: COPD type: unspecified COPD Qualified Code(s): J44.9 - Chronic obstructive pulmonary disease, unspecified (6) DVT prophylaxis Current Visit: Yes Status: Acute Assessment and plan: Heparin subcutaneous twice daily. Up to chair twice a day. Patient has been ambulatory in the room. (7) Hospital acquired PNA Current Visit: Yes Status: Acute Assessment and plan: Pt is on 02 5liters/NC. PT wears this at home. Continue to monitor labs and vitals. Patient has no leukocytosis, fever, tachycardia or signs of sepsis. She is in no distress and is at her baseline oxygen use. Consider pulmonology consultation if pt continues to require additional supplemental 02. Patient also has rails in bilateral bases. Echo was within normal limits, BNP is only mildly elevated. Continue home doses of Bumex and Lasix. Continue 02 and titrate as needed to maintain 02 sats > 92% Continue nebs Continue IV antibiotics KUB X-Ray 08/29/17 08:48 IMPRESSION: Nasogastric tube in good position. Persistent moderate small bowel distention compatible with mechanical small bowel obstruction. Moderate consolidation with air bronchograms left lower lobe and probable left pleural effusion most compatible with pneumonia. D/ / Anuapm Hardin MD / Anupam Hardin MD Interpreting Provider: Anupam Hardin MD - Time Spent With Patient less than 15 minutes - Subjective Interval history: Pt was seen at bedside at 1200. Patient reports 5-6 episodes of diarrhea. Patient denies any headache or dizziness, no chest pain or shortness of breath. - Constitutional Vitals: Temp Pulse Resp BP Pulse Ox 98.1 F 61 18 122/56 94 09/02/17 14:26 09/02/17 14:26 09/02/17 14:26 09/02/17 14:26 09/02/17 14:26 General appearance: Present: cooperative, A&O X 3, pleasant, no acute distress, obese, answers questions appropriately - Head Head exam: Present: atraumatic, normal inspection, normocephalic - Eye Eye exam: Present: normal appearance, conjuntiva pink, sclera anicteric - Neck Neck exam general surgery: Present: supple, trachea midline. Absent: lymphadenopathy, tenderness - Respiratory Respiratory exam: Present: chest wall tenderness, CTAB. Absent: accessory muscle use, decreased breath sounds, rales, respiratory distress, rhonchi, wheezes - Cardiovascular Cardiovascular exam: Present: RRR, +S1, +S2. Absent: diastolic murmur, gallop, rubs, systolic murmur - GI/Abdominal GI/Abdominal exam: Present: normal bowel sounds, soft, no peritoneal signs. Absent: distended, hepatomegaly, tenderness - Extremities Exam Extremities exam: Present: normal capillary refill, normal inspection, warm, radial pulses palpable and symmetrical. Absent: calf tenderness, cyanotic, pedal edema, tenderness - Neurological Exam Neurological exam: Present: alert, oriented X3, no focal deficits. Absent: facial droop, speech deficit - Skin Skin exam: Present: dry, intact, normal color, warm. Absent: rash Internal Medicine: Result - Labs CBC & Chem 7: 09/01/17 03:48 09/02/17 04:30 Labs: BMP 09/02/17 04:30 Sodium 141 Potassium 2.8 L Chloride 106 Carbon Dioxide 24 BUN 76 H Creatinine 2.77 H Glucose 155 H Calcium 7.3 L Consult Discharge Plan - Plan Referrals: Magnus Donaldson DO [Partnered Physician] - 09/11/17 10:50 am (hospital follow-up ; discuss colonoscopy (patient has never had one), guiac positive stool) Eduarod Hernandez Jr, MD [Primary Care Provider] - 09/07/17 11:00 am
[2017-09-02] MEDS: Linezolid 600 MG TABLET PO SCH (21:23)
[2017-09-02] MEDS: Acetaminophen 325 MG TABLET PO PRN (21:24)
[2017-09-03] MEDS: Hydrocortisone Sodium Succ 100 MG/2 ML VIAL IVP SCH ×3 (00:16→18:34)
[2017-09-03 05:23] LABS: VBG Ionized Calcium 1.03 mmol/L (1.15-1.35); VBG PH 7.33 pH Units (7.32-7.42)
[2017-09-03 05:25] LABS: Hematocrit 31.9 % (35.3-44.9); Hemoglobin 9.8 g/dL (11.5-15.4); Mean Corpuscular HGB Conc 30.7 g/dL (31.6-35.5); Mean Corpuscular Hemoglobin 25.6 pg (28.0-33.3); Mean Corpuscular Volume 83.3 fL (83.0-100.0); Mean Platelet Volume 9.9 fL (9.4-12.4); Monocytes # 0.4 K/mcL (0.0-1.3); Platelet Count 148 K/mcL (140-400); Red Blood Count 3.83 M/mcL (3.82-4.97); Red Cell Distribution Width 18.6 % (11.5-14.5)
[2017-09-03 06:16] LABS: Calcium 7.3 mg/dL (8.6-10.3); Potassium 2.8 mEq/L (3.5-5.1)
[2017-09-03 06:17] LABS: % Iron Saturation 40 % (15-50); Ferritin 144 ng/ml (10-120); Iron 89 mcg/dL (50-170); Transferrin 158 mg/dL (203-362)
[2017-09-03] MEDS: *HR* Heparin 5,000 UNIT/ML VIAL SQ SCH ×2 (06:20→18:54)
[2017-09-03 06:45] LABS: Lymphocytes # 0.8 K/mcL (0.6-4.6); Neutrophils # 5.7 K/mcL (1.6-8.9); Platelet Estimate Normal (Normal)
[2017-09-03 06:46] LABS: Anisocytosis 1+ (Not Present); Burr Cells 1+ (Not Present)
[2017-09-03] MEDS: Budesonide/Formoterol 160/4.5 MDI IH SCH ×2 (08:18→20:29)
[2017-09-03] MEDS: Tiotropium 18 MCG inhalation IH SCH (08:18)
[2017-09-03] MEDS: Lactobacillus 1 EACH CAP.SPRINK PO SCH ×2 (08:52→20:37)
[2017-09-03] MEDS: Diltiazem CD (24hr) 180 MG CAPSULE PO SCH (08:52)
[2017-09-03] MEDS: Bumetanide 1 MG TABLET PO SCH ×2 (08:52→20:37)
[2017-09-03] MEDS: Multivit/Ca/Min/Fe/FA 1 TAB TABLET PO SCH (08:53)
[2017-09-03] MEDS: hydrALAZINE 25 MG TABLET PO SCH ×4 (08:53→20:38)
[2017-09-03] MEDS: Ascorbic Acid 500 MG TABLET PO SCH (08:53)
[2017-09-03] MEDS: Vitamin B Complex/Vit C/Vit E 1 EACH TABLET PO SCH (08:53)
[2017-09-03] MEDS: Cholecalciferol (D-3) 1,000 UNIT TABLET PO SCH (08:54)
[2017-09-03] MEDS: Linezolid 600 MG TABLET PO SCH ×2 (08:54→20:37)
[2017-09-03] MEDS: Celecoxib 100 MG CAPSULE PO SCH (08:54)
[2017-09-03] MEDS: Furosemide 20 MG TABLET PO SCH (08:55)
[2017-09-03] MEDS: Insulin LISPRO 300 UNITS/3 ML VIAL SQ SCH ×4 (08:56→20:38)
[2017-09-03] MEDS: Fluticasone Propionate Nasal 50 MCG/SPRAY BOTTLE NS SCH (09:16)
[2017-09-03] MEDS: Nystatin POWDER 30 GM BOTTLE TP SCH ×2 (09:17→20:38)
--- NOTE | 2017-09-03 12:42 | Nephrology Progress Note ---
Date of Encounter: 09/03/17 Time of Encounter: 12:39 - Assessment and Plan (1) Acute kidney injury Current Visit: Yes Status: Acute Renal function improving. Creatinine from 3.32 to 2.65 to 2.77 to 2.45. Continue with current plan. Tolerating diuresis. Avoid nephrotoxins. (2) CKD (chronic kidney disease) stage 3, GFR 30-59 ml/min Current Visit: Yes Status: Acute MARISSA on CKD hopeful for recovery. (3) Obesity (BMI 30-39.9) Current Visit: Yes Status: Chronic outpatient management. (4) Hypokalemia Current Visit: No Status: Acute Replace potassium as needed. Magnesium extremely low. Will replace magnesium then give IV potassium. (5) Hypocalcemia Current Visit: Yes Status: Acute Follow calcium level. PTH normal and vitamin D normal, but on the low side. Will start ergocalciferol. Give IV calcium. (6) Anemia Current Visit: Yes Status: Acute Monitor hemoglobin. Iron stores, vitamin B12 and folate are all normal. Qualifiers: Qualified Code(s): D64.9 - Anemia, unspecified Subjective Principal diagnosis: MARISSA Interval history: Patient seen. she feels better. No new complaints. Objective - Vital Signs Vital signs: Vital Signs Temp Pulse Resp BP Pulse Ox 09/03/17 12:01 97.7 F 54 15 174/68 96 09/03/17 08:24 97.6 F 56 15 134/65 94 09/03/17 08:18 16 94 09/03/17 03:33 97.5 F L 54 16 125/57 95 09/02/17 23:27 97.3 F L 51 16 105/53 95 09/02/17 20:10 19 95 09/02/17 18:26 98.0 F 98 16 144/67 94 09/02/17 14:26 98.1 F 61 18 122/56 94 Intake and Output 09/02/17 09/03/17 09/03/17 23:59 07:59 15:59 Intake Total 200 / 200 100 / 100 100 / 100 Balance 200 / 200 100 / 100 100 / 100 Intake: IV Fluids 200 / 200 100 / 100 100 / 100 Zosyn 3.375 GM In 0.9 % Sodium 100 / 100 Chloride 100 ML @ 25 mls/hr IVPB Q12H [facility] Rx#:[id number] Potassium Chloride 10 mEq/100mL 200 / 200 100 / 100 10 meq In 100 ml @ 100 mls/hr IVPB Q1H [facility] Rx#:[id number] Other: Stool Size Moderate Stool Consistency loose liquid # Voids 1 # Bowel Movements 1 Blood Glucose* 157 190 - General Appearance General appearance: Present: well-developed, well-nourished, obese EENT: Present: ATNC Neck: Present: supple Respiratory: Present: course breath sounds, rhonchi Cardiology: Present: edema, regular rate Gastrointestinal: Present: obese Integumentary: Present: warm and dry Neurologic: Present: alert and oriented x3 Psychiatric: Present: mood/affect appropriate - Lab 09/03/17 04:55 09/03/17 04:55 Most recent lab results Calcium 7.3 mg/dL (8.6-10.3) L 09/03/17 04:55 Magnesium 0.9 mg/dL (1.6-2.6) L 09/03/17 04:55 Urine Creatinine 164 mg/dL 08/28/17 17:32 Urine Sodium 35.7 mEq/L 08/28/17 17:32 Urine Total Protein 36 mg/dL 08/28/17 17:32 Consult Discharge Plan - Plan Referrals: Magnus Donaldson DO [Partnered Physician] - 09/11/17 10:50 am (hospital follow-up ; discuss colonoscopy (patient has never had one), guiac positive stool) Eduardo Hernandez Jr, MD [Primary Care Provider] - 09/07/17 11:00 am
[2017-09-03] MEDS ORDERED: Potassium Chloride Elixir 20 MEQ/15 ML UDC PO ONE (12:44)
[2017-09-03] MEDS ORDERED: Calcium Gluconate 2,000 MG in D5% in Water 100 ML IVPB ONE (12:48)
[2017-09-03] MEDS ORDERED: Furosemide 20 MG TABLET PO SCH (17:30)
--- NOTE | 2017-09-03 18:43 | Internal Med Progress Note ---
Date of Encounter: 09/03/17 Time of Encounter: 08:45 - Assessment and plan (1) Partial small bowel obstruction Current Visit: Yes Status: Resolved Assessment and plan: Resolved. Patient is eating and drinking normally, no abdominal pain. Patient now has diarrhea. (2) Obesity (BMI 30-39.9) Current Visit: Yes Status: Chronic Assessment and plan: Chronic. Lifestyle modifications. (3) Acute on chronic renal failure Current Visit: Yes Status: Chronic Assessment and plan: GFR 19, serum creatinine 2.45. Renal function improving. Marc has been d/c' d. Nephrology following Continue to avoid nephrotoxins Retroperitoneum Ultrasound 08/28/17 19:00 IMPRESSION: 1. Atrophic right kidney with renal cortical cysts. 2. Normal sonographic appearance of the left kidney. 3. No hydronephrosis of either kidney. D/ / Henry Argueta / Henry Argueta Interpreting Provider: Henry Argueta Qualifiers: Acute renal failure type: unspecified Chronic kidney disease stage: stage 3 (moderate) Qualified Code(s): N17.9 - Acute kidney failure, unspecified; N18.3 - Chronic kidney disease, stage 3 (moderate); N18.3 - Chronic kidney disease, stage 3 (moderate) (4) COPD (chronic obstructive pulmonary disease) Current Visit: Yes Status: Chronic Assessment and plan: No acute exacerbation. Lungs clear and diminished throughout. No wheezing or respiratory distress. Continue 02 to maintain sats > 92% Continue home medications and nebulizers PRN. Pt is back at her baseline 02 use. Patient with Rales noted in posterior bases, concerning for acute exacerbation of CHF. Chest x-ray shows possible pneumonia or aspiration, she is being treated with antibiotics. Her cardiogram shows LVEF 55-60% and no significant valvular dysfunction. BNP is only mildly elevated at 156. Echo with LVEF of 55- 60%, mild concentric LV hypertrophy and no significant valvular dysfunction. Bumex 2mg by mouth twice daily. Lasix DC'd. Chest X-Ray 08/30/17 16:02 IMPRESSION: Patchy opacities in the left upper lung, suspicious for infectious or inflammatory airspace disease. Small left pleural effusion with streaky basilar opacities favored to reflect atelectasis. Airspace disease such as pneumonia or aspiration is favored though possible in the appropriate clinical context. Main pulmonary artery is prominent which may indicate underlying pulmonary hypertension. Cardiac silhouette appears enlarged for degree of inspiration. D/ / Zac Salgado / Zac Salgado Interpreting Provider: Zac Salgado Echocardiogram 08/31/17 16:07 Impressions: Technically sub-optimal due to clinical status. Apical views not obtained. LVEF 55-60%. Grossly normal LV size and function. Mild concentric left ventricular hypertrophy. Diastolic function not assessed. Normal right ventricular structure and function. No evidence of pulmonary hypertension. No obvious significant valvular dysfunction. Qualifiers: COPD type: unspecified COPD Qualified Code(s): J44.9 - Chronic obstructive pulmonary disease, unspecified (5) DVT prophylaxis Current Visit: Yes Status: Acute Assessment and plan: Heparin subcutaneous twice daily. Up to chair twice a day. Patient has been ambulatory in the room. (6) Hospital acquired PNA Current Visit: Yes Status: Acute Assessment and plan: Pt is on 02 5liters/NC. PT wears this at home. Continue to monitor labs and vitals. Patient has no leukocytosis, fever, tachycardia or signs of sepsis. She is in no distress and is at her baseline oxygen use. Consider pulmonology consultation if pt continues to require additional supplemental 02. Patient also has rails in bilateral bases. Echo was within normal limits, BNP is only mildly elevated. Continue home doses of Bumex. Continue 02 and titrate as needed to maintain 02 sats > 92% Continue nebs Continue IV antibiotics Chest X-Ray 08/30/17 16:02 IMPRESSION: Patchy opacities in the left upper lung, suspicious for infectious or inflammatory airspace disease. Small left pleural effusion with streaky basilar opacities favored to reflect atelectasis. Airspace disease such as pneumonia or aspiration is favored though possible in the appropriate clinical context. Main pulmonary artery is prominent which may indicate underlying pulmonary hypertension. Cardiac silhouette appears enlarged for degree of inspiration. D/ : / Zac Salgado / Zac Salgado Interpreting Provider: Zac Salgado - Time Spent With Patient less than 15 minutes - Subjective Interval history: Pt was seen at bedside at 0845. Patient reports continued diarrhea with cramping. She denies any bright red bleeding. Patient denies any headache or dizziness, no chest pain or shortness of breath. she states that she feels significantly better. GI panel still pending. - Constitutional Vitals: Temp Pulse Resp BP Pulse Ox 97.8 F 65 16 145/65 95 09/03/17 16:33 09/03/17 16:33 09/03/17 16:33 09/03/17 16:33 09/03/17 16:33 General appearance: Present: cooperative, A&O X 3, pleasant, no acute distress, obese, answers questions appropriately - Head Head exam: Present: atraumatic, normal inspection, normocephalic - Eye Eye exam: Present: normal appearance, conjuntiva pink, sclera anicteric - Neck Neck exam general surgery: Present: supple, trachea midline. Absent: lymphadenopathy - Respiratory Respiratory exam: Present: CTAB. Absent: accessory muscle use, rales, rhonchi, wheezes - Cardiovascular Cardiovascular exam: Present: RRR, +S1, +S2. Absent: diastolic murmur, gallop, rubs, systolic murmur - GI/Abdominal GI/Abdominal exam: Present: normal bowel sounds, soft. Absent: distended, hepatomegaly, tenderness - Extremities Exam Extremities exam: Present: normal capillary refill, normal inspection, warm, radial pulses palpable and symmetrical. Absent: calf tenderness, cyanotic, pedal edema - Neurological Exam Neurological exam: Present: alert, oriented X3, no focal deficits. Absent: facial droop, speech deficit - Skin Skin exam: Present: dry, intact, normal color, warm. Absent: rash Internal Medicine: Result - Labs CBC & Chem 7: 09/03/17 04:55 09/03/17 04:55 Labs: Short CBC 09/03/17 Range/Units 04:55 WBC 7.0 (4.3-11.1) K/mcL Hgb 9.8 L (11.5-15.4) g/dL Hct 31.9 L (35.3-44.9) % Plt Count 148 (140-400) K/mcL Neutrophils # 5.7 (1.6-8.9) K/mcL BMP 09/03/17 04:55 Sodium 142 Potassium 2.8 L Chloride 107 Carbon Dioxide 25 BUN 68 H Creatinine 2.45 H Glucose 136 H Calcium 7.3 L Consult Discharge Plan - Plan Referrals: Magnus Donaldson DO [Partnered Physician] - 09/11/17 10:50 am (hospital follow-up ; discuss colonoscopy (patient has never had one), guiac positive stool) Eduardo Hernandez Jr, MD [Primary Care Provider] - 09/07/17 11:00 am
[2017-09-03] MEDS: Acetaminophen 325 MG TABLET PO PRN (22:14)
[2017-09-04] MEDS: Hydrocortisone Sodium Succ 100 MG/2 ML VIAL IVP SCH ×3 (01:03→17:46)
[2017-09-04] MEDS: *HR* Heparin 5,000 UNIT/ML VIAL SQ SCH ×2 (05:55→17:45)
[2017-09-04] MEDS: Insulin LISPRO 300 UNITS/3 ML VIAL SQ SCH ×4 (07:50→21:19)
[2017-09-04] MEDS: Budesonide/Formoterol 160/4.5 MDI IH SCH ×2 (08:05→21:14)
[2017-09-04] MEDS: Tiotropium 18 MCG inhalation IH SCH (08:06)
[2017-09-04] MEDS: Ascorbic Acid 500 MG TABLET PO SCH (08:14)
[2017-09-04] MEDS: Linezolid 600 MG TABLET PO SCH ×2 (08:14→21:17)
[2017-09-04] MEDS: hydrALAZINE 25 MG TABLET PO SCH ×4 (08:15→21:22)
[2017-09-04] MEDS: Vitamin B Complex/Vit C/Vit E 1 EACH TABLET PO SCH (08:17)
[2017-09-04] MEDS: Bumetanide 1 MG TABLET PO SCH ×2 (08:17→21:17)
[2017-09-04] MEDS: Lactobacillus 1 EACH CAP.SPRINK PO SCH ×2 (08:17→21:17)
[2017-09-04] MEDS: Multivit/Ca/Min/Fe/FA 1 TAB TABLET PO SCH (08:17)
[2017-09-04] MEDS: Cholecalciferol (D-3) 1,000 UNIT TABLET PO SCH (08:17)
[2017-09-04] MEDS: Celecoxib 100 MG CAPSULE PO SCH (08:40)
[2017-09-04] MEDS: Diltiazem CD (24hr) 180 MG CAPSULE PO SCH (08:43)
[2017-09-04] MEDS: Fluticasone Propionate Nasal 50 MCG/SPRAY BOTTLE NS SCH (08:44)
[2017-09-04 10:00] LABS: Hematocrit 37.3 % (35.3-44.9); Mean Corpuscular HGB Conc 30.6 g/dL (31.6-35.5); Platelet Count 209 K/mcL (140-400); Red Blood Count 4.39 M/mcL (3.82-4.97)
[2017-09-04 10:03] LABS: Hemoglobin 11.4 g/dL (11.5-15.4)
[2017-09-04 10:18] LABS: Calcium 8.5 mg/dL (8.6-10.3); Magnesium 1.8 mg/dL (1.6-2.6); Potassium 3.1 mEq/L (3.5-5.1)
[2017-09-04] MEDS: Nystatin POWDER 30 GM BOTTLE TP SCH ×2 (10:53→21:18)
[2017-09-04 10:59] LABS: Lymphocytes # 1.8 K/mcL (0.6-4.6); Monocytes # 0.6 K/mcL (0.0-1.3); Neutrophils # 11.7 K/mcL (1.6-8.9)
[2017-09-04 11:00] LABS: Reactive Lymphocytes Present (Not Present)
[2017-09-04 11:01] LABS: Anisocytosis 1+ (Not Present); Ovalocytes 1+ (Not Present)
--- NOTE | 2017-09-04 11:25 | Nephrology Progress Note ---
Date of Encounter: 09/04/17 Time of Encounter: 11:23 - Assessment and Plan (1) Acute kidney injury Current Visit: Yes Status: Acute Renal function improving Scr 2.03, GFR 24 Avoid nephrotoxins if possible Need strict I/Os (2) Hypokalemia Current Visit: No Status: Acute Improving K+ 3.1 from 2.8 Replace potassim as needed (3) Hypomagnesemia Current Visit: No Status: Resolved Mg 1.8- WNL Subjective Principal diagnosis: MARISSA Interval history: Patient seen and examined. Doing well today Objective - Vital Signs Vital signs: Vital Signs Temp Pulse Resp BP Pulse Ox 09/04/17 08:30 95 09/04/17 08:06 16 99 09/04/17 06:51 97.9 F 55 16 143/63 95 09/04/17 00:09 98.5 F 56 16 122/63 93 09/03/17 20:29 16 85 09/03/17 20:19 97.7 F 65 14 157/68 93 09/03/17 16:33 97.8 F 65 16 145/65 95 09/03/17 12:01 97.7 F 54 15 174/68 96 Intake and Output 09/03/17 09/04/17 09/04/17 23:59 07:59 15:59 Intake Total 100 / 100 240 / 240 Output Total 600 / 600 Balance 100 / 100 -600 / -600 240 / 240 Intake: IV Fluids 100 / 100 Zosyn 3.375 GM In 0.9 % Sodium 100 / 100 Chloride 100 ML @ 25 mls/hr IVPB Q12H [facility] Rx#:[id number] Oral 240 / 240 Output: Urine 600 / 600 Other: Meal Breakfast Percent of Meal Consumed 100% Stool Size Small Stool Consistency soft Stool Characteristics Mucoid Stool Color Brown # Voids 1 # Bowel Movements 1 Weight 106.73 kg Blood Glucose* 173 138 Patient Weight 09/04/17 23:59 Weight 106.73 kg - General Appearance General appearance: Present: obese EENT: Present: ATNC, mucous membranes moist, hearing intact, vision intact Neck: Present: supple Respiratory: Present: clear Cardiology: Present: no edema, normal S1, normal S2 Gastrointestinal: Present: no tenderness, no guarding, obese Integumentary: Present: warm and dry Neurologic: Present: alert and oriented x3 Psychiatric: Present: mood/affect appropriate, cooperative - Lab 09/04/17 09:40 09/04/17 09:39 Most recent lab results Calcium 8.5 mg/dL (8.6-10.3) L 09/04/17 09:39 Magnesium 1.8 mg/dL (1.6-2.6) 09/04/17 09:39 Urine Creatinine 164 mg/dL 08/28/17 17:32 Urine Sodium 35.7 mEq/L 08/28/17 17:32 Urine Total Protein 36 mg/dL 08/28/17 17:32 Consult Discharge Plan - Plan Referrals: Magnus Donaldson DO [Partnered Physician] - 09/11/17 10:50 am (hospital follow-up ; discuss colonoscopy (patient has never had one), guiac positive stool) Eduardo Hernandez Jr, MD [Primary Care Provider] - 09/07/17 11:00 am
[2017-09-04] MEDS ORDERED: Potassium Chloride Elixir 20 MEQ/15 ML UDC PO ONE (12:02)
[2017-09-04 13:02] LABS: Adenovirus F 40/41 PCR Not detected (Not detect); Astrovirus PCR Not detected (Not detect); C.difficile Toxin A/B by PCR Not detected (Not detect); Campylobacter by PCR Not detected (Not detect); Cryptosporidium by PCR Not detected (Not detect); Cyclospora cayetanensis PCR Not detected (Not detect); E. coli O157 by PCR Not detected (Not detect); Entamoeba histolytica PCR Not detected (Not detect); Enteroaggregative E.coli(EAEC) Not detected (Not detect); Enteropathogenic E.coli(EPEC) Not detected (Not detect); Enterotoxigenic E.coli (ETEC) Not detected (Not detect); Giardia lamblia PCR Not detected (Not detect); Norovirus GI/GII PCR Not detected (Not detect); Plesiomonas shigelloides PCR Not detected (Not detect); Rotavirus A PCR Not detected (Not detect); Salmonella PCR Not detected (Not detect); Sapovirus PCR Not detected (Not detect); Shig/EnteroinvasiveE coli EIEC Not detected (Not detect); Shigalike tox-prod E coli STEC Not detected (Not detect); Vibrio PCR Not detected (Not detect); Vibrio cholerae PCR Not detected (Not detect); Yersinia enterocolitica PCR Not detected (Not detect)
--- NOTE | 2017-09-04 15:33 | Internal Med Progress Note ---
Date of Encounter: 09/04/17 Time of Encounter: 11:00 - Assessment and plan (1) Diarrhea Current Visit: Yes Status: Acute Assessment and plan: Presented with stools for 1 week. Patient reports being on multiple rounds of ATB outpatient due to recurrent pneumonia. Stool studies negative. Patient reports stools are decreasing in frequency and becoming more solid on 09/04. Add PRN loperamide. Qualifiers: Diarrhea type: unspecified type Qualified Code(s): R19.7 - Diarrhea, unspecified (2) Hypokalemia Current Visit: No Status: Acute Assessment and plan: in the setting of excessive GI losses with loose stool. Monitor daily K and replace as needed. K 3.1 on 09/04, replacement ordered. Monitor repeat K level. (3) Acute on chronic renal failure Current Visit: Yes Status: Chronic Assessment and plan: renal function improving. Renal US unremarkable. Avoid nephrotoxins if possible. Need strict I/Os. Nephrology following. Scr 2.03, GFR 24 on 09/04 Qualifiers: Acute renal failure type: unspecified Chronic kidney disease stage: stage 3 (moderate) Qualified Code(s): N17.9 - Acute kidney failure, unspecified; N18.3 - Chronic kidney disease, stage 3 (moderate); N18.3 - Chronic kidney disease, stage 3 (moderate) (4) Anemia Current Visit: Yes Status: Acute Assessment and plan: of chronic disease. Hgb stable. Intermittently monitor. Qualifiers: Qualified Code(s): D64.9 - Anemia, unspecified (5) Partial small bowel obstruction Current Visit: Yes Status: Resolved Assessment and plan: presented with left sided abdominal tenderness, abdominal bloating, nausea/ vomiting, poor appetite for 1 week. Abdominal/pelvis CT concerning for partial small bowel obstruction. Initially managed with nothing by mouth and NG. Diet was slowly advanced. Patient now tolerating regular diet and having loose stool. Now resolved. Gen. surgery followed. (6) DVT prophylaxis Current Visit: Yes Status: Acute Assessment and plan: Heparin subcutaneous twice daily. Up to chair twice a day. Patient has been ambulatory in the room. - Subjective Interval history: Seen and examined at bedside, - Constitutional Vitals: Temp Pulse Resp BP Pulse Ox 98.0 F 63 18 122/62 92 09/04/17 15:27 09/04/17 15:27 09/04/17 15:27 09/04/17 15:27 09/04/17 15:27 General appearance: Present: cooperative, A&O X 3, pleasant, no acute distress, obese, answers questions appropriately - Head Head exam: Present: atraumatic, normocephalic - Eye Eye exam: Present: PERRL, conjuntiva pink, sclera anicteric Pupils: Present: PERRL - Neck Neck exam general surgery: Present: supple, trachea midline. Absent: lymphadenopathy - Respiratory Respiratory exam: Present: CTAB. Absent: accessory muscle use, rales, rhonchi, wheezes - Cardiovascular Cardiovascular exam: Present: RRR, +S1, +S2. Absent: diastolic murmur, gallop, rubs, systolic murmur - GI/Abdominal GI/Abdominal exam: Present: normal bowel sounds, soft, no peritoneal signs. Absent: distended, tenderness - Extremities Exam Extremities exam: Present: warm, radial pulses palpable and symmetrical. Absent : calf tenderness, cyanotic, pedal edema - Neurological Exam Neurological exam: Present: CN II-XII intact, oriented X3, no focal deficits. Absent: pronater drift, facial droop, speech deficit - Skin Skin exam: Present: dry, intact Internal Medicine: Result - Labs CBC & Chem 7: 09/04/17 09:40 09/04/17 09:39 Labs: Short CBC 09/04/17 Range/Units 09:40 WBC 14.6 H D (4.3-11.1) K/mcL Hgb 11.4 L D (11.5-15.4) g/dL Hct 37.3 (35.3-44.9) % Plt Count 209 (140-400) K/mcL Neutrophils # 11.7 H (1.6-8.9) K/mcL BMP 09/04/17 09:39 Sodium 142 Potassium 3.1 L Chloride 109 H Carbon Dioxide 23 BUN 58 H Creatinine 2.03 H Glucose 135 H Calcium 8.5 L Consult Discharge Plan - Plan Referrals: Magnus Donaldson DO [Partnered Physician] - 09/11/17 10:50 am (hospital follow-up ; discuss colonoscopy (patient has never had one), guiac positive stool) Eduardo Hernandez Jr, MD [Primary Care Provider] - 09/07/17 11:00 am
[2017-09-04] MEDS: Acetaminophen 325 MG TABLET PO PRN (23:05)
[2017-09-05] MEDS: Hydrocortisone Sodium Succ 100 MG/2 ML VIAL IVP SCH ×4 (00:09→22:57)
[2017-09-05 05:46] LABS: Basophils % 0.4 %; Eosinophils % 0.2 %; Hematocrit 33.6 % (35.3-44.9); Hemoglobin 10.2 g/dL (11.5-15.4); Immature Granulocytes % 6.8 % (0-4); Lymphocytes # 1.2 K/mcL (0.6-4.6); Lymphocytes % 12.1 %; Mean Corpuscular HGB Conc 30.4 g/dL (31.6-35.5); Mean Corpuscular Hemoglobin 25.8 pg (28.0-33.3); Mean Corpuscular Volume 85.1 fL (83.0-100.0); Mean Platelet Volume 10.3 fL (9.4-12.4); Monocytes # 0.5 K/mcL (0.0-1.3); Monocytes % 5.4 %; Neutrophils # 7.3 K/mcL (1.6-8.9); Platelet Count 163 K/mcL (140-400); Red Blood Count 3.95 M/mcL (3.82-4.97); Red Cell Distribution Width 18.9 % (11.5-14.5); Segmented Neutrophils % 75.1 %
[2017-09-05 06:08] LABS: Albumin 3.1 g/dL (3.5-5.7); Albumin/Globulin Ratio 1.3 (1.1-2.2); Bilirubin,Total 0.3 mg/dL (0.3-1.0); Calcium 8.4 mg/dL (8.6-10.3); Globulin 2.4 g/dL (2.4-3.5); Potassium 3.5 mEq/L (3.5-5.1); Total Protein 5.5 g/dL (6.4-8.9)
[2017-09-05 06:18] LABS: Anisocytosis 1+ (Not Present); Platelet Estimate Normal (Normal); Poikilocytosis 1+ (Not Present); Schistocytes 1+ (Not Present)
[2017-09-05 06:19] LABS: Ovalocytes 1+ (Not Present)
[2017-09-05] MEDS: *HR* Heparin 5,000 UNIT/ML VIAL SQ SCH ×2 (06:26→17:18)
[2017-09-05] MEDS: Budesonide/Formoterol 160/4.5 MDI IH SCH ×2 (08:03→19:47)
[2017-09-05] MEDS: Tiotropium 18 MCG inhalation IH SCH (08:03)
[2017-09-05] MEDS: Insulin LISPRO 300 UNITS/3 ML VIAL SQ SCH ×4 (08:12→21:20)
[2017-09-05] MEDS: Bumetanide 1 MG TABLET PO SCH (08:13)
[2017-09-05] MEDS: Ascorbic Acid 500 MG TABLET PO SCH (08:14)
[2017-09-05] MEDS: Diltiazem CD (24hr) 180 MG CAPSULE PO SCH (08:14)
[2017-09-05] MEDS: hydrALAZINE 25 MG TABLET PO SCH ×4 (08:14→21:19)
[2017-09-05] MEDS: Cholecalciferol (D-3) 1,000 UNIT TABLET PO SCH (08:14)
[2017-09-05] MEDS: Vitamin B Complex/Vit C/Vit E 1 EACH TABLET PO SCH (08:14)
[2017-09-05] MEDS: Lactobacillus 1 EACH CAP.SPRINK PO SCH ×2 (08:14→21:19)
[2017-09-05] MEDS: Multivit/Ca/Min/Fe/FA 1 TAB TABLET PO SCH (08:15)
[2017-09-05] MEDS: Celecoxib 100 MG CAPSULE PO SCH (08:15)
[2017-09-05] MEDS: Linezolid 600 MG TABLET PO SCH ×2 (08:15→21:19)
[2017-09-05] MEDS: Fluticasone Propionate Nasal 50 MCG/SPRAY BOTTLE NS SCH (08:16)
[2017-09-05] MEDS: Nystatin POWDER 30 GM BOTTLE TP SCH ×2 (08:16→21:20)
--- NOTE | 2017-09-05 10:42 | Internal Med Progress Note ---
Date of Encounter: 09/05/17 Time of Encounter: 09:30 - Assessment and plan (1) Acute on chronic congestive heart failure Current Visit: No Status: Acute Assessment and plan: known hx diastolic dysfunction. On the Bumex at home. 08/31/17 TTE with EF 55%. Clinically appears overloaded on exam with crackles. Holding home bumex. Give one-time dose IV Lasix. Strict I and O's, daily weights. Qualifiers: Congestive heart failure type: diastolic Qualified Code(s): I50.33 - Acute on chronic diastolic (congestive) heart failure (2) Healthcare associated bacterial pneumonia Current Visit: Yes Status: Acute Assessment and plan: Chest CTA with increasing salivation within bilateral lower lobes and right middle lobe concerning for pneumonia. At risk for MRSA and Pseudomonas with multiple hospitalizations, recent prior antibiotic use and chronic steroid use. We did seven-day course of Zyvox which will cover for MRSA. History of Pseudomonas pneumonia; continue Zosyn for now. Repeat sputum culture. (3) Diarrhea Current Visit: Yes Status: Acute Assessment and plan: Presented with stools for 1 week. Patient reports being on multiple rounds of ATB outpatient due to recurrent pneumonia. Stool studies negative. PRN loperamide. Qualifiers: Diarrhea type: unspecified type Qualified Code(s): R19.7 - Diarrhea, unspecified (4) Hypokalemia Current Visit: No Status: Acute Assessment and plan: in the setting of excessive GI losses with loose stool. Monitor daily K and replace as needed. K 3.5 on 09/05 (5) Acute on chronic renal failure Current Visit: Yes Status: Chronic Assessment and plan: Cr peaked at 4.15; likely due to excessive GI losses with persistent loose stools. Renal US unremarkable. Avoid nephrotoxins if possible. Cont strict I/ Os. Renal function slowly improving. Holding ANMOL with IV lasix to avoid worsening renal function. Nephrology following. Qualifiers: Acute renal failure type: unspecified Chronic kidney disease stage: stage 3 (moderate) Qualified Code(s): N17.9 - Acute kidney failure, unspecified; N18.3 - Chronic kidney disease, stage 3 (moderate); N18.3 - Chronic kidney disease, stage 3 (moderate) (6) Anemia Current Visit: Yes Status: Acute Assessment and plan: anemia of chronic disease. Hgb stable. Intermittently monitor. Qualifiers: Qualified Code(s): D64.9 - Anemia, unspecified (7) Partial small bowel obstruction Current Visit: Yes Status: Resolved Assessment and plan: presented with left sided abdominal tenderness, abdominal bloating, nausea/ vomiting, poor appetite for 1 week. Abdominal/pelvis CT concerning for partial small bowel obstruction. Initially managed with nothing by mouth and NG. Diet was slowly advanced. Patient now tolerating regular diet and having loose stool. Now resolved. Gen. surgery followed. (8) Chronic steroid use Current Visit: Yes Status: Chronic Assessment and plan: Due to COPD (on 10mg prednisone every other day at home). Stress dose steroids started upon admission. Start tapering IV steroids on 09/05. (9) DVT prophylaxis Current Visit: Yes Status: Acute Assessment and plan: Heparin subcutaneous twice daily. Up to chair twice a day. Patient has been ambulatory in the room. - Subjective Interval history: Seen and examined at bedside; patient says she feels about the same from yesterday. She reports 2 loose stools this morning. Has some shortness of breath and orthopnea. No chest pain. No abdominal pain, nausea or vomiting - Constitutional Vitals: Temp Pulse Resp BP Pulse Ox 98.0 F 65 16 174/66 90 09/05/17 07:00 09/05/17 07:00 09/05/17 08:07 09/05/17 07:00 09/05/17 08:07 General appearance: Present: cooperative, A&O X 3, pleasant, no acute distress, obese, answers questions appropriately - Head Head exam: Present: atraumatic, normocephalic - Eye Eye exam: Present: PERRL, conjuntiva pink, sclera anicteric Pupils: Present: PERRL - Neck Neck exam general surgery: Present: supple, trachea midline. Absent: lymphadenopathy - Respiratory Respiratory exam: Present: rhonchi. Absent: accessory muscle use, rales, wheezes - Cardiovascular Cardiovascular exam: Present: RRR, +S1, +S2. Absent: diastolic murmur, gallop, rubs, systolic murmur - GI/Abdominal GI/Abdominal exam: Present: normal bowel sounds, soft, no peritoneal signs. Absent: distended, tenderness - Extremities Exam Extremities exam: Present: warm, radial pulses palpable and symmetrical. Absent : calf tenderness, cyanotic, pedal edema - Neurological Exam Neurological exam: Present: CN II-XII intact, oriented X3, no focal deficits. Absent: pronater drift, facial droop, speech deficit - Skin Skin exam: Present: dry, intact Internal Medicine: Result - Labs CBC & Chem 7: 09/05/17 05:31 09/05/17 05:31 Labs: Short CBC 09/04/17 09/05/17 Range/Units 09:40 05:31 WBC 9.7 (4.3-11.1) K/mcL Hgb 10.2 L (11.5-15.4) g/dL Hct 33.6 L (35.3-44.9) % Plt Count 163 (140-400) K/mcL Neutrophils # 11.7 H 7.3 (1.6-8.9) K/mcL BMP 09/05/17 05:31 Sodium 143 Potassium 3.5 Chloride 111 H Carbon Dioxide 25 BUN 57 H Creatinine 2.01 H Glucose 141 H Calcium 8.4 L Liver Function 09/05/17 Range/Units 05:31 Total Bilirubin 0.3 (0.3-1.0) mg/dL AST 12 L (13-39) Units/L ALT 14 (7-52) Units/L Alkaline Phosphatase 50 (34-104) Units/L Albumin 3.1 L (3.5-5.7) g/dL Consult Discharge Plan - Plan Referrals: Magnus Donaldson DO [Partnered Physician] - 09/11/17 10:50 am (hospital follow-up ; discuss colonoscopy (patient has never had one), guiac positive stool) Eduardo Hernandez Jr, MD [Primary Care Provider] - 09/07/17 11:00 am
[2017-09-05] MEDS ORDERED: Furosemide 40 MG/4 ML VIAL IVP ONE (11:41)
--- NOTE | 2017-09-05 16:19 | Nephrology Progress Note ---
Date of Encounter: 09/05/17 Time of Encounter: 16:17 - Assessment and Plan (1) Acute kidney injury Current Visit: Yes Status: Acute Renal function improving. Creatinine from 3.32 to 2.65 to 2.77 to 2.45. Continue with current plan. Tolerating diuresis. Avoid nephrotoxins. (2) CKD (chronic kidney disease) stage 3, GFR 30-59 ml/min Current Visit: Yes Status: Acute MARISSA on CKD hopeful for recovery. (3) Hypokalemia Current Visit: No Status: Acute Replace potassium as needed. Magnesium replaced. (4) Hypocalcemia Current Visit: Yes Status: Acute Follow calcium level. PTH normal and vitamin D normal, but on the low side. Started ergocalciferol. Give IV calcium as needed. (5) Anemia Current Visit: Yes Status: Acute Monitor hemoglobin. Iron stores, vitamin B12 and folate are all normal. Qualifiers: Qualified Code(s): D64.9 - Anemia, unspecified Subjective Principal diagnosis: MARISSA Interval history: Patient seen. she feels better. No new complaints. Objective - Vital Signs Vital signs: Vital Signs Temp Pulse Resp BP Pulse Ox 09/05/17 16:11 97.7 F 60 18 174/65 95 09/05/17 10:57 97.6 F 66 16 159/63 95 09/05/17 08:07 16 90 09/05/17 07:00 98.0 F 65 18 174/66 92 09/05/17 03:29 97.8 F 61 15 141/55 95 09/04/17 23:20 97.8 F 59 17 148/50 91 09/04/17 21:14 18 93 09/04/17 19:42 98.1 F 62 17 154/64 92 Intake and Output 09/05/17 09/05/17 09/05/17 07:59 15:59 23:59 Intake Total 550 / 550 360 / 360 Balance 550 / 550 360 / 360 Intake: IV Fluids 100 / 100 Zosyn 3.375 GM In 0.9 % Sodium 100 / 100 Chloride 100 ML @ 25 mls/hr IVPB Q12H [facility] Rx#:[id number] Oral 450 / 450 360 / 360 Other: Meal Lunch Percent of Meal Consumed 75% Stool Size Moderate Stool Consistency loose Stool Color Brown # Voids 2 # Bowel Movements 1 Weight 107.409 kg Blood Glucose* 121 162 Patient Weight 09/05/17 23:59 Weight 107.409 kg - General Appearance General appearance: Present: well-developed, well-nourished, obese EENT: Present: ATNC Respiratory: Present: course breath sounds, rhonchi Cardiology: Present: regular rate Neurologic: Present: alert and oriented x3 Psychiatric: Present: mood/affect appropriate - Lab 09/05/17 05:31 09/06/17 03:51 Most recent lab results Calcium 8.4 mg/dL (8.6-10.3) L 09/05/17 05:31 Magnesium 1.8 mg/dL (1.6-2.6) 09/04/17 09:39 Urine Creatinine 164 mg/dL 08/28/17 17:32 Urine Sodium 35.7 mEq/L 08/28/17 17:32 Urine Total Protein 36 mg/dL 08/28/17 17:32 Consult Discharge Plan - Plan Referrals: Magnus Donaldson DO [Partnered Physician] - 09/11/17 10:50 am (hospital follow-up ; discuss colonoscopy (patient has never had one), guiac positive stool) Eduardo Hernandez Jr, MD [Primary Care Provider] - 09/07/17 11:00 am
[2017-09-05] MEDS: Acetaminophen 325 MG TABLET PO PRN (22:52)
[2017-09-06 04:55] LABS: Calcium 8.1 mg/dL (8.6-10.3); Potassium 3.5 mEq/L (3.5-5.1)
[2017-09-06] MEDS: *HR* Heparin 5,000 UNIT/ML VIAL SQ SCH ×2 (06:00→18:40)
[2017-09-06] MEDS: Insulin LISPRO 300 UNITS/3 ML VIAL SQ SCH ×4 (07:38→21:53)
[2017-09-06] MEDS: Hydrocortisone Sodium Succ 100 MG/2 ML VIAL IVP SCH (07:51)
[2017-09-06] MEDS: hydrALAZINE 25 MG TABLET PO SCH ×4 (07:51→21:56)
[2017-09-06] MEDS: Linezolid 600 MG TABLET PO SCH (07:52)
[2017-09-06] MEDS: Multivit/Ca/Min/Fe/FA 1 TAB TABLET PO SCH (07:52)
[2017-09-06] MEDS: Diltiazem CD (24hr) 180 MG CAPSULE PO SCH (07:52)
[2017-09-06] MEDS: Ascorbic Acid 500 MG TABLET PO SCH (07:53)
[2017-09-06] MEDS: Lactobacillus 1 EACH CAP.SPRINK PO SCH ×2 (07:53→21:55)
[2017-09-06] MEDS: Cholecalciferol (D-3) 1,000 UNIT TABLET PO SCH (07:53)
[2017-09-06] MEDS: Nystatin POWDER 30 GM BOTTLE TP SCH ×2 (07:54→21:56)
[2017-09-06] MEDS: Vitamin B Complex/Vit C/Vit E 1 EACH TABLET PO SCH (07:56)
[2017-09-06] MEDS: Fluticasone Propionate Nasal 50 MCG/SPRAY BOTTLE NS SCH (07:56)
[2017-09-06] MEDS: Tiotropium 18 MCG inhalation IH SCH (11:00)
[2017-09-06] MEDS: Budesonide/Formoterol 160/4.5 MDI IH SCH ×2 (11:08→23:05)
--- NOTE | 2017-09-06 11:17 | Nephrology Progress Note ---
Date of Encounter: 09/06/17 Time of Encounter: 11:15 - Assessment and Plan (1) Acute kidney injury Current Visit: Yes Status: Acute Renal function improving Scr 1.95, GFR 25 Once discharged BMP in 1 week and f/u in office with Dr Thrasher in 2 weeks Avoid nephrotoxins if possible Continue strict I/Os (2) Hypokalemia Current Visit: No Status: Resolved Continue the po supplements (3) Hypomagnesemia Current Visit: No Status: Resolved Mg 1.3 4 gm Mg rider IVPB over 4 hours Subjective Principal diagnosis: MARISSA Interval history: Patient seen and examined. Doing well today, very talkative Objective - Vital Signs Vital signs: Vital Signs Temp Pulse Resp BP Pulse Ox 09/06/17 11:09 18 92 09/06/17 10:28 97.7 F 99 18 144/49 92 09/06/17 06:49 97.7 F 66 18 137/61 93 09/06/17 00:23 98.0 F 58 16 126/53 89 09/05/17 21:00 94 09/05/17 19:56 97.6 F 62 18 153/61 94 09/05/17 19:48 17 94 09/05/17 16:11 97.7 F 60 18 174/65 95 Intake and Output 09/05/17 09/06/17 09/06/17 23:59 07:59 15:59 Intake Total 100 / 100 360 / 360 Output Total 350 / 350 Balance 100 / 100 -350 / -350 360 / 360 Intake: IV Fluids 100 / 100 Zosyn 3.375 GM In 0.9 % Sodium 100 / 100 Chloride 100 ML @ 25 mls/hr IVPB Q12H ON LICENSE OF [facility] Rx#:[id number] Oral 360 / 360 Output: Urine 350 / 350 Other: Meal Breakfast Percent of Meal Consumed 100% # Voids 1 1 Weight 108.953 kg Blood Glucose* 216 97 Patient Weight 09/06/17 23:59 Weight 108.953 kg - General Appearance General appearance: Present: well-developed, well-nourished, obese EENT: Present: ATNC, mucous membranes moist, hearing intact, vision intact Neck: Present: supple Respiratory: Present: clear Cardiology: Present: no edema, normal S1, normal S2 Gastrointestinal: Present: no tenderness, no guarding Integumentary: Present: warm and dry Neurologic: Present: alert and oriented x3 Psychiatric: Present: mood/affect appropriate, cooperative - Lab 09/05/17 05:31 09/06/17 03:51 Most recent lab results Calcium 8.1 mg/dL (8.6-10.3) L 09/06/17 03:51 Magnesium 1.3 mg/dL (1.6-2.6) L 09/06/17 03:51 Urine Creatinine 164 mg/dL 08/28/17 17:32 Urine Sodium 35.7 mEq/L 08/28/17 17:32 Urine Total Protein 36 mg/dL 08/28/17 17:32 Consult Discharge Plan - Plan Referrals: Magnus Donaldson DO [Partnered Physician] - 09/11/17 10:50 am (hospital follow-up ; discuss colonoscopy (patient has never had one), guiac positive stool) Eduardo Hernandez Jr, MD [Primary Care Provider] - 09/07/17 11:00 am
--- NOTE | 2017-09-06 16:59 | Internal Med Progress Note ---
Date of Encounter: 09/06/17 Time of Encounter: 15:00 - Assessment and plan (1) Acute on chronic congestive heart failure Current Visit: No Status: Acute Assessment and plan: known hx diastolic dysfunction. On the Bumex at home. 08/31/17 TTE with EF 55%. Clinically appears overloaded on exam with crackles. Cont pulse lasix. Give one- time dose IV Lasix. Strict I and O's, daily weights. Qualifiers: Congestive heart failure type: diastolic Qualified Code(s): I50.33 - Acute on chronic diastolic (congestive) heart failure (2) Healthcare associated bacterial pneumonia Current Visit: Yes Status: Acute Assessment and plan: suspected; chest CTA with increasing consolidation within bilateral lower lobes and right middle lobe concerning for pneumonia. Concern for MRSA and Pseudomonas with multiple hospitalizations, recent prior antibiotic use and chronic steroid use. Repleted seven-day course of Zyvox which treated for MRSA. History of Pseudomonas pneumonia; continue Zosyn for now. Repeat sputum culture. (3) Diarrhea Current Visit: Yes Status: Acute Assessment and plan: Presented with stools for 1 week. Patient reports being on multiple rounds of ATB outpatient due to recurrent pneumonia. Stool studies negative. PRN loperamide. Patient can use to complain of loose stool immediately after eating with associated abdominal cramps. Consult GI for further recommendations Qualifiers: Diarrhea type: unspecified type Qualified Code(s): R19.7 - Diarrhea, unspecified (4) Hypokalemia Current Visit: No Status: Resolved Assessment and plan: in the setting of excessive GI losses with loose stool. Monitor daily K and replace as needed. K 3.5 on 09/05 (5) Acute on chronic renal failure Current Visit: Yes Status: Chronic Assessment and plan: Cr peaked at 4.15; likely due to excessive GI losses with persistent loose stools. Renal US unremarkable. Avoid nephrotoxins if possible. Cont strict I/ Os. Renal function slowly improving. Holding ANMOL with IV lasix to avoid worsening renal function. Nephrology following. Qualifiers: Acute renal failure type: unspecified Chronic kidney disease stage: stage 3 (moderate) Qualified Code(s): N17.9 - Acute kidney failure, unspecified; N18.3 - Chronic kidney disease, stage 3 (moderate); N18.3 - Chronic kidney disease, stage 3 (moderate) (6) Anemia Current Visit: Yes Status: Acute Assessment and plan: anemia of chronic disease. Hgb stable. Intermittently monitor. Qualifiers: Qualified Code(s): D64.9 - Anemia, unspecified (7) Partial small bowel obstruction Current Visit: Yes Status: Resolved Assessment and plan: presented with left sided abdominal tenderness, abdominal bloating, nausea/ vomiting, poor appetite for 1 week. Abdominal/pelvis CT concerning for partial small bowel obstruction. Initially managed with nothing by mouth and NG. Diet was slowly advanced. Patient now tolerating regular diet and having loose stool. Now resolved. Gen. surgery followed. (8) Chronic steroid use Current Visit: Yes Status: Chronic Assessment and plan: Due to COPD (on 10mg prednisone every other day at home). Stress dose steroids started upon admission. IV steroids tapered 09/06. Resume home steroid dose. (9) DVT prophylaxis Current Visit: Yes Status: Acute Assessment and plan: Heparin subcutaneous twice daily. Up to chair twice a day. Patient has been ambulatory in the room. - Subjective Interval history: Seen and examined at bedside; patient says she feels a little better today. Breathing is better, but she still having persistent loose stool. She does report some associated abdominal cramping. No chest pain - Constitutional Vitals: Temp Pulse Resp BP Pulse Ox 98.1 F 62 16 144/54 94 09/06/17 15:11 09/06/17 15:11 09/06/17 15:11 09/06/17 15:11 09/06/17 15:11 General appearance: Present: cooperative, A&O X 3, pleasant, no acute distress, obese, answers questions appropriately - Head Head exam: Present: atraumatic, normocephalic - Eye Eye exam: Present: PERRL, conjuntiva pink, sclera anicteric Pupils: Present: PERRL - Neck Neck exam general surgery: Present: supple, trachea midline. Absent: lymphadenopathy - Respiratory Respiratory exam: Present: CTAB. Absent: accessory muscle use, rales, rhonchi, wheezes - Cardiovascular Cardiovascular exam: Present: RRR, +S1, +S2. Absent: diastolic murmur, gallop, rubs, systolic murmur - GI/Abdominal GI/Abdominal exam: Present: normal bowel sounds, soft, no peritoneal signs. Absent: distended, tenderness - Extremities Exam Extremities exam: Present: warm, radial pulses palpable and symmetrical. Absent : calf tenderness, cyanotic, pedal edema - Neurological Exam Neurological exam: Present: CN II-XII intact, oriented X3, no focal deficits. Absent: pronater drift, facial droop, speech deficit - Skin Skin exam: Present: dry, intact Internal Medicine: Result - Labs CBC & Chem 7: 09/05/17 05:31 09/06/17 03:51 Labs: BMP 09/06/17 03:51 Sodium 144 Potassium 3.5 Chloride 112 H Carbon Dioxide 24 BUN 51 H Creatinine 1.95 H Glucose 136 H Calcium 8.1 L Consult Discharge Plan - Plan Referrals: Magnus Donaldson DO [Partnered Physician] - 09/11/17 10:50 am (hospital follow-up ; discuss colonoscopy (patient has never had one), guiac positive stool) Eduardo Hernandez Jr, MD [Primary Care Provider] - 09/07/17 11:00 am
[2017-09-06] MEDS ORDERED: Furosemide 40 MG/4 ML VIAL IVP ONE (17:00)
[2017-09-06] MEDS: Acetaminophen 325 MG TABLET PO PRN (22:09)
[2017-09-07 04:52] LABS: Hematocrit 31.1 % (35.3-44.9); Hemoglobin 9.5 g/dL (11.5-15.4); Mean Corpuscular HGB Conc 30.5 g/dL (31.6-35.5); Mean Platelet Volume 10.2 fL (9.4-12.4); Platelet Count 156 K/mcL (140-400); Red Blood Count 3.66 M/mcL (3.82-4.97); Red Cell Distribution Width 19.4 % (11.5-14.5)
[2017-09-07] MEDS: *HR* Heparin 5,000 UNIT/ML VIAL SQ SCH ×2 (05:29→18:19)
[2017-09-07 05:42] LABS: Calcium 8.2 mg/dL (8.6-10.3); Magnesium 1.7 mg/dL (1.6-2.6); Potassium 3.8 mEq/L (3.5-5.1)
[2017-09-07] MEDS: Insulin LISPRO 300 UNITS/3 ML VIAL SQ SCH ×4 (08:00→21:52)
[2017-09-07] MEDS: Diltiazem CD (24hr) 180 MG CAPSULE PO SCH (08:16)
[2017-09-07] MEDS: Multivit/Ca/Min/Fe/FA 1 TAB TABLET PO SCH (08:16)
[2017-09-07] MEDS: Ascorbic Acid 500 MG TABLET PO SCH (08:16)
[2017-09-07] MEDS: Lactobacillus 1 EACH CAP.SPRINK PO SCH ×2 (08:16→21:47)
[2017-09-07] MEDS: predniSONE 10 MG TABLET PO SCH (08:16)
[2017-09-07] MEDS: Vitamin B Complex/Vit C/Vit E 1 EACH TABLET PO SCH (08:16)
[2017-09-07] MEDS: Cholecalciferol (D-3) 1,000 UNIT TABLET PO SCH (08:16)
[2017-09-07] MEDS: hydrALAZINE 25 MG TABLET PO SCH ×4 (08:16→21:48)
[2017-09-07] MEDS: Nystatin POWDER 30 GM BOTTLE TP SCH ×2 (08:22→21:45)
[2017-09-07] MEDS: Fluticasone Propionate Nasal 50 MCG/SPRAY BOTTLE NS SCH (08:22)
[2017-09-07] MEDS: Budesonide/Formoterol 160/4.5 MDI IH SCH ×2 (10:07→20:02)
[2017-09-07] MEDS: Tiotropium 18 MCG inhalation IH SCH (10:08)
--- NOTE | 2017-09-07 10:32 | Nephrology Progress Note ---
Date of Encounter: 09/07/17 Time of Encounter: 09:50 - Assessment and Plan (1) Acute worsening of stage 3 chronic kidney disease Current Visit: No Status: Acute Nonoliguric MARISSA and trending better in the face of diuretics. Would continue diuretics and recommend ongoing strict I/Os, daily weights and low Na diet. 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 Will follow with you. Thank you. (2) Right renal atrophy Current Visit: Yes Status: Acute See above. Suspect this is not acute, but chronic since the left kidney has had time to hypertrophy (13+cm in longest dimension). May need renal doppler at some point to screen for CONI. (3) CKD (chronic kidney disease) stage 3, GFR 30-59 ml/min Current Visit: No Status: Chronic See above (4) Hypertension Current Visit: No Status: Chronic Qualifiers: Hypertension type: essential hypertension Qualified Code(s): I10 - Essential (primary) hypertension (5) Hypomagnesemia Current Visit: No Status: Resolved S/p repletion Subjective Principal diagnosis: MARISSA Interval history: Pt was seen/examined earlier today. She did not affirm N/V but did report diarrhea x2. She voiced that her LE swelling is about the same, she thought. I reviewed the sign-out from my colleague. Objective - Vital Signs Vital signs: Vital Signs Temp Pulse Resp BP Pulse Ox 09/07/17 10:19 97.8 F 62 15 141/57 94 09/07/17 10:18 16 97 09/07/17 07:01 97.8 F 74 18 164/55 91 09/07/17 02:33 97.7 F 59 16 151/78 93 09/06/17 22:50 97.5 F L 86 18 160/69 94 09/06/17 18:43 59 14 118/74 96 09/06/17 18:38 97.5 F L 68 18 159/67 98 09/06/17 15:11 98.1 F 62 16 144/54 94 09/06/17 11:09 18 92 Intake and Output 09/06/17 09/07/17 09/07/17 23:59 07:59 15:59 Intake Total 450 / 450 100 / 100 120 / 120 Output Total 850 / 850 Balance -400 / -400 100 / 100 120 / 120 Intake: IV Fluids 100 / 100 100 / 100 Zosyn 3.375 GM In 0.9 % Sodium 100 / 100 100 / 100 Chloride 100 ML @ 25 mls/hr IVPB Q12H [facility] Rx#:[id number] Oral 120 / 120 Free Water 350 / 350 Output: Urine 850 / 850 Other: Meal Breakfast Percent of Meal Consumed 50% # Voids 1 1 # Bowel Movements 1 Weight 110.949 kg Blood Glucose* 147 92 Patient Weight 09/07/17 23:59 Weight 110.949 kg - General Appearance General appearance: Present: well-developed, well-nourished, appears started age , obese EENT: Present: ATNC, PERRL, mucous membranes moist Neck: Present: supple Respiratory: Present: rhonchi Cardiology: Present: edema (1+ pretibial pitting LE edema bilaterally), regular rate, regular rhythm Gastrointestinal: Present: normoactive bowel sounds, no tenderness, no guarding Integumentary: Present: warm and dry Neurologic: Present: no focal deficit, no asterixis, alert and oriented x3 Musculoskeletal: Present: no cyanosis, no clubbing Psychiatric: Present: mood/affect appropriate, cooperative - Lab 09/07/17 04:04 09/07/17 04:04 Most recent lab results Calcium 8.2 mg/dL (8.6-10.3) L 09/07/17 04:04 Phosphorus 3.0 mg/dL (2.7-4.5) 09/07/17 04:04 Magnesium 1.7 mg/dL (1.6-2.6) 09/07/17 04:04 Urine Creatinine 164 mg/dL 08/28/17 17:32 Urine Sodium 35.7 mEq/L 08/28/17 17:32 Urine Total Protein 36 mg/dL 08/28/17 17:32 Consult Discharge Plan - Plan Referrals: Magnus Donaldson DO [Partnered Physician] - 09/11/17 10:50 am (hospital follow-up ; discuss colonoscopy (patient has never had one), guiac positive stool) Eduardo Hernandez Jr, MD [Primary Care Provider] - 09/07/17 11:00 am
--- NOTE | 2017-09-07 17:17 | Gastroenterology Consult Note ---
<Rosalie Stewart M - Last Filed: 09/07/17 17:14> Date of Encounter: 09/07/17 Time of Encounter: 10:30 - Assessment and plan (1) Diarrhea Current Visit: Yes Status: Acute Assessment and plan: Pt presented with partial SBO, which has resolved. She has continued diarrhea. KUB today was normal. She may have functional diarrhea vs antibiotic induced diarrhea. C-diff was negative. Will order stool O&P. Continue immodium and probiotics, may need questran if unresolved. Qualifiers: Diarrhea type: unspecified type Qualified Code(s): R19.7 - Diarrhea, unspecified - Time Spent With Patient Total time spent is greater than 50% in coordination of care (as documented) at patient's floor/unit and/or counseling patient: GI History of Present Illness - Data of Consult Patient: new to practice Consult date: 09/07/17 Requesting Physician: Nelly Lucio CNP - Consult Narrative Reason for consult: diarrhea History of present illness: Ms. Pollack is a 71 year old female with history of CHF, COPD, diabetes, history of appendix surgery. She presented to ER on 08/27/17 with nausea and vomiting since last , left sided abdominal pain, and fever. In emergency room, CT abd shows partial small bowel obstruction. She was seen by Gen Surgery, she had NGT which has since been removed. Nausea, vomiting and abdominal pain have resolved but she has continued diarrhea. She has been treated for hospital acquired pneumonia with vanco, zyvox, and is currently on zosyn. She states diarrhea is 5-6 times a day, green to brown in color and very wattery. She denies any bloody or tarry stools. Gi panel including C. dif was negative. She denies any abdominal pain or cramping at this time. She denies nausea or vomiting. She denies GERD. Colonoscopy: denies and refuses EGD: 2017@ [facility] reports bleeding ulcer NSAIDS/ASA: none Anticoagulants: heparin Past Med Surg Social Fam HX - Past Medical History Medical history: arthritis, atrial fibrillation, CHF, COPD, DVT, diabetes, hyperlipidemia, hypertension, pulmonary embolus, renal disease Psychiatric history: anxiety, depression - Past Surgical History Surgical History: appendectomy, - Social History Smoking Status: Former smoker Smokeless Tobacco Status: No Alcohol use: none Drug use: none - Family History Mother Family Member Ethnicity: Non- Living Status: Cause of : lung cancer Hx Family Cardiac Disorders: Yes (htn) Hx Family Respiratory Disorders: Yes Hx Family Cancer: Yes (lung) Hx Family GI Disorders: No Hx Family Endocrine Disorder: No Hx Family Neuromuscular Disorders: No Hx Family Neurologic Disorders: No Hx Family HEENT Disorders: No Hx Family Autoimmune Disorders: No Father Family Member Ethnicity: Non- Living Status: Age at : 52 Cause of : leukemia Hx Family Cancer: Yes (leukemia) Brother Family Member Ethnicity: Non- Living Status: Hx Family Cancer: Yes (Lung) Sister Family Member Ethnicity: Non- Living Status: Still Living Hx Family Cancer: Yes (Lymphoma) Review of Systems: GI: as per BOIS FORTE GENERAL: denies fever, or chills EYES: denies yellow discoloration ENT: denies pain with swallowing or difficulty swallowing CARDIO: denies chest pain, palpitations RESP:Shortness of breath with exertion : denies change in color of urine NEURO:weakness HEME: Denies any bruising MS: chronic joint pain, DERM: denies rash or itching PSYCH: Denies history of anxiety or depression - Constitutional Vitals: Temp Pulse Resp BP Pulse Ox 98.1 F 66 16 169/64 92 09/07/17 15:42 09/07/17 15:42 09/07/17 15:42 09/07/17 15:42 09/07/17 15:42 Exam: CONSTITUTIONAL:~alert, no acute distress.~HEAD:~normocephalic.~EYES:~no jaundice.~NECK:~no obvious swelling.~HEART:~regular rate and rhythm, no murmurs. ~LUNGS:~bilateral good air entry, coarse breath sounds on the left.~ABDOMEN:~ obese, RLQ scar well healed, non distended, soft, non tender, no masses palpable , no organomegaly.~RECTAL EXAM:~Deferred.~EXTREMITIES:~no clubbing, or cyanosis , 1+ ble edema.~SKIN:~no stigmata of chronic liver disease.~NEUROLOGIC:~no obvious focal defect.~~~~ Results - Labs CBC & Chem 7: 09/07/17 04:04 09/07/17 04:04 Labs: Last Result Calcium 8.2 mg/dL (8.6-10.3) L 09/07/17 04:04 Iron 89 mcg/dL (50-170) 09/03/17 04:55 % Saturation 40 % (15-50) 09/03/17 04:55 Transferrin 158 mg/dL (203-362) L 09/03/17 04:55 Ferritin 144 ng/ml (10-120) H 09/03/17 04:55 Troponin I < 0.03 ng/mL (< 0.04) 08/27/17 22:32 Vitamin B12 588 pg/mL (250-1100) 09/03/17 04:55 Folate 25.0 ng/mL (3.0-16.0) H 09/03/17 04:55 Stool Occult Blood Positive (Negative) A 08/28/17 15:15 Entire Visit Hgb 9.5 g/dL (11.5-15.4) L 09/07/17 04:04 Hct 31.1 % (35.3-44.9) L 09/07/17 04:04 Ferritin 144 ng/ml (10-120) H 09/03/17 04:55 Total Bilirubin 0.3 mg/dL (0.3-1.0) 09/05/17 05:31 AST 12 Units/L (13-39) L 09/05/17 05:31 ALT 14 Units/L (7-52) 09/05/17 05:31 Lipase 21 Units/L (11-82) 08/27/17 22:32 Folate 25.0 ng/mL (3.0-16.0) H 09/03/17 04:55 - Impressions Impressions KUB X-Ray 09/07/17 11:05 IMPRESSION: Nonobstructive bowel gas pattern. D/ / Henry Velázquez MD / Henry Velázquez MD Interpreting Provider: Henry Velázquez MD Consult Discharge Plan - Plan Referrals: Magnus Donaldson DO [Partnered Physician] - 09/11/17 10:50 am (hospital follow-up ; discuss colonoscopy (patient has never had one), guiac positive stool) Eduardo Hernandez Jr, MD [Primary Care Provider] - 09/07/17 11:00 am <Eliseo Osman - Last Filed: 09/10/17 12:08> Date of Encounter: 08/31/17 - Time Spent With Patient Total time spent is greater than 50% in coordination of care (as documented) at patient's floor/unit and/or counseling patient: GI History of Present Illness - Data of Consult Requesting Physician: Nelly Lucio CNP - Consult Narrative History of present illness: Ms. Pollack is a 71 year old female - Constitutional Vitals: Temp Pulse Resp BP Pulse Ox 98.2 F 75 18 133/70 92 09/10/17 11:58 09/10/17 11:58 09/10/17 11:58 09/10/17 11:58 09/10/17 11:58 Results - Labs CBC & Chem 7: 09/10/17 04:27 09/10/17 04:27 Labs: Last Result Calcium 8.8 mg/dL (8.6-10.3) 09/10/17 04:27 Iron 89 mcg/dL (50-170) 09/03/17 04:55 % Saturation 40 % (15-50) 09/03/17 04:55 Transferrin 158 mg/dL (203-362) L 09/03/17 04:55 Ferritin 144 ng/ml (10-120) H 09/03/17 04:55 Troponin I < 0.03 ng/mL (< 0.04) 08/27/17 22:32 Vitamin B12 588 pg/mL (250-1100) 09/03/17 04:55 Folate 25.0 ng/mL (3.0-16.0) H 09/03/17 04:55 Stool Occult Blood Negative (Negative) 09/08/17 12:30 Entire Visit Hgb 9.6 g/dL (11.5-15.4) L 09/10/17 04:27 Hct 30.4 % (35.3-44.9) L 09/10/17 04:27 Ferritin 144 ng/ml (10-120) H 09/03/17 04:55 Total Bilirubin 0.3 mg/dL (0.3-1.0) 09/05/17 05:31 AST 12 Units/L (13-39) L 09/05/17 05:31 ALT 14 Units/L (7-52) 09/05/17 05:31 Lipase 21 Units/L (11-82) 08/27/17 22:32 Folate 25.0 ng/mL (3.0-16.0) H 09/03/17 04:55 - Attending Attestation ISHAAN reviewed and patient examined and interviewed. Suspect antibiotic related diarrhea. Agree with probiotics and Lomotil sparingly I have personally performed a face to face evaluation on this patient. I have reviewed and agree with the care plan. History and Exam by me shows:for now. S/ P SBO.
--- NOTE | 2017-09-07 19:29 | Internal Med Progress Note ---
Date of Encounter: 09/07/17 Time of Encounter: 13:30 - Assessment and plan (1) Diarrhea Current Visit: Yes Status: Acute Assessment and plan: Presented with stools for 1 week. Patient reports being on multiple rounds of ATB outpatient due to recurrent pneumonia. Stool studies negative. Cont to complain of loose stool immediately after eating with associated abdominal cramps. Evaluated by GI who noted functional diarrhea versus ATB induced diarrhea. Oral vancomycin started. Stool O&P pending. PRN loperamide Qualifiers: Diarrhea type: unspecified type Qualified Code(s): R19.7 - Diarrhea, unspecified (2) Acute on chronic congestive heart failure Current Visit: No Status: Acute Assessment and plan: known hx diastolic dysfunction. On the Bumex at home. 08/31/17 TTE with EF 55%. Clinically appears overloaded on exam with crackles. Cont pulse lasix. Give one- time dose IV Lasix. Strict I and O's, daily weights. Home diuretic resumed. Qualifiers: Qualified Code(s): I50.33 - Acute on chronic diastolic (congestive) heart failure (3) Healthcare associated bacterial pneumonia Current Visit: Yes Status: Acute Assessment and plan: suspected; chest CTA with increasing consolidation within bilateral lower lobes and right middle lobe concerning for pneumonia. Concern for MRSA and Pseudomonas with multiple hospitalizations, recent prior antibiotic use and chronic steroid use. Repleted seven-day course of Zyvox which treated for MRSA. History of Pseudomonas pneumonia; continue Zosyn for now. Repeat sputum culture. (4) Hypokalemia Current Visit: No Status: Resolved Assessment and plan: in the setting of excessive GI losses with loose stool. Monitor daily K and replace as needed. K 3.5 on 09/05 (5) Acute on chronic renal failure Current Visit: Yes Status: Chronic Qualifiers: Acute renal failure type: unspecified Chronic kidney disease stage: stage 3 (moderate) Qualified Code(s): N17.9 - Acute kidney failure, unspecified; N18.3 - Chronic kidney disease, stage 3 (moderate); N18.3 - Chronic kidney disease, stage 3 (moderate) (6) Anemia Current Visit: Yes Status: Acute Assessment and plan: anemia of chronic disease. Hgb stable. Intermittently monitor. Qualifiers: Qualified Code(s): D64.9 - Anemia, unspecified (7) Partial small bowel obstruction Current Visit: Yes Status: Resolved Assessment and plan: presented with left sided abdominal tenderness, abdominal bloating, nausea/ vomiting, poor appetite for 1 week. Abdominal/pelvis CT concerning for partial small bowel obstruction. Initially managed with nothing by mouth and NG. Diet was slowly advanced. Patient now tolerating regular diet and having loose stool. Now resolved. Gen. surgery followed. 09/07/17 repeat KUB unremarkable. (8) Chronic steroid use Current Visit: Yes Status: Chronic Assessment and plan: Due to COPD (on 10mg prednisone every other day at home). Stress dose steroids started upon admission. IV steroids tapered 09/06. Resume home steroid dose. (9) DVT prophylaxis Current Visit: Yes Status: Acute Assessment and plan: Heparin subcutaneous twice daily. Up to chair twice a day. Patient has been ambulatory in the room. - Subjective Interval history: Seen and examined at bedside; says she feels about the same. Still having loose stools after eating. Says she does not want to go home until stool frequency has decreased. No CP or SOB - Constitutional Vitals: Temp Pulse Resp BP Pulse Ox 97.6 F 66 16 154/71 95 09/07/17 19:05 09/07/17 19:05 09/07/17 19:05 09/07/17 19:05 09/07/17 19:05 General appearance: Present: cooperative, A&O X 3, pleasant, no acute distress, obese, answers questions appropriately - Head Head exam: Present: atraumatic, normocephalic - Eye Eye exam: Present: PERRL, conjuntiva pink, sclera anicteric Pupils: Present: PERRL - Neck Neck exam general surgery: Present: supple, trachea midline. Absent: lymphadenopathy - Respiratory Respiratory exam: Present: CTAB. Absent: accessory muscle use, rales, rhonchi, wheezes - Cardiovascular Cardiovascular exam: Present: RRR, +S1, +S2. Absent: diastolic murmur, gallop, rubs, systolic murmur - GI/Abdominal GI/Abdominal exam: Present: normal bowel sounds, soft, no peritoneal signs. Absent: distended, tenderness - Extremities Exam Extremities exam: Present: warm, radial pulses palpable and symmetrical. Absent : calf tenderness, cyanotic, pedal edema - Neurological Exam Neurological exam: Present: CN II-XII intact, oriented X3, no focal deficits. Absent: pronater drift, facial droop, speech deficit - Skin Skin exam: Present: dry, intact Internal Medicine: Result - Labs CBC & Chem 7: 09/07/17 04:04 09/07/17 04:04 Labs: Short CBC 09/07/17 Range/Units 04:04 WBC 8.6 (4.3-11.1) K/mcL Hgb 9.5 L (11.5-15.4) g/dL Hct 31.1 L (35.3-44.9) % Plt Count 156 (140-400) K/mcL BMP 09/07/17 04:04 Sodium 145 Potassium 3.8 Chloride 114 H Carbon Dioxide 25 BUN 43 H Creatinine 1.71 H Glucose 102 Calcium 8.2 L - Impressions Impressions KUB X-Ray 09/07/17 11:05 IMPRESSION: Nonobstructive bowel gas pattern. D/ / Henry Velázquez MD / Henry Velázquez MD Interpreting Provider: Henry Velázquez MD Consult Discharge Plan - Plan Referrals: Magnus Donaldson DO [Partnered Physician] - 09/11/17 10:50 am (hospital follow-up ; discuss colonoscopy (patient has never had one), guiac positive stool) Eduardo Hernandez Jr, MD [Primary Care Provider] - 09/07/17 11:00 am
[2017-09-07] MEDS: metroNIDAZOLE 250 MG TABLET PO SCH (21:47)
[2017-09-07] MEDS: Acetaminophen 325 MG TABLET PO PRN (21:49)
[2017-09-07] MEDS: Bumetanide 1 MG TABLET PO SCH (23:56)
[2017-09-08] MEDS: *HR* Heparin 5,000 UNIT/ML VIAL SQ SCH ×2 (05:05→18:40)
[2017-09-08 05:06] LABS: Basophils % 0.3 %; Eosinophils % 0.4 %; Hematocrit 30.2 % (35.3-44.9); Hemoglobin 9.2 g/dL (11.5-15.4); Immature Granulocytes % 1.5 % (0-4); Lymphocytes # 1.7 K/mcL (0.6-4.6); Lymphocytes % 22.8 %; Mean Corpuscular HGB Conc 30.5 g/dL (31.6-35.5); Mean Corpuscular Hemoglobin 26.1 pg (28.0-33.3); Mean Corpuscular Volume 85.6 fL (83.0-100.0); Mean Platelet Volume 10.4 fL (9.4-12.4); Monocytes # 0.5 K/mcL (0.0-1.3); Monocytes % 6.5 %; Platelet Count 137 K/mcL (140-400); Red Blood Count 3.53 M/mcL (3.82-4.97); Red Cell Distribution Width 19.4 % (11.5-14.5); Segmented Neutrophils % 68.5 %
[2017-09-08 05:23] LABS: Calcium 8.5 mg/dL (8.6-10.3); Magnesium 1.5 mg/dL (1.6-2.6); Phosphorous 3.4 mg/dL (2.7-4.5); Potassium 4.3 mEq/L (3.5-5.1)
[2017-09-08] MEDS: Budesonide/Formoterol 160/4.5 MDI IH SCH ×2 (08:00→19:59)
[2017-09-08] MEDS: Tiotropium 18 MCG inhalation IH SCH (08:02)
[2017-09-08] MEDS: metroNIDAZOLE 250 MG TABLET PO SCH ×3 (08:50→20:11)
[2017-09-08] MEDS: hydrALAZINE 25 MG TABLET PO SCH ×4 (08:50→20:11)
[2017-09-08] MEDS: Diltiazem CD (24hr) 180 MG CAPSULE PO SCH (08:50)
[2017-09-08] MEDS: Bumetanide 1 MG TABLET PO SCH ×2 (08:50→18:17)
[2017-09-08] MEDS: Cholecalciferol (D-3) 1,000 UNIT TABLET PO SCH (08:51)
[2017-09-08] MEDS: Multivit/Ca/Min/Fe/FA 1 TAB TABLET PO SCH (08:51)
[2017-09-08] MEDS: Vitamin B Complex/Vit C/Vit E 1 EACH TABLET PO SCH (08:51)
[2017-09-08] MEDS: Insulin LISPRO 300 UNITS/3 ML VIAL SQ SCH ×4 (08:51→20:11)
[2017-09-08] MEDS: predniSONE 10 MG TABLET PO SCH (08:51)
[2017-09-08] MEDS: Lactobacillus 1 EACH CAP.SPRINK PO SCH ×2 (08:51→20:11)
[2017-09-08] MEDS: Ascorbic Acid 500 MG TABLET PO SCH (08:51)
[2017-09-08] MEDS: Fluticasone Propionate Nasal 50 MCG/SPRAY BOTTLE NS SCH (08:52)
[2017-09-08] MEDS: Nystatin POWDER 30 GM BOTTLE TP SCH ×2 (08:55→20:12)
--- NOTE | 2017-09-08 10:27 | Nephrology Progress Note ---
Date of Encounter: 09/08/17 Time of Encounter: 09:55 - Assessment and Plan (1) Acute worsening of stage 3 chronic kidney disease Current Visit: No Status: Acute Still with nonoliguric MARISSA and despite diuretics, she continues to improved. However her volume status remains hypervolemic, so would recommend remaining hospitalized with ongoing diuresis. So would continue diuretics and recommend ongoing strict I/Os, daily weights and low Na diet. Hx of CKD stage III, with renal risk factors: right renal atrophy, morbid obesity, prior nursing home use of NSAIDs, diuretics Continue to follow a renal protective strategy: avoid NSAIDs, IV contrast, Bactrim and dose Rx by GFR. Will follow with you. Thank you. (2) Right renal atrophy Current Visit: Yes Status: Acute See above. Suspect this is not acute, but chronic since the left kidney has had time to hypertrophy (13+cm in longest dimension). May need renal doppler at some point to screen for CONI. (3) CKD (chronic kidney disease) stage 3, GFR 30-59 ml/min Current Visit: No Status: Chronic See above (4) Hypertension Current Visit: No Status: Chronic Qualifiers: Hypertension type: essential hypertension Qualified Code(s): I10 - Essential (primary) hypertension (5) Hypomagnesemia Current Visit: No Status: Resolved S/p repletion Subjective Principal diagnosis: MARISSA Interval history: Pt was seen/examined earlier today. She did not affirm N/V/D but still reported ongoing edema. She voiced thinking the LLE may be slightly worsened. Objective - Vital Signs Vital signs: Vital Signs Temp Pulse Resp BP Pulse Ox 09/08/17 08:00 16 93 09/08/17 06:58 97.6 F 67 16 154/69 93 09/07/17 23:10 97.6 F 60 16 146/55 96 09/07/17 20:04 16 93 09/07/17 19:05 97.6 F 66 16 154/71 95 09/07/17 15:42 98.1 F 66 16 169/64 92 Intake and Output 09/07/17 09/08/17 09/08/17 23:59 07:59 15:59 Intake Total 700 / 700 Output Total 600 / 600 400 / 400 Balance 100 / 100 -400 / -400 Intake: Oral 700 / 700 Output: Urine 600 / 600 400 / 400 Other: Stool Size Small Stool Consistency soft Stool Color Brown # Bowel Movements 1 Blood Glucose* 157 87 - General Appearance General appearance: Present: well-developed, well-nourished, appears started age , obese EENT: Present: ATNC, PERRL, mucous membranes moist Neck: Present: supple Additional Comments: Clear except the LLL with crackles. Cardiology: Present: no murmurs, edema, regular rate, regular rhythm, normal S1 , normal S2 Gastrointestinal: Present: normoactive bowel sounds, no tenderness, no guarding Integumentary: Present: no rash, warm and dry Neurologic: Present: no focal deficit, no asterixis, alert and oriented x3 Musculoskeletal: Present: no deformities, no erythema, no cyanosis, no clubbing Psychiatric: Present: mood/affect appropriate, cooperative - Lab 09/08/17 04:37 09/08/17 04:37 Most recent lab results Calcium 8.5 mg/dL (8.6-10.3) L 09/08/17 04:37 Phosphorus 3.4 mg/dL (2.7-4.5) 09/08/17 04:37 Magnesium 1.5 mg/dL (1.6-2.6) L 09/08/17 04:37 Urine Creatinine 164 mg/dL 08/28/17 17:32 Urine Sodium 35.7 mEq/L 08/28/17 17:32 Urine Total Protein 36 mg/dL 08/28/17 17:32 Consult Discharge Plan - Plan Referrals: Magnus Donaldson DO [Partnered Physician] - 09/11/17 10:50 am (hospital follow-up ; discuss colonoscopy (patient has never had one), guiac positive stool) Eduardo Hernandez Jr, MD [Primary Care Provider] - 09/07/17 11:00 am
[2017-09-08] MEDS: metOLazone 2.5 MG TABLET PO SCH (13:26)
[2017-09-08] MEDS ORDERED: Furosemide 40 MG/4 ML VIAL IVP SCH (17:00)
--- NOTE | 2017-09-08 17:10 | Internal Med Progress Note ---
Date of Encounter: 09/08/17 Time of Encounter: 09:30 - Assessment and plan (1) Acute on chronic renal failure Current Visit: Yes Status: Chronic Assessment and plan: Cr peaked at 4.15; likely due to excessive GI losses with persistent loose stools. Renal US unremarkable. Avoid nephrotoxins if possible. Cont strict I/ Os. Renal function slowly improving; possible cardiorenal syndrome. Holding ANMOL to avoid worsening renal function. Continue home Bumex, metolazone added. Nephrology following. Qualifiers: Acute renal failure type: unspecified Chronic kidney disease stage: stage 3 (moderate) Qualified Code(s): N17.9 - Acute kidney failure, unspecified; N18.3 - Chronic kidney disease, stage 3 (moderate); N18.3 - Chronic kidney disease, stage 3 (moderate) (2) Diarrhea Current Visit: Yes Status: Acute Assessment and plan: Presented with stools for 1 week. Patient reports being on multiple rounds of ATB outpatient due to recurrent pneumonia. Stool studies negative. Cont to complain of loose stool immediately after eating with associated abdominal cramps. Evaluated by GI who noted functional diarrhea versus ATB induced diarrhea. Oral vancomycin started. PRN loperamide. Number of stools decreasing as of 2/10 per patient. Qualifiers: Diarrhea type: unspecified type Qualified Code(s): R19.7 - Diarrhea, unspecified (3) Acute on chronic congestive heart failure Current Visit: No Status: Acute Assessment and plan: known hx diastolic dysfunction. On the Bumex at home. 08/31/17 TTE with EF 55%. Clinically appears overloaded on exam with crackles. Cont pulse lasix. Give one- time dose IV Lasix. Strict I and O's, daily weights. Home diuretic resumed. Qualifiers: Qualified Code(s): I50.33 - Acute on chronic diastolic (congestive) heart failure (4) Healthcare associated bacterial pneumonia Current Visit: Yes Status: Acute Assessment and plan: suspected; chest CTA with increasing consolidation within bilateral lower lobes and right middle lobe concerning for pneumonia. Concern for MRSA and Pseudomonas with multiple hospitalizations, recent prior antibiotic use and chronic steroid use. Repleted seven-day course of Zyvox which treated for MRSA. History of Pseudomonas pneumonia; continue Zosyn for now. Repeat sputum culture. (5) Hypokalemia Current Visit: No Status: Resolved Assessment and plan: in the setting of excessive GI losses with loose stool. Monitor daily K and replace as needed. K 3.5 on 09/05 (6) Anemia Current Visit: Yes Status: Acute Assessment and plan: anemia of chronic disease. Hgb stable. Intermittently monitor. Qualifiers: Qualified Code(s): D64.9 - Anemia, unspecified (7) Partial small bowel obstruction Current Visit: Yes Status: Resolved Assessment and plan: presented with left sided abdominal tenderness, abdominal bloating, nausea/ vomiting, poor appetite for 1 week. Abdominal/pelvis CT concerning for partial small bowel obstruction. Initially managed with nothing by mouth and NG. Diet was slowly advanced. Patient now tolerating regular diet and having loose stool. Now resolved. Gen. surgery followed. 09/07/17 repeat KUB unremarkable. (8) Chronic steroid use Current Visit: Yes Status: Chronic Assessment and plan: Due to COPD (on 10mg prednisone every other day at home). Stress dose steroids started upon admission. IV steroids tapered 09/06. Resume home steroid dose. (9) DVT prophylaxis Current Visit: Yes Status: Acute Assessment and plan: Heparin subcutaneous twice daily. Up to chair twice a day. Patient has been ambulatory in the room. - Subjective Interval history: Seen and examined at bedside; says she feels about the same. Still having loose stools after eating. Says she does not want to go home until stool frequency has decreased. No CP or SOB - Constitutional Vitals: Temp Pulse Resp BP Pulse Ox 97.9 F 62 17 151/75 93 09/08/17 15:28 09/08/17 15:28 09/08/17 15:28 09/08/17 15:28 09/08/17 15:28 General appearance: Present: cooperative, A&O X 3, pleasant, no acute distress, obese, answers questions appropriately Internal Medicine: Result - Labs CBC & Chem 7: 09/08/17 04:37 09/08/17 04:37 Labs: Short CBC 09/08/17 Range/Units 04:37 WBC 7.3 (4.3-11.1) K/mcL Hgb 9.2 L (11.5-15.4) g/dL Hct 30.2 L (35.3-44.9) % Plt Count 137 L (140-400) K/mcL Neutrophils # 5.0 (1.6-8.9) K/mcL BMP 09/08/17 04:37 Sodium 142 Potassium 4.3 Chloride 111 H Carbon Dioxide 26 BUN 38 H Creatinine 1.59 H Glucose 92 Calcium 8.5 L Consult Discharge Plan - Plan Referrals: Magnus Donaldson DO [Partnered Physician] - 09/11/17 10:50 am (hospital follow-up ; discuss colonoscopy (patient has never had one), guiac positive stool) Eduardo Hernandez Jr, MD [Primary Care Provider] - 09/07/17 11:00 am
[2017-09-08] MEDS: Acetaminophen 325 MG TABLET PO PRN (23:03)
[2017-09-09] MEDS: *HR* Heparin 5,000 UNIT/ML VIAL SQ SCH ×2 (05:36→18:25)
[2017-09-09 05:53] LABS: Calcium 8.7 mg/dL (8.6-10.3); Potassium 3.8 mEq/L (3.5-5.1)
[2017-09-09] MEDS: Tiotropium 18 MCG inhalation IH SCH (08:02)
[2017-09-09] MEDS: Budesonide/Formoterol 160/4.5 MDI IH SCH ×2 (08:03→21:10)
[2017-09-09] MEDS: Ascorbic Acid 500 MG TABLET PO SCH (09:19)
[2017-09-09] MEDS: hydrALAZINE 25 MG TABLET PO SCH ×4 (09:19→21:52)
[2017-09-09] MEDS: metOLazone 2.5 MG TABLET PO SCH (09:19)
[2017-09-09] MEDS: Lactobacillus 1 EACH CAP.SPRINK PO SCH ×2 (09:19→21:52)
[2017-09-09] MEDS: Cholecalciferol (D-3) 1,000 UNIT TABLET PO SCH (09:20)
[2017-09-09] MEDS: Multivit/Ca/Min/Fe/FA 1 TAB TABLET PO SCH (09:20)
[2017-09-09] MEDS: predniSONE 10 MG TABLET PO SCH (09:20)
[2017-09-09] MEDS: Bumetanide 1 MG TABLET PO SCH ×2 (09:20→18:13)
[2017-09-09] MEDS: Diltiazem CD (24hr) 180 MG CAPSULE PO SCH (09:20)
[2017-09-09] MEDS: metroNIDAZOLE 250 MG TABLET PO SCH ×3 (09:20→21:51)
[2017-09-09] MEDS: Nystatin POWDER 30 GM BOTTLE TP SCH ×2 (09:24→21:53)
[2017-09-09] MEDS: Fluticasone Propionate Nasal 50 MCG/SPRAY BOTTLE NS SCH (09:24)
[2017-09-09] MEDS: Vitamin B Complex/Vit C/Vit E 1 EACH TABLET PO SCH (09:24)
[2017-09-09] MEDS: Insulin LISPRO 300 UNITS/3 ML VIAL SQ SCH ×4 (09:25→21:52)
--- NOTE | 2017-09-09 11:54 | Nephrology Progress Note ---
Date of Encounter: 09/09/17 Time of Encounter: 11:25 - Assessment and Plan (1) Acute worsening of stage 3 chronic kidney disease Current Visit: No Status: Acute Nonoliguric MARISSA: trending better as is her volume status: recommend continuing the Bumex 2mg po bid (her home dosing) with an additional Metolazone 2.5mg po bid today, but would not send her home on metolazone. Na, K remain intake. Continue to monitor serum Mg. So would continue diuretics and recommend ongoing strict I/Os, daily weights and low Na diet. 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 Will follow with you. Thank you. (2) Right renal atrophy Current Visit: Yes Status: Acute See above. Suspect this is not acute, but chronic since the left kidney has had time to hypertrophy (13+cm in longest dimension). May need renal doppler at some point to screen for CONI. (3) CKD (chronic kidney disease) stage 3, GFR 30-59 ml/min Current Visit: No Status: Chronic See above (4) Hypertension Current Visit: No Status: Chronic Qualifiers: Hypertension type: essential hypertension Qualified Code(s): I10 - Essential (primary) hypertension (5) Hypomagnesemia Current Visit: No Status: Resolved S/p repletion. Need to monitor while on diuretics. Subjective Principal diagnosis: MARISSA Interval history: Pt was seen/examined earlier today. She did not affirm N/V/D but affirmed that her ankle edema is starting to improve today. She felt the addition of metolazone noticeably improved her UOP. She denied affirm cramping or CP. Objective - Vital Signs Vital signs: Vital Signs Temp Pulse Resp BP Pulse Ox 09/09/17 11:13 98.7 F 68 16 136/68 94 09/09/17 08:04 93 09/09/17 07:09 97.5 F L 70 18 146/66 93 09/09/17 03:26 97.6 F 63 16 158/58 96 09/08/17 22:45 97.7 F 58 15 139/53 92 09/08/17 20:23 97 09/08/17 20:07 98.2 F 76 16 134/83 97 09/08/17 19:59 16 96 09/08/17 15:28 97.9 F 62 17 151/75 93 Intake and Output 09/08/17 09/09/17 09/09/17 23:59 07:59 15:59 Intake Total 400 / 400 240 / 240 Balance 400 / 400 240 / 240 Intake: Oral 400 / 400 240 / 240 Other: Meal water pitcher Breakfast Percent of Meal Consumed 100% Stool Size Moderate Stool Consistency loose liquid # Voids 1 1 1 # Bowel Movements 1 Weight 110.268 kg Blood Glucose* 129 90 149 Patient Weight 09/09/17 23:59 Weight 110.268 kg - General Appearance General appearance: Present: well-developed, well-nourished, appears started age , obese EENT: Present: ATNC, PERRL, mucous membranes moist Neck: Present: supple Respiratory: Present: clear Cardiology: Present: edema (1+ ankle edema b/l), regular rate, regular rhythm, normal S1, normal S2 Gastrointestinal: Present: normoactive bowel sounds, no tenderness, no guarding Integumentary: Present: no rash, warm and dry, chronic venous stasis Neurologic: Present: no focal deficit, no asterixis, alert and oriented x3 Musculoskeletal: Present: no deformities, no cyanosis Psychiatric: Present: mood/affect appropriate, cooperative - Lab 09/08/17 04:37 09/09/17 05:01 Most recent lab results Calcium 8.7 mg/dL (8.6-10.3) 09/09/17 05:01 Phosphorus 3.4 mg/dL (2.7-4.5) 09/08/17 04:37 Magnesium 1.5 mg/dL (1.6-2.6) L 09/08/17 04:37 Urine Creatinine 164 mg/dL 08/28/17 17:32 Urine Sodium 35.7 mEq/L 08/28/17 17:32 Urine Total Protein 36 mg/dL 08/28/17 17:32 Consult Discharge Plan - Plan Referrals: Magnus Donaldson DO [Partnered Physician] - 09/11/17 10:50 am (hospital follow-up ; discuss colonoscopy (patient has never had one), guiac positive stool) Eduardo Hernandez Jr, MD [Primary Care Provider] - 09/07/17 11:00 am
--- NOTE | 2017-09-09 17:02 | Internal Med Progress Note ---
Date of Encounter: 09/09/17 Time of Encounter: 11:30 - Assessment and plan (1) Acute on chronic renal failure Current Visit: Yes Status: Chronic Assessment and plan: Cr peaked at 4.15; likely due to excessive GI losses with persistent loose stools. Renal US unremarkable. Avoid nephrotoxins if possible. Cont strict I/ Os. Renal function slowly improving; possible cardiorenal syndrome. Holding ANMOL to avoid worsening renal function. Continue home Bumex, metolazone added. Nephrology following. Qualifiers: Acute renal failure type: unspecified Chronic kidney disease stage: stage 3 (moderate) Qualified Code(s): N17.9 - Acute kidney failure, unspecified; N18.3 - Chronic kidney disease, stage 3 (moderate); N18.3 - Chronic kidney disease, stage 3 (moderate) (2) Diarrhea Current Visit: Yes Status: Acute Assessment and plan: Presented with stools for 1 week. Patient reports being on multiple rounds of ATB outpatient due to recurrent pneumonia. Stool studies negative. Cont to complain of loose stool immediately after eating with associated abdominal cramps. Evaluated by GI who noted functional diarrhea versus ATB induced diarrhea. Oral vancomycin started. PRN loperamide. Number of stools decreasing as of 2/10 per patient. Trial Questran. Qualifiers: Diarrhea type: unspecified type Qualified Code(s): R19.7 - Diarrhea, unspecified (3) Acute on chronic congestive heart failure Current Visit: No Status: Acute Assessment and plan: known hx diastolic dysfunction. On the Bumex at home. 08/31/17 TTE with EF 55%. Clinically appears overloaded on exam with crackles. Cont pulse lasix. Give one- time dose IV Lasix. Strict I and O's, daily weights. Home diuretic resumed. Qualifiers: Qualified Code(s): I50.33 - Acute on chronic diastolic (congestive) heart failure (4) Healthcare associated bacterial pneumonia Current Visit: Yes Status: Acute Assessment and plan: suspected; chest CTA with increasing consolidation within bilateral lower lobes and right middle lobe concerning for pneumonia. Concern for MRSA and Pseudomonas with multiple hospitalizations, recent prior antibiotic use and chronic steroid use. Repleted seven-day course of Zyvox which treated for MRSA. History of Pseudomonas pneumonia; continue Zosyn for now. Repeat sputum culture. (5) Hypokalemia Current Visit: No Status: Resolved Assessment and plan: in the setting of excessive GI losses with loose stool. Monitor daily K and replace as needed. K 3.5 on 09/05 (6) Anemia Current Visit: Yes Status: Acute Assessment and plan: anemia of chronic disease. Hgb stable. Intermittently monitor. Qualifiers: Qualified Code(s): D64.9 - Anemia, unspecified (7) Partial small bowel obstruction Current Visit: Yes Status: Resolved Assessment and plan: presented with left sided abdominal tenderness, abdominal bloating, nausea/ vomiting, poor appetite for 1 week. Abdominal/pelvis CT concerning for partial small bowel obstruction. Initially managed with nothing by mouth and NG. Diet was slowly advanced. Patient now tolerating regular diet and having loose stool. Now resolved. Gen. surgery followed. 09/07/17 repeat KUB unremarkable. (8) Chronic steroid use Current Visit: Yes Status: Chronic Assessment and plan: Due to COPD (on 10mg prednisone every other day at home). Stress dose steroids started upon admission. IV steroids tapered 09/06. Resume home steroid dose. (9) DVT prophylaxis Current Visit: Yes Status: Acute Assessment and plan: Heparin subcutaneous twice daily. Up to chair twice a day. Patient has been ambulatory in the room. - Subjective Interval history: Seen and examined at bedside; says she feels a little bit better today. Still with loose stools but overall number of stools decreasing and they appear to be forming. Still with lower extremity edema which is also slightly improved. Discussed with her at length the need to elevate legs as much as possible in the acute setting to help decrease edema. She would like to try a dose of history and see if that will help loose stools. Hopefully can discharge tomorrow. - Constitutional Vitals: Temp Pulse Resp BP Pulse Ox 99.1 F 71 17 121/69 93 09/09/17 15:18 09/09/17 15:18 09/09/17 15:18 09/09/17 15:18 09/09/17 15:18 General appearance: Present: cooperative, A&O X 3, pleasant, no acute distress, obese, answers questions appropriately - Head Head exam: Present: atraumatic, normocephalic - Eye Eye exam: Present: PERRL, conjuntiva pink, sclera anicteric Pupils: Present: PERRL - Neck Neck exam general surgery: Present: supple, trachea midline. Absent: lymphadenopathy - Respiratory Respiratory exam: Present: rales, rhonchi. Absent: accessory muscle use, wheezes - Cardiovascular Cardiovascular exam: Present: RRR, +S1, +S2. Absent: diastolic murmur, gallop, rubs, systolic murmur - GI/Abdominal GI/Abdominal exam: Present: normal bowel sounds, soft, no peritoneal signs. Absent: distended, tenderness - Extremities Exam Extremities exam: Present: pedal edema, warm, radial pulses palpable and symmetrical. Absent: calf tenderness, cyanotic - Neurological Exam Neurological exam: Present: CN II-XII intact, oriented X3, no focal deficits. Absent: pronater drift, facial droop, speech deficit - Skin Skin exam: Present: dry, intact Internal Medicine: Result - Labs CBC & Chem 7: 09/08/17 04:37 09/09/17 05:01 Labs: BMP 09/09/17 05:01 Sodium 137 Potassium 3.8 Chloride 104 Carbon Dioxide 28 BUN 33 H Creatinine 1.51 H Glucose 86 Calcium 8.7 Consult Discharge Plan - Plan Referrals: Magnus Donaldson DO [Partnered Physician] - 09/11/17 10:50 am (hospital follow-up ; discuss colonoscopy (patient has never had one), guiac positive stool) Eduardo Hernandez Jr, MD [Primary Care Provider] - 09/07/17 11:00 am
[2017-09-09] MEDS: Acetaminophen 325 MG TABLET PO PRN (21:52)
[2017-09-10] MEDS: *HR* Heparin 5,000 UNIT/ML VIAL SQ SCH ×2 (05:34→16:37)
[2017-09-10 05:49] LABS: Basophils # 0.1 K/mcL (0.0-0.2); Basophils % 0.5 %; Eosinophils % 0.2 %; Hematocrit 30.4 % (35.3-44.9); Hemoglobin 9.6 g/dL (11.5-15.4); Immature Granulocytes % 0.8 % (0-4); Lymphocytes # 1.6 K/mcL (0.6-4.6); Lymphocytes % 17.5 %; Mean Corpuscular HGB Conc 31.6 g/dL (31.6-35.5); Mean Corpuscular Hemoglobin 26.6 pg (28.0-33.3); Mean Corpuscular Volume 84.2 fL (83.0-100.0); Mean Platelet Volume 10.4 fL (9.4-12.4); Monocytes # 0.7 K/mcL (0.0-1.3); Monocytes % 7.3 %; Neutrophils # 6.7 K/mcL (1.6-8.9); Platelet Count 147 K/mcL (140-400); Red Blood Count 3.61 M/mcL (3.82-4.97); Red Cell Distribution Width 19.3 % (11.5-14.5); Segmented Neutrophils % 73.7 %
[2017-09-10 06:13] LABS: Calcium 8.8 mg/dL (8.6-10.3)
[2017-09-10] MEDS: Budesonide/Formoterol 160/4.5 MDI IH SCH (08:58)
[2017-09-10] MEDS: Tiotropium 18 MCG inhalation IH SCH (08:59)
[2017-09-10] MEDS: Vitamin B Complex/Vit C/Vit E 1 EACH TABLET PO SCH (09:13)
[2017-09-10] MEDS: metOLazone 2.5 MG TABLET PO SCH (09:13)
[2017-09-10] MEDS: Diltiazem CD (24hr) 180 MG CAPSULE PO SCH (09:13)
[2017-09-10] MEDS: metroNIDAZOLE 250 MG TABLET PO SCH ×3 (09:13→16:42)
[2017-09-10] MEDS: Bumetanide 1 MG TABLET PO SCH ×2 (09:13→16:36)
[2017-09-10] MEDS: Ascorbic Acid 500 MG TABLET PO SCH (09:13)
[2017-09-10] MEDS: Multivit/Ca/Min/Fe/FA 1 TAB TABLET PO SCH (09:14)
[2017-09-10] MEDS: Lactobacillus 1 EACH CAP.SPRINK PO SCH (09:14)
[2017-09-10] MEDS: hydrALAZINE 25 MG TABLET PO SCH ×3 (09:14→16:36)
[2017-09-10] MEDS: Cholecalciferol (D-3) 1,000 UNIT TABLET PO SCH (09:14)
[2017-09-10] MEDS: predniSONE 10 MG TABLET PO SCH (09:14)
[2017-09-10] MEDS: Insulin LISPRO 300 UNITS/3 ML VIAL SQ SCH ×3 (09:16→16:37)
[2017-09-10] MEDS: Fluticasone Propionate Nasal 50 MCG/SPRAY BOTTLE NS SCH (09:17)
[2017-09-10] MEDS: Nystatin POWDER 30 GM BOTTLE TP SCH (09:17)
--- NOTE | 2017-09-10 11:03 | Nephrology Progress Note ---
Date of Encounter: 09/10/17 Time of Encounter: 10:30 - Assessment and Plan (1) Acute worsening of stage 3 chronic kidney disease Status: Acute SCr continuing to improve. Reasonable to discharge and recommend Nephro follow up in about 3-5 weeks with a BMP about 1-2 weeks after discharge. Cont Bumex but would not continue Metolazone at discharge. 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 Will follow with you. Thank you. (2) Right renal atrophy Status: Acute See above. Suspect this is not acute, but chronic since the left kidney has had time to hypertrophy (13+cm in longest dimension). May need renal doppler at some point to screen for CONI. (3) CKD (chronic kidney disease) stage 3, GFR 30-59 ml/min Status: Chronic See above (4) Hypertension Status: Chronic Qualifiers: Hypertension type: essential hypertension Qualified Code(s): I10 - Essential (primary) hypertension (5) Hypomagnesemia Status: Resolved S/p repletion. Need to monitor while on diuretics. Subjective Principal diagnosis: MARISSA Interval history: Pt was seen/examined earlier today. She did not affirm N/V/D Objective - Vital Signs Vital signs: Vital Signs Temp Pulse Resp BP Pulse Ox 09/10/17 08:58 18 125/62 91 09/10/17 08:26 98.0 F 93 16 125/62 91 09/10/17 02:35 97.7 F 65 16 133/68 91 09/09/17 22:26 97.5 F L 64 20 149/63 95 09/09/17 21:17 966 09/09/17 19:40 98.0 F 73 20 134/67 95 09/09/17 15:18 99.1 F 71 17 121/69 93 09/09/17 11:13 98.7 F 68 16 136/68 94 Intake and Output 09/09/17 09/10/17 09/10/17 23:59 07:59 15:59 Intake Total 510 / 510 300 / 300 Output Total 650 / 650 625 / 625 Balance -140 / -140 -625 / -625 300 / 300 Intake: Oral 510 / 510 300 / 300 Output: Urine 650 / 650 425 / 425 Urine/Stool Mix 200 / 200 Other: Meal Dinner Breakfast Percent of Meal Consumed 100% 100% Stool Size Small Stool Consistency loose Stool Color Brown Weight 104.236 kg Blood Glucose* 156 114 Patient Weight 09/10/17 23:59 Weight 104.236 kg - General Appearance Exam: General appearance: Present: well-developed, well-nourished, appears started age , obese EENT: Present: ATNC, PERRL, mucous membranes moist Neck: Present: supple Respiratory: Present: clear Cardiology: Present: edema (trace to 1+ ankle edema b/l), regular rate, regular rhythm, normal S1, normal S2 Gastrointestinal: Present: normoactive bowel sounds, no tenderness, no guarding Integumentary: Present: no rash, warm and dry, chronic venous stasis Neurologic: Present: no focal deficit, no asterixis, alert and oriented x3 Musculoskeletal: Present: no deformities, no cyanosis Psychiatric: Present: mood/affect appropriate, cooperative - Lab 09/10/17 04:27 09/10/17 04:27 Most recent lab results Calcium 8.8 mg/dL (8.6-10.3) 09/10/17 04:27 Phosphorus 3.4 mg/dL (2.7-4.5) 09/08/17 04:37 Magnesium 1.0 mg/dL (1.6-2.6) L 09/10/17 04:27 Urine Creatinine 164 mg/dL 08/28/17 17:32 Urine Sodium 35.7 mEq/L 08/28/17 17:32 Urine Total Protein 36 mg/dL 08/28/17 17:32 Consult Discharge Plan - Plan Instructions: Loperamide (By mouth), Chronic Diarrhea, [facility] Doctor (GEN), Acute Diarrhea, [facility] Doctor (GEN) Additional Instructions: Follow-up appointments: If there is not an appointment listed below, please call your physician and schedule a follow-up appointment. If you have congestive heart failure and your symptoms return, make an appointment with your physician. Medication List: Carry an up to date list of medications you are taking at all time. We have given you an updated medication list including any new medications that you have been prescribed. Please provide that list to your primary provider Symptoms: If your condition changes or you experience any of the following symptoms, notify your physician immediately: Unusual or worsening pain, fever, persistent nausea and vomiting, bleeding, increase in swelling (especially in your legs), sudden weight gain, extreme dizziness, chest pain, increased drainage or redness from a wound or incision. Go to the emergency department if you experience a problem with breathing. Weights: If you have a history of swelling or shortness of breath, weigh yourself daily and notify your physician if you have a weight gain of two or more pounds in one day or 5 or more pounds in a week. If you experience any of the warning signs for stroke: Sudden numbness or weakness of the face, arm or leg; especially on one side of the body, sudden confusion, trouble speaking or understanding, sudden trouble seeing in one or both eyes, sudden trouble walking, dizziness, loss of balance or coordination, sudden sever headache with no cause; Call 911 or go to the emergency room. Stroke is a medical emergency. Some risk factors for stroke: Age, cigarette smoking, diabetes, excessive alcohol consumption, family history , high blood pressure, overweight, physical inactivity, prior stroke, heart attack, diagnosis of carotid artery stenosis or other artery disease. If you smoke, STOP: Smoking or tobacco use significantly increases your risk of heart and lung disease. Your chance of disease greatly increases if you continue to smoke. For more information, call the [place] tobacco quit line for smoking cessation 2-722 QUIT-NOW ( ) Referrals: Eliseo Osman MD [Partnered Physician] - 09/25/17 9:40 am (Please call for follow-up appt within 2 weeks ) Magnus Donaldson DO [Partnered Physician] - 09/11/17 10:50 am (hospital follow-up ; discuss colonoscopy (patient has never had one), guiac positive stool) Eduardo Hernandez Jr, MD [Primary Care Provider] - 09/07/17 11:00 am Socrates Howard DO [Partnered Physician] - (Appointment has been webrequested. our offices will call you with an appointment. If you do not hear from us within a couple days please call the number provided for the Nephrology office. ) Prescriptions: Loperamide [Imodium] 2 mg PO Q4HR PRN #30 capsule PRN Reason: Diarrhea metroNIDAZOLE [Flagyl] 250 mg PO TID #15 tablet
[2017-09-10] MEDS ORDERED: Cholestyramine 4 GM POWD.PACK PO ONE (12:26)
--- NOTE | 2017-09-10 13:24 | Discharge Summary ---
Date of Encounter: 09/10/17 Time of Encounter: 13:18 - Discharge Diagnosis (1) Acute on chronic renal failure Priority: Primary Status: Chronic Comments: Cr peaked at 4.15; likely due to excessive GI losses with persistent loose stools. Renal US unremarkable. She received pulsed doses of IV Lasix as well as metolazone. Renal function slowly improved. Continue holding home ANMOL until Nephrology follow-up. Continue home Bumex. Follow-up with Nephrology outpatient Qualifiers: Acute renal failure type: unspecified Chronic kidney disease stage: stage 3 (moderate) Qualified Code(s): N17.9 - Acute kidney failure, unspecified; N18.3 - Chronic kidney disease, stage 3 (moderate); N18.3 - Chronic kidney disease, stage 3 (moderate) (2) Diarrhea Priority: Primary Status: Acute Comments: presented with loose stools for 1 week. Patient reports being on multiple rounds of ATB outpatient due to recurrent pneumonia. Stool studies negative. Cont to complain of loose stool immediately after eating with associated abdominal cramps. Evaluated by GI who noted functional diarrhea versus ATB induced diarrhea. Flagyl started empirically for C. difficile despite negative stool studies given her recent exposure to ATB and persistent loose stool. Qualifiers: Diarrhea type: unspecified type Qualified Code(s): R19.7 - Diarrhea, unspecified (3) Acute on chronic congestive heart failure Priority: Primary Status: Acute Comments: known hx diastolic dysfunction. On the Bumex at home. 08/31/17 TTE with EF 55%. Clinically appears overloaded on exam with crackles and edema on exam. She was diuresed with pulse doses of IV Lasix and metolazone. She was down 6 kg at time of discharge. Continue home Bumex. Nurse navigator consulted and will follow-up outpatient Qualifiers: Qualified Code(s): I50.33 - Acute on chronic diastolic (congestive) heart failure (4) Healthcare associated bacterial pneumonia Priority: Primary Status: Acute Comments: suspected; chest CTA with increasing consolidation within bilateral lower lobes and right middle lobe concerning for pneumonia. Concern for MRSA and Pseudomonas with multiple hospitalizations, recent prior antibiotic use and chronic steroid use. Completed seven-day course of Zyvox which treated for MRSA. Teated with Zosyn with history of Pseudomonas pneumonia (5) Hypokalemia Priority: Primary Status: Resolved Comments: the setting of excessive GI losses with loose stool. K 4.0 at time of discharge did recommend repeat CMP with PCP in 1-2 weeks. (6) Anemia Priority: Primary Status: Acute Comments: anemia of chronic disease. Hgb stable. Qualifiers: Anemia type: unspecified type Qualified Code(s): D64.9 - Anemia, unspecified (7) Partial small bowel obstruction Priority: Primary Status: Resolved Comments: presented with left sided abdominal tenderness, abdominal bloating, nausea/ vomiting, poor appetite for 1 week. Abdominal/pelvis CT concerning for partial small bowel obstruction. Initially managed with nothing by mouth and NG. Diet was slowly advanced. Patient now tolerating regular diet and having loose stool. Now resolved. Gen. surgery followed. 09/07/17 repeat KUB unremarkable. (8) Chronic steroid use Priority: Primary Status: Chronic Comments: Due to COPD (on 10mg prednisone every other day at home). Stress dose steroids started upon admission and tapered. Home steroid dose resumed. (9) Chronic respiratory failure Priority: Primary Status: Acute Comments: Has known COPD. On oxygen at home. Adequate oxygenating on home dose at 5 L. Qualifiers: Respiratory failure complication: unspecified whether with hypoxia or hypercapnia Qualified Code(s): J96.10 - Chronic respiratory failure, unspecified whether with hypoxia or hypercapnia - Discharge Medications Prescriptions: Loperamide [Imodium] 2 mg PO Q4HR PRN #30 capsule PRN Reason: Diarrhea metroNIDAZOLE [Flagyl] 250 mg PO TID #15 tablet Home Medications: Albuterol Sulfate [Albuterol Inhaler] 2 puff IH Q4H PRN 08/23/16 [History] Amitriptyline [Elavil] 10 mg PO HS 08/23/16 [History] Ascorbate Calcium [Vitamin C] 500 mg PO DAILY 08/23/16 [History] Vitamin B Complex 1 cap PO DAILY 08/23/16 [History] Nystatin POWDER [Nystop] 1 appl TP BID #1 bottle 08/27/16 [Rx] Oxygen 5.5 l NS CONT 09/21/16 [History] Diltiazem CD (24hr) [Cardizem CD] 180 mg PO DAILY #30 cap.er.24h 10/14/16 [Rx] Calcium Carbonate [Calcium] 500 mg PO DAILY 12/06/16 [History] Cholecalciferol (D-3) [Vitamin D] 1,000 unit PO DAILY 12/06/16 [History] Docusate [Colace] 100 mg PO DAILY PRN 12/06/16 [History] Ipratropium/Albuterol Neb [Duoneb] 3 ml IH BID 12/06/16 [History] Multivit-Min/Iron/Folic/Lutein [Centrum Silver Women Tablet] 1 tab PO DAILY 05/15 [History] Multivits Min/Iron/FA/Herb#186 [Hair, Skin and Nails Caplet] 1 tab PO DAILY 05/15 [History] Vitamin E Acid Succinate [Vitamin E] 400 unit PO DAILY 12/06/16 [History] Acetaminophen w/Cod 300-30 mg [Tylenol w/Codeine #3] 1 tab PO TID PRN 12/31/16 [ History] Lactobacillus [Culturelle] 1 each PO BID #30 cap.sprink 01/04/17 [Rx] hydrALAZINE [HydrALAZINE] 25 mg PO QID #120 tablet 01/04/17 [Rx] Atorvastatin Calcium [Lipitor] 20 mg PO BID 06/04/17 [History] Febuxostat [Uloric] 40 mg PO DAILY 06/04/17 [History] Ferrous Gluconate 324 mg PO Q48H 06/04/17 [History] GuaiFENesin ER [Mucinex] 600 mg PO BID PRN 06/04/17 [History] Metoprolol [Lopressor] 50 mg PO BID 06/04/17 [History] [place]-3 Fatty Acids [Fish Oil] 300 mg PO DAILY 06/04/17 [History] Pantoprazole Sodium 40 mg PO BID 06/04/17 [History] metFORMIN [Glucophage] 1,000 mg PO BID 06/04/17 [History] Umeclidinium Brm/Vilanterol Tr [Anoro Ellipta 62.5-25 Mcg INH] 1 each IH DAILY # 1 blst.w.dev 06/07/17 [Rx] Bumetanide [Bumex] 2 mg PO BID 08/02/17 [History] Celecoxib [Celebrex] 100 mg PO DAILY 08/02/17 [History] Fluticasone Propionate Nasal [Flonase] 50 mcg NS DAILY 08/02/17 [History] predniSONE [PredniSONE] 10 mg PO DAILY 12 Days tablet 08/08/17 [Rx] Budesonide/Formoterol 160/4.5 [Symbicort 160/4.5] 1 puff IH AD 08/28/17 [History ] Furosemide [Lasix] 3 tab PO DAILY 08/28/17 [History] Tiotropium [Spiriva] 18 mcg IH 0700 08/28/17 [History] Loperamide [Imodium] 2 mg PO Q4HR PRN #30 capsule 09/10/17 [Rx] metroNIDAZOLE [Flagyl] 250 mg PO TID #15 tablet 09/10/17 [Rx] Allergies/Adverse Reactions: 3 Allergy/AdvReac Type Severity Reaction Status Date / Time No Known Allergies Allergy Verified 08/23/16 19:46 Procedures/tests Complete & Pending: Procedures Performed prior 72 hours Category Date Time Status EV venous imaging LE BI Routine Y 09/10/17 12:26 Completed Date of admission: 08/28/17 12:21 Primary care physician: Eduardo Hernandez Jr, MD Consults: 08/29/17 09:35 Consult to [place] [CONS] Routine Reason for SW Consult: home health 08/29/17 13:07 Consult to Surgery [CONS] Routine Consulting Provider: Magnus Donaldson Reason for Consult: SBO, +stool occult blood with slight decrease in Hgb. Pt had "copious amount" of dark liquid stool yesterday. Prior history of GI bleed and was scoped at [facility] within a year. Recommendations for GI bleeding, please. Time Notified: 13:11 Call Completed: Yes 08/31/17 08:33 Consult to Invasive Line Access Team [CONS] Routine Reason for Consult: Limited IV assess Line Type: EPIV 08/31/17 09:34 Consult to Nephrology [CONS] Routine Consulting Provider: Remy Thrasher Reason for Consult: cont care Call Completed: Yes 08/31/17 11:30 Consult to Occupational Therapy [CONS] Routine Comment: Evaluate, develop and implement POC Reason for Consult: possible discharge on sunday Consult to Physical Therapy [CONS] Routine Comment: Evaluate, develop and implement POC Reason for Consult: Possible discharge on Sunday09/06/17 17:12 Consult to Gastroenterology [CONS] Routine Consulting Provider: Gastroenterology Rita Reason for Consult: persistent loose stool, stool studies negative Call Completed: Yes Discharging clinician: Nelly Lucio Anticipated date of discharge: 09/10/17 - Patient Status Disposition: Home, Self-Care Condition: Good Functional capacity at discharge: uses cane/walker Overall status at discharge: patient is progressing back to baseline - Discharge Instructions Follow Up With: Magnus Donaldson DO [Partnered Physician] - 09/11/17 10:50 am (hospital follow-up ; discuss colonoscopy (patient has never had one), guiac positive stool) Eduardo Hernandez Jr, MD [Primary Care Provider] - 09/07/17 11:00 am Socrates Howard DO [Partnered Physician] - (Please call office for an appointment) Eliseo Osman MD [Partnered Physician] - (Please call for follow-up appt within 2 weeks ) - Diet and Activity Activity: increase activity as tolerated Diet: advance to your usual diet, low fat, low cholesterol, low salt diet Interval History: Seen and examined at bedside. Says swelling and leg is a little better. Still having loose stools but decreasing in frequency and bulking up a little. She is reluctant to discharge home due to persistent loose stools. Discussed with her at length that it may take a couple weeks for bowel function returned to normal. No abdominal pain, no nausea or vomiting. She is tolerating a regular diet. Discussed with GI and okay to discharge home with as needed loperamide and continue lacto for 5 more days. Hospital course: See assessment and plan for hospital course - Time Spent with Patient Total time spent providing and/or coordinating discharge services: - Constitutional Vitals: Temp Pulse Resp BP Pulse Ox 98.2 F 75 18 133/70 92 09/10/17 11:58 09/10/17 11:58 09/10/17 11:58 09/10/17 11:58 09/10/17 11:58 General appearance: Present: cooperative, A&O X 3, pleasant, no acute distress, obese, answers questions appropriately - Head Head exam: Present: atraumatic, normocephalic - Eye Eye exam: Present: PERRL, conjuntiva pink, sclera anicteric Pupils: Present: PERRL - Neck Neck exam general surgery: Present: supple, trachea midline. Absent: lymphadenopathy - Respiratory Respiratory exam: Present: CTAB. Absent: accessory muscle use, rales, rhonchi, wheezes - Cardiovascular Cardiovascular exam: Present: RRR, +S1, +S2. Absent: diastolic murmur, gallop, rubs, systolic murmur - GI/Abdominal GI/Abdominal exam: Present: normal bowel sounds, soft, no peritoneal signs. Absent: distended, tenderness - Extremities Exam Extremities exam: Present: pedal edema, warm, radial pulses palpable and symmetrical. Absent: calf tenderness, cyanotic - Neurological Exam Neurological exam: Present: CN II-XII intact, oriented X3, no focal deficits. Absent: pronater drift, facial droop, speech deficit - Skin Skin exam: Present: dry, intact
[2017-09-10 15:25] VITALS: BP 131/61
== END 2017-09-10 19:10 | disposition home or self-care (01) | DRG 388 ==
LOC: 3BNU 22:14 → EMEROO 22:14 → 3BNU 08-28 01:41
PROVIDERS: ADMIT Registered Nurse; ATTEND Registered Nurse

== ENCOUNTER 2017-10-28 20:17 | Inpatient (IN) ==
[2017-10-28] MEDS ORDERED: Ipratropium/Albuterol Neb 3 ML IH ONE (20:33)
[2017-10-28] MEDS ORDERED: methylPREDNISolone 125 MG/2 ML VIAL IVP ONE (20:33)
[2017-10-28 20:50] LABS: Basophils % 0.3 %; Hematocrit 43.2 % (35.3-44.9); Hemoglobin 13.9 g/dL (11.5-15.4); Immature Granulocytes % 2.1 % (0-4); Lymphocytes # 1.1 K/mcL (0.6-4.6); Lymphocytes % 10.6 %; Mean Corpuscular HGB Conc 32.2 g/dL (31.6-35.5); Mean Corpuscular Hemoglobin 27.9 pg (28.0-33.3); Mean Corpuscular Volume 86.7 fL (83.0-100.0); Mean Platelet Volume 10.4 fL (9.4-12.4); Monocytes # 0.5 K/mcL (0.0-1.3); Monocytes % 4.8 %; Neutrophils # 8.1 K/mcL (1.6-8.9); Nucleated Red Blood Cells 0.2 /100 WBC (0); Platelet Count 156 K/mcL (140-400); Red Blood Count 4.98 M/mcL (3.82-4.97); Red Cell Distribution Width 18.8 % (11.5-14.5); Segmented Neutrophils % 82.2 %
[2017-10-28 21:20] LABS: Calcium 10.4 mg/dL (8.6-10.3); Potassium 4.7 mEq/L (3.5-5.1); Troponin I 0.03 ng/mL (< 0.04)
[2017-10-28] MEDS ORDERED: Levofloxacin 750 MG/150 ML 750 MG/150 ML BAG IVPB ONE (21:33)
[2017-10-28] MEDS ORDERED: Piperacillin/Tazobactam 3.375 GM in 0.9 % Sodium Chloride Mini Bag 100 ML IVPB ONE (21:33)
[2017-10-28 21:38] LABS: Bilirubin,Urine Negative (Negative); Blood,Urine Negative (Negative); Clarity,Urine Cloudy (Clear); Color,Urine Yellow (Yellow); Glucose,Urine (UA) Normal (Normal); Ketones,Urine Negative (Negative); Leukocyte Esterase,Urine Trace (Negative); Nitrite,Urine Negative (Negative); PH,Urine 7.5 pH Units (5.0-8.0); Protein,Urine Negative (Neg-Trace); Specific Gravity,Urine 1.013 (1.010-1.025); Urobilinogen,Urine Normal (Normal)
[2017-10-28 21:40] LABS: Bacteria,Urine None Seen per hpf (None-Few); Hyaline Casts,Urine None Seen per lpf (None-Few); Squamous Epithelial Cell,Urine Many per lpf (None-Few)
[2017-10-28] MEDS ORDERED: 0.9 % Sodium Chloride 1,000 ML ONE (21:49)
--- NOTE | 2017-10-28 22:32 | Internal Med History&Physical ---
<Maya Alvarado - Last Filed: 10/29/17 00:23> Date of Encounter: 10/29/17 Time of Encounter: 23:05 Assessment and Plan (1) Acute exacerbation of chronic obstructive airways disease Current visit: No Status: Acute 71-year-old female presenting with past medical history of COPD and 4-5 L continuous oxygen and prednisone dependence, with no previous requirement for intubation, and suspected pneumonia Chest x-ray reviewed with attending Andriy q4h, with prn albuterol nebs Patient at home on 40 mg SoluMedrol by mouth Given presentation, Solu-Medrol IV 40 mg q8 Continue noninvasive positive pressure ventilation with BiPAP overnight Target oxygen therapy to achieve an O2 sat of 90-92%. RT in consult, appreciate coordination of care (2) HCAP (healthcare-associated pneumonia) Current visit: No Status: Acute 71 y F presenting with SOB and sputum production, based on CXR, patient presents with suspected pneumonia Pneumonia severity index:Min Score 121 ( AGe 71, female, CHF history, Renal disease history, Pulse> 124, BUN> 29, Pleural effusion on x-ray Of note, Chest X-Ray 10/28/17 20:33 IMPRESSION:1. Bibasilar airspace opacities with small bilateral pleural effusions Continuous pulse oximetry Blood cultures collected in ED Sputum Gram stain and culture Zosyn and vancomycin, dosing per pharmacy When possible, we will de-escalate antibiotics based on sensitivities Further plan per attending note, will review with attending Recommend evaluation for prevention vaccines prior to discharge (3) CKD (chronic kidney disease) stage 3, GFR 30-59 ml/min Current visit: No Status: Acute Patient presenting with creatinine of 1.17, and GFR of 46. Improved from, Baseline creatinine approximately 2 in 2018. Monitor BMP. Renally-adjust medication. (4) DM type 2 (diabetes mellitus, type 2) Current visit: Yes Status: Acute ISS, will adjust as needed. Serial acchuchecks. Hypoglycemia protocol ordered prn. 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 Range in 2018 BNP : 79-156. BNP 2017 high of 379. Continue home medication Recommend continuous monitoring of Cr, while inpatient. Qualifiers: Heart failure type: diastolic Heart failure chronicity: chronic Qualified Code(s): I50.32 - Chronic diastolic (congestive) heart failure (6) Paroxysmal A-fib Current visit: Yes Status: Acute Continue home medication. (7) DVT prophylaxis Current visit: No Status: Acute Minimum TRICE Score: 6 (Reduced mobility, age over > 70>, Heart comorbidity, BMI > 30). Pharmacological prophylaxis is indicated. Positive stool occult blood seen in July 2017, with prior history of GI bleed at [facility]. However As indicatd by high TRICE score, pt at high risk of DVT. Initiate Heparin SubQ q12h. Internal Medicine - H&P: HPI Chief complaint: SOB Admitted From: Home History of present illness: Ms. Pollack is a 71 year old female with past medical history of COPD, CHF, DM 2 , oxygen dependent on 4-5L and BiPAP at night presenting for decreased oxygen saturation on baseline oxygen x 1 week and tachycardia. Patient lives with daughters. Per family, patient's pulse oxygenation dropped to below 80 at rest and to 78% on mild exertion at home. Patient's family monitors heart rate periodically, and noted a heart rate of 148 at rest, which is they presented to the emergency department. Patient was recently started on Daliresp, which family and patient states was not tolerated well, with patient noted increase in tremors. Patient wishes not to continue Daliresp at this point. At home, she states her shortness of breath is well controlled on 40 mg PO daily. However this was recently decreased to 10 mg every other day, which she coincides with decreased control of symptoms. Patient endorses cough, increased sputum of yellow and clear color. Family notes that patient has lost significant weight over past last year, from 304 to 218 pounds. Patient endorses decreased appetite. No history of past intubation. Pt sleeps at 2 pillows at home and has not had to increase number of pillow used. Past Med Surg Social Fam HX - Past Medical History Medical history: arthritis, atrial fibrillation, CHF, COPD, DVT, diabetes, hyperlipidemia, hypertension, pulmonary embolus, renal disease Psychiatric history: anxiety, depression - Past Surgical History Surgical History: appendectomy, - Social History Smoking Status: Former smoker Smokeless Tobacco Status: No Alcohol use: none Drug use: none - Family History Mother Family Member Ethnicity: Non- Living Status: Hx Family Cardiac Disorders: Yes (htn) Hx Family Respiratory Disorders: Yes Hx Family Cancer: Yes (lung) Hx Family GI Disorders: No Hx Family Endocrine Disorder: No Hx Family Neuromuscular Disorders: No Hx Family Neurologic Disorders: No Hx Family HEENT Disorders: No Hx Family Autoimmune Disorders: No Father Family Member Ethnicity: Non- Living Status: Hx Family Cancer: Yes (leukemia) Brother Family Member Ethnicity: Non- Living Status: Hx Family Cancer: Yes (Lung) Sister Family Member Ethnicity: Non- Living Status: Still Living Hx Family Cancer: Yes (Lymphoma) Internal Medicine - H&P: Meds Albuterol Sulfate [Albuterol Inhaler] 2 puff IH Q4H PRN 08/23/16 [History] Amitriptyline [Elavil] 10 mg PO HS 08/23/16 [History] Ascorbate Calcium [Vitamin C] 500 mg PO DAILY 08/23/16 [History] Vitamin B Complex 1 cap PO DAILY 08/23/16 [History] Nystatin POWDER [Nystop] 1 appl TP BID #1 bottle 08/27/16 [Rx] Oxygen 5.5 l NS CONT 09/21/16 [History] Diltiazem CD (24hr) [Cardizem CD] 180 mg PO DAILY #30 cap.er.24h 10/14/16 [Rx] Calcium Carbonate [Calcium] 500 mg PO DAILY 12/06/16 [History] Cholecalciferol (D-3) [Vitamin D] 1,000 unit PO DAILY 12/06/16 [History] Docusate [Colace] 100 mg PO DAILY PRN 12/06/16 [History] Ipratropium/Albuterol Neb [Duoneb] 3 ml IH BID 12/06/16 [History] Multivit-Min/Iron/Folic/Lutein [Centrum Silver Women Tablet] 1 tab PO DAILY 05/15 [History] Multivits Min/Iron/FA/Herb#186 [Hair, Skin and Nails Caplet] 1 tab PO DAILY 05/15 [History] Vitamin E Acid Succinate [Vitamin E] 400 unit PO DAILY 12/06/16 [History] Acetaminophen w/Cod 300-30 mg [Tylenol w/Codeine #3] 1 tab PO TID PRN 12/31/16 [ History] Lactobacillus [Culturelle] 1 each PO BID #30 cap.sprink 01/04/17 [Rx] hydrALAZINE [HydrALAZINE] 25 mg PO QID #120 tablet 01/04/17 [Rx] Atorvastatin Calcium [Lipitor] 20 mg PO BID 06/04/17 [History] Febuxostat [Uloric] 40 mg PO DAILY 06/04/17 [History] Ferrous Gluconate 324 mg PO Q48H 06/04/17 [History] GuaiFENesin ER [Mucinex] 600 mg PO BID PRN 06/04/17 [History] Metoprolol [Lopressor] 50 mg PO BID 06/04/17 [History] [place]-3 Fatty Acids [Fish Oil] 300 mg PO DAILY 06/04/17 [History] Pantoprazole Sodium 40 mg PO BID 06/04/17 [History] metFORMIN [Glucophage] 1,000 mg PO BID 06/04/17 [History] Umeclidinium Brm/Vilanterol Tr [Anoro Ellipta 62.5-25 Mcg INH] 1 each IH DAILY # 1 blst.w.dev 06/07/17 [Rx] Bumetanide [Bumex] 2 mg PO BID 08/02/17 [History] Celecoxib [Celebrex] 100 mg PO DAILY 08/02/17 [History] Fluticasone Propionate Nasal [Flonase] 50 mcg NS DAILY 08/02/17 [History] predniSONE [PredniSONE] 10 mg PO DAILY 12 Days tablet 08/08/17 [Rx] Budesonide/Formoterol 160/4.5 [Symbicort 160/4.5] 1 puff IH AD 08/28/17 [History ] Furosemide [Lasix] 3 tab PO DAILY 08/28/17 [History] Tiotropium [Spiriva] 18 mcg IH 0700 08/28/17 [History] Loperamide [Imodium] 2 mg PO Q4HR PRN #30 capsule 09/10/17 [Rx] metroNIDAZOLE [Flagyl] 250 mg PO TID #15 tablet 09/10/17 [Rx] 3 Allergy/AdvReac Type Severity Reaction Status Date / Time No Known Allergies Allergy Verified 08/23/16 19:46 All Systems PM: A 10-system review of systems was performed and is negative for pertinent findings except as documented above in the HPI. - Constitutional Constitutional: as per HPI - Respiratory Respiratory: as per HPI - Musculoskeletal Musculoskeletal ROS IM: as per HPI - Constitutional Vitals: Temp Pulse Resp BP Pulse Ox 98.5 F 92 22 147/60 92 10/28/17 20:20 10/28/17 22:17 10/28/17 22:17 10/28/17 22:17 10/28/17 22:17 General appearance: Present: cooperative, A&O X 3, obese, answers questions appropriately Exam: pallor. - Head Head exam: Present: atraumatic, normocephalic - Eye Eye exam: Absent: conjunctival injection, nystagmus, conjuntiva pink - Neck Additional comments: No JVD - Respiratory Respiratory exam: Present: wheezes (mild). Absent: chest wall tenderness, stridor - Cardiovascular Cardiovascular exam: Present: RRR, +S1, +S2 - GI/Abdominal GI/Abdominal exam: Present: normal bowel sounds, soft, no peritoneal signs. Absent: firm, tenderness - Extremities Exam Extremities exam: Present: normal capillary refill, pedal edema (+2). Absent: calf tenderness Additional comments: Hands: Erythema noted palmar side b/l Internal Med - H&P Results - Labs CBC & Chem 7: 10/28/17 20:41 10/28/17 20:41 Labs: Short CBC 10/28/17 Range/Units 20:41 WBC 9.9 (4.3-11.1) K/mcL Hgb 13.9 (11.5-15.4) g/dL Hct 43.2 (35.3-44.9) % Plt Count 156 (140-400) K/mcL Neutrophils # 8.1 (1.6-8.9) K/mcL BMP 10/28/17 20:41 Sodium 136 Potassium 4.7 Chloride 90 L Carbon Dioxide 32 H BUN 41 H Creatinine 1.17 Glucose 218 H Calcium 10.4 H Cardiac Enzymes 10/28/17 Range/Units 20:41 Troponin I 0.03 (< 0.04) ng/mL Urine 10/28/17 Range/Units 21:28 Urine Color Yellow (Yellow) Urine Clarity Cloudy A (Clear) Urine pH 7.5 (5.0-8.0) pH Units Ur Specific [place] 1.013 (1.010-1.025) Urine Protein Negative (Neg-Trace) mg/dL Urine Glucose (UA) Normal (Normal) mg/dL - EKG Data EKG comments: 10/29/17 ED EKG reviewed by attending. Vent Rate 132. QRS 94 ms. QTc 382 ms. Regular R-R interval. Borderline Left axis deviation. - Impressions ITS Impressions Chest X-Ray 10/28/17 20:33 IMPRESSION: 1. Bibasilar airspace opacities with small bilateral pleural effusions, left greater than right. The left base airspace opacity may in part be due to scarring with bronchiectasis, based on CT of the abdomen dated August 30, 2017. 2. Stable mild enlargement of the cardiac silhouette. D/ / Iam Hickey MD / Iam Hickey MD Interpreting Provider: Iam Hickey MD <Fei Arshad T - Last Filed: 10/29/17 01:05> Date of Encounter: 10/29/17 Internal Medicine - H&P: HPI History of present illness: Ms. Pollack is a 71 year old female All Systems PM: A 10-system review of systems was performed and is negative for pertinent findings except as documented above in the HPI. - Constitutional Vitals: Temp Pulse Resp BP Pulse Ox 98.0 F 127 18 159/78 88 10/29/17 00:23 10/29/17 00:23 10/29/17 00:23 10/29/17 00:23 10/29/17 00:23 Internal Med - H&P Results - Labs CBC & Chem 7: 10/28/17 20:41 10/28/17 20:41 - Attending Attestation I have independently seen and examined this patient on 10/28/17 and discussed plan of care with the patient, her daughter at the bedside and the resident physician, whose documentation reflect our plan of care
--- NOTE | 2017-10-28 23:08 | Emergency Department Note ---
Disposition Clinical Impression: Septic shock, Acute exacerbation of chronic obstructive airways disease Pneumonia Qualifiers: Pneumonia type: due to unspecified organism Laterality: unspecified laterality Lung location: unspecified part of lung Qualified Code(s): J18.9 - Pneumonia, unspecified organism Disposition: Admitted As Inpatient Condition: Fair General Adult HPI - General Chief complaint: ED Shortness of Breath/Dyspnea Stated complaint: Sob / elevated HR Time Seen by Provider: 10/28/17 20:24 Source: patient Limitations: no limitations Nursing Notes Reviewed: Yes Vital Signs Reviewed: Yes - History of Present Illness Pain Scale: 6 - Related Data Home Medications Medication Instructions Recorded Confirmed Albuterol Sulfate [Albuterol 2 puff IH Q4H PRN 08/23/16 08/28/17 Inhaler] Amitriptyline [Elavil] 10 mg PO HS 08/23/16 08/28/17 Ascorbate Calcium [Vitamin C] 500 mg PO DAILY 08/23/16 08/28/17 Vitamin B Complex 1 cap PO DAILY 08/23/16 08/28/17 Oxygen 5.5 l NS CONT 09/21/16 08/28/17 Calcium Carbonate [Calcium] 500 mg PO DAILY 12/06/16 08/28/17 Cholecalciferol (D-3) [Vitamin D] 1,000 unit PO DAILY 12/06/16 08/28/17 Docusate [Colace] 100 mg PO DAILY PRN 12/06/16 08/28/17 Ipratropium/Albuterol Neb [Duoneb] 3 ml IH BID 12/06/16 08/28/17 Multivit-Min/Iron/Folic/Lutein 1 tab PO DAILY 12/06/16 08/28/17 [Centrum Silver Women Tablet] Multivits Min/Iron/FA/Herb#186 1 tab PO DAILY 12/06/16 08/28/17 [Hair, Skin and Nails Caplet] Vitamin E Acid Succinate [Vitamin 400 unit PO DAILY 12/06/16 08/28/17 E] Acetaminophen w/Cod 300-30 mg 1 tab PO TID PRN 12/31/16 08/28/17 [Tylenol w/Codeine #3] Atorvastatin Calcium [Lipitor] 20 mg PO BID 06/04/17 08/28/17 Febuxostat [Uloric] 40 mg PO DAILY 06/04/17 08/28/17 Ferrous Gluconate 324 mg PO Q48H 06/04/17 08/28/17 GuaiFENesin ER [Mucinex] 600 mg PO BID PRN 06/04/17 08/28/17 Metoprolol [Lopressor] 50 mg PO BID 06/04/17 08/28/17 [place]-3 Fatty Acids [Fish Oil] 300 mg PO DAILY 06/04/17 08/28/17 Pantoprazole Sodium 40 mg PO BID 06/04/17 08/28/17 metFORMIN [Glucophage] 1,000 mg PO BID 06/04/17 08/28/17 Bumetanide [Bumex] 2 mg PO BID 08/02/17 08/28/17 Celecoxib [Celebrex] 100 mg PO DAILY 08/02/17 08/28/17 Fluticasone Propionate Nasal 50 mcg NS DAILY 08/02/17 08/28/17 [Flonase] Budesonide/Formoterol 160/4.5 1 puff IH AD 08/28/17 08/28/17 [Symbicort 160/4.5] Furosemide [Lasix] 3 tab PO DAILY 08/28/17 08/28/17 Tiotropium [Spiriva] 18 mcg IH 0700 08/28/17 08/28/17 Previous Rx's Medication Instructions Recorded Nystatin POWDER [Nystop] 1 appl TP BID #1 bottle 08/27/16 Diltiazem CD (24hr) [Cardizem CD] 180 mg PO DAILY #30 cap.er.24h 10/14/16 Lactobacillus [Culturelle] 1 each PO BID #30 cap.sprink 01/04/17 hydrALAZINE [HydrALAZINE] 25 mg PO QID #120 tablet 01/04/17 Umeclidinium Brm/Vilanterol Tr 1 each IH DAILY #1 blst.w.dev 06/07/17 [Anoro Ellipta 62.5-25 Mcg INH] predniSONE [PredniSONE] 10 mg PO DAILY 12 Days tablet 08/08/17 Loperamide [Imodium] 2 mg PO Q4HR PRN #30 capsule 09/10/17 metroNIDAZOLE [Flagyl] 250 mg PO TID #15 tablet 09/10/17 Allergies Allergy/AdvReac Type Severity Reaction Status Date / Time No Known Allergies Allergy Verified 08/23/16 19:46 Past Medical History - Past Medical History Medical history: Reports: arthritis, atrial fibrillation, CHF, COPD, DVT, diabetes, hyperlipidemia, hypertension, pulmonary embolus, renal disease Surgical history: Reports: appendectomy, Psychiatric history: Reports: anxiety, depression - Social History Smoking Status: Former smoker Smokeless Tobacco Status: No Alcohol use: Reports: none Drug use: Reports: none Physical Exam - General Limitations: no limitations General appearance: alert, in no apparent distress Course Vital Signs Temperature 98.5 F 10/28/17 20:20 Pulse Rate 141 10/28/17 20:20 Respiratory Rate 16 10/28/17 20:20 Blood Pressure 149/83 10/28/17 20:20 O2 Sat by Pulse Oximetry 87 10/28/17 20:20 Temperature 98.0 F 10/29/17 00:23 Pulse Rate 127 10/29/17 00:23 Respiratory Rate 18 10/29/17 00:23 Blood Pressure 159/78 10/29/17 00:23 O2 Sat by Pulse Oximetry 88 10/29/17 00:23 Oxygen Delivery Oxygen Delivery Nasal Cannula Medical Decision Making - Lab Data Result diagrams: 10/28/17 20:41 10/28/17 20:41 Lab Results 10/28/17 10/28/17 10/28/17 Range/Units 20:41 20:41 20:41 WBC 9.9 (4.3-11.1) K/mcL RBC 4.98 H (3.82-4.97) M/mcL Hgb 13.9 (11.5-15.4) g/dL Hct 43.2 (35.3-44.9) % MCV 86.7 (83.0-100.0) fL MCH 27.9 L (28.0-33.3) pg MCHC 32.2 (31.6-35.5) g/dL RDW 18.8 H (11.5-14.5) % Plt Count 156 (140-400) K/mcL MPV 10.4 (9.4-12.4) fL Immature Gran % 2.1 (0-4) % Seg Neutrophils % 82.2 % Lymphocytes % 10.6 % Monocytes % 4.8 % Eosinophils % 0.0 % Basophils % 0.3 % Neutrophils # 8.1 (1.6-8.9) K/mcL Lymphocytes # 1.1 (0.6-4.6) K/mcL Monocytes # 0.5 (0.0-1.3) K/mcL Eosinophils # 0.0 (0.0-0.6) K/mcL Basophils # 0.0 (0.0-0.2) K/mcL Nucleated RBCs/100 WBC 0.2 H (0) /100 WBC Sodium 136 (136-145) mEq/L Potassium 4.7 (3.5-5.1) mEq/L Chloride 90 L (98-107) mEq/L Carbon Dioxide 32 H (23-29) mEq/L BUN 41 H (8-23) mg/dL Creatinine 1.17 (0.60-1.20) mg/dL Est GFR ( Amer) 55 L (> 60) Est GFR (Non-Af Amer) 46 L (> 60) BUN/Creatinine Ratio 35 H (6-26) Glucose 218 H (70-105) mg/dL Calculated Osmolality 299 (280-300) Lactic Acid 4.2 H* (0.5-2.2) mmol/L Calcium 10.4 H (8.6-10.3) mg/dL Troponin I 0.03 (< 0.04) ng/mL B-Natriuretic Peptide (Less than 100) pg/mL Urine Color (Yellow) Urine Clarity (Clear) Urine pH (5.0-8.0) pH Units Ur Specific [place] (1.010-1.025) Urine Protein (Neg-Trace) mg/dL Urine Glucose (UA) (Normal) mg/dL Urine Ketones (Negative) mg/dL Urine Blood (Negative) Urine Nitrite (Negative) Urine Bilirubin (Negative) Urine Urobilinogen (Normal) mg/dL Ur Leukocyte Esterase (Negative) Urine Microscopic RBC (0-3) per hpf Urine Microscopic WBC (0-3) per hpf Ur Squamous Epith Cells (None-Few) per lpf Urine Bacteria (None-Few) per hpf Hyaline Casts (None-Few) per lpf Ur Culture Indicated? (NO) 10/28/17 10/28/17 10/28/17 Range/Units 20:41 21:28 22:26 WBC (4.3-11.1) K/mcL RBC (3.82-4.97) M/mcL Hgb (11.5-15.4) g/dL Hct (35.3-44.9) % MCV (83.0-100.0) fL MCH (28.0-33.3) pg MCHC (31.6-35.5) g/dL RDW (11.5-14.5) % Plt Count (140-400) K/mcL MPV (9.4-12.4) fL Immature Gran % (0-4) % Seg Neutrophils % % Lymphocytes % % Monocytes % % Eosinophils % % Basophils % % Neutrophils # (1.6-8.9) K/mcL Lymphocytes # (0.6-4.6) K/mcL Monocytes # (0.0-1.3) K/mcL Eosinophils # (0.0-0.6) K/mcL Basophils # (0.0-0.2) K/mcL Nucleated RBCs/100 WBC (0) /100 WBC Sodium (136-145) mEq/L Potassium (3.5-5.1) mEq/L Chloride (98-107) mEq/L Carbon Dioxide (23-29) mEq/L BUN (8-23) mg/dL Creatinine (0.60-1.20) mg/dL Est GFR ( Amer) (> 60) Est GFR (Non-Af Amer) (> 60) BUN/Creatinine Ratio (6-26) Glucose (70-105) mg/dL Calculated Osmolality (280-300) Lactic Acid 3.0 H (0.5-2.2) mmol/L Calcium (8.6-10.3) mg/dL Troponin I (< 0.04) ng/mL B-Natriuretic Peptide 156 H (Less than 100) pg/mL Urine Color Yellow (Yellow) Urine Clarity Cloudy A (Clear) Urine pH 7.5 (5.0-8.0) pH Units Ur Specific [place] 1.013 (1.010-1.025) Urine Protein Negative (Neg-Trace) mg/dL Urine Glucose (UA) Normal (Normal) mg/dL Urine Ketones Negative (Negative) mg/dL Urine Blood Negative (Negative) Urine Nitrite Negative (Negative) Urine Bilirubin Negative (Negative) Urine Urobilinogen Normal (Normal) mg/dL Ur Leukocyte Esterase Trace H (Negative) Urine Microscopic RBC 5-15 H (0-3) per hpf Urine Microscopic WBC 3-5 H (0-3) per hpf Ur Squamous Epith Cells Many H (None-Few) per lpf Urine Bacteria None Seen (None-Few) per hpf Hyaline Casts None Seen (None-Few) per lpf Ur Culture Indicated? NO. (NO) Critical Care Time Critical Care Time: Yes Total Critical Care Time: 35 Attestation: Critical care performed: Time is exclusive of separately billable procedures. Time includes: direct patient care, patient reassessment, coordination of patient care, interpretation of data (laboratory data, radiology data, and respiratory data), review of patient's medical records, medical consultation and documentation of patient care. Procedures included in critical care time: Procedures excluded from critical care time: Attestation Statement - Attestation Attestation: I, Fabrizio Zabala MD, personally evaluated this patient and discussed their management with the resident physician. I reviewed the resident's note and agree with the documented findings, medical decision making, and plan of care. 71-year-old female with history of COPD on home oxygen at 4 L by nasal cannula. She presents to the emergency department tonight with a complaint of increased shortness of breath over the past 3 days. There has been some increased cough with some sputum production. No fever. No chest pain. She has increased her oxygen at home to 5 or 6 L but continues to have shortness of breath primarily with any exertion. Daughter reports she is pretty comfortable at rest but even just transferring from her bedside commode to the bed she gets extremely out of breath. On examination patient is a well-developed obese elderly female in no acute distress. She is alert and oriented 3. There is no cyanosis or diaphoresis. Breath sounds are decreased bilaterally with a few bibasilar rales. No wheezes noted. Heart is tachycardic and regular. Abdomen is soft and nontender with normal bowel sounds. There is 1+ pedal edema bilaterally. EKG shows a sinus tachycardia with a rate of 132. Mild lateral ST segment depression. Chest x-ray shows bibasilar opacities which could possibly be pneumonia. Labs reviewed. Lactic acid 4.2 which qualifies patient for septic shock criteria although clinically I do not feel this patient is in septic shock at all. Patient is elderly and already has some pitting edema and I do not feel that she could tolerate a 3 L bolus of saline. We did go ahead and give her 1 L. Repeat lactic acid improved to 3.0. Blood cultures obtained and antibiotics initiated for healthcare associated pneumonia. Patient was last in the hospital 2 months ago. The hospitalist, Dr. Arshad, was consulted and accepted admission of the patient.
--- NOTE | 2017-10-28 23:10 | Emergency Department Note ---
Disposition Clinical Impression: Septic shock, Acute exacerbation of chronic obstructive airways disease Pneumonia Qualifiers: Pneumonia type: due to unspecified organism Laterality: unspecified laterality Lung location: unspecified part of lung Qualified Code(s): J18.9 - Pneumonia, unspecified organism Disposition: Admitted As Inpatient Condition: Fair Time of Disposition: 00:37 General Adult HPI - General Chief complaint: ED Shortness of Breath/Dyspnea Stated complaint: Sob / elevated HR Time Seen by Provider: 10/28/17 20:24 Source: patient Limitations: no limitations Nursing Notes Reviewed: Yes Vital Signs Reviewed: Yes - History of Present Illness HPI Narrative: 71-year-old female with significant past medical history of COPD, CHF and atrial fibrillation not on any anticoagulation due to a bleeding ulcer presenting to the emergency department for increased shortness of breath. Patient states for the past 3 days she has had increased shortness of breath and productive cough. Denies any fevers. Denies any chest pain. Patient states she is normally on 4-5 L nasal cannula oxygen and this has had increased at home. Her goal oxygen saturation is 88-92%. She follows with Dr. Owens for pulmonology. Patient denies any sick contacts. Pain Scale: 6 - Related Data Home Medications Medication Instructions Recorded Confirmed Albuterol Sulfate [Albuterol 2 puff IH Q4H PRN 08/23/16 08/28/17 Inhaler] Amitriptyline [Elavil] 10 mg PO HS 08/23/16 08/28/17 Ascorbate Calcium [Vitamin C] 500 mg PO DAILY 08/23/16 08/28/17 Vitamin B Complex 1 cap PO DAILY 08/23/16 08/28/17 Oxygen 5.5 l NS CONT 09/21/16 08/28/17 Calcium Carbonate [Calcium] 500 mg PO DAILY 12/06/16 08/28/17 Cholecalciferol (D-3) [Vitamin D] 1,000 unit PO DAILY 12/06/16 08/28/17 Docusate [Colace] 100 mg PO DAILY PRN 12/06/16 08/28/17 Ipratropium/Albuterol Neb [Duoneb] 3 ml IH BID 12/06/16 08/28/17 Multivit-Min/Iron/Folic/Lutein 1 tab PO DAILY 12/06/16 08/28/17 [Centrum Silver Women Tablet] Multivits Min/Iron/FA/Herb#186 1 tab PO DAILY 12/06/16 08/28/17 [Hair, Skin and Nails Caplet] Vitamin E Acid Succinate [Vitamin 400 unit PO DAILY 12/06/16 08/28/17 E] Acetaminophen w/Cod 300-30 mg 1 tab PO TID PRN 12/31/16 08/28/17 [Tylenol w/Codeine #3] Atorvastatin Calcium [Lipitor] 20 mg PO BID 06/04/17 08/28/17 Febuxostat [Uloric] 40 mg PO DAILY 06/04/17 08/28/17 Ferrous Gluconate 324 mg PO Q48H 06/04/17 08/28/17 GuaiFENesin ER [Mucinex] 600 mg PO BID PRN 06/04/17 08/28/17 Metoprolol [Lopressor] 50 mg PO BID 06/04/17 08/28/17 [place]-3 Fatty Acids [Fish Oil] 300 mg PO DAILY 06/04/17 08/28/17 Pantoprazole Sodium 40 mg PO BID 06/04/17 08/28/17 metFORMIN [Glucophage] 1,000 mg PO BID 06/04/17 08/28/17 Bumetanide [Bumex] 2 mg PO BID 08/02/17 08/28/17 Celecoxib [Celebrex] 100 mg PO DAILY 08/02/17 08/28/17 Fluticasone Propionate Nasal 50 mcg NS DAILY 08/02/17 08/28/17 [Flonase] Budesonide/Formoterol 160/4.5 1 puff IH AD 08/28/17 08/28/17 [Symbicort 160/4.5] Furosemide [Lasix] 3 tab PO DAILY 08/28/17 08/28/17 Tiotropium [Spiriva] 18 mcg IH 0700 08/28/17 08/28/17 Previous Rx's Medication Instructions Recorded Nystatin POWDER [Nystop] 1 appl TP BID #1 bottle 08/27/16 Diltiazem CD (24hr) [Cardizem CD] 180 mg PO DAILY #30 cap.er.24h 10/14/16 Lactobacillus [Culturelle] 1 each PO BID #30 cap.sprink 01/04/17 hydrALAZINE [HydrALAZINE] 25 mg PO QID #120 tablet 01/04/17 Umeclidinium Brm/Vilanterol Tr 1 each IH DAILY #1 blst.w.dev 06/07/17 [Anoro Ellipta 62.5-25 Mcg INH] predniSONE [PredniSONE] 10 mg PO DAILY 12 Days tablet 08/08/17 Loperamide [Imodium] 2 mg PO Q4HR PRN #30 capsule 09/10/17 metroNIDAZOLE [Flagyl] 250 mg PO TID #15 tablet 09/10/17 Allergies Allergy/AdvReac Type Severity Reaction Status Date / Time No Known Allergies Allergy Verified 08/23/16 19:46 All systems ED: reviewed and negative except as stated. Respiratory: Reports: cough, dyspnea, sputum production Past Medical History - Past Medical History Attestation: Yes The following information was validated with the patient. Medical history: Reports: arthritis, atrial fibrillation, CHF, COPD, DVT, diabetes, hyperlipidemia, hypertension, pulmonary embolus, renal disease Surgical history: Reports: appendectomy, Psychiatric history: Reports: anxiety, depression - Social History Smoking Status: Former smoker Smokeless Tobacco Status: No Alcohol use: Reports: none Drug use: Reports: none Physical Exam - General Limitations: no limitations General appearance: alert, in no apparent distress - Head Head exam: atraumatic, normocephalic, normal inspection - Eye Eye exam: Present: normal appearance. Absent: scleral icterus, conjunctival injection - ENT ENT exam: normal exam, mucous membranes moist - Neck Neck exam: Present: normal inspection, full ROM. Absent: tenderness, meningismus - Chest Chest inspection: Present: normal inspection, symmetric chest wall rise. Absent : tenderness, rash - Respiratory Respiratory exam: Present: other (Bilateral rhonchi) - Cardiovascular Cardiovascular exam: Present: normal rhythm, tachycardia - Abdominal Exam Abdominal exam: Present: soft, Non-Tender. Absent: distention, guarding, rebound - Extremities Exam Extremities exam: Present: normal inspection, full ROM - Neurological Exam Neurological exam: Present: alert, oriented X3 - Psychiatric Psychiatric exam: Present: normal affect, normal mood - Skin Skin exam: Present: warm, intact Course Course Narrative: 71-year-old female presenting with increased shortness of breath. Upon arrival patient is tachycardic in the 140s. She is also low 80s for pulse ox on her home oxygen. Patient was placed on 6 L nasal cannula and had oxygen saturation in the upper 80s and low 90s. Once patient was stabilized we performed laboratory analysis along with chest x-ray. We will also obtain an EKG. EKG showed tachycardia but otherwise within normal limits. Laboratory analysis did show elevated lactic acid of 4.2. Patient was only given 1 L of normal saline due to patient physical exam showing possible fluid overload including pitting edema and wet lung sounds. Patient's chest x-ray did show right lower lobe infiltrate. Due to patient's hospitalization at the end of July we will consider self-care for pneumonia. We will provide the patient with vancomycin, Levaquin and Zosyn. Patient is alert and oriented 3 in the room. Stable vital signs at time of admission. I spoke with the hospitalist on-call Dr. Arshad who agrees to accept the patient at this time. Vital Signs Temperature 98.5 F 10/28/17 20:20 Pulse Rate 141 10/28/17 20:20 Respiratory Rate 16 10/28/17 20:20 Blood Pressure 149/83 10/28/17 20:20 O2 Sat by Pulse Oximetry 87 10/28/17 20:20 Temperature 98.0 F 10/29/17 00:23 Pulse Rate 127 10/29/17 00:23 Respiratory Rate 18 10/29/17 00:23 Blood Pressure 159/78 10/29/17 00:23 O2 Sat by Pulse Oximetry 88 10/29/17 00:23 Oxygen Delivery Oxygen Delivery Nasal Cannula Medical Decision Making - Medical Records Medical records reviewed: Yes I reviewed the patient's medical records. - Lab Data Lab results reviewed: Yes I reviewed the patient's lab results. Result diagrams: 10/28/17 20:41 10/28/17 20:41 Lab Results 10/28/17 10/28/17 10/28/17 Range/Units 20:41 20:41 20:41 WBC 9.9 (4.3-11.1) K/mcL RBC 4.98 H (3.82-4.97) M/mcL Hgb 13.9 (11.5-15.4) g/dL Hct 43.2 (35.3-44.9) % MCV 86.7 (83.0-100.0) fL MCH 27.9 L (28.0-33.3) pg MCHC 32.2 (31.6-35.5) g/dL RDW 18.8 H (11.5-14.5) % Plt Count 156 (140-400) K/mcL MPV 10.4 (9.4-12.4) fL Immature Gran % 2.1 (0-4) % Seg Neutrophils % 82.2 % Lymphocytes % 10.6 % Monocytes % 4.8 % Eosinophils % 0.0 % Basophils % 0.3 % Neutrophils # 8.1 (1.6-8.9) K/mcL Lymphocytes # 1.1 (0.6-4.6) K/mcL Monocytes # 0.5 (0.0-1.3) K/mcL Eosinophils # 0.0 (0.0-0.6) K/mcL Basophils # 0.0 (0.0-0.2) K/mcL Nucleated RBCs/100 WBC 0.2 H (0) /100 WBC Sodium 136 (136-145) mEq/L Potassium 4.7 (3.5-5.1) mEq/L Chloride 90 L (98-107) mEq/L Carbon Dioxide 32 H (23-29) mEq/L BUN 41 H (8-23) mg/dL Creatinine 1.17 (0.60-1.20) mg/dL Est GFR ( Amer) 55 L (> 60) Est GFR (Non-Af Amer) 46 L (> 60) BUN/Creatinine Ratio 35 H (6-26) Glucose 218 H (70-105) mg/dL Calculated Osmolality 299 (280-300) Lactic Acid 4.2 H* (0.5-2.2) mmol/L Calcium 10.4 H (8.6-10.3) mg/dL Troponin I 0.03 (< 0.04) ng/mL B-Natriuretic Peptide (Less than 100) pg/mL Urine Color (Yellow) Urine Clarity (Clear) Urine pH (5.0-8.0) pH Units Ur Specific [place] (1.010-1.025) Urine Protein (Neg-Trace) mg/dL Urine Glucose (UA) (Normal) mg/dL Urine Ketones (Negative) mg/dL Urine Blood (Negative) Urine Nitrite (Negative) Urine Bilirubin (Negative) Urine Urobilinogen (Normal) mg/dL Ur Leukocyte Esterase (Negative) Urine Microscopic RBC (0-3) per hpf Urine Microscopic WBC (0-3) per hpf Ur Squamous Epith Cells (None-Few) per lpf Urine Bacteria (None-Few) per hpf Hyaline Casts (None-Few) per lpf Ur Culture Indicated? (NO) 10/28/17 10/28/17 10/28/17 Range/Units 20:41 21:28 22:26 WBC (4.3-11.1) K/mcL RBC (3.82-4.97) M/mcL Hgb (11.5-15.4) g/dL Hct (35.3-44.9) % MCV (83.0-100.0) fL MCH (28.0-33.3) pg MCHC (31.6-35.5) g/dL RDW (11.5-14.5) % Plt Count (140-400) K/mcL MPV (9.4-12.4) fL Immature Gran % (0-4) % Seg Neutrophils % % Lymphocytes % % Monocytes % % Eosinophils % % Basophils % % Neutrophils # (1.6-8.9) K/mcL Lymphocytes # (0.6-4.6) K/mcL Monocytes # (0.0-1.3) K/mcL Eosinophils # (0.0-0.6) K/mcL Basophils # (0.0-0.2) K/mcL Nucleated RBCs/100 WBC (0) /100 WBC Sodium (136-145) mEq/L Potassium (3.5-5.1) mEq/L Chloride (98-107) mEq/L Carbon Dioxide (23-29) mEq/L BUN (8-23) mg/dL Creatinine (0.60-1.20) mg/dL Est GFR ( Amer) (> 60) Est GFR (Non-Af Amer) (> 60) BUN/Creatinine Ratio (6-26) Glucose (70-105) mg/dL Calculated Osmolality (280-300) Lactic Acid 3.0 H (0.5-2.2) mmol/L Calcium (8.6-10.3) mg/dL Troponin I (< 0.04) ng/mL B-Natriuretic Peptide 156 H (Less than 100) pg/mL Urine Color Yellow (Yellow) Urine Clarity Cloudy A (Clear) Urine pH 7.5 (5.0-8.0) pH Units Ur Specific [place] 1.013 (1.010-1.025) Urine Protein Negative (Neg-Trace) mg/dL Urine Glucose (UA) Normal (Normal) mg/dL Urine Ketones Negative (Negative) mg/dL Urine Blood Negative (Negative) Urine Nitrite Negative (Negative) Urine Bilirubin Negative (Negative) Urine Urobilinogen Normal (Normal) mg/dL Ur Leukocyte Esterase Trace H (Negative) Urine Microscopic RBC 5-15 H (0-3) per hpf Urine Microscopic WBC 3-5 H (0-3) per hpf Ur Squamous Epith Cells Many H (None-Few) per lpf Urine Bacteria None Seen (None-Few) per hpf Hyaline Casts None Seen (None-Few) per lpf Ur Culture Indicated? NO. (NO) - Radiology Data Radiology results reviewed: Yes I reviewed the patient's radiology results. Chest X-Ray 10/28/17 20:33 IMPRESSION: 1. Bibasilar airspace opacities with small bilateral pleural effusions, left greater than right. The left base airspace opacity may in part be due to scarring with bronchiectasis, based on CT of the abdomen dated August 30, 2017. 2. Stable mild enlargement of the cardiac silhouette. D/ / Iam Hickey MD / Iam Hickey MD Interpreting Provider: Iam Hickey MD - EKG Data EKG #1 EKG attestation: Yes I reviewed and interpreted this EKG. EKG results narrative: Sinus tachycardia. 132 bpm. Left axis deviation. QRS 94, QTC 382. Significant artifact. No signs of acute ST segment elevation or ischemia Sepsis Reassessment Note - Evaluation Sepsis Screen: Sepsis Risk Current Stage of Sepsis: septic shock Possible Source of Sepsis: pulmonary - Focused Exam Date of Encounter: 10/28/17 Time of Encounter: 22:30 Vital Signs: Vital Signs Temp Pulse Resp BP Pulse Ox 10/28/17 22:17 92 22 147/60 92 10/28/17 21:17 88 10/28/17 21:04 91 29 148/75 92 10/28/17 20:28 89 10/28/17 20:20 98.5 F 141 16 149/83 87 Respiratory Exam: Present: rhonchi Cardiovascular Exam: Present: tachycardia Capillary Refill: < 2 seconds Peripheral Pulse Strength: 3+ normal Peripheral Pulse Location: Pedal Skin Exam: normal turgor
[2017-10-28] MEDS ORDERED: Naloxone 0.4 MG/ML INJ IVP PRN (23:12)
[2017-10-28] MEDS ORDERED: D5% in Water 1,000 ML IVC PRN (23:17)
[2017-10-28] MEDS ORDERED: *HR* Dextrose 50 % in Water (Syg) 50 ML SYRINGE IVP PRN (23:17)
[2017-10-28] MEDS ORDERED: Dextrose Gel 15 GM/37.5 ML TUBE PO PRN ×2 (23:17)
[2017-10-28] MEDS ORDERED: Albuterol 2.5 MG/3 ML NEBULIZER IH PRN (23:56)
[2017-10-29] MEDS: Ipratropium/Albuterol Neb 3 ML IH SCH ×5 (00:50→23:00)
[2017-10-29] MEDS: Insulin DETEMIR 100 UNIT/ML X5UNITS SQ SCH ×2 (02:45→22:12)
[2017-10-29 03:58] LABS: Basophils % 0.1 %; Hematocrit 35.7 % (35.3-44.9); Immature Granulocytes % 1.3 % (0-4); Lymphocytes # 0.3 K/mcL (0.6-4.6); Lymphocytes % 3.9 %; Mean Corpuscular HGB Conc 31.7 g/dL (31.6-35.5); Mean Corpuscular Hemoglobin 27.2 pg (28.0-33.3); Mean Platelet Volume 10.6 fL (9.4-12.4); Monocytes # 0.1 K/mcL (0.0-1.3); Monocytes % 1.5 %; Neutrophils # 7.7 K/mcL (1.6-8.9); Platelet Count 120 K/mcL (140-400); Red Blood Count 4.15 M/mcL (3.82-4.97); Red Cell Distribution Width 18.6 % (11.5-14.5); Segmented Neutrophils % 93.2 %
[2017-10-29 04:02] LABS: Hemoglobin 11.3 g/dL (11.5-15.4)
[2017-10-29 04:10] LABS: INR 1.1; Prothrombin Time 12.1 Seconds (9.4-12.1)
[2017-10-29 04:13] LABS: Activated Partial Thrombo Time 21.5 Seconds (26.0-36.0)
[2017-10-29 04:18] LABS: Calcium 9.2 mg/dL (8.6-10.3); Potassium 3.6 mEq/L (3.5-5.1)
[2017-10-29] MEDS: Piperacillin/Tazobactam 3.375 GM in 0.9 % Sodium Chloride Mini Bag 100 ML IVPB SCH ×3 (05:47→21:10)
[2017-10-29] MEDS: *HR* Heparin 5,000 UNIT/ML VIAL SQ SCH ×2 (05:48→17:29)
[2017-10-29] MEDS: MethylPREDNISolone 40 MG/ML VIAL IVP SCH ×3 (05:48→17:23)
[2017-10-29] MEDS ORDERED: Insulin LISPRO 300 UNITS/3 ML VIAL SQ SCH ×2 (07:30→08:38)
[2017-10-29] MEDS: hydrALAZINE 25 MG TABLET PO SCH ×4 (07:43→21:05)
[2017-10-29] MEDS: Diltiazem CD (24hr) 180 MG CAPSULE PO SCH (07:43)
[2017-10-29] MEDS ORDERED: Aminoglycoside Consult 1 EACH MC ONE (08:39)
[2017-10-29] MEDS ORDERED: Bumetanide 1 MG TABLET PO SCH (09:00)
[2017-10-29 10:15] LABS: ABG Base Excess 12 mEq/L (-2 to 3); ABG HCO3 35 mEq/L (21-27); ABG Oxygen Saturation 94 % (95-98); ABG PCO2 42 mmHg (35-45); ABG PH 7.54 pH Units (7.32-7.45); ABG PO2 62 mmHg (85-104); ABG TCO2 37 mEq/L (20-26)
[2017-10-29 10:40] LABS: Influenza A PCR Negative (Negative); Influenza B PCR Negative (Negative)
--- NOTE | 2017-10-29 12:45 | Electrocardiograph Report ---
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
--- NOTE | 2017-10-29 13:10 | Internal Med Progress Note ---
Date of Encounter: 10/29/17 Time of Encounter: 13:08 - Assessment and plan (1) Acute exacerbation of chronic obstructive airways disease Current Visit: Yes Status: Acute Assessment and plan: Likely secondary to underlying PNA continue systemic steroids, bronchodilator support O2 supplementation bipap support Lactic acidosis likely secondary to hypoxia, will closely monitor continue IV abx for PNA f/u blood and sputum cultures closely monitor O2 saturation, goal O2 sat: 88-92% (2) HCAP (healthcare-associated pneumonia) Current Visit: No Status: Acute Assessment and plan: as listed above (3) CHF (congestive heart failure) Current Visit: Yes Status: Chronic Assessment and plan: appears to be euvolemic no signs of acute decompensation will continue home meds monitor daily weights, fluid restriction diet Qualifiers: Heart failure type: diastolic Heart failure chronicity: chronic Qualified Code(s): I50.32 - Chronic diastolic (congestive) heart failure (4) CKD (chronic kidney disease) stage 3, GFR 30-59 ml/min Current Visit: No Status: Chronic Assessment and plan: Renal function at baseline continue to monitor renally dosing IV abx (5) DM type 2 (diabetes mellitus, type 2) Current Visit: Yes Status: Chronic Assessment and plan: continue sliding scale insulin algorithm monitor FS and BG ADA diet Qualifiers: Diabetes mellitus residential insulin use: without termite helper use Diabetes mellitus complication status: with hyperglycemia Qualified Code(s): E11.65 - Type 2 diabetes mellitus with hyperglycemia (6) DVT prophylaxis Current Visit: No Status: Acute Assessment and plan: Heparin SQ (7) Paroxysmal A-fib Current Visit: Yes Status: Chronic Assessment and plan: Rate controlled with diltiazem not on anticoagulation due to history of GI bleeds continue ASA (8) Obesity (BMI 30-39.9) Current Visit: Yes Status: Chronic (9) Hypertension Current Visit: Yes Status: Chronic Assessment and plan: BP within acceptable range continue home medications hydralazine 10mg IV q6h prn SBP>160 will closely monitor BP Qualifiers: Hypertension type: essential hypertension Qualified Code(s): I10 - Essential (primary) hypertension - Subjective Interval history: Pt seen and examined at bedside. Pt noted to have lactic acidosis likely secondary to hypoxia secondary to COPD exacerbation. Pt placed on bipap support and advised to continue with bipap support throughout the day with breaks for meals. - Constitutional Vitals: Temp Pulse Resp BP Pulse Ox 98.8 F 84 16 154/70 95 10/29/17 10:13 10/29/17 10:13 10/29/17 10:13 10/29/17 10:13 10/29/17 10:13 General appearance: Present: cooperative, A&O X 3, obese, answers questions appropriately - Head Head exam: Present: atraumatic, normocephalic - Eye Eye exam: Present: conjuntiva pink, sclera anicteric - Respiratory Respiratory exam: Present: decreased breath sounds (decreased air entry bilaterally ). Absent: respiratory distress, wheezes - Cardiovascular Cardiovascular exam: Present: RRR, +S1, +S2. Absent: diastolic murmur, gallop, rubs, systolic murmur - GI/Abdominal GI/Abdominal exam: Present: normal bowel sounds, soft, no peritoneal signs. Absent: distended, tenderness - Extremities Exam Extremities exam: Present: warm, radial pulses palpable and symmetrical. Absent : pedal edema, tenderness - Neurological Exam Neurological exam: Present: oriented X3 Internal Medicine: Result - Labs CBC & Chem 7: 10/29/17 03:28 10/29/17 03:28 Labs: Short CBC 10/29/17 Range/Units 03:28 WBC 8.2 (4.3-11.1) K/mcL Hgb 11.3 L D (11.5-15.4) g/dL Hct 35.7 (35.3-44.9) % Plt Count 120 L (140-400) K/mcL Neutrophils # 7.7 (1.6-8.9) K/mcL BMP 10/29/17 03:28 Sodium 139 Potassium 3.6 Chloride 94 L Carbon Dioxide 32 H BUN 39 H Creatinine 1.09 Glucose 319 H Calcium 9.2 - ABG Interpretation ABG results: ABG ABG pH 7.54 pH Units (7.32-7.45) H 10/29/17 10:10 ABG pCO2 42 mmHg (35-45) 10/29/17 10:10 ABG pO2 62 mmHg (85-104) L 10/29/17 10:10 ABG O2 Saturation 94 % (95-98) L 10/29/17 10:10 PT/INR, D-dimer PT 12.1 Seconds (9.4-12.1) 10/29/17 03:28 Consult Discharge Plan - Plan Referrals: Eduardo Hernandez Jr, MD [Primary Care Provider] -
[2017-10-29] MEDS ORDERED: Acetaminophen 325 MG TABLET PO PRN (14:37)
[2017-10-29] MEDS: Bumetanide 1 MG TABLET PO SCH (17:23)
[2017-10-29] MEDS: Insulin LISPRO 300 UNITS/3 ML VIAL SQ SCH ×2 (17:27→22:12)
[2017-10-29] MEDS ORDERED: Insulin DETEMIR 100 UNIT/ML X5UNITS SQ SCH (21:00)
[2017-10-29] MEDS: *HR* Acetaminophen w/Cod 300-30 mg 1 TAB TABLET PO PRN (21:04)
[2017-10-29] MEDS: Nystatin POWDER 30 GM BOTTLE TP SCH (21:11)
[2017-10-30] MEDS: MethylPREDNISolone 40 MG/ML VIAL IVP SCH ×3 (01:40→17:07)
[2017-10-30] MEDS: Ipratropium/Albuterol Neb 3 ML IH SCH ×4 (03:55→22:49)
[2017-10-30 04:23] LABS: Basophils % 0.1 %; Hematocrit 34.5 % (35.3-44.9); Hemoglobin 11.1 g/dL (11.5-15.4); Immature Granulocytes % 1.4 % (0-4); Lymphocytes # 0.6 K/mcL (0.6-4.6); Lymphocytes % 7.2 %; Mean Corpuscular HGB Conc 32.2 g/dL (31.6-35.5); Mean Corpuscular Volume 86.9 fL (83.0-100.0); Mean Platelet Volume 10.7 fL (9.4-12.4); Monocytes # 0.3 K/mcL (0.0-1.3); Monocytes % 3.6 %; Neutrophils # 7.6 K/mcL (1.6-8.9); Nucleated Red Blood Cells 0.2 /100 WBC (0); Platelet Count 122 K/mcL (140-400); Red Blood Count 3.97 M/mcL (3.82-4.97); Red Cell Distribution Width 18.6 % (11.5-14.5); Segmented Neutrophils % 87.7 %
[2017-10-30 04:50] LABS: Calcium 9.1 mg/dL (8.6-10.3); Magnesium 1.7 mg/dL (1.6-2.6); Phosphorous 3.9 mg/dL (2.7-4.5); Potassium 3.3 mEq/L (3.5-5.1)
[2017-10-30] MEDS: Piperacillin/Tazobactam 3.375 GM in 0.9 % Sodium Chloride Mini Bag 100 ML IVPB SCH ×3 (04:54→21:00)
[2017-10-30] MEDS: *HR* Heparin 5,000 UNIT/ML VIAL SQ SCH ×2 (04:54→17:07)
[2017-10-30] MEDS: Aspirin Enteric Coated 81 MG Tablet PO SCH (07:47)
[2017-10-30] MEDS: Diltiazem CD (24hr) 180 MG CAPSULE PO SCH (07:47)
[2017-10-30] MEDS: Bumetanide 1 MG TABLET PO SCH ×2 (07:47→17:08)
[2017-10-30] MEDS: hydrALAZINE 25 MG TABLET PO SCH ×4 (07:48→20:47)
[2017-10-30] MEDS: Insulin LISPRO 300 UNITS/3 ML VIAL SQ SCH ×4 (07:49→20:54)
[2017-10-30] MEDS: Nystatin POWDER 30 GM BOTTLE TP SCH ×2 (10:49→20:56)
--- NOTE | 2017-10-30 13:04 | Internal Med Progress Note ---
Date of Encounter: 10/30/17 Time of Encounter: 12:59 - Assessment and plan (1) Acute exacerbation of chronic obstructive airways disease Current Visit: Yes Status: Acute Assessment and plan: Likely secondary to underlying PNA continue systemic steroids, bronchodilator support (decrease solumedrol to 40mg IV q12h) O2 supplementation bipap support Lactic acidosis likely secondary to hypoxia, will closely monitor continue IV abx for PNA Blood cultures reported NGTD preliminary result Sputum cultures prelim reported Pseudomonas aeruginosa will d/c Vancomycin and continue Zosyn at this time closely monitor O2 saturation, goal O2 sat: 88-92% (2) HCAP (healthcare-associated pneumonia) Current Visit: No Status: Acute Assessment and plan: as listed above (3) CHF (congestive heart failure) Current Visit: Yes Status: Chronic Assessment and plan: appears to be euvolemic no signs of acute decompensation will continue home meds monitor daily weights, fluid restriction diet Qualifiers: Heart failure type: diastolic Heart failure chronicity: chronic Qualified Code(s): I50.32 - Chronic diastolic (congestive) heart failure (4) CKD (chronic kidney disease) stage 3, GFR 30-59 ml/min Current Visit: No Status: Chronic Assessment and plan: Renal function at baseline continue to monitor renally dosing IV abx (5) DM type 2 (diabetes mellitus, type 2) Current Visit: Yes Status: Chronic Assessment and plan: continue sliding scale insulin algorithm monitor FS and BG ADA diet adjusted basal insulin coverage as per the insulin requirements (Levemir 7units BID) Qualifiers: Diabetes mellitus jail insulin use: without superintendent container terminal use Diabetes mellitus complication status: with hyperglycemia Qualified Code(s): E11.65 - Type 2 diabetes mellitus with hyperglycemia (6) DVT prophylaxis Current Visit: No Status: Acute Assessment and plan: Heparin SQ (7) Paroxysmal A-fib Current Visit: Yes Status: Chronic Assessment and plan: Rate controlled with diltiazem not on anticoagulation due to history of GI bleeds continue ASA (8) Obesity (BMI 30-39.9) Current Visit: Yes Status: Chronic (9) Hypertension Current Visit: Yes Status: Chronic Assessment and plan: BP within acceptable range continue home medications hydralazine 10mg IV q6h prn SBP>160 will closely monitor BP Qualifiers: Hypertension type: essential hypertension Qualified Code(s): I10 - Essential (primary) hypertension (10) Hypokalemia Current Visit: Yes Status: Acute Assessment and plan: K supplemented continue to monitor electrolytes and replace as needed - Time Spent With Patient Total time spent is greater than 50% in coordination of care (as documented) at patient's floor/unit and/or counseling patient: - Subjective Interval history: Pt seen and examined at bedside. Resting in bed and reports of feeling better compared to previous day. currently saturating well on 6L NC which is pt's baseline oxygen level will continue bipap support at bedtime and as needed throughout the day pt encouraged to get out of bed to chair PT/OT evaluation requested. Noted to be hyperglycemic, levemir dosing adjusted - Constitutional Vitals: Temp Pulse Resp BP Pulse Ox 98.3 F 80 16 154/71 93 10/30/17 11:59 10/30/17 11:59 10/30/17 11:59 10/30/17 11:59 10/30/17 11:59 General appearance: Present: cooperative, A&O X 3, no acute distress, obese, answers questions appropriately - Head Head exam: Present: atraumatic, normocephalic - Eye Eye exam: Present: conjuntiva pink, sclera anicteric - Respiratory Respiratory exam: Absent: respiratory distress, wheezes (coarse breath sounds, equal air entry bilaterally ) - Cardiovascular Cardiovascular exam: Present: RRR, +S1, +S2. Absent: diastolic murmur, gallop, rubs, systolic murmur - GI/Abdominal GI/Abdominal exam: Present: normal bowel sounds, soft, no peritoneal signs. Absent: distended, tenderness - Extremities Exam Extremities exam: Present: warm, radial pulses palpable and symmetrical. Absent : calf tenderness, tenderness - Neurological Exam Neurological exam: Present: oriented X3 Internal Medicine: Result - Labs CBC & Chem 7: 10/30/17 04:05 10/30/17 04:05 Labs: Short CBC 10/30/17 Range/Units 04:05 WBC 8.6 (4.3-11.1) K/mcL Hgb 11.1 L (11.5-15.4) g/dL Hct 34.5 L (35.3-44.9) % Plt Count 122 L (140-400) K/mcL Neutrophils # 7.6 (1.6-8.9) K/mcL BMP 10/30/17 04:05 Sodium 139 Potassium 3.3 L Chloride 94 L Carbon Dioxide 37 H BUN 40 H Creatinine 1.16 Glucose 230 H Calcium 9.1 - ABG Interpretation ABG results: ABG ABG pH 7.54 pH Units (7.32-7.45) H 10/29/17 10:10 ABG pCO2 42 mmHg (35-45) 10/29/17 10:10 ABG pO2 62 mmHg (85-104) L 10/29/17 10:10 ABG O2 Saturation 94 % (95-98) L 10/29/17 10:10 PT/INR, D-dimer PT 12.1 Seconds (9.4-12.1) 10/29/17 03:28 Consult Discharge Plan - Plan Referrals: Eduardo Hernandez Jr, MD [Primary Care Provider] -
[2017-10-30] MEDS: Insulin DETEMIR 100 UNIT/ML X5UNITS SQ SCH ×2 (15:24→20:53)
[2017-10-30] MEDS: *HR* Acetaminophen w/Cod 300-30 mg 1 TAB TABLET PO PRN (20:52)
[2017-10-31 03:59] LABS: Basophils % 0.1 %; Hemoglobin 11.1 g/dL (11.5-15.4); Immature Granulocytes % 1.6 % (0-4); Lymphocytes # 0.6 K/mcL (0.6-4.6); Lymphocytes % 6.4 %; Mean Corpuscular HGB Conc 32.6 g/dL (31.6-35.5); Mean Corpuscular Hemoglobin 28.3 pg (28.0-33.3); Mean Corpuscular Volume 86.7 fL (83.0-100.0); Mean Platelet Volume 9.9 fL (9.4-12.4); Monocytes # 0.3 K/mcL (0.0-1.3); Monocytes % 3.8 %; Platelet Count 119 K/mcL (140-400); Red Blood Count 3.92 M/mcL (3.82-4.97); Red Cell Distribution Width 18.6 % (11.5-14.5); Segmented Neutrophils % 88.1 %
[2017-10-31 04:10] LABS: Calcium 8.9 mg/dL (8.6-10.3); Magnesium 1.6 mg/dL (1.6-2.6); Phosphorous 3.9 mg/dL (2.7-4.5); Potassium 3.1 mEq/L (3.5-5.1)
[2017-10-31] MEDS: Ipratropium/Albuterol Neb 3 ML IH SCH ×4 (04:41→22:16)
[2017-10-31] MEDS: *HR* Heparin 5,000 UNIT/ML VIAL SQ SCH ×2 (05:02→17:38)
[2017-10-31] MEDS: MethylPREDNISolone 40 MG/ML VIAL IVP SCH (05:03)
[2017-10-31] MEDS: Piperacillin/Tazobactam 3.375 GM in 0.9 % Sodium Chloride Mini Bag 100 ML IVPB SCH ×3 (05:04→21:10)
[2017-10-31] MEDS: Insulin LISPRO 300 UNITS/3 ML VIAL SQ SCH ×4 (07:58→21:10)
[2017-10-31] MEDS: Insulin DETEMIR 100 UNIT/ML X5UNITS SQ SCH ×2 (07:59→21:51)
[2017-10-31] MEDS: Diltiazem CD (24hr) 180 MG CAPSULE PO SCH (08:30)
[2017-10-31] MEDS: hydrALAZINE 25 MG TABLET PO SCH ×3 (08:30→21:09)
[2017-10-31] MEDS: Bumetanide 1 MG TABLET PO SCH ×2 (08:30→17:38)
[2017-10-31] MEDS: Aspirin Enteric Coated 81 MG Tablet PO SCH (08:30)
[2017-10-31] MEDS: Nystatin POWDER 30 GM BOTTLE TP SCH ×2 (08:31→21:09)
[2017-10-31 11:20] LABS: Adenovirus Not Detected (Not Detect); Bordetella Pertussis Not Detected (Not Detect); Chlamydophila pneumoniae Not Detected (Not Detect); Coronavirus 229E Not Detected (Not Detect); Coronavirus HKU1 Not Detected (Not Detect); Coronavirus NL63 Not Detected (Not Detect); Coronavirus OC43 Not Detected (Not Detect); Human Metapneumovirus Not Detected (Not Detect); Human Rhinovirus/Enterovirus Not Detected (Not Detect); Influenza A Subtype 2009 H1 Not Detected (Not Detect); Influenza A Untypeable Not Detected (Not Detect); Influenza B Not Detected (Not Detect); Parainfluenza Virus 1 Not Detected (Not Detect); Parainfluenza Virus 2 Not Detected (Not Detect); Parainfluenza Virus 3 Not Detected (Not Detect); Parainfluenza Virus 4 Not Detected (Not Detect); Respiratory Syncytial Virus Not Detected (Not Detect)
[2017-10-31 11:21] LABS: Mycoplasma pneumoniae Not Detected (Not Detect)
--- NOTE | 2017-10-31 12:27 | Internal Med Progress Note ---
Date of Encounter: 10/31/17 Time of Encounter: 12:25 - Assessment and plan (1) Acute exacerbation of chronic obstructive airways disease Current Visit: Yes Status: Acute Assessment and plan: Likely secondary to underlying PNA continue systemic steroids, bronchodilator support (d/c IV steroids and start Prednisone 60mg PO qd with long steroid taper) O2 supplementation bipap support Lactic acidosis resolved continue IV abx for PNA Blood cultures reported NGTD preliminary result Sputum cultures prelim reported Pseudomonas aeruginosa continue Zosyn at this time closely monitor O2 saturation, goal O2 sat: 88-92% (2) HCAP (healthcare-associated pneumonia) Current Visit: No Status: Acute Assessment and plan: as listed above (3) CHF (congestive heart failure) Current Visit: Yes Status: Chronic Assessment and plan: noted to have bibasilar rales, will give additional dose of bumex today will continue home meds monitor daily weights, fluid restriction diet Qualifiers: Heart failure type: diastolic Heart failure chronicity: chronic Qualified Code(s): I50.32 - Chronic diastolic (congestive) heart failure (4) CKD (chronic kidney disease) stage 3, GFR 30-59 ml/min Current Visit: No Status: Chronic Assessment and plan: Renal function at baseline continue to monitor renally dosing IV abx (5) DM type 2 (diabetes mellitus, type 2) Current Visit: Yes Status: Chronic Assessment and plan: continue sliding scale insulin algorithm monitor FS and BG ADA diet adjusted basal insulin coverage as per the insulin requirements Qualifiers: Diabetes mellitus half-way insulin use: without ocean transportation intermediary use Diabetes mellitus complication status: with hyperglycemia Qualified Code(s): E11.65 - Type 2 diabetes mellitus with hyperglycemia (6) DVT prophylaxis Current Visit: No Status: Acute Assessment and plan: Heparin SQ (7) Paroxysmal A-fib Current Visit: Yes Status: Chronic Assessment and plan: Rate controlled with diltiazem not on anticoagulation due to history of GI bleeds continue ASA (8) Obesity (BMI 30-39.9) Current Visit: Yes Status: Chronic (9) Hypertension Current Visit: Yes Status: Chronic Assessment and plan: Noted to be hypertensive Changed home dose of hydralazine to 50mg PO TID continue home medications hydralazine 10mg IV q6h prn SBP>160 will closely monitor BP Qualifiers: Hypertension type: essential hypertension Qualified Code(s): I10 - Essential (primary) hypertension (10) Hypokalemia Current Visit: Yes Status: Acute Assessment and plan: K supplemented continue to monitor electrolytes and replace as needed - Time Spent With Patient Total time spent is greater than 50% in coordination of care (as documented) at patient's floor/unit and/or counseling patient: - Subjective Interval history: Pt seen and examined at bedside. Sitting in bed and reports of feeling better compared to previous day. Currently saturating well on 6L NC. will continue bipap support at bedtime. Noted to have bibasilar crackles on auscultation and will give additional dose of bumex. PT/OT evaluation requested and patient states she only wants home health services regardless of the what the Physical therapist's recommendations are and will not go to ECF. will d/c IV steroids and start Prednisone 60mg PO with a long steroid taper - Constitutional Vitals: Temp Pulse Resp BP Pulse Ox 98.1 F 61 18 166/70 93 10/31/17 11:13 10/31/17 11:13 10/31/17 11:13 10/31/17 11:13 10/31/17 11:13 General appearance: Present: cooperative, A&O X 3, no acute distress, obese, answers questions appropriately - Head Head exam: Present: atraumatic, normocephalic - Eye Eye exam: Present: conjuntiva pink, sclera anicteric - Respiratory Respiratory exam: Present: decreased breath sounds. Absent: respiratory distress, wheezes (bibasilar crackles ) - Cardiovascular Cardiovascular exam: Present: RRR, +S1, +S2. Absent: diastolic murmur, gallop, rubs, systolic murmur - GI/Abdominal GI/Abdominal exam: Present: normal bowel sounds, soft. Absent: distended, tenderness - Extremities Exam Extremities exam: Present: warm, radial pulses palpable and symmetrical. Absent : calf tenderness Internal Medicine: Result - Labs CBC & Chem 7: 10/31/17 03:33 10/31/17 03:33 Labs: Short CBC 10/31/17 Range/Units 03:33 WBC 9.0 (4.3-11.1) K/mcL Hgb 11.1 L (11.5-15.4) g/dL Hct 34.0 L (35.3-44.9) % Plt Count 119 L (140-400) K/mcL Neutrophils # 8.0 (1.6-8.9) K/mcL BMP 10/31/17 03:33 Sodium 142 Potassium 3.1 L Chloride 97 L Carbon Dioxide 35 H BUN 45 H Creatinine 1.12 Glucose 191 H Calcium 8.9 - ABG Interpretation ABG results: ABG ABG pH 7.54 pH Units (7.32-7.45) H 10/29/17 10:10 ABG pCO2 42 mmHg (35-45) 10/29/17 10:10 ABG pO2 62 mmHg (85-104) L 10/29/17 10:10 ABG O2 Saturation 94 % (95-98) L 10/29/17 10:10 PT/INR, D-dimer PT 12.1 Seconds (9.4-12.1) 10/29/17 03:28 Consult Discharge Plan - Plan Referrals: Eduardo Hernandez Jr, MD [Primary Care Provider] -
[2017-10-31] MEDS ORDERED: Bumetanide 1 MG TABLET PO ONE (13:00)
[2017-10-31] MEDS: predniSONE 20 MG TABLET PO SCH (15:33)
[2017-10-31] MEDS: *HR* Acetaminophen w/Cod 300-30 mg 1 TAB TABLET PO PRN (21:51)
[2017-11-01] MEDS: Ipratropium/Albuterol Neb 3 ML IH SCH ×4 (03:53→22:38)
[2017-11-01 04:35] LABS: Basophils % 0.2 %; Hematocrit 35.7 % (35.3-44.9); Hemoglobin 11.5 g/dL (11.5-15.4); Immature Granulocytes % 2.2 % (0-4); Lymphocytes # 0.6 K/mcL (0.6-4.6); Lymphocytes % 7.7 %; Mean Corpuscular HGB Conc 32.2 g/dL (31.6-35.5); Mean Corpuscular Volume 87.1 fL (83.0-100.0); Monocytes # 0.4 K/mcL (0.0-1.3); Monocytes % 5.1 %; Neutrophils # 6.8 K/mcL (1.6-8.9); Nucleated Red Blood Cells 0.2 /100 WBC (0); Platelet Count 127 K/mcL (140-400); Red Cell Distribution Width 18.3 % (11.5-14.5); Segmented Neutrophils % 84.8 %
[2017-11-01 04:53] LABS: BUN/Creatinine Ratio 44 (6-26); Blood Urea Nitrogen 46 mg/dL (8-23); Calcium 8.7 mg/dL (8.6-10.3); Carbon Dioxide 36 mEq/L (23-29); Chloride 97 mEq/L (98-107); Glucose 162 mg/dL (70-105); Magnesium 1.7 mg/dL (1.6-2.6); Osmolality,Calculated 309 (280-300); Phosphorous 3.8 mg/dL (2.7-4.5); Sodium 142 mEq/L (136-145); eGFR For African Americans > 60 (> 60); eGFR For Non-African Americans 52 (> 60)
[2017-11-01] MEDS: *HR* Heparin 5,000 UNIT/ML VIAL SQ SCH ×2 (05:12→16:58)
[2017-11-01] MEDS: Piperacillin/Tazobactam 3.375 GM in 0.9 % Sodium Chloride Mini Bag 100 ML IVPB SCH (05:14)
[2017-11-01] MEDS: Insulin LISPRO 300 UNITS/3 ML VIAL SQ SCH ×4 (08:13→22:09)
[2017-11-01] MEDS: Bumetanide 1 MG TABLET PO SCH ×2 (09:00→15:49)
[2017-11-01] MEDS: hydrALAZINE 25 MG TABLET PO SCH ×3 (09:01→22:06)
[2017-11-01] MEDS: predniSONE 20 MG TABLET PO SCH (09:02)
[2017-11-01] MEDS: Aspirin Enteric Coated 81 MG Tablet PO SCH (09:02)
[2017-11-01] MEDS: Insulin DETEMIR 100 UNIT/ML X5UNITS SQ SCH ×2 (09:02→22:08)
[2017-11-01] MEDS: Diltiazem CD (24hr) 180 MG CAPSULE PO SCH (09:03)
[2017-11-01] MEDS: Nystatin POWDER 30 GM BOTTLE TP SCH ×2 (09:03→22:08)
[2017-11-01] MEDS: Cefepime HCl 2,000 MG in Water for inj. (sterile) 20 ML 20 ML IVP SCH ×2 (15:49→22:54)
--- NOTE | 2017-11-01 16:08 | Internal Med Progress Note ---
Date of Encounter: 11/01/17 Time of Encounter: 14:50 - Assessment and plan (1) Acute exacerbation of chronic obstructive airways disease Current Visit: Yes Status: Acute Assessment and plan: Likely secondary to underlying PNA continue systemic steroids, bronchodilator support (started Prednisone 60mg PO qd with long steroid taper) O2 supplementation bipap support Lactic acidosis resolved continue IV abx for PNA Blood cultures reported NGTD preliminary result Sputum cultures Pseudomonas aeruginosa, only sensitive to IV abx de-escalated to Cefepime (Day 5 of abx out of 7) closely monitor O2 saturation, goal O2 sat: 88-92% (2) HCAP (healthcare-associated pneumonia) Current Visit: No Status: Acute Assessment and plan: as listed above (3) CHF (congestive heart failure) Current Visit: Yes Status: Chronic Assessment and plan: will continue home meds monitor daily weights, fluid restriction diet Qualifiers: Heart failure type: diastolic Heart failure chronicity: chronic Qualified Code(s): I50.32 - Chronic diastolic (congestive) heart failure (4) CKD (chronic kidney disease) stage 3, GFR 30-59 ml/min Current Visit: No Status: Chronic Assessment and plan: Renal function at baseline continue to monitor renally dosing IV abx (5) DM type 2 (diabetes mellitus, type 2) Current Visit: Yes Status: Chronic Assessment and plan: continue sliding scale insulin algorithm monitor FS and BG ADA diet adjusted basal insulin coverage as per the insulin requirements Qualifiers: Diabetes mellitus fpc insulin use: without fpc use Diabetes mellitus complication status: with hyperglycemia Qualified Code(s): E11.65 - Type 2 diabetes mellitus with hyperglycemia (6) DVT prophylaxis Current Visit: No Status: Acute Assessment and plan: Heparin SQ (7) Paroxysmal A-fib Current Visit: Yes Status: Chronic Assessment and plan: Rate controlled with diltiazem not on anticoagulation due to history of GI bleeds continue ASA (8) Obesity (BMI 30-39.9) Current Visit: Yes Status: Chronic (9) Hypertension Current Visit: Yes Status: Chronic Assessment and plan: BP better controlled continue home meds hydralazine 10mg IV q6h prn SBP>160 will closely monitor BP Qualifiers: Hypertension type: essential hypertension Qualified Code(s): I10 - Essential (primary) hypertension (10) Hypokalemia Current Visit: Yes Status: Acute Assessment and plan: K supplemented continue to monitor electrolytes and replace as needed - Time Spent With Patient Total time spent is greater than 50% in coordination of care (as documented) at patient's floor/unit and/or counseling patient: - Subjective Interval history: Pt seen and examined with daughter present at bedside. Pt sitting in chair and reports of feeling better compared to previous day. Pt in agreement for being discharge to rehab and would like to go to [facility]. Msg conveyed to the supportive employment case manager. Pt constantly preoccupied with her O2 saturation numbers despite of her clinical status. I had an extensive conversation about patient's medical diagnosis and care plan and all of her questions were answered. Sputum cultures positive for Pseudomonas which is only sensitive to IV abx. Will treat for a total of 7 days (Day 12/03) - Constitutional Vitals: Temp Pulse Resp BP Pulse Ox 97.8 F 80 18 152/75 95 11/01/17 15:19 11/01/17 15:19 11/01/17 15:19 11/01/17 15:19 11/01/17 15:19 General appearance: Present: cooperative, A&O X 3, no acute distress, obese, answers questions appropriately - Head Head exam: Present: atraumatic, normocephalic - Eye Eye exam: Present: conjuntiva pink, sclera anicteric - Respiratory Respiratory exam: Absent: rales, respiratory distress, wheezes - Cardiovascular Cardiovascular exam: Present: RRR, +S1, +S2. Absent: diastolic murmur, gallop, rubs, systolic murmur - GI/Abdominal GI/Abdominal exam: Present: normal bowel sounds, soft, no peritoneal signs. Absent: distended, tenderness - Extremities Exam Extremities exam: Present: pedal edema, warm, radial pulses palpable and symmetrical. Absent: calf tenderness, tenderness - Neurological Exam Neurological exam: Present: oriented X3 Internal Medicine: Result - Labs CBC & Chem 7: 11/01/17 04:10 11/01/17 04:10 Labs: Short CBC 11/01/17 Range/Units 04:10 WBC 8.0 (4.3-11.1) K/mcL Hgb 11.5 (11.5-15.4) g/dL Hct 35.7 (35.3-44.9) % Plt Count 127 L (140-400) K/mcL Neutrophils # 6.8 (1.6-8.9) K/mcL BMP 11/01/17 04:10 Sodium 142 Potassium 3.0 L Chloride 97 L Carbon Dioxide 36 H BUN 46 H Creatinine 1.04 Glucose 162 H Calcium 8.7 - ABG Interpretation ABG results: ABG ABG pH 7.54 pH Units (7.32-7.45) H 10/29/17 10:10 ABG pCO2 42 mmHg (35-45) 10/29/17 10:10 ABG pO2 62 mmHg (85-104) L 10/29/17 10:10 ABG O2 Saturation 94 % (95-98) L 10/29/17 10:10 PT/INR, D-dimer PT 12.1 Seconds (9.4-12.1) 10/29/17 03:28 Consult Discharge Plan - Plan Referrals: Eduardo Hernandez Jr, MD [Primary Care Provider] - 11/08/17 11:00 am (Please follow up as schedule....)
[2017-11-01] MEDS: Sennosides/Docusate Sodium TABLET PO SCH (22:07)
[2017-11-01] MEDS: *HR* Acetaminophen w/Cod 300-30 mg 1 TAB TABLET PO PRN (22:55)
[2017-11-02] MEDS: *HR* Heparin 5,000 UNIT/ML VIAL SQ SCH ×2 (04:36→16:43)
[2017-11-02] MEDS: Ipratropium/Albuterol Neb 3 ML IH SCH ×4 (04:39→22:27)
[2017-11-02 05:25] LABS: Basophils % 0.2 %; Hematocrit 36.5 % (35.3-44.9); Hemoglobin 11.7 g/dL (11.5-15.4); Immature Granulocytes % 2.5 % (0-4); Lymphocytes % 12.4 %; Mean Corpuscular HGB Conc 32.1 g/dL (31.6-35.5); Mean Corpuscular Hemoglobin 28.1 pg (28.0-33.3); Mean Corpuscular Volume 87.5 fL (83.0-100.0); Mean Platelet Volume 10.3 fL (9.4-12.4); Monocytes # 0.5 K/mcL (0.0-1.3); Monocytes % 5.8 %; Neutrophils # 6.6 K/mcL (1.6-8.9); Platelet Count 143 K/mcL (140-400); Red Blood Count 4.17 M/mcL (3.82-4.97); Red Cell Distribution Width 18.4 % (11.5-14.5); Segmented Neutrophils % 79.1 %
[2017-11-02 05:34] LABS: BUN/Creatinine Ratio 40 (6-26); Blood Urea Nitrogen 41 mg/dL (8-23); Calcium 8.8 mg/dL (8.6-10.3); Carbon Dioxide 33 mEq/L (23-29); Chloride 99 mEq/L (98-107); Glucose 126 mg/dL (70-105); Magnesium 1.7 mg/dL (1.6-2.6); Osmolality,Calculated 308 (280-300); Potassium 3.2 mEq/L (3.5-5.1); Sodium 143 mEq/L (136-145); eGFR For African Americans > 60 (> 60); eGFR For Non-African Americans 53 (> 60)
[2017-11-02] MEDS: Insulin LISPRO 300 UNITS/3 ML VIAL SQ SCH ×4 (07:48→21:02)
[2017-11-02] MEDS: hydrALAZINE 25 MG TABLET PO SCH ×3 (09:30→21:01)
[2017-11-02] MEDS: Aspirin Enteric Coated 81 MG Tablet PO SCH (09:31)
[2017-11-02] MEDS: predniSONE 20 MG TABLET PO SCH (09:31)
[2017-11-02] MEDS: Sennosides/Docusate Sodium TABLET PO SCH ×2 (09:31→21:01)
[2017-11-02] MEDS: Diltiazem CD (24hr) 180 MG CAPSULE PO SCH (09:32)
[2017-11-02] MEDS: Bumetanide 1 MG TABLET PO SCH ×2 (09:32→16:42)
[2017-11-02] MEDS: Insulin DETEMIR 100 UNIT/ML X5UNITS SQ SCH ×2 (09:33→21:02)
[2017-11-02] MEDS: Cefepime HCl 2,000 MG in Water for inj. (sterile) 20 ML 20 ML IVP SCH ×3 (09:34→23:42)
[2017-11-02] MEDS: Nystatin POWDER 30 GM BOTTLE TP SCH ×2 (10:04→21:02)
--- NOTE | 2017-11-02 13:49 | Internal Med Progress Note ---
Date of Encounter: 11/02/17 Time of Encounter: 13:47 - Assessment and plan (1) Acute exacerbation of chronic obstructive airways disease Current Visit: Yes Status: Acute Assessment and plan: Likely secondary to underlying PNA continue systemic steroids, bronchodilator support (continue Prednisone 60mg PO qd with long steroid taper) O2 supplementation bipap support Lactic acidosis resolved continue IV abx for PNA Blood cultures reported NGTD preliminary result Sputum cultures Pseudomonas aeruginosa, only sensitive to IV abx de-escalated to Cefepime (Day 6 of abx out of 7) closely monitor O2 saturation, goal O2 sat: 88-92% (2) HCAP (healthcare-associated pneumonia) Current Visit: No Status: Acute Assessment and plan: as listed above (3) CHF (congestive heart failure) Current Visit: Yes Status: Chronic Assessment and plan: will continue home meds monitor daily weights, fluid restriction diet Qualifiers: Heart failure type: diastolic Heart failure chronicity: chronic Qualified Code(s): I50.32 - Chronic diastolic (congestive) heart failure (4) CKD (chronic kidney disease) stage 3, GFR 30-59 ml/min Current Visit: No Status: Chronic Assessment and plan: Renal function at baseline continue to monitor renally dosing IV abx (5) DM type 2 (diabetes mellitus, type 2) Current Visit: Yes Status: Chronic Assessment and plan: continue sliding scale insulin algorithm monitor FS and BG ADA diet adjusted basal insulin coverage as per the insulin requirements Qualifiers: Diabetes mellitus chcf insulin use: without chcf use Diabetes mellitus complication status: with hyperglycemia Qualified Code(s): E11.65 - Type 2 diabetes mellitus with hyperglycemia (6) DVT prophylaxis Current Visit: No Status: Acute Assessment and plan: Heparin SQ (7) Paroxysmal A-fib Current Visit: Yes Status: Chronic Assessment and plan: Rate controlled with diltiazem not on anticoagulation due to history of GI bleeds continue ASA (8) Hypertension Current Visit: Yes Status: Chronic Assessment and plan: BP better controlled continue home meds hydralazine 10mg IV q6h prn SBP>160 will closely monitor BP Qualifiers: Hypertension type: essential hypertension Qualified Code(s): I10 - Essential (primary) hypertension (9) Hypokalemia Current Visit: Yes Status: Acute Assessment and plan: K supplemented continue to monitor electrolytes and replace as needed (10) Obesity (BMI 30-39.9) Current Visit: Yes Status: Chronic - Time Spent With Patient Total time spent is greater than 50% in coordination of care (as documented) at patient's floor/unit and/or counseling patient: - Subjective Interval history: Pt seen and examined at bedside. Reports of not being able to sleep overnight. Saturating well on nasal cannula. protective services case worker on board for ECF placement. Sputum cultures positive for Pseudomonas which is only sensitive to IV abx. Will treat for a total of 7 days (Day 12/03) tentative d/c to ECF in am pending placement and after completion of iV abx - Constitutional Vitals: Temp Pulse Resp BP Pulse Ox 98.3 F 80 17 158/61 92 11/02/17 11:03 11/02/17 07:30 11/02/17 11:03 11/02/17 11:03 11/02/17 11:03 General appearance: Present: cooperative, A&O X 3, no acute distress, obese, answers questions appropriately - Head Head exam: Present: atraumatic, normocephalic - Eye Eye exam: Present: conjuntiva pink, sclera anicteric - Respiratory Respiratory exam: Absent: rales, respiratory distress, wheezes - Cardiovascular Cardiovascular exam: Present: RRR, +S1, +S2. Absent: diastolic murmur, gallop, rubs, systolic murmur - GI/Abdominal GI/Abdominal exam: Present: normal bowel sounds, soft, no peritoneal signs. Absent: distended, tenderness - Extremities Exam Extremities exam: Present: pedal edema, warm, radial pulses palpable and symmetrical. Absent: calf tenderness, tenderness - Neurological Exam Neurological exam: Present: oriented X3 Internal Medicine: Result - Labs CBC & Chem 7: 11/02/17 04:00 11/02/17 04:00 Labs: Short CBC 11/02/17 Range/Units 04:00 WBC 8.3 (4.3-11.1) K/mcL Hgb 11.7 (11.5-15.4) g/dL Hct 36.5 (35.3-44.9) % Plt Count 143 (140-400) K/mcL Neutrophils # 6.6 (1.6-8.9) K/mcL BMP 11/02/17 04:00 Sodium 143 Potassium 3.2 L Chloride 99 Carbon Dioxide 33 H BUN 41 H Creatinine 1.02 Glucose 126 H Calcium 8.8 - ABG Interpretation ABG results: ABG ABG pH 7.54 pH Units (7.32-7.45) H 10/29/17 10:10 ABG pCO2 42 mmHg (35-45) 10/29/17 10:10 ABG pO2 62 mmHg (85-104) L 10/29/17 10:10 ABG O2 Saturation 94 % (95-98) L 10/29/17 10:10 PT/INR, D-dimer PT 12.1 Seconds (9.4-12.1) 10/29/17 03:28 Consult Discharge Plan - Plan Referrals: Eduardo Hernandez Jr, MD [Primary Care Provider] - 11/08/17 11:00 am (Please follow up as schedule....)
[2017-11-02] MEDS: *HR* Acetaminophen w/Cod 300-30 mg 1 TAB TABLET PO PRN (21:01)
[2017-11-03 04:07] LABS: Basophils % 0.5 %; Eosinophils % 0.1 %; Hematocrit 35.7 % (35.3-44.9); Hemoglobin 11.5 g/dL (11.5-15.4); Immature Granulocytes % 3.4 % (0-4); Lymphocytes # 1.1 K/mcL (0.6-4.6); Lymphocytes % 12.5 %; Mean Corpuscular HGB Conc 32.2 g/dL (31.6-35.5); Mean Corpuscular Volume 86.9 fL (83.0-100.0); Mean Platelet Volume 10.3 fL (9.4-12.4); Monocytes # 0.5 K/mcL (0.0-1.3); Monocytes % 6.3 %; Neutrophils # 6.6 K/mcL (1.6-8.9); Nucleated Red Blood Cells 0.2 /100 WBC (0); Platelet Count 136 K/mcL (140-400); Red Blood Count 4.11 M/mcL (3.82-4.97); Red Cell Distribution Width 18.5 % (11.5-14.5); Segmented Neutrophils % 77.2 %
[2017-11-03 04:25] LABS: BUN/Creatinine Ratio 49 (6-26); Blood Urea Nitrogen 41 mg/dL (8-23); Calcium 8.8 mg/dL (8.6-10.3); Carbon Dioxide 35 mEq/L (23-29); Chloride 100 mEq/L (98-107); Glucose 111 mg/dL (70-105); Magnesium 1.8 mg/dL (1.6-2.6); Osmolality,Calculated 307 (280-300); Phosphorous 2.9 mg/dL (2.7-4.5); Potassium 3.6 mEq/L (3.5-5.1); Sodium 143 mEq/L (136-145); eGFR For African Americans > 60 (> 60); eGFR For Non-African Americans > 60 (> 60)
[2017-11-03] MEDS: Ipratropium/Albuterol Neb 3 ML IH SCH ×4 (04:33→22:08)
[2017-11-03] MEDS: *HR* Heparin 5,000 UNIT/ML VIAL SQ SCH ×2 (04:52→16:49)
[2017-11-03] MEDS: Insulin LISPRO 300 UNITS/3 ML VIAL SQ SCH ×4 (08:04→21:14)
[2017-11-03] MEDS: Aspirin Enteric Coated 81 MG Tablet PO SCH (08:24)
[2017-11-03] MEDS: Bumetanide 1 MG TABLET PO SCH ×2 (08:24→16:49)
[2017-11-03] MEDS: predniSONE 20 MG TABLET PO SCH (08:24)
[2017-11-03] MEDS: Insulin DETEMIR 100 UNIT/ML X5UNITS SQ SCH ×2 (08:24→21:33)
[2017-11-03] MEDS: Sennosides/Docusate Sodium TABLET PO SCH ×2 (08:24→21:15)
[2017-11-03] MEDS: hydrALAZINE 25 MG TABLET PO SCH ×3 (08:24→21:15)
[2017-11-03] MEDS: Diltiazem CD (24hr) 180 MG CAPSULE PO SCH (08:24)
[2017-11-03] MEDS: Cefepime HCl 2,000 MG in Water for inj. (sterile) 20 ML 20 ML IVP SCH ×2 (08:25→15:24)
[2017-11-03] MEDS: Nystatin POWDER 30 GM BOTTLE TP SCH ×2 (12:19→21:17)
--- NOTE | 2017-11-03 13:02 | Internal Med Progress Note ---
Date of Encounter: 11/03/17 Time of Encounter: 13:00 - Assessment and plan (1) Acute exacerbation of chronic obstructive airways disease Current Visit: Yes Status: Acute Assessment and plan: Likely secondary to underlying PNA continue systemic steroids, bronchodilator support (continue Prednisone 60mg PO qd with long steroid taper) O2 supplementation bipap support Lactic acidosis resolved continue IV abx for PNA Blood cultures reported NGTD preliminary result Sputum cultures Pseudomonas aeruginosa, only sensitive to IV abx de-escalated to Cefepime (Day 7 of abx out of 7) closely monitor O2 saturation, goal O2 sat: 88-92% mucinex dm for cough (2) HCAP (healthcare-associated pneumonia) Current Visit: No Status: Acute Assessment and plan: as listed above (3) CHF (congestive heart failure) Current Visit: Yes Status: Chronic Assessment and plan: will continue home meds monitor daily weights, fluid restriction diet Qualifiers: Heart failure type: diastolic Heart failure chronicity: chronic Qualified Code(s): I50.32 - Chronic diastolic (congestive) heart failure (4) CKD (chronic kidney disease) stage 3, GFR 30-59 ml/min Current Visit: No Status: Chronic Assessment and plan: Renal function at baseline continue to monitor renally dosing IV abx (5) DM type 2 (diabetes mellitus, type 2) Current Visit: Yes Status: Chronic Assessment and plan: continue sliding scale insulin algorithm monitor FS and BG ADA diet adjusted basal insulin coverage as per the insulin requirements Qualifiers: Diabetes mellitus jail insulin use: without jail use Diabetes mellitus complication status: with hyperglycemia Qualified Code(s): E11.65 - Type 2 diabetes mellitus with hyperglycemia (6) DVT prophylaxis Current Visit: No Status: Acute Assessment and plan: Heparin SQ (7) Paroxysmal A-fib Current Visit: Yes Status: Chronic Assessment and plan: Rate controlled with diltiazem not on anticoagulation due to history of GI bleeds continue ASA (8) Hypertension Current Visit: Yes Status: Chronic Assessment and plan: BP better controlled continue home meds hydralazine 10mg IV q6h prn SBP>160 will closely monitor BP Qualifiers: Hypertension type: essential hypertension Qualified Code(s): I10 - Essential (primary) hypertension (9) Hypokalemia Current Visit: Yes Status: Resolved Assessment and plan: resolved continue to monitor electrolytes and replace as needed (10) Obesity (BMI 30-39.9) Current Visit: Yes Status: Chronic - Time Spent With Patient Total time spent is greater than 50% in coordination of care (as documented) at patient's floor/unit and/or counseling patient: - Subjective Interval history: Pt seen and examined at bedside.Resting in bed and reports of having difficulty bringing up sputum and feels very congested. Noted to have gurgling with breathing. No overnight events reported. Will obtain respiratory therapist evaluation for pulm toileting. started Mucinex DM PO BID tentative d/c to ECF in am Sputum cultures positive for Pseudomonas which is only sensitive to IV abx. Will treat for a total of 7 days (Day 02/02) tentative d/c to ECF in am pending placement and after completion of iV abx - Constitutional Vitals: Temp Pulse Resp BP Pulse Ox 97.8 F 83 18 143/81 91 11/03/17 12:06 11/03/17 12:06 11/03/17 12:06 11/03/17 12:06 11/03/17 12:06 General appearance: Present: cooperative, A&O X 3, no acute distress, obese, answers questions appropriately - Head Head exam: Present: atraumatic, normocephalic - Eye Eye exam: Present: conjuntiva pink, sclera anicteric - Respiratory Respiratory exam: Absent: respiratory distress, wheezes (coarse breath sounds) - Cardiovascular Cardiovascular exam: Present: RRR, +S1, +S2. Absent: diastolic murmur, gallop, rubs, systolic murmur - GI/Abdominal GI/Abdominal exam: Present: normal bowel sounds, soft. Absent: tenderness - Extremities Exam Extremities exam: Present: warm, radial pulses palpable and symmetrical. Absent : calf tenderness, tenderness - Neurological Exam Neurological exam: Present: oriented X3 Internal Medicine: Result - Labs CBC & Chem 7: 11/03/17 03:53 11/03/17 03:53 Labs: Short CBC 11/03/17 Range/Units 03:53 WBC 8.6 (4.3-11.1) K/mcL Hgb 11.5 (11.5-15.4) g/dL Hct 35.7 (35.3-44.9) % Plt Count 136 L (140-400) K/mcL Neutrophils # 6.6 (1.6-8.9) K/mcL BMP 11/03/17 03:53 Sodium 143 Potassium 3.6 Chloride 100 Carbon Dioxide 35 H BUN 41 H Creatinine 0.83 Glucose 111 H Calcium 8.8 - ABG Interpretation ABG results: ABG ABG pH 7.54 pH Units (7.32-7.45) H 10/29/17 10:10 ABG pCO2 42 mmHg (35-45) 10/29/17 10:10 ABG pO2 62 mmHg (85-104) L 10/29/17 10:10 ABG O2 Saturation 94 % (95-98) L 10/29/17 10:10 PT/INR, D-dimer PT 12.1 Seconds (9.4-12.1) 10/29/17 03:28 Consult Discharge Plan - Plan Referrals: Eduardo Hernandez Jr, MD [Primary Care Provider] - 11/08/17 11:00 am (Please follow up as schedule....)
[2017-11-03] MEDS: GuaiFENesin/Dextromethorphan TABLET PO SCH ×2 (15:24→21:15)
[2017-11-03] MEDS ORDERED: Bisacodyl 10 MG RECTAL SUPPOSITORY RC PRN (16:56)
[2017-11-03] MEDS: *HR* Acetaminophen w/Cod 300-30 mg 1 TAB TABLET PO PRN (22:08)
[2017-11-04] MEDS: Cefepime HCl 2,000 MG in Water for inj. (sterile) 20 ML 20 ML IVP SCH ×2 (00:22→09:47)
[2017-11-04] MEDS: Ipratropium/Albuterol Neb 3 ML IH SCH ×3 (04:57→15:31)
[2017-11-04 05:27] LABS: Basophils % 0.4 %; Eosinophils % 0.1 %; Hematocrit 35.4 % (35.3-44.9); Hemoglobin 11.3 g/dL (11.5-15.4); Immature Granulocytes % 2.5 % (0-4); Lymphocytes # 1.2 K/mcL (0.6-4.6); Lymphocytes % 15.1 %; Mean Corpuscular HGB Conc 31.9 g/dL (31.6-35.5); Mean Corpuscular Hemoglobin 27.3 pg (28.0-33.3); Mean Corpuscular Volume 85.5 fL (83.0-100.0); Mean Platelet Volume 10.3 fL (9.4-12.4); Monocytes # 0.5 K/mcL (0.0-1.3); Monocytes % 6.3 %; Neutrophils # 6.2 K/mcL (1.6-8.9); Platelet Count 138 K/mcL (140-400); Red Blood Count 4.14 M/mcL (3.82-4.97); Red Cell Distribution Width 18.5 % (11.5-14.5); Segmented Neutrophils % 75.6 %
[2017-11-04 05:33] LABS: BUN/Creatinine Ratio 43 (6-26); Blood Urea Nitrogen 41 mg/dL (8-23); Calcium 8.8 mg/dL (8.6-10.3); Carbon Dioxide 33 mEq/L (23-29); Chloride 98 mEq/L (98-107); Glucose 144 mg/dL (70-105); Magnesium 1.7 mg/dL (1.6-2.6); Osmolality,Calculated 303 (280-300); Potassium 3.1 mEq/L (3.5-5.1); Sodium 140 mEq/L (136-145); eGFR For African Americans > 60 (> 60); eGFR For Non-African Americans 57 (> 60)
[2017-11-04] MEDS: GuaiFENesin/Dextromethorphan TABLET PO SCH (09:44)
[2017-11-04] MEDS: Bumetanide 1 MG TABLET PO SCH (09:45)
[2017-11-04] MEDS: Diltiazem CD (24hr) 180 MG CAPSULE PO SCH (09:45)
[2017-11-04] MEDS: hydrALAZINE 25 MG TABLET PO SCH ×2 (09:45→15:14)
[2017-11-04] MEDS: Sennosides/Docusate Sodium TABLET PO SCH (09:45)
[2017-11-04] MEDS: Aspirin Enteric Coated 81 MG Tablet PO SCH (09:45)
[2017-11-04] MEDS: predniSONE 20 MG TABLET PO SCH (09:45)
[2017-11-04] MEDS: Insulin DETEMIR 100 UNIT/ML X5UNITS SQ SCH (09:46)
[2017-11-04] MEDS: Insulin LISPRO 300 UNITS/3 ML VIAL SQ SCH ×2 (09:50→11:53)
[2017-11-04] MEDS: *HR* Heparin 5,000 UNIT/ML VIAL SQ SCH (09:50)
--- NOTE | 2017-11-04 12:26 | Discharge Summary ---
- NOTES TO OUTPATIENT PROVIDER Notes to Outpatient Provider: Pt on a steroid taper,and was on chronic steroid therapy daily. Please adjust her steroid dose accordingly Date of Encounter: 11/04/17 Time of Encounter: 12:24 - Discharge Diagnosis (1) Acute exacerbation of chronic obstructive airways disease Priority: Primary (.) Status: Acute (2) HCAP (healthcare-associated pneumonia) Priority: Primary Status: Acute (3) CHF (congestive heart failure) Priority: Secondary Status: Chronic Qualifiers: Heart failure type: diastolic Heart failure chronicity: chronic Qualified Code(s): I50.32 - Chronic diastolic (congestive) heart failure (4) CKD (chronic kidney disease) stage 3, GFR 30-59 ml/min Priority: Secondary Status: Chronic (5) DM type 2 (diabetes mellitus, type 2) Priority: Secondary Status: Chronic Qualifiers: Diabetes mellitus custodial insulin use: without custodial use Diabetes mellitus complication status: with hyperglycemia Qualified Code(s): E11.65 - Type 2 diabetes mellitus with hyperglycemia (6) DVT prophylaxis Priority: Secondary Status: Acute (7) Paroxysmal A-fib Priority: Secondary Status: Chronic (8) Hypertension Priority: Secondary Status: Chronic Qualifiers: Hypertension type: essential hypertension Qualified Code(s): I10 - Essential (primary) hypertension (9) Hypokalemia Priority: Secondary Status: Resolved (10) Obesity (BMI 30-39.9) Priority: Secondary Status: Chronic Hospital course: Ms. Pollack is a 71 year old female with PMH Of COPD on LTOT, CHF, DM, obesity who was admitted for acute respiratory distress secondary to COPD exacerbation and HCAP. She was started on empiric IV abx, IV steroids, and bronchodilator support. She is on bipap support at home which was continued. Her sputum cultures were positive for pseudomonas which was only sensitive to IV abx. Pt finished 7 days of IV abx. She was evaluated by physical therapy and ECF was recommended. She is currently back to her baseline respiratory status and will be discharged to ECF today. Pt and family present present at bedside, both in agreement of the discharge care and plan. Discharge discussed with: patient, family, nurse - Time Spent with Patient Total time spent providing and/or coordinating discharge services: Greater than 30 minutes - Discharge Medications Home Medications: Amitriptyline [Elavil] 10 mg PO HS 08/23/16 [History] Ascorbate Calcium [Vitamin C] 500 mg PO DAILY 08/23/16 [History] Vitamin B Complex 1 cap PO DAILY 08/23/16 [History] Oxygen 5.5 l NS CONT 09/21/16 [History] Diltiazem CD (24hr) [Cardizem CD] 180 mg PO DAILY #30 cap.er.24h 10/14/16 [Rx] Calcium Carbonate [Calcium] 500 mg PO DAILY 12/06/16 [History] Cholecalciferol (D-3) [Vitamin D] 1,000 unit PO DAILY 12/06/16 [History] Docusate [Colace] 100 mg PO DAILY PRN 12/06/16 [History] Ipratropium/Albuterol Neb [Duoneb] 3 ml IH BID 12/06/16 [History] Multivits Min/Iron/FA/Herb#186 [Hair, Skin and Nails Caplet] 1 tab PO DAILY 05/15 [History] Vitamin E Acid Succinate [Vitamin E] 400 unit PO DAILY 12/06/16 [History] Acetaminophen w/Cod 300-30 mg [Tylenol w/Codeine #3] 1 tab PO TID PRN 12/31/16 [ History] Lactobacillus [Culturelle] 1 each PO BID #30 cap.sprink 01/04/17 [Rx] Atorvastatin Calcium [Lipitor] 20 mg PO BID 06/04/17 [History] Febuxostat [Uloric] 40 mg PO DAILY 06/04/17 [History] Ferrous Gluconate 324 mg PO Q48H 06/04/17 [History] Metoprolol [Lopressor] 50 mg PO BID 06/04/17 [History] [place]-3 Fatty Acids [Fish Oil] 300 mg PO DAILY 06/04/17 [History] Pantoprazole Sodium 40 mg PO BID 06/04/17 [History] metFORMIN [Glucophage] 1,000 mg PO BID 06/04/17 [History] Umeclidinium Brm/Vilanterol Tr [Anoro Ellipta 62.5-25 Mcg INH] 1 each IH DAILY # 1 blst.w.dev 06/07/17 [Rx] Bumetanide [Bumex] 2 mg PO BID 08/02/17 [History] Celecoxib [Celebrex] 100 mg PO DAILY 08/02/17 [History] Fluticasone Propionate Nasal [Flonase] 50 mcg NS DAILY 08/02/17 [History] Loperamide [Imodium] 2 mg PO Q4HR PRN #30 capsule 09/10/17 [Rx] Acetaminophen [Tylenol] 650 mg PO Q6HR PRN tablet 11/04/17 [Rx] Aspirin Enteric Coated [Aspirin EC] 81 mg PO DAILY tablet. 11/04/17 [Rx] Polyethylene Glycol 3350 [MiraLAX] 17 gm PO DAILY powd.pack 11/04/17 [Rx] Sennosides/Docusate Sodium [Senna Plus] 2 each PO BID tablet 11/04/17 [Rx] hydrALAZINE [HydrALAZINE] 50 mg PO TID tablet 11/04/17 [Rx] predniSONE [PredniSONE] 50 mg PO DAILY #13 tablet 11/04/17 [Rx] Allergies/Adverse Reactions: 3 Allergy/AdvReac Type Severity Reaction Status Date / Time No Known Allergies Allergy Verified 08/23/16 19:46 Date of admission: 10/28/17 22:52 Primary care physician: Eduardo Hernandez Jr, MD Consults: 10/28/17 23:57 Consult to Nurse Navigator [CONS] Routine Comment: 11/01/17 10:34 Consult to Occupational Therapy [CONS] Routine Comment: Evaluate, develop and implement POC Reason for Consult: eval and tx Does patient have active BEDREST order?: No Is patient medically & hemodynamically stable?: Yes Consult to Physical Therapy [CONS] Routine Comment: Evaluate, develop and implement POC Reason for Consult: eval and tx Does patient have active BEDREST order?: No Is patient medically & hemodynamically stable?: Yes Discharging clinician: Stephanie Radford Anticipated date of discharge: 11/04/17 - Constitutional Vitals: Temp Pulse Resp BP Pulse Ox 98.3 F 75 17 163/65 94 11/04/17 11:12 11/04/17 11:12 11/04/17 11:12 11/04/17 11:12 11/04/17 11:12 General appearance: Present: cooperative, A&O X 3, no acute distress, obese, answers questions appropriately - Head Head exam: Present: atraumatic, normocephalic - Eye Eye exam: Present: conjuntiva pink, sclera anicteric - Respiratory Respiratory exam: Absent: rales, respiratory distress (equal air entry bilaterally ), wheezes - Cardiovascular Cardiovascular exam: Present: RRR, +S1, +S2. Absent: diastolic murmur, gallop, rubs, systolic murmur - GI/Abdominal GI/Abdominal exam: Present: normal bowel sounds, soft, no peritoneal signs. Absent: distended, tenderness - Extremities Exam Extremities exam: Present: pedal edema, warm, radial pulses palpable and symmetrical. Absent: calf tenderness, tenderness - Neurological Exam Neurological exam: Present: oriented X3 - Psychiatric Psychiatric exam: Present: normal affect, normal mood - Patient Status Disposition: Transfer SNF Condition: Good Functional capacity at discharge: uses cane/walker Overall status at discharge: patient is back to baseline - Discharge Instructions Follow Up With: Eduardo Hernandez Jr, MD [Primary Care Provider] - 11/08/17 11:00 am (Please follow up as schedule....) Forms: ED Satisfaction Letter Additional Instructions: Please follow up with your primary care physician within five days after your discharge from the hospital. Please follow up with your pulmonology within one week after your discharge from the hospital. Your home dose of hydralazine has been increased to 50mg three times a day. Please continue the Prednisone taper as prescribed. Prednisone 50mg PO x 1 DAY (11/05/17) Prednisone 40mg PO x 3 days (11/06-11/08/17) Prednisone 30mg PO x 3 days (11/09/17-11/11/17) Prednisone 20mg PO x 3 days (11/12/17-11/14/17) Prednisone 10mg PO x 3 days (11/15/17-11/17/17) Resume all other home medications as prescribed by your primary care physician. - Diet and Activity Activity: as per physical therapy, wear oxygen at all times, wear oxygen at night Diet: diabetic diet, low fat, low cholesterol, low salt diet
--- NOTE | 2017-11-04 14:12 | Physician Discharge Referral ---
ExtendedCare Referral Info Transfer To: ECF Provider in Charge after Transfer: PCP Institutional Level of Care: Skilled - Diagnosis (1) Acute exacerbation of chronic obstructive airways disease Priority: Primary Status: Acute (2) HCAP (healthcare-associated pneumonia) Priority: Primary Status: Acute (3) CHF (congestive heart failure) Priority: Secondary Status: Chronic (4) CKD (chronic kidney disease) stage 3, GFR 30-59 ml/min Priority: Secondary Status: Chronic (5) DM type 2 (diabetes mellitus, type 2) Priority: Secondary Status: Chronic (6) DVT prophylaxis Priority: Secondary Status: Acute (7) Paroxysmal A-fib Priority: Secondary Status: Chronic (8) Hypertension Priority: Secondary Status: Chronic (9) Hypokalemia Priority: Secondary Status: Resolved (10) Obesity (BMI 30-39.9) Priority: Secondary Status: Chronic - Transfer Medications Home Medications: Amitriptyline [Elavil] 10 mg PO HS 08/23/16 [History] Ascorbate Calcium [Vitamin C] 500 mg PO DAILY 08/23/16 [History] Vitamin B Complex 1 cap PO DAILY 08/23/16 [History] Oxygen 5.5 l NS CONT 09/21/16 [History] Diltiazem CD (24hr) [Cardizem CD] 180 mg PO DAILY #30 cap.er.24h 10/14/16 [Rx] Calcium Carbonate [Calcium] 500 mg PO DAILY 12/06/16 [History] Cholecalciferol (D-3) [Vitamin D] 1,000 unit PO DAILY 12/06/16 [History] Docusate [Colace] 100 mg PO DAILY PRN 12/06/16 [History] Ipratropium/Albuterol Neb [Duoneb] 3 ml IH BID 12/06/16 [History] Multivits Min/Iron/FA/Herb#186 [Hair, Skin and Nails Caplet] 1 tab PO DAILY 05/15 [History] Vitamin E Acid Succinate [Vitamin E] 400 unit PO DAILY 12/06/16 [History] Acetaminophen w/Cod 300-30 mg [Tylenol w/Codeine #3] 1 tab PO TID PRN 12/31/16 [ History] Lactobacillus [Culturelle] 1 each PO BID #30 cap.sprink 01/04/17 [Rx] Atorvastatin Calcium [Lipitor] 20 mg PO BID 06/04/17 [History] Febuxostat [Uloric] 40 mg PO DAILY 06/04/17 [History] Ferrous Gluconate 324 mg PO Q48H 06/04/17 [History] Metoprolol [Lopressor] 50 mg PO BID 06/04/17 [History] [place]-3 Fatty Acids [Fish Oil] 300 mg PO DAILY 06/04/17 [History] Pantoprazole Sodium 40 mg PO BID 06/04/17 [History] metFORMIN [Glucophage] 1,000 mg PO BID 06/04/17 [History] Umeclidinium Brm/Vilanterol Tr [Anoro Ellipta 62.5-25 Mcg INH] 1 each IH DAILY # 1 blst.w.dev 06/07/17 [Rx] Bumetanide [Bumex] 2 mg PO BID 08/02/17 [History] Celecoxib [Celebrex] 100 mg PO DAILY 08/02/17 [History] Fluticasone Propionate Nasal [Flonase] 50 mcg NS DAILY 08/02/17 [History] Loperamide [Imodium] 2 mg PO Q4HR PRN #30 capsule 09/10/17 [Rx] Acetaminophen [Tylenol] 650 mg PO Q6HR PRN tablet 11/04/17 [Rx] Aspirin Enteric Coated [Aspirin EC] 81 mg PO DAILY tablet. 11/04/17 [Rx] Polyethylene Glycol 3350 [MiraLAX] 17 gm PO DAILY powd.pack 11/04/17 [Rx] Sennosides/Docusate Sodium [Senna Plus] 2 each PO BID tablet 11/04/17 [Rx] hydrALAZINE [HydrALAZINE] 50 mg PO TID tablet 11/04/17 [Rx] predniSONE [PredniSONE] 50 mg PO DAILY #13 tablet 11/04/17 [Rx] Allergies/Adverse Reactions: 3 Allergy/AdvReac Type Severity Reaction Status Date / Time No Known Allergies Allergy Verified 08/23/16 19:46 - Respiratory Orders Smoking Cessation: Smoking cessation has been advised. For more information, call the [place] Tobacco Quit Line at 1-106-QAXE-NOW. - Rehabiliation Orders Other: Please follow up with your primary care physician within five days after your discharge from the hospital. Please follow up with your pulmonology within one week after your discharge from the hospital. Your home dose of hydralazine has been increased to 50mg three times a day. Please continue the Prednisone taper as prescribed. (Prednisone 50mg PO x 1 DAY (11/05/17) Prednisone 40mg PO x 3 days (11/06-11/08/17) Prednisone 30mg PO x 3 days (11/09/17-11/11/17) Prednisone 20mg PO x 3 days (11/12/17-11/14/17) Prednisone 10mg PO x 3 days (11/15/17-11/17/17) Resume all other home medications as prescribed by your primary care physician. CERTIFICATION: I certify that the transfer of the above named patient to an Extended Care Facility is necessary for the continuing treatment of the diagnosis listed. The above information is true and accurate reflection of patient's current condition. Confidential - Redisclosure prohibited without a patient's written consent.
[2017-11-04] MEDS: Nystatin POWDER 30 GM BOTTLE TP SCH (15:15)
[2017-11-04 16:39] VITALS: BP 150/69
[2017-11-04] MEDS ORDERED: Cefepime HCl 2,000 MG in Water for inj. (sterile) 20 ML 20 ML IVP SCH (20:00)
== END 2017-11-04 17:35 | DRG 190 ==
LOC: EMEROO 20:17 → 2ANU 20:17
PROVIDERS: ADMIT Internal Medicine; ATTEND Internal Medicine

== ENCOUNTER 2017-11-20 19:45 | Inpatient (IN) ==
[2017-11-20] MEDS ORDERED: methylPREDNISolone 125 MG/2 ML VIAL IVP ONE (19:56)
[2017-11-20] MEDS ORDERED: Ipratropium/Albuterol Neb 3 ML IH ONE (19:56)
[2017-11-20] MEDS ORDERED: Isovue-370 500 ML INFUS..BTL IV ONE (19:58)
--- NOTE | 2017-11-20 20:02 | Emergency Department Note ---
Disposition Clinical Impression: Elevated troponin COPD (chronic obstructive pulmonary disease) Qualifiers: COPD type: unspecified COPD Qualified Code(s): J44.9 - Chronic obstructive pulmonary disease, unspecified Pneumonia Qualifiers: Pneumonia type: due to unspecified organism Laterality: right Lung location: unspecified part of lung Qualified Code(s): J18.9 - Pneumonia, unspecified organism Anemia Qualifiers: Anemia type: unspecified type Qualified Code(s): D64.9 - Anemia, unspecified Sepsis Qualifiers: Sepsis type: sepsis due to unspecified organism Qualified Code(s): A41.9 - Sepsis, unspecified organism Disposition: Admitted As Inpatient Condition: Fair Time of Disposition: 21:59 General Adult HPI - General Stated complaint: SoB Time Seen by Provider: 11/20/17 19:55 Source: patient, EMS Mode of arrival: ambulatory Limitations: no limitations Nursing Notes Reviewed: Yes Vital Signs Reviewed: Yes - History of Present Illness HPI Narrative: 71-year-old female with history of COPD, CHF with recent hospitalization for pneumonia and COPD exacerbation presents for evaluation from [facility] for shortness of breath. Patient is typically on 5 L nasal cannula with oxygen saturation between 88-90%. Patient has been using her breathing treatments throughout the day. Patient's dyspnea is mostly with exertion. Patient denies any chest pain. Patient does have a nonproductive cough. Patient denies any abdominal pain. No nausea or vomiting. Pain Scale: 5 - Related Data Home Medications Medication Instructions Recorded Confirmed Amitriptyline [Elavil] 10 mg PO HS 08/23/16 11/20/17 Ascorbate Calcium [Vitamin C] 500 mg PO DAILY 08/23/16 11/20/17 Vitamin B Complex 1 cap PO DAILY 08/23/16 11/20/17 Oxygen 5.5 l NS CONT 09/21/16 11/20/17 Calcium Carbonate [Calcium] 500 mg PO DAILY 12/06/16 11/20/17 Cholecalciferol (D-3) [Vitamin D] 1,000 unit PO DAILY 12/06/16 11/20/17 Docusate [Colace] 100 mg PO DAILY PRN 12/06/16 11/20/17 Ipratropium/Albuterol Neb [Duoneb] 3 ml IH Q6H 12/06/16 11/20/17 Multivits Min/Iron/FA/Herb#186 1 tab PO DAILY 12/06/16 11/20/17 [Hair, Skin and Nails Caplet] Vitamin E Acid Succinate [Vitamin 400 unit PO DAILY 12/06/16 11/20/17 E] Acetaminophen w/Cod 300-30 mg 1 tab PO TID PRN 12/31/16 11/20/17 [Tylenol w/Codeine #3] Atorvastatin Calcium [Lipitor] 20 mg PO BID 06/04/17 11/20/17 Ferrous Gluconate 324 mg PO Q48H 06/04/17 11/20/17 Metoprolol [Lopressor] 50 mg PO BID 06/04/17 11/20/17 [place]-3 Fatty Acids [Fish Oil] 300 mg PO DAILY 06/04/17 11/20/17 Pantoprazole Sodium 40 mg PO BID 06/04/17 11/20/17 metFORMIN [Glucophage] 1,000 mg PO BID 06/04/17 11/20/17 Bumetanide [Bumex] 2 mg PO BID 08/02/17 11/20/17 Fluticasone Propionate Nasal 1 spr NS DAILY 08/02/17 11/20/17 [Flonase] Allopurinol [Zyloprim 100 MG] 100 mg PO DAILY 11/20/17 11/20/17 Lactobacillus [Culturelle] 1 tab PO DAILY 11/20/17 11/20/17 Lactulose 30 ml PO DAILY 11/20/17 11/20/17 Nystatin POWDER [Nystop] 1 appl TP BID 11/20/17 11/20/17 Potassium Chloride [Klor-Con 10] 10 meq PO DAILY 11/20/17 11/20/17 Umeclidinium Brm/Vilanterol Tr 1 puff IH DAILY 11/20/17 11/20/17 [Anoro Ellipta 62.5-25 Mcg INH] Previous Rx's Medication Instructions Recorded Diltiazem CD (24hr) [Cardizem CD] 180 mg PO DAILY #30 cap.er.24h 10/14/16 Loperamide [Imodium] 2 mg PO Q4HR PRN #30 capsule 09/10/17 Acetaminophen [Tylenol] 650 mg PO Q6HR PRN tablet 11/04/17 Aspirin Enteric Coated [Aspirin EC] 81 mg PO DAILY tablet. 11/04/17 Polyethylene Glycol 3350 [MiraLAX] 17 gm PO DAILY powd.pack 11/04/17 Sennosides/Docusate Sodium [Senna 2 each PO BID tablet 11/04/17 Plus] hydrALAZINE [HydrALAZINE] 50 mg PO TID tablet 11/04/17 Allergies Allergy/AdvReac Type Severity Reaction Status Date / Time No Known Allergies Allergy Verified 11/20/17 19:49 All systems ED: reviewed and negative except as stated. Constitutional: Denies: fever Cardiovascular: Denies: chest pain Respiratory: Reports: cough, dyspnea. Denies: sputum production Gastrointestinal: Denies: abdominal pain, nausea, vomiting Past Medical History - Past Medical History Source: patient, obtained from family Medical history: Reports: arthritis, atrial fibrillation, CHF, COPD, DVT, diabetes, hyperlipidemia, hypertension, pulmonary embolus, renal disease Surgical history: Reports: appendectomy, Psychiatric history: Reports: anxiety, depression - Social History Smoking Status: Former smoker Smokeless Tobacco Status: No Alcohol use: Reports: none Drug use: Reports: none Physical Exam - General Limitations: no limitations General appearance: alert, in no apparent distress - Head Head exam: atraumatic, normocephalic, normal inspection - Eye Eye exam: Present: normal appearance, PERRL, EOMI - ENT ENT exam: normal exam, normal oropharynx, mucous membranes moist - Neck Neck exam: Present: normal inspection, trachea midline - Chest Chest inspection: Present: normal inspection, symmetric chest wall rise - Respiratory Respiratory exam: Present: prolonged expiratory phase, other (Diffusely diminished breath sounds). Absent: respiratory distress - Cardiovascular Cardiovascular exam: Present: normal rhythm, tachycardia. Absent: systolic murmur - Abdominal Exam Abdominal exam: Present: soft, Non-Tender - Rectal Exam [employer]ing [employer]ician present during exam: Yes Rectal exam: Present: normal inspection, normal rectal tone. Absent: heme (+) stool, bloody stool - Extremities Exam Extremities exam: Present: normal inspection, pedal edema (1-2 plus bilateral pitting edema) - Back Exam Back exam: Present: normal inspection - Neurological Exam Neurological exam: Present: alert, oriented X3, CN II-XII intact - Skin Skin exam: Present: warm, dry, intact, normal color Course Course Narrative: Patient seen and examined. Patient's records will be reviewed. At this point the patient does have diffusely diminished lung sounds throughout. Patient be treated with nebs as well as steroids. Patient also get imaging as well as basic labs. Disposition likely admission. Patient's records reviewed. Patient did have an EF of 55-60% in August of this year. It appears that the patient's goal oxygen saturations 88-92% per pulmonary documentation. Patient is a full code verified by the family as well as the patient at bedside. - Reevaluation(s) Reevaluation #1: Patient's breathing has improved with nebs. Patient did have a drop in her hemoglobin acutely however patient had a negative stool guaiac on exam today. Time: 20:36 Reevaluation #2: Patient seen and examined. Patient states that her breathing has improved. Patient does have hx of bipap and will be placed on Bipap. Time: 21:58 Reevaluation #3: Patient's resting comfortably on BiPAP. Time: 22:27 Vital Signs Temperature 98.2 F 11/20/17 19:50 Pulse Rate 130 11/20/17 19:50 Respiratory Rate 18 11/20/17 19:50 Blood Pressure 166/62 11/20/17 19:50 O2 Sat by Pulse Oximetry 89 11/20/17 19:50 Temperature 97.6 F 11/21/17 03:30 Pulse Rate 88 11/21/17 03:30 Respiratory Rate 18 11/21/17 04:05 Blood Pressure 133/78 11/21/17 03:30 O2 Sat by Pulse Oximetry 90 11/21/17 04:05 Oxygen Delivery Oxygen Delivery Bipap Medical Decision Making - MDM Narrative Medical decision making narrative: Patient has a history of COPD as well as CHF with recent hospital station for pneumonia. Patient has a new oxygen requirement. Patient's oxygen saturation goal is 88-92 however she has been having dyspnea worse with exertion. Patient had decreased air movement was treated with nebs as well as steroids given her history of COPD. Patient's breathing improved. Patient is also given gradual IV fluid hydration given a note cardiopulmonary function. Given the patient's tachycardia as well as history of PE a CTA chest was obtained which showed evidence of pneumonia. Patient was started on antibiotics. Patient will be admitted to the hospital service for further evaluation and respiratory support. Patient will be covered for hospital associated pneumonia. Patient also had a elevated troponin with no acute EKG changes. Patient was given aspirin. Patient's anemic but did not have any evidence of occult blood on rectal exam. Patient does meet SIRS criteria with sepsis. Patient was not given 30 mL/kg fluid bolus given the patient's unknown cardiopulmonary function. - Lab Data Lab results reviewed: Yes I reviewed the patient's lab results. Result diagrams: 11/20/17 20:08 11/20/17 20:08 Lab Results 11/20/17 11/20/17 11/20/17 Range/Units 20:08 20:08 20:08 WBC 6.5 (4.3-11.1) K/mcL RBC 3.55 L (3.82-4.97) M/mcL Hgb 9.9 L D (11.5-15.4) g/dL Hct 31.1 L (35.3-44.9) % MCV 87.6 (83.0-100.0) fL MCH 27.9 L (28.0-33.3) pg MCHC 31.8 (31.6-35.5) g/dL RDW 19.3 H (11.5-14.5) % Plt Count 127 L (140-400) K/mcL MPV 9.6 (9.4-12.4) fL Immature Gran % 0.6 (0-4) % Seg Neutrophils % 77.1 % Lymphocytes % 14.5 % Monocytes % 7.2 % Eosinophils % 0.3 % Basophils % 0.3 % Neutrophils # 5.0 (1.6-8.9) K/mcL Lymphocytes # 0.9 (0.6-4.6) K/mcL Monocytes # 0.5 (0.0-1.3) K/mcL Eosinophils # 0.0 (0.0-0.6) K/mcL Basophils # 0.0 (0.0-0.2) K/mcL Nucleated RBCs/100 WBC 0.5 H (0) /100 WBC PT 12.4 H (9.4-12.1) Seconds INR 1.1 VBG pH (7.32-7.42) pH Units VBG pCO2 (41-51) mmHg VBG pO2 (25-50) mmHg VBG HCO3 (21-27) mEq/L Sodium 141 (136-145) mEq/L Potassium 3.6 (3.5-5.1) mEq/L Chloride 97 L (98-107) mEq/L Carbon Dioxide 34 H (23-29) mEq/L BUN 27 H (8-23) mg/dL Creatinine 1.08 (0.60-1.20) mg/dL Est GFR ( Amer) > 60 (> 60) Est GFR (Non-Af Amer) 50 L (> 60) BUN/Creatinine Ratio 25 (6-26) Glucose 222 H (70-105) mg/dL Calculated Osmolality 304 H (280-300) Lactic Acid (0.5-2.2) mmol/L Calcium 8.8 (8.6-10.3) mg/dL Total Bilirubin (0.3-1.0) mg/dL Direct Bilirubin (0.0-0.2) mg/dL Indirect Bilirubin (0.0-1.2) mg/dL AST (13-39) Units/L ALT (7-52) Units/L Alkaline Phosphatase (34-104) Units/L Troponin I 0.04 H* (< 0.04) ng/mL B-Natriuretic Peptide (Less than 100) pg/mL Serum Total Protein (6.4-8.9) g/dL Albumin (3.5-5.7) g/dL Globulin (2.4-3.5) g/dL Albumin/Globulin Ratio (1.1-2.2) 11/20/17 11/20/17 11/20/17 Range/Units 20:08 20:08 20:23 WBC (4.3-11.1) K/mcL RBC (3.82-4.97) M/mcL Hgb (11.5-15.4) g/dL Hct (35.3-44.9) % MCV (83.0-100.0) fL MCH (28.0-33.3) pg MCHC (31.6-35.5) g/dL RDW (11.5-14.5) % Plt Count (140-400) K/mcL MPV (9.4-12.4) fL Immature Gran % (0-4) % Seg Neutrophils % % Lymphocytes % % Monocytes % % Eosinophils % % Basophils % % Neutrophils # (1.6-8.9) K/mcL Lymphocytes # (0.6-4.6) K/mcL Monocytes # (0.0-1.3) K/mcL Eosinophils # (0.0-0.6) K/mcL Basophils # (0.0-0.2) K/mcL Nucleated RBCs/100 WBC (0) /100 WBC PT (9.4-12.1) Seconds INR VBG pH (7.32-7.42) pH Units VBG pCO2 (41-51) mmHg VBG pO2 (25-50) mmHg VBG HCO3 (21-27) mEq/L Sodium (136-145) mEq/L Potassium (3.5-5.1) mEq/L Chloride (98-107) mEq/L Carbon Dioxide (23-29) mEq/L BUN (8-23) mg/dL Creatinine (0.60-1.20) mg/dL Est GFR ( Amer) (> 60) Est GFR (Non-Af Amer) (> 60) BUN/Creatinine Ratio (6-26) Glucose (70-105) mg/dL Calculated Osmolality (280-300) Lactic Acid 2.4 H (0.5-2.2) mmol/L Calcium (8.6-10.3) mg/dL Total Bilirubin 0.5 (0.3-1.0) mg/dL Direct Bilirubin 0.1 (0.0-0.2) mg/dL Indirect Bilirubin 0.4 (0.0-1.2) mg/dL AST 13 (13-39) Units/L ALT 16 (7-52) Units/L Alkaline Phosphatase 66 (34-104) Units/L Troponin I (< 0.04) ng/mL B-Natriuretic Peptide 186 H (Less than 100) pg/mL Serum Total Protein 5.5 L (6.4-8.9) g/dL Albumin 3.0 L (3.5-5.7) g/dL Globulin 2.5 (2.4-3.5) g/dL Albumin/Globulin Ratio 1.2 (1.1-2.2) 11/20/17 11/20/17 Range/Units 20:31 22:43 WBC (4.3-11.1) K/mcL RBC (3.82-4.97) M/mcL Hgb (11.5-15.4) g/dL Hct (35.3-44.9) % MCV (83.0-100.0) fL MCH (28.0-33.3) pg MCHC (31.6-35.5) g/dL RDW (11.5-14.5) % Plt Count (140-400) K/mcL MPV (9.4-12.4) fL Immature Gran % (0-4) % Seg Neutrophils % % Lymphocytes % % Monocytes % % Eosinophils % % Basophils % % Neutrophils # (1.6-8.9) K/mcL Lymphocytes # (0.6-4.6) K/mcL Monocytes # (0.0-1.3) K/mcL Eosinophils # (0.0-0.6) K/mcL Basophils # (0.0-0.2) K/mcL Nucleated RBCs/100 WBC (0) /100 WBC PT (9.4-12.1) Seconds INR VBG pH 7.50 H (7.32-7.42) pH Units VBG pCO2 44 (41-51) mmHg VBG pO2 106 H (25-50) mmHg VBG HCO3 35 H (21-27) mEq/L Sodium (136-145) mEq/L Potassium (3.5-5.1) mEq/L Chloride (98-107) mEq/L Carbon Dioxide (23-29) mEq/L BUN (8-23) mg/dL Creatinine (0.60-1.20) mg/dL Est GFR ( Amer) (> 60) Est GFR (Non-Af Amer) (> 60) BUN/Creatinine Ratio (6-26) Glucose (70-105) mg/dL Calculated Osmolality (280-300) Lactic Acid 1.1 (0.5-2.2) mmol/L Calcium (8.6-10.3) mg/dL Total Bilirubin (0.3-1.0) mg/dL Direct Bilirubin (0.0-0.2) mg/dL Indirect Bilirubin (0.0-1.2) mg/dL AST (13-39) Units/L ALT (7-52) Units/L Alkaline Phosphatase (34-104) Units/L Troponin I (< 0.04) ng/mL B-Natriuretic Peptide (Less than 100) pg/mL Serum Total Protein (6.4-8.9) g/dL Albumin (3.5-5.7) g/dL Globulin (2.4-3.5) g/dL Albumin/Globulin Ratio (1.1-2.2) - Radiology Data Radiology results reviewed: Yes I reviewed the patient's radiology results. Chest X-Ray 11/20/17 19:56 IMPRESSION: Hazy densities in the lung bases are stable since comparison study. This is suggestive of pleural effusion and partial atelectasis. Underlying pneumonia is not excluded. D/ / 11/20/2017 20:38:12 Delon Alonso MD / ladonna Interpreting Provider: Delon Alonso MD Chest CTA 11/20/17 19:58 IMPRESSION: 1. No evidence of pulmonary embolism. 2. Patchy ground-glass and early consolidative opacities in the right upper lobe new from 08/02/2017 compatible with pneumonia. 3. Chronic consolidative opacities with air bronchograms and volume loss in the bilateral lower and right middle lobes mildly worsened from 08/02/2017. Findings are nonspecific but may represent chronic fibrotic changes/scarring/atelectasis. 4. Small right and trace left pleural effusions. 5. Mild emphysematous changes. D/ / Ki Clancy MD / Ki Clancy MD Interpreting Provider: Ki Clancy MD - EKG Data EKG #1 EKG attestation: Yes I reviewed and interpreted this EKG. EKG shows normal: sinus rhythm Rate: tachycardia Rhythm: NSR Alsip/QRS: normal T wave inversions noted in: v1 When compared to previous EKG there are: changes noted Interpretation: nonspecific ST-T wave changes S.B.A.R. - S.B.A.R. Situation: Demographics Background: Presenting Complaint Assessment: Vital Signs, Patient/Family Expectation Recommendation: Barrier(s) to disposition, Recommendation based on pending studies, treatments, or consults S.B.A.R. Report Given to: Dr. Romero S.B.A.RSandi Repor Time: 22:12 Attestation Statement - Attestation Attestation: I examined this patient and my medical decision-making was reviewed with the Resident Physician. I agree with the documented findings, disposition and treatment plan as described except to the extent set forth below. Findings consistent with dyspnea. Possible pneumonia. Patient did have hypoxia which was responsive to BiPAP. The patient does use BiPAP at home. Antibiotics, cultures, bronchodilators. Proceed with admission for further management of hypoxia in the setting of chronic obstructive pulmonary disease and possibly new pneumonia. I spent greater than 35 minutes of critical care time resuscitating this acutely ill patient suffering from pneumonia and hypoxia requiring BiPAP. This was excluding billable procedures.
[2017-11-20] MEDS ORDERED: 0.9 % Sodium Chloride 500 ML IVC ONE (20:10)
[2017-11-20 20:19] LABS: Basophils % 0.3 %; Eosinophils % 0.3 %; Hematocrit 31.1 % (35.3-44.9); Hemoglobin 9.9 g/dL (11.5-15.4); Immature Granulocytes % 0.6 % (0-4); Lymphocytes # 0.9 K/mcL (0.6-4.6); Lymphocytes % 14.5 %; Mean Corpuscular HGB Conc 31.8 g/dL (31.6-35.5); Mean Corpuscular Hemoglobin 27.9 pg (28.0-33.3); Mean Corpuscular Volume 87.6 fL (83.0-100.0); Mean Platelet Volume 9.6 fL (9.4-12.4); Monocytes # 0.5 K/mcL (0.0-1.3); Monocytes % 7.2 %; Nucleated Red Blood Cells 0.5 /100 WBC (0); Platelet Count 127 K/mcL (140-400); Red Blood Count 3.55 M/mcL (3.82-4.97); Red Cell Distribution Width 19.3 % (11.5-14.5); Segmented Neutrophils % 77.1 %
[2017-11-20 20:23] LABS: INR 1.1; Prothrombin Time 12.4 Seconds (9.4-12.1)
[2017-11-20 20:37] LABS: Albumin/Globulin Ratio 1.2 (1.1-2.2); Bilirubin,Direct 0.1 mg/dL (0.0-0.2); Bilirubin,Indirect 0.4 mg/dL (0.0-1.2); Bilirubin,Total 0.5 mg/dL (0.3-1.0); Globulin 2.5 g/dL (2.4-3.5); Total Protein 5.5 g/dL (6.4-8.9)
[2017-11-20 20:40] LABS: BUN/Creatinine Ratio 25 (6-26); Blood Urea Nitrogen 27 mg/dL (8-23); Calcium 8.8 mg/dL (8.6-10.3); Carbon Dioxide 34 mEq/L (23-29); Chloride 97 mEq/L (98-107); Glucose 222 mg/dL (70-105); Osmolality,Calculated 304 (280-300); Potassium 3.6 mEq/L (3.5-5.1); Sodium 141 mEq/L (136-145); eGFR For African Americans > 60 (> 60); eGFR For Non-African Americans 50 (> 60)
[2017-11-20 20:42] LABS: Troponin I 0.04 ng/mL (< 0.04)
[2017-11-20] MEDS ORDERED: Aspirin 81 MG TAB.CHEW PO ONE (20:43)
[2017-11-20 20:49] LABS: VBG HCO3 35 mEq/L (21-27); VBG PCO2 44 mmHg (41-51); VBG PO2 106 mmHg (25-50)
[2017-11-20] MEDS ORDERED: Piperacillin/Tazobactam 3.375 GM in 0.9 % Sodium Chloride Mini Bag 100 ML IVPB ONE (21:44)
[2017-11-21] MEDS ORDERED: Naloxone 0.4 MG/ML INJ IVP PRN (02:09)
[2017-11-21] MEDS ORDERED: Acetaminophen 325 MG TABLET PO PRN (02:09)
[2017-11-21] MEDS ORDERED: Ipratropium/Albuterol Neb 3 ML IH PRN (02:21)
[2017-11-21] MEDS ORDERED: *HR* Acetaminophen w/Cod 300-30 mg 1 TAB TABLET PO PRN (02:27)
[2017-11-21] MEDS ORDERED: *HR* Dextrose 50 % in Water (Syg) 50 ML SYRINGE IVP PRN (02:30)
[2017-11-21] MEDS ORDERED: D5% in Water 1,000 ML IVC PRN (02:30)
[2017-11-21] MEDS ORDERED: Dextrose Gel 15 GM/37.5 ML TUBE PO PRN ×2 (02:30)
[2017-11-21] MEDS: Ipratropium/Albuterol Neb 3 ML IH SCH ×5 (04:03→21:46)
[2017-11-21] MEDS ORDERED: Nystatin POWDER 30 GM BOTTLE TP PRN (04:53)
[2017-11-21] MEDS: *HR* Heparin 5,000 UNIT/ML VIAL SQ SCH ×2 (04:55→15:54)
--- NOTE | 2017-11-21 05:00 | Internal Med History&Physical ---
Date of Encounter: 11/21/17 Time of Encounter: 01:00 Internal Medicine - H&P: HPI Chief complaint: Shortness of breath Admitted From: Home Plans for Post Hospital Care: Home History of present illness: Ms. Pollack is a 71 year old female present to ER for shortness of breath for about 1 week. Past medical history is significant for COPD, CHF, diabetes. Patient was recently hospitalized and was discharged to [facility] for rehabilitation. Patient has progressive increase of shortness of breath in last week. With exertional desaturation to 70s percent. Patient also has noticed bilateral foot swelling. Patient has productive cough with clear sputum. Patient denies fever. Patient denies chest pain. In the emergency room, CTA has been done, which shows no PE but shows right upper lobe pneumonia. Patient was admitted for HCAP, COPD exacerbation, and CHF exacerbation. Past Med Surg Social Fam HX - Past Medical History Medical history: arthritis, atrial fibrillation, CHF, COPD, DVT, diabetes, hyperlipidemia, hypertension, pulmonary embolus, renal disease Psychiatric history: anxiety, depression - Past Surgical History Surgical History: appendectomy, - Social History Smoking Status: Former smoker Smokeless Tobacco Status: No Alcohol use: none Drug use: none - Family History Mother Family Member Ethnicity: Non- Living Status: Hx Family Cardiac Disorders: Yes (htn) Hx Family Respiratory Disorders: Yes Hx Family Cancer: Yes (lung) Hx Family GI Disorders: No Hx Family Endocrine Disorder: No Hx Family Neuromuscular Disorders: No Hx Family Neurologic Disorders: No Hx Family HEENT Disorders: No Hx Family Autoimmune Disorders: No Father Family Member Ethnicity: Non- Living Status: Hx Family Cancer: Yes (leukemia) Brother Family Member Ethnicity: Non- Living Status: Hx Family Cancer: Yes (Lung) Sister Family Member Ethnicity: Non- Living Status: Still Living Hx Family Cancer: Yes (Lymphoma) Internal Medicine - H&P: Meds RX: Amitriptyline [Elavil] 10 mg PO HS 08/23/16 [History] RX: Ascorbate Calcium [Vitamin C] 500 mg PO DAILY 08/23/16 [History] RX: Vitamin B Complex 1 cap PO DAILY 08/23/16 [History] RX: Oxygen 5.5 l NS CONT 09/21/16 [History] RX: Diltiazem CD (24hr) [Cardizem CD] 180 mg PO DAILY #30 cap.er.24h 10/14/16 [ Rx] RX: Calcium Carbonate [Calcium] 500 mg PO DAILY 12/06/16 [History] RX: Cholecalciferol (D-3) [Vitamin D] 1,000 unit PO DAILY 12/06/16 [History] RX: Docusate [Colace] 100 mg PO DAILY PRN 12/06/16 [History] RX: Ipratropium/Albuterol Neb [Duoneb] 3 ml IH Q6H 12/06/16 [History] RX: Multivits Min/Iron/FA/Herb#186 [Hair, Skin and Nails Caplet] 1 tab PO DAILY 12/06/16 [History] RX: Vitamin E Acid Succinate [Vitamin E] 400 unit PO DAILY 12/06/16 [History] RX: Acetaminophen w/Cod 300-30 mg [Tylenol w/Codeine #3] 1 tab PO TID PRN [History] RX: Atorvastatin Calcium [Lipitor] 20 mg PO BID 06/04/17 [History] RX: Ferrous Gluconate 324 mg PO Q48H 06/04/17 [History] RX: Metoprolol [Lopressor] 50 mg PO BID 06/04/17 [History] RX: [place]-3 Fatty Acids [Fish Oil] 300 mg PO DAILY 06/04/17 [History] RX: Pantoprazole Sodium 40 mg PO BID 06/04/17 [History] RX: metFORMIN [Glucophage] 1,000 mg PO BID 06/04/17 [History] RX: Bumetanide [Bumex] 2 mg PO BID 08/02/17 [History] RX: Fluticasone Propionate Nasal [Flonase] 1 spr NS DAILY 08/02/17 [History] RX: Loperamide [Imodium] 2 mg PO Q4HR PRN #30 capsule 09/10/17 [Rx] RX: Acetaminophen [Tylenol] 650 mg PO Q6HR PRN tablet 11/04/17 [Rx] RX: Aspirin Enteric Coated [Aspirin EC] 81 mg PO DAILY tablet. 11/04/17 [Rx] RX: Polyethylene Glycol 3350 [MiraLAX] 17 gm PO DAILY powd.pack 11/04/17 [Rx] RX: Sennosides/Docusate Sodium [Senna Plus] 2 each PO BID tablet 11/04/17 [Rx] RX: hydrALAZINE [HydrALAZINE] 50 mg PO TID tablet 11/04/17 [Rx] Allopurinol [Zyloprim 100 MG] 100 mg PO DAILY 11/20/17 [History] Nystatin POWDER [Nystop] 1 appl TP BID 11/20/17 [History] Potassium Chloride [Klor-Con 10] 10 meq PO DAILY 11/20/17 [History] RX: Lactobacillus [Culturelle] 1 tab PO DAILY 11/20/17 [History] RX: Lactulose 30 ml PO DAILY 11/20/17 [History] RX: Umeclidinium Brm/Vilanterol Tr [Anoro Ellipta 62.5-25 Mcg INH] 1 puff IH DAILY 11/20/17 [History] 3 Allergy/AdvReac Type Severity Reaction Status Date / Time No Known Allergies Allergy Verified 11/20/17 19:49 All Systems PM: A 10-system review of systems was performed and is negative for pertinent findings except as documented above in the HPI. - Constitutional Vitals: Temp Pulse Resp BP Pulse Ox 97.6 F 88 18 133/78 90 11/21/17 03:30 11/21/17 03:30 11/21/17 04:05 11/21/17 03:30 11/21/17 04:05 General appearance: Present: mild distress, A&O X 3, answers questions appropriately - Head Head exam: Present: atraumatic, normocephalic - Eye Eye exam: Present: PERRL, conjuntiva pink, sclera anicteric Pupils: Present: PERRL - Neck Neck exam general surgery: Present: supple, trachea midline. Absent: lymphadenopathy - Respiratory Respiratory exam: Present: CTAB, respiratory distress, wheezes (Scattered wheezes bilaterally). Absent: accessory muscle use, rales, rhonchi - Cardiovascular Cardiovascular exam: Present: RRR, +S1, +S2. Absent: diastolic murmur, gallop, rubs, systolic murmur - GI/Abdominal GI/Abdominal exam: Present: normal bowel sounds, soft, no peritoneal signs. Absent: distended, tenderness - Extremities Exam Extremities exam: Present: pedal edema (Bilateral pitting edema on feet), warm, radial pulses palpable and symmetrical. Absent: calf tenderness, cyanotic - Neurological Exam Neurological exam: Present: CN II-XII intact, oriented X3, no focal deficits. Absent: pronater drift, facial droop, speech deficit - Skin Skin exam: Present: dry, intact Internal Med - H&P Results - Labs CBC & Chem 7: 11/20/17 20:08 11/20/17 20:08 - EKG Data -: EKG Interpreted by Myself EKG shows normal: sinus rhythm Rate: tachycardia - Assessment and plan (1) Elevated troponin Current Visit: Yes Status: Acute Assessment and plan: Patient denies chest pain. Mild elevated troponin most likely due to demand ischemia. - Continuous cardiac monitoring - Track 3 sets of troponin (2) Acute and chronic respiratory failure with hypoxia Current Visit: No Status: Acute Assessment and plan: Due to pneumonia, COPD exacerbation and CHF exacerbation. Continue supportive treatment with BiPAP and nasal cannula oxygen. Continue treat underlying disease. (3) Acute exacerbation of chronic obstructive airways disease Current Visit: No Status: Acute Assessment and plan: Patient has history of COPD on home oxygen and home BiPAP. Patient has increased the shortness of breath with wheezing. Consider COPD exacerbation. - Continue antibiotics, steroids, and bronchodilator - Continue night time BiPAP and oxygen supportive treatment (4) HCAP (healthcare-associated pneumonia) Current Visit: No Status: Acute (5) DM type 2 (diabetes mellitus, type 2) Current Visit: No Status: Chronic Assessment and plan: Place patient on sliding scale insulin coverage Qualifiers: Diabetes mellitus rn long term care insulin use: without rn long term care use Diabetes mellitus complication status: with hyperglycemia Qualified Code(s): E11.65 - Type 2 diabetes mellitus with hyperglycemia (6) Paroxysmal A-fib Current Visit: No Status: Chronic Assessment and plan: Right now sinus rhythm. Continue cardiac monitoring. Patient is on aspirin only for CVA prophylaxis, she is not on anticoagulation because of previous history of GI bleed. (7) CHF exacerbation Current Visit: Yes Status: Acute Assessment and plan: Patient has history of diastolic CHF. Has increased leg swelling and shortness of breath. BNP is mild elevated but patient is obese, probably falsely low. - Continue cardiac monitoring - Lasix 40 mg IV daily - Strict I and O - Fluid restriction diet - Repeat echo Qualifiers: Heart failure type: diastolic Qualified Code(s): I50.33 - Acute on chronic diastolic (congestive) heart failure - Time Spent With Patient Total time spent is greater than 50% in coordination of care (as documented) at patient's floor/unit and/or counseling patient: 40 minutes Greater than 35 minutes
[2017-11-21 05:50] LABS: Basophils % 0.2 %; Hematocrit 29.2 % (35.3-44.9); Hemoglobin 9.3 g/dL (11.5-15.4); Immature Granulocytes % 1.2 % (0-4); Lymphocytes # 0.3 K/mcL (0.6-4.6); Lymphocytes % 6.5 %; Mean Corpuscular HGB Conc 31.8 g/dL (31.6-35.5); Mean Corpuscular Hemoglobin 28.3 pg (28.0-33.3); Mean Corpuscular Volume 88.8 fL (83.0-100.0); Mean Platelet Volume 10.1 fL (9.4-12.4); Monocytes # 0.1 K/mcL (0.0-1.3); Monocytes % 1.5 %; Neutrophils # 3.7 K/mcL (1.6-8.9); Platelet Count 113 K/mcL (140-400); Red Blood Count 3.29 M/mcL (3.82-4.97); Segmented Neutrophils % 90.6 %
[2017-11-21 06:12] LABS: BUN/Creatinine Ratio 27 (6-26); Blood Urea Nitrogen 26 mg/dL (8-23); Calcium 8.3 mg/dL (8.6-10.3); Carbon Dioxide 33 mEq/L (23-29); Chloride 97 mEq/L (98-107); Chol/HDL Ratio 2.3 (0-4.9); Cholesterol 114 mg/dL (< 200); Glucose 306 mg/dL (70-105); HDL Cholesterol 49 mg/dL (40-59); LDL Cholesterol,Calculated 49 mg/dL (0-99); Magnesium 1.4 mg/dL (1.6-2.6); Osmolality,Calculated 306 (280-300); Potassium 3.9 mEq/L (3.5-5.1); Sodium 140 mEq/L (136-145); Triglycerides 81 mg/dL (< 150); eGFR For African Americans > 60 (> 60); eGFR For Non-African Americans 57 (> 60)
[2017-11-21 07:06] LABS: Anisocytosis 1+ (Not Present); Macrocytosis Present (Not Present); Platelet Estimate Decreased (Normal)
[2017-11-21] MEDS: Diltiazem CD (24hr) 180 MG CAPSULE PO SCH (08:31)
[2017-11-21] MEDS: Ascorbic Acid 500 MG TABLET PO SCH (08:31)
[2017-11-21] MEDS: Lactobacillus 1 EACH CAP.SPRINK PO SCH (08:31)
[2017-11-21] MEDS: hydrALAZINE 25 MG TABLET PO SCH ×3 (08:32→20:43)
[2017-11-21] MEDS: predniSONE 20 MG TABLET PO SCH (08:32)
[2017-11-21] MEDS: Cholecalciferol (D-3) 1,000 UNIT TABLET PO SCH (08:32)
[2017-11-21] MEDS: Aspirin Enteric Coated 81 MG Tablet PO SCH (08:32)
[2017-11-21] MEDS: Lactulose Oral Soln 20 GM/30 ML UDC PO SCH (08:32)
[2017-11-21] MEDS: Furosemide 40 MG/4 ML VIAL IVP SCH (08:32)
[2017-11-21] MEDS: Vitamin B Complex/Vit C/Vit E 1 EACH TABLET PO SCH (08:32)
[2017-11-21] MEDS: Sennosides/Docusate Sodium TABLET PO SCH ×2 (08:32→20:43)
[2017-11-21] MEDS: Insulin LISPRO 300 UNITS/3 ML VIAL SQ SCH ×5 (08:33→22:33)
[2017-11-21] MEDS: Piperacillin/Tazobactam 3.375 GM in 0.9 % Sodium Chloride Mini Bag 100 ML IVPB SCH ×2 (08:34→15:55)
[2017-11-21] MEDS: Fluticasone Propionate Nasal 50 MCG/SPRAY BOTTLE NS SCH (12:07)
[2017-11-21] MEDS ORDERED: (Omega-3 Fatty Acids [Fish Oil] 300 MG) PO SCH (19:45)
--- NOTE | 2017-11-21 19:53 | Event Note ---
Date of Encounter: 11/21/17 Time of Encounter: 19:47 S: Patient had no acute events after admission. She states that she is breathing a little better. She denies chest pain, palpitations, fever, chills, nausea, vomiting, or abdominal pain. She has no other complaints. O: Gen - Awake, alert, well-nourished, no acute distress HEENT - NCAT, PERRLA, EOMI, hearing grossly intact, oropharynx benign CV - RRR, normal S1 and S2, no M/R/G, 2+ pitting BLE edema Resp - Mildly labored WOB, coarse breath sounds bilaterally with intermittent expiratory wheeze, no rales or rhonchi GI - Soft, NT/ND, no masses, normal bowel sounds, no HSP Skin - Warm, dry, no rashes/lesions/ulcers, multiple ecchymoses in various stages of healing throught body Psych - Normal mood and affect, no depression or anxiety A/P: 1) Acute Exacerbation of COPD - Continue IV steroids, antibiotics, nebs, and supplemental O2. 2) Acute on Chronic CHF - Continue IV lasix, fluid restricted diet, monitor strict I&Os, daily weights, and repeat labwork in AM. 3) HCAP - Continue antibiotics. 4) Elevated Troponin - Likely demand ischemia. Troponin trended negative at 12 hours. Asymptomatic. Continue to monitor. 5) DM Type II with Hyperglycemia - Likely secondary to steroid use. Start levemir 10 units QHS. Increase to high dose sliding scale insulin QID AC/HS.
[2017-11-21] MEDS: Nystatin POWDER 30 GM BOTTLE TP SCH (20:44)
[2017-11-21] MEDS: Multivit/Ca/Min/Fe/FA 1 TAB TABLET PO SCH (20:49)
[2017-11-21] MEDS: Bumetanide 1 MG TABLET PO SCH (20:49)
[2017-11-21] MEDS: Insulin DETEMIR 100 UNIT/ML X5UNITS SQ SCH (20:54)
[2017-11-21] MEDS ORDERED: Insulin LISPRO 300 UNITS/3 ML VIAL SQ SCH (21:00)
[2017-11-21] MEDS: *HR* Acetaminophen w/Cod 300-30 mg 1 TAB TABLET PO PRN (22:25)
[2017-11-22] MEDS: Piperacillin/Tazobactam 3.375 GM in 0.9 % Sodium Chloride Mini Bag 100 ML IVPB SCH ×3 (00:16→17:12)
[2017-11-22] MEDS: *HR* Heparin 5,000 UNIT/ML VIAL SQ SCH ×2 (04:22→17:24)
[2017-11-22] MEDS: Ipratropium/Albuterol Neb 3 ML IH SCH ×4 (04:36→21:41)
[2017-11-22 07:08] LABS: BUN/Creatinine Ratio 27 (6-26); Blood Urea Nitrogen 29 mg/dL (8-23); Calcium 8.5 mg/dL (8.6-10.3); Carbon Dioxide 33 mEq/L (23-29); Chloride 98 mEq/L (98-107); Glucose 209 mg/dL (70-105); Osmolality,Calculated 300 (280-300); Potassium 3.5 mEq/L (3.5-5.1); Sodium 139 mEq/L (136-145); eGFR For African Americans > 60 (> 60); eGFR For Non-African Americans 51 (> 60)
[2017-11-22 07:09] LABS: Hematocrit 28.8 % (35.3-44.9); Immature Granulocytes % 1.4 % (0-4); Lymphocytes # 0.5 K/mcL (0.6-4.6); Lymphocytes % 11.6 %; Mean Corpuscular HGB Conc 31.3 g/dL (31.6-35.5); Mean Corpuscular Hemoglobin 27.9 pg (28.0-33.3); Mean Corpuscular Volume 89.2 fL (83.0-100.0); Mean Platelet Volume 9.8 fL (9.4-12.4); Monocytes # 0.3 K/mcL (0.0-1.3); Monocytes % 7.1 %; Neutrophils # 3.4 K/mcL (1.6-8.9); Platelet Count 127 K/mcL (140-400); Red Blood Count 3.23 M/mcL (3.82-4.97); Red Cell Distribution Width 19.3 % (11.5-14.5); Segmented Neutrophils % 79.9 %
[2017-11-22] MEDS: predniSONE 20 MG TABLET PO SCH ×2 (09:57→17:12)
[2017-11-22] MEDS: Lactulose Oral Soln 20 GM/30 ML UDC PO SCH (09:57)
[2017-11-22] MEDS: Multivit/Ca/Min/Fe/FA 1 TAB TABLET PO SCH (09:57)
[2017-11-22] MEDS: Vitamin B Complex/Vit C/Vit E 1 EACH TABLET PO SCH (09:57)
[2017-11-22] MEDS: Cholecalciferol (D-3) 1,000 UNIT TABLET PO SCH (09:58)
[2017-11-22] MEDS: Sennosides/Docusate Sodium TABLET PO SCH ×2 (09:58→21:04)
[2017-11-22] MEDS: hydrALAZINE 25 MG TABLET PO SCH ×3 (09:58→21:04)
[2017-11-22] MEDS: Ascorbic Acid 500 MG TABLET PO SCH (09:58)
[2017-11-22] MEDS: Diltiazem CD (24hr) 180 MG CAPSULE PO SCH (09:58)
[2017-11-22] MEDS: Lactobacillus 1 EACH CAP.SPRINK PO SCH (09:58)
[2017-11-22] MEDS: Aspirin Enteric Coated 81 MG Tablet PO SCH (09:58)
[2017-11-22] MEDS: Fluticasone Propionate Nasal 50 MCG/SPRAY BOTTLE NS SCH (09:59)
[2017-11-22] MEDS: Insulin LISPRO 300 UNITS/3 ML VIAL SQ SCH ×3 (10:03→17:12)
[2017-11-22] MEDS: Furosemide 40 MG/4 ML VIAL IVP SCH (11:00)
[2017-11-22] MEDS: Nystatin POWDER 30 GM BOTTLE TP SCH ×2 (11:01→21:04)
[2017-11-22] MEDS: Bumetanide 1 MG TABLET PO SCH ×2 (11:51→17:11)
[2017-11-22] MEDS: *HR* Acetaminophen w/Cod 300-30 mg 1 TAB TABLET PO PRN (21:08)
--- NOTE | 2017-11-22 23:43 | Internal Med Progress Note ---
Date of Encounter: 11/22/17 Time of Encounter: 16:57 - Assessment and plan (1) HCAP (healthcare-associated pneumonia) Current Visit: Yes Status: Acute Assessment and plan: Continue IV vancomycin and IV zosyn. Continue nebs and supplemental O2 PRN; wean as tolerated. Start claritin, guaifenesin, Robitussin DM PRN, and mucomyst. (2) Acute exacerbation of chronic obstructive airways disease Current Visit: Yes Status: Acute Assessment and plan: Continue IV vancomycin and IV zosyn as per above. Continue PO prednisone; will send home with taper. Continue night time BiPAP and oxygen supportive treatment ; wean as tolerated. PT/OT consulted. (3) CHF exacerbation Current Visit: Yes Status: Acute Assessment and plan: Continue telemetry. Continue IV lasix. Continue strict I&Os and daily weights. Continue fluid restriction diet. Qualifiers: Heart failure type: diastolic Qualified Code(s): I50.33 - Acute on chronic diastolic (congestive) heart failure (4) Acute and chronic respiratory failure with hypoxia Current Visit: Yes Status: Acute Assessment and plan: Likely secondary to combination of pneumonia, COPD exacerbation, and CHF exacerbation. Continue supportive treatment with BiPAP and nasal cannula oxygen ; wean as tolerated. Continue treating underlying diseases as per above. (5) Elevated troponin Current Visit: Yes Status: Acute Assessment and plan: Asymptomatic. Troponin trended negative x 3. Continue telemetry. (6) DM type 2 (diabetes mellitus, type 2) Current Visit: Yes Status: Chronic Assessment and plan: Continue accuchecks and SSI QID AC/HS. Continue levemir. Qualifiers: Diabetes mellitus jail insulin use: without jail use Diabetes mellitus complication status: with hyperglycemia Qualified Code(s): E11.65 - Type 2 diabetes mellitus with hyperglycemia (7) Paroxysmal A-fib Current Visit: Yes Status: Chronic Assessment and plan: Continue telemetry. Continue home medications. (8) DVT prophylaxis Current Visit: Yes Status: Acute Assessment and plan: Continue SQ heparin. - Time Spent With Patient Total time spent is greater than 50% in coordination of care (as documented) at patient's floor/unit and/or counseling patient: less than 15 minutes - Subjective Interval history: Patient had no acute events overnight. SOB is improved, but still with significant desaturation with exertion. She wants to stop all over her vitamins except her multivitamin because she thinks that she is taking too many pills. She denies chest pain, fever, chills, nausea, vomiting, or abdominal pain. She has no other complaints today. - Constitutional Vitals: Temp Pulse Resp BP Pulse Ox 97.9 F 94 18 170/65 92 11/22/17 19:38 11/22/17 19:38 11/22/17 19:38 11/22/17 19:38 11/22/17 19:38 General appearance: Present: cooperative, A&O X 3, morbidly obese, pleasant, no acute distress, answers questions appropriately - Respiratory Respiratory exam: Absent: accessory muscle use, rales, rhonchi, wheezes Additional comments: Mildly labored WOB, coarse breath sounds bilaterally - Cardiovascular Cardiovascular exam: Present: RRR, +S1, +S2. Absent: diastolic murmur, gallop, rubs, systolic murmur Additional comments: Trace BLE edema - GI/Abdominal GI/Abdominal exam: Present: normal bowel sounds, soft. Absent: distended, hepatomegaly, mass, splenomegaly, tenderness - Psychiatric Psychiatric exam: Present: normal affect, normal mood. Absent: agitated, anxious, depressed - Skin Skin exam: Present: dry, intact, warm. Absent: cyanosis, rash Internal Medicine: Result - Labs CBC & Chem 7: 11/22/17 06:26 11/22/17 06:26 Labs: Short CBC 11/22/17 Range/Units 06:26 WBC 4.2 L (4.3-11.1) K/mcL Hgb 9.0 L (11.5-15.4) g/dL Hct 28.8 L (35.3-44.9) % Plt Count 127 L (140-400) K/mcL Neutrophils # 3.4 (1.6-8.9) K/mcL BMP 11/22/17 06:26 Sodium 139 Potassium 3.5 Chloride 98 Carbon Dioxide 33 H BUN 29 H Creatinine 1.07 Glucose 209 H Calcium 8.5 L - ABG Interpretation ABG results: PT/INR, D-dimer PT 12.4 Seconds (9.4-12.1) H 11/20/17 20:08 Consult Discharge Plan - Plan Referrals: Eduardo Hernandez Jr, MD [Primary Care Provider] - 11/26/17 11:00 am
[2017-11-23] MEDS: Piperacillin/Tazobactam 3.375 GM in 0.9 % Sodium Chloride Mini Bag 100 ML IVPB SCH ×3 (01:02→16:01)
[2017-11-23] MEDS: Insulin DETEMIR 100 UNIT/ML X5UNITS SQ SCH ×2 (01:03→21:45)
[2017-11-23] MEDS: Loratadine 10 MG TABLET PO SCH ×2 (01:03→08:11)
[2017-11-23] MEDS: Insulin LISPRO 300 UNITS/3 ML VIAL SQ SCH ×5 (01:04→21:45)
[2017-11-23] MEDS: Acetylcysteine 10% 2 ML INHSOL IH SCH ×5 (02:45→22:12)
[2017-11-23] MEDS: Ipratropium/Albuterol Neb 3 ML IH SCH ×4 (03:58→22:12)
[2017-11-23 06:03] LABS: Basophils % 0.1 %; Hematocrit 31.6 % (35.3-44.9); Hemoglobin 9.9 g/dL (11.5-15.4); Lymphocytes # 0.9 K/mcL (0.6-4.6); Lymphocytes % 12.6 %; Mean Corpuscular HGB Conc 31.3 g/dL (31.6-35.5); Mean Corpuscular Hemoglobin 28.2 pg (28.0-33.3); Mean Platelet Volume 9.9 fL (9.4-12.4); Monocytes # 0.5 K/mcL (0.0-1.3); Monocytes % 6.3 %; Neutrophils # 5.7 K/mcL (1.6-8.9); Nucleated Red Blood Cells 0.3 /100 WBC (0); Platelet Count 171 K/mcL (140-400); Red Blood Count 3.51 M/mcL (3.82-4.97); Red Cell Distribution Width 19.2 % (11.5-14.5)
[2017-11-23 06:28] LABS: BUN/Creatinine Ratio 27 (6-26); Blood Urea Nitrogen 28 mg/dL (8-23); Calcium 8.5 mg/dL (8.6-10.3); Carbon Dioxide 30 mEq/L (23-29); Chloride 100 mEq/L (98-107); Glucose 246 mg/dL (70-105); Osmolality,Calculated 306 (280-300); Potassium 3.7 mEq/L (3.5-5.1); Sodium 141 mEq/L (136-145); eGFR For African Americans > 60 (> 60); eGFR For Non-African Americans 53 (> 60)
[2017-11-23] MEDS: *HR* Heparin 5,000 UNIT/ML VIAL SQ SCH ×2 (06:45→16:49)
[2017-11-23] MEDS: Diltiazem CD (24hr) 180 MG CAPSULE PO SCH (08:09)
[2017-11-23] MEDS: Lactulose Oral Soln 20 GM/30 ML UDC PO SCH (08:09)
[2017-11-23] MEDS: predniSONE 20 MG TABLET PO SCH ×2 (08:10→16:00)
[2017-11-23] MEDS: Sennosides/Docusate Sodium TABLET PO SCH ×2 (08:10→20:29)
[2017-11-23] MEDS: Cholecalciferol (D-3) 1,000 UNIT TABLET PO SCH (08:10)
[2017-11-23] MEDS: hydrALAZINE 25 MG TABLET PO SCH ×3 (08:10→20:30)
[2017-11-23] MEDS: Aspirin Enteric Coated 81 MG Tablet PO SCH (08:11)
[2017-11-23] MEDS: Multivit/Ca/Min/Fe/FA 1 TAB TABLET PO SCH (08:11)
[2017-11-23] MEDS: Lactobacillus 1 EACH CAP.SPRINK PO SCH (08:11)
[2017-11-23] MEDS: Bumetanide 1 MG TABLET PO SCH ×2 (08:11→16:00)
[2017-11-23] MEDS: Fluticasone Propionate Nasal 50 MCG/SPRAY BOTTLE NS SCH (08:12)
[2017-11-23] MEDS: Nystatin POWDER 30 GM BOTTLE TP SCH ×2 (08:31→20:30)
[2017-11-23] MEDS: *HR* Acetaminophen w/Cod 300-30 mg 1 TAB TABLET PO PRN ×2 (10:53→21:44)
--- NOTE | 2017-11-23 19:09 | Electrocardiograph Report ---
[place] [id number] Test Date: 2017-11-20 Pat Name: Garima Pollack Department: 103 Room: [facility] Gender: F [employer] Agent: GAURAV : 1945 Requested By: Jhonatan Negrete Order Number: [id number] Reading MD: Aury West Measurements Intervals [place] Rate: 130 P: -24 [place]: 118 QRS: -30 QRSD: 88 T: 52 QT: 312 QTc: 389 Interpretive Statements SINUS TACHYCARDIA WITH SHORT [place] INTERVAL BORDERLINE LEFT AXIS DEVIATION [QRS AXIS < -20] ABNORMAL RHYTHM ECG Electronically Signed On 11-23-2017 19:07:22 EDT by Aury West
--- NOTE | 2017-11-23 23:09 | Internal Med Progress Note ---
Date of Encounter: 11/23/17 Time of Encounter: 17:07 - Assessment and plan (1) HCAP (healthcare-associated pneumonia) Current Visit: Yes Status: Acute Assessment and plan: Continue IV vancomycin and IV zosyn. Continue nebs and supplemental O2 PRN; wean as tolerated. Continue claritin, guaifenesin, Robitussin DM PRN, and mucomyst. (2) Acute exacerbation of chronic obstructive airways disease Current Visit: Yes Status: Acute Assessment and plan: Continue IV vancomycin and IV zosyn as per above. Continue PO prednisone; will send home with taper. Continue night time BiPAP and oxygen supportive treatment ; wean as tolerated. PT/OT consulted. Plan for discharge home with home health and home PT/OT when stable. (3) CHF exacerbation Current Visit: Yes Status: Acute Assessment and plan: Continue telemetry. Continue home bumex. Continue strict I&Os and daily weights. Continue fluid restriction diet. Qualifiers: Heart failure type: diastolic Qualified Code(s): I50.33 - Acute on chronic diastolic (congestive) heart failure (4) Acute and chronic respiratory failure with hypoxia Current Visit: Yes Status: Acute Assessment and plan: Likely secondary to combination of pneumonia, COPD exacerbation, and CHF exacerbation. Continue supportive treatment with BiPAP and nasal cannula oxygen ; wean as tolerated. Continue treating underlying diseases as per above. (5) Elevated troponin Current Visit: Yes Status: Acute Assessment and plan: Asymptomatic. Troponin trended negative at 12 hours. Continue telemetry. (6) DM type 2 (diabetes mellitus, type 2) Current Visit: Yes Status: Chronic Assessment and plan: Continue accuchecks and SSI QID AC/HS. Continue levemir. Qualifiers: Diabetes mellitus half-way insulin use: without half-way use Diabetes mellitus complication status: with hyperglycemia Qualified Code(s): E11.65 - Type 2 diabetes mellitus with hyperglycemia (7) Paroxysmal A-fib Current Visit: Yes Status: Chronic Assessment and plan: Continue telemetry. Continue home medications. (8) DVT prophylaxis Current Visit: Yes Status: Acute Assessment and plan: Continue SQ heparin. - Time Spent With Patient Total time spent is greater than 50% in coordination of care (as documented) at patient's floor/unit and/or counseling patient: less than 15 minutes - Subjective Interval history: Patient had no acute events overnight. Breathing continues to improve per patient. She denies chest pain, fever, chills, nausea, vomiting, or abdominal pain. She has no other complaints today. She is not interested in going to SNF and wants to go home with home health and home PT/OT. - Constitutional Vitals: Temp Pulse Resp BP Pulse Ox 98.3 F 75 21 146/66 87 11/23/17 19:16 11/23/17 19:16 11/23/17 22:12 11/23/17 19:16 11/23/17 22:12 General appearance: Present: cooperative, A&O X 3, morbidly obese, pleasant, no acute distress, answers questions appropriately - Respiratory Respiratory exam: Present: CTAB. Absent: accessory muscle use, rales, rhonchi, wheezes Additional comments: Mildly labored WOB - Cardiovascular Cardiovascular exam: Present: RRR, +S1, +S2. Absent: diastolic murmur, gallop, rubs, systolic murmur Additional comments: Trace BLE edema - GI/Abdominal GI/Abdominal exam: Present: normal bowel sounds, soft. Absent: distended, hepatomegaly, mass, splenomegaly, tenderness - Psychiatric Psychiatric exam: Present: normal affect, normal mood. Absent: agitated, anxious, depressed - Skin Skin exam: Present: dry, intact, warm. Absent: cyanosis, rash Internal Medicine: Result - Labs CBC & Chem 7: 11/23/17 05:22 11/23/17 05:22 Labs: Short CBC 11/23/17 Range/Units 05:22 WBC 7.2 D (4.3-11.1) K/mcL Hgb 9.9 L (11.5-15.4) g/dL Hct 31.6 L (35.3-44.9) % Plt Count 171 (140-400) K/mcL Neutrophils # 5.7 (1.6-8.9) K/mcL BMP 11/23/17 05:22 Sodium 141 Potassium 3.7 Chloride 100 Carbon Dioxide 30 H BUN 28 H Creatinine 1.03 Glucose 246 H Calcium 8.5 L - ABG Interpretation ABG results: PT/INR, D-dimer PT 12.4 Seconds (9.4-12.1) H 11/20/17 20:08 Consult Discharge Plan - Plan Referrals: Eduardo Hernandez Jr, MD [Primary Care Provider] - 11/26/17 11:00 am
[2017-11-24] MEDS: Piperacillin/Tazobactam 3.375 GM in 0.9 % Sodium Chloride Mini Bag 100 ML IVPB SCH ×3 (00:23→16:34)
[2017-11-24] MEDS: Ipratropium/Albuterol Neb 3 ML IH SCH ×4 (03:39→22:46)
[2017-11-24] MEDS: Acetylcysteine 10% 2 ML INHSOL IH SCH ×4 (03:39→22:46)
[2017-11-24] MEDS: *HR* Heparin 5,000 UNIT/ML VIAL SQ SCH ×2 (05:50→16:35)
[2017-11-24 06:22] LABS: Hematocrit 28.3 % (35.3-44.9); Hemoglobin 8.9 g/dL (11.5-15.4); Immature Granulocytes % 1.9 % (0-4); Lymphocytes % 15.8 %; Mean Corpuscular HGB Conc 31.4 g/dL (31.6-35.5); Mean Corpuscular Hemoglobin 28.3 pg (28.0-33.3); Mean Corpuscular Volume 90.1 fL (83.0-100.0); Mean Platelet Volume 9.6 fL (9.4-12.4); Monocytes % 6.5 %; Platelet Count 140 K/mcL (140-400); Red Blood Count 3.14 M/mcL (3.82-4.97); Red Cell Distribution Width 19.2 % (11.5-14.5); Segmented Neutrophils % 75.8 %
[2017-11-24 06:23] LABS: Lymphocytes # 0.8 K/mcL (0.6-4.6); Monocytes # 0.3 K/mcL (0.0-1.3); Neutrophils # 3.6 K/mcL (1.6-8.9); Nucleated Red Blood Cells 0.6 /100 WBC (0)
[2017-11-24 06:42] LABS: BUN/Creatinine Ratio 27 (6-26); Blood Urea Nitrogen 25 mg/dL (8-23); Calcium 8.2 mg/dL (8.6-10.3); Carbon Dioxide 32 mEq/L (23-29); Chloride 100 mEq/L (98-107); Glucose 186 mg/dL (70-105); Osmolality,Calculated 297 (280-300); Potassium 3.5 mEq/L (3.5-5.1); Sodium 139 mEq/L (136-145); eGFR For African Americans > 60 (> 60); eGFR For Non-African Americans > 60 (> 60)
[2017-11-24] MEDS: Insulin LISPRO 300 UNITS/3 ML VIAL SQ SCH ×4 (07:55→21:54)
[2017-11-24] MEDS: Bumetanide 1 MG TABLET PO SCH ×2 (07:56→16:35)
[2017-11-24] MEDS: predniSONE 20 MG TABLET PO SCH ×2 (07:56→16:35)
[2017-11-24] MEDS: Aspirin Enteric Coated 81 MG Tablet PO SCH (07:57)
[2017-11-24] MEDS: Sennosides/Docusate Sodium TABLET PO SCH ×2 (07:58→21:53)
[2017-11-24] MEDS: Loratadine 10 MG TABLET PO SCH (07:58)
[2017-11-24] MEDS: Lactobacillus 1 EACH CAP.SPRINK PO SCH (07:58)
[2017-11-24] MEDS: Cholecalciferol (D-3) 1,000 UNIT TABLET PO SCH (07:58)
[2017-11-24] MEDS: hydrALAZINE 25 MG TABLET PO SCH ×3 (07:58→21:53)
[2017-11-24] MEDS: Nystatin POWDER 30 GM BOTTLE TP SCH ×2 (07:59→21:55)
[2017-11-24] MEDS: Diltiazem CD (24hr) 180 MG CAPSULE PO SCH (07:59)
[2017-11-24] MEDS: Multivit/Ca/Min/Fe/FA 1 TAB TABLET PO SCH (07:59)
[2017-11-24] MEDS: Lactulose Oral Soln 20 GM/30 ML UDC PO SCH (07:59)
[2017-11-24] MEDS: Fluticasone Propionate Nasal 50 MCG/SPRAY BOTTLE NS SCH (10:13)
[2017-11-24] MEDS ORDERED: Aminoglycoside Consult 1 EACH MC ONE (15:45)
--- NOTE | 2017-11-24 16:46 | Internal Med Progress Note ---
Date of Encounter: 11/24/17 Time of Encounter: 16:44 - Assessment and plan (1) HCAP (healthcare-associated pneumonia) Current Visit: Yes Status: Acute Assessment and plan: Improving. Discontinue IV vancomycin and IV zosyn. Start levaquin 750 mg PO QD. Continue nebs and supplemental O2 PRN; wean as tolerated. Continue claritin, guaifenesin, Robitussin DM PRN, and mucomyst. (2) Acute exacerbation of chronic obstructive airways disease Current Visit: Yes Status: Acute Assessment and plan: Improving. Transition to PO levaquin as per above. Continue PO prednisone; will send home with taper. Continue night time BiPAP and oxygen supportive treatment; wean as tolerated. PT/OT consulted. Plan for discharge home with home health and home PT/OT when stable. (3) CHF exacerbation Current Visit: Yes Status: Acute Assessment and plan: Continue telemetry. Continue home bumex. Continue strict I&Os and daily weights. Continue fluid restriction diet. Qualifiers: Heart failure type: diastolic Qualified Code(s): I50.33 - Acute on chronic diastolic (congestive) heart failure (4) Acute and chronic respiratory failure with hypoxia Current Visit: Yes Status: Acute Assessment and plan: Likely secondary to combination of pneumonia, COPD exacerbation, and CHF exacerbation. Continue supportive treatment with BiPAP and nasal cannula oxygen ; wean as tolerated. Continue treating underlying diseases as per above. (5) Elevated troponin Current Visit: Yes Status: Acute Assessment and plan: Asymptomatic. Troponin trended negative at 12 hours. Continue telemetry. (6) DM type 2 (diabetes mellitus, type 2) Current Visit: Yes Status: Chronic Assessment and plan: Continue accuchecks and SSI QID AC/HS. Continue levemir. Qualifiers: Diabetes mellitus medical terminologist insulin use: without fdc use Diabetes mellitus complication status: with hyperglycemia Qualified Code(s): E11.65 - Type 2 diabetes mellitus with hyperglycemia (7) Paroxysmal A-fib Current Visit: Yes Status: Chronic Assessment and plan: Continue telemetry. Continue home medications. (8) DVT prophylaxis Current Visit: Yes Status: Acute Assessment and plan: Continue SQ heparin. - Time Spent With Patient Total time spent is greater than 50% in coordination of care (as documented) at patient's floor/unit and/or counseling patient: 25 - 35 minutes - Subjective Interval history: Patient had no acute events overnight. Breathing is good today. She denies chest pain, fever, chills, nausea, vomiting, or abdominal pain. She has no other complaints today. Daughter is in room today. We discussed going home with home health and home PT/OT. Daughter is going to try to help patient with transfer today so that she can help her at home. We are planning on discharge tomorrow. - Constitutional Vitals: Temp Pulse Resp BP Pulse Ox 97.8 F 76 18 162/74 94 11/24/17 15:38 11/24/17 15:38 11/24/17 16:07 11/24/17 15:38 11/24/17 16:07 General appearance: Present: cooperative, A&O X 3, morbidly obese, pleasant, no acute distress, answers questions appropriately - Respiratory Respiratory exam: Absent: accessory muscle use, rales, rhonchi, wheezes Additional comments: Mildly labored WOB, coarse breath sounds bilaterally - Cardiovascular Cardiovascular exam: Present: RRR, +S1, +S2. Absent: diastolic murmur, gallop, rubs, systolic murmur Additional comments: Trace BLE edema - GI/Abdominal GI/Abdominal exam: Present: normal bowel sounds, soft. Absent: distended, hepatomegaly, mass, splenomegaly, tenderness - Psychiatric Psychiatric exam: Present: normal affect, normal mood. Absent: agitated, anxious, depressed - Skin Skin exam: Present: dry, intact, warm. Absent: cyanosis, rash Internal Medicine: Result - Labs CBC & Chem 7: 11/24/17 06:07 11/24/17 06:07 Labs: Short CBC 11/24/17 Range/Units 06:07 WBC 4.8 (4.3-11.1) K/mcL Hgb 8.9 L (11.5-15.4) g/dL Hct 28.3 L (35.3-44.9) % Plt Count 140 (140-400) K/mcL Neutrophils # 3.6 (1.6-8.9) K/mcL BMP 11/24/17 06:07 Sodium 139 Potassium 3.5 Chloride 100 Carbon Dioxide 32 H BUN 25 H Creatinine 0.91 Glucose 186 H Calcium 8.2 L - ABG Interpretation ABG results: PT/INR, D-dimer PT 12.4 Seconds (9.4-12.1) H 11/20/17 20:08 Consult Discharge Plan - Plan Referrals: Eduardo Hernandez Jr, MD [Primary Care Provider] - 11/26/17 11:00 am
[2017-11-24] MEDS: *HR* Acetaminophen w/Cod 300-30 mg 1 TAB TABLET PO PRN ×2 (16:48→22:23)
[2017-11-24] MEDS: levoFLOXacin 750 MG TABLET PO SCH (17:02)
[2017-11-24] MEDS: Insulin DETEMIR 100 UNIT/ML X5UNITS SQ SCH (21:54)
[2017-11-25] MEDS: Ipratropium/Albuterol Neb 3 ML IH SCH ×2 (04:24→10:34)
[2017-11-25] MEDS: Acetylcysteine 10% 2 ML INHSOL IH SCH ×2 (04:24→10:34)
[2017-11-25] MEDS: *HR* Heparin 5,000 UNIT/ML VIAL SQ SCH (06:02)
[2017-11-25] MEDS: Multivit/Ca/Min/Fe/FA 1 TAB TABLET PO SCH (08:20)
[2017-11-25] MEDS: Lactulose Oral Soln 20 GM/30 ML UDC PO SCH (08:20)
[2017-11-25] MEDS: *HR* Acetaminophen w/Cod 300-30 mg 1 TAB TABLET PO PRN ×2 (08:20→15:10)
[2017-11-25] MEDS: Loratadine 10 MG TABLET PO SCH (08:21)
[2017-11-25] MEDS: levoFLOXacin 750 MG TABLET PO SCH (08:21)
[2017-11-25] MEDS: hydrALAZINE 25 MG TABLET PO SCH ×2 (08:21→15:10)
[2017-11-25] MEDS: Sennosides/Docusate Sodium TABLET PO SCH (08:21)
[2017-11-25] MEDS: predniSONE 20 MG TABLET PO SCH (08:21)
[2017-11-25] MEDS: Aspirin Enteric Coated 81 MG Tablet PO SCH (08:21)
[2017-11-25] MEDS: Lactobacillus 1 EACH CAP.SPRINK PO SCH (08:22)
[2017-11-25] MEDS: Bumetanide 1 MG TABLET PO SCH (08:22)
[2017-11-25] MEDS: Cholecalciferol (D-3) 1,000 UNIT TABLET PO SCH (08:22)
[2017-11-25] MEDS: Diltiazem CD (24hr) 180 MG CAPSULE PO SCH (08:22)
[2017-11-25] MEDS: Fluticasone Propionate Nasal 50 MCG/SPRAY BOTTLE NS SCH (08:23)
[2017-11-25] MEDS: Nystatin POWDER 30 GM BOTTLE TP SCH (08:23)
[2017-11-25] MEDS: Insulin LISPRO 300 UNITS/3 ML VIAL SQ SCH ×2 (08:24→11:59)
[2017-11-25 10:58] VITALS: BP 129/51
--- NOTE | 2017-11-25 11:45 | Discharge Summary ---
- NOTES TO OUTPATIENT PROVIDER Notes to Outpatient Provider: Follow up with PCP in 2-3 days after discharge. Hospice referral has been made and is pending. Follow up with hospice as outpatient. Date of Encounter: 11/25/17 Time of Encounter: 11:43 - Discharge Diagnosis (1) HCAP (healthcare-associated pneumonia) Priority: Primary Status: Acute (2) Acute exacerbation of chronic obstructive airways disease Priority: Secondary Status: Acute (3) CHF exacerbation Priority: Secondary Status: Acute Qualifiers: Heart failure type: diastolic Qualified Code(s): I50.33 - Acute on chronic diastolic (congestive) heart failure (4) Acute and chronic respiratory failure with hypoxia Priority: Secondary Status: Acute (5) Elevated troponin Priority: Secondary Status: Acute (6) DM type 2 (diabetes mellitus, type 2) Priority: Secondary Status: Chronic Qualifiers: Diabetes mellitus group home insulin use: without ocean transportation intermediary use Diabetes mellitus complication status: with hyperglycemia Qualified Code(s): E11.65 - Type 2 diabetes mellitus with hyperglycemia (7) Paroxysmal A-fib Priority: Secondary Status: Chronic (8) DVT prophylaxis Priority: Secondary Status: Acute Hospital course: Ms. Pollack is a 71 year old white female admitted for acute on chronic respiratory failure, HCAP, acute exacerbation of COPD, and acute on chronic CHF. She was admitted to general medical floor with telemetry. She was started on supplemental O2, IV vancomyin and IV zosyn, IV solumedrol, and IV lasix. She put out good urine. Respiratory status continued to improved throughout admission. She was weaned down to home supplemental O2 of 5 L by NC on day of discharge. She was transition to PO levaquin and PO prednisone with improvement. She will be discharged home with 5 more days of PO levaquin and a prednisone taper. She was tranisitioned back to her home bumex. Troponin was mildly elevated at 0.04 upon admission, but normalized at 12 hours. She remained chest pain free throughout hospitalization. PT/OT evaluated her and recommended SNF. Patient was adamant about not going back to a SNF. She is agreeable to home health with home nursing/PT/OT. She will follow up with PCP in 2-3 days after discharge. Hospice referral has been made and is pending. She will follow up with hospice as outpatient. Patient has met maximum benefit of this hospitalization and will be discharged home in stable condition. Discharge discussed with: patient, family, nurse - Time Spent with Patient Total time spent providing and/or coordinating discharge services: Greater than 30 minutes - Discharge Medications Prescriptions: levoFLOXacin [Levaquin] 750 mg PO DAILY 5 Days #5 tablet predniSONE [PredniSONE] See Taper PO BIDWM 12 Days #28 tablet Home Medications: Amitriptyline [Elavil] 10 mg PO HS 08/23/16 [History] Oxygen 5.5 l NS CONT 09/21/16 [History] Diltiazem CD (24hr) [Cardizem CD] 180 mg PO DAILY #30 cap.er.24h 10/14/16 [Rx] Calcium Carbonate [Calcium] 500 mg PO DAILY 12/06/16 [History] Cholecalciferol (D-3) [Vitamin D] 1,000 unit PO DAILY 12/06/16 [History] Docusate [Colace] 100 mg PO DAILY PRN 12/06/16 [History] Ipratropium/Albuterol Neb [Duoneb] 3 ml IH Q6H 12/06/16 [History] Multivits Min/Iron/FA/Herb#186 [Hair, Skin and Nails Caplet] 1 tab PO DAILY 05/15 [History] Acetaminophen w/Cod 300-30 mg [Tylenol w/Codeine #3] 1 tab PO TID PRN 12/31/16 [ History] Atorvastatin Calcium [Lipitor] 20 mg PO BID 06/04/17 [History] Ferrous Gluconate 324 mg PO Q48H 06/04/17 [History] Metoprolol [Lopressor] 50 mg PO BID 06/04/17 [History] [place]-3 Fatty Acids [Fish Oil] 300 mg PO DAILY 06/04/17 [History] Pantoprazole Sodium 40 mg PO BID 06/04/17 [History] metFORMIN [Glucophage] 1,000 mg PO BID 06/04/17 [History] Bumetanide [Bumex] 2 mg PO BID 08/02/17 [History] Fluticasone Propionate Nasal [Flonase] 1 spr NS DAILY 08/02/17 [History] Loperamide [Imodium] 2 mg PO Q4HR PRN #30 capsule 09/10/17 [Rx] Acetaminophen [Tylenol] 650 mg PO Q6HR PRN tablet 11/04/17 [Rx] Aspirin Enteric Coated [Aspirin EC] 81 mg PO DAILY tablet. 11/04/17 [Rx] Polyethylene Glycol 3350 [MiraLAX] 17 gm PO DAILY powd.pack 11/04/17 [Rx] Sennosides/Docusate Sodium [Senna Plus] 2 each PO BID tablet 11/04/17 [Rx] hydrALAZINE [HydrALAZINE] 50 mg PO TID tablet 11/04/17 [Rx] Allopurinol [Zyloprim 100 MG] 100 mg PO DAILY 11/20/17 [History] Lactobacillus [Culturelle] 1 tab PO DAILY 11/20/17 [History] Lactulose 30 ml PO DAILY 11/20/17 [History] Nystatin POWDER [Nystop] 1 appl TP BID 11/20/17 [History] Potassium Chloride [Klor-Con 10] 10 meq PO DAILY 11/20/17 [History] Umeclidinium Brm/Vilanterol Tr [Anoro Ellipta 62.5-25 Mcg INH] 1 puff IH DAILY 11/20/17 [History] levoFLOXacin [Levaquin] 750 mg PO DAILY 5 Days #5 tablet 11/25/17 [Rx] predniSONE [PredniSONE] See Taper PO BIDWM 12 Days #28 tablet 11/25/17 [Rx] Allergies/Adverse Reactions: 3 Allergy/AdvReac Type Severity Reaction Status Date / Time No Known Allergies Allergy Verified 11/20/17 19:49 Date of admission: 11/21/17 02:09 Primary care physician: Eduardo Hernandez Jr, MD Consults: 11/21/17 19:44 Consult to Diabetes Education [CONS] Routine Comment: Reason for Consult: Diabetic diet education 11/22/17 08:35 Consult to Waste Machine Offbearer [CONS] Routine Reason for SW Consult: retrun traditions 11/22/17 13:42 Consult to Physical Therapy [CONS] Routine Comment: Evaluate, develop and implement POC Reason for Consult: weakness. Does patient have active BEDREST order?: No Is patient medically & hemodynamically stable?: Yes Patient assessed for mobility or mobilized this visit?: No 11/22/17 13:43 Consult to Occupational Therapy [CONS] Routine Comment: Evaluate, develop and implement POC Reason for Consult: weakness. Does patient have active BEDREST order?: No Is patient medically & hemodynamically stable?: Yes Patient assessed for mobility or mobilized this visit?: Yes 11/23/17 13:43 Consult to Waste Machine Offbearer [CONS] Stat Reason for SW Consult: SNF Placement Discharging clinician: Lino Rodriguez Anticipated date of discharge: 11/25/17 - Constitutional Vitals: Temp Pulse Resp BP Pulse Ox 98.1 F 68 17 129/51 94 11/25/17 10:56 11/25/17 10:56 11/25/17 10:56 11/25/17 10:56 11/25/17 10:56 General appearance: Present: cooperative, A&O X 3, morbidly obese, pleasant, no acute distress, answers questions appropriately - Respiratory Respiratory exam: Absent: accessory muscle use, rales, rhonchi, wheezes Additional comments: Normal WOB, coarse breath sounds bilaterally - Cardiovascular Cardiovascular exam: Present: RRR, +S1, +S2. Absent: diastolic murmur, gallop, rubs, systolic murmur Additional comments: Trace BLE edema - GI/Abdominal GI/Abdominal exam: Present: normal bowel sounds, soft. Absent: distended, hepatomegaly, mass, splenomegaly, tenderness - Psychiatric Psychiatric exam: Present: normal affect, normal mood. Absent: agitated, anxious, depressed - Skin Skin exam: Present: dry, intact, warm. Absent: cyanosis, rash - Patient Status Disposition: Home Health Service Condition: Good Overall status at discharge: patient is progressing back to baseline - Discharge Instructions Instructions: Chronic Obstructive Pulmonary Disease (DC) Follow Up With: Eduardo Hernandez Jr, MD [Primary Care Provider] - 11/26/17 11:00 am Forms: ED Satisfaction Letter Additional Instructions: Follow up with PCP in 2-3 days after discharge. Hospice referral has been made and is pending. Follow up with hospice as outpatient. - Diet and Activity Activity: as per physical therapy, wear oxygen at all times Diet: diabetic diet, low fat, low cholesterol, low salt diet, other (Cardiac Diet)
--- NOTE | 2017-11-25 12:08 | Physician Discharge Referral ---
Home Health/Hosp Referral Info Transfer to: Home Health Provider in Charge Post Discharge: PCP - Diagnosis (1) HCAP (healthcare-associated pneumonia) Priority: Primary Status: Acute (2) Acute exacerbation of chronic obstructive airways disease Priority: Secondary Status: Acute (3) CHF exacerbation Priority: Secondary Status: Acute (4) Acute and chronic respiratory failure with hypoxia Priority: Secondary Status: Acute (5) Elevated troponin Priority: Secondary Status: Acute (6) DM type 2 (diabetes mellitus, type 2) Priority: Secondary Status: Chronic (7) Paroxysmal A-fib Priority: Secondary Status: Chronic (8) DVT prophylaxis Priority: Secondary Status: Acute - Respiratory Orders Oxygen / L per min (5 L NC) Smoking Cessation: Smoking cessation has been advised. For more information, call the [place] Tobacco Quit Line at 6-747-DNVA-NOW. - Diet/Nutrition Diet/Nutrition Orders: No Added Salt (EDWAR), Cardiac, No Concentrated Sweets ( Diabetic Diet) - Activity Activity: List: Per physical therapy - Services Needed Following services are medically necessary services: Nursing, Physical Therapy, Occupational Therapy - Transfer Medications Prescriptions: levoFLOXacin [Levaquin] 750 mg PO DAILY 5 Days #5 tablet predniSONE [PredniSONE] See Taper PO BIDWM 12 Days #28 tablet Home Medications: Amitriptyline [Elavil] 10 mg PO HS 08/23/16 [History] Oxygen 5.5 l NS CONT 09/21/16 [History] Diltiazem CD (24hr) [Cardizem CD] 180 mg PO DAILY #30 cap.er.24h 10/14/16 [Rx] Calcium Carbonate [Calcium] 500 mg PO DAILY 12/06/16 [History] Cholecalciferol (D-3) [Vitamin D] 1,000 unit PO DAILY 12/06/16 [History] Docusate [Colace] 100 mg PO DAILY PRN 12/06/16 [History] Ipratropium/Albuterol Neb [Duoneb] 3 ml IH Q6H 12/06/16 [History] Multivits Min/Iron/FA/Herb#186 [Hair, Skin and Nails Caplet] 1 tab PO DAILY 05/15 [History] Acetaminophen w/Cod 300-30 mg [Tylenol w/Codeine #3] 1 tab PO TID PRN 12/31/16 [ History] Atorvastatin Calcium [Lipitor] 20 mg PO BID 06/04/17 [History] Ferrous Gluconate 324 mg PO Q48H 06/04/17 [History] Metoprolol [Lopressor] 50 mg PO BID 06/04/17 [History] [place]-3 Fatty Acids [Fish Oil] 300 mg PO DAILY 06/04/17 [History] Pantoprazole Sodium 40 mg PO BID 06/04/17 [History] metFORMIN [Glucophage] 1,000 mg PO BID 06/04/17 [History] Bumetanide [Bumex] 2 mg PO BID 08/02/17 [History] Fluticasone Propionate Nasal [Flonase] 1 spr NS DAILY 08/02/17 [History] Loperamide [Imodium] 2 mg PO Q4HR PRN #30 capsule 09/10/17 [Rx] Acetaminophen [Tylenol] 650 mg PO Q6HR PRN tablet 11/04/17 [Rx] Aspirin Enteric Coated [Aspirin EC] 81 mg PO DAILY tablet. 11/04/17 [Rx] Polyethylene Glycol 3350 [MiraLAX] 17 gm PO DAILY powd.pack 11/04/17 [Rx] Sennosides/Docusate Sodium [Senna Plus] 2 each PO BID tablet 11/04/17 [Rx] hydrALAZINE [HydrALAZINE] 50 mg PO TID tablet 11/04/17 [Rx] Allopurinol [Zyloprim 100 MG] 100 mg PO DAILY 11/20/17 [History] Lactobacillus [Culturelle] 1 tab PO DAILY 11/20/17 [History] Lactulose 30 ml PO DAILY 11/20/17 [History] Nystatin POWDER [Nystop] 1 appl TP BID 11/20/17 [History] Potassium Chloride [Klor-Con 10] 10 meq PO DAILY 11/20/17 [History] Umeclidinium Brm/Vilanterol Tr [Anoro Ellipta 62.5-25 Mcg INH] 1 puff IH DAILY 11/20/17 [History] levoFLOXacin [Levaquin] 750 mg PO DAILY 5 Days #5 tablet 11/25/17 [Rx] predniSONE [PredniSONE] See Taper PO BIDWM 12 Days #28 tablet 11/25/17 [Rx] Allergies/Adverse Reactions: 3 Allergy/AdvReac Type Severity Reaction Status Date / Time No Known Allergies Allergy Verified 11/20/17 19:49 Certification: Further, I certify that my clinical findings support that this patient is homebound (i.e. absences from home require considerable and taxing effort and are for medical reasons or anabaptist services or infrequently or short duration when for other reasons) because: COPD, CHF, and HCAP. Homebound Reason: Patient requires assistance of a person or device to safely leave home, Leaving home requires considerable and taxing effort due to condition, Severity of cardiac or pulmonary status limits activity tolerance Attestation: My signature below is to certify that this patient is under my care and that I, or nurse practitioner, or a physician's personal assistant working with me, has a face-to -face encounter with this patient.
== END 2017-11-25 15:46 | disposition home health service (06) | DRG 291 ==
LOC: EMEROO 19:45 → 2ANU 19:45
PROVIDERS: ADMIT Internal Medicine; ATTEND Internal Medicine